=== PATIENT | female | born 1940 | race Caucasian/White ===

== ENCOUNTER 2023-10-03 20:27 | Inpatient (IN) | payer MEDICARE, SELFPAY ==
--- NOTE | ~2023-10-03 | CT_ITS ---
EXAMINATION: CT HEAD WITHOUT CONTRAST CLINICAL INFORMATION: Cognitive decline COMPARISON: None available. TECHNIQUE: Contiguous axial imaging was performed from the skull base to vertex without intravenous administration of contrast. This CT examination was performed using dose optimization techniques as appropriate, variously including the following: *Automated exposure control *Adjustment of mA and/or kV according to patient size (this includes techniques or standardized protocols for targeted exams where dose is matched to indication/reason for exam; i.e. extremities or head) *Use of iterative reconstruction technique DLP: 679 mGy-cm FINDINGS: Ventricles, sulci and cisterns are dilated. Bilateral frontal periventricular white matters show decrease in attenuation. There is no midline shift, no abnormal intra- or extra- axial fluid accumulation. Arnett and white matter differentiation is normal. Bone window images show no evidence of skull fracture. CT/CT head/brain wo IV con IMPRESSION: 1. 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 2. No intracranial hemorrhage or skull fracture is seen. 3. No evidence of space occupying lesion could be found. 4. The current plain CT scan of the brain shows no diagnostic evidence of acute cerebral infarction.
[2023-10-03 20:35] VITALS: BP 145/37; BP 190/90; PULSE 56; PULSE 70; RESP 18; TEMP 36.4; O2SAT 100; O2SAT 99; BMI 15.3
[2023-10-03 21:09] LABS: MANUAL DIFF FLAG NO
[2023-10-03 21:11] LABS: Basophils Percent Auto 0.4 % (0-2); Eosinophils Absolute Auto 0.1 X10*3/uL (0.0-0.4); Eosinophils Percent Auto 1.2 % (0-4); Hematocrit 37.5 % (37.0-47.0); Hemoglobin 13.2 g/dl (12.0-16.0); Imm Gran Abs Auto 0.02 X10*3/uL (0.00-0.03); Imm Gran Pct Auto 0.2 % (0.0-0.4); Lymphocytes Absolute Auto 1.5 X10*3/uL (1.2-4.9); Lymphocytes Percent Auto 16.3 % (20-40); Mean Corpuscular HGB Conc 35.2 g/dl (31.0-35.0); Mean Corpuscular Hemoglobin 30.3 pg (27.0-33.0); Mean Platelet Volume 9.5 fL (9.4-12.3); Monocytes Absolute Auto 0.4 X10*3/uL (0.1-1.2); Monocytes Percent Auto 3.8 % (2-11); Neutrophils Absolute Auto 7.2 x10*3/uL (2.0-8.3); Neutrophils Percent Auto 78.1 % (45-73); Platelet Count 166 X10*3/uL (160-400); Red Blood Count 4.36 X10*6/uL (4.20-5.50); Red Cell Distribution Width 14.7 % (11.0-16.0); White Blood Count 9.2 X10*3/uL (4.8-10.8)
--- NOTE | 2023-10-03 21:28 | ED_ITS ---
HPI - Psych General Chief Complaint: Psychiatric Symptoms Stated Complaint: section 12 from [facility], delusional, hallucinations Time Seen by Provider: 10/03/23 20:34 Source: patient and EMS Mode of arrival: EMS Limitations: altered mental status History of Present Illness ED Provider: paul SPENCE Narrative: Patient's history of dementia and depression Section 12 in the field by and 4 hallucination and delusions verbally aggressive and paranoid with agitation thinking her who is 82 years old having affair with her visiting nurse patient denies any complaints at this time still feels that her having affair with the visiting nurse Related Data Allergies Allergy/AdvReac Type Severity Reaction Status Date / Time codeine Allergy Unknown Verified 10/03/23 20:40 Review of Systems 2 Review of Systems: Yes all other systems are reviewed and are negative [facility] Social History Social History Smoked in Last 30 Days: No Advance Directives: No Advance Directives Information Provided: No Do you have a plan to hurt others: No Plan Physical Exam 2 Vital Signs: Vital Signs: Last Vital Signs Temp 97.5 F 10/04/23 02:00 Pulse 54 10/04/23 02:00 Resp 16 10/04/23 02:00 BP 137/48 L 10/04/23 02:00 Pulse Ox 98 10/04/23 02:00 O2 Del Method Room Air 10/04/23 02:00 BMI result Body Mass Index 15.3 Appearance: Alert. Oriented X2-3. No acute distress. Eyes: PERRLA, No Nystagmus ENT: Pharynx normal. Oral Mucosa moist Neck: Normal inspection. Neck supple. CVS: Normal heart rate and rhythm. Pulses normal. Respiratory: No respiratory distress. Equal air entry bilateral, no wheezing/rales/rhonchi Abdomen: Soft and nontender. Bowel sounds are present, no mass palpable, no CVA tenderness Skin: Skin warm and dry. Normal skin color. Normal skin turgor. Extremities: No lower extremity edema. No calf tenderness Neuro: Oriented X 2-3. No motor deficit. No sensory deficit.No cerebellar signs , cranial nerves II-XII intact Medical Decision Making Lab Data 10/03/23 21:03 10/03/23 21:03 Labs: Lab Results 10/03/23 10/03/23 Range/Units 21:03 22:23 WBC 9.2 (4.8-10.8) X10*3/uL RBC 4.36 (4.20-5.50) X10*6/uL Hgb 13.2 (12.0-16.0) g/dl Hct 37.5 (37.0-47.0) % MCV 86.0 (80.0-98.0) fL MCH 30.3 (27.0-33.0) pg MCHC 35.2 H (31.0-35.0) g/dl RDW 14.7 (11.0-16.0) % Plt Count 166 (160-400) X10*3/uL MPV 9.5 (9.4-12.3) fL Immature Gran % (Auto) 0.2 (0.0-0.4) % Neut % (Auto) 78.1 H (45-73) % Lymph % (Auto) 16.3 L (20-40) % [place] % (Auto) 3.8 (2-11) % Eos % (Auto) 1.2 (0-4) % Baso % (Auto) 0.4 (0-2) % Lymph # (Auto) 1.5 (1.2-4.9) X10*3/uL [place] # (Auto) 0.4 (0.1-1.2) X10*3/uL Eos # (Auto) 0.1 (0.0-0.4) X10*3/uL Baso # (Auto) 0.0 (0.0-0.2) X10*3/uL Abs Immat Gran (auto) 0.02 (0.00-0.03) X10*3/uL Absolute Neuts (auto) 7.2 (2.0-8.3) x10*3/uL Absolute Nucleated RBC 0.000 (0.0-0.012) X10*3/uL Nucleated RBC % (auto) 0.0 (0.0-0.2) /100WBC Sodium 143 (135-145) mmol/L Potassium 4.3 (3.3-5.1) mmol/L Chloride 112 H (96-108) mmol/L Carbon Dioxide 19 L (22-29) mmol/L Anion Gap 16 (12-20) BUN 18 H (9-16) mg/dL Creatinine 1.20 (0.5-1.4) mg/dL Estim Creat Clear Calc 50.2 Estimated GFR 43 Random Glucose 122 H (60-115) mg/dL Calcium 10.2 (8.4-10.2) mg/dL Total Bilirubin 0.5 (0.0-1.0) mg/dL AST 12 (5-31) U/L ALT 8 (0-31) U/L Alkaline Phosphatase 67 (39-117) U/L Total Protein 6.3 L (6.5-8.0) g/dL Albumin 3.7 (3.5-5.0) g/dL Urine Color Yellow Urine Appearance Clear Urine pH 5.5 (5.0-9.0) Ur Specific [place] 1.025 (1.005-1.025) Urine Protein Negative (Neg-Trace) mg/dL Urine Glucose (UA) Negative (Negative) mg/dL Urine Ketones Trace (Negative) mg/dL Urine Blood Negative (Negative) Urine Nitrite Negative (Negative) Ur Leukocyte Esterase Negative (Negative) Urine Opiates Screen Not Detected (Not Detect) Ur Buprenorphine Scrn Not Detected (Not Detect) ng/mL Ur Oxycodone Screen Not Detected (Not Detect) ng/mL Urine Methadone Screen Not Detected (Not Detect) ng/mL Urine Fentanyl Screen Not Detected (Not Detect) Ur Barbiturates Screen Not Detected (Not Detect) Ur Phencyclidine Scrn Not Detected (Not Detect) Ur Amphetamines Screen Not Detected (Not Detect) U Benzodiazepines Scrn Not Detected (Not Detect) Urine Cocaine Screen Not Detected (Not Detect) U Marijuana (THC) Screen Not Detected (Not Detect) Ethyl Alcohol < 10 mg/dL Discharge Plan Discharge Clinical Impression: Dementia with psychotic disturbance Patient Disposition: Still a Patient Interventions: Marty-Suicide Risk Severity Scale Last Done: 10/03/23 20:41 Print Language: German
[2023-10-03 21:43] LABS: Alanine Aminotransferase 8 U/L (0-31); Albumin Level 3.7 g/dL (3.5-5.0); Alkaline Phosphatase 67 U/L (39-117); Anion Gap 16 (12-20); Aspartate Amino Transferase 12 U/L (5-31); Bilirubin Total 0.5 mg/dL (0.0-1.0); Blood Urea Nitrogen 18 mg/dL (9-16); Calcium 10.2 mg/dL (8.4-10.2); Carbon Dioxide 19 mmol/L (22-29); Chloride 112 mmol/L (96-108); Creatinine Clr Calc Pharmacy 50.2; Estimated Glomerular Filt Rate 43; Ethanol < 10 mg/dL; Glucose Random 122 mg/dL (60-115); Potassium 4.3 mmol/L (3.3-5.1); Sodium 143 mmol/L (135-145); Total Protein 6.3 g/dL (6.5-8.0)
--- OUTSIDE RECORDS SUMMARY | 2023-10-03 21:55 | XMS_ITS | Continuity of Care Document ---
Author Organization [facility] Address [address] [place] [id number]- Care Team Providers Care Filter Helper Name Role Phone Sathish QUINTANILLA, Rossana Brandt Primary Care Physician [phone] Encounter [facility] Date(s): 08/07/19 - 09/11/[address] [address]- [facility] Attending Physician: Kerri Lopez MD Admitting Physician: Kerri Lopez MD Referring Physician: Kerri Lopez MD Allergies, Adverse Reactions, Alerts Substance Reaction Severity Status codeine Active colchicine polyp diarhhea nausea Active traMADol Visual hallucinations Active hydroCHLOROthiazide Active Immunizations Given and Recorded Vaccine Date Status Refusal Reason influenza virus vaccine, inactivated 1 02/07/19 Gi agustin pneumococcal 13-valent vaccine 09/23/14 Recorded Influenza Virus Vaccine (oldterm) 12/25/13 Recorde d zoster vaccine, inactivated 12/22/11 Recorded pneumococcal 23-valent vaccine 12/14/11 Recorded diphtheria/tetanus/pertussis, acel(DTaP) 09/05/11 Recorded tetanus-diphtheria toxoids (Td) 04/24/99 Recorded 1Result Comment: [facility]#[id number] Medications allopurinol 100 mg oral tablet 1, tablet, By Mouth, Daily, # 90 tablet, Refills 1, Tot. Refills 0, Maintenance, 08/05/19 8:24:00 EDT, Route to Pharmacy Electronically, [facility], 167, cm, 07/02/19 8:54:00 EDT, Height, 91, kg, 07/02/19 8:54:00 EDT, Dry Weight Start Date: 08/05/19 Status: Ordered glimepiride 2 mg oral tablet 1 tablet, By Mouth, 2 times a day, # 180 tablet, 1 Refills, Maintenance, 09/03/19 11:30:00 EDT, [facility], 167, cm, 07/02/19 8:54:00 EDT, Height, 91, kg, 07/02/19 8:54:00 EDT, Dry Weight Start Date: 09/03/19 Status: Ordered Januvia 100 mg oral tablet 1 tablet = 100 mg, By Mouth, Daily, # 90 tablet, 1 Refills, Maintenance, 08/22/19 10:46:00 EDT, Tablet, [facility]/pharmacy #0838, 167, cm, 07/02/19 8:54:00 EDT, Height, 91, kg, 07/02/19 8:54:00 EDT, Dry Weight Start Date: 08/22/19 Status: Ordered levothyroxine 0.1 mg oral tablet 1 tablet, By Mouth, Daily, # 90 tablet, 1 Refills, Maintenance, 08/29/19 16:39:00 EDT, [facility], 167, cm, 07/02/19 8:54:00 EDT, Height, 91, kg, 07/02/19 8:54:00 EDT, Dry Weight Start Date: 08/29/19 Status: Ordered Lexapro 20 mg oral tablet 1 tablet = 20 mg, By Mouth, Daily, # 30 tablet, 0 Refills, Maintenance, Tablet Start Date: 12/30/11 Status: Ordered LORazepam 0.5 mg oral tablet 1 tablet = 0.5 mg, By Mouth, 3 times a day, 0 Refills, Maintenance, 10/21/16 15:13:32 Start Date: 10/21/16 Status: Ordered metFORMIN 500 mg oral tablet, extended release 1.5 tablet = 750 mg, By Mouth, 2 times a day, # 270 tablet, 0 Refills, Maintenance, 08/02/19 9:34:00 EDT, [facility]/pharmacy #0838, 167, cm, 07/02/19 8:54:00 EDT, Height, 91, kg, 07/02/19 8:54:00 EDT, Dry Weight Start Date: 08/02/19 Status: Ordered Metoprolol Succinate ER 25 mg oral tablet, extended release 1 tablet = 25 mg, By Mouth, Daily, # 90 tablet, 1 Refills, Soft Stop, 02/20/19 16:11:26 EDT Start Date: 02/20/19 Status: Ordered One Touch Verio Test Strips One Touch Verio Test Strips, See Instructions, # 90 each, Refills 3, Tot. Refills 3, Maintenance, To Measure Blood sugar qd E11.9, 08/22/19 13:10:00 EDT, Supply, 167, cm, 07/02/19 8:54:00 EDT, Height, 91, kg, 07/02/19 8:54:00 EDT, Dry Weight Start Date: 08/22/19 Status: Ordered Questran 4 gm/9 gm oral powder for reconstitution 1 pack/packet, By Mouth, 3 times a day, # 90 each, 6 Refills, Maintenance, 03/31/19 14:47:41 EST, REC Powder, 162.5, cm, 02/07/19 15:55:47 EDT, Height Start Date: 03/31/19 Status: Ordered Restasis MultiDose 0.05% ophthalmic emulsion 1 drops, Eyes, Both, Every 12 hours, 0 Refills, Maintenance, 07/31/18 15:04:58 EDT Start Date: 07/31/18 Status: Ordered simvastatin 10 mg oral tablet See Instructions, TAKE 1 TABLET BY MOUTH EVERYDAY AT BEDTIME, # 90 tablet, Refills 1, Maintenance, Instructions Replace Required Details, Route to Pharmacy Electronically, [facility], 167, cm, 07/02/19 8:54:00 EDT, Height, 91, kg, 07/02/19 8:54:0... Start Date: 09/03/19 Status: Ordered spironolactone 25 mg oral tablet 0.5, tablet, By Mouth, Daily, # 45 tablet, Refills 1, Tot. Refills 0, Maintenance, 05/10/19 13:03:00 EST, Route to Pharmacy Electronically, [facility], 162.5, cm, 02/07/19 15:55:00 EDT, Height Start Date: 05/10/19 Status: Ordered Vitamin D3 1000 intl units oral capsule 1 capsule = 1,000 International_Units, By Mouth, Daily, # 100 capsule, 0 Refills, Maintenance, Capsule Start Date: 12/30/11 Status: Ordered zolpidem 10 mg oral tablet 1 tablet = 10 mg, By Mouth, Daily at bedtime, PRN as needed for insomnia, 0 Refills, Maintenance, 07/31/18 15:02:53 EDT, Tablet Start Date: 07/31/18 Status: Ordered Problem List Condition Effective Dates Status Health Status Inform ant Adjustment disorder NOS(Confirmed) Active Basal cell carcinoma of face(Confirmed) Active 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 Other: smoked 4-5 cigarettes per day for 4 years. quit age 71. Sex
--- OUTSIDE RECORDS SUMMARY | 2023-10-03 21:55 | XMS_ITS | Continuity of Care Document ---
Author Organization [facility] Address [address] [place] [address] [address], [address] [place] [address]- Care Team Providers Care Dispatch Manager Name Role Phone Sathish QUINTANILLA, Rossana Brandt Primary Care Physician [phone] Encounter [facility] Date(s): 09/02/19 - 09/09/19 [facility] [address] [place] [address], [address] [place] [address]- [facility] Attending Physician: Kerri Lopez MD Referring Physician: Arnoldo Wray MD Allergies, Adverse Reactions, Alerts Substance Reaction [...] tetanus-diphtheria toxoids (Td) 04/24/99 Recorded 1Result Comment: [facility]#[id number] Medications allopurinol 100 mg oral tablet 1, tablet, By Mouth, Daily, # 90 tablet, Refills 1, Tot. Refills 0, Maintenance, 08/05/19 8:24:00 EDT, Route to Pharmacy Electronically, [facility] 49[facility], 167, cm, 07/02/19 8:54:00 EDT, Height, 91, kg, 07/02/19 8:54:00 EDT, Dry Weight Start Date: 08/05/19 Status: Ordered glimepiride 2 mg oral tablet 1 tablet, By Mouth, 2 times a day, # 180 tablet, 1 Refills, Maintenance, 09/03/19 11:30:00 EDT, [facility], 167, cm, 07/02/19 8:54:00 EDT, Height, 91, kg, 07/02/19 8:54:00 EDT, Dry Weight Start Date: 09/03/19 Status: Ordered Januvia 100 mg oral tablet 1 tablet = 100 mg, By Mouth, Daily, # 90 tablet, 1 Refills, Maintenance, 08/22/19 10:46:00 EDT, Tablet, [facility]/pharmacy #0838, 167, cm, 07/02/19 8:54:00 EDT, Height, 91, kg, 07/02/19 8:54:00 EDT, Dry Weight Start Date: 08/22/19 Status: Ordered levothyroxine 0.1 mg oral tablet 1 tablet, By Mouth, Daily, # 90 tablet, 1 Refills, Maintenance, 08/29/19 16:39:00 EDT, [facility], 167, cm, 07/02/19 8:54:00 EDT, Height, 91, [...] 0 Refills, Maintenance, 08/02/19 9:34:00 EDT, [facility]/pharmacy #0838, 167, cm, 07/02/19 8:54:00 EDT, Height, [...] Replace Required Details, Route to Pharmacy Electronically, [facility] 166[facility], 167, cm, 07/02/19 8:54:00 EDT, Height, 91, kg, 07/02/19 8:54:0... Start Date: 09/03/19 Status: Ordered spironolactone 25 mg oral tablet 0.5, tablet, By Mouth, Daily, # 45 tablet, Refills 1, Tot. Refills 0, Maintenance, 05/10/19 13:03:00 EST, Route to Pharmacy Electronically, [facility] 88633, 162.5, cm, 02/07/19 15:55:00 EDT, Height Start [...] cell cancer(Confirmed) 08/02/19 Active Sjogren's disease(Confirmed) Active Procedures Procedure Date Related Diagnosis Body Site Status Right nephrectomy 08/02/19 Complet ed Social History Social History Type Response Tobacco Use: 4 or less cigar ettes(less than 1/4 pack)/day in last 30 days. Other: smoked 4-5 cigarettes per day for 4 years. quit age 71. Sex
--- OUTSIDE RECORDS SUMMARY | 2023-10-03 21:55 | XMS_ITS | Continuity of Care Document ---
Author Organization [facility] Address [address] [place] [address] [address], [address] [place] [address]- Care Team Providers Care Registration Rep Name Role Phone Sathish QUINTANILLA, Rossana Brandt Primary Care Physician Encounter [facility] Date(s): 01/13/20 - 02/12/20 [facility] [address] [place] [address] Drive, [address] [place] [address]- [facility] Attending Physician: Janet Vivar Admitting Physician: Janet Vivar Referring Physician: AdmtrJanet Allergies, Adverse Reactions, Alerts Substance Reaction Severity [...] tetanus-diphtheria toxoids (Td) 04/24/99 Recorded 1Result Comment: [facility]#[id number] Medications allopurinol 100 mg oral tablet 1, tablet, By Mouth, Daily, # 90 tablet, Refills 1, Tot. Refills 0, Maintenance, 08/05/19 8:24:00 EDT, Route to Pharmacy Electronically, [facility] 239[facility], 167, cm, 07/02/19 8:54:00 EDT, Height, 91, kg, 07/02/19 8:54:00 EDT, Dry Weight Start Date: 08/05/19 Status: Ordered glimepiride 2 mg oral tablet 1 tablet, By Mouth, 2 times a day, # 180 tablet, 1 Refills, Maintenance, 09/03/19 11:30:00 EDT, [facility], [facility], cm, 07/02/19 8:54:00 EDT, Height, 91, kg, 07/02/19 8:54:00 EDT, Dry Weight Start Date: 09/03/19 Status: Ordered Januvia 100 mg oral tablet 1 tablet = 100 mg, By Mouth, Daily, # 60 tablet, 0 Refills, Maintenance, 01/14/20 16:58:00 EDT, Tablet, [facility], Pt needs appt for further refills, 165, cm, 11/20/19 10:33:00 EDT, Height, 84, kg, 11/20/19 10:33:00 EDT, Dry Weight Start Date: 01/14/20 Status: Ordered levothyroxine 0.1 mg oral tablet 1 tablet, By Mouth, Daily, # 90 tablet, 1 Refills, Maintenance, 08/29/19 16:39:00 EDT, [facility], 167, cm, 07/02/19 8:54:00 EDT, Height, 91, kg, 07/02/19 8:54:00 EDT, Dry Weight Start Date: 08/29/19 Status: Ordered Lexapro 20 mg oral tablet 1 tablet = 20 mg, By Mouth, Daily, # 30 tablet, 0 Refills, Maintenance, Tablet Start Date: 12/30/11 Status: Ordered LORazepam 0.5 mg oral tablet 1 tablet = 0.5 mg, By Mouth, 3 times a day, PRN as needed for anxiety, 0 Refills, Maintenance, 10/21/16 15:13:32 EDT Start Date: 10/21/16 Status: Ordered MetFORMIN (Eqv-Glucophage XR) 500 mg oral tablet, extended release 1.5 tablet, By Mouth, 2 times a day, # 270 tablet, 0 Refills, Maintenance, 10/29/19 12:12:00 EDT, [facility], 167, cm, 07/02/19 8:54:00 EDT, Height, 91, kg, 07/02/19 8:54:00 EDT, Dry Weight Start Date: 10/29/19 Status: Ordered Metoprolol Succinate ER 25 mg oral tablet, extended release 1 tablet, By Mouth, Daily, # 90 tablet, 1 Refills, Maintenance, 11/07/19 12:38:00 EDT, [facility], 167, cm, 07/02/19 8:54:00 EDT, Height, 91, kg, 07/02/19 8:54:00 EDT, Dry Weight Start Date: 11/07/19 Status: Ordered One Touch Verio Test Strips [...] Replace Required Details, Route to Pharmacy Electronically, [facility] 105[facility], 167, cm, 07/02/19 8:54:00 EDT, Height, 91, kg, 07/02/19 8:54:0... Start Date: 09/03/19 Status: Ordered spironolactone 25 mg oral tablet 0.5, tablet, By Mouth, Daily, # 45 tablet, Refills 1, Tot. Refills 0, Maintenance, 11/01/19 17:51:00 EDT, Route to Pharmacy Electronically, [facility] 000[facility], 167, cm, 07/02/19 8:54:00 EDT, Height, 91,kg, 07/02/19 8:54:00 EDT, Dry Weight Start Date: 11/01/19 Status: Ordered Vitamin D3 1000 intl units [...]
--- OUTSIDE RECORDS SUMMARY | 2023-10-03 21:55 | XMS_ITS | Continuity of Care Document ---
Author Organization [facility] Address [address] [place] [address] [address], [address] [place] [address]- Care Team Providers Care Product Management Manager Name Role Phone Sathish QUINTANILLA, Rossana Brandt Primary Care Physician [phone] Encounter [facility] Date(s): 10/15/19 - 02/12/20 [facility] [address] [place] [address], [address] [place] [address]- [facility] Attending Physician: Kerri Lopez MD Allergies, Adverse Reactions, [...] tetanus-diphtheria toxoids (Td) 04/24/99 Recorded 1Result Comment: [facility]#[id number] Medications allopurinol 100 mg oral tablet 1, tablet, By Mouth, Daily, # 90 tablet, Refills 1, Tot. Refills 0, Maintenance, 08/05/19 8:24:00 EDT, Route to Pharmacy Electronically, [facility] 544[facility], 167, cm, 07/02/19 8:54:00 EDT, Height, 91, kg, 07/02/19 8:54:00 EDT, Dry Weight Start Date: 08/05/19 Status: Ordered glimepiride 2 mg oral tablet 1 tablet, By Mouth, 2 times a day, # 180 tablet, 1 Refills, Maintenance, 09/03/19 11:30:00 EDT, [facility], 167, cm, 07/02/19 8:54:00 EDT, Height, 91, [...] Refills, Maintenance, 08/29/19 16:39:00 EDT, [facility], 167, cm, 07/02/19 8:54:00 EDT, Height, 91, [...] Refills, Maintenance, 10/29/19 12:12:00 EDT, [facility], 167, cm, 07/02/19 8:54:00 EDT, Height, 91, kg, 07/02/19 8:54:00 EDT, Dry Weight Start Date: 10/29/19 Status: Ordered Metoprolol Succinate ER 25 mg oral tablet, extended release 1 tablet, By Mouth, Daily, # 90 tablet, 1 Refills, Maintenance, 11/07/19 12:38:00 EDT, [facility], 167, cm, 07/02/19 8:54:00 EDT, Height, 91, [...] Replace Required Details, Route to Pharmacy Electronically, [facility], 167, cm, 07/02/19 8:54:00 EDT, Height, 91, kg, 07/02/19 8:54:0... Start Date: 09/03/19 Status: Ordered spironolactone 25 mg oral tablet 0.5, tablet, By Mouth, Daily, # 45 tablet, Refills 1, Tot. Refills 0, Maintenance, 11/01/19 17:51:00 EDT, Route to Pharmacy Electronically, [facility], 167, cm, 07/02/19 8:54:00 EDT, Height, 91,kg, [...]
--- OUTSIDE RECORDS SUMMARY | 2023-10-03 21:55 | XMS_ITS | Continuity of Care Document ---
Author Organization [facility] Address [address] [place] [address] [address], [address] [place] [address]- Care Team Providers Care Geoint Analyst Name Role Phone Sathish QUINTANILLA, Rossana Brandt Primary Care Physician [facility]counter [facility] Date(s): 10/11/19 - 10/18/19 [facility] [address] [place] [address], [address] [place] [address]- [facility] Attending Physician: Kerri Lopez MD Allergies, Adverse [...] tetanus-diphtheria toxoids (Td) 04/24/99 Recorded 1Result Comment: [facility]#[id number] Medications allopurinol 100 mg oral tablet 1, tablet, By Mouth, Daily, # 90 tablet, Refills 1, Tot. Refills 0, Maintenance, 08/05/19 8:24:00 EDT, Route to Pharmacy Electronically, [facility] 6[facility], 167, cm, 07/02/19 8:54:00 EDT, Height, 91, kg, 07/02/19 8:54:00 EDT, Dry Weight Start Date: 08/05/19 Status: Ordered glimepiride 2 mg oral tablet 1 tablet, By Mouth, 2 times a day, # 180 tablet, 1 Refills, Maintenance, 09/03/19 11:30:00 EDT, [facility], 167, cm, 07/02/19 8:54:00 EDT, Height, 91, kg, 07/02/19 8:54:00 EDT, Dry Weight Start Date: 09/03/19 Status: Ordered Januvia 100 mg oral tablet 1 tablet = 100 mg, By Mouth, Daily, # 90 tablet, 1 Refills, Maintenance, 08/22/19 10:46:00 EDT, Tablet, [facility]/pharmacy #0838, 167, cm, 07/02/19 8:54:00 EDT, Height, 91, kg, 07/02/19 8:54:00 EDT, Dry Weight Start Date: 08/22/19 Status: Ordered levothyroxine 0.1 mg oral tablet 1 tablet, By Mouth, Daily, # 90 tablet, 1 Refills, Maintenance, 08/29/19 16:39:00 EDT, [facility], 167, cm, 07/02/19 8:54:00 EDT, Height, 91, [...] tablet, 0 Refills, Maintenance, 08/02/19 9:34:00 EDT, [facility], 167, cm, 07/02/19 8:54:00 EDT, Height, [...] Replace Required Details, Route to Pharmacy Electronically, [facility] 30856, 167, cm, 07/02/19 8:54:00 EDT, Height, 91, kg, 07/02/19 8:54:0... Start Date: 09/03/19 Status: Ordered spironolactone 25 mg oral tablet 0.5, tablet, By Mouth, Daily, # 45 tablet, Refills 1, Tot. Refills 0, Maintenance, 05/10/19 13:03:00 EST, Route to Pharmacy Electronically, [facility] 69084, 162.5, cm, 02/07/19 15:55:00 EDT, Height Start [...]
[2023-10-03 22:17] VITALS: BP 114/30; PULSE 50; O2SAT 99
[2023-10-03 22:39] LABS: Appearance Urine Clear; Color Urine Yellow; Glucose Urine UA Negative (Negative); Leukocyte Esterase Urine Negative (Negative); Nitrite Urine Negative (Negative); PH 5.5 (5.0-9.0); Specific Gravity - Urine 1.025 (1.005-1.025); Urine Blood Negative (Negative); Urine Ketones Trace mg/dL (Negative); Urine Protein Negative (Neg-Trace)
[2023-10-03 22:41] LABS: Amphetamine Screen Urine Not Detected (Not Detect); Barbiturates, Urine Not Detected (Not Detect); Benzodiazepines Screen Urine Not Detected (Not Detect); Buprenorphine Scr Not Detected (Not Detect); Cannabinoid Screen Urine Not Detected (Not Detect); Cocaine Screen Urine Not Detected (Not Detect); Fentanyl, urine Not Detected (Not Detect); Methadone Screen, Urine Not Detected (Not Detect); Opiate Screen Urine Not Detected (Not Detect); Oxycodone Screen Urine Not Detected (Not Detect); Phencyclidine Screen Urine Not Detected (Not Detect)
[2023-10-04] VITALS: BP 156/56; PULSE 50; RESP 16; TEMP 36.4; O2SAT 100
[2023-10-04 02:00] VITALS: BP 137/48; PULSE 54; RESP 16; TEMP 36.4; O2SAT 98
--- NOTE | 2023-10-04 07:44 | ECG_ITS ---
Test Reason : clearance Blood Pressure : / mmHG Vent. Rate : 058 BPM Atrial Rate : 000 BPM P-R Int : 000 ms QRS Dur : 080 ms QT Int : 434 ms P-R-T Axes : 000 -24 044 degrees QTc Int : 426 ms Baseline artifact Likely Sinus bradycardia Inferior infarct , age undetermined Cannot rule out Anterior infarct , age undetermined Abnormal ECG No previous ECGs available Referred By: Jorge Lora Electronically Signed By:SHIV DEWITT
--- NOTE | 2023-10-04 08:59 | PC.NURSE ---
pt alert, oriented. changed to hospital clothes by previous shift. Denies SI/HI. no ccomplaints
--- NOTE | 2023-10-04 10:14 | MHC.CARE ---
Left messages with both patient's , Rogelio, and also Dr Haley, requesting a call back for further info on hx / medical/ and baseline.
[2023-10-04 12:32] LABS: Folate 3.3 ng/mL (> or = 4.0); Vitamin B12 225 pg/mL (200-900)
[2023-10-04 14:49] VITALS: BP 151/55; PULSE 61; RESP 16; O2SAT 96
--- NOTE | 2023-10-04 19:27 | PC.NURSE ---
spoke with Chasity in pharmacy- will send staff to do med rec for pt
--- NOTE | 2023-10-04 19:56 | MHC.CARE ---
RAD Team conducted a state wide bed search for this pt. Referral was sent ot [place]. No other beds available at this time.
--- NOTE | 2023-10-04 20:57 | PHA.MEDREC ---
Pharmacy Consult ? Medication Reconciliation Pharmacy has completed the medication reconciliation. Spoke with patients Jag over the phone to confirm med list. He states patient is no longer on Zolpidem 5 mg at bedtime, Levothyroxine 100mcg daily was changed to Levothyroxine 88 mcg daily. He says patient only uses Restasis in both eyes daily because she refuses the second dose. He also states she is on Januvia 100 mg daily, Lomotil 2.5 mg daily as needed , and cholestramine 1 packet in 4 oz of liquid daily , but no claim for them.
--- NOTE | 2023-10-04 21:34 | PC.NURSE ---
pt moved over to hospital bed for comfort as pt has been made a bed search. pt was cleaned and repositioned, purewick in place no complaints offered at this time
[2023-10-04 23:26] VITALS: BP 154/55; PULSE 61; RESP 16; TEMP 36.4; O2SAT 100
--- NOTE | 2023-10-05 02:16 | MHC.EDTECH ---
pt was incontinent of bowel movement, this pct gave the pt care at the time. pt is in bed resting.
--- NOTE | 2023-10-05 10:57 | P.CNPS_ITS ---
History of Present Illness Chief Complaint: section 12 from [facility], delusional, hallucinations Diagnostics Vital Signs (24Hr): Vital Signs - 24 hr 10/04/23 14:49 10/04/23 23:26 Temperature 97.6 F Pulse Rate 61 61 Respiratory Rate 16 16 Blood Pressure 151/55 H 154/55 H Pulse Oximetry 96 100 Oxygen Delivery Method Room Air Room Air BMI result Body Mass Index 15.3 Labs 10/03/23 21:03 10/03/23 21:03 Labs: Laboratory Results - last 48 hr 10/03/23 10/03/23 10/04/23 21:03 22:23 11:36 WBC 9.2 RBC 4.36 Hgb 13.2 Hct 37.5 MCV 86.0 MCH 30.3 MCHC 35.2 H RDW 14.7 Plt Count 166 MPV 9.5 Immature Gran % (Auto) 0.2 Neut % (Auto) 78.1 H Lymph % (Auto) 16.3 L [place] % (Auto) 3.8 Eos % (Auto) 1.2 Baso % (Auto) 0.4 Lymph # (Auto) 1.5 [place] # (Auto) 0.4 Eos # (Auto) 0.1 Baso # (Auto) 0.0 Abs Immat Gran (auto) 0.02 Absolute Neuts (auto) 7.2 Absolute Nucleated RBC 0.000 Nucleated RBC % (auto) 0.0 Sodium 143 Potassium 4.3 Chloride 112 H Carbon Dioxide 19 L Anion Gap 16 BUN 18 H Creatinine 1.20 Estim Creat Clear Calc 50.2 Estimated GFR 43 Random Glucose 122 H Calcium 10.2 Total Bilirubin 0.5 AST 12 ALT 8 Alkaline Phosphatase 67 Total Protein 6.3 L Albumin 3.7 Vitamin B12 225 Folate 3.3 L TSH 0.40 Urine Color Yellow Urine Appearance Clear Urine pH 5.5 Ur Specific [place] 1.025 Urine Protein Negative Urine Glucose (UA) Negative Urine Ketones Trace Urine Blood Negative Urine Nitrite Negative Ur Leukocyte Esterase Negative Urine Opiates Screen Not Detected Ur Buprenorphine Scrn Not Detected Ur Oxycodone Screen Not Detected Urine Methadone Screen Not Detected Urine Fentanyl Screen Not Detected Ur Barbiturates Screen Not Detected Ur Phencyclidine Scrn Not Detected Ur Amphetamines Screen Not Detected U Benzodiazepines Scrn Not Detected Urine Cocaine Screen Not Detected U Marijuana (THC) Screen Not Detected Ethyl Alcohol < 10 Imaging Radiology Impressions: ITS Impressions Head CT 10/04/23 11:08 IMPRESSION: 1. 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 2. No intracranial hemorrhage or skull fracture is seen. 3. No evidence of space occupying lesion could be found. 4. The current plain CT scan of the brain shows no diagnostic evidence of acute cerebral infarction. Medications Medications Current Medications Acetaminophen (Acetaminophen 325 Mg Tablet) 650 mg PO DAILY PRN PRN Reason: Pain, Mild (Pain Scale 1-3) Allopurinol (Allopurinol 100 Mg Tablet) 100 mg PO DAILY MILAGROS Atorvastatin Calcium (Atorvastatin Calcium 10 Mg Tablet) 10 mg PO DAILY MILAGROS Cholestyramine Resin (Cholestyramine (With Sugar) 4 Gm Powd.Pack) 4 gm PO DAILY MILAGROS Diphenoxylate HCl/Atropine (Diphenoxylate/Atrop 2.5/0.025 Tablet) 1 tab PO DAILY PRN PRN Reason: Diarrhea Escitalopram Oxalate (Escitalopram Oxalate 10 Mg Tablet) 10 mg PO DAILY MILAGROS Levothyroxine Sodium (Levothyroxine Sodium 88 Mcg Tablet) 88 mcg PO DAILY MILAGROS Lorazepam (Lorazepam 0.5 Mg Tablet) 0.5 mg PO DAILY MILAGROS Metformin HCl (Metformin Hcl Er 750 Mg Tab.Er.24h) 750 mg PO BID MILAGROS Metoprolol Succinate (Metoprolol Succinate Er 25 Mg Tab.Er.24h) 25 mg PO DAILY MILAGROS; Protocol Non-Formulary Medication (Cyclosporine [Restasis]) 1 drop EYE-BOTH DAILY MILAGROS Sitagliptin Phosphate (Sitagliptin Phosphate 100 Mg Tablet) 100 mg PO DAILY MILAGROS Spironolactone (Spironolactone 25 Mg Tablet) 12.5 mg PO DAILY MILAGROS; Protocol Allergies Allergies Allergy/AdvReac Type Severity Reaction Status Date / Time codeine Allergy Unknown Verified 10/03/23 20:40 Assessment & Plan Total time managing care of this patient today ____ minutes.
[2023-10-05] MEDS: Cholestyramine (With Sugar) 4 GM POWD.PACK PO (11:17)
[2023-10-05] MEDS: metFORMIN HCl ER 750 MG TAB.ER.24H PO ×2 (11:18→20:55)
[2023-10-05] MEDS: SITagliptin Phosphate 100 MG TABLET PO (11:19)
[2023-10-05] MEDS: Levothyroxine Sodium 88 MCG TABLET PO (11:19)
[2023-10-05 11:20] VITALS: BP 147/85; PULSE 66
[2023-10-05] MEDS: allopurinoL 100 MG TABLET PO (11:20)
[2023-10-05] MEDS: Escitalopram Oxalate 10 MG TABLET PO (11:20)
[2023-10-05] MEDS: Metoprolol Succinate ER 25 MG TAB.ER.24H PO (11:20)
[2023-10-05 11:24] VITALS: BP 147/85
[2023-10-05] MEDS: Spironolactone 25 MG TABLET 12.5 MG PO (11:24)
[2023-10-05] MEDS: LORazepam 0.5 MG TABLET PO (11:26)
[2023-10-05 12:01] VITALS: BP 151/65; PULSE 58; RESP 16; TEMP 36.7; O2SAT 100
--- NOTE | 2023-10-05 12:02 | HO.PSYADMNOT ---
HPI Date of Service: 10/05/23 Chief Complaint: SI Sources of Information: patient interviewed, chart reviewed and crisis/core team assessment reviewed HPI Subjective Notes: Guerra Warning and Conditional Voluntary Narrative: Mrs. Jin is a 83 year-old woman who was brought by to [facility] ED due to 2-3 month history of delusions related to thinking that is having an affair with [facility]. She does not have previous psychiatric history nor established diagnosis of dementia. In the ED, utox is negative. UA did not show s/s of UTI. CBC without leukocytosis. Head CT shows atrophy and periventricular bilateral frontal microangiopathy. Pt seen in her room. She is pleasant and cooperative. She reports that in the past 3 months after she return home from prolonged admission in short term rehab, she noticed that visiting nurse who was caring for her, was spending time with her . She reports they talked and laughed. She reported that she noticed that it was more than just friendly talk and asked her to fire the nurse. It has been now about 2 months since nurse if not officially hired to care for her and come to the house, but pt reports she suspects this woman has moved into their house and she can hear her specially at night. She reports hearing sounds of high heals at night. She also reports hearing mumbles which she suspects is her talking or whispering. She reports she has not seen her. She reports she has called the police in the middle of the night and they have checked the house and there is no trace of this woman. Pt reports she probably leaves the house every morning at around 3 am. She reports she has confronted her who pt reports has denied having an affair. She does not believe him. She states his face expression seems to be guilty. She reports in revenge she turns on the radio really loud at night and complaints that he can't sleep. She reports she does not want her in the house anymore and has asked him to leave the house. She reports their adult children are concern and also tell her that her is not having an affair. She denies SI/HI. She reports she has been brought by family to [facility] at suggestion of her psychiatrist, Dr. Haley. She reports they told me I may have a uti but I don't, I am not crazy! Past Psychiatric History: INpt: none prior OP: sees Dr. Anjel Haley for depression, no prior hx of delusions or psychosis. 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 She has two adult children. Substance History: none Trauma History: not disclosed Diagnostics Vital Signs (24Hr): Vital Signs - 24 hr 10/04/23 14:49 10/04/23 23:26 10/05/23 11:20 Temperature 97.6 F Pulse Rate 61 61 66 Respiratory Rate 16 16 Blood Pressure 151/55 H 154/55 H 147/85 H Pulse Oximetry 96 100 Oxygen Delivery Method Room Air Room Air 10/05/23 11:24 Temperature Pulse Rate Respiratory Rate Blood Pressure 147/85 H Pulse Oximetry Oxygen Delivery Method BMI result Body Mass Index 15.3 Labs 10/03/23 21:03 10/03/23 21:03 Labs: Laboratory Results - last 48 hr 10/03/23 10/03/23 10/04/23 21:03 22:23 11:36 WBC 9.2 RBC 4.36 Hgb 13.2 Hct 37.5 MCV 86.0 MCH 30.3 MCHC 35.2 H RDW 14.7 Plt Count 166 MPV 9.5 Immature Gran % (Auto) 0.2 Neut % (Auto) 78.1 H Lymph % (Auto) 16.3 L [place] % (Auto) 3.8 Eos % (Auto) 1.2 Baso % (Auto) 0.4 Lymph # (Auto) 1.5 [place] # (Auto) 0.4 Eos # (Auto) 0.1 Baso # (Auto) 0.0 Abs Immat Gran (auto) 0.02 Absolute Neuts (auto) 7.2 Absolute Nucleated RBC 0.000 Nucleated RBC % (auto) 0.0 Sodium 143 Potassium 4.3 Chloride 112 H Carbon Dioxide 19 L Anion Gap 16 BUN 18 H Creatinine 1.20 Estim Creat Clear Calc 50.2 Estimated GFR 43 Random Glucose 122 H Calcium 10.2 Total Bilirubin 0.5 AST 12 ALT 8 Alkaline Phosphatase 67 Total Protein 6.3 L Albumin 3.7 Vitamin B12 225 Folate 3.3 L TSH 0.40 Urine Color Yellow Urine Appearance Clear Urine pH 5.5 Ur Specific [place] [facility] 1.025 Urine Protein Negative Urine Glucose (UA) Negative Urine Ketones Trace Urine Blood Negative Urine Nitrite Negative Ur Leukocyte Esterase Negative Urine Opiates Screen Not Detected Ur Buprenorphine Scrn Not Detected Ur Oxycodone Screen Not Detected Urine Methadone Screen Not Detected Urine Fentanyl Screen Not Detected Ur Barbiturates Screen Not Detected Ur Phencyclidine Scrn Not Detected Ur Amphetamines Screen Not Detected U Benzodiazepines Scrn Not Detected Urine Cocaine Screen Not Detected U Marijuana (THC) Screen Not Detected Ethyl Alcohol < 10 Imaging Radiology Impressions: ITS Impressions Head CT 10/04/23 11:08 IMPRESSION: 1. 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 2. No intracranial hemorrhage or skull fracture is seen. 3. No evidence of space occupying lesion could be found. 4. The current plain CT scan of the brain shows no diagnostic evidence of acute cerebral infarction. Meds/Allergies Meds Home Medications ?Medication ?Instructions ?Recorded ?Confirmed ?Type acetaminophen 500 mg tablet 500 mg PO DAILY PRN Pain 10/04/23 10/04/23 History allopurinol 100 mg tablet 100 mg PO DAILY 10/04/23 10/04/23 History cholestyramine (with sugar) 4 gram 4 g PO DAILY 10/04/23 10/04/23 History powder for susp in a packet cyclosporine 0.05 % eye drops in a 1 drp ophthalmic (eye) DAILY 10/04/23 10/04/23 History dropperette (Restasis) diphenoxylate-atropine 2.5 1 tab PO DAILY PRN Diarrhea 10/04/23 10/04/23 History mg-0.025 mg tablet (Lomotil) escitalopram oxalate 10 mg tablet 10 mg PO DAILY 10/04/23 10/04/23 History levothyroxine 88 mcg tablet 88 mcg PO DAILY 10/04/23 10/04/23 History lorazepam 0.5 mg tablet 0.5 mg PO DAILY anxiety 10/04/23 10/04/23 History metformin 500 mg tablet,extended 750 mg PO BID 10/04/23 10/04/23 History release 24 hr metoprolol succinate 25 mg 25 mg PO DAILY 10/04/23 10/04/23 History tablet,extended release 24 hr simvastatin 10 mg tablet 10 mg PO BEDTIME 10/04/23 10/04/23 History sitagliptin phosphate 100 mg 100 mg PO DAILY 10/04/23 10/04/23 History tablet (Januvia) spironolactone 25 mg tablet 12.5 mg PO DAILY 10/04/23 10/04/23 History Allergies Allergies Allergy/AdvReac Type Severity Reaction Status Date / Time codeine Allergy Unknown Verified 10/03/23 20:40 Mental Status Exam Mental Status Exam Narrative: Appearance: wearing hospital gown, fair hygiene, in NAD Behavior: cooperative, friendly Psychomotor: no agitation or retardation noted Speech: clear, normal rate/rhythm/volume, spontaneous TP: linear TC: upset with about affair and with adult children for not believing her Mood: good, calm Affect: congruent, more upset affect when discussing affair, despite her saying she is okay about it SI: denies HI: denies VH/AH: not at the moment Delusions: seems delusions related to having an affair Insight/judgment: fair x 2. Memory/cog: alert, oriented x 3. pending MOCA/ACL Assessment & Plan Assessment & Plan (1) MCI (mild cognitive impairment): Status: Acute Code(s): G31.84 - Mild cognitive impairment of uncertain or unknown etiology Plan Mrs. Jin is a 83 year-old woman who has been presenting with delusions of having an affair with former visiting nurse who was coming to their house. Pt reports hearing people walking, mumbles. She has not seen this woman but is sure that she has moved in to their house and leaves every day at around 3am. She has called the police, which has not found anyone other than her and her at night. However, this has not been reassuring but instead pt insists this woman is fast and clever. No prior history of psychosis or delusions. Pt does NOT present as delirious either. 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 I discuss with patient work up for dementia and other cognitive impairments. She seems to show some degree of understanding and agreement to complete testing and is in agreement with admission. Her orientation is fairly intact. Her language seems to be preserved. Further testing will help elucidate if any other cognitive areas with impairment. B12 is low- may consider cyanocobalamine 1000mcg IM q weekly for 4 weeks, then oral. PLAN 1. Admit to S1, CV, 15 minutes checks 2. continue current medications. 3. obtain collateral information 4. aftercare planning. Patient educated on: diagnosis and medication risk/benefits Reason for continued inpatient stay Substantial Risk for: inability to function Statement Statement: I have reviewed the history and physical and performed a pertinent examination on my patient. No changes have occurred unless specified. If the History and Physical was not performed prior to admission, the Hospitalist's service will be consulted for completing the admission physical. Time Spent With Patient Time: Total time managing care of this patient today ____ minutes.
[2023-10-05 12:08] VITALS: BMI 33.4
[2023-10-05 16:06] VITALS: BP 110/59; PULSE 60; RESP 16; TEMP 36.3; O2SAT 100
[2023-10-05 16:07] VITALS: BMI 25.6
--- NOTE | 2023-10-05 17:22 | PC.ADMIT ---
Kylie arrived to the unit at 1400, met with Olivia [employer] signed conditional voluntary. Sharp check done by typewriter ribbon winder and female RN, skin intact. Kylie is bed bound, reports she fell seven months ago and has not been able to walk stated I think I have muscle atrophy by now. She reports thinking about walking Or when I'm being moved around, causes her anxiety as she is Scared to fall. When asked what brought her in she reports her daughter called her an ambulance, She thinks I'm seeing things. She reports that her has been Sneaking, around with her nurse, stated I can hear her come in, they also turned the lights off, she reports that she kicked him out states This is really happening. She reports her night medications were changed and she saw black spiders on her floor stated I know they're not really there. She appears to be having visual hallucinations as she was sitting with typewriter ribbon winder in room and stated They're is a head with worms and a hat spinning at the wedge of the door, she asked typewriter ribbon winder What can be causing me to have this? Per assessment she was brought in to [facility] via ambulance after been seen by N at her home, the mobile crisis assessment was requested by her psychiatrist Dr. Haley who informed [facility] that patient was Floridly psychotic. Kylie has a history of hypertension, hyperlipidemia, diabetes, Sjogrens (autoimmune disease), IBS, arthritis, gout, and sleep apnea, she also reports she had her gallbladder and one kidney removed. 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
[2023-10-05 20:27] VITALS: BP 134/65; PULSE 65; RESP 18; TEMP 35.3; O2SAT 100
[2023-10-05 20:58] LABS: Glucose, Whole Blood 108 mg/dL (60-115)
[2023-10-06 07:55] LABS: Glucose, Whole Blood 96 mg/dL (60-115)
[2023-10-06 08:00] VITALS: BP 165/70; PULSE 67; RESP 18; TEMP 36.9; O2SAT 99
[2023-10-06 08:40] VITALS: BP 165/70; PULSE 67
[2023-10-06] MEDS: Escitalopram Oxalate 10 MG TABLET PO (08:40)
[2023-10-06] MEDS: allopurinoL 100 MG TABLET PO (08:40)
[2023-10-06] MEDS: LORazepam 0.5 MG TABLET PO (08:40)
[2023-10-06] MEDS: Metoprolol Succinate ER 25 MG TAB.ER.24H PO (08:40)
[2023-10-06 08:41] VITALS: BP 165/70
[2023-10-06] MEDS: Spironolactone 25 MG TABLET 12.5 MG PO (08:41)
[2023-10-06] MEDS: metFORMIN HCl ER 750 MG TAB.ER.24H PO ×2 (08:41→20:16)
[2023-10-06] MEDS: Atorvastatin Calcium 10 MG TABLET PO (08:41)
[2023-10-06] MEDS: Levothyroxine Sodium 88 MCG TABLET PO (08:41)
[2023-10-06] MEDS: SITagliptin Phosphate 100 MG TABLET PO (08:41)
[2023-10-06 08:42] LABS: Alanine Aminotransferase 7 U/L (0-31); Albumin Level 3.8 g/dL (3.5-5.0); Alkaline Phosphatase 65 U/L (39-117); Anion Gap 13 (12-20); Aspartate Amino Transferase 8 U/L (5-31); Bilirubin Total 0.5 mg/dL (0.0-1.0); Blood Urea Nitrogen 18 mg/dL (9-16); Calcium 10.5 mg/dL (8.4-10.2); Carbon Dioxide 23 mmol/L (22-29); Chloride 109 mmol/L (96-108); Cholesterol 143 mg/dL (<200); Creatinine Clr Calc Pharmacy 41.9; Estimated Glomerular Filt Rate 54; Glucose Fasting 103 mg/dL (60-99); HDL Cholesterol 49 mg/dL (>40); LDL Cholesterol Calculated 64 mg/dL (<100); Potassium 4.2 mmol/L (3.3-5.1); Sodium 141 mmol/L (135-145); Total Protein 6.5 g/dL (6.5-8.0); Triglycerides 151 mg/dL (<150)
[2023-10-06] MEDS: Acetaminophen 325 MG TABLET 650 MG PO (08:49)
--- NOTE | 2023-10-06 08:56 | HO.PSYADMNOT ---
HPI Date of Service: 10/06/23 Chief Complaint: SI Sources of Information: patient interviewed, chart reviewed and crisis/core team assessment reviewed HPI Subjective Notes: Guerra Warning and Conditional Voluntary Past Psychiatric History: INpt: none prior OP: sees Dr. Anjel Haley for depression, no prior hx of delusions or psychosis. 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 Trauma History: not disclosed Diagnostics Vital Signs (24Hr): Vital Signs - 24 hr 10/05/23 11:20 10/05/23 11:24 10/05/23 12:01 Temperature 98.1 F Pulse Rate 66 58 Respiratory Rate 16 Blood Pressure 147/85 H 147/85 H 151/65 H Pulse Oximetry 100 Oxygen Delivery Method Room Air 10/05/23 16:06 10/05/23 20:27 10/06/23 08:40 Temperature 97.3 F 95.6 F L Pulse Rate 60 65 67 Respiratory Rate 16 18 Blood Pressure 110/59 L 134/65 165/70 H Pulse Oximetry 100 100 Oxygen Delivery Method Room Air Room Air 10/06/23 08:41 Temperature Pulse Rate Respiratory Rate Blood Pressure 165/70 H Pulse Oximetry Oxygen Delivery Method BMI result Body Mass Index 25.6 Labs 10/03/23 21:03 10/06/23 08:10 Labs: Laboratory Results - last 48 hr 10/04/23 10/05/23 10/06/23 11:36 20:54 07:49 Sodium Potassium Chloride Carbon Dioxide Anion Gap BUN Creatinine Estim Creat Clear Calc Estimated GFR POC Glucose 108 96 Fasting Glucose Calcium Total Bilirubin AST ALT Alkaline Phosphatase Total Protein Albumin Triglycerides Cholesterol LDL Cholesterol, Calc HDL Cholesterol Vitamin B12 225 Folate 3.3 L TSH 0.40 10/06/23 08:10 Sodium 141 Potassium 4.2 Chloride 109 H Carbon Dioxide 23 Anion Gap 13 BUN 18 H Creatinine 0.98 Estim Creat Clear Calc 41.9 Estimated GFR 54 POC Glucose Fasting Glucose 103 H Calcium 10.5 H Total Bilirubin 0.5 AST 8 ALT 7 Alkaline Phosphatase 65 Total Protein 6.5 Albumin 3.8 Triglycerides 151 H Cholesterol 143 LDL Cholesterol, Calc 64 HDL Cholesterol 49 Vitamin B12 Folate TSH Imaging Radiology Impressions: ITS Impressions Head CT 10/04/23 11:08 IMPRESSION: 1. 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 2. No intracranial hemorrhage or skull fracture is seen. 3. No evidence of space occupying lesion could be found. 4. The current plain CT scan of the brain shows no diagnostic evidence of acute cerebral infarction. Meds/Allergies Meds Home Medications ?Medication ?Instructions ?Recorded ?Confirmed ?Type acetaminophen 500 mg tablet 500 mg PO DAILY PRN Pain 10/04/23 10/04/23 History allopurinol 100 mg tablet 100 mg PO DAILY 10/04/23 10/04/23 History cholestyramine (with sugar) 4 gram 4 g PO DAILY 10/04/23 10/04/23 History powder for susp in a packet cyclosporine 0.05 % eye drops in a 1 drp ophthalmic (eye) DAILY 10/04/23 10/04/23 History dropperette (Restasis) diphenoxylate-atropine 2.5 1 tab PO DAILY PRN Diarrhea 10/04/23 10/04/23 History mg-0.025 mg tablet (Lomotil) escitalopram oxalate 10 mg tablet 10 mg PO DAILY 10/04/23 10/04/23 History levothyroxine 88 mcg tablet 88 mcg PO DAILY 10/04/23 10/04/23 History lorazepam 0.5 mg tablet 0.5 mg PO DAILY anxiety 10/04/23 10/04/23 History metformin 500 mg tablet,extended 750 mg PO BID 10/04/23 10/04/23 History release 24 hr metoprolol succinate 25 mg 25 mg PO DAILY 10/04/23 10/04/23 History tablet,extended release 24 hr simvastatin 10 mg tablet 10 mg PO BEDTIME 10/04/23 10/04/23 History sitagliptin phosphate 100 mg 100 mg PO DAILY 10/04/23 10/04/23 History tablet (Januvia) spironolactone 25 mg tablet 12.5 mg PO DAILY 10/04/23 10/04/23 History Allergies Allergies Allergy/AdvReac Type Severity Reaction Status Date / Time codeine Allergy Unknown Verified 10/03/23 20:40 Assessment & Plan Statement Statement: I have reviewed the history and physical and performed a pertinent examination on my patient. No changes have occurred unless specified. If the History and Physical was not performed prior to admission, the Hospitalist's service will be consulted for completing the admission physical. Time Spent With Patient Time: Total time managing care of this patient today ____ minutes.
[2023-10-06] MEDS: Cholestyramine (With Sugar) 4 GM POWD.PACK PO (10:11)
--- NOTE | 2023-10-06 15:44 | P.PNPSI_ITS ---
Subjective Subjective Date of Service: 10/06/23 Reason For Visit: SI Subjective Notes: Conditional Voluntary Interim History: The nursing staff reported the patient had been pleasant cooperative, reports some auditory hallucinations and visual hallucinations such as a bad but she is very well aware that they are not real. On interview the patient does not feel disturbed by the visual hallucinations and she is concerned about her medications causing the the symptoms. We discussed options and she agreed to add Haldol as a p.r.n.. Mental Status Exam Mental Status Exam Patient Appearance: Appropriate (On hospital gowns) Patient Orientation: Person and Situation Level of Consciousness: Awake and Appropriate Patient Behavior: Cooperative and Passive Mood Description: Withdrawn Affect Description: Calm Patient Cognition Impaired: Yes Ability to Follow Directions: Good Speech Pattern: Clear Hallucinations: None Delusions: Paranoid Ideation and Ideas of Reference Perceptual Disturbances: Hallucinations Thought Process: Distracted Thought Content: positive for Circumstantial Judgement: Fair Diagnostics Vital Signs (24Hr): Vital Signs - 24 hr 10/05/23 16:06 10/05/23 20:27 10/06/23 08:00 Temperature 97.3 F 95.6 F L 98.4 F Pulse Rate 60 65 67 Respiratory Rate 16 18 18 Blood Pressure 110/59 L 134/65 165/70 H Pulse Oximetry 100 100 99 Oxygen Delivery Method Room Air Room Air Room Air 10/06/23 08:40 10/06/23 08:41 Temperature Pulse Rate 67 Respiratory Rate Blood Pressure 165/70 H 165/70 H Pulse Oximetry Oxygen Delivery Method BMI result Body Mass Index 25.6 Labs 10/03/23 21:03 10/06/23 08:10 Labs: Laboratory Results - last 48 hr 10/05/23 10/06/23 10/06/23 20:54 07:49 08:10 Sodium 141 Potassium 4.2 Chloride 109 H Carbon Dioxide 23 Anion Gap 13 BUN 18 H Creatinine 0.98 Estim Creat Clear Calc 41.9 Estimated GFR 54 POC Glucose 108 96 Fasting Glucose 103 H Calcium 10.5 H Total Bilirubin 0.5 AST 8 ALT 7 Alkaline Phosphatase 65 Total Protein 6.5 Albumin 3.8 Triglycerides 151 H Cholesterol 143 LDL Cholesterol, Calc 64 HDL Cholesterol 49 Imaging Radiology Impressions: ITS Impressions Head CT 10/04/23 11:08 IMPRESSION: 1. 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 2. No intracranial hemorrhage or skull fracture is seen. 3. No evidence of space occupying lesion could be found. 4. The current plain CT scan of the brain shows no diagnostic evidence of acute cerebral infarction. Medications Medications Current Medications Acetaminophen (Acetaminophen 325 Mg Tablet) 650 mg PO Q6H PRN PRN Reason: Headache/Pain Mild Scale (1-3) Last Admin: 10/06/23 08:49 Dose: 650 mg Al Hydroxide/Mg Hydroxide (Magnesium Hydrox/Alum Hydrox 30 Ml Oral.Susp) 30 ml PO Q6H PRN PRN Reason: Heartburn/Nausea Allopurinol (Allopurinol 100 Mg Tablet) 100 mg PO DAILY [facility] Last Admin: 10/06/23 08:40 Dose: 100 mg Atorvastatin Calcium (Atorvastatin Calcium 10 Mg Tablet) 10 mg PO DAILY [facility] Last Admin: 10/06/23 08:41 Dose: 10 mg Cholestyramine Resin (Cholestyramine (With Sugar) 4 Gm Powd.Pack) 4 gm PO DAILY [facility] Last Admin: 10/06/23 10:11 Dose: 4 gm Diphenoxylate HCl/Atropine (Diphenoxylate/Atrop 2.5/0.025 Tablet) 1 tab PO DAILY PRN PRN Reason: Diarrhea Escitalopram Oxalate (Escitalopram Oxalate 10 Mg Tablet) 10 mg PO DAILY [facility] Last Admin: 10/06/23 08:40 Dose: 10 mg Hydroxyzine HCl (Hydroxyzine Hcl 25 Mg Tablet) 25 mg PO Q6H PRN PRN Reason: Anxiety Levothyroxine Sodium (Levothyroxine Sodium 88 Mcg Tablet) 88 mcg PO DAILY [facility] Last Admin: 10/06/23 08:41 Dose: 88 mcg Lorazepam (Lorazepam 0.5 Mg Tablet) 0.5 mg PO DAILY [facility] Last Admin: 10/06/23 08:40 Dose: 0.5 mg Magnesium Hydroxide (Milk Of Magnesia 30 Ml Oral.Susp) 30 ml PO DAILY PRN PRN Reason: Constipation Metformin HCl (Metformin Hcl Er 750 Mg Tab.Er.24h) 750 mg PO BID [facility] Last Admin: 10/06/23 08:41 Dose: 750 mg Metoprolol Succinate (Metoprolol Succinate Er 25 Mg Tab.Er.24h) 25 mg PO DAILY [facility]; Protocol Last Admin: 10/06/23 08:40 Dose: 25 mg Non-Formulary Medication (Cyclosporine [Restasis]) 1 drop EYE-BOTH DAILY [facility] Sitagliptin Phosphate (Sitagliptin Phosphate 100 Mg Tablet) 100 mg PO DAILY [facility] Last Admin: 10/06/23 08:41 Dose: 100 mg Spironolactone (Spironolactone 25 Mg Tablet) 12.5 mg PO DAILY [facility]; Protocol Last Admin: 10/06/23 08:41 Dose: 12.5 mg Trazodone HCl (Trazodone Hcl 50 Mg Tablet) 50 mg PO BEDTIME MRX1 PRN PRN Reason: Insomnia Allergies Allergies Allergy/AdvReac Type Severity Reaction Status Date / Time codeine Allergy Unknown Verified 10/03/23 20:40 Assessment & Plan Assessment & Plan (1) MCI (mild cognitive impairment): Status: Acute Code(s): G31.84 - Mild cognitive impairment of uncertain or unknown etiology Plan Mrs. Jin is a 83 year-old woman who has been presenting with delusions of having an affair with former visiting nurse who was coming to their house. Pt reports hearing people walking, mumbles. She has not seen this woman but is sure that she has moved in to their house and leaves every day at around 3am. She has called the police, which has not found anyone other than her and her at night. However, this has not been reassuring but instead pt insists this woman is fast and clever. No prior history of psychosis or delusions. Pt does NOT present as delirious either. 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 I discuss with patient work up for dementia and other cognitive impairments. She seems to show some degree of understanding and agreement to complete testing and is in agreement with admission. Her orientation is fairly intact. Her language seems to be preserved. Further testing will help elucidate if any other cognitive areas with impairment. B12 is low- may consider cyanocobalamine 1000mcg IM q weekly for 4 weeks, then oral. PLAN 1. Admit to S1, CV, 15 minutes checks 2. continue current medications. 3. obtain collateral information 4. aftercare planning. 5. Add Haldol 2 mg p.o. q.6 hours p.r.n. visual hallucinations. Reason for continued inpatient stay Substantial Risk for: inability to function, rapid decompensation and med/psych decompensation Time Spent With Patient Time: Total time managing care of this patient today __20__ minutes.
[2023-10-06 19:24] VITALS: BP 136/60; PULSE 75; RESP 18; TEMP 36.6; O2SAT 96
[2023-10-06 19:47] LABS: Glucose, Whole Blood 91 mg/dL (60-115)
[2023-10-07 07:08] LABS: Glucose, Whole Blood 96 mg/dL (60-115)
[2023-10-07 08:00] VITALS: BP 126/58; PULSE 61; RESP 18; TEMP 36.7; O2SAT 98
[2023-10-07] MEDS: metFORMIN HCl ER 750 MG TAB.ER.24H PO ×2 (09:26→20:23)
[2023-10-07] MEDS: Atorvastatin Calcium 10 MG TABLET PO (09:26)
[2023-10-07] MEDS: Escitalopram Oxalate 10 MG TABLET PO (09:26)
[2023-10-07] MEDS: allopurinoL 100 MG TABLET PO (09:26)
[2023-10-07] MEDS: Levothyroxine Sodium 88 MCG TABLET PO (09:26)
[2023-10-07] MEDS: SITagliptin Phosphate 100 MG TABLET PO (09:26)
[2023-10-07 09:42] VITALS: BP 126/58
[2023-10-07] MEDS: Spironolactone 25 MG TABLET 12.5 MG PO (09:42)
[2023-10-07 09:43] VITALS: BP 126/58; PULSE 61
[2023-10-07] MEDS: Metoprolol Succinate ER 25 MG TAB.ER.24H PO (09:43)
[2023-10-07] MEDS: Cholestyramine (With Sugar) 4 GM POWD.PACK PO (09:55)
--- NOTE | 2023-10-07 11:52 | P.PNPSI_ITS ---
Subjective Subjective Date of Service: 10/07/23 Reason For Visit: SI Subjective Notes: Conditional Voluntary Interim History: Patient was seen and discussed in rounds today. Records and plans were reviewed. She has been pleasant, cheerful and cooperative. No complaints reports of pain. Some anxiety present. Some auditory hallucinations reported but she is not bothered by them. Eating and sleeping well. No changes were made today Review of Systems Review of Systems Yes all other systems are reviewed and are negative Mental Status Exam Mental Status Exam Patient Appearance: Appropriate (On hospital gowns) Patient Orientation: Person and Situation Level of Consciousness: Awake and Appropriate Patient Behavior: Cooperative and Passive Mood Description: Withdrawn Affect Description: Calm Patient Cognition Impaired: Yes Ability to Follow Directions: Good Speech Pattern: Clear Hallucinations: None Delusions: Paranoid Ideation and Ideas of Reference Perceptual Disturbances: Hallucinations Thought Process: Distracted Thought Content: positive for Circumstantial Judgement: Fair Diagnostics Vital Signs (24Hr): Vital Signs - 24 hr 10/06/23 19:24 10/07/23 08:00 10/07/23 09:42 Temperature 97.8 F 98.0 F Pulse Rate 75 61 Respiratory Rate 18 18 Blood Pressure 136/60 126/58 L 126/58 L Pulse Oximetry 96 98 Oxygen Delivery Method Room Air Room Air 10/07/23 09:43 Temperature Pulse Rate 61 Respiratory Rate Blood Pressure 126/58 L Pulse Oximetry Oxygen Delivery Method BMI result Body Mass Index 25.6 Labs 10/03/23 21:03 10/06/23 08:10 Labs: Laboratory Results - last 48 hr 10/05/23 10/06/23 10/06/23 20:54 07:49 08:10 Sodium 141 Potassium 4.2 Chloride 109 H Carbon Dioxide 23 Anion Gap 13 BUN 18 H Creatinine 0.98 Estim Creat Clear Calc 41.9 Estimated GFR 54 POC Glucose 108 96 Fasting Glucose 103 H Calcium 10.5 H Total Bilirubin 0.5 AST 8 ALT 7 Alkaline Phosphatase 65 Total Protein 6.5 Albumin 3.8 Triglycerides 151 H Cholesterol 143 LDL Cholesterol, Calc 64 HDL Cholesterol 49 10/06/23 10/07/23 19:38 07:01 Sodium Potassium Chloride Carbon Dioxide Anion Gap BUN Creatinine Estim Creat Clear Calc Estimated GFR POC Glucose 91 96 Fasting Glucose Calcium Total Bilirubin AST ALT Alkaline Phosphatase Total Protein Albumin Triglycerides Cholesterol LDL Cholesterol, Calc HDL Cholesterol Imaging Radiology Impressions: ITS Impressions Head CT 10/04/23 11:08 IMPRESSION: 1. 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 2. No intracranial hemorrhage or skull fracture is seen. 3. No evidence of space occupying lesion could be found. 4. The current plain CT scan of the brain shows no diagnostic evidence of acute cerebral infarction. Medications Medications Current Medications Acetaminophen (Acetaminophen 325 Mg Tablet) 650 mg PO Q6H PRN PRN Reason: Headache/Pain Mild Scale (1-3) Last Admin: 10/06/23 08:49 Dose: 650 mg Al Hydroxide/Mg Hydroxide (Magnesium Hydrox/Alum Hydrox 30 Ml Oral.Susp) 30 ml PO Q6H PRN PRN Reason: Heartburn/Nausea Allopurinol (Allopurinol 100 Mg Tablet) 100 mg PO DAILY [facility] Last Admin: 10/07/23 09:26 Dose: 100 mg Atorvastatin Calcium (Atorvastatin Calcium 10 Mg Tablet) 10 mg PO DAILY [facility] Last Admin: 10/07/23 09:26 Dose: 10 mg Cholestyramine Resin (Cholestyramine (With Sugar) 4 Gm Powd.Pack) 4 gm PO DAILY [facility] Last Admin: 10/07/23 09:55 Dose: 4 gm Diphenoxylate HCl/Atropine (Diphenoxylate/Atrop 2.5/0.025 Tablet) 1 tab PO DAILY PRN PRN Reason: Diarrhea Escitalopram Oxalate (Escitalopram Oxalate 10 Mg Tablet) 10 mg PO DAILY [facility] Last Admin: 10/07/23 09:26 Dose: 10 mg Haloperidol (Haloperidol 1 Mg Tablet) 2 mg PO Q6H PRN PRN Reason: Psychosis Hydroxyzine HCl (Hydroxyzine Hcl 25 Mg Tablet) 25 mg PO Q6H PRN PRN Reason: Anxiety Levothyroxine Sodium (Levothyroxine Sodium 88 Mcg Tablet) 88 mcg PO DAILY [facility] Last Admin: 10/07/23 09:26 Dose: 88 mcg Lorazepam (Lorazepam 0.5 Mg Tablet) 0.5 mg PO DAILY [facility] Last Admin: 10/07/23 09:32 Dose: Not Given Magnesium Hydroxide (Milk Of Magnesia 30 Ml Oral.Susp) 30 ml PO DAILY PRN PRN Reason: Constipation Metformin HCl (Metformin Hcl Er 750 Mg Tab.Er.24h) 750 mg PO BID [facility] Last Admin: 10/07/23 09:26 Dose: 750 mg Metoprolol Succinate (Metoprolol Succinate Er 25 Mg Tab.Er.24h) 25 mg PO DAILY [facility]; Protocol Last Admin: 10/07/23 09:43 Dose: 25 mg Non-Formulary Medication (Cyclosporine [Restasis]) 1 drop EYE-BOTH DAILY [facility] Sitagliptin Phosphate (Sitagliptin Phosphate 100 Mg Tablet) 100 mg PO DAILY [facility] Last Admin: 10/07/23 09:26 Dose: 100 mg Spironolactone (Spironolactone 25 Mg Tablet) 12.5 mg PO DAILY [facility]; Protocol Last Admin: 10/07/23 09:42 Dose: 12.5 mg Trazodone HCl (Trazodone Hcl 50 Mg Tablet) 50 mg PO BEDTIME MRX1 PRN PRN Reason: Insomnia Allergies Allergies Allergy/AdvReac Type Severity Reaction Status Date / Time codeine Allergy Unknown Verified 10/03/23 20:40 Assessment & Plan Assessment & Plan (1) MCI (mild cognitive impairment): Status: Acute Code(s): G31.84 - Mild cognitive impairment of uncertain or unknown etiology Plan Mrs. Jin is a 83 year-old woman who has been presenting with delusions of having an affair with former visiting nurse who was coming to their house. Pt reports hearing people walking, mumbles. She has not seen this woman but is sure that she has moved in to their house and leaves every day at around 3am. She has called the police, which has not found anyone other than her and her at night. However, this has not been reassuring but instead pt insists this woman is fast and clever. No prior history of psychosis or delusions. Pt does NOT present as delirious either. 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 I discuss with patient work up for dementia and other cognitive impairments. She seems to show some degree of understanding and agreement to complete testing and is in agreement with admission. Her orientation is fairly intact. Her language seems to be preserved. Further testing will help elucidate if any other cognitive areas with impairment. B12 is low- may consider cyanocobalamine 1000mcg IM q weekly for 4 weeks, then oral. PLAN 1. Admit to S1, CV, 15 minutes checks 2. continue current medications. 3. obtain collateral information 4. aftercare planning. 5. Add Haldol 2 mg p.o. q.6 hours p.r.n. visual hallucinations. 10/06: Continue current regimen and plans Reason for continued inpatient stay Substantial Risk for: inability to function Time Spent With Patient Time: Total time managing care of this patient today ____ minutes.
[2023-10-07 20:00] VITALS: BP 91/68; PULSE 62; TEMP 36.7; O2SAT 100
[2023-10-07 20:13] LABS: Glucose, Whole Blood 95 mg/dL (60-115)
[2023-10-07] MEDS: traZODone HCL 50 MG TABLET PO (20:30)
[2023-10-08 06:44] LABS: Glucose, Whole Blood 93 mg/dL (60-115)
[2023-10-08 08:00] VITALS: BP 115/65; PULSE 61; RESP 18; TEMP 36; O2SAT 98
--- NOTE | 2023-10-08 08:44 | HO.PSYCHPN ---
Subjective Subjective Date of Service: 10/08/23 Reason For Visit: SI Subjective Notes: Conditional Voluntary Interim History: Patient was seen and discussed in rounds today. Records and plans were reviewed. She talked about the Ativan which is ordered for morning and she states that she refused it yesterday and does not want to take it every day. At home she takes it later but she has been sleeping with the trazodone. I will change that to a p.r.n. order daily. She states that she was asked to come out of her room and sit in a chair but 4 hours was a little too long for her. She is going to modify that today. Sleeping adequately. Denies any depression or anxiety. She is medication compliant Review of Systems Review of Systems Some back pain from the sitting Yes all other systems are reviewed and are negative Mental Status Exam Mental Status Exam Patient Appearance: Appropriate (On hospital gowns) Patient Orientation: Person and Situation Level of Consciousness: Awake and Appropriate Patient Behavior: Cooperative and Passive Mood Description: Withdrawn Affect Description: Calm Patient Cognition Impaired: Yes Ability to Follow Directions: Good Speech Pattern: Clear Hallucinations: None Delusions: Paranoid Ideation and Ideas of Reference Perceptual Disturbances: Hallucinations Thought Process: Distracted Thought Content: positive for Circumstantial Judgement: Fair Diagnostics Vital Signs (24Hr): Vital Signs - 24 hr 10/07/23 09:42 10/07/23 09:43 10/07/23 20:00 Temperature 98.1 F Pulse Rate 61 62 Blood Pressure 126/58 L 126/58 L 91/68 Pulse Oximetry 100 Oxygen Delivery Method Room Air BMI result Body Mass Index 25.6 Labs 10/03/23 21:03 10/06/23 08:10 Labs: Laboratory Results - last 48 hr 10/06/23 10/07/23 10/07/23 19:38 07:01 20:03 POC Glucose 91 96 95 10/08/23 06:27 POC Glucose 93 Imaging Radiology Impressions: ITS Impressions Head CT 10/04/23 11:08 IMPRESSION: 1. 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 2. No intracranial hemorrhage or skull fracture is seen. 3. No evidence of space occupying lesion could be found. 4. The current plain CT scan of the brain shows no diagnostic evidence of acute cerebral infarction. Medications Medications Current Medications Acetaminophen (Acetaminophen 325 Mg Tablet) 650 mg PO Q6H PRN PRN Reason: Headache/Pain Mild Scale (1-3) Last Admin: 10/06/23 08:49 Dose: 650 mg Al Hydroxide/Mg Hydroxide (Magnesium Hydrox/Alum Hydrox 30 Ml Oral.Susp) 30 ml PO Q6H PRN PRN Reason: Heartburn/Nausea Allopurinol (Allopurinol 100 Mg Tablet) 100 mg PO DAILY [facility] Last Admin: 10/07/23 09:26 Dose: 100 mg Atorvastatin Calcium (Atorvastatin Calcium 10 Mg Tablet) 10 mg PO DAILY [facility] Last Admin: 10/07/23 09:26 Dose: 10 mg Cholestyramine Resin (Cholestyramine (With Sugar) 4 Gm Powd.Pack) 4 gm PO DAILY [facility] Last Admin: 10/07/23 09:55 Dose: 4 gm Diphenoxylate HCl/Atropine (Diphenoxylate/Atrop 2.5/0.025 Tablet) 1 tab PO DAILY PRN PRN Reason: Diarrhea Escitalopram Oxalate (Escitalopram Oxalate 10 Mg Tablet) 10 mg PO DAILY [facility] Last Admin: 10/07/23 09:26 Dose: 10 mg Haloperidol (Haloperidol 1 Mg Tablet) 2 mg PO Q6H PRN PRN Reason: Psychosis Hydroxyzine HCl (Hydroxyzine Hcl 25 Mg Tablet) 25 mg PO Q6H PRN PRN Reason: Anxiety Levothyroxine Sodium (Levothyroxine Sodium 88 Mcg Tablet) 88 mcg PO DAILY [facility] Last Admin: 10/07/23 09:26 Dose: 88 mcg Lorazepam (Lorazepam 0.5 Mg Tablet) 0.5 mg PO DAILY PRN PRN Reason: anxiety Magnesium Hydroxide (Milk Of Magnesia 30 Ml Oral.Susp) 30 ml PO DAILY PRN PRN Reason: Constipation Metformin HCl (Metformin Hcl Er 750 Mg Tab.Er.24h) 750 mg PO BID [facility] Last Admin: 10/07/23 20:23 Dose: 750 mg Metoprolol Succinate (Metoprolol Succinate Er 25 Mg Tab.Er.24h) 25 mg PO DAILY [facility]; Protocol Last Admin: 10/07/23 09:43 Dose: 25 mg Non-Formulary Medication (Cyclosporine [Restasis]) 1 drop EYE-BOTH DAILY [facility] Sitagliptin Phosphate (Sitagliptin Phosphate 100 Mg Tablet) 100 mg PO DAILY [facility] Last Admin: 10/07/23 09:26 Dose: 100 mg Spironolactone (Spironolactone 25 Mg Tablet) 12.5 mg PO DAILY [facility]; Protocol Last Admin: 10/07/23 09:42 Dose: 12.5 mg Trazodone HCl (Trazodone Hcl 50 Mg Tablet) 50 mg PO BEDTIME MRX1 PRN PRN Reason: Insomnia Last Admin: 10/07/23 20:30 Dose: 50 mg Allergies Allergies Allergy/AdvReac Type Severity Reaction Status Date / Time codeine Allergy Unknown Verified 10/03/23 20:40 Assessment & Plan Assessment & Plan (1) MCI (mild cognitive impairment): Status: Acute Code(s): G31.84 - Mild cognitive impairment of uncertain or unknown etiology Plan Mrs. Jin is a 83 year-old woman who has been presenting with delusions of having an affair with former visiting nurse who was coming to their house. Pt reports hearing people walking, mumbles. She has not seen this woman but is sure that she has moved in to their house and leaves every day at around 3am. She has called the police, which has not found anyone other than her and her at night. However, this has not been reassuring but instead pt insists this woman is fast and clever. No prior history of psychosis or delusions. Pt does NOT present as delirious either. 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 I discuss with patient work up for dementia and other cognitive impairments. She seems to show some degree of understanding and agreement to complete testing and is in agreement with admission. Her orientation is fairly intact. Her language seems to be preserved. Further testing will help elucidate if any other cognitive areas with impairment. B12 is low- may consider cyanocobalamine 1000mcg IM q weekly for 4 weeks, then oral. PLAN 1. Admit to S1, CV, 15 minutes checks 2. continue current medications. 3. obtain collateral information 4. aftercare planning. 5. Add Haldol 2 mg p.o. q.6 hours p.r.n. visual hallucinations. 10/06: Continue current regimen and plans 10/07: Continue current plans and regimen. Change the Ativan to p.r.n. use Patient educated on: medication risk/benefits Reason for continued inpatient stay Substantial Risk for: rapid decompensation Time Spent With Patient Time: Total time managing care of this patient today ____ minutes.
[2023-10-08] MEDS: Acetaminophen 325 MG TABLET 650 MG PO (08:58)
[2023-10-08] MEDS: metFORMIN HCl ER 750 MG TAB.ER.24H PO ×2 (08:58→20:24)
[2023-10-08] MEDS: SITagliptin Phosphate 100 MG TABLET PO (08:58)
[2023-10-08 08:59] VITALS: BP 115/65; PULSE 61
[2023-10-08] MEDS: Metoprolol Succinate ER 25 MG TAB.ER.24H PO (08:59)
[2023-10-08] MEDS: Atorvastatin Calcium 10 MG TABLET PO (08:59)
[2023-10-08] MEDS: allopurinoL 100 MG TABLET PO (08:59)
[2023-10-08 09:01] VITALS: BP 115/65
[2023-10-08] MEDS: Escitalopram Oxalate 10 MG TABLET PO (09:01)
[2023-10-08] MEDS: Spironolactone 25 MG TABLET 12.5 MG PO (09:01)
[2023-10-08] MEDS: Levothyroxine Sodium 88 MCG TABLET PO (09:03)
[2023-10-08] MEDS: Cholestyramine (With Sugar) 4 GM POWD.PACK PO (11:12)
[2023-10-08 20:00] VITALS: BP 122/57; PULSE 98; RESP 16; TEMP 36.2; O2SAT 100
[2023-10-08] MEDS: traZODone HCL 50 MG TABLET PO (20:24)
[2023-10-08 20:33] LABS: Glucose, Whole Blood 97 mg/dL (60-115)
[2023-10-09] MEDS: Levothyroxine Sodium 88 MCG TABLET PO (06:30)
[2023-10-09 06:42] LABS: Glucose, Whole Blood 94 mg/dL (60-115)
[2023-10-09 08:00] VITALS: BP 111/55; PULSE 62; RESP 18; TEMP 36.8; O2SAT 96
[2023-10-09 08:47] VITALS: BP 111/55
[2023-10-09] MEDS: allopurinoL 100 MG TABLET PO (08:47)
[2023-10-09] MEDS: SITagliptin Phosphate 100 MG TABLET PO (08:47)
[2023-10-09] MEDS: Spironolactone 25 MG TABLET 12.5 MG PO (08:47)
[2023-10-09] MEDS: Atorvastatin Calcium 10 MG TABLET PO (08:47)
[2023-10-09] MEDS: Escitalopram Oxalate 10 MG TABLET PO (08:47)
[2023-10-09] MEDS: metFORMIN HCl ER 750 MG TAB.ER.24H PO ×2 (08:47→20:46)
[2023-10-09 08:48] VITALS: BP 111/55
[2023-10-09] MEDS: Metoprolol Succinate ER 25 MG TAB.ER.24H PO (08:48)
[2023-10-09 08:52] VITALS: BP 111/55; PULSE 65; RESP 18; TEMP 36.7; O2SAT 98
--- NOTE | 2023-10-09 12:16 | P.PNPSI_ITS ---
Subjective Subjective Date of Service: 10/09/23 Reason For Visit: SI Subjective Notes: Conditional Voluntary Interim History: The nursing staff reported the patient presented with flat affect out in the milieu. She needed p.r.n. trazodone and she slept 8 hours. The occupational therapist will do cognitive assessment today Baldwin an Pete test. On interview the patient denies visual hallucinations, when asked about the delusion that her is cheating on her she is sure about that. Mental Status Exam Mental Status Exam Patient Appearance: Appropriate Patient Orientation: Person and Situation Level of Consciousness: Awake and Appropriate Patient Behavior: Guarded and Passive Mood Description: Calm Affect Description: Constricted Patient Cognition Impaired: Yes Ability to Follow Directions: Good Speech Pattern: Clear Hallucinations: None Delusions: Ideas of Reference Thought Process: Distracted and Slowed Thinking Thought Content: positive for [place] and positive for Poverty of Content Judgement: Fair Diagnostics Vital Signs (24Hr): Vital Signs - 24 hr 10/08/23 20:00 10/09/23 08:00 10/09/23 08:47 Temperature 97.1 F 98.2 F Pulse Rate 98 62 Respiratory Rate 16 18 Blood Pressure 122/57 L 111/55 L 111/55 L Pulse Oximetry 100 96 Oxygen Delivery Method Room Air Room Air 10/09/23 08:48 10/09/23 08:52 Temperature 98.1 F Pulse Rate 65 Respiratory Rate 18 Blood Pressure 111/55 L 111/55 L Pulse Oximetry 98 Oxygen Delivery Method Room Air BMI result Body Mass Index 25.6 Labs 10/03/23 21:03 10/06/23 08:10 Labs: Laboratory Results - last 48 hr 10/07/23 10/08/23 10/08/23 20:03 06:27 20:22 POC Glucose 95 93 97 10/09/23 06:26 POC Glucose 94 Imaging Radiology Impressions: ITS Impressions Head CT 10/04/23 11:08 IMPRESSION: 1. 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 2. No intracranial hemorrhage or skull fracture is seen. 3. No evidence of space occupying lesion could be found. 4. The current plain CT scan of the brain shows no diagnostic evidence of acute cerebral infarction. Medications Medications Current Medications Acetaminophen (Acetaminophen 325 Mg Tablet) 650 mg PO Q6H PRN PRN Reason: Headache/Pain Mild Scale (1-3) Last Admin: 10/08/23 08:58 Dose: 650 mg Al Hydroxide/Mg Hydroxide (Magnesium Hydrox/Alum Hydrox 30 Ml Oral.Susp) 30 ml PO Q6H PRN PRN Reason: Heartburn/Nausea Allopurinol (Allopurinol 100 Mg Tablet) 100 mg PO DAILY [facility] Last Admin: 10/09/23 08:47 Dose: 100 mg Atorvastatin Calcium (Atorvastatin Calcium 10 Mg Tablet) 10 mg PO DAILY [facility] Last Admin: 10/09/23 08:47 Dose: 10 mg Cholestyramine Resin (Cholestyramine (With Sugar) 4 Gm Powd.Pack) 4 gm PO DAILY [facility] Last Admin: 10/09/23 08:50 Dose: Not Given Diphenoxylate HCl/Atropine (Diphenoxylate/Atrop 2.5/0.025 Tablet) 1 tab PO DAILY PRN PRN Reason: Diarrhea Escitalopram Oxalate (Escitalopram Oxalate 10 Mg Tablet) 10 mg PO DAILY [facility] Last Admin: 10/09/23 08:47 Dose: 10 mg Haloperidol (Haloperidol 1 Mg Tablet) 2 mg PO Q6H PRN PRN Reason: Psychosis Hydroxyzine HCl (Hydroxyzine Hcl 25 Mg Tablet) 25 mg PO Q6H PRN PRN Reason: Anxiety Levothyroxine Sodium (Levothyroxine Sodium 88 Mcg Tablet) 88 mcg PO DAILY@0630 [facility] Last Admin: 10/09/23 06:30 Dose: 88 mcg Lorazepam (Lorazepam 0.5 Mg Tablet) 0.5 mg PO DAILY PRN PRN Reason: anxiety Magnesium Hydroxide (Milk Of Magnesia 30 Ml Oral.Susp) 30 ml PO DAILY PRN PRN Reason: Constipation Metformin HCl (Metformin Hcl Er 750 Mg Tab.Er.24h) 750 mg PO BID [facility] Last Admin: 10/09/23 08:47 Dose: 750 mg Metoprolol Succinate (Metoprolol Succinate Er 25 Mg Tab.Er.24h) 25 mg PO DAILY [facility]; Protocol Last Admin: 10/09/23 08:48 Dose: 25 mg Non-Formulary Medication (Cyclosporine [Restasis]) 1 drop EYE-BOTH DAILY [facility] Sitagliptin Phosphate (Sitagliptin Phosphate 100 Mg Tablet) 100 mg PO DAILY [facility] Last Admin: 10/09/23 08:47 Dose: 100 mg Spironolactone (Spironolactone 25 Mg Tablet) 12.5 mg PO DAILY [facility]; Protocol Last Admin: 10/09/23 08:47 Dose: 12.5 mg Trazodone HCl (Trazodone Hcl 50 Mg Tablet) 50 mg PO BEDTIME MRX1 PRN PRN Reason: Insomnia Last Admin: 10/08/23 20:24 Dose: 50 mg Allergies Allergies Allergy/AdvReac Type Severity Reaction Status Date / Time codeine Allergy Unknown Verified 10/03/23 20:40 Assessment & Plan Assessment & Plan (1) MCI (mild cognitive impairment): Status: Acute Code(s): G31.84 - Mild cognitive impairment of uncertain or unknown etiology Plan Mrs. Jin is a 83 year-old woman who has been presenting with delusions of having an affair with former visiting nurse who was coming to their house. Pt reports hearing people walking, mumbles. She has not seen this woman but is sure that she has moved in to their house and leaves every day at around 3am. She has called the police, which has not found anyone other than her and her at night. However, this has not been reassuring but instead pt insists this woman is fast and clever. No prior history of psychosis or delusions. Pt does NOT present as delirious either. 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 I discuss with patient work up for dementia and other cognitive impairments. She seems to show some degree of understanding and agreement to complete testing and is in agreement with admission. Her orientation is fairly intact. Her language seems to be preserved. Further testing will help elucidate if any other cognitive areas with impairment. B12 is low- may consider cyanocobalamine 1000mcg IM q weekly for 4 weeks, then oral. PLAN 1. Admit to S1, CV, 15 minutes checks 2. continue current medications. 3. obtain collateral information 4. aftercare planning. 5. Add Haldol 2 mg p.o. q.6 hours p.r.n. visual hallucinations. 6. Ativan was changed to p.r.n. over the weekend. Reason for continued inpatient stay Substantial Risk for: inability to function, rapid decompensation and med/psych decompensation Time Spent With Patient Time: Total time managing care of this patient today __20__ minutes.
[2023-10-09 20:00] VITALS: BP 114/54; PULSE 79; RESP 16; TEMP 36.3; O2SAT 97
[2023-10-09] MEDS: traZODone HCL 50 MG TABLET PO (20:46)
[2023-10-09 21:04] LABS: Glucose, Whole Blood 93 mg/dL (60-115)
[2023-10-10] MEDS: Levothyroxine Sodium 88 MCG TABLET PO (06:49)
[2023-10-10 06:58] LABS: Glucose, Whole Blood 78 mg/dL (60-115)
[2023-10-10 09:00] VITALS: BP 132/60; PULSE 70; RESP 16; TEMP 36.1; O2SAT 98
[2023-10-10] MEDS: allopurinoL 100 MG TABLET PO (09:13)
[2023-10-10] MEDS: SITagliptin Phosphate 100 MG TABLET PO (09:13)
[2023-10-10] MEDS: metFORMIN HCl ER 750 MG TAB.ER.24H PO ×2 (09:14→20:56)
[2023-10-10] MEDS: Escitalopram Oxalate 10 MG TABLET PO (09:15)
[2023-10-10] MEDS: Atorvastatin Calcium 10 MG TABLET PO (09:15)
[2023-10-10] MEDS: Metoprolol Succinate ER 25 MG TAB.ER.24H PO (09:15)
[2023-10-10] MEDS: Spironolactone 25 MG TABLET 12.5 MG PO (09:16)
[2023-10-10] MEDS: Acetaminophen 325 MG TABLET 650 MG PO (09:34)
--- NOTE | 2023-10-10 12:26 | P.PNPSI_ITS ---
Subjective Subjective Date of Service: 10/10/23 Reason For Visit: SI Subjective Notes: Conditional Voluntary Interim History: The nursing staff reported the patient denies auditory hallucination, she was seen in the milieu socializing pleasant cooperative she slept 8 hours. The 7th grade social studies teacher reported that she met with her who reports sporadic hallucinations. The occupational therapist is going to start cognitive assessment today. We will consider the use of Rexulti for agitation in dementia but 1st we need a clear measurement of her scores on the [place] and the Pete test. On interview the patient denies new symptoms she is pleasantly cooperative but confused at times Mental Status Exam Mental Status Exam Patient Appearance: Appropriate Patient Orientation: Person and Situation Level of Consciousness: Awake and Appropriate Patient Behavior: Guarded and Passive Mood Description: Withdrawn Affect Description: Constricted Patient Cognition Impaired: Yes Ability to Follow Directions: Good Speech Pattern: Clear Hallucinations: None Delusions: Not Present Thought Process: Distracted and Slowed Thinking Thought Content: positive for [place] and positive for Poverty of Content Judgement: Fair Diagnostics Vital Signs (24Hr): Vital Signs - 24 hr 10/09/23 20:00 10/10/23 09:00 Temperature 97.3 F 97 F Pulse Rate 79 70 Respiratory Rate 16 16 Blood Pressure 114/54 L 132/60 Pulse Oximetry 97 98 Oxygen Delivery Method Room Air Room Air BMI result Body Mass Index 25.6 Labs 10/03/23 21:03 10/06/23 08:10 Labs: Laboratory Results - last 48 hr 10/08/23 10/09/23 10/09/23 20:22 06:26 20:49 POC Glucose 97 94 93 10/10/23 06:46 POC Glucose 78 Imaging Radiology Impressions: ITS Impressions Head CT 10/04/23 11:08 IMPRESSION: 1. 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 2. No intracranial hemorrhage or skull fracture is seen. 3. No evidence of space occupying lesion could be found. 4. The current plain CT scan of the brain shows no diagnostic evidence of acute cerebral infarction. Medications Medications Current Medications Acetaminophen (Acetaminophen 325 Mg Tablet) 650 mg PO Q6H PRN PRN Reason: Headache/Pain Mild Scale (1-3) Last Admin: 10/10/23 09:34 Dose: 650 mg Al Hydroxide/Mg Hydroxide (Magnesium Hydrox/Alum Hydrox 30 Ml Oral.Susp) 30 ml PO Q6H PRN PRN Reason: Heartburn/Nausea Allopurinol (Allopurinol 100 Mg Tablet) 100 mg PO DAILY [facility] Last Admin: 10/10/23 09:13 Dose: 100 mg Atorvastatin Calcium (Atorvastatin Calcium 10 Mg Tablet) 10 mg PO DAILY [facility] Last Admin: 10/10/23 09:15 Dose: 10 mg Cholestyramine Resin (Cholestyramine (With Sugar) 4 Gm Powd.Pack) 4 gm PO DAILY [facility] Last Admin: 10/10/23 09:18 Dose: Not Given Diphenoxylate HCl/Atropine (Diphenoxylate/Atrop 2.5/0.025 Tablet) 1 tab PO DAILY PRN PRN Reason: Diarrhea Escitalopram Oxalate (Escitalopram Oxalate 10 Mg Tablet) 10 mg PO DAILY [facility] Last Admin: 10/10/23 09:15 Dose: 10 mg Haloperidol (Haloperidol 1 Mg Tablet) 2 mg PO Q6H PRN PRN Reason: Psychosis Hydroxyzine HCl (Hydroxyzine Hcl 25 Mg Tablet) 25 mg PO Q6H PRN PRN Reason: Anxiety Levothyroxine Sodium (Levothyroxine Sodium 88 Mcg Tablet) 88 mcg PO DAILY@0630 [facility] Last Admin: 10/10/23 06:49 Dose: 88 mcg Lorazepam (Lorazepam 0.5 Mg Tablet) 0.5 mg PO DAILY PRN PRN Reason: anxiety Magnesium Hydroxide (Milk Of Magnesia 30 Ml Oral.Susp) 30 ml PO DAILY PRN PRN Reason: Constipation Metformin HCl (Metformin Hcl Er 750 Mg Tab.Er.24h) 750 mg PO BID [facility] Last Admin: 10/10/23 09:14 Dose: 750 mg Metoprolol Succinate (Metoprolol Succinate Er 25 Mg Tab.Er.24h) 25 mg PO DAILY [facility]; Protocol Last Admin: 10/10/23 09:15 Dose: 25 mg Non-Formulary Medication (Cyclosporine [Restasis]) 1 drop EYE-BOTH DAILY [facility] Sitagliptin Phosphate (Sitagliptin Phosphate 100 Mg Tablet) 100 mg PO DAILY [facility] Last Admin: 10/10/23 09:13 Dose: 100 mg Spironolactone (Spironolactone 25 Mg Tablet) 12.5 mg PO DAILY [facility]; Protocol Last Admin: 10/10/23 09:16 Dose: 12.5 mg Trazodone HCl (Trazodone Hcl 50 Mg Tablet) 50 mg PO BEDTIME MRX1 PRN PRN Reason: Insomnia Last Admin: 10/09/23 20:46 Dose: 50 mg Allergies Allergies Allergy/AdvReac Type Severity Reaction Status Date / Time codeine Allergy Unknown Verified 10/03/23 20:40 Assessment & Plan Assessment & Plan (1) MCI (mild cognitive impairment): Status: Acute Code(s): G31.84 - Mild cognitive impairment of uncertain or unknown etiology Plan Mrs. Jin is a 83 year-old woman who has been presenting with delusions of having an affair with former visiting nurse who was coming to their house. Pt reports hearing people walking, mumbles. She has not seen this woman but is sure that she has moved in to their house and leaves every day at around 3am. She has called the police, which has not found anyone other than her and her at night. However, this has not been reassuring but instead pt insists this woman is fast and clever. No prior history of psychosis or delusions. Pt does NOT present as delirious either. 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 I discuss with patient work up for dementia and other cognitive impairments. She seems to show some degree of understanding and agreement to complete testing and is in agreement with admission. Her orientation is fairly intact. Her language seems to be preserved. Further testing will help elucidate if any other cognitive areas with impairment. B12 is low- may consider cyanocobalamine 1000mcg IM q weekly for 4 weeks, then oral. PLAN 1. Admit to S1, CV, 15 minutes checks 2. continue current medications. 3. obtain collateral information 4. aftercare planning. 5. Add Haldol 2 mg p.o. q.6 hours p.r.n. visual hallucinations. 6. Ativan was changed to p.r.n. over the weekend. 7. Occupational therapist will do as cognitive assessment and we will start treatment accordingly. Reason for continued inpatient stay Substantial Risk for: inability to function, rapid decompensation and med/psych decompensation Time Spent With Patient Time: Total time managing care of this patient today __20__ minutes.
[2023-10-10 20:00] VITALS: BP 119/58; PULSE 62; RESP 18; TEMP 36.1; O2SAT 100
[2023-10-10 20:49] LABS: Glucose, Whole Blood 92 mg/dL (60-115)
[2023-10-10] MEDS: Milk of Magnesia 30 ML ORAL.SUSP PO (20:56)
[2023-10-10] MEDS: traZODone HCL 50 MG TABLET PO (20:56)
[2023-10-11] MEDS: Levothyroxine Sodium 88 MCG TABLET PO (06:10)
[2023-10-11 06:53] LABS: Glucose, Whole Blood 86 mg/dL (60-115)
[2023-10-11 08:00] VITALS: BP 152/86; PULSE 61; RESP 18; TEMP 36.3; O2SAT 99
[2023-10-11 08:43] VITALS: BP 152/86
[2023-10-11] MEDS: Spironolactone 25 MG TABLET 12.5 MG PO (08:43)
[2023-10-11] MEDS: Atorvastatin Calcium 10 MG TABLET PO (08:43)
[2023-10-11] MEDS: allopurinoL 100 MG TABLET PO (08:43)
[2023-10-11] MEDS: SITagliptin Phosphate 100 MG TABLET PO (08:43)
[2023-10-11 08:44] VITALS: BP 152/86; PULSE 61
[2023-10-11] MEDS: Metoprolol Succinate ER 25 MG TAB.ER.24H PO (08:44)
[2023-10-11] MEDS: Escitalopram Oxalate 10 MG TABLET PO (08:44)
[2023-10-11] MEDS: metFORMIN HCl ER 750 MG TAB.ER.24H PO ×2 (08:45→21:37)
--- NOTE | 2023-10-11 13:08 | HO.PSYCHPN ---
Subjective Subjective Date of Service: 10/11/23 Reason For Visit: SI Subjective Notes: Conditional Voluntary Interim History: The nursing staff reported the patient is alert oriented to self only, she had been flat but cooperative, confused at times. She slept 6 hours. The social science teacher will arrange a family meeting soon. The occupational therapist did cognitive assessment and she scored 17/30 on the [place] and 3.4 on the Pete test. The patient reported that she feels fine she looks confused at times. She agreed to start Aricept 5 mg p.o. q.h.s. to target cognitive impairment Mental Status Exam Mental Status Exam Patient Appearance: Appropriate Patient Orientation: Person and Situation Level of Consciousness: Awake and Appropriate Patient Behavior: Guarded and Passive Mood Description: Withdrawn Affect Description: Constricted Patient Cognition Impaired: Yes Ability to Follow Directions: Good Speech Pattern: Clear Hallucinations: None Delusions: Ideas of Reference Thought Process: Distracted Thought Content: positive for [place] and positive for Poverty of Content Judgement: Fair Diagnostics Vital Signs (24Hr): Vital Signs - 24 hr 10/10/23 20:00 10/11/23 08:00 10/11/23 08:43 Temperature 97 F 97.4 F Pulse Rate 62 61 Respiratory Rate 18 18 Blood Pressure 119/58 L 152/86 H 152/86 H Pulse Oximetry 100 99 Oxygen Delivery Method Room Air Room Air 10/11/23 08:44 Temperature Pulse Rate 61 Respiratory Rate Blood Pressure 152/86 H Pulse Oximetry Oxygen Delivery Method BMI result Body Mass Index 25.6 Labs 10/03/23 21:03 10/06/23 08:10 Labs: Laboratory Results - last 48 hr 10/09/23 10/10/23 10/10/23 20:49 06:46 20:31 POC Glucose 93 78 92 10/11/23 06:38 POC Glucose 86 Imaging Radiology Impressions: ITS Impressions Head CT 10/04/23 11:08 IMPRESSION: 1. 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 2. No intracranial hemorrhage or skull fracture is seen. 3. No evidence of space occupying lesion could be found. 4. The current plain CT scan of the brain shows no diagnostic evidence of acute cerebral infarction. Medications Medications Current Medications Acetaminophen (Acetaminophen 325 Mg Tablet) 650 mg PO Q6H PRN PRN Reason: Headache/Pain Mild Scale (1-3) Last Admin: 10/10/23 09:34 Dose: 650 mg Al Hydroxide/Mg Hydroxide (Magnesium Hydrox/Alum Hydrox 30 Ml Oral.Susp) 30 ml PO Q6H PRN PRN Reason: Heartburn/Nausea Allopurinol (Allopurinol 100 Mg Tablet) 100 mg PO DAILY [facility] BEDS AT [facility] Last Admin: 10/11/23 08:43 Dose: 100 mg Atorvastatin Calcium (Atorvastatin Calcium 10 Mg Tablet) 10 mg PO DAILY [facility] 234 BEDS AT [facility] Last Admin: 10/11/23 08:43 Dose: 10 mg Cholestyramine Resin (Cholestyramine (With Sugar) 4 Gm Powd.Pack) 4 gm PO DAILY [facility] 234 BEDS AT [facility] Last Admin: 10/11/23 11:47 Dose: Not Given Diphenoxylate HCl/Atropine (Diphenoxylate/Atrop 2.5/0.025 Tablet) 1 tab PO DAILY PRN PRN Reason: Diarrhea Donepezil HCl (Donepezil Hcl 5 Mg Tablet) 5 mg PO BEDTIME COUNTS INCLUDE 234 BEDS AT THE [facility] Escitalopram Oxalate (Escitalopram Oxalate 10 Mg Tablet) 10 mg PO DAILY [facility] 234 BEDS AT [facility] Last Admin: 10/11/23 08:44 Dose: 10 mg Haloperidol (Haloperidol 1 Mg Tablet) 2 mg PO Q6H PRN PRN Reason: Psychosis Hydroxyzine HCl (Hydroxyzine Hcl 25 Mg Tablet) 25 mg PO Q6H PRN PRN Reason: Anxiety Levothyroxine Sodium (Levothyroxine Sodium 88 Mcg Tablet) 88 mcg PO DAILY@0630 [facility] 234 BEDS AT [facility] Last Admin: 10/11/23 06:10 Dose: 88 mcg Lorazepam (Lorazepam 0.5 Mg Tablet) 0.5 mg PO DAILY PRN PRN Reason: anxiety Magnesium Hydroxide (Milk Of Magnesia 30 Ml Oral.Susp) 30 ml PO DAILY PRN PRN Reason: Constipation Last Admin: 10/10/23 20:56 Dose: 30 ml Metformin HCl (Metformin Hcl Er 750 Mg Tab.Er.24h) 750 mg PO BID [facility] 234 BEDS AT [facility] Last Admin: 10/11/23 08:45 Dose: 750 mg Metoprolol Succinate (Metoprolol Succinate Er 25 Mg Tab.Er.24h) 25 mg PO DAILY [facility] 234 BEDS AT [facility]; Protocol Last Admin: 10/11/23 08:44 Dose: 25 mg Non-Formulary Medication (Cyclosporine [Restasis]) 1 drop EYE-BOTH DAILY [facility] 234 BEDS AT [facility] Sitagliptin Phosphate (Sitagliptin Phosphate 100 Mg Tablet) 100 mg PO DAILY [facility] 234 BEDS AT [facility] Last Admin: 10/11/23 08:43 Dose: 100 mg Spironolactone (Spironolactone 25 Mg Tablet) 12.5 mg PO DAILY [facility]; Protocol Last Admin: 10/11/23 08:43 Dose: 12.5 mg Trazodone HCl (Trazodone Hcl 50 Mg Tablet) 50 mg PO BEDTIME MRX1 PRN PRN Reason: Insomnia Last Admin: 10/10/23 20:56 Dose: 50 mg Allergies Allergies Allergy/AdvReac Type Severity Reaction Status Date / Time codeine Allergy Unknown Verified 10/03/23 20:40 Assessment & Plan Assessment & Plan (1) MCI (mild cognitive impairment): Status: Acute Code(s): G31.84 - Mild cognitive impairment of uncertain or unknown etiology Plan Mrs. Jin is a 83 year-old woman who has been presenting with delusions of having an affair with former visiting nurse who was coming to their house. Pt reports hearing people walking, mumbles. She has not seen this woman but is sure that she has moved in to their house and leaves every day at around 3am. She has called the police, which has not found anyone other than her and her at night. However, this has not been reassuring but instead pt insists this woman is fast and clever. No prior history of psychosis or delusions. Pt does NOT present as delirious either. 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 I discuss with patient work up for dementia and other cognitive impairments. She seems to show some degree of understanding and agreement to complete testing and is in agreement with admission. Her orientation is fairly intact. Her language seems to be preserved. Further testing will help elucidate if any other cognitive areas with impairment. B12 is low- may consider cyanocobalamine 1000mcg IM q weekly for 4 weeks, then oral. PLAN 1. Admit to S1, CV, 15 minutes checks 2. continue current medications. 3. obtain collateral information 4. aftercare planning. 5. Add Haldol 2 mg p.o. q.6 hours p.r.n. visual hallucinations. 6. Ativan was changed to p.r.n. over the weekend. 7. Occupational therapist did cognitive assessmen, she scored 70/30 on the [place] and 3.4 on the Pete test. 8. Start Aricept 5 mg p.o. q.h.s. on October 10. Family meeting pretty soon. Reason for continued inpatient stay Substantial Risk for: inability to function, rapid decompensation and med/psych decompensation Time Spent With Patient Time: Total time managing care of this patient today __20__ minutes.
[2023-10-11 20:00] VITALS: BP 104/52; PULSE 68; RESP 18; TEMP 36.1; O2SAT 98
[2023-10-11 21:15] LABS: Glucose, Whole Blood 118 mg/dL (60-115)
[2023-10-11] MEDS: traZODone HCL 50 MG TABLET PO (21:37)
[2023-10-11] MEDS: Donepezil HCl 5 MG TABLET PO (21:38)
[2023-10-11] MEDS: polyethylene glycoL 3350 17 GM POWD.PACK PO (21:40)
[2023-10-12] MEDS: Levothyroxine Sodium 88 MCG TABLET PO (06:47)
[2023-10-12 06:49] LABS: Glucose, Whole Blood 92 mg/dL (60-115)
[2023-10-12 07:00] VITALS: BMI 27.9
[2023-10-12 08:00] VITALS: BP 124/60; PULSE 62; RESP 18; TEMP 36.4; O2SAT 95
[2023-10-12 09:59] VITALS: BP 124/60; PULSE 62
[2023-10-12] MEDS: SITagliptin Phosphate 100 MG TABLET PO (09:59)
[2023-10-12] MEDS: Atorvastatin Calcium 10 MG TABLET PO (09:59)
[2023-10-12] MEDS: metFORMIN HCl ER 750 MG TAB.ER.24H PO ×2 (09:59→21:05)
[2023-10-12] MEDS: Escitalopram Oxalate 10 MG TABLET PO (09:59)
[2023-10-12] MEDS: Metoprolol Succinate ER 25 MG TAB.ER.24H PO (09:59)
[2023-10-12] MEDS: allopurinoL 100 MG TABLET PO (09:59)
[2023-10-12 10:00] VITALS: BP 124/60
[2023-10-12] MEDS: Spironolactone 25 MG TABLET 12.5 MG PO (10:00)
[2023-10-12] MEDS: Acetaminophen 325 MG TABLET 650 MG PO (11:56)
--- NOTE | 2023-10-12 12:33 | HO.PSYCHPN ---
Subjective Subjective Date of Service: 10/12/23 Reason For Visit: SI Subjective Notes: Conditional Voluntary Interim History: The nursing staff reported that the patient has been pleasant, cooperative and compliant with treatment. She slept 8 hours. On interview, she reported that she is doing fine, we will have a family meeting to discuss diagnosis and treatment. She complained of slight over-sedation with Aricept 5. Mental Status Exam Mental Status Exam Patient Appearance: Appropriate Patient Orientation: Person and Situation Level of Consciousness: Awake and Appropriate Patient Behavior: Guarded and Passive Mood Description: Withdrawn Affect Description: Calm and Constricted Patient Cognition Impaired: Yes Ability to Follow Directions: Good Speech Pattern: Clear Hallucinations: None Delusions: Ideas of Reference Thought Process: Distracted and Slowed Thinking Thought Content: positive for [place] and positive for Poverty of Content Judgement: Poor Diagnostics Vital Signs (24Hr): Vital Signs - 24 hr 10/11/23 20:00 10/12/23 08:00 10/12/23 09:59 Temperature 97 F 97.6 F Pulse Rate 68 62 62 Respiratory Rate 18 18 Blood Pressure 104/52 L 124/60 124/60 Pulse Oximetry 98 95 Oxygen Delivery Method Room Air Room Air 10/12/23 10:00 Temperature Pulse Rate Respiratory Rate Blood Pressure 124/60 Pulse Oximetry Oxygen Delivery Method BMI result Body Mass Index 25.6 Labs 10/03/23 21:03 10/06/23 08:10 Labs: Laboratory Results - last 48 hr 10/10/23 10/11/23 10/11/23 20:31 06:38 21:08 POC Glucose 92 86 118 H 10/12/23 06:46 POC Glucose 92 Imaging Radiology Impressions: ITS Impressions Head CT 10/04/23 11:08 IMPRESSION: 1. 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 2. No intracranial hemorrhage or skull fracture is seen. 3. No evidence of space occupying lesion could be found. 4. The current plain CT scan of the brain shows no diagnostic evidence of acute cerebral infarction. Medications Medications Current Medications Acetaminophen (Acetaminophen 325 Mg Tablet) 650 mg PO Q6H PRN PRN Reason: Headache/Pain Mild Scale (1-3) Last Admin: 10/12/23 11:56 Dose: 650 mg Al Hydroxide/Mg Hydroxide (Magnesium Hydrox/Alum Hydrox 30 Ml Oral.Susp) 30 ml PO Q6H PRN PRN Reason: Heartburn/Nausea Allopurinol (Allopurinol 100 Mg Tablet) 100 mg PO DAILY [facility] Last Admin: 10/12/23 09:59 Dose: 100 mg Atorvastatin Calcium (Atorvastatin Calcium 10 Mg Tablet) 10 mg PO DAILY [facility] Last Admin: 10/12/23 09:59 Dose: 10 mg Cholestyramine Resin (Cholestyramine (With Sugar) 4 Gm Powd.Pack) 4 gm PO DAILY [facility] Last Admin: 10/12/23 10:06 Dose: Not Given Diphenoxylate HCl/Atropine (Diphenoxylate/Atrop 2.5/0.025 Tablet) 1 tab PO DAILY PRN PRN Reason: Diarrhea Donepezil HCl (Donepezil Hcl 5 Mg Tablet) 5 mg PO BEDTIME [facility] Last Admin: 10/11/23 21:38 Dose: 5 mg Escitalopram Oxalate (Escitalopram Oxalate 10 Mg Tablet) 10 mg PO DAILY [facility] Last Admin: 10/12/23 09:59 Dose: 10 mg Haloperidol (Haloperidol 1 Mg Tablet) 2 mg PO Q6H PRN PRN Reason: Psychosis Hydroxyzine HCl (Hydroxyzine Hcl 25 Mg Tablet) 25 mg PO Q6H PRN PRN Reason: Anxiety Levothyroxine Sodium (Levothyroxine Sodium 88 Mcg Tablet) 88 mcg PO DAILY@0630 [facility] Last Admin: 10/12/23 06:47 Dose: 88 mcg Lorazepam (Lorazepam 0.5 Mg Tablet) 0.5 mg PO DAILY PRN PRN Reason: anxiety Magnesium Hydroxide (Milk Of Magnesia 30 Ml Oral.Susp) 30 ml PO DAILY PRN PRN Reason: Constipation Last Admin: 10/10/23 20:56 Dose: 30 ml Metformin HCl (Metformin Hcl Er 750 Mg Tab.Er.24h) 750 mg PO BID [facility] Last Admin: 10/12/23 09:59 Dose: 750 mg Metoprolol Succinate (Metoprolol Succinate Er 25 Mg Tab.Er.24h) 25 mg PO DAILY [facility]; Protocol Last Admin: 10/12/23 09:59 Dose: 25 mg Pt Own (Cyclosporine [Restasis] 0.05 % Dropperette) 1 drop EYE-BOTH DAILY [facility] Polyethylene Glycol (Polyethylene Glycol 3350 17 Gm Powd.Pack) 17 gm PO DAILY PRN PRN Reason: Constipation Last Admin: 10/11/23 21:40 Dose: 17 gm Sitagliptin Phosphate (Sitagliptin Phosphate 100 Mg Tablet) 100 mg PO DAILY [facility] Last Admin: 10/12/23 09:59 Dose: 100 mg Spironolactone (Spironolactone 25 Mg Tablet) 12.5 mg PO DAILY [facility]; Protocol Last Admin: 10/12/23 10:00 Dose: 12.5 mg Trazodone HCl (Trazodone Hcl 50 Mg Tablet) 50 mg PO BEDTIME [facility] PRN PRN Reason: Insomnia Last Admin: 10/11/23 21:37 Dose: 50 mg Allergies Allergies Allergy/AdvReac Type Severity Reaction Status Date / Time codeine Allergy Unknown Verified 10/03/23 20:40 Assessment & Plan Assessment & Plan (1) MCI (mild cognitive impairment): Status: Acute Code(s): G31.84 - Mild cognitive impairment of uncertain or unknown etiology Plan Mrs. Jin is a 83 year-old woman who has been presenting with delusions of having an affair with former visiting nurse who was coming to their house. Pt reports hearing people walking, mumbles. She has not seen this woman but is sure that she has moved in to their house and leaves every day at around 3am. She has called the police, which has not found anyone other than her and her at night. However, this has not been reassuring but instead pt insists this woman is fast and clever. No prior history of psychosis or delusions. Pt does NOT present as delirious either. 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 I discuss with patient work up for dementia and other cognitive impairments. She seems to show some degree of understanding and agreement to complete testing and is in agreement with admission. Her orientation is fairly intact. Her language seems to be preserved. Further testing will help elucidate if any other cognitive areas with impairment. B12 is low- may consider cyanocobalamine 1000mcg IM q weekly for 4 weeks, then oral. PLAN 1. Admit to S1, CV, 15 minutes checks 2. continue current medications. 3. obtain collateral information 4. aftercare planning. 5. Add Haldol 2 mg p.o. q.6 hours p.r.n. visual hallucinations. 6. Ativan was changed to p.r.n. over the weekend. 7. Occupational therapist did cognitive assessmen, she scored 70/30 on the [place] and 3.4 on the [place] test. 8. Start Aricept 5 mg p.o. q.h.s. on October 10. 9. Family meeting on October 11. Reason for continued inpatient stay Substantial Risk for: inability to function, rapid decompensation and med/psych decompensation Time Spent With Patient Time: Total time managing care of this patient today __20__ minutes.
[2023-10-12] MEDS: PT OWN (Cyclosporine [Restasis] 0.05 % Dropperette) 1 EACH EYE-BOTH ×3 (12:59→13:12)
[2023-10-12] MEDS: polyethylene glycoL 3350 17 GM POWD.PACK PO (13:48)
[2023-10-12 20:00] VITALS: BP 135/63; PULSE 61; RESP 16; TEMP 36.6; O2SAT 97
[2023-10-12 20:12] LABS: Glucose, Whole Blood 124 mg/dL (60-115)
[2023-10-12] MEDS: traZODone HCL 50 MG TABLET PO (21:05)
[2023-10-12] MEDS: Donepezil HCl 5 MG TABLET PO (21:05)
[2023-10-13] MEDS: Levothyroxine Sodium 88 MCG TABLET PO (06:29)
[2023-10-13 06:37] LABS: Glucose, Whole Blood 89 mg/dL (60-115)
[2023-10-13 08:00] VITALS: BP 147/60; PULSE 62; RESP 16; TEMP 36.2; O2SAT 96
[2023-10-13] MEDS: Metoprolol Succinate ER 25 MG TAB.ER.24H PO (08:04)
[2023-10-13] MEDS: Spironolactone 25 MG TABLET 12.5 MG PO (08:04)
[2023-10-13] MEDS: allopurinoL 100 MG TABLET PO (08:04)
[2023-10-13] MEDS: metFORMIN HCl ER 750 MG TAB.ER.24H PO ×2 (08:04→20:09)
[2023-10-13] MEDS: Escitalopram Oxalate 10 MG TABLET PO (08:04)
[2023-10-13] MEDS: SITagliptin Phosphate 100 MG TABLET PO (08:04)
[2023-10-13] MEDS: Atorvastatin Calcium 10 MG TABLET PO (08:05)
[2023-10-13] MEDS: PT OWN (Cyclosporine [Restasis] 0.05 % Dropperette) 1 EACH EYE-BOTH (08:09)
[2023-10-13 08:22] LABS: Creatinine Clr Calc Pharmacy 40.6; Estimated Glomerular Filt Rate 50
--- NOTE | 2023-10-13 13:29 | P.PNPSI_ITS ---
Subjective Subjective Date of Service: 10/13/23 Reason For Visit: SI Subjective Notes: Conditional Voluntary Interim History: The nursing staff reported the patient had been socializing with peers visible in the unit. No acute changes on her mental status. On interview, she reported mild sedation after receiving Aricept in the evening. We will keep on the same dose over the weekend. We will have a family meeting next Monday with her daughter who is asking for more details about the diagnosis of dementia. Mental Status Exam Mental Status Exam Patient Appearance: Appropriate Patient Orientation: Person and Situation Level of Consciousness: Awake and Appropriate Patient Behavior: Guarded and Passive Mood Description: Withdrawn Affect Description: Constricted Patient Cognition Impaired: Yes Ability to Follow Directions: Good Speech Pattern: Clear Hallucinations: None Delusions: Not Present Thought Process: Distracted and Slowed Thinking Thought Content: positive for [place] and positive for Poverty of Content Judgement: Fair Diagnostics Vital Signs (24Hr): Vital Signs - 24 hr 10/12/23 20:00 10/13/23 08:00 Temperature 98 F 97.2 F Pulse Rate 61 62 Respiratory Rate 16 16 Blood Pressure 135/63 147/60 H Pulse Oximetry 97 96 Oxygen Delivery Method Room Air Room Air BMI result Body Mass Index 27.9 Labs 10/03/23 21:03 10/13/23 07:59 Labs: Laboratory Results - last 48 hr 10/11/23 10/12/23 10/12/23 21:08 06:46 20:08 Creatinine Estim Creat Clear Calc Estimated GFR POC Glucose 118 H 92 124 H 10/13/23 10/13/23 06:28 07:59 Creatinine 1.05 Estim Creat Clear Calc 40.6 Estimated GFR 50 POC Glucose 89 Imaging Radiology Impressions: ITS Impressions Head CT 10/04/23 11:08 IMPRESSION: 1. 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 2. No intracranial hemorrhage or skull fracture is seen. 3. No evidence of space occupying lesion could be found. 4. The current plain CT scan of the brain shows no diagnostic evidence of acute cerebral infarction. Medications Medications Current Medications Acetaminophen (Acetaminophen 325 Mg Tablet) 650 mg PO Q6H PRN PRN Reason: Headache/Pain Mild Scale (1-3) Last Admin: 10/12/23 11:56 Dose: 650 mg Al Hydroxide/Mg Hydroxide (Magnesium Hydrox/Alum Hydrox 30 Ml Oral.Susp) 30 ml PO Q6H PRN PRN Reason: Heartburn/Nausea Allopurinol (Allopurinol 100 Mg Tablet) 100 mg PO DAILY [facility] Last Admin: 10/13/23 08:04 Dose: 100 mg Atorvastatin Calcium (Atorvastatin Calcium 10 Mg Tablet) 10 mg PO DAILY [facility] Last Admin: 10/13/23 08:05 Dose: 10 mg Cholestyramine Resin (Cholestyramine (With Sugar) 4 Gm Powd.Pack) 4 gm PO DAILY [facility] Last Admin: 10/13/23 08:15 Dose: Not Given Diphenoxylate HCl/Atropine (Diphenoxylate/Atrop 2.5/0.025 Tablet) 1 tab PO DAILY PRN PRN Reason: Diarrhea Donepezil HCl (Donepezil Hcl 5 Mg Tablet) 5 mg PO BEDTIME [facility] Last Admin: 10/12/23 21:05 Dose: 5 mg Escitalopram Oxalate (Escitalopram Oxalate 10 Mg Tablet) 10 mg PO DAILY [facility] Last Admin: 10/13/23 08:04 Dose: 10 mg Haloperidol (Haloperidol 1 Mg Tablet) 2 mg PO Q6H PRN PRN Reason: Psychosis Hydroxyzine HCl (Hydroxyzine Hcl 25 Mg Tablet) 25 mg PO Q6H PRN PRN Reason: Anxiety Levothyroxine Sodium (Levothyroxine Sodium 88 Mcg Tablet) 88 mcg PO DAILY@0630 [facility] Last Admin: 10/13/23 06:29 Dose: 88 mcg Lorazepam (Lorazepam 0.5 Mg Tablet) 0.5 mg PO DAILY PRN PRN Reason: anxiety Magnesium Hydroxide (Milk Of Magnesia 30 Ml Oral.Susp) 30 ml PO DAILY PRN PRN Reason: Constipation Last Admin: 10/10/23 20:56 Dose: 30 ml Metformin HCl (Metformin Hcl Er 750 Mg Tab.Er.24h) 750 mg PO BID [facility] Last Admin: 10/13/23 08:04 Dose: 750 mg Metoprolol Succinate (Metoprolol Succinate Er 25 Mg Tab.Er.24h) 25 mg PO DAILY [facility]; Protocol Last Admin: 10/13/23 08:04 Dose: 25 mg Pt Own (Cyclosporine [Restasis] 0.05 % Dropperette) 1 drop EYE-BOTH DAILY [facility] Last Admin: 10/13/23 08:19 Dose: Not Given Polyethylene Glycol (Polyethylene Glycol 3350 17 Gm Powd.Pack) 17 gm PO DAILY PRN PRN Reason: Constipation Last Admin: 10/12/23 13:48 Dose: 17 gm Sitagliptin Phosphate (Sitagliptin Phosphate 100 Mg Tablet) 100 mg PO DAILY [facility] Last Admin: 10/13/23 08:04 Dose: 100 mg Spironolactone (Spironolactone 25 Mg Tablet) 12.5 mg PO DAILY [facility]; Protocol Last Admin: 10/13/23 08:04 Dose: 12.5 mg Trazodone HCl (Trazodone Hcl 50 Mg Tablet) 50 mg PO BEDTIME MRX1 PRN PRN Reason: Insomnia Last Admin: 10/12/23 21:05 Dose: 50 mg Allergies Allergies Allergy/AdvReac Type Severity Reaction Status Date / Time codeine Allergy Unknown Verified 10/03/23 20:40 Assessment & Plan Assessment & Plan (1) MCI (mild cognitive impairment): Status: Acute Code(s): G31.84 - Mild cognitive impairment of uncertain or unknown etiology Plan Mrs. Jin is a 83 year-old woman who has been presenting with delusions of having an affair with former visiting nurse who was coming to their house. Pt reports hearing people walking, mumbles. She has not seen this woman but is sure that she has moved in to their house and leaves every day at around 3am. She has called the police, which has not found anyone other than her and her at night. However, this has not been reassuring but instead pt insists this woman is fast and clever. No prior history of psychosis or delusions. Pt does NOT present as delirious either. 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 I discuss with patient work up for dementia and other cognitive impairments. She seems to show some degree of understanding and agreement to complete testing and is in agreement with admission. Her orientation is fairly intact. Her language seems to be preserved. Further testing will help elucidate if any other cognitive areas with impairment. B12 is low- may consider cyanocobalamine 1000mcg IM q weekly for 4 weeks, then oral. PLAN 1. Admit to S1, CV, 15 minutes checks 2. continue current medications. 3. obtain collateral information 4. aftercare planning. 5. Add Haldol 2 mg p.o. q.6 hours p.r.n. visual hallucinations. 6. Ativan was changed to p.r.n. over the weekend. 7. Occupational therapist did cognitive assessmen, she scored 70/30 on the [place] and 3.4 on the [place] test. 8. Start Aricept 5 mg p.o. q.h.s. on October 10. 9. Family meeting on October 11. Reason for continued inpatient stay Substantial Risk for: inability to function, rapid decompensation and med/psych decompensation Time Spent With Patient Time: Total time managing care of this patient today ___20_ minutes.
[2023-10-13 19:23] VITALS: BP 128/53; PULSE 56; TEMP 36.9; O2SAT 98
[2023-10-13] MEDS: traZODone HCL 50 MG TABLET PO (20:09)
[2023-10-13] MEDS: Donepezil HCl 5 MG TABLET PO (20:09)
[2023-10-13] MEDS: polyethylene glycoL 3350 17 GM POWD.PACK PO (20:10)
[2023-10-13 20:16] LABS: Glucose, Whole Blood 113 mg/dL (60-115)
[2023-10-13] MEDS: Hydrocortisone 2.5 % Rectal Cr 30 GM TUBE 1 APPL PR (21:37)
[2023-10-14] MEDS: Levothyroxine Sodium 88 MCG TABLET PO (06:10)
[2023-10-14 06:47] LABS: Glucose, Whole Blood 93 mg/dL (60-115)
[2023-10-14 09:13] VITALS: BP 120/55; PULSE 62; RESP 18; TEMP 36.1; O2SAT 99
[2023-10-14 09:18] VITALS: BP 120/55
[2023-10-14] MEDS: Spironolactone 25 MG TABLET 12.5 MG PO (09:18)
[2023-10-14] MEDS: Escitalopram Oxalate 10 MG TABLET PO (09:19)
[2023-10-14] MEDS: metFORMIN HCl ER 750 MG TAB.ER.24H PO ×2 (09:19→20:48)
[2023-10-14] MEDS: SITagliptin Phosphate 100 MG TABLET PO (09:19)
[2023-10-14 09:20] VITALS: BP 120/55; PULSE 62
[2023-10-14] MEDS: Atorvastatin Calcium 10 MG TABLET PO (09:20)
[2023-10-14] MEDS: allopurinoL 100 MG TABLET PO (09:20)
[2023-10-14] MEDS: Metoprolol Succinate ER 25 MG TAB.ER.24H PO (09:20)
[2023-10-14] MEDS: PT OWN (Cyclosporine [Restasis] 0.05 % Dropperette) 1 EACH EYE-BOTH (09:22)
--- NOTE | 2023-10-14 14:29 | HO.PSYCHPN ---
Subjective Subjective Date of Service: 10/14/23 Reason For Visit: SI Subjective Notes: Conditional Voluntary Healthcare Proxy: Yes Medical Problems Affecting Mental Status: Yes Interim History: 83 yo with hx shogren's and depression, maybe having some cognitive decline- reports depression around shogren's dx saw dr fitzgerald outpatient and now feels better with psych medication- co constipation- Daughter wondering about dementia Medication Compliance: Yes Side effects from medications: No Attending Groups: Intermittent Review of Systems Acute medical concerns: Yes shogren's ?progressing memory impairment Medical Review of Systems: unchanged Mental Status Exam Mental Status Exam Patient Appearance: Appropriate Patient Orientation: Person, Place and Situation Level of Consciousness: Awake and Appropriate Patient Behavior: Dependent and Good Eye Contact Mood Description: Calm and Happy (has just spent 1 hr with daugther) Affect Description: Calm Patient Cognition Impaired: Yes Ability to Follow Directions: Fair Speech Pattern: Clear Hallucinations: None Delusions: Paranoid Ideation (possible having affair with electrical and radio mock up mechanic reportedly) Thought Process: Intact Thought Content: positive for [place] Oriented Judgement: Fair Diagnostics Vital Signs (24Hr): Vital Signs - 24 hr 10/13/23 19:23 10/14/23 09:13 10/14/23 09:18 Temperature 98.4 F 96.9 F Pulse Rate 56 62 Respiratory Rate 18 Blood Pressure 128/53 L 120/55 L 120/55 L Pulse Oximetry 98 99 Oxygen Delivery Method Room Air Room Air 10/14/23 09:20 Temperature Pulse Rate 62 Respiratory Rate Blood Pressure 120/55 L Pulse Oximetry Oxygen Delivery Method BMI result Body Mass Index 27.9 Labs 10/03/23 21:03 10/13/23 07:59 Labs: Laboratory Results - last 48 hr 10/12/23 10/13/23 10/13/23 20:08 06:28 07:59 Creatinine 1.05 Estim Creat Clear Calc 40.6 Estimated GFR 50 POC Glucose 124 H 89 10/13/23 10/14/23 20:08 06:31 Creatinine Estim Creat Clear Calc Estimated GFR POC Glucose 113 93 Imaging Radiology Impressions: ITS Impressions Head CT 10/04/23 11:08 IMPRESSION: 1. 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 2. No intracranial hemorrhage or skull fracture is seen. 3. No evidence of space occupying lesion could be found. 4. The current plain CT scan of the brain shows no diagnostic evidence of acute cerebral infarction. Medications Medications Current Medications Acetaminophen (Acetaminophen 325 Mg Tablet) 650 mg PO Q6H PRN PRN Reason: Headache/Pain Mild Scale (1-3) Last Admin: 10/12/23 11:56 Dose: 650 mg Al Hydroxide/Mg Hydroxide (Magnesium Hydrox/Alum Hydrox 30 Ml Oral.Susp) 30 ml PO Q6H PRN PRN Reason: Heartburn/Nausea Allopurinol (Allopurinol 100 Mg Tablet) 100 mg PO DAILY [facility] Last Admin: 10/14/23 09:20 Dose: 100 mg Atorvastatin Calcium (Atorvastatin Calcium 10 Mg Tablet) 10 mg PO DAILY [facility] Last Admin: 10/14/23 09:20 Dose: 10 mg Cholestyramine Resin (Cholestyramine (With Sugar) 4 Gm Powd.Pack) 4 gm PO DAILY [facility] Last Admin: 10/14/23 14:23 Dose: Not Given Diphenoxylate HCl/Atropine (Diphenoxylate/Atrop 2.5/0.025 Tablet) 1 tab PO DAILY PRN PRN Reason: Diarrhea Donepezil HCl (Donepezil Hcl 5 Mg Tablet) 5 mg PO BEDTIME [facility] Last Admin: 10/13/23 20:09 Dose: 5 mg Escitalopram Oxalate (Escitalopram Oxalate 10 Mg Tablet) 10 mg PO DAILY [facility] Last Admin: 10/14/23 09:19 Dose: 10 mg Haloperidol (Haloperidol 1 Mg Tablet) 2 mg PO Q6H PRN PRN Reason: Psychosis Hydrocortisone (Hydrocortisone 2.5 % Rectal Cr 30 Gm Tube) 1 appl [place] DAILY PRN PRN Reason: Hemorrhoids Last Admin: 10/13/23 21:37 Dose: 1 appl Hydroxyzine HCl (Hydroxyzine Hcl 25 Mg Tablet) 25 mg PO Q6H PRN PRN Reason: Anxiety Levothyroxine Sodium (Levothyroxine Sodium 88 Mcg Tablet) 88 mcg PO DAILY@0630 [facility] Last Admin: 10/14/23 06:10 Dose: 88 mcg Lorazepam (Lorazepam 0.5 Mg Tablet) 0.5 mg PO DAILY PRN PRN Reason: anxiety Magnesium Hydroxide (Milk Of Magnesia 30 Ml Oral.Susp) 30 ml PO DAILY PRN PRN Reason: Constipation Last Admin: 10/10/23 20:56 Dose: 30 ml Metformin HCl (Metformin Hcl Er 750 Mg Tab.Er.24h) 750 mg PO BID [facility] Last Admin: 10/14/23 09:19 Dose: 750 mg Metoprolol Succinate (Metoprolol Succinate Er 25 Mg Tab.Er.24h) 25 mg PO DAILY [facility]; Protocol Last Admin: 10/14/23 09:20 Dose: 25 mg Pt Own (Cyclosporine [Restasis] 0.05 % Dropperette) 1 drop EYE-BOTH DAILY [facility] Last Admin: 10/14/23 09:22 Dose: 1 drop Polyethylene Glycol (Polyethylene Glycol 3350 17 Gm Powd.Pack) 17 gm PO DAILY PRN PRN Reason: Constipation Last Admin: 10/13/23 20:10 Dose: 17 gm Sitagliptin Phosphate (Sitagliptin Phosphate 50 Mg Tablet) 50 mg PO DAILY [facility] Spironolactone (Spironolactone 25 Mg Tablet) 12.5 mg PO DAILY [facility]; Protocol Last Admin: 10/14/23 09:18 Dose: 12.5 mg Trazodone HCl (Trazodone Hcl 50 Mg Tablet) 50 mg PO BEDTIME MRX1 PRN PRN Reason: Insomnia Last Admin: 10/13/23 20:09 Dose: 50 mg Allergies Allergies Allergy/AdvReac Type Severity Reaction Status Date / Time codeine Allergy Unknown Verified 10/03/23 20:40 Assessment & Plan Assessment & Plan (1) MCI (mild cognitive impairment): Status: Acute Code(s): G31.84 - Mild cognitive impairment of uncertain or unknown etiology Plan Mrs. Jin is a 83 year-old woman who has been presenting with delusions of having an affair with former visiting nurse who was coming to their house. Pt reports hearing people walking, mumbles. She has not seen this woman but is sure that she has moved in to their house and leaves every day at around 3am. She has called the police, which has not found anyone other than her and her at night. However, this has not been reassuring but instead pt insists this woman is fast and clever. No prior history of psychosis or delusions. Pt does NOT present as delirious either. 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 I discuss with patient work up for dementia and other cognitive impairments. She seems to show some degree of understanding and agreement to complete testing and is in agreement with admission. Her orientation is fairly intact. Her language seems to be preserved. Further testing will help elucidate if any other cognitive areas with impairment. B12 is low- may consider cyanocobalamine 1000mcg IM q weekly for 4 weeks, then oral. PLAN 1. Admit to S1, CV, 15 minutes checks 2. continue current medications. 3. obtain collateral information 4. aftercare planning. 5. Add Haldol 2 mg p.o. q.6 hours p.r.n. visual hallucinations. 6. Ativan was changed to p.r.n. over the weekend. 7. Occupational therapist did cognitive assessmen, she scored 70/30 on the [place] and 3.4 on the [place] test. 8. Start Aricept 5 mg p.o. q.h.s. on October 10. 9. Family meeting on October 11. 10/14/23 I believe daughter is planning on coming in 10/15 for meeting- [facility] Patient educated on: therapeutic strategies Informed Consent: further education needed Reason for continued inpatient stay Substantial Risk for: rapid decompensation and med/psych decompensation Time Spent With Patient Time: Total time managing care of this patient today ____ minutes.
[2023-10-14 20:00] VITALS: BP 124/60; PULSE 72; RESP 16; TEMP 36.1; O2SAT 96
[2023-10-14] MEDS: traZODone HCL 50 MG TABLET PO (20:47)
[2023-10-14] MEDS: Acetaminophen 325 MG TABLET 650 MG PO (20:48)
[2023-10-14] MEDS: Donepezil HCl 5 MG TABLET PO (20:48)
[2023-10-14 21:04] LABS: Glucose, Whole Blood 129 mg/dL (60-115)
[2023-10-15] MEDS: Levothyroxine Sodium 88 MCG TABLET PO (05:50)
[2023-10-15 06:17] LABS: Glucose, Whole Blood 103 mg/dL (60-115)
[2023-10-15 09:00] VITALS: BP 107/51; PULSE 56; RESP 16; TEMP 36.1; O2SAT 95
[2023-10-15 09:09] VITALS: BP 107/51
[2023-10-15] MEDS: Spironolactone 25 MG TABLET 12.5 MG PO (09:09)
[2023-10-15] MEDS: metFORMIN HCl ER 750 MG TAB.ER.24H PO ×2 (09:10→20:30)
[2023-10-15] MEDS: SITagliptin Phosphate 50 MG TABLET PO (09:10)
[2023-10-15 09:11] VITALS: BP 107/51; PULSE 56
[2023-10-15] MEDS: Atorvastatin Calcium 10 MG TABLET PO (09:11)
[2023-10-15] MEDS: allopurinoL 100 MG TABLET PO (09:11)
[2023-10-15] MEDS: Cholecalciferol (Vitamin D3) 25 MCG TABLET PO (09:11)
[2023-10-15] MEDS: Metoprolol Succinate ER 25 MG TAB.ER.24H PO (09:11)
[2023-10-15] MEDS: Escitalopram Oxalate 10 MG TABLET PO (09:11)
[2023-10-15] MEDS: PT OWN (Cyclosporine [Restasis] 0.05 % Dropperette) 1 EACH EYE-BOTH (09:21)
--- NOTE | 2023-10-15 13:57 | P.PNPSI_ITS ---
Subjective Subjective Date of Service: 10/15/23 Reason For Visit: SI Subjective Notes: Conditional Voluntary Interim History: 83 yo with cog decline and hx dep/anxiety - doing ok today- asked for lasix for leg edema but reminded pt might make her more dry re shogrens- She denies si/hi/. Sleep ok apt ok - Family meeting with dr and pt's children tomorrow- Likely to discuss placement issues and cog decline, though I doubt pt aware. Medication Compliance: Yes Side effects from medications: Yes (?worsening dryness) Attending Groups: Intermittent Review of Systems Acute medical concerns: No Medical Review of Systems: changed Review of Systems: co diarrhea today- but was co constipation yesterday and got stool softner/? mom yesterday - Mental Status Exam Mental Status Exam Narrative: sitting up in bed eating lunch- says it is not what she ordered but is enjoying it - Patient Appearance: Well Grooomed and Appropriate Patient Orientation: Person, Place, Time and Situation Level of Consciousness: Awake Patient Behavior: Appropriate, Cooperative and Good Eye Contact Mood Description: Calm Affect Description: Appropriate Patient Cognition Impaired: Yes Ability to Follow Directions: Good Speech Pattern: Clear Hallucinations: None Delusions: Paranoid Ideation (?reported on admission that she thinks having affair with retail loan originator) Thought Process: Intact Thought Content: positive for [place] Oriented Judgement: Fair Diagnostics Vital Signs (24Hr): Vital Signs - 24 hr 10/14/23 20:00 10/15/23 09:00 10/15/23 09:09 Temperature 97 F 96.9 F Pulse Rate 72 56 Respiratory Rate 16 16 Blood Pressure 124/60 107/51 L 107/51 L Pulse Oximetry 96 95 Oxygen Delivery Method Room Air Room Air 10/15/23 09:11 Temperature Pulse Rate 56 Respiratory Rate Blood Pressure 107/51 L Pulse Oximetry Oxygen Delivery Method BMI result Body Mass Index 27.9 Labs 10/03/23 21:03 10/13/23 07:59 Labs: Laboratory Results - last 48 hr 10/13/23 10/14/23 10/14/23 20:08 06:31 20:46 POC Glucose 113 93 129 H 10/15/23 06:05 POC Glucose 103 Imaging Radiology Impressions: ITS Impressions Head CT 10/04/23 11:08 IMPRESSION: 1. 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 2. No intracranial hemorrhage or skull fracture is seen. 3. No evidence of space occupying lesion could be found. 4. The current plain CT scan of the brain shows no diagnostic evidence of acute cerebral infarction. Medications Medications Current Medications Acetaminophen (Acetaminophen 325 Mg Tablet) 650 mg PO Q6H PRN PRN Reason: Headache/Pain Mild Scale (1-3) Last Admin: 10/14/23 20:48 Dose: 650 mg Al Hydroxide/Mg Hydroxide (Magnesium Hydrox/Alum Hydrox 30 Ml Oral.Susp) 30 ml PO Q6H PRN PRN Reason: Heartburn/Nausea Allopurinol (Allopurinol 100 Mg Tablet) 100 mg PO DAILY COUNT INCLUDES [facility] Last Admin: 10/15/23 09:11 Dose: 100 mg Atorvastatin Calcium (Atorvastatin Calcium 10 Mg Tablet) 10 mg PO DAILY COUNT INCLUDES [facility] Last Admin: 10/15/23 09:11 Dose: 10 mg Benzocaine (Throat Lozenge, Medicated Lozenge) 1 lozenge MUCOUS MEM Q2H PRN PRN Reason: Sore Throat Cholestyramine Resin (Cholestyramine (With Sugar) 4 Gm Powd.Pack) 4 gm PO DAILY COUNT [facility]CLUDES [facility] Last Admin: 10/15/23 09:20 Dose: Not Given Diphenoxylate HCl/Atropine (Diphenoxylate/Atrop 2.5/0.025 Tablet) 1 tab PO DAILY PRN PRN Reason: Diarrhea Docusate Sodium (Docusate Sodium 100 Mg Capsule) 100 mg PO BID PRN PRN Reason: Constipation Donepezil HCl (Donepezil Hcl 5 Mg Tablet) 5 mg PO BEDTIME COUNT [facility]CLUDES [facility] Last Admin: 10/14/23 20:48 Dose: 5 mg Escitalopram Oxalate (Escitalopram Oxalate 10 Mg Tablet) 10 mg PO DAILY COUNT [facility]CLUDES [facility] Last Admin: 10/15/23 09:11 Dose: 10 mg Guaifenesin (Guaifenesin 100 Mg/5 Ml Liquid) 5 ml PO Q4H PRN PRN Reason: Cough Haloperidol (Haloperidol 1 Mg Tablet) 2 mg PO Q6H PRN PRN Reason: Psychosis Hydrocortisone (Hydrocortisone 2.5 % Rectal Cr 30 Gm Tube) 1 appl [place] DAILY PRN PRN Reason: Hemorrhoids Last Admin: 10/13/23 21:37 Dose: 1 appl Hydroxyzine HCl (Hydroxyzine Hcl 25 Mg Tablet) 25 mg PO Q6H PRN PRN Reason: Anxiety Levothyroxine Sodium (Levothyroxine Sodium 88 Mcg Tablet) 88 mcg PO DAILY@0600 COUNT INCLUDES [facility] Lorazepam (Lorazepam 0.5 Mg Tablet) 0.5 mg PO DAILY PRN PRN Reason: anxiety Magnesium Hydroxide (Milk Of Magnesia 30 Ml Oral.Susp) 30 ml PO DAILY PRN PRN Reason: Constipation Last Admin: 10/10/23 20:56 Dose: 30 ml Metformin HCl (Metformin Hcl Er 750 Mg Tab.Er.24h) 750 mg PO BID COUNT [facility]CLUDES [facility] Last Admin: 10/15/23 09:10 Dose: 750 mg Metoprolol Succinate (Metoprolol Succinate Er 25 Mg Tab.Er.24h) 25 mg PO DAILY [facility]CLUDES [facility]; Protocol Last Admin: 10/15/23 09:11 Dose: 25 mg Pt Own (Cyclosporine [Restasis] 0.05 % Dropperette) 1 drop EYE-BOTH DAILY COUNT INCLUDES THE [facility] Last Admin: 10/15/23 09:21 Dose: 1 drop Polyethylene Glycol (Polyethylene Glycol 3350 17 Gm Powd.Pack) 17 gm PO DAILY PRN PRN Reason: Constipation Last Admin: 10/13/23 20:10 Dose: 17 gm Sitagliptin Phosphate (Sitagliptin Phosphate 50 Mg Tablet) 50 mg PO DAILY COUNT [facility]CLUDES [facility] Last Admin: 10/15/23 09:10 Dose: 50 mg Spironolactone (Spironolactone 25 Mg Tablet) 12.5 mg PO DAILY COUNT [facility]CLUDES [facility]; Protocol Last Admin: 10/15/23 09:09 Dose: 12.5 mg Trazodone HCl (Trazodone Hcl 50 Mg Tablet) 50 mg PO BEDTIME MRX1 PRN PRN Reason: Insomnia Last Admin: 10/14/23 20:47 Dose: 50 mg Vitamin D (Cholecalciferol (Vitamin D3) 25 Mcg Tablet) 25 mcg PO DAILY COUNT [facility]CLUDES [facility] Last Admin: 10/15/23 09:11 Dose: 25 mcg Allergies Allergies Allergy/AdvReac Type Severity Reaction Status Date / Time codeine Allergy Unknown Verified 10/03/23 20:40 Assessment & Plan Assessment & Plan (1) MCI (mild cognitive impairment): Status: Acute Code(s): G31.84 - Mild cognitive impairment of uncertain or unknown etiology Plan Mrs. Jin is a 83 year-old woman who has been presenting with delusions of having an affair with former visiting nurse who was coming to their house. Pt reports hearing people walking, mumbles. She has not seen this woman but is sure that she has moved in to their house and leaves every day at around 3am. She has called the police, which has not found anyone other than her and her at night. However, this has not been reassuring but instead pt insists this woman is fast and clever. No prior history of psychosis or delusions. Pt does NOT present as delirious either. 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 I discuss with patient work up for dementia and other cognitive impairments. She seems to show some degree of understanding and agreement to complete testing and is in agreement with admission. Her orientation is fairly intact. Her language seems to be preserved. Further testing will help elucidate if any other cognitive areas with impairment. B12 is low- may consider cyanocobalamine 1000mcg IM q weekly for 4 weeks, then oral. PLAN 1. Admit to S1, CV, 15 minutes checks 2. continue current medications. 3. obtain collateral information 4. aftercare planning. 5. Add Haldol 2 mg p.o. q.6 hours p.r.n. visual hallucinations. 6. Ativan was changed to p.r.n. over the weekend. 7. Occupational therapist did cognitive assessmen, she scored 70/30 on the [place] and 3.4 on the [place] test. 8. Start Aricept 5 mg p.o. q.h.s. on October 10. 9. Family meeting on October 11. 10/14/23 I believe daughter is planning on coming in 10/15 for meeting- [facility] Patient educated on: other Informed Consent: understands Reason for continued inpatient stay Substantial Risk for: rapid decompensation and med/psych decompensation Time Spent With Patient Time: Total time managing care of this patient today ____ minutes.
[2023-10-15] MEDS: Acetaminophen 325 MG TABLET 650 MG PO (16:35)
[2023-10-15] MEDS: guaiFENesin 100 MG/5 ML LIQUID PO (16:36)
[2023-10-15] MEDS: Throat Lozenge, Medicated LOZENGE 1 LOZENGE MUCOUS MEM (16:36)
[2023-10-15 20:00] VITALS: BP 129/62; PULSE 62; RESP 20; TEMP 36.6; O2SAT 98
[2023-10-15 20:19] LABS: Glucose, Whole Blood 152 mg/dL (60-115)
[2023-10-15] MEDS: Donepezil HCl 5 MG TABLET PO (20:30)
[2023-10-15] MEDS: traZODone HCL 50 MG TABLET PO (20:30)
[2023-10-16] MEDS: Levothyroxine Sodium 88 MCG TABLET PO (06:19)
[2023-10-16 06:39] LABS: Glucose, Whole Blood 91 mg/dL (60-115)
[2023-10-16 07:56] VITALS: BP 128/60; PULSE 54; RESP 17; TEMP 36.1; O2SAT 99
[2023-10-16] MEDS: allopurinoL 100 MG TABLET PO (07:59)
[2023-10-16] MEDS: Spironolactone 25 MG TABLET 12.5 MG PO (07:59)
[2023-10-16] MEDS: Atorvastatin Calcium 10 MG TABLET PO (07:59)
[2023-10-16] MEDS: Escitalopram Oxalate 10 MG TABLET PO (07:59)
[2023-10-16] MEDS: Cholecalciferol (Vitamin D3) 25 MCG TABLET PO (07:59)
[2023-10-16] MEDS: SITagliptin Phosphate 50 MG TABLET PO (07:59)
[2023-10-16] MEDS: PT OWN (Cyclosporine [Restasis] 0.05 % Dropperette) 1 EACH EYE-BOTH (07:59)
[2023-10-16] MEDS: Metoprolol Succinate ER 25 MG TAB.ER.24H PO (07:59)
[2023-10-16] MEDS: metFORMIN HCl ER 750 MG TAB.ER.24H PO ×2 (08:00→20:34)
[2023-10-16] MEDS: Acetaminophen 325 MG TABLET 650 MG PO (08:30)
--- NOTE | 2023-10-16 14:34 | P.PNPSI_ITS ---
Subjective Subjective Date of Service: 10/16/23 Reason For Visit: SI Subjective Notes: Conditional Voluntary Interim History: The nursing staff reported that she had been coughing and she had received Robitussin with for improvement. She had diarrhea yesterday but slept well. Today she reported that she was over-sedated with Aricept so we are going to keep it on 5 mg and we are going to start Namenda. We had a meeting with her daughter and explained the diagnosis and the methodology that we did to get into this diagnosis. Apparently she had been having chronic cognitive impairment for several years. Mental Status Exam Mental Status Exam Patient Appearance: Well Grooomed and Appropriate Patient Orientation: Person and Situation Level of Consciousness: Awake Patient Behavior: Guarded and Passive Mood Description: Withdrawn Affect Description: Constricted Patient Cognition Impaired: Yes Ability to Follow Directions: Good Speech Pattern: Clear Hallucinations: None Delusions: Not Present Thought Process: Distracted and Slowed Thinking Thought Content: positive for [place] and positive for Poverty of Content Judgement: Fair Diagnostics Vital Signs (24Hr): Vital Signs - 24 hr 10/15/23 20:00 10/16/23 07:56 Temperature 97.9 F 97.0 F Pulse Rate 62 54 Respiratory Rate 20 17 Blood Pressure 129/62 128/60 Pulse Oximetry 98 99 Oxygen Delivery Method Room Air Room Air BMI result Body Mass Index 27.9 Labs 10/03/23 21:03 10/13/23 07:59 Labs: Laboratory Results - last 48 hr 10/14/23 10/15/23 10/15/23 20:46 06:05 20:02 POC Glucose 129 H 103 152 H 10/16/23 06:30 POC Glucose 91 Imaging Radiology Impressions: ITS Impressions Head CT 10/04/23 11:08 IMPRESSION: 1. 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 2. No intracranial hemorrhage or skull fracture is seen. 3. No evidence of space occupying lesion could be found. 4. The current plain CT scan of the brain shows no diagnostic evidence of acute cerebral infarction. Medications Medications Current Medications Acetaminophen (Acetaminophen 325 Mg Tablet) 650 mg PO Q6H PRN PRN Reason: Headache/Pain Mild Scale (1-3) Last Admin: 10/16/23 08:30 Dose: 650 mg Al Hydroxide/Mg Hydroxide (Magnesium Hydrox/Alum Hydrox 30 Ml Oral.Susp) 30 ml PO Q6H PRN PRN Reason: Heartburn/Nausea Allopurinol (Allopurinol 100 Mg Tablet) 100 mg PO DAILY [facility] Last Admin: 10/16/23 07:59 Dose: 100 mg Atorvastatin Calcium (Atorvastatin Calcium 10 Mg Tablet) 10 mg PO DAILY [facility] Last Admin: 10/16/23 07:59 Dose: 10 mg Benzocaine (Throat Lozenge, Medicated Lozenge) 1 lozenge MUCOUS MEM Q2H PRN PRN Reason: Sore Throat Last Admin: 10/15/23 16:36 Dose: 1 lozenge Cholestyramine Resin (Cholestyramine (With Sugar) 4 Gm Powd.Pack) 4 gm PO DAILY [facility] Last Admin: 10/16/23 08:02 Dose: Not Given Diphenoxylate HCl/Atropine (Diphenoxylate/Atrop 2.5/0.025 Tablet) 1 tab PO DAILY PRN PRN Reason: Diarrhea Docusate Sodium (Docusate Sodium 100 Mg Capsule) 100 mg PO BID PRN PRN Reason: Constipation Donepezil HCl (Donepezil Hcl 5 Mg Tablet) 5 mg PO BEDTIME [facility] Escitalopram Oxalate (Escitalopram Oxalate 10 Mg Tablet) 10 mg PO DAILY [facility] Last Admin: 10/16/23 07:59 Dose: 10 mg Guaifenesin (Guaifenesin 100 Mg/5 Ml Liquid) 5 ml PO Q4H PRN PRN Reason: Cough Last Admin: 10/15/23 16:36 Dose: 5 ml Haloperidol (Haloperidol 1 Mg Tablet) 2 mg PO Q6H PRN PRN Reason: Psychosis Hydrocortisone (Hydrocortisone 2.5 % Rectal Cr 30 Gm Tube) 1 appl [place] DAILY PRN PRN Reason: Hemorrhoids Last Admin: 10/13/23 21:37 Dose: 1 appl Hydroxyzine HCl (Hydroxyzine Hcl 25 Mg Tablet) 25 mg PO Q6H PRN PRN Reason: Anxiety Levothyroxine Sodium (Levothyroxine Sodium 88 Mcg Tablet) 88 mcg PO DAILY@0600 [facility] Last Admin: 10/16/23 06:19 Dose: 88 mcg Lorazepam (Lorazepam 0.5 Mg Tablet) 0.5 mg PO DAILY PRN PRN Reason: anxiety Magnesium Hydroxide (Milk Of Magnesia 30 Ml Oral.Susp) 30 ml PO DAILY PRN PRN Reason: Constipation Last Admin: 10/10/23 20:56 Dose: 30 ml Memantine (Memantine Hcl 5 Mg Tablet) 5 mg PO DAILY [facility] Metformin HCl (Metformin Hcl Er 750 Mg Tab.Er.24h) 750 mg PO BID [facility] Last Admin: 10/16/23 08:00 Dose: 750 mg Metoprolol Succinate (Metoprolol Succinate Er 25 Mg Tab.Er.24h) 25 mg PO DAILY [facility]; Protocol Last Admin: 10/16/23 07:59 Dose: 25 mg Pt Own (Cyclosporine [Restasis] 0.05 % Dropperette) 1 drop EYE-BOTH DAILY [facility] Last Admin: 10/16/23 07:59 Dose: 1 drop Polyethylene Glycol (Polyethylene Glycol 3350 17 Gm Powd.Pack) 17 gm PO DAILY PRN PRN Reason: Constipation Last Admin: 10/13/23 20:10 Dose: 17 gm Sitagliptin Phosphate (Sitagliptin Phosphate 50 Mg Tablet) 50 mg PO DAILY [facility] Last Admin: 10/16/23 07:59 Dose: 50 mg Spironolactone (Spironolactone 25 Mg Tablet) 12.5 mg PO DAILY [facility]; Protocol Last Admin: 10/16/23 07:59 Dose: 12.5 mg Trazodone HCl (Trazodone Hcl 50 Mg Tablet) 50 mg PO BEDTIME MRX1 PRN PRN Reason: Insomnia Last Admin: 10/15/23 20:30 Dose: 50 mg Vitamin D (Cholecalciferol (Vitamin D3) 25 Mcg Tablet) 25 mcg PO DAILY [facility] Last Admin: 10/16/23 07:59 Dose: 25 mcg Allergies Allergies Allergy/AdvReac Type Severity Reaction Status Date / Time codeine Allergy Unknown Verified 10/03/23 20:40 Assessment & Plan Assessment & Plan (1) MCI (mild cognitive impairment): Status: Acute Code(s): G31.84 - Mild cognitive impairment of uncertain or unknown etiology Plan Mrs. Jni is a 83 year-old woman who has been presenting with delusions of having an affair with former visiting nurse who was coming to their house. Pt reports hearing people walking, mumbles. She has not seen this woman but is sure that she has moved in to their house and leaves every day at around 3am. She has called the police, which has not found anyone other than her and her at night. However, this has not been reassuring but instead pt insists this woman is fast and clever. No prior history of psychosis or delusions. Pt does NOT present as delirious either. 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 I discuss with patient work up for dementia and other cognitive impairments. She seems to show some degree of understanding and agreement to complete testing and is in agreement with admission. Her orientation is fairly intact. Her language seems to be preserved. Further testing will help elucidate if any other cognitive areas with impairment. B12 is low- may consider cyanocobalamine 1000mcg IM q weekly for 4 weeks, then oral. PLAN 1. Admit to S1, CV, 15 minutes checks 2. continue current medications. 3. obtain collateral information 4. aftercare planning. 5. Add Haldol 2 mg p.o. q.6 hours p.r.n. visual hallucinations. 6. Ativan was changed to p.r.n. over the weekend. 7. Occupational therapist did cognitive assessmen, she scored 70/30 on the [place] and 3.4 on the [place] test. 8. Start Aricept 5 mg p.o. q.h.s. on October 10. 9. Family meeting on October 11. 10. Start Namenda 5 mg p.o. b.i.d. on October 15 Reason for continued inpatient stay Substantial Risk for: inability to function, rapid decompensation and med/psych decompensation Time Spent With Patient Time: Total time managing care of this patient today __20__ minutes.
[2023-10-16 20:00] VITALS: BP 132/58; PULSE 63; RESP 18; TEMP 36.6; O2SAT 99
[2023-10-16] MEDS: traZODone HCL 50 MG TABLET PO (20:34)
[2023-10-16] MEDS: Donepezil HCl 5 MG TABLET PO (20:34)
[2023-10-16 21:04] LABS: Glucose, Whole Blood 130 mg/dL (60-115)
[2023-10-17] MEDS: guaiFENesin 100 MG/5 ML LIQUID PO (02:47)
[2023-10-17] MEDS: hydrOXYzine HCL 25 MG TABLET PO (02:47)
[2023-10-17] MEDS: traZODone HCL 50 MG TABLET PO (02:48)
[2023-10-17] MEDS: Hydrocortisone 2.5 % Rectal Cr 30 GM TUBE 1 APPL PR (02:48)
[2023-10-17] MEDS: Levothyroxine Sodium 88 MCG TABLET PO (06:28)
[2023-10-17 06:45] LABS: Glucose, Whole Blood 88 mg/dL (60-115)
[2023-10-17 08:00] VITALS: BP 117/66; PULSE 56; RESP 18; TEMP 36.4; O2SAT 97
[2023-10-17 10:05] VITALS: BP 117/66; PULSE 56
[2023-10-17] MEDS: metFORMIN HCl ER 750 MG TAB.ER.24H PO ×2 (10:05→20:38)
[2023-10-17] MEDS: Metoprolol Succinate ER 25 MG TAB.ER.24H PO (10:05)
[2023-10-17 10:06] VITALS: BP 117/66
[2023-10-17] MEDS: Spironolactone 25 MG TABLET 12.5 MG PO (10:06)
[2023-10-17] MEDS: Escitalopram Oxalate 10 MG TABLET PO (10:07)
[2023-10-17] MEDS: SITagliptin Phosphate 50 MG TABLET PO (10:07)
[2023-10-17] MEDS: Cholecalciferol (Vitamin D3) 25 MCG TABLET PO (10:07)
[2023-10-17] MEDS: Atorvastatin Calcium 10 MG TABLET PO (10:07)
[2023-10-17] MEDS: PT OWN (Cyclosporine [Restasis] 0.05 % Dropperette) 1 EACH EYE-BOTH (10:11)
[2023-10-17] MEDS: allopurinoL 100 MG TABLET PO (10:14)
[2023-10-17] MEDS: Memantine HCl 5 MG TABLET PO (10:16)
--- NOTE | 2023-10-17 15:29 | P.PNPSI_ITS ---
Subjective Subjective Date of Service: 10/17/23 Reason For Visit: SI Subjective Notes: Conditional Voluntary Interim History: The nursing staff reported the patient slept 8 hours and she received cough syrup no changes in her mental status. On interview the patient reported that trazodone over-sedated her last night we are going to lower the p.r.n. to 25 p.o. q.h.s. p.r.n. insomnia. Mental Status Exam Mental Status Exam Patient Appearance: Appropriate Patient Orientation: Person and Situation Level of Consciousness: Awake and Appropriate Patient Behavior: Guarded and Passive Mood Description: Withdrawn Affect Description: Constricted Patient Cognition Impaired: Yes Ability to Follow Directions: Good Speech Pattern: Clear Hallucinations: None Delusions: Not Present Thought Process: Distracted and Slowed Thinking Thought Content: positive for [place] and positive for Poverty of Content Judgement: Poor Diagnostics Vital Signs (24Hr): Vital Signs - 24 hr 10/16/23 20:00 10/17/23 08:00 10/17/23 10:05 Temperature 97.8 F 97.6 F Pulse Rate 63 56 56 Respiratory Rate 18 18 Blood Pressure 132/58 L 117/66 117/66 Pulse Oximetry 99 97 Oxygen Delivery Method Room Air Room Air 10/17/23 10:06 Temperature Pulse Rate Respiratory Rate Blood Pressure 117/66 Pulse Oximetry Oxygen Delivery Method BMI result Body Mass Index 27.9 Labs 10/03/23 21:03 10/13/23 07:59 Labs: Laboratory Results - last 48 hr 10/15/23 10/16/23 10/16/23 20:02 06:30 19:51 POC Glucose 152 H 91 130 H 10/17/23 06:30 POC Glucose 88 Imaging Radiology Impressions: ITS Impressions Head CT 10/04/23 11:08 IMPRESSION: 1. 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 2. No intracranial hemorrhage or skull fracture is seen. 3. No evidence of space occupying lesion could be found. 4. The current plain CT scan of the brain shows no diagnostic evidence of acute cerebral infarction. Medications Medications Current Medications Acetaminophen (Acetaminophen 325 Mg Tablet) 650 mg PO Q6H PRN PRN Reason: Headache/Pain Mild Scale (1-3) Last Admin: 10/16/23 08:30 Dose: 650 mg Al Hydroxide/Mg Hydroxide (Magnesium Hydrox/Alum Hydrox 30 Ml Oral.Susp) 30 ml PO Q6H PRN PRN Reason: Heartburn/Nausea Allopurinol (Allopurinol 100 Mg Tablet) 100 mg PO DAILY [facility] Last Admin: 10/17/23 10:14 Dose: 100 mg Atorvastatin Calcium (Atorvastatin Calcium 10 Mg Tablet) 10 mg PO DAILY [facility] Last Admin: 10/17/23 10:07 Dose: 10 mg Benzocaine (Throat Lozenge, Medicated Lozenge) 1 lozenge MUCOUS MEM Q2H PRN PRN Reason: Sore Throat Last Admin: 10/15/23 16:36 Dose: 1 lozenge Cholestyramine Resin (Cholestyramine (With Sugar) 4 Gm Powd.Pack) 4 gm PO DAILY [facility] Last Admin: 10/17/23 10:08 Dose: Not Given Diphenoxylate HCl/Atropine (Diphenoxylate/Atrop 2.5/0.025 Tablet) 1 tab PO DAILY PRN PRN Reason: Diarrhea Docusate Sodium (Docusate Sodium 100 Mg Capsule) 100 mg PO BID PRN PRN Reason: Constipation Donepezil HCl (Donepezil Hcl 5 Mg Tablet) 5 mg PO BEDTIME [facility] Last Admin: 10/16/23 20:34 Dose: 5 mg Escitalopram Oxalate (Escitalopram Oxalate 10 Mg Tablet) 10 mg PO DAILY [facility] Last Admin: 10/17/23 10:07 Dose: 10 mg Guaifenesin (Guaifenesin 100 Mg/5 Ml Liquid) 5 ml PO Q4H PRN PRN Reason: Cough Last Admin: 10/17/23 02:47 Dose: 5 ml Haloperidol (Haloperidol 1 Mg Tablet) 2 mg PO Q6H PRN PRN Reason: Psychosis Hydrocortisone (Hydrocortisone 2.5 % Rectal Cr 30 Gm Tube) 1 appl [place] DAILY PRN PRN Reason: Hemorrhoids Last Admin: 10/17/23 02:48 Dose: 1 appl Hydroxyzine HCl (Hydroxyzine Hcl 25 Mg Tablet) 25 mg PO Q6H PRN PRN Reason: Anxiety Last Admin: 10/17/23 02:47 Dose: 25 mg Levothyroxine Sodium (Levothyroxine Sodium 88 Mcg Tablet) 88 mcg PO DAILY@0600 [facility] Last Admin: 10/17/23 06:28 Dose: 88 mcg Lorazepam (Lorazepam 0.5 Mg Tablet) 0.5 mg PO DAILY PRN PRN Reason: anxiety Magnesium Hydroxide (Milk Of Magnesia 30 Ml Oral.Susp) 30 ml PO DAILY PRN PRN Reason: Constipation Last Admin: 10/10/23 20:56 Dose: 30 ml Memantine (Memantine Hcl 5 Mg Tablet) 5 mg PO DAILY [facility] Last Admin: 10/17/23 10:16 Dose: 5 mg Metformin HCl (Metformin Hcl Er 750 Mg Tab.Er.24h) 750 mg PO BID [facility] Last Admin: 10/17/23 10:05 Dose: 750 mg Metoprolol Succinate (Metoprolol Succinate Er 25 Mg Tab.Er.24h) 25 mg PO DAILY [facility]; Protocol Last Admin: 10/17/23 10:05 Dose: 25 mg Pt Own (Cyclosporine [Restasis] 0.05 % Dropperette) 1 drop EYE-BOTH DAILY [facility] Last Admin: 10/17/23 10:11 Dose: 1 drop Polyethylene Glycol (Polyethylene Glycol 3350 17 Gm Powd.Pack) 17 gm PO DAILY PRN PRN Reason: Constipation Last Admin: 10/13/23 20:10 Dose: 17 gm Sitagliptin Phosphate (Sitagliptin Phosphate 50 Mg Tablet) 50 mg PO DAILY [facility] Last Admin: 10/17/23 10:07 Dose: 50 mg Spironolactone (Spironolactone 25 Mg Tablet) 12.5 mg PO DAILY [facility]; Protocol Last Admin: 10/17/23 10:06 Dose: 12.5 mg Trazodone HCl (Trazodone Hcl 50 Mg Tablet) 50 mg PO BEDTIME MRX1 PRN PRN Reason: Insomnia Last Admin: 10/17/23 02:48 Dose: 50 mg Vitamin D (Cholecalciferol (Vitamin D3) 25 Mcg Tablet) 25 mcg PO DAILY [facility] Last Admin: 10/17/23 10:07 Dose: 25 mcg Allergies Allergies Allergy/AdvReac Type Severity Reaction Status Date / Time codeine Allergy Unknown Verified 10/03/23 20:40 Assessment & Plan Assessment & Plan (1) MCI (mild cognitive impairment): Status: Acute Code(s): G31.84 - Mild cognitive impairment of uncertain or unknown etiology Plan Mrs. Jin is a 83 year-old woman who has been presenting with delusions of having an affair with former visiting nurse who was coming to their house. Pt reports hearing people walking, mumbles. She has not seen this woman but is sure that she has moved in to their house and leaves every day at around 3am. She has called the police, which has not found anyone other than her and her at night. However, this has not been reassuring but instead pt insists this woman is fast and clever. No prior history of psychosis or delusions. Pt does NOT present as delirious either. 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 I discuss with patient work up for dementia and other cognitive impairments. She seems to show some degree of understanding and agreement to complete testing and is in agreement with admission. Her orientation is fairly intact. Her language seems to be preserved. Further testing will help elucidate if any other cognitive areas with impairment. B12 is low- may consider cyanocobalamine 1000mcg IM q weekly for 4 weeks, then oral. PLAN 1. Admit to S1, CV, 15 minutes checks 2. continue current medications. 3. obtain collateral information 4. aftercare planning. 5. Add Haldol 2 mg p.o. q.6 hours p.r.n. visual hallucinations. 6. Ativan was changed to p.r.n. over the weekend. 7. Occupational therapist did cognitive assessmen, she scored 70/30 on the [place] and 3.4 on the [place] test. 8. Start Aricept 5 mg p.o. q.h.s. on October 10. 9. Family meeting on October 11. 10. Start Namenda 5 mg p.o. b.i.d. on October 15 Reason for continued inpatient stay Substantial Risk for: inability to function, rapid decompensation and med/psych decompensation Time Spent With Patient Time: Total time managing care of this patient today __20__ minutes.
[2023-10-17] MEDS: Acetaminophen 325 MG TABLET 650 MG PO (17:30)
[2023-10-17 20:00] VITALS: BP 114/52; PULSE 96; TEMP 36.7; O2SAT 97
[2023-10-17 20:01] LABS: Glucose, Whole Blood 97 mg/dL (60-115)
[2023-10-17] MEDS: Donepezil HCl 5 MG TABLET PO (20:38)
[2023-10-17] MEDS: traZODone HCL 25 MG HALFTAB PO (20:39)
[2023-10-18] MEDS: Levothyroxine Sodium 88 MCG TABLET PO (06:31)
[2023-10-18 06:45] LABS: Glucose, Whole Blood 101 mg/dL (60-115)
[2023-10-18 08:00] VITALS: BP 134/61; PULSE 57; RESP 17; TEMP 36; O2SAT 98
[2023-10-18] MEDS: metFORMIN HCl ER 750 MG TAB.ER.24H PO ×2 (08:21→20:22)
[2023-10-18] MEDS: Memantine HCl 5 MG TABLET PO (08:21)
[2023-10-18 08:22] VITALS: BP 134/61
[2023-10-18] MEDS: Cholecalciferol (Vitamin D3) 25 MCG TABLET PO (08:22)
[2023-10-18] MEDS: allopurinoL 100 MG TABLET PO (08:22)
[2023-10-18] MEDS: Atorvastatin Calcium 10 MG TABLET PO (08:22)
[2023-10-18] MEDS: SITagliptin Phosphate 50 MG TABLET PO (08:22)
[2023-10-18] MEDS: Spironolactone 25 MG TABLET 12.5 MG PO (08:22)
[2023-10-18] MEDS: Escitalopram Oxalate 10 MG TABLET PO (08:24)
[2023-10-18] MEDS: PT OWN (Cyclosporine [Restasis] 0.05 % Dropperette) 1 EACH EYE-BOTH (08:27)
[2023-10-18] MEDS: Acetaminophen 325 MG TABLET 650 MG PO (11:33)
--- NOTE | 2023-10-18 12:05 | P.PNPSI_ITS ---
Subjective Subjective Date of Service: 10/18/23 Reason For Visit: SI Subjective Notes: Conditional Voluntary Interim History: The nursing staff reported that the patient had been flat denies auditory hallucinations he complained of back pain and she slept 8 hours. On interview the patient adamantly denies auditory hallucinations most likely she will be discharged next Monday. Mental Status Exam Mental Status Exam Patient Appearance: Appropriate Patient Orientation: Person and Situation Level of Consciousness: Awake Patient Behavior: Guarded and Passive Mood Description: Withdrawn Affect Description: Constricted Patient Cognition Impaired: Yes Ability to Follow Directions: Good Speech Pattern: Clear Hallucinations: None Delusions: Not Present Thought Process: Distracted and Slowed Thinking Thought Content: positive for [place] and positive for Poverty of Content Judgement: Fair Diagnostics Vital Signs (24Hr): Vital Signs - 24 hr 10/17/23 20:00 10/18/23 08:00 10/18/23 08:22 Temperature 98.1 F 96.8 F Pulse Rate 96 57 Respiratory Rate 17 Blood Pressure 114/52 L 134/61 134/61 Pulse Oximetry 97 98 Oxygen Delivery Method Room Air Room Air BMI result Body Mass Index 27.9 Labs 10/03/23 21:03 10/13/23 07:59 Labs: Laboratory Results - last 48 hr 10/16/23 10/17/23 10/17/23 19:51 06:30 19:45 POC Glucose 130 H 88 97 10/18/23 06:36 POC Glucose 101 Imaging Radiology Impressions: ITS Impressions Head CT 10/04/23 11:08 IMPRESSION: 1. 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 2. No intracranial hemorrhage or skull fracture is seen. 3. No evidence of space occupying lesion could be found. 4. The current plain CT scan of the brain shows no diagnostic evidence of acute cerebral infarction. Medications Medications Current Medications Acetaminophen (Acetaminophen 325 Mg Tablet) 650 mg PO Q6H PRN PRN Reason: Headache/Pain Mild Scale (1-3) Last Admin: 10/18/23 11:33 Dose: 650 mg Al Hydroxide/Mg Hydroxide (Magnesium Hydrox/Alum Hydrox 30 Ml Oral.Susp) 30 ml PO Q6H PRN PRN Reason: Heartburn/Nausea Allopurinol (Allopurinol 100 Mg Tablet) 100 mg PO DAILY [facility] Last Admin: 10/18/23 08:22 Dose: 100 mg Atorvastatin Calcium (Atorvastatin Calcium 10 Mg Tablet) 10 mg PO DAILY [facility] Last Admin: 10/18/23 08:22 Dose: 10 mg Benzocaine (Throat Lozenge, Medicated Lozenge) 1 lozenge MUCOUS MEM Q2H PRN PRN Reason: Sore Throat Last Admin: 10/15/23 16:36 Dose: 1 lozenge Cholestyramine Resin (Cholestyramine (With Sugar) 4 Gm Powd.Pack) 4 gm PO DAILY [facility] Last Admin: 10/18/23 08:26 Dose: Not Given Diphenoxylate HCl/Atropine (Diphenoxylate/Atrop 2.5/0.025 Tablet) 1 tab PO DAILY PRN PRN Reason: Diarrhea Docusate Sodium (Docusate Sodium 100 Mg Capsule) 100 mg PO BID PRN PRN Reason: Constipation Donepezil HCl (Donepezil Hcl 5 Mg Tablet) 5 mg PO BEDTIME [facility] Last Admin: 10/17/23 20:38 Dose: 5 mg Escitalopram Oxalate (Escitalopram Oxalate 10 Mg Tablet) 10 mg PO DAILY [facility] Last Admin: 10/18/23 08:24 Dose: 10 mg Guaifenesin (Guaifenesin 100 Mg/5 Ml Liquid) 5 ml PO Q4H PRN PRN Reason: Cough Last Admin: 10/17/23 02:47 Dose: 5 ml Haloperidol (Haloperidol 1 Mg Tablet) 2 mg PO Q6H PRN PRN Reason: Psychosis Hydrocortisone (Hydrocortisone 2.5 % Rectal Cr 30 Gm Tube) 1 appl [place] DAILY PRN PRN Reason: Hemorrhoids Last Admin: 10/17/23 02:48 Dose: 1 appl Hydroxyzine HCl (Hydroxyzine Hcl 25 Mg Tablet) 25 mg PO Q6H PRN PRN Reason: Anxiety Last Admin: 10/17/23 02:47 Dose: 25 mg Levothyroxine Sodium (Levothyroxine Sodium 88 Mcg Tablet) 88 mcg PO DAILY@0600 [facility] Last Admin: 10/18/23 06:31 Dose: 88 mcg Lorazepam (Lorazepam 0.5 Mg Tablet) 0.5 mg PO DAILY PRN PRN Reason: anxiety Magnesium Hydroxide (Milk Of Magnesia 30 Ml Oral.Susp) 30 ml PO DAILY PRN PRN Reason: Constipation Last Admin: 10/10/23 20:56 Dose: 30 ml Memantine (Memantine Hcl 5 Mg Tablet) 5 mg PO DAILY [facility] Last Admin: 10/18/23 08:21 Dose: 5 mg Metformin HCl (Metformin Hcl Er 750 Mg Tab.Er.24h) 750 mg PO BID [facility] Last Admin: 10/18/23 08:21 Dose: 750 mg Metoprolol Succinate (Metoprolol Succinate Er 25 Mg Tab.Er.24h) 25 mg PO DAILY [facility]; Protocol Last Admin: 10/18/23 08:25 Dose: Not Given Pt Own (Cyclosporine [Restasis] 0.05 % Dropperette) 1 drop EYE-BOTH DAILY [facility] Last Admin: 10/18/23 08:27 Dose: 1 drop Polyethylene Glycol (Polyethylene Glycol 3350 17 Gm Powd.Pack) 17 gm PO DAILY PRN PRN Reason: Constipation Last Admin: 10/13/23 20:10 Dose: 17 gm Sitagliptin Phosphate (Sitagliptin Phosphate 50 Mg Tablet) 50 mg PO DAILY [facility] Last Admin: 10/18/23 08:22 Dose: 50 mg Spironolactone (Spironolactone 25 Mg Tablet) 12.5 mg PO DAILY [facility]; Protocol Last Admin: 10/18/23 08:22 Dose: 12.5 mg Trazodone HCl (Trazodone Hcl 25 Mg Halftab) 25 mg PO BEDTIME PRN PRN Reason: Insomnia Last Admin: 10/17/23 20:39 Dose: 25 mg Vitamin D (Cholecalciferol (Vitamin D3) 25 Mcg Tablet) 25 mcg PO DAILY [facility] Last Admin: 10/18/23 08:22 Dose: 25 mcg Allergies Allergies Allergy/AdvReac Type Severity Reaction Status Date / Time codeine Allergy Unknown Verified 10/03/23 20:40 Assessment & Plan Assessment & Plan (1) MCI (mild cognitive impairment): Status: Acute Code(s): G31.84 - Mild cognitive impairment of uncertain or unknown etiology Plan Mrs. Jin is a 83 year-old woman who has been presenting with delusions of having an affair with former visiting nurse who was coming to their house. Pt reports hearing people walking, mumbles. She has not seen this woman but is sure that she has moved in to their house and leaves every day at around 3am. She has called the police, which has not found anyone other than her and her at night. However, this has not been reassuring but instead pt insists this woman is fast and clever. No prior history of psychosis or delusions. Pt does NOT present as delirious either. 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 I discuss with patient work up for dementia and other cognitive impairments. She seems to show some degree of understanding and agreement to complete testing and is in agreement with admission. Her orientation is fairly intact. Her language seems to be preserved. Further testing will help elucidate if any other cognitive areas with impairment. B12 is low- may consider cyanocobalamine 1000mcg IM q weekly for 4 weeks, then oral. PLAN 1. Admit to S1, CV, 15 minutes checks 2. continue current medications. 3. obtain collateral information 4. aftercare planning. 5. Add Haldol 2 mg p.o. q.6 hours p.r.n. visual hallucinations. 6. Ativan was changed to p.r.n. over the weekend. 7. Occupational therapist did cognitive assessmen, she scored 70/30 on the Protivin and 3.4 on the Pete test. 8. Start Aricept 5 mg p.o. q.h.s. on October 10. 9. Family meeting on October 11. 10. Start Namenda 5 mg p.o. b.i.d. on October 15 11. Atypical antipsychotics will not started yet since there is the resolution of psychotic symptoms most likely due to UTI ready resolved Reason for continued inpatient stay Substantial Risk for: inability to function, rapid decompensation and med/psych decompensation Time Spent With Patient Time: Total time managing care of this patient today __20__ minutes.
[2023-10-18 20:00] VITALS: BP 126/51; PULSE 79; RESP 18; TEMP 36.2; O2SAT 95
[2023-10-18] MEDS: Donepezil HCl 5 MG TABLET PO (20:21)
[2023-10-18 20:36] LABS: Glucose, Whole Blood 141 mg/dL (60-115)
[2023-10-18] MEDS: traZODone HCL 25 MG HALFTAB PO (21:37)
[2023-10-19] MEDS: Levothyroxine Sodium 88 MCG TABLET PO (06:31)
[2023-10-19 07:00] VITALS: BMI 28.0
[2023-10-19 08:00] VITALS: BP 115/57; PULSE 69; RESP 18; TEMP 36.1; O2SAT 97
[2023-10-19 08:56] LABS: Glucose, Whole Blood 100 mg/dL (60-115)
[2023-10-19 09:03] VITALS: BP 115/57
[2023-10-19] MEDS: Spironolactone 25 MG TABLET 12.5 MG PO (09:03)
[2023-10-19] MEDS: metFORMIN HCl ER 750 MG TAB.ER.24H PO ×2 (09:04→20:24)
[2023-10-19] MEDS: Cholecalciferol (Vitamin D3) 25 MCG TABLET PO (09:04)
[2023-10-19] MEDS: Escitalopram Oxalate 10 MG TABLET PO (09:04)
[2023-10-19] MEDS: SITagliptin Phosphate 50 MG TABLET PO (09:04)
[2023-10-19] MEDS: allopurinoL 100 MG TABLET PO (09:04)
[2023-10-19 09:05] VITALS: BP 115/57; PULSE 69
[2023-10-19] MEDS: Atorvastatin Calcium 10 MG TABLET PO (09:05)
[2023-10-19] MEDS: Metoprolol Succinate ER 25 MG TAB.ER.24H PO (09:05)
[2023-10-19] MEDS: Memantine HCl 5 MG TABLET PO (09:05)
[2023-10-19] MEDS: PT OWN (Cyclosporine [Restasis] 0.05 % Dropperette) 1 EACH EYE-BOTH (09:16)
--- NOTE | 2023-10-19 12:54 | HO.PSYCHPN ---
Subjective Subjective Date of Service: 10/19/23 Reason For Visit: SI Subjective Notes: Conditional Voluntary Interim History: The nursing staff reported the patient is doing well she denies hallucinations or illusions she remains most of the time isolative but easily redirectable. Today her outpatient psychiatrist contact me and I explained the goals of treatment so far we are keeping her only on medications for dementia no antipsychotics yet. We are scheduling discharge for tomorrow. Mental Status Exam Mental Status Exam Patient Appearance: Appropriate Patient Orientation: Person and Situation Level of Consciousness: Awake and Appropriate Patient Behavior: Guarded and Passive Mood Description: Withdrawn Affect Description: Constricted Patient Cognition Impaired: Yes Ability to Follow Directions: Good Speech Pattern: Clear Hallucinations: None Delusions: Not Present Thought Process: Distracted and Slowed Thinking Thought Content: positive for [place] and positive for Poverty of Content Judgement: Fair Diagnostics Vital Signs (24Hr): Vital Signs - 24 hr 10/18/23 20:00 10/19/23 08:00 10/19/23 09:03 Temperature 97.1 F 97.0 F Pulse Rate 79 69 Respiratory Rate 18 18 Blood Pressure 126/51 L 115/57 L 115/57 L Pulse Oximetry 95 97 Oxygen Delivery Method Room Air Room Air 10/19/23 09:05 Temperature Pulse Rate 69 Respiratory Rate Blood Pressure 115/57 L Pulse Oximetry Oxygen Delivery Method BMI result Body Mass Index 28.0 Labs 10/03/23 21:03 10/13/23 07:59 Labs: Laboratory Results - last 48 hr 10/17/23 10/18/23 10/18/23 19:45 06:36 19:45 POC Glucose 97 101 141 H 10/19/23 06:47 POC Glucose 100 Imaging Radiology Impressions: ITS Impressions Head CT 10/04/23 11:08 IMPRESSION: 1. 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 2. No intracranial hemorrhage or skull fracture is seen. 3. No evidence of space occupying lesion could be found. 4. The current plain CT scan of the brain shows no diagnostic evidence of acute cerebral infarction. Medications Medications Current Medications Acetaminophen (Acetaminophen 325 Mg Tablet) 650 mg PO Q6H PRN PRN Reason: Headache/Pain Mild Scale (1-3) Last Admin: 10/18/23 11:33 Dose: 650 mg Al Hydroxide/Mg Hydroxide (Magnesium Hydrox/Alum Hydrox 30 Ml Oral.Susp) 30 ml PO Q6H PRN PRN Reason: Heartburn/Nausea Allopurinol (Allopurinol 100 Mg Tablet) 100 mg PO DAILY [facility] Last Admin: 10/19/23 09:04 Dose: 100 mg Atorvastatin Calcium (Atorvastatin Calcium 10 Mg Tablet) 10 mg PO DAILY [facility] Last Admin: 10/19/23 09:05 Dose: 10 mg Benzocaine (Throat Lozenge, Medicated Lozenge) 1 lozenge MUCOUS MEM Q2H PRN PRN Reason: Sore Throat Last Admin: 10/15/23 16:36 Dose: 1 lozenge Cholestyramine Resin (Cholestyramine (With Sugar) 4 Gm Powd.Pack) 4 gm PO DAILY [facility] Last Admin: 10/19/23 11:28 Dose: Not Given Diphenoxylate HCl/Atropine (Diphenoxylate/Atrop 2.5/0.025 Tablet) 1 tab PO DAILY PRN PRN Reason: Diarrhea Docusate Sodium (Docusate Sodium 100 Mg Capsule) 100 mg PO BID PRN PRN Reason: Constipation Donepezil HCl (Donepezil Hcl 5 Mg Tablet) 5 mg PO BEDTIME [facility] Last Admin: 10/18/23 20:21 Dose: 5 mg Escitalopram Oxalate (Escitalopram Oxalate 10 Mg Tablet) 10 mg PO DAILY [facility] Last Admin: 10/19/23 09:04 Dose: 10 mg Guaifenesin (Guaifenesin 100 Mg/5 Ml Liquid) 5 ml PO Q4H PRN PRN Reason: Cough Last Admin: 10/17/23 02:47 Dose: 5 ml Haloperidol (Haloperidol 1 Mg Tablet) 2 mg PO Q6H PRN PRN Reason: Psychosis Hydrocortisone (Hydrocortisone 2.5 % Rectal Cr 30 Gm Tube) 1 appl [place] DAILY PRN PRN Reason: Hemorrhoids Last Admin: 10/17/23 02:48 Dose: 1 appl Hydroxyzine HCl (Hydroxyzine Hcl 25 Mg Tablet) 25 mg PO Q6H PRN PRN Reason: Anxiety Last Admin: 10/17/23 02:47 Dose: 25 mg Levothyroxine Sodium (Levothyroxine Sodium 88 Mcg Tablet) 88 mcg PO DAILY@0600 [facility] Last Admin: 10/19/23 06:31 Dose: 88 mcg Lorazepam (Lorazepam 0.5 Mg Tablet) 0.5 mg PO DAILY PRN PRN Reason: anxiety Magnesium Hydroxide (Milk Of Magnesia 30 Ml Oral.Susp) 30 ml PO DAILY PRN PRN Reason: Constipation Last Admin: 10/10/23 20:56 Dose: 30 ml Memantine (Memantine Hcl 5 Mg Tablet) 5 mg PO DAILY [facility] Last Admin: 10/19/23 09:05 Dose: 5 mg Metformin HCl (Metformin Hcl Er 750 Mg Tab.Er.24h) 750 mg PO BID [facility] Last Admin: 10/19/23 09:04 Dose: 750 mg Metoprolol Succinate (Metoprolol Succinate Er 25 Mg Tab.Er.24h) 25 mg PO DAILY [facility]; Protocol Last Admin: 10/19/23 09:05 Dose: 25 mg Pt Own (Cyclosporine [Restasis] 0.05 % Dropperette) 1 drop EYE-BOTH DAILY [facility] Last Admin: 10/19/23 09:16 Dose: 1 drop Polyethylene Glycol (Polyethylene Glycol 3350 17 Gm Powd.Pack) 17 gm PO DAILY PRN PRN Reason: Constipation Last Admin: 10/13/23 20:10 Dose: 17 gm Sitagliptin Phosphate (Sitagliptin Phosphate 50 Mg Tablet) 50 mg PO DAILY [facility] Last Admin: 10/19/23 09:04 Dose: 50 mg Spironolactone (Spironolactone 25 Mg Tablet) 12.5 mg PO DAILY [facility]; Protocol Last Admin: 10/19/23 09:03 Dose: 12.5 mg Trazodone HCl (Trazodone Hcl 25 Mg Halftab) 25 mg PO BEDTIME PRN PRN Reason: Insomnia Last Admin: 10/18/23 21:37 Dose: 25 mg Vitamin D (Cholecalciferol (Vitamin D3) 25 Mcg Tablet) 25 mcg PO DAILY [facility] Last Admin: 10/19/23 09:04 Dose: 25 mcg Allergies Allergies Allergy/AdvReac Type Severity Reaction Status Date / Time codeine Allergy Unknown Verified 10/03/23 20:40 Assessment & Plan Assessment & Plan (1) MCI (mild cognitive impairment): Status: Acute Code(s): G31.84 - Mild cognitive impairment of uncertain or unknown etiology Plan Mrs. Jin is a 83 year-old woman who has been presenting with delusions of having an affair with former visiting nurse who was coming to their house. Pt reports hearing people walking, mumbles. She has not seen this woman but is sure that she has moved in to their house and leaves every day at around 3am. She has called the police, which has not found anyone other than her and her at night. However, this has not been reassuring but instead pt insists this woman is fast and clever. No prior history of psychosis or delusions. Pt does NOT present as delirious either. 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 I discuss with patient work up for dementia and other cognitive impairments. She seems to show some degree of understanding and agreement to complete testing and is in agreement with admission. Her orientation is fairly intact. Her language seems to be preserved. Further testing will help elucidate if any other cognitive areas with impairment. B12 is low- may consider cyanocobalamine 1000mcg IM q weekly for 4 weeks, then oral. PLAN 1. Admit to S1, CV, 15 minutes checks 2. continue current medications. 3. obtain collateral information 4. aftercare planning. 5. Add Haldol 2 mg p.o. q.6 hours p.r.n. visual hallucinations. 6. Ativan was changed to p.r.n. over the weekend. 7. Occupational therapist did cognitive assessmen, she scored 70/30 on the [place] and 3.4 on the Pete test. 8. Start Aricept 5 mg p.o. q.h.s. on October 10. 9. Family meeting on October 11. 10. Start Namenda 5 mg p.o. b.i.d. on October 15 11. Atypical antipsychotics will not started yet since there is the resolution of psychotic symptoms most likely due to UTI ready resolved Reason for continued inpatient stay Substantial Risk for: inability to function, rapid decompensation and med/psych decompensation Time Spent With Patient Time: Total time managing care of this patient today __20__ minutes.
[2023-10-19 20:00] VITALS: BP 124/70; PULSE 68; RESP 16; TEMP 36.1; O2SAT 97
[2023-10-19] MEDS: Donepezil HCl 5 MG TABLET PO (20:23)
[2023-10-19] MEDS: traZODone HCL 25 MG HALFTAB PO (20:24)
[2023-10-19] MEDS: polyethylene glycoL 3350 17 GM POWD.PACK PO (20:24)
[2023-10-19 20:43] LABS: Glucose, Whole Blood 136 mg/dL (60-115)
[2023-10-20] MEDS: Levothyroxine Sodium 88 MCG TABLET PO (05:55)
[2023-10-20 06:43] LABS: Glucose, Whole Blood 86 mg/dL (60-115)
--- NOTE | 2023-10-20 08:12 | PM.PSYDC ---
DS: Providers Provider Date of Service: 10/20/23 Date of admission: 10/05/23 12:02 Date of discharge: 10/20/23 Primary care physician: Unknown Physician DS: Diagnosis Discharge Diagnosis (1) MCI (mild cognitive impairment): Status: Acute DS: Medications Discharge Medications Home Medications: Home Medications ?Medication ?Instructions ?Recorded ?Confirmed acetaminophen 500 mg tablet 500 mg PO DAILY PRN Pain 10/04/23 10/04/23 allopurinol 100 mg tablet 100 mg PO DAILY 10/04/23 10/04/23 cholestyramine (with sugar) 4 gram 4 g PO DAILY 10/04/23 10/04/23 powder for susp in a packet cyclosporine 0.05 % eye drops in a 1 drp ophthalmic (eye) DAILY 10/04/23 10/04/23 dropperette (Restasis) diphenoxylate-atropine 2.5 1 tab PO DAILY PRN Diarrhea 10/04/23 10/04/23 mg-0.025 mg tablet (Lomotil) escitalopram oxalate 10 mg tablet 10 mg PO DAILY 10/04/23 10/04/23 levothyroxine 88 mcg tablet 88 mcg PO DAILY 10/04/23 10/04/23 lorazepam 0.5 mg tablet 0.5 mg PO DAILY anxiety 10/04/23 10/04/23 metformin 500 mg tablet,extended 750 mg PO BID 10/04/23 10/04/23 release 24 hr metoprolol succinate 25 mg 25 mg PO DAILY 10/04/23 10/04/23 tablet,extended release 24 hr simvastatin 10 mg tablet 10 mg PO BEDTIME 10/04/23 10/04/23 sitagliptin phosphate 100 mg 100 mg PO DAILY 10/04/23 10/04/23 tablet (Januvia) spironolactone 25 mg tablet 12.5 mg PO DAILY 10/04/23 10/04/23 Mental Status Exam Mental Status Exam Patient Appearance: Well Grooomed and Appropriate Patient Orientation: Person and Situation Level of Consciousness: Awake and Appropriate Patient Behavior: Guarded and Passive Mood Description: Withdrawn Affect Description: Constricted Patient Cognition Impaired: Yes Ability to Follow Directions: Good Speech Pattern: Clear Hallucinations: None Delusions: Not Present Thought Process: Distracted and Slowed Thinking Thought Content: positive for [place] and positive for Poverty of Content Judgement: Fair Data Data Completed and Pending Completed studies during hospitalization [Text1]: 10/13/23 10/13/23 10/14/23 07:59 20:08 06:31 Creatinine 1.05 Estim Creat Clear Calc 40.6 Estimated GFR 50 POC Glucose 113 93 10/14/23 10/15/23 10/15/23 20:46 06:05 20:02 Creatinine Estim Creat Clear Calc Estimated GFR POC Glucose 129 H 103 152 H 10/16/23 10/16/23 10/17/23 06:30 19:51 06:30 Creatinine Estim Creat Clear Calc Estimated GFR POC Glucose 91 130 H 88 10/17/23 10/18/23 10/18/23 19:45 06:36 19:45 Creatinine Estim Creat Clear Calc Estimated GFR POC Glucose 97 101 141 H 10/19/23 10/19/23 10/20/23 06:47 20:22 06:28 Creatinine Estim Creat Clear Calc Estimated GFR POC Glucose 100 136 H 86 Imaging Diagnostic Imaging Impressions Head CT 10/04/23 11:08 IMPRESSION: 1. 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 2. No intracranial hemorrhage or skull fracture is seen. 3. No evidence of space occupying lesion could be found. 4. The current plain CT scan of the brain shows no diagnostic evidence of acute cerebral infarction. DS: Summary Hospital Course Hospital Course: The patient is an 83 year old female with a past history of depressive disorder treated as an outpatient by Dr. Haley.? She was brought to the emergency room since she was complaining of delusions stating that her has been cheating with her with the [facility].? She was medically cleared, assessed by crisis and transferring to this facility for psychiatric stabilization.? Please see the HPI of the admission note for further details.? On intake, the patient reported that she was feeling fine but she was sure that her was cheating on her.? She looks confused but very pleasant and cooperative.? With the medical workout and we could not find a UTI or any other infectious diseases that could exacerbate her disorganized behavior.? The occupational therapist did a Frio test and she scored very low with an Pete test of 3.4.? We discussed risks, benefits, side-effects and alternatives and she agreed to start Aricept.? 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 Aricept 5 mg were fairly tolerated with initial over-sedation and we tried to go up to 10 mg but she could not tolerated.? We also added Namenda due to the advanced dementia.? The titration was done to 5 mg p.o. b.i.d..? Her symptoms improved even though that she had a chronic cognitive impairment.? We had several family meetings and we explained the diagnosis.? We decided not to start antipsychotics since the patient was able to recognize the paranoid delusion.? We provide psychoeducation to the family and explained that eventually she could end up with antipsychotics if her symptoms persist.? We contacted her outpatient provider and gave him more information.? Since there were no safety concerns discharge planning was discussed. Time spent discussing smoking cessation with patient: 3 to 10 minutes Status at Discharge Cognitive/behavioral status at discharge: Impaired at baseline. Functional status at discharge: wheelchair bound Overall status at discharge: patient is back to baseline Time Spent with Patient Time attestation: Total time managing care of this patient today _30___ minutes. Time spent: Less than 30 minutes Discharge Plan Discharge Anticipated Discharge Date/Time: 10/20/23 10:00 Patient Disposition: Home, Self-Care Discharge Diagnosis: Dementia Referrals: [facility] [Other] - 10/23/23 (Services will start on Mon. 10/22 8 AM to 4 PM and continue at those hours Mon-Mon) [facility] [Other] - 10/20/23 (Services will continue 10/19 at 4pm) Dr. Haley (Psychiatrist) [Other] - 10/25/23 (Telehealth appointment set for October 24 at 10:20 AM) Rossana Bower PHYSICIAN NON INVASIVE CARDIOLOGIST [Nurse Practitioner] - 1 Week (Your follow up appointment has been schedule for 11/02/23 at 3pm ) Discharge Medications: New donepezil 5 mg Tablet 5 mg PO BEDTIME 30 Days Qty: 30 0RF acetaminophen 325 mg Tablet 650 mg PO Q6H PRN (Reason: Headache/Pain Mild Scale (1-3)) 30 Days Qty: 60 0RF memantine 5 mg Tablet 5 mg PO DAILY 30 Days Qty: 30 0RF cholecalciferol (vitamin D3) 25 mcg (1,000 unit) Tablet 25 mcg PO DAILY 30 Days Qty: 30 0RF Continued simvastatin 10 mg tablet 10 mg PO BEDTIME 30 Days Qty: 30 0RF diphenoxylate-atropine [Lomotil] 2.5-0.025 mg Tablet 1 tab PO DAILY PRN (Reason: Diarrhea) 30 Days Qty: 30 0RF allopurinol 100 mg tablet 100 mg PO DAILY 30 Days Qty: 30 0RF spironolactone 25 mg tablet 12.5 mg PO DAILY 30 Days Qty: 15 0RF levothyroxine 88 mcg tablet 88 mcg PO DAILY 30 Days Qty: 30 0RF lorazepam 0.5 mg tablet 0.5 mg PO DAILY 30 Days Qty: 30 0RF metoprolol succinate 25 mg tablet extended release 24 hr 25 mg PO DAILY 30 Days Qty: 30 0RF metformin 500 mg tablet extended release 24 hr 750 mg PO BID 30 Days Qty: 90 0RF cyclosporine [Restasis] 0.05 % Dropperette 1 drp OPHTHALMIC (EYE) DAILY Qty: 30 0RF cholestyramine (with sugar) 4 gram Powder In Packet 4 g PO DAILY Qty: 60 0RF Rx Instructions: mix in 4oz of liq administer w/meal; avoid other meds within 1hr before or 4-6hr after dose Januvia 100 mg Tablet 100 mg PO DAILY Qty: 30 0RF escitalopram oxalate 10 mg tablet 10 mg PO DAILY 30 Days Qty: 30 0RF Discontinued acetaminophen [Tylenol Ex Str Rapid Release] 500 mg Tablet 500 mg PO DAILY PRN (Reason: Pain) Discharge Orders: Discharge Order (Routine); Ordered 10/20/23 Ordered By: Shakeel Cornell Diet: Advance to usual diet Activity on Discharge: As tolerated Stand Alone Forms: Patient Portal Discharge page Print Language: Kinyarwanda Care Plan Goals: Care plan goals achieved in this admission. Health Concerns: Continue treatment with primary care physician and other outpatient providers. Plan of Treatment: Continue treatment with Her regular psychiatrist. Assessment: The patient is an elderly female with a past history of mild cognitive impairment who was brought to the facility for paranoid delusions.? It was clear that the patient has dementia mixed type Alzheimer's and vascular evident on the CT scan.? The patient was started on Aricept and Namenda with for tolerability.? At this moment the patient is ready to go back to the community with aftercare.
[2023-10-20 08:39] LABS: Creatinine Clr Calc Pharmacy 38.5; Estimated Glomerular Filt Rate 47
[2023-10-20 09:26] VITALS: BP 118/58; PULSE 57; RESP 16; TEMP 36.7; O2SAT 97
[2023-10-20] MEDS: Cholestyramine (With Sugar) 4 GM POWD.PACK PO (09:26)
[2023-10-20] MEDS: allopurinoL 100 MG TABLET PO (09:27)
[2023-10-20] MEDS: Cholecalciferol (Vitamin D3) 25 MCG TABLET PO (09:29)
[2023-10-20] MEDS: Memantine HCl 5 MG TABLET PO (09:29)
[2023-10-20] MEDS: metFORMIN HCl ER 750 MG TAB.ER.24H PO (09:29)
[2023-10-20] MEDS: SITagliptin Phosphate 50 MG TABLET PO (09:29)
[2023-10-20] MEDS: Escitalopram Oxalate 10 MG TABLET PO (09:29)
[2023-10-20] MEDS: Atorvastatin Calcium 10 MG TABLET PO (09:29)
[2023-10-20] MEDS: PT OWN (Cyclosporine [Restasis] 0.05 % Dropperette) 1 EACH EYE-BOTH (09:38)
[2023-10-20] MEDS: Spironolactone 25 MG TABLET 12.5 MG PO (09:39)
== END 2023-10-20 16:42 | disposition home or self-care (01) | DRG 57 ==
LOC: HO.ED 10-05 11:06 → HO.PGERI 10-05 12:03
PROVIDERS: Physician Assistant; Admitting Provider Social Worker; Emergency Provider Internal Medicine; Visit Provider Social Worker
DX: G30.9 Alzheimer's disease, unspecified (principal); F02.82 Dementia in other diseases classified elsewhere, unspecified severity, with psychotic disturbance; F01.52 Vascular dementia, unspecified severity, with psychotic disturbance; Z79.899 Other long term (current) drug therapy
CPT/HCPCS: 36415; 70450; 80053; 80061; 80307; 81003; 82565; 82607; 82746; 82947; 84443; 85025; 93005; 99285; S9485

== ENCOUNTER → 2023-10-04 07:44 | Outpatient (BNV) | payer MEDICARE, SELFPAY | PROVIDERS: Emergency Provider Internal Medicine; Visit Provider Internal Medicine | DX: R94.31 Abnormal electrocardiogram [ECG] [EKG] (principal) | CPT/HCPCS: 93010 ==

== ENCOUNTER → 2023-10-05 12:02 | Outpatient (BNV) | payer MEDICARE, SELFPAY | PROVIDERS: Admitting Provider Social Worker; Emergency Provider Internal Medicine; Visit Provider Psychiatry & Neurology Psychiatry | DX: F22 Delusional disorders (principal); G31.84 Mild cognitive impairment of uncertain or unknown etiology | CPT/HCPCS: 90792; 99231; 99232; 99238 ==

== ENCOUNTER 2023-12-07 20:06 | Inpatient (IN) | payer MEDICARE, SELFPAY ==
[2023-12-07 20:26] VITALS: BP 152/48; BP 164/105; PULSE 77; PULSE 92; RESP 17; TEMP 36.4; O2SAT 100; BMI 28.0
[2023-12-07 20:28] VITALS: BP 152/48; PULSE 77; RESP 17; TEMP 36.4
--- NOTE | 2023-12-07 20:42 | MHC.CARE ---
Pt evaluated by N in the community and will fax evaluation to CARE Team when completed. Disposition is for inpatient level of care at this time.
--- NOTE | 2023-12-07 21:54 | ED_ITS ---
HPI - General Adult General Chief complaint: Behavioral Concerns Stated complaint: sect 12. brief psychotic disorder Time Seen by Provider: 12/07/23 20:57 Source: patient and EMS Mode of arrival: EMS Limitations: no limitations History of Present Illness ED Provider: Dr. Eileen Barreto HPI narrative: Patient comes to the emergency room via ambulance from home. Patient states that she was at home taking a nap and the next thing that she knows, [facility] was in her house with an ambulance pulling her out of her house. Patient states that she recognizes that she has been having trouble with her , patient asked the patient to leave yesterday the house. Patient's went to their daughter's house. Patient states that somebody falsely accused her of being suicidal. Patient states that she believes this has something to do with her leaving the house, going to talk to their daughter, the daughter becoming upset, and them calling the primary care physician telling them that the patient is making suicidal statements. Patient states that the argument with her was about letting 1 of their home aides go. Patient states that they paid is 830 hours/hour, works from 08:00 to 16:00 in the house. The aid sits in their house in the couch use waiting to change the patient's diaper. Patient states that her fpc found is running out of money quickly due to the high cost of home aides. Patient told her that she does not need to have an aide in her house so many hours doing nothing other than waiting around to change diapers. Overall, patient states that she has never in her life made any suicidal or homicidal statements. Patient states that she is concerned that her daughter's behavior has changed significantly towards her after a power of attorney general was signed and the patient's house was placed under her daughter's name. Patient adamant that she is not SI or HI Related Data Home Medications ?Medication ?Instructions ?Recorded ?Confirmed metformin 500 mg tablet,extended 750 mg PO BEDTIME 12/07/23 12/07/23 release 24 hr zolpidem 5 mg tablet 5 mg PO BEDTIME 12/07/23 12/07/23 Previous Rx's ?Medication ?Instructions ?Recorded acetaminophen 325 mg tablet 650 mg (2 x 325 mg) PO Q6H PRN 10/20/23 Headache/Pain Mild Scale (1-3) 30 days #60 tabs allopurinol 100 mg tablet 100 mg PO DAILY 30 days #30 tabs 10/20/23 cholecalciferol (vitamin D3) 25 25 mcg PO DAILY 30 days #30 tabs 10/20/23 mcg (1,000 unit) tablet cholestyramine (with sugar) 4 gram 4 g PO DAILY #60 ea 10/20/23 powder for susp in a packet cyclosporine 0.05 % eye drops in a 1 drp ophthalmic (eye) DAILY #30 ea 10/20/23 dropperette (Restasis) diphenoxylate-atropine 2.5 1 tab PO DAILY PRN Diarrhea 30 10/20/23 mg-0.025 mg tablet (Lomotil) days #30 tabs donepezil 5 mg tablet 5 mg PO BEDTIME 30 days #30 tabs 10/20/23 escitalopram oxalate 10 mg tablet 10 mg PO DAILY 30 days #30 tabs 10/20/23 levothyroxine 88 mcg tablet 88 mcg PO DAILY 30 days #30 tabs 10/20/23 lorazepam 0.5 mg tablet 0.5 mg PO DAILY anxiety 30 days 10/20/23 #30 tabs memantine 5 mg tablet 5 mg PO DAILY 30 days #30 tabs 10/20/23 metoprolol succinate 25 mg 25 mg PO DAILY 30 days #30 tabs 10/20/23 tablet,extended release 24 hr simvastatin 10 mg tablet 10 mg PO BEDTIME 30 days #30 tabs 10/20/23 sitagliptin phosphate 100 mg 100 mg PO DAILY #30 tabs 10/20/23 tablet (Januvia) spironolactone 25 mg tablet 12.5 mg (1/2 x 25 mg) PO DAILY 30 10/20/23 days #15 tabs Allergies Allergy/AdvReac Type Severity Reaction Status Date / Time codeine Allergy Unknown Verified 12/07/23 20:27 Review of Systems 2 Review of Systems: Constitutional : No Weight loss, No Fever, No Chills, No Night Sweats, No Fatigue, No Malaise ENT/Mouth : No Hearing loss, No Ear Pain, No Nasal Congestion, No Sinus Pain, No Hoarseness, No sore throat, No Rhinorrhea, No Swallowing Difficulty Eyes: No Eye Pain, No Swelling, No Redness, No Foreign Body, No Discharge, No Vision Changes Cardiovascular : No Chest Pain, No SOB, No Dyspnea on Exertion, No Orthopnea, No Edema, No Palpitations Respiratory : No Cough, No Sputum, No Wheezing, No Smoke Exposure, No Dyspnea Gastrointestinal : No Nausea, No Vomiting, No Diarrhea, No Constipation, No abdominal Pain, No Hematochezia, No Melena Genitourinary : no irregular bleeding, No Dysuria, No Urinary Frequency, No Hematuria, No Urinary Incontinence, No Urgency, No Flank Pain, No Urinary Flow Changes, No Hesitancy Musculoskeletal : No joint pain, No Myalgias, No Joint Swelling Skin : No Skin Lesions, No rash Neuro : No Weakness, No Numbness, No Paresthesias, No Loss of Consciousness, No Dizziness, No Headache Psych : No Anxiety/Panic, No Depression, No SI/HI/AH/VH, No Social Issues, Heme/Lymph: No Bruising, No Bleeding,No Lymphadenopathy Endocrine : No Polyuria, No Polydipsia, No Temperature Intolerance [facility] Past Medical History Medical History (Updated 12/07/23 @ 22:11 by Eileen Barreto MD) Dementia with psychotic disturbance Social History Social History Household Members: Spouse Housing: House Do you presently have visiting nurse or other home services: Yes Patient Tobacco Use Status: Never used Tobacco Smoked in Last 30 Days: No Use of substances other than those prescribed or required for medical reasons: No Advance Directives: No Advance Directives Information Provided: No Do you have a plan to hurt others: No Plan service: No Sexual orientation: Straight/Heterosexual Physical Exam ED Vital Signs: Vital Signs - 24 hr 12/07/23 20:26 12/07/23 20:28 12/08/23 01:56 Temperature 97.6 F 97.6 F 98.5 F Pulse Rate 77 77 89 Respiratory Rate 17 17 17 Blood Pressure 152/48 H 152/48 H 128/50 L Pulse Oximetry 100 98 Oxygen Delivery Method Room Air Room Air BMI result Body Mass Index 28.0 Const Other: Appearance: Alert. Oriented X3. No acute distress. Eyes: Pupils equal, round and reactive to light. ENT: Pharynx normal. Neck: Normal inspection. Neck supple. No lymph nodes noted. No crepitus CVS: Normal heart rate and rhythm. Pulses normal. Normal S1 and S2 Respiratory: No respiratory distress. Breath sounds normal. No Wheezing. No rales Abdomen: Soft and nontender. No rigidity. No distention. Skin: Skin warm and dry. Normal skin color. Normal skin turgor. Extremities: No lower extremity edema. No Lacerations. No Rash Neuro: Oriented X 3. No motor deficit. No sensory deficit. Moving all extremities. No slurred speech. CN 2 through 12 grossly intact Psych: calm, cooperative, normal affect Course Course Course Narrative: -patient is awake, alert and oriented x3. -all of patient's labs pending -care team consult pending Medical Decision Making Medical Decision Making [facility] Narrative: -I reviewed patient's discharge summary from 10/12/2027, patient treated for paranoid delusions, mild cognitive impairment -my interpretation of labs: Patient's white blood cell count 11.7, chronic, hematology at baseline. No significant abnormality and chemistry, normal sodium, normal LFTs. Patient has trace leukocyte esterase with no UTI symptoms. ETOH and U tox negative -care team consult pending Differential Diagnosis Differential Diagnoses: The differential diagnosis associated with the presentation includes (Paranoid delusions, family problems) Admission/Observation Consideration of admission/observation: Escalation of care including admission/observation considered (Care team consult pending) Lab Data 12/07/23 22:16 12/07/23 22:16 Labs: Lab Results 12/07/23 12/07/23 12/07/23 Range/Units 22:16 22:34 23:50 WBC 11.7 H (4.8-10.8) X10*3/uL RBC 4.53 (4.20-5.50) X10*6/uL Hgb 14.2 (12.0-16.0) g/dl Hct 40.9 (37.0-47.0) % MCV 90.3 (80.0-98.0) fL MCH 31.3 (27.0-33.0) pg MCHC 34.7 (31.0-35.0) g/dl RDW 14.9 (11.0-16.0) % Plt Count 176 (160-400) X10*3/uL MPV 9.1 L (9.4-12.3) fL Immature Gran % (Auto) 0.3 (0.0-0.4) % Neut % (Auto) 75.6 H (45-73) % Lymph % (Auto) 16.4 L (20-40) % [place] % (Auto) 5.0 (2-11) % Eos % (Auto) 1.9 (0-4) % Baso % (Auto) 0.8 (0-2) % Lymph # (Auto) 1.9 (1.2-4.9) X10*3/uL [place] # (Auto) 0.6 (0.1-1.2) X10*3/uL Eos # (Auto) 0.2 (0.0-0.4) X10*3/uL Baso # (Auto) 0.1 (0.0-0.2) X10*3/uL Abs Immat Gran (auto) 0.03 (0.00-0.03) X10*3/uL Absolute Neuts (auto) 8.9 H (2.0-8.3) x10*3/uL Absolute Nucleated RBC 0.000 (0.0-0.012) X10*3/uL Nucleated RBC % (auto) 0.0 (0.0-0.2) /100WBC Sodium 140 (135-145) mmol/L Potassium 4.5 (3.3-5.1) mmol/L Chloride 108 (96-108) mmol/L Carbon Dioxide 21 L (22-29) mmol/L Anion Gap 16 (12-20) BUN 26 H (9-16) mg/dL Creatinine 1.09 (0.5-1.4) mg/dL Estim Creat Clear Calc 39.2 Estimated GFR 48 POC Glucose 94 (60-115) mg/dL Random Glucose 116 H (60-115) mg/dL Calcium 10.5 H (8.4-10.2) mg/dL Total Bilirubin 0.4 (0.0-1.0) mg/dL Direct Bilirubin 0.2 (0.0-0.5) mg/dL AST 12 (5-31) U/L ALT 13 (0-31) U/L Alkaline Phosphatase 91 (39-117) U/L Total Protein 6.8 (6.5-8.0) g/dL Albumin 4.0 (3.5-5.0) g/dL Urine Color Yellow Urine Appearance Clear Urine pH 6.0 (5.0-9.0) Ur Specific [place] 1.015 (1.005-1.025) Urine Protein Negative (Neg-Trace) mg/dL Urine Glucose (UA) Negative (Negative) mg/dL Urine Ketones Negative (Negative) mg/dL Urine Blood Negative (Negative) Urine Nitrite Negative (Negative) Ur Leukocyte Esterase Trace H (Negative) Urine RBC 0-2 (0-2) /HPF Urine WBC 0-5 (0-5) /HPF Ur Squamous Epith Cells 0-2 (0-2) /HPF Urine Bacteria Trace (None Seen) Hyaline Casts 0-2 (0-2) /LPF Urine Opiates Screen Not Detected (Not Detect) Ur Buprenorphine Scrn Not Detected (Not Detect) ng/mL Ur Oxycodone Screen Not Detected (Not Detect) ng/mL Urine Methadone Screen Not Detected (Not Detect) ng/mL Urine Fentanyl Screen Not Detected (Not Detect) Ur Barbiturates Screen Not Detected (Not Detect) Ur Phencyclidine Scrn Not Detected (Not Detect) Ur Amphetamines Screen Not Detected (Not Detect) U Benzodiazepines Scrn Not Detected (Not Detect) Urine Cocaine Screen Not Detected (Not Detect) U Marijuana (THC) Screen Not Detected (Not Detect) Ethyl Alcohol < 10 mg/dL Critical Care Time Critical Care Time Critical Care Time: Yes Total Critical Care Time: 30 Attestation: I have personally provided critical care time. Time includes review of lab data, radiology results, discussion with consultants, and monitoring for potential decompensation. Intervention performed as documented. Discharge Plan Discharge Clinical Impression: Paranoid delusion Patient Disposition: Still a Patient Prescriptions: No Action metformin 500 mg tablet extended release 24 hr 750 mg PO BEDTIME zolpidem 5 mg Tablet 5 mg PO BEDTIME donepezil 5 mg Tablet 5 mg PO BEDTIME 30 Days Qty: 30 0RF acetaminophen 325 mg Tablet 650 mg PO Q6H PRN (Reason: Headache/Pain Mild Scale (1-3)) 30 Days Qty: 60 0RF memantine 5 mg Tablet 5 mg PO DAILY 30 Days Qty: 30 0RF cholecalciferol (vitamin D3) 25 mcg (1,000 unit) Tablet 25 mcg PO DAILY 30 Days Qty: 30 0RF simvastatin 10 mg tablet 10 mg PO BEDTIME 30 Days Qty: 30 0RF diphenoxylate-atropine [Lomotil] 2.5-0.025 mg Tablet 1 tab PO DAILY PRN (Reason: Diarrhea) 30 Days Qty: 30 0RF allopurinol 100 mg tablet 100 mg PO DAILY 30 Days Qty: 30 0RF spironolactone 25 mg tablet 12.5 mg PO DAILY 30 Days Qty: 15 0RF levothyroxine 88 mcg tablet 88 mcg PO DAILY 30 Days Qty: 30 0RF lorazepam 0.5 mg tablet 0.5 mg PO DAILY 30 Days Qty: 30 0RF metoprolol succinate 25 mg tablet extended release 24 hr 25 mg PO DAILY 30 Days Qty: 30 0RF escitalopram oxalate 10 mg tablet 10 mg PO DAILY 30 Days Qty: 30 0RF cyclosporine [Restasis] 0.05 % Dropperette 1 drp OPHTHALMIC (EYE) DAILY Qty: 30 0RF cholestyramine (with sugar) 4 gram Powder In Packet 4 g PO DAILY Qty: 60 0RF Rx Instructions: mix in 4oz of liq administer w/meal; avoid other meds within 1hr before or 4- 6hr after dose Januvia 100 mg Tablet 100 mg PO DAILY Qty: 30 0RF Print Language: Malay
[2023-12-07 22:19] LABS: MANUAL DIFF FLAG NO
[2023-12-07 22:20] LABS: Basophils Absolute Auto 0.1 X10*3/uL (0.0-0.2); Basophils Percent Auto 0.8 % (0-2); Eosinophils Absolute Auto 0.2 X10*3/uL (0.0-0.4); Eosinophils Percent Auto 1.9 % (0-4); Hematocrit 40.9 % (37.0-47.0); Hemoglobin 14.2 g/dl (12.0-16.0); Imm Gran Abs Auto 0.03 X10*3/uL (0.00-0.03); Imm Gran Pct Auto 0.3 % (0.0-0.4); Lymphocytes Absolute Auto 1.9 X10*3/uL (1.2-4.9); Lymphocytes Percent Auto 16.4 % (20-40); Mean Corpuscular HGB Conc 34.7 g/dl (31.0-35.0); Mean Corpuscular Hemoglobin 31.3 pg (27.0-33.0); Mean Corpuscular Volume 90.3 fL (80.0-98.0); Mean Platelet Volume 9.1 fL (9.4-12.3); Monocytes Absolute Auto 0.6 X10*3/uL (0.1-1.2); Neutrophils Absolute Auto 8.9 x10*3/uL (2.0-8.3); Neutrophils Percent Auto 75.6 % (45-73); Platelet Count 176 X10*3/uL (160-400); Red Blood Count 4.53 X10*6/uL (4.20-5.50); Red Cell Distribution Width 14.9 % (11.0-16.0); White Blood Count 11.7 X10*3/uL (4.8-10.8)
[2023-12-07 22:43] LABS: Appearance Urine Clear; Color Urine Yellow; Glucose Urine UA Negative (Negative); Leukocyte Esterase Urine Trace (Negative); Nitrite Urine Negative (Negative); Specific Gravity - Urine 1.015 (1.005-1.025); UMIC TRIGGER UACC YES; Urine Blood Negative (Negative); Urine Ketones Negative (Negative); Urine Protein Negative (Neg-Trace)
[2023-12-07 22:43] LABS: Alanine Aminotransferase 13 U/L (0-31); Alkaline Phosphatase 91 U/L (39-117); Anion Gap 16 (12-20); Aspartate Amino Transferase 12 U/L (5-31); Bilirubin Direct 0.2 mg/dL (0.0-0.5); Bilirubin Total 0.4 mg/dL (0.0-1.0); Blood Urea Nitrogen 26 mg/dL (9-16); Calcium 10.5 mg/dL (8.4-10.2); Carbon Dioxide 21 mmol/L (22-29); Chloride 108 mmol/L (96-108); Creatinine Clr Calc Pharmacy 39.2; Estimated Glomerular Filt Rate 48; Ethanol < 10 mg/dL; Glucose Random 116 mg/dL (60-115); Potassium 4.5 mmol/L (3.3-5.1); Sodium 140 mmol/L (135-145); Total Protein 6.8 g/dL (6.5-8.0)
[2023-12-07 22:51] LABS: Amphetamine Screen Urine Not Detected (Not Detect); Barbiturates, Urine Not Detected (Not Detect); Benzodiazepines Screen Urine Not Detected (Not Detect); Buprenorphine Scr Not Detected (Not Detect); Cannabinoid Screen Urine Not Detected (Not Detect); Cocaine Screen Urine Not Detected (Not Detect); Fentanyl, urine Not Detected (Not Detect); Methadone Screen, Urine Not Detected (Not Detect); Opiate Screen Urine Not Detected (Not Detect); Oxycodone Screen Urine Not Detected (Not Detect); Phencyclidine Screen Urine Not Detected (Not Detect)
[2023-12-07 23:02] LABS: Bacteria Urine Trace (None Seen); Hyaline Casts Urine 0-2 /LPF (0-2); RBC Urine 0-2 /HPF (0-2); Squamous Epithelial Cell Urine 0-2 /HPF (0-2); WBC Urine 0-5 /HPF (0-5)
--- NOTE | 2023-12-07 23:48 | PC.NURSE ---
patient given sandwich and water per her request.
[2023-12-07 23:53] LABS: Glucose, Whole Blood 94 mg/dL (60-115)
[2023-12-08] VITALS (7 sets, daily range): BP systolic 115–154; BP diastolic 46–71; PULSE 61–89; RESP 14–18; TEMP 36.1–36.9; O2SAT 94–99
--- NOTE | 2023-12-08 | ECG_ITS ---
Test Reason : admission Blood Pressure : / mmHG Vent. Rate : 063 BPM Atrial Rate : 063 BPM P-R Int : 208 ms QRS Dur : 082 ms QT Int : 412 ms P-R-T Axes : 037 -28 072 degrees QTc Int : 421 ms Normal sinus rhythm Nonspecific T wave abnormality Inferior infarct (cited on or before 04-OCT-2023) Possible Anterior infarct (cited on or before 04-OCT-2023) Abnormal ECG When compared with ECG of 04-OCT-2023 10:05, Nonspecific T wave abnormality no longer evident in Anterior leads Nonspecific T wave abnormality now evident in Lateral leads Referred By: Eileen Barreto Electronically Signed By:DELMER OGLESBY
[2023-12-08 09:57] LABS: Glucose, Whole Blood 100 mg/dL (60-115)
--- NOTE | 2023-12-08 10:15 | PC.NURSE ---
BS 100, eating breakfast at this time, denies SI/H, 1:1 at bedside
--- NOTE | 2023-12-08 14:48 | PC.NURSE ---
Patient to be admitted to S1
--- NOTE | 2023-12-08 15:58 | PHA.MEDREC ---
Addendum entered by Kerry Hernandez RPh 12/08/23 16:41: reviewed by [facility]. Original Note: Pharmacy Consult ? Medication Reconciliation Pharmacy has completed the medication reconciliation.spoke to patient to confirm med list, however patient was a poor historian she didn't know what she takes. patient sated to call her or her daughter. Called left voicemail 01-08-24@ 3:20pm. Spoke with daughter over the phone. Daughter states she sent a list with patient. Informed daughter that some of the medications on the list don't match up to claims. when asked for her to clarify the medication she said I'm not sure of the dosing because I wrote the list quick. Go by what claims states,Also she was just [place] [facility] and there are no changes in meds since. So, Utilized claims to confirm med list.
--- NOTE | 2023-12-08 18:00 | HO.PSYADMNOT ---
HPI Date of Service: 12/08/23 Chief Complaint: psychosis Sources of Information: patient interviewed, chart reviewed and crisis/core team assessment reviewed HPI Subjective Notes: Guerra Warning (shows understanding) and Conditional Voluntary Narrative: Mrs. Jin is a 83 year-old woman who was brought via EMS after [facility] conducted assessment due to patient expressing suicidal ideation. It is unclear when did this statement took place as in the ED, pt adamantly denies any suicidal or homicidal ideation. She also adds that she is Mu-Ism and this would be against her spiritual believes. Pt is known to through one prior admission when pt presented with months long hx of delusions related to thinking that was having an affair with [facility], also at that time pt suspected that nurse had moved into her house and was hiding in the attic and she could hear her mostly at night. At that time, pt was diagnosed with vascular dementia and common delusion of spouse having an affair even without evidence of it is common in this type of dementia. Labs include CBC with slightly elevated WBC 11. afebrile, no signs of active infection. CMP with elevated BUN 28, but baseline creatinine, most likely related to dehydration. UA with trace of leukocytes but no other indication of UTI. Pt seen on the unit. She presents as calm and cooperative. She reports she suspect it was [facility]NA (new one, not the one she suspects has affair with ) must have called [facility] as she did not report suicidal ideation. She requested prn ativan and suspects his night time nurse thinks this may be indication of suicidality. She does continue to believe that is having an affair, even though at times she does say that she has no evidence of it. She does report she asked her to leave the house and now is willing to take him back because he proposed to have a polygraph test to proof to her that he is not having an affair. She also suspects her daughter is treating her differently, in part because she does not side with her in her accusation of her having an affair and because she suspects her behavior changed after she appointed her as her power of assistant attorney general. She denies SI/HI. Past Psychiatric History: INpt: S1 2023 for same presentation. OP: sees Dr. Anjel Haley for depression, no prior hx of delusions or psychosis. 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 She has two adult children. Substance History: none Trauma History: not disclosed Diagnostics Vital Signs (24Hr): Vital Signs - 24 hr 12/07/23 20:26 12/07/23 20:28 12/08/23 01:56 Temperature 97.6 F 97.6 F 98.5 F Pulse Rate 77 77 89 Respiratory Rate 17 17 17 Blood Pressure 152/48 H 152/48 H 128/50 L Pulse Oximetry 100 98 Oxygen Delivery Method Room Air Room Air 12/08/23 06:29 12/08/23 08:16 12/08/23 12:59 Temperature 98.3 F 98 F Pulse Rate 74 72 77 Respiratory Rate 17 16 16 Blood Pressure 128/57 L 128/71 154/65 H Pulse Oximetry 98 98 95 Oxygen Delivery Method Room Air Room Air Room Air 12/08/23 14:14 Temperature 98.5 F Pulse Rate 69 Respiratory Rate 14 Blood Pressure 115/46 L Pulse Oximetry 94 Oxygen Delivery Method Room Air BMI result Body Mass Index 28.0 Labs 12/07/23 22:16 12/09/23 06:32 Labs: Laboratory Results - last 48 hr 12/07/23 12/07/23 12/07/23 22:16 22:34 23:50 WBC 11.7 H RBC 4.53 Hgb 14.2 Hct 40.9 MCV 90.3 MCH 31.3 MCHC 34.7 RDW 14.9 Plt Count 176 MPV 9.1 L Immature Gran % (Auto) 0.3 Neut % (Auto) 75.6 H Lymph % (Auto) 16.4 L [place] % (Auto) 5.0 Eos % (Auto) 1.9 Baso % (Auto) 0.8 Lymph # (Auto) 1.9 [place] # (Auto) 0.6 Eos # (Auto) 0.2 Baso # (Auto) 0.1 Abs Immat Gran (auto) 0.03 Absolute Neuts (auto) 8.9 H Absolute Nucleated RBC 0.000 Nucleated RBC % (auto) 0.0 Sodium 140 Potassium 4.5 Chloride 108 Carbon Dioxide 21 L Anion Gap 16 BUN 26 H Creatinine 1.09 Estim Creat Clear Calc 39.2 Estimated GFR 48 POC Glucose 94 Random Glucose 116 H Calcium 10.5 H Total Bilirubin 0.4 Direct Bilirubin 0.2 AST 12 ALT 13 Alkaline Phosphatase 91 Total Protein 6.8 Albumin 4.0 Urine Color Yellow Urine Appearance Clear Urine pH 6.0 Ur Specific [place] 1.015 Urine Protein Negative Urine Glucose (UA) Negative Urine Ketones Negative Urine Blood Negative Urine Nitrite Negative Ur Leukocyte Esterase Trace H Urine RBC 0-2 Urine WBC 0-5 Ur Squamous Epith Cells 0-2 Urine Bacteria Trace Hyaline Casts 0-2 Urine Opiates Screen Not Detected Ur Buprenorphine Scrn Not Detected Ur Oxycodone Screen Not Detected Urine Methadone Screen Not Detected Urine Fentanyl Screen Not Detected Ur Barbiturates Screen Not Detected Ur Phencyclidine Scrn Not Detected Ur Amphetamines Screen Not Detected U Benzodiazepines Scrn Not Detected Urine Cocaine Screen Not Detected U Marijuana (THC) Screen Not Detected Ethyl Alcohol < 10 12/08/23 09:53 WBC RBC Hgb Hct MCV MCH MCHC RDW Plt Count MPV Immature Gran % (Auto) Neut % (Auto) Lymph % (Auto) [place] % (Auto) Eos % (Auto) Baso % (Auto) Lymph # (Auto) [place] # (Auto) Eos # (Auto) Baso # (Auto) Abs Immat Gran (auto) Absolute Neuts (auto) Absolute Nucleated RBC Nucleated RBC % (auto) Sodium Potassium Chloride Carbon Dioxide Anion Gap BUN Creatinine Estim Creat Clear Calc Estimated GFR POC Glucose 100 Random Glucose Calcium Total Bilirubin Direct Bilirubin AST ALT Alkaline Phosphatase Total Protein Albumin Urine Color Urine Appearance Urine pH Ur Specific [place] Urine Protein Urine Glucose (UA) Urine Ketones Urine Blood Urine Nitrite Ur Leukocyte Esterase Urine RBC Urine WBC Ur Squamous Epith Cells Urine Bacteria Hyaline Casts Urine Opiates Screen Ur Buprenorphine Scrn Ur Oxycodone Screen Urine Methadone Screen Urine Fentanyl Screen Ur Barbiturates Screen Ur Phencyclidine Scrn Ur Amphetamines Screen U Benzodiazepines Scrn Urine Cocaine Screen U Marijuana (THC) Screen Ethyl Alcohol Meds/Allergies Meds Home Medications ?Medication ?Instructions ?Recorded ?Confirmed ?Type metformin 500 mg tablet,extended 750 mg PO BEDTIME 12/07/23 12/07/23 History release 24 hr zolpidem 5 mg tablet 5 mg PO BEDTIME 12/07/23 12/08/23 History amlodipine 5 mg tablet 2.5 mg PO DAILY 12/08/23 12/08/23 History levothyroxine 88 mcg tablet 88 mcg PO DAILY@0600 12/08/23 12/08/23 History lorazepam 0.5 mg tablet 0.5 mg PO DAILY PRN anxiety 12/08/23 12/08/23 History Allergies Allergies Allergy/AdvReac Type Severity Reaction Status Date / Time codeine Allergy Unknown Verified 12/07/23 20:27 Assessment & Plan Assessment & Plan (1) Dementia with psychotic disturbance: Status: Acute Code(s): F03.92 - Unspecified dementia, unspecified severity, with psychotic disturbance Plan Mrs. Jin is a 83 year-old woman with hx of vascular dementia with delusions of having an affair and some paranoid delusions. Some insight that this may not be the case but pt very much believes and takes action based on delusion despite here reporting that it may not be happening. It is unclear report from [facility] as to suicidal ideation. no indication of imminent harm to self or others, but collateral information is pending from family. May consider antipsychotic. PLAN 1. admit to S1, CV, 5 mins checks 2. prn olanzapine, but consider scheduling risperidone 3. obtain collateral information 4. aftercare planning. Patient educated on: diagnosis and medication risk/benefits Reason for continued inpatient stay Substantial Risk for: inability to function Statement Statement: I have reviewed the history and physical and performed a pertinent examination on my patient. No changes have occurred unless specified. If the History and Physical was not performed prior to admission, the Hospitalist's service will be consulted for completing the admission physical. Time Spent With Patient Time: Total time managing care of this patient today ____ minutes.
--- NOTE | 2023-12-08 18:40 | PC.NURSE ---
Kylie was admitted from the POD on a CV at 1730. Affect and mood pleasant and engaged. Denies SI/HI/AVH. Reports this is a misunderstanding after she asked for a lorazepam and her visiting nurse called to report her as suicidal. Family and crisis reports state she fired all of her care workers and kicked her out after believing he was having an affair with one of her workers. Kylie is fully dependant on care as she is bedbound. Skin assessment revealed blanchable redness to bilateral heels. bruising to bilateral arms. No open areas. Keith from ED removed when she arrived on the unit and brief applied. Kylie was agreeable to the admission process and states she is happy to be here as everyone is so nice . She is asking to talk to a doctor so she can 'explain the reasoning behind her admission and be discharged home as her told her on the phone he will take a polygraph.
[2023-12-08] MEDS: Atorvastatin Calcium 10 MG TABLET PO (20:11)
[2023-12-08] MEDS: Donepezil HCl 5 MG TABLET PO (20:11)
[2023-12-08] MEDS: Zolpidem Tartrate 5 MG TABLET PO (20:11)
[2023-12-08] MEDS: metFORMIN HCl ER 750 MG TAB.ER.24H PO (21:11)
[2023-12-08 21:17] LABS: Glucose, Whole Blood 198 mg/dL (60-115)
[2023-12-09] MEDS: Levothyroxine Sodium 88 MCG TABLET PO (06:34)
[2023-12-09 07:06] LABS: Estimated Average Glucose 105 mg/dL; Hemoglobin A1C 117.2582 umol/L; Hemoglobin A1c % 5.3 % (<6.0); Total Hemoglobin (HGBA1C) 3406.4055 umol/L
[2023-12-09 07:06] LABS: Glucose, Whole Blood 111 mg/dL (60-115)
[2023-12-09 07:12] LABS: Alanine Aminotransferase 11 U/L (0-31); Albumin Level 3.8 g/dL (3.5-5.0); Alkaline Phosphatase 81 U/L (39-117); Anion Gap 14 (12-20); Aspartate Amino Transferase 13 U/L (5-31); Bilirubin Total 0.5 mg/dL (0.0-1.0); Blood Urea Nitrogen 28 mg/dL (9-16); Calcium 10.2 mg/dL (8.4-10.2); Carbon Dioxide 21 mmol/L (22-29); Chloride 110 mmol/L (96-108); Cholesterol 153 mg/dL (<200); Creatinine Clr Calc Pharmacy 36.8; Estimated Glomerular Filt Rate 45; Glucose Fasting 116 mg/dL (60-99); HDL Cholesterol 62 mg/dL (>40); LDL Cholesterol Calculated 74 mg/dL (<100); Potassium 4.5 mmol/L (3.3-5.1); Sodium 140 mmol/L (135-145); Total Protein 6.3 g/dL (6.5-8.0); Triglycerides 87 mg/dL (<150)
[2023-12-09 07:40] LABS: Folate 4.4 ng/mL (> or = 4.0); Vitamin B12 307 pg/mL (200-900)
[2023-12-09 08:17] VITALS: BP 158/94; PULSE 81; RESP 17; TEMP 36.3; O2SAT 98
[2023-12-09] MEDS: Memantine HCl 5 MG TABLET PO (08:35)
[2023-12-09] MEDS: Spironolactone 25 MG TABLET 12.5 MG PO (08:35)
[2023-12-09] MEDS: SITagliptin Phosphate 100 MG TABLET PO (08:35)
[2023-12-09] MEDS: Metoprolol Succinate ER 25 MG TAB.ER.24H PO (08:35)
[2023-12-09] MEDS: allopurinoL 100 MG TABLET PO (08:35)
[2023-12-09] MEDS: Escitalopram Oxalate 10 MG TABLET PO (08:35)
[2023-12-09] MEDS: Cholecalciferol (Vitamin D3) 25 MCG TABLET PO (08:36)
[2023-12-09] MEDS: amLODIPine Besylate 5 MG TABLET 2.5 MG PO (08:36)
--- NOTE | 2023-12-09 13:52 | PC.NURSE ---
This afternoon around 11:00 this nurse and another staff member went in to the patient's room to assist her up in the wheelchair for lunch. She stated Oh no, lunch doesn't start until 11:45 and I'm not getting up until later, after that. I'll let you guys know when I'm ready to get up . Patient was informed that lunch actually arrives at 11:30 and that due to staff being out in the milieu assisting everyone during lunch time, it may not be possible to get her up when 'she feels like it' . Patient stated Fine, then I'm not going to eat lunch . This nurse re-approached at 11:25 and asked her again if she wanted to get up for lunch, as it would be arriving in 5 minutes, but Kylie continued to refuse. Patient later in the afternoon reported to the provider that she usually get's up at lunch time to have a BM and that never happened . When asked by this nurse if she needed assistance to use the bathroom she declined and stated I don't have to go to the bathroom? That's not what I said! The communication in this place is terrible! . Patient was also offered to have her hair washed by this nurse, to which she refused, but reported feeling upset that she's going out into the milieu and her hair hasn't been washed . At this time, pt is being approach only when two staff are present due to inconsistencies.
--- NOTE | 2023-12-09 15:22 | HO.PSYCHPN ---
Subjective Subjective Date of Service: 12/09/23 Reason For Visit: psychosis Interim History: hyperverbal, critical, sarcastic, bargaining, denying need to be in hospital. c/o staff not tending to her schedule for making BMs, asking for 3-day notice. denies SI/SIBI/HI. denies being paranoid about yet describes him as recently having been having an affair with one of the home health aides. per staff, SI at home. paranoid re having an affair. taking meds, slept last NOC. Mental Status Exam Mental Status Exam Patient Appearance: Well Grooomed and Appropriate Patient Orientation: Person and Situation Level of Consciousness: Awake and Appropriate Patient Behavior: Talkative and Suspicious Mood Description: Hostile (irritable) Affect Description: Constricted Patient Cognition Impaired: Yes Ability to Follow Directions: Good Speech Pattern: Clear Hallucinations: None Delusions: Not Present Thought Process: Racing Thought Content: positive for Preoccupation Judgement: Fair Diagnostics Vital Signs (24Hr): Vital Signs - 24 hr 12/08/23 18:49 12/08/23 20:00 12/09/23 08:17 Temperature 97.9 F 97 F 97.3 F Pulse Rate 61 87 81 Respiratory Rate 18 16 17 Blood Pressure 138/64 131/63 158/94 H Pulse Oximetry 99 97 98 Oxygen Delivery Method Room Air Room Air Room Air BMI result Body Mass Index 28.0 Labs 12/07/23 22:16 12/09/23 06:32 Labs: Laboratory Results - last 48 hr 12/07/23 12/07/23 12/07/23 22:16 22:34 23:50 WBC 11.7 H RBC 4.53 Hgb 14.2 Hct 40.9 MCV 90.3 MCH 31.3 MCHC 34.7 RDW 14.9 Plt Count 176 MPV 9.1 L Immature Gran % (Auto) 0.3 Neut % (Auto) 75.6 H Lymph % (Auto) 16.4 L [place] % (Auto) 5.0 Eos % (Auto) 1.9 Baso % (Auto) 0.8 Lymph # (Auto) 1.9 [place] # (Auto) 0.6 Eos # (Auto) 0.2 Baso # (Auto) 0.1 Abs Immat Gran (auto) 0.03 Absolute Neuts (auto) 8.9 H Absolute Nucleated RBC 0.000 Nucleated RBC % (auto) 0.0 Sodium 140 Potassium 4.5 Chloride 108 Carbon Dioxide 21 L Anion Gap 16 BUN 26 H Creatinine 1.09 Estim Creat Clear Calc 39.2 Estimated GFR 48 POC Glucose 94 Random Glucose 116 H Fasting Glucose Estimat Average Glucose Hemoglobin A1c % Calcium 10.5 H Total Bilirubin 0.4 Direct Bilirubin 0.2 AST 12 ALT 13 Alkaline Phosphatase 91 Total Protein 6.8 Albumin 4.0 Triglycerides Cholesterol LDL Cholesterol, Calc HDL Cholesterol Vitamin B12 Folate TSH Urine Color Yellow Urine Appearance Clear Urine pH 6.0 Ur Specific [place] 1.015 Urine Protein Negative Urine Glucose (UA) Negative Urine Ketones Negative Urine Blood Negative Urine Nitrite Negative Ur Leukocyte Esterase Trace H Urine RBC 0-2 Urine WBC 0-5 Ur Squamous Epith Cells 0-2 Urine Bacteria Trace Hyaline Casts 0-2 Urine Opiates Screen Not Detected Ur Buprenorphine Scrn Not Detected Ur Oxycodone Screen Not Detected Urine Methadone Screen Not Detected Urine Fentanyl Screen Not Detected Ur Barbiturates Screen Not Detected Ur Phencyclidine Scrn Not Detected Ur Amphetamines Screen Not Detected U Benzodiazepines Scrn Not Detected Urine Cocaine Screen Not Detected U Marijuana (THC) Screen Not Detected Ethyl Alcohol < 10 12/08/23 12/08/23 12/09/23 09:53 21:11 06:32 WBC RBC Hgb Hct MCV MCH MCHC RDW Plt Count MPV Immature Gran % (Auto) Neut % (Auto) Lymph % (Auto) [place] % (Auto) Eos % (Auto) Baso % (Auto) Lymph # (Auto) [place] # (Auto) Eos # (Auto) Baso # (Auto) Abs Immat Gran (auto) Absolute Neuts (auto) Absolute Nucleated RBC Nucleated RBC % (auto) Sodium 140 Potassium 4.5 Chloride 110 H Carbon Dioxide 21 L Anion Gap 14 BUN 28 H Creatinine 1.16 Estim Creat Clear Calc 36.8 Estimated GFR 45 POC Glucose 100 198 H Random Glucose Fasting Glucose 116 H Estimat Average Glucose 105 Hemoglobin A1c % 5.3 Calcium 10.2 Total Bilirubin 0.5 Direct Bilirubin AST 13 ALT 11 Alkaline Phosphatase 81 Total Protein 6.3 L Albumin 3.8 Triglycerides 87 Cholesterol 153 LDL Cholesterol, Calc 74 HDL Cholesterol 62 Vitamin B12 307 Folate 4.4 TSH 2.70 Urine Color Urine Appearance Urine pH Ur Specific [place] Urine Protein Urine Glucose (UA) Urine Ketones Urine Blood Urine Nitrite Ur Leukocyte Esterase Urine RBC Urine WBC Ur Squamous Epith Cells Urine Bacteria Hyaline Casts Urine Opiates Screen Ur Buprenorphine Scrn Ur Oxycodone Screen Urine Methadone Screen Urine Fentanyl Screen Ur Barbiturates Screen Ur Phencyclidine Scrn Ur Amphetamines Screen U Benzodiazepines Scrn Urine Cocaine Screen U Marijuana (THC) Screen Ethyl Alcohol 12/09/23 06:52 WBC RBC Hgb Hct MCV MCH MCHC RDW Plt Count MPV Immature Gran % (Auto) Neut % (Auto) Lymph % (Auto) [place] % (Auto) Eos % (Auto) Baso % (Auto) Lymph # (Auto) [place] # (Auto) Eos # (Auto) Baso # (Auto) Abs Immat Gran (auto) Absolute Neuts (auto) Absolute Nucleated RBC Nucleated RBC % (auto) Sodium Potassium Chloride Carbon Dioxide Anion Gap BUN Creatinine Estim Creat Clear Calc Estimated GFR POC Glucose 111 Random Glucose Fasting Glucose Estimat Average Glucose Hemoglobin A1c % Calcium Total Bilirubin Direct Bilirubin AST ALT Alkaline Phosphatase Total Protein Albumin Triglycerides Cholesterol LDL Cholesterol, Calc HDL Cholesterol Vitamin B12 Folate TSH Urine Color Urine Appearance Urine pH Ur Specific [place] Urine Protein Urine Glucose (UA) Urine Ketones Urine Blood Urine Nitrite Ur Leukocyte Esterase Urine RBC Urine WBC Ur Squamous Epith Cells Urine Bacteria Hyaline Casts Urine Opiates Screen Ur Buprenorphine Scrn Ur Oxycodone Screen Urine Methadone Screen Urine Fentanyl Screen Ur Barbiturates Screen Ur Phencyclidine Scrn Ur Amphetamines Screen U Benzodiazepines Scrn Urine Cocaine Screen U Marijuana (THC) Screen Ethyl Alcohol Medications Medications Current Medications Acetaminophen (Acetaminophen 325 Mg Tablet) 650 mg PO Q6H PRN PRN Reason: Headache/Pain Mild Scale (1-3) Al Hydroxide/Mg Hydroxide (Magnesium Hydrox/Alum Hydrox 30 Ml Oral.Susp) 30 ml PO Q6H PRN PRN Reason: Heartburn/Nausea Allopurinol (Allopurinol 100 Mg Tablet) 100 mg PO DAILY [facility] Last Admin: 12/09/23 08:35 Dose: 100 mg Amlodipine Besylate (Amlodipine Besylate 5 Mg Tablet) 2.5 mg PO DAILY [facility]; Protocol Last Admin: 12/09/23 08:36 Dose: 2.5 mg Atorvastatin Calcium (Atorvastatin Calcium 10 Mg Tablet) 10 mg PO BEDTIME [facility] Last Admin: 12/08/23 20:11 Dose: 10 mg Cholestyramine Resin (Cholestyramine (With Sugar) 4 Gm Powd.Pack) 4 gm PO DAILY [facility] Last Admin: 12/09/23 08:38 Dose: Not Given Diphenoxylate HCl/Atropine (Diphenoxylate/Atrop 2.5/0.025 Tablet) 1 tab PO DAILY PRN PRN Reason: Diarrhea Donepezil HCl (Donepezil Hcl 5 Mg Tablet) 5 mg PO BEDTIME [facility] Last Admin: 12/08/23 20:11 Dose: 5 mg Escitalopram Oxalate (Escitalopram Oxalate 10 Mg Tablet) 10 mg PO DAILY [facility] Last Admin: 12/09/23 08:35 Dose: 10 mg Levothyroxine Sodium (Levothyroxine Sodium 88 Mcg Tablet) 88 mcg PO DAILY@0600 [facility] Last Admin: 12/09/23 06:34 Dose: 88 mcg Lorazepam (Lorazepam 0.5 Mg Tablet) 0.5 mg PO DAILY PRN PRN Reason: anxiety Magnesium Hydroxide (Milk Of Magnesia 30 Ml Oral.Susp) 30 ml PO DAILY PRN PRN Reason: Constipation Memantine (Memantine Hcl 5 Mg Tablet) 5 mg PO DAILY [facility] Last Admin: 12/09/23 08:35 Dose: 5 mg Metformin HCl (Metformin Hcl Er 750 Mg Tab.Er.24h) 750 mg PO BEDTIME [facility] Last Admin: 12/08/23 21:11 Dose: 750 mg Metoprolol Succinate (Metoprolol Succinate Er 25 Mg Tab.Er.24h) 25 mg PO DAILY [facility]; Protocol Last Admin: 12/09/23 08:35 Dose: 25 mg Non-Formulary Medication (Cyclosporine [Restasis]) 1 drop EYE-BOTH DAILY [facility] Olanzapine (Olanzapine 2.5 Mg Tablet) 2.5 mg PO Q4H PRN PRN Reason: agitation/acute psychosis Sitagliptin Phosphate (Sitagliptin Phosphate 100 Mg Tablet) 100 mg PO DAILY [facility] Last Admin: 12/09/23 08:35 Dose: 100 mg Spironolactone (Spironolactone 25 Mg Tablet) 12.5 mg PO DAILY [facility]; Protocol Last Admin: 12/09/23 08:35 Dose: 12.5 mg Trazodone HCl (Trazodone Hcl 50 Mg Tablet) 50 mg PO BEDTIME [facility] PRN PRN Reason: Insomnia Vitamin D (Cholecalciferol (Vitamin D3) 25 Mcg Tablet) 25 mcg PO DAILY [facility] Last Admin: 12/09/23 08:36 Dose: 25 mcg Zolpidem Tartrate (Zolpidem Tartrate 5 Mg Tablet) 5 mg PO BEDTIME [facility] Last Admin: 12/08/23 20:11 Dose: 5 mg Allergies Allergies Allergy/AdvReac Type Severity Reaction Status Date / Time codeine Allergy Unknown Verified 12/07/23 20:27 Assessment & Plan Assessment & Plan (1) Dementia with psychotic disturbance: Status: Acute Code(s): F03.92 - Unspecified dementia, unspecified severity, with psychotic disturbance Plan Mrs. Jin is a 83 year-old woman with hx of vascular dementia with delusions of having an affair and some paranoid delusions. very much believes and takes action based on delusion. It is unclear report from [facility] as to suicidal ideation. no indication of imminent harm to self or others, but collateral information is pending from family. May consider antipsychotic. PLAN 1. admit to S1, CV, 5 mins checks 2. prn olanzapine, but consider scheduling risperidone 3. obtain collateral information 4. aftercare planning. Reason for continued inpatient stay Substantial Risk for: inability to function Time Spent With Patient Time: Total time managing care of this patient today _25___ minutes.
[2023-12-09] MEDS: Atorvastatin Calcium 10 MG TABLET PO (19:52)
[2023-12-09] MEDS: Zolpidem Tartrate 5 MG TABLET PO (19:53)
[2023-12-09] MEDS: metFORMIN HCl ER 750 MG TAB.ER.24H PO (19:53)
[2023-12-09] MEDS: Donepezil HCl 5 MG TABLET PO (19:53)
[2023-12-09 20:00] VITALS: BP 161/79; PULSE 72; RESP 16; TEMP 36.4; O2SAT 96
[2023-12-09 20:45] LABS: Glucose, Whole Blood 166 mg/dL (60-115)
[2023-12-10] MEDS: Levothyroxine Sodium 88 MCG TABLET PO (06:01)
[2023-12-10 06:46] LABS: Glucose, Whole Blood 111 mg/dL (60-115)
[2023-12-10 09:30] VITALS: BP 126/68; PULSE 68; RESP 18; TEMP 36.8; O2SAT 97
[2023-12-10] MEDS: allopurinoL 100 MG TABLET PO (09:58)
[2023-12-10] MEDS: Metoprolol Succinate ER 25 MG TAB.ER.24H PO (09:58)
[2023-12-10] MEDS: Spironolactone 25 MG TABLET 12.5 MG PO (09:59)
[2023-12-10] MEDS: Cholecalciferol (Vitamin D3) 25 MCG TABLET PO (10:00)
[2023-12-10] MEDS: SITagliptin Phosphate 100 MG TABLET PO (10:00)
[2023-12-10] MEDS: Escitalopram Oxalate 10 MG TABLET PO (10:00)
[2023-12-10] MEDS: Cholestyramine (With Sugar) 4 GM POWD.PACK PO (10:00)
[2023-12-10] MEDS: Memantine HCl 5 MG TABLET PO (10:00)
[2023-12-10] MEDS: amLODIPine Besylate 5 MG TABLET 2.5 MG PO (10:03)
[2023-12-10] MEDS: amLODIPine Besylate 2.5 MG TABLET PO (10:14)
--- NOTE | 2023-12-10 15:14 | P.PNPSI_ITS ---
Subjective Subjective Date of Service: 12/10/23 Reason For Visit: psychosis Interim History: bright, cheery, seated at table in the milieu. states something worked for her overnight because she is feeling much better! MD congratulates her on her improvement. per staff, staff splitting last NOC. BPs high. Mental Status Exam Mental Status Exam Patient Appearance: Well Grooomed and Appropriate Patient Orientation: Person and Situation Level of Consciousness: Awake and Appropriate Patient Behavior: Talkative and Cooperative Mood Description: Euphoric Affect Description: Happy Patient Cognition Impaired: Yes Ability to Follow Directions: Good Speech Pattern: Clear Hallucinations: None Delusions: Not Present Thought Process: Racing Thought Content: positive for Preoccupation Judgement: Fair Diagnostics Vital Signs (24Hr): Vital Signs - 24 hr 12/09/23 20:00 12/10/23 09:30 Temperature 97.5 F 98.2 F Pulse Rate 72 68 Respiratory Rate 16 18 Blood Pressure 161/79 H 126/68 Pulse Oximetry 96 97 Oxygen Delivery Method Room Air Room Air BMI result Body Mass Index 28.0 Labs 12/07/23 22:16 12/09/23 06:32 Labs: Laboratory Results - last 48 hr 12/08/23 12/09/23 12/09/23 21:11 06:32 06:52 Sodium 140 Potassium 4.5 Chloride 110 H Carbon Dioxide 21 L Anion Gap 14 BUN 28 H Creatinine 1.16 Estim Creat Clear Calc 36.8 Estimated GFR 45 POC Glucose 198 H 111 Fasting Glucose 116 H Estimat Average Glucose 105 Hemoglobin A1c % 5.3 Calcium 10.2 Total Bilirubin 0.5 AST 13 ALT 11 Alkaline Phosphatase 81 Total Protein 6.3 L Albumin 3.8 Triglycerides 87 Cholesterol 153 LDL Cholesterol, Calc 74 HDL Cholesterol 62 Vitamin B12 307 Folate 4.4 TSH 2.70 12/09/23 12/10/23 19:51 06:39 Sodium Potassium Chloride Carbon Dioxide Anion Gap BUN Creatinine Estim Creat Clear Calc Estimated GFR POC Glucose 166 H 111 Fasting Glucose Estimat Average Glucose Hemoglobin A1c % Calcium Total Bilirubin AST ALT Alkaline Phosphatase Total Protein Albumin Triglycerides Cholesterol LDL Cholesterol, Calc HDL Cholesterol Vitamin B12 Folate TSH Medications Medications Current Medications Acetaminophen (Acetaminophen 325 Mg Tablet) 650 mg PO Q6H PRN PRN Reason: Headache/Pain Mild Scale (1-3) Al Hydroxide/Mg Hydroxide (Magnesium Hydrox/Alum Hydrox 30 Ml Oral.Susp) 30 ml PO Q6H PRN PRN Reason: Heartburn/Nausea Allopurinol (Allopurinol 100 Mg Tablet) 100 mg PO DAILY [facility] Last Admin: 12/10/23 09:58 Dose: 100 mg Amlodipine Besylate (Amlodipine Besylate 5 Mg Tablet) 5 mg PO DAILY [facility]; Protocol Atorvastatin Calcium (Atorvastatin Calcium 10 Mg Tablet) 10 mg PO BEDTIME [facility] Last Admin: 12/09/23 19:52 Dose: 10 mg Cholestyramine Resin (Cholestyramine (With Sugar) 4 Gm Powd.Pack) 4 gm PO DAILY [facility] Last Admin: 12/10/23 10:00 Dose: 4 gm Diphenoxylate HCl/Atropine (Diphenoxylate/Atrop 2.5/0.025 Tablet) 1 tab PO DAILY PRN PRN Reason: Diarrhea Donepezil HCl (Donepezil Hcl 5 Mg Tablet) 5 mg PO BEDTIME [facility] Last Admin: 12/09/23 19:53 Dose: 5 mg Escitalopram Oxalate (Escitalopram Oxalate 10 Mg Tablet) 10 mg PO DAILY [facility] Last Admin: 12/10/23 10:00 Dose: 10 mg Levothyroxine Sodium (Levothyroxine Sodium 88 Mcg Tablet) 88 mcg PO DAILY@0600 [facility] Last Admin: 12/10/23 06:01 Dose: 88 mcg Lorazepam (Lorazepam 0.5 Mg Tablet) 0.5 mg PO DAILY PRN PRN Reason: anxiety Magnesium Hydroxide (Milk Of Magnesia 30 Ml Oral.Susp) 30 ml PO DAILY PRN PRN Reason: Constipation Memantine (Memantine Hcl 5 Mg Tablet) 5 mg PO DAILY [facility] Last Admin: 12/10/23 10:00 Dose: 5 mg Metformin HCl (Metformin Hcl Er 750 Mg Tab.Er.24h) 750 mg PO BEDTIME [facility] Last Admin: 12/09/23 19:53 Dose: 750 mg Metoprolol Succinate (Metoprolol Succinate Er 25 Mg Tab.Er.24h) 25 mg PO DAILY [facility]; Protocol Last Admin: 12/10/23 09:58 Dose: 25 mg Non-Formulary Medication (Cyclosporine [Restasis]) 1 drop EYE-BOTH DAILY [facility] Olanzapine (Olanzapine 2.5 Mg Tablet) 2.5 mg PO Q4H PRN PRN Reason: agitation/acute psychosis Sitagliptin Phosphate (Sitagliptin Phosphate 100 Mg Tablet) 100 mg PO DAILY [facility] Last Admin: 12/10/23 10:00 Dose: 100 mg Spironolactone (Spironolactone 25 Mg Tablet) 12.5 mg PO DAILY [facility]; Protocol Last Admin: 12/10/23 09:59 Dose: 12.5 mg Trazodone HCl (Trazodone Hcl 50 Mg Tablet) 50 mg PO BEDTIME MRX1 PRN PRN Reason: Insomnia Vitamin D (Cholecalciferol (Vitamin D3) 25 Mcg Tablet) 25 mcg PO DAILY [facility] Last Admin: 12/10/23 10:00 Dose: 25 mcg Zolpidem Tartrate (Zolpidem Tartrate 5 Mg Tablet) 5 mg PO BEDTIME [facility] Last Admin: 12/09/23 19:53 Dose: 5 mg Allergies Allergies Allergy/AdvReac Type Severity Reaction Status Date / Time codeine Allergy Unknown Verified 12/07/23 20:27 Assessment & Plan Assessment & Plan (1) Dementia with psychotic disturbance: Status: Acute Code(s): F03.92 - Unspecified dementia, unspecified severity, with psychotic disturbance Plan Mrs. Jin is a 83 year-old woman with hx of vascular dementia with delusions of having an affair and some paranoid delusions. Some insight that this may not be the case but pt very much believes and takes action based on delusion despite here reporting that it may not be happening. It is unclear report from [facility] as to suicidal ideation. no indication of imminent harm to self or others, but collateral information is pending from family. May consider antipsychotic. PLAN 1. admit to S1, CV, 5 mins checks 2. prn olanzapine, but consider scheduling risperidone 3. obtain collateral information 4. aftercare planning. 12/09: norvasc increased from 2.5 mg daily to 5 mg daily as of today due to HTN. POCs DCed as not necessary. Reason for continued inpatient stay Substantial Risk for: inability to function Time Spent With Patient Time: Total time managing care of this patient today __25__ minutes.
[2023-12-10] MEDS: Acetaminophen 325 MG TABLET 650 MG PO (16:42)
--- NOTE | 2023-12-10 17:57 | PC.NURSE ---
Pt up in [facility] for lunch insisting on going back to her room after she finished her meal. Pt stated I have things to take care of she reported she had to go to the bathroom, Podiatry Professor offered patient to use the toilet or bedpan she declined. 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 Pt stayed in her room, declined to come out to community area for dinner. Pt reported sharp back pain and requested Tylenol when development writer asked what level pain she was in she stated You tell me . Pt stated you don't know how to take care of patients.
[2023-12-10 20:00] VITALS: BP 132/60; PULSE 66; RESP 16; TEMP 36.2; O2SAT 97
[2023-12-10] MEDS: Zolpidem Tartrate 5 MG TABLET PO (21:03)
[2023-12-10] MEDS: Atorvastatin Calcium 10 MG TABLET PO (21:03)
[2023-12-10] MEDS: Donepezil HCl 5 MG TABLET PO (21:03)
[2023-12-10 21:14] LABS: Glucose, Whole Blood 111 mg/dL (60-115)
[2023-12-11] MEDS: Levothyroxine Sodium 88 MCG TABLET PO (06:48)
[2023-12-11 07:06] LABS: Glucose, Whole Blood 98 mg/dL (60-115)
[2023-12-11 08:19] VITALS: BP 112/54; PULSE 71; RESP 16; TEMP 36.9; O2SAT 97
[2023-12-11] MEDS: amLODIPine Besylate 5 MG TABLET PO (08:21)
[2023-12-11] MEDS: allopurinoL 100 MG TABLET PO (08:21)
[2023-12-11] MEDS: Spironolactone 25 MG TABLET 12.5 MG PO (08:22)
[2023-12-11] MEDS: SITagliptin Phosphate 100 MG TABLET PO (08:22)
[2023-12-11] MEDS: Metoprolol Succinate ER 25 MG TAB.ER.24H PO (08:22)
[2023-12-11] MEDS: Memantine HCl 5 MG TABLET PO (08:23)
[2023-12-11] MEDS: Cholecalciferol (Vitamin D3) 25 MCG TABLET PO (08:23)
[2023-12-11] MEDS: Escitalopram Oxalate 10 MG TABLET PO (08:23)
[2023-12-11] MEDS: Acetaminophen 325 MG TABLET 650 MG PO (09:10)
--- NOTE | 2023-12-11 13:26 | HO.PSYCHPN ---
Subjective Subjective Date of Service: 12/11/23 Reason For Visit: psychosis Subjective Notes: Conditional Voluntary and 3 Day Interim History: The nursing staff reported the patient signed a 3 day notice, overnight she refused her medications. She slept 8 hours. The occupational therapist reported that her last admission a few weeks ago she scored 3.4 on the [place] test and 17/30 on her [place]. On interview the patient reported that she was doing fine. Limited insight into her condition. Unable to recall how whe ended in the hospitalk, confused Mental Status Exam Mental Status Exam Patient Appearance: Appropriate Patient Orientation: Person and Situation Level of Consciousness: Awake and Appropriate Patient Behavior: Guarded and Passive Mood Description: Withdrawn Affect Description: Constricted Patient Cognition Impaired: Yes Ability to Follow Directions: Good Speech Pattern: Clear Hallucinations: None Delusions: Ideas of Reference Thought Process: Distracted and Slowed Thinking Thought Content: positive for [place] and positive for Circumstantial Judgement: Fair Diagnostics Vital Signs (24Hr): Vital Signs - 24 hr 12/10/23 20:00 12/11/23 08:19 Temperature 97.1 F 98.4 F Pulse Rate 66 71 Respiratory Rate 16 16 Blood Pressure 132/60 112/54 L Pulse Oximetry 97 97 Oxygen Delivery Method Room Air Room Air BMI result Body Mass Index 28.0 Labs 12/07/23 22:16 12/09/23 06:32 Labs: Laboratory Results - last 48 hr 12/09/23 12/10/23 12/10/23 19:51 06:39 21:01 POC Glucose 166 H 111 111 12/11/23 06:50 POC Glucose 98 Medications Medications Current Medications Acetaminophen (Acetaminophen 325 Mg Tablet) 650 mg PO Q6H PRN PRN Reason: Headache/Pain Mild Scale (1-3) Last Admin: 12/11/23 09:10 Dose: 650 mg Al Hydroxide/Mg Hydroxide (Magnesium Hydrox/Alum Hydrox 30 Ml Oral.Susp) 30 ml PO Q6H PRN PRN Reason: Heartburn/Nausea Allopurinol (Allopurinol 100 Mg Tablet) 100 mg PO DAILY [facility] Last Admin: 12/11/23 08:21 Dose: 100 mg Amlodipine Besylate (Amlodipine Besylate 5 Mg Tablet) 5 mg PO DAILY [facility]; Protocol Last Admin: 12/11/23 08:21 Dose: 5 mg Atorvastatin Calcium (Atorvastatin Calcium 10 Mg Tablet) 10 mg PO BEDTIME [facility] Last Admin: 12/10/23 21:03 Dose: 10 mg Cholestyramine Resin (Cholestyramine (With Sugar) 4 Gm Powd.Pack) 4 gm PO DAILY [facility] Last Admin: 12/11/23 08:23 Dose: Not Given Diphenoxylate HCl/Atropine (Diphenoxylate/Atrop 2.5/0.025 Tablet) 1 tab PO DAILY PRN PRN Reason: Diarrhea Donepezil HCl (Donepezil Hcl 5 Mg Tablet) 5 mg PO BEDTIME [facility] Last Admin: 12/10/23 21:03 Dose: 5 mg Escitalopram Oxalate (Escitalopram Oxalate 10 Mg Tablet) 10 mg PO DAILY [facility] Last Admin: 12/11/23 08:23 Dose: 10 mg Levothyroxine Sodium (Levothyroxine Sodium 88 Mcg Tablet) 88 mcg PO DAILY@0600 [facility] Last Admin: 12/11/23 06:48 Dose: 88 mcg Lorazepam (Lorazepam 0.5 Mg Tablet) 0.5 mg PO DAILY PRN PRN Reason: anxiety Magnesium Hydroxide (Milk Of Magnesia 30 Ml Oral.Susp) 30 ml PO DAILY PRN PRN Reason: Constipation Memantine (Memantine Hcl 5 Mg Tablet) 5 mg PO DAILY [facility] Last Admin: 12/11/23 08:23 Dose: 5 mg Metformin HCl (Metformin Hcl Er 750 Mg Tab.Er.24h) 750 mg PO BEDTIME [facility] Last Admin: 12/10/23 21:02 Dose: Not Given Metoprolol Succinate (Metoprolol Succinate Er 25 Mg Tab.Er.24h) 25 mg PO DAILY [facility]; Protocol Last Admin: 12/11/23 08:22 Dose: 25 mg Non-Formulary Medication (Cyclosporine [Restasis]) 1 drop EYE-BOTH DAILY [facility] Olanzapine (Olanzapine 2.5 Mg Tablet) 2.5 mg PO Q4H PRN PRN Reason: agitation/acute psychosis Sitagliptin Phosphate (Sitagliptin Phosphate 100 Mg Tablet) 100 mg PO DAILY [facility] Last Admin: 12/11/23 08:22 Dose: 100 mg Spironolactone (Spironolactone 25 Mg Tablet) 12.5 mg PO DAILY [facility]; Protocol Last Admin: 12/11/23 08:22 Dose: 12.5 mg Trazodone HCl (Trazodone Hcl 50 Mg Tablet) 50 mg PO BEDTIME MRX1 PRN PRN Reason: Insomnia Vitamin D (Cholecalciferol (Vitamin D3) 25 Mcg Tablet) 25 mcg PO DAILY [facility] Last Admin: 12/11/23 08:23 Dose: 25 mcg Zolpidem Tartrate (Zolpidem Tartrate 5 Mg Tablet) 5 mg PO BEDTIME [facility] Last Admin: 12/10/23 21:03 Dose: 5 mg Allergies Allergies Allergy/AdvReac Type Severity Reaction Status Date / Time codeine Allergy Unknown Verified 12/07/23 20:27 Assessment & Plan Assessment & Plan (1) Dementia with psychotic disturbance: Status: Acute Code(s): F03.92 - Unspecified dementia, unspecified severity, with psychotic disturbance Plan Mrs. Jin is a 83 year-old woman with hx of vascular dementia with delusions of having an affair and some paranoid delusions. Some insight that this may not be the case but pt very much believes and takes action based on delusion despite here reporting that it may not be happening. It is unclear report from [facility] as to suicidal ideation. no indication of imminent harm to self or others, but collateral information is pending from family. May consider antipsychotic. PLAN 1. admit to S1, CV, 5 mins checks 2. prn olanzapine, but consider scheduling risperidone 3. obtain collateral information 4. aftercare planning. 5. norvasc increased from 2.5 mg daily to 5 mg daily as of today due to HTN. POCs DCed as not necessary. Reason for continued inpatient stay Substantial Risk for: inability to function, rapid decompensation and med/psych decompensation Time Spent With Patient Time: Total time managing care of this patient today __20__ minutes.
[2023-12-11 20:00] VITALS: BP 131/62; PULSE 62; RESP 16; TEMP 36.2; O2SAT 97
[2023-12-11] MEDS: Zolpidem Tartrate 5 MG TABLET PO (21:08)
[2023-12-11] MEDS: Atorvastatin Calcium 10 MG TABLET PO (21:08)
[2023-12-11] MEDS: metFORMIN HCl ER 750 MG TAB.ER.24H PO (21:08)
[2023-12-11] MEDS: Donepezil HCl 5 MG TABLET PO (21:08)
[2023-12-11 21:22] LABS: Glucose, Whole Blood 130 mg/dL (60-115)
[2023-12-12] MEDS: Levothyroxine Sodium 88 MCG TABLET PO (06:30)
[2023-12-12 06:49] LABS: Glucose, Whole Blood 96 mg/dL (60-115)
[2023-12-12 08:00] VITALS: BP 138/62; PULSE 60; RESP 18; TEMP 36.9; O2SAT 97
[2023-12-12] MEDS: SITagliptin Phosphate 100 MG TABLET PO (08:17)
[2023-12-12] MEDS: Escitalopram Oxalate 10 MG TABLET PO (08:17)
[2023-12-12] MEDS: amLODIPine Besylate 5 MG TABLET PO (08:17)
[2023-12-12] MEDS: allopurinoL 100 MG TABLET PO (08:17)
[2023-12-12] MEDS: Cholecalciferol (Vitamin D3) 25 MCG TABLET PO (08:17)
[2023-12-12] MEDS: Spironolactone 25 MG TABLET 12.5 MG PO (08:17)
[2023-12-12] MEDS: Memantine HCl 5 MG TABLET PO (08:17)
[2023-12-12] MEDS: Metoprolol Succinate ER 25 MG TAB.ER.24H PO (08:24)
--- NOTE | 2023-12-12 12:58 | P.PNPSI_ITS ---
Subjective Subjective Date of Service: 12/12/23 Reason For Visit: psychosis Subjective Notes: Conditional Voluntary Interim History: The nursing staff reported that she retracted her 3 day letter, she was cooperative and confused, she didn't remember how she ended in the hospital. On interview she complained of dysuria, we are ordering a new U/A today. We will try to gather collateral information. Mental Status Exam Mental Status Exam Patient Appearance: Appropriate Patient Orientation: Person and Situation Level of Consciousness: Awake and Appropriate Patient Behavior: Guarded and Passive Mood Description: Calm Affect Description: Constricted Patient Cognition Impaired: Yes Ability to Follow Directions: Good Speech Pattern: Clear Hallucinations: None Delusions: Ideas of Reference Thought Process: Distracted and Slowed Thinking Thought Content: positive for [place] and positive for Poverty of Content Judgement: Fair Diagnostics Vital Signs (24Hr): Vital Signs - 24 hr 12/11/23 20:00 12/12/23 08:00 Temperature 97.1 F 98.4 F Pulse Rate 62 60 Respiratory Rate 16 18 Blood Pressure 131/62 138/62 Pulse Oximetry 97 97 Oxygen Delivery Method Room Air Room Air BMI result Body Mass Index 28.0 Labs 12/07/23 22:16 12/09/23 06:32 Labs: Laboratory Results - last 48 hr 12/10/23 12/11/23 12/11/23 21:01 06:50 21:07 POC Glucose 111 98 130 H 12/12/23 06:31 POC Glucose 96 Medications Medications Current Medications Acetaminophen (Acetaminophen 325 Mg Tablet) 650 mg PO Q6H PRN PRN Reason: Headache/Pain Mild Scale (1-3) Last Admin: 12/11/23 09:10 Dose: 650 mg Al Hydroxide/Mg Hydroxide (Magnesium Hydrox/Alum Hydrox 30 Ml Oral.Susp) 30 ml PO Q6H PRN PRN Reason: Heartburn/Nausea Allopurinol (Allopurinol 100 Mg Tablet) 100 mg PO DAILY [facility] Last Admin: 12/12/23 08:17 Dose: 100 mg Amlodipine Besylate (Amlodipine Besylate 5 Mg Tablet) 5 mg PO DAILY [facility]; Protocol Last Admin: 12/12/23 08:17 Dose: 5 mg Atorvastatin Calcium (Atorvastatin Calcium 10 Mg Tablet) 10 mg PO BEDTIME [facility] Last Admin: 12/11/23 21:08 Dose: 10 mg Cholestyramine Resin (Cholestyramine (With Sugar) 4 Gm Powd.Pack) 4 gm PO DAILY [facility] Last Admin: 12/12/23 08:24 Dose: Not Given Diphenoxylate HCl/Atropine (Diphenoxylate/Atrop 2.5/0.025 Tablet) 1 tab PO DAILY PRN PRN Reason: Diarrhea Donepezil HCl (Donepezil Hcl 5 Mg Tablet) 5 mg PO BEDTIME [facility] Last Admin: 12/11/23 21:08 Dose: 5 mg Escitalopram Oxalate (Escitalopram Oxalate 10 Mg Tablet) 10 mg PO DAILY [facility] Last Admin: 12/12/23 08:17 Dose: 10 mg Levothyroxine Sodium (Levothyroxine Sodium 88 Mcg Tablet) 88 mcg PO DAILY@0600 [facility] Last Admin: 12/12/23 06:30 Dose: 88 mcg Lorazepam (Lorazepam 0.5 Mg Tablet) 0.5 mg PO DAILY PRN PRN Reason: anxiety Magnesium Hydroxide (Milk Of Magnesia 30 Ml Oral.Susp) 30 ml PO DAILY PRN PRN Reason: Constipation Memantine (Memantine Hcl 5 Mg Tablet) 5 mg PO DAILY [facility] Last Admin: 12/12/23 08:17 Dose: 5 mg Metformin HCl (Metformin Hcl Er 750 Mg Tab.Er.24h) 750 mg PO BEDTIME [facility] Last Admin: 12/11/23 21:08 Dose: 750 mg Metoprolol Succinate (Metoprolol Succinate Er 25 Mg Tab.Er.24h) 25 mg PO DAILY [facility]; Protocol Last Admin: 12/12/23 08:24 Dose: 25 mg Olanzapine (Olanzapine 2.5 Mg Tablet) 2.5 mg PO Q4H PRN PRN Reason: agitation/acute psychosis Sitagliptin Phosphate (Sitagliptin Phosphate 100 Mg Tablet) 100 mg PO DAILY [facility] Last Admin: 12/12/23 08:17 Dose: 100 mg Spironolactone (Spironolactone 25 Mg Tablet) 12.5 mg PO DAILY [facility]; Protocol Last Admin: 12/12/23 08:17 Dose: 12.5 mg Trazodone HCl (Trazodone Hcl 50 Mg Tablet) 50 mg PO BEDTIME MRX1 PRN PRN Reason: Insomnia Vitamin D (Cholecalciferol (Vitamin D3) 25 Mcg Tablet) 25 mcg PO DAILY [facility] Last Admin: 12/12/23 08:17 Dose: 25 mcg Zolpidem Tartrate (Zolpidem Tartrate 5 Mg Tablet) 5 mg PO BEDTIME [facility] Last Admin: 12/11/23 21:08 Dose: 5 mg Allergies Allergies Allergy/AdvReac Type Severity Reaction Status Date / Time codeine Allergy Unknown Verified 12/07/23 20:27 Assessment & Plan Assessment & Plan (1) Dementia with psychotic disturbance: Status: Acute Code(s): F03.92 - Unspecified dementia, unspecified severity, with psychotic disturbance Plan Mrs. Jin is a 83 year-old woman with hx of vascular dementia with delusions of having an affair and some paranoid delusions. Some insight that this may not be the case but pt very much believes and takes action based on delusion despite here reporting that it may not be happening. It is unclear report from [facility] as to suicidal ideation. no indication of imminent harm to self or others, but collateral information is pending from family. May consider antipsychotic. PLAN 1. admit to S1, CV, 5 mins checks 2. prn olanzapine, but consider scheduling risperidone 3. obtain collateral information 4. aftercare planning. 5. norvasc increased from 2.5 mg daily to 5 mg daily as of today due to HTN. POCs DCed as not necessary. Reason for continued inpatient stay Substantial Risk for: inability to function, rapid decompensation and med/psych decompensation Time Spent With Patient Time: Total time managing care of this patient today __20__ minutes.
[2023-12-12] MEDS: Acetaminophen 325 MG TABLET 650 MG PO (16:57)
[2023-12-12 20:00] VITALS: BP 144/60; PULSE 66; RESP 16; TEMP 35.6; O2SAT 99
[2023-12-12] MEDS: metFORMIN HCl ER 750 MG TAB.ER.24H PO (21:11)
[2023-12-12] MEDS: Zolpidem Tartrate 5 MG TABLET PO (21:12)
[2023-12-12] MEDS: Atorvastatin Calcium 10 MG TABLET PO (21:12)
[2023-12-12] MEDS: Donepezil HCl 5 MG TABLET PO (21:13)
[2023-12-12 21:46] LABS: Glucose, Whole Blood 131 mg/dL (60-115)
[2023-12-13 05:52] LABS: Appearance Urine Turbid; Color Urine Yellow; Glucose Urine UA Negative (Negative); Leukocyte Esterase Urine Negative (Negative); Nitrite Urine Negative (Negative); PH 5.5 (5.0-9.0); Urine Blood Negative (Negative); Urine Ketones Negative (Negative); Urine Protein Negative (Neg-Trace)
[2023-12-13 06:05] LABS: Bacteria Urine 1+ (None Seen); Hyaline Casts Urine 0-2 /LPF (0-2); RBC Urine 0-2 /HPF (0-2); Squamous Epithelial Cell Urine >20 /HPF (0-2); WBC Urine 0-5 /HPF (0-5)
[2023-12-13] MEDS: Levothyroxine Sodium 88 MCG TABLET PO (06:09)
[2023-12-13] MEDS: LORazepam 0.5 MG TABLET PO (06:17)
[2023-12-13 06:35] LABS: Glucose, Whole Blood 104 mg/dL (60-115)
[2023-12-13 11:19] VITALS: BP 118/57; PULSE 60; RESP 15; TEMP 36.6; O2SAT 97
[2023-12-13] MEDS: Spironolactone 25 MG TABLET 12.5 MG PO (11:21)
[2023-12-13] MEDS: Memantine HCl 5 MG TABLET PO (11:22)
[2023-12-13] MEDS: SITagliptin Phosphate 100 MG TABLET PO (11:22)
[2023-12-13] MEDS: Metoprolol Succinate ER 25 MG TAB.ER.24H PO (11:22)
[2023-12-13] MEDS: Cholecalciferol (Vitamin D3) 25 MCG TABLET PO (11:22)
[2023-12-13] MEDS: allopurinoL 100 MG TABLET PO (11:22)
[2023-12-13] MEDS: Escitalopram Oxalate 10 MG TABLET PO (11:22)
[2023-12-13] MEDS: amLODIPine Besylate 5 MG TABLET PO (11:23)
--- NOTE | 2023-12-13 14:56 | P.PNPSI_ITS ---
Subjective Subjective Date of Service: 12/13/23 Reason For Visit: psychosis Subjective Notes: Conditional Voluntary and 3 Day Interim History: The nursing staff reported the patient had been sarcastic she has called her daughter and she was quite upset after the phone call. The social welfare clerk reported that her daughter wants placement for her, she had been accusatory and paranoid against her , apparently the had been living with children for the last month. On interview, she wanted to be discharged tomorrow, she does not want to recanted her 3 day notice and she is fully aware that we are going to filed for Section 7 and 8. She has poor insight into her condition and her medical limitations. Mental Status Exam Mental Status Exam Patient Appearance: Appropriate Patient Orientation: Person and Situation Level of Consciousness: Awake and Appropriate Patient Behavior: Guarded and Passive Mood Description: Withdrawn Affect Description: Constricted Patient Cognition Impaired: Yes Ability to Follow Directions: Good Speech Pattern: Clear Hallucinations: None Delusions: Paranoid Ideation Thought Process: Distracted and Slowed Thinking Thought Content: positive for [place] and positive for Poverty of Content Judgement: Poor Diagnostics Vital Signs (24Hr): Vital Signs - 24 hr 12/12/23 20:00 12/13/23 11:19 Temperature 96.1 F L 97.8 F Pulse Rate 66 60 Respiratory Rate 16 15 Blood Pressure 144/60 H 118/57 L Pulse Oximetry 99 97 Oxygen Delivery Method Room Air Room Air BMI result Body Mass Index 28.0 Labs 12/07/23 22:16 12/09/23 06:32 Labs: Laboratory Results - last 48 hr 12/11/23 12/12/23 12/12/23 21:07 06:31 21:31 POC Glucose 130 H 96 131 H Urine Color Urine Appearance Urine pH Ur Specific [place] Urine Protein Urine Glucose (UA) Urine Ketones Urine Blood Urine Nitrite Ur Leukocyte Esterase Urine RBC Urine WBC Ur Squamous Epith Cells Urine Bacteria Hyaline Casts 12/13/23 12/13/23 05:15 06:24 POC Glucose 104 Urine Color Yellow Urine Appearance Turbid Urine pH 5.5 Ur Specific [place] 1.020 Urine Protein Negative Urine Glucose (UA) Negative Urine Ketones Negative Urine Blood Negative Urine Nitrite Negative Ur Leukocyte Esterase Negative Urine RBC 0-2 Urine WBC 0-5 Ur Squamous Epith Cells >20 Urine Bacteria 1+ Hyaline Casts 0-2 Medications Medications Current Medications Acetaminophen (Acetaminophen 325 Mg Tablet) 650 mg PO Q6H PRN PRN Reason: Headache/Pain Mild Scale (1-3) Last Admin: 12/12/23 16:57 Dose: 650 mg Al Hydroxide/Mg Hydroxide (Magnesium Hydrox/Alum Hydrox 30 Ml Oral.Susp) 30 ml PO Q6H PRN PRN Reason: Heartburn/Nausea Allopurinol (Allopurinol 100 Mg Tablet) 100 mg PO DAILY [facility] Last Admin: 12/13/23 11:22 Dose: 100 mg Amlodipine Besylate (Amlodipine Besylate 5 Mg Tablet) 5 mg PO DAILY [facility]; Protocol Last Admin: 12/13/23 11:23 Dose: 5 mg Atorvastatin Calcium (Atorvastatin Calcium 10 Mg Tablet) 10 mg PO BEDTIME [facility] Last Admin: 12/12/23 21:12 Dose: 10 mg Cholestyramine Resin (Cholestyramine (With Sugar) 4 Gm Powd.Pack) 4 gm PO DAILY [facility] Last Admin: 12/13/23 11:21 Dose: Not Given Diphenoxylate HCl/Atropine (Diphenoxylate/Atrop 2.5/0.025 Tablet) 1 tab PO DAILY PRN PRN Reason: Diarrhea Donepezil HCl (Donepezil Hcl 5 Mg Tablet) 5 mg PO BEDTIME [facility] Last Admin: 12/12/23 21:13 Dose: 5 mg Escitalopram Oxalate (Escitalopram Oxalate 10 Mg Tablet) 10 mg PO DAILY [facility] Last Admin: 12/13/23 11:22 Dose: 10 mg Levothyroxine Sodium (Levothyroxine Sodium 88 Mcg Tablet) 88 mcg PO DAILY@0600 [facility] Last Admin: 12/13/23 06:09 Dose: 88 mcg Lorazepam (Lorazepam 0.5 Mg Tablet) 0.5 mg PO DAILY PRN PRN Reason: anxiety Last Admin: 12/13/23 06:17 Dose: 0.5 mg Magnesium Hydroxide (Milk Of Magnesia 30 Ml Oral.Susp) 30 ml PO DAILY PRN PRN Reason: Constipation Memantine (Memantine Hcl 5 Mg Tablet) 5 mg PO DAILY [facility] Last Admin: 12/13/23 11:22 Dose: 5 mg Metformin HCl (Metformin Hcl Er 750 Mg Tab.Er.24h) 750 mg PO BEDTIME [facility] Last Admin: 12/12/23 21:11 Dose: 750 mg Metoprolol Succinate (Metoprolol Succinate Er 25 Mg Tab.Er.24h) 25 mg PO DAILY [facility]; Protocol Last Admin: 12/13/23 11:22 Dose: 25 mg Olanzapine (Olanzapine 2.5 Mg Tablet) 2.5 mg PO Q4H PRN PRN Reason: agitation/acute psychosis Sitagliptin Phosphate (Sitagliptin Phosphate 100 Mg Tablet) 100 mg PO DAILY [facility] Last Admin: 12/13/23 11:22 Dose: 100 mg Spironolactone (Spironolactone 25 Mg Tablet) 12.5 mg PO DAILY [facility]; Protocol Last Admin: 12/13/23 11:21 Dose: 12.5 mg Trazodone HCl (Trazodone Hcl 50 Mg Tablet) 50 mg PO BEDTIME MRX1 PRN PRN Reason: Insomnia Vitamin D (Cholecalciferol (Vitamin D3) 25 Mcg Tablet) 25 mcg PO DAILY [facility] Last Admin: 12/13/23 11:22 Dose: 25 mcg Zolpidem Tartrate (Zolpidem Tartrate 5 Mg Tablet) 5 mg PO BEDTIME [facility] Last Admin: 12/12/23 21:12 Dose: 5 mg Allergies Allergies Allergy/AdvReac Type Severity Reaction Status Date / Time codeine Allergy Unknown Verified 12/07/23 20:27 Assessment & Plan Assessment & Plan (1) Dementia with psychotic disturbance: Status: Acute Code(s): F03.92 - Unspecified dementia, unspecified severity, with psychotic disturbance Plan Mrs. Jin is a 83 year-old woman with hx of vascular dementia with delusions of having an affair and some paranoid delusions. Some insight that this may not be the case but pt very much believes and takes action based on delusion despite here reporting that it may not be happening. It is unclear report from [facility] as to suicidal ideation. no indication of imminent harm to self or others, but collateral information is pending from family. May consider antipsychotic. PLAN 1. admit to S1, CV, 5 mins checks 2. prn olanzapine, but consider scheduling risperidone 3. obtain collateral information 4. aftercare planning. 5. norvasc increased from 2.5 mg daily to 5 mg daily as of today due to HTN. POCs DCed as not necessary. 6. Filed for Section 7 and 8 since the patient wants to live in the hospital and she is not ready for discharge yet. 7. Start Rexulti 0.5 p.o. daily for psychosis Reason for continued inpatient stay Substantial Risk for: inability to function, rapid decompensation and med/psych decompensation Time Spent With Patient Time: Total time managing care of this patient today _20___ minutes.
[2023-12-13 20:00] VITALS: BP 139/60; PULSE 68; RESP 16; TEMP 35.6; O2SAT 95
[2023-12-13] MEDS: Atorvastatin Calcium 10 MG TABLET PO (20:40)
[2023-12-13] MEDS: Donepezil HCl 5 MG TABLET PO (20:41)
[2023-12-13] MEDS: Zolpidem Tartrate 5 MG TABLET PO (20:41)
[2023-12-13] MEDS: metFORMIN HCl ER 750 MG TAB.ER.24H PO (20:41)
[2023-12-13 20:59] LABS: Glucose, Whole Blood 173 mg/dL (60-115)
[2023-12-14] MEDS: Levothyroxine Sodium 88 MCG TABLET PO (06:28)
[2023-12-14 06:34] LABS: Glucose, Whole Blood 109 mg/dL (60-115)
[2023-12-14 07:00] VITALS: BMI 28.9
[2023-12-14 08:00] VITALS: BP 127/64; PULSE 52; RESP 16; TEMP 36.2; O2SAT 98
[2023-12-14] MEDS: Memantine HCl 5 MG TABLET PO (08:57)
[2023-12-14] MEDS: amLODIPine Besylate 5 MG TABLET PO (08:57)
[2023-12-14] MEDS: Escitalopram Oxalate 10 MG TABLET PO (08:58)
[2023-12-14] MEDS: Cholecalciferol (Vitamin D3) 25 MCG TABLET PO (08:58)
[2023-12-14] MEDS: Spironolactone 25 MG TABLET 12.5 MG PO (08:58)
[2023-12-14] MEDS: allopurinoL 100 MG TABLET PO (08:58)
[2023-12-14] MEDS: SITagliptin Phosphate 100 MG TABLET PO (08:58)
--- NOTE | 2023-12-14 09:09 | P.PNPSI_ITS ---
Subjective Subjective Date of Service: 12/14/23 Reason For Visit: psychosis Subjective Notes: 3 Day Interim History: Pt slept through the night. She reports she dos not think she needs to be her. But also states, I'm not going to fight that. She does report that she is in agreement to go to LTC facility as she states she knows she need this level of care, but also states it can't be the place I went before, there was a raven there. She reported some bloating- given simethicone with good effect. VS stable. Review of Systems Review of Systems Constitutional : No Weight loss, No Fever, No Chills, No Night Sweats, No Fatigue, No Malaise ENT/Mouth : No Hearing loss, No Ear Pain, No Nasal Congestion, No Sinus Pain, No Hoarseness, No sore throat, No Rhinorrhea, No Swallowing Difficulty Eyes: No Eye Pain, No Swelling, No Redness, No Foreign Body, No Discharge, No Vision Changes Cardiovascular : No Chest Pain, No SOB, No Dyspnea on Exertion, No Orthopnea, No Edema, No Palpitations Respiratory : No Cough, No Sputum, No Wheezing, No Smoke Exposure, No Dyspnea Gastrointestinal : No Nausea, No Vomiting, No Diarrhea, No Constipation, No abdominal Pain, No Hematochezia, No Melena Genitourinary : no irregular bleeding, No Dysuria, No Urinary Frequency, No Hematuria, No Urinary Incontinence, No Urgency, No Flank Pain, No Urinary Flow Changes, No Hesitancy Musculoskeletal : No joint pain, No Myalgias, No Joint Swelling Skin : No Skin Lesions, No rash Neuro : No Weakness, No Numbness, No Paresthesias, No Loss of Consciousness, No Dizziness, No Headache Psych : No Anxiety/Panic, No Depression, No SI/HI/AH/VH, No Social Issues, Heme/Lymph: No Bruising, No Bleeding,No Lymphadenopathy Endocrine : No Polyuria, No Polydipsia, No Temperature Intolerance Mental Status Exam Mental Status Exam Patient Appearance: Appropriate Patient Orientation: Person and Situation Level of Consciousness: Awake and Appropriate Patient Behavior: Guarded and Passive Mood Description: Withdrawn Affect Description: Constricted Patient Cognition Impaired: Yes Ability to Follow Directions: Good Speech Pattern: Clear Diagnostics Vital Signs (24Hr): Vital Signs - 24 hr 12/13/23 11:19 12/13/23 20:00 12/14/23 08:00 Temperature 97.8 F 96.1 F L 97.1 F Pulse Rate 60 68 52 Respiratory Rate 15 16 16 Blood Pressure 118/57 L 139/60 127/64 Pulse Oximetry 97 95 98 Oxygen Delivery Method Room Air Room Air Room Air BMI result Body Mass Index 28.0 Labs 12/07/23 22:16 12/09/23 06:32 Labs: Laboratory Results - last 48 hr 12/12/23 12/13/23 12/13/23 21:31 05:15 06:24 POC Glucose 131 H 104 Urine Color Yellow Urine Appearance Turbid Urine pH 5.5 Ur Specific [place] 1.020 Urine Protein Negative Urine Glucose (UA) Negative Urine Ketones Negative Urine Blood Negative Urine Nitrite Negative Ur Leukocyte Esterase Negative Urine RBC 0-2 Urine WBC 0-5 Ur Squamous Epith Cells >20 Urine Bacteria 1+ Hyaline Casts 0-2 12/13/23 12/14/23 20:40 06:26 POC Glucose 173 H 109 Urine Color Urine Appearance Urine pH Ur Specific [place] Urine Protein Urine Glucose (UA) Urine Ketones Urine Blood Urine Nitrite Ur Leukocyte Esterase Urine RBC Urine WBC Ur Squamous Epith Cells Urine Bacteria Hyaline Casts Medications Medications Current Medications Acetaminophen (Acetaminophen 325 Mg Tablet) 650 mg PO Q6H PRN PRN Reason: Headache/Pain Mild Scale (1-3) Last Admin: 12/12/23 16:57 Dose: 650 mg Al Hydroxide/Mg Hydroxide (Magnesium Hydrox/Alum Hydrox 30 Ml Oral.Susp) 30 ml PO Q6H PRN PRN Reason: Heartburn/Nausea Allopurinol (Allopurinol 100 Mg Tablet) 100 mg PO DAILY [facility] Last Admin: 12/14/23 08:58 Dose: 100 mg Amlodipine Besylate (Amlodipine Besylate 5 Mg Tablet) 5 mg PO DAILY [facility]; Protocol Last Admin: 12/14/23 08:57 Dose: 5 mg Atorvastatin Calcium (Atorvastatin Calcium 10 Mg Tablet) 10 mg PO BEDTIME [facility] Last Admin: 12/13/23 20:40 Dose: 10 mg Brexpiprazole (Brexpiprazole 1 Mg Tablet) 0.5 mg PO DAILY [facility] Last Admin: 12/14/23 08:58 Dose: Not Given Cholestyramine Resin (Cholestyramine (With Sugar) 4 Gm Powd.Pack) 4 gm PO DAILY [facility] Last Admin: 12/14/23 09:00 Dose: Not Given Diphenoxylate HCl/Atropine (Diphenoxylate/Atrop 2.5/0.025 Tablet) 1 tab PO DAILY PRN PRN Reason: Diarrhea Donepezil HCl (Donepezil Hcl 5 Mg Tablet) 5 mg PO BEDTIME [facility] Last Admin: 12/13/23 20:41 Dose: 5 mg Escitalopram Oxalate (Escitalopram Oxalate 10 Mg Tablet) 10 mg PO DAILY [facility] Last Admin: 12/14/23 08:58 Dose: 10 mg Levothyroxine Sodium (Levothyroxine Sodium 88 Mcg Tablet) 88 mcg PO DAILY@0600 [facility] Last Admin: 12/14/23 06:28 Dose: 88 mcg Lorazepam (Lorazepam 0.5 Mg Tablet) 0.5 mg PO DAILY PRN PRN Reason: anxiety Last Admin: 12/13/23 06:17 Dose: 0.5 mg Magnesium Hydroxide (Milk Of Magnesia 30 Ml Oral.Susp) 30 ml PO DAILY PRN PRN Reason: Constipation Memantine (Memantine Hcl 5 Mg Tablet) 5 mg PO DAILY [facility] Last Admin: 12/14/23 08:57 Dose: 5 mg Metformin HCl (Metformin Hcl Er 750 Mg Tab.Er.24h) 750 mg PO BEDTIME [facility] Last Admin: 12/13/23 20:41 Dose: 750 mg Metoprolol Succinate (Metoprolol Succinate Er 25 Mg Tab.Er.24h) 25 mg PO DAILY [facility]; Protocol Last Admin: 12/14/23 09:00 Dose: Not Given Olanzapine (Olanzapine 2.5 Mg Tablet) 2.5 mg PO Q4H PRN PRN Reason: agitation/acute psychosis Sitagliptin Phosphate (Sitagliptin Phosphate 100 Mg Tablet) 100 mg PO DAILY [facility] Last Admin: 12/14/23 08:58 Dose: 100 mg Spironolactone (Spironolactone 25 Mg Tablet) 12.5 mg PO DAILY [facility]; Protocol Last Admin: 12/14/23 08:58 Dose: 12.5 mg Trazodone HCl (Trazodone Hcl 50 Mg Tablet) 50 mg PO BEDTIME MRX1 PRN PRN Reason: Insomnia Vitamin D (Cholecalciferol (Vitamin D3) 25 Mcg Tablet) 25 mcg PO DAILY [facility] Last Admin: 12/14/23 08:58 Dose: 25 mcg Zolpidem Tartrate (Zolpidem Tartrate 5 Mg Tablet) 5 mg PO BEDTIME [facility] Last Admin: 12/13/23 20:41 Dose: 5 mg Allergies Allergies Allergy/AdvReac Type Severity Reaction Status Date / Time codeine Allergy Unknown Verified 12/07/23 20:27 Assessment & Plan Assessment & Plan (1) Dementia with psychotic disturbance: Status: Acute Code(s): F03.92 - Unspecified dementia, unspecified severity, with psychotic disturbance Plan Mrs. Jin is a 83 year-old woman with hx of vascular dementia with delusions of having an affair and some paranoid delusions. Some insight that this may not be the case but pt very much believes and takes action based on delusion despite here reporting that it may not be happening. It is unclear report from [facility] as to suicidal ideation. no indication of imminent harm to self or others, but collateral information is pending from family. May consider antipsychotic. PLAN 1. admit to S1, CV, 5 mins checks 2. prn olanzapine, but consider scheduling risperidone 3. obtain collateral information 4. aftercare planning. 5. norvasc increased from 2.5 mg daily to 5 mg daily as of today due to HTN. POCs DCed as not necessary. 6. Filed for Section 7 and 8 since the patient wants to live in the hospital and she is not ready for discharge yet. 7. Start Rexulti 0.5 p.o. daily for psychosis Reason for continued inpatient stay Substantial Risk for: inability to function Time Spent With Patient Time: Total time managing care of this patient today ____ minutes.
[2023-12-14] MEDS: Simethicone 80 MG TAB.CHEW PO (15:20)
[2023-12-14] MEDS: Acetaminophen 325 MG TABLET 650 MG PO (16:02)
[2023-12-14 20:00] VITALS: BP 136/63; PULSE 68; RESP 16; TEMP 36.4; O2SAT 99
[2023-12-14] MEDS: Donepezil HCl 5 MG TABLET PO (20:49)
[2023-12-14] MEDS: Zolpidem Tartrate 5 MG TABLET PO (20:49)
[2023-12-14] MEDS: Atorvastatin Calcium 10 MG TABLET PO (20:49)
[2023-12-14] MEDS: metFORMIN HCl ER 750 MG TAB.ER.24H PO (20:49)
[2023-12-14 20:58] LABS: Glucose, Whole Blood 166 mg/dL (60-115)
[2023-12-15] MEDS: Levothyroxine Sodium 88 MCG TABLET PO (06:20)
[2023-12-15 06:47] LABS: Glucose, Whole Blood 101 mg/dL (60-115)
--- NOTE | 2023-12-15 08:27 | HO.PSYCHPN ---
Subjective Subjective Date of Service: 12/15/23 Reason For Visit: psychosis Subjective Notes: Section 7 Interim History: Pt slept through the night. She reports she dos not think she needs to be her but accepting of situation. She does agree with going to a facility. She reports her roommate snores and does not let her state. She reported some bloating- given simethicone with good effect. VS stable. Review of Systems Review of Systems Constitutional : No Weight loss, No Fever, No Chills, No Night Sweats, No Fatigue, No Malaise ENT/Mouth : No Hearing loss, No Ear Pain, No Nasal Congestion, No Sinus Pain, No Hoarseness, No sore throat, No Rhinorrhea, No Swallowing Difficulty Eyes: No Eye Pain, No Swelling, No Redness, No Foreign Body, No Discharge, No Vision Changes Cardiovascular : No Chest Pain, No SOB, No Dyspnea on Exertion, No Orthopnea, No Edema, No Palpitations Respiratory : No Cough, No Sputum, No Wheezing, No Smoke Exposure, No Dyspnea Gastrointestinal : No Nausea, No Vomiting, No Diarrhea, No Constipation, No abdominal Pain, No Hematochezia, No Melena Genitourinary : no irregular bleeding, No Dysuria, No Urinary Frequency, No Hematuria, No Urinary Incontinence, No Urgency, No Flank Pain, No Urinary Flow Changes, No Hesitancy Musculoskeletal : No joint pain, No Myalgias, No Joint Swelling Skin : No Skin Lesions, No rash Neuro : No Weakness, No Numbness, No Paresthesias, No Loss of Consciousness, No Dizziness, No Headache Psych : No Anxiety/Panic, No Depression, No SI/HI/AH/VH, No Social Issues, Heme/Lymph: No Bruising, No Bleeding,No Lymphadenopathy Endocrine : No Polyuria, No Polydipsia, No Temperature Intolerance Mental Status Exam Mental Status Exam Patient Appearance: Appropriate Patient Orientation: Person and Situation Level of Consciousness: Awake and Appropriate Patient Behavior: Guarded and Passive Mood Description: Withdrawn Affect Description: Constricted Patient Cognition Impaired: Yes Ability to Follow Directions: Good Speech Pattern: Clear Diagnostics Vital Signs (24Hr): Vital Signs - 24 hr 12/14/23 20:00 Temperature 97.5 F Pulse Rate 68 Respiratory Rate 16 Blood Pressure 136/63 Pulse Oximetry 99 Oxygen Delivery Method Room Air BMI result Body Mass Index 28.9 Labs 12/07/23 22:16 12/16/23 07:07 Labs: Laboratory Results - last 48 hr 12/13/23 12/14/23 12/14/23 20:40 06:26 20:47 POC Glucose 173 H 109 166 H 12/15/23 06:41 POC Glucose 101 Medications Medications Current Medications Acetaminophen (Acetaminophen 325 Mg Tablet) 650 mg PO Q6H PRN PRN Reason: Headache/Pain Mild Scale (1-3) Last Admin: 12/14/23 16:02 Dose: 650 mg Al Hydroxide/Mg Hydroxide (Magnesium Hydrox/Alum Hydrox 30 Ml Oral.Susp) 30 ml PO Q6H PRN PRN Reason: Heartburn/Nausea Allopurinol (Allopurinol 100 Mg Tablet) 100 mg PO DAILY [facility] Last Admin: 12/14/23 08:58 Dose: 100 mg Amlodipine Besylate (Amlodipine Besylate 5 Mg Tablet) 5 mg PO DAILY [facility]; Protocol Last Admin: 12/14/23 08:57 Dose: 5 mg Atorvastatin Calcium (Atorvastatin Calcium 10 Mg Tablet) 10 mg PO BEDTIME [facility] Last Admin: 12/14/23 20:49 Dose: 10 mg Brexpiprazole (Brexpiprazole 1 Mg Tablet) 0.5 mg PO DAILY [facility] Last Admin: 12/14/23 08:58 Dose: Not Given Cholestyramine Resin (Cholestyramine (With Sugar) 4 Gm Powd.Pack) 4 gm PO DAILY [facility] Last Admin: 12/14/23 09:00 Dose: Not Given Diphenoxylate HCl/Atropine (Diphenoxylate/Atrop 2.5/0.025 Tablet) 1 tab PO DAILY PRN PRN Reason: Diarrhea Donepezil HCl (Donepezil Hcl 5 Mg Tablet) 5 mg PO BEDTIME [facility] Last Admin: 12/14/23 20:49 Dose: 5 mg Escitalopram Oxalate (Escitalopram Oxalate 10 Mg Tablet) 10 mg PO DAILY [facility] Last Admin: 12/14/23 08:58 Dose: 10 mg Levothyroxine Sodium (Levothyroxine Sodium 88 Mcg Tablet) 88 mcg PO DAILY@0600 [facility] Last Admin: 12/15/23 06:20 Dose: 88 mcg Loperamide HCl (Loperamide Hcl 2 Mg Capsule) 2 mg PO Q4H PRN PRN Reason: Loose Stool Lorazepam (Lorazepam 0.5 Mg Tablet) 0.5 mg PO DAILY PRN PRN Reason: anxiety Last Admin: 12/13/23 06:17 Dose: 0.5 mg Magnesium Hydroxide (Milk Of Magnesia 30 Ml Oral.Susp) 30 ml PO DAILY PRN PRN Reason: Constipation Memantine (Memantine Hcl 5 Mg Tablet) 5 mg PO DAILY [facility] Last Admin: 12/14/23 08:57 Dose: 5 mg Metformin HCl (Metformin Hcl Er 750 Mg Tab.Er.24h) 750 mg PO BEDTIME [facility] Last Admin: 12/14/23 20:49 Dose: 750 mg Metoprolol Succinate (Metoprolol Succinate Er 25 Mg Tab.Er.24h) 25 mg PO DAILY [facility]; Protocol Last Admin: 12/14/23 09:00 Dose: Not Given Olanzapine (Olanzapine 2.5 Mg Tablet) 2.5 mg PO Q4H PRN PRN Reason: agitation/acute psychosis Simethicone (Simethicone 80 Mg Tab.Chew) 80 mg PO QIDWMHS PRN PRN Reason: bloating Last Admin: 12/14/23 15:20 Dose: 80 mg Sitagliptin Phosphate (Sitagliptin Phosphate 100 Mg Tablet) 100 mg PO DAILY [facility] Last Admin: 12/14/23 08:58 Dose: 100 mg Spironolactone (Spironolactone 25 Mg Tablet) 12.5 mg PO DAILY [facility]; Protocol Last Admin: 12/14/23 08:58 Dose: 12.5 mg Trazodone HCl (Trazodone Hcl 50 Mg Tablet) 50 mg PO BEDTIME MRX1 PRN PRN Reason: Insomnia Vitamin D (Cholecalciferol (Vitamin D3) 25 Mcg Tablet) 25 mcg PO DAILY [facility] Last Admin: 12/14/23 08:58 Dose: 25 mcg Zolpidem Tartrate (Zolpidem Tartrate 5 Mg Tablet) 5 mg PO BEDTIME [facility] Last Admin: 12/14/23 20:49 Dose: 5 mg Allergies Allergies Allergy/AdvReac Type Severity Reaction Status Date / Time codeine Allergy Unknown Verified 12/07/23 20:27 Assessment & Plan Assessment & Plan (1) Dementia with psychotic disturbance: Status: Acute Code(s): F03.92 - Unspecified dementia, unspecified severity, with psychotic disturbance Plan Mrs. Jin is a 83 year-old woman with hx of vascular dementia with delusions of having an affair and some paranoid delusions. Some insight that this may not be the case but pt very much believes and takes action based on delusion despite here reporting that it may not be happening. It is unclear report from N as to suicidal ideation. no indication of imminent harm to self or others, but collateral information is pending from family. May consider antipsychotic. PLAN 12/14 continue tx. Reason for continued inpatient stay Substantial Risk for: inability to function Time Spent With Patient Time: Total time managing care of this patient today ____ minutes.
[2023-12-15 08:43] VITALS: BP 135/87; PULSE 71; RESP 15; TEMP 36.6; O2SAT 99
[2023-12-15] MEDS: Escitalopram Oxalate 10 MG TABLET PO (08:44)
[2023-12-15] MEDS: allopurinoL 100 MG TABLET PO (08:44)
[2023-12-15] MEDS: Brexpiprazole 1 MG TABLET 0.5 MG PO (08:44)
[2023-12-15] MEDS: Spironolactone 25 MG TABLET 12.5 MG PO (08:45)
[2023-12-15] MEDS: Cholecalciferol (Vitamin D3) 25 MCG TABLET PO (08:45)
[2023-12-15] MEDS: amLODIPine Besylate 5 MG TABLET PO (08:45)
[2023-12-15] MEDS: Memantine HCl 5 MG TABLET PO (08:45)
[2023-12-15] MEDS: Metoprolol Succinate ER 25 MG TAB.ER.24H PO (08:45)
[2023-12-15] MEDS: SITagliptin Phosphate 100 MG TABLET PO (08:46)
[2023-12-15] MEDS: Acetaminophen 325 MG TABLET 650 MG PO (09:33)
[2023-12-15 19:57] LABS: Glucose, Whole Blood 139 mg/dL (60-115)
[2023-12-15 20:00] VITALS: BP 121/60; PULSE 69; RESP 16; TEMP 36.3; O2SAT 97
[2023-12-15] MEDS: Zolpidem Tartrate 5 MG TABLET PO (20:59)
[2023-12-15] MEDS: Atorvastatin Calcium 10 MG TABLET PO (20:59)
[2023-12-15] MEDS: metFORMIN HCl ER 750 MG TAB.ER.24H PO (20:59)
[2023-12-15] MEDS: Donepezil HCl 5 MG TABLET PO (20:59)
[2023-12-16] MEDS: Levothyroxine Sodium 88 MCG TABLET PO (06:51)
[2023-12-16 07:04] LABS: Glucose, Whole Blood 104 mg/dL (60-115)
[2023-12-16 07:48] LABS: Creatinine Clr Calc Pharmacy 38.4; Estimated Glomerular Filt Rate 46
[2023-12-16 08:00] VITALS: BP 117/60; PULSE 58; RESP 16; TEMP 36.1; O2SAT 98
[2023-12-16 09:07] VITALS: BP 117/60
[2023-12-16] MEDS: allopurinoL 100 MG TABLET PO (09:07)
[2023-12-16] MEDS: Cholecalciferol (Vitamin D3) 25 MCG TABLET PO (09:07)
[2023-12-16] MEDS: Spironolactone 25 MG TABLET 12.5 MG PO (09:07)
[2023-12-16] MEDS: Memantine HCl 5 MG TABLET PO (09:09)
[2023-12-16] MEDS: SITagliptin Phosphate 100 MG TABLET PO (09:09)
[2023-12-16] MEDS: Brexpiprazole 1 MG TABLET 0.5 MG PO (09:09)
[2023-12-16 09:11] VITALS: BP 117/60
[2023-12-16] MEDS: amLODIPine Besylate 5 MG TABLET PO (09:11)
[2023-12-16] MEDS: Escitalopram Oxalate 10 MG TABLET PO (09:11)
[2023-12-16 09:16] VITALS: BP 117/60; PULSE 58
[2023-12-16 19:48] LABS: Glucose, Whole Blood 193 mg/dL (60-115)
[2023-12-16 20:00] VITALS: BP 142/65; PULSE 71; RESP 16; TEMP 36; O2SAT 100
[2023-12-16] MEDS: Acetaminophen 325 MG TABLET 650 MG PO (20:44)
[2023-12-16] MEDS: Donepezil HCl 5 MG TABLET PO (20:45)
[2023-12-16] MEDS: Atorvastatin Calcium 10 MG TABLET PO (20:45)
[2023-12-16] MEDS: metFORMIN HCl ER 750 MG TAB.ER.24H PO (20:45)
[2023-12-16] MEDS: Zolpidem Tartrate 5 MG TABLET PO (20:45)
--- NOTE | 2023-12-16 21:05 | P.PNPSI_ITS ---
Subjective Subjective Date of Service: 12/16/23 Reason For Visit: psychosis Subjective Notes: Section 7 Healthcare Proxy: No (likely has daugther willing whom she used to live near) Medical Problems Affecting Mental Status: Yes (dementia) Interim History: 83 yo WWF very pleasant with this provider- knew patient from last visit when I saw her on medical floor - dx dementia with psychosis- Frequently accusing nursing of something- this pm - reported injury with Hoya lift in and back to bed- however nursing saw patient moving with out pain soon after- will follow Medication Compliance: Yes Side effects from medications: No Attending Groups: Intermittent Review of Systems Acute medical concerns: No Medical Review of Systems: unchanged Mental Status Exam Mental Status Exam Patient Appearance: Unkempt (but then after nursing helped with adls wnl) Patient Orientation: Person, Place and Situation Level of Consciousness: Awake Patient Behavior: Appropriate (with this provider, ), Suspicious (accusatory with staff- though she is total care- and they clearly take good care of her) and Resistive to Care Mood Description: Calm Affect Description: Suspicious (at times, otherwise superficially appropriate) Patient Cognition Impaired: Yes Ability to Follow Directions: Fair Speech Pattern: Clear Hallucinations: None Delusions: Present Thought Process: Intact and Goal Oriented Thought Content: positive for Goal Oriented Judgement: Fair Diagnostics Vital Signs (24Hr): Vital Signs - 24 hr 12/16/23 08:00 12/16/23 09:07 12/16/23 09:11 Temperature 97.0 F Pulse Rate 58 Respiratory Rate 16 Blood Pressure 117/60 117/60 117/60 Pulse Oximetry 98 Oxygen Delivery Method Room Air 12/16/23 09:16 12/16/23 20:00 Temperature 96.8 F Pulse Rate 58 71 Respiratory Rate 16 Blood Pressure 117/60 142/65 H Pulse Oximetry 100 Oxygen Delivery Method Room Air BMI result Body Mass Index 28.9 Labs 12/07/23 22:16 12/16/23 07:07 Labs: Laboratory Results - last 48 hr 12/15/23 12/15/23 12/16/23 06:41 19:47 06:50 Creatinine Estim Creat Clear Calc Estimated GFR POC Glucose 101 139 H 104 12/16/23 12/16/23 07:07 19:37 Creatinine 1.13 Estim Creat Clear Calc 38.4 Estimated GFR 46 POC Glucose 193 H Medications Medications Current Medications Acetaminophen (Acetaminophen 325 Mg Tablet) 650 mg PO Q6H PRN PRN Reason: Headache/Pain Mild Scale (1-3) Last Admin: 12/16/23 20:44 Dose: 650 mg Al Hydroxide/Mg Hydroxide (Magnesium Hydrox/Alum Hydrox 30 Ml Oral.Susp) 30 ml PO Q6H PRN PRN Reason: Heartburn/Nausea Allopurinol (Allopurinol 100 Mg Tablet) 100 mg PO DAILY [facility] Last Admin: 12/16/23 09:07 Dose: 100 mg Amlodipine Besylate (Amlodipine Besylate 5 Mg Tablet) 5 mg PO DAILY [facility]; Protocol Last Admin: 12/16/23 09:11 Dose: 5 mg Atorvastatin Calcium (Atorvastatin Calcium 10 Mg Tablet) 10 mg PO BEDTIME [facility] Last Admin: 12/16/23 20:45 Dose: 10 mg Cholestyramine Resin (Cholestyramine (With Sugar) 4 Gm Powd.Pack) 4 gm PO DAILY [facility] Last Admin: 12/16/23 09:16 Dose: Not Given Diphenoxylate HCl/Atropine (Diphenoxylate/Atrop 2.5/0.025 Tablet) 1 tab PO DAILY PRN PRN Reason: Diarrhea Donepezil HCl (Donepezil Hcl 5 Mg Tablet) 5 mg PO BEDTIME [facility] Last Admin: 12/16/23 20:45 Dose: 5 mg Escitalopram Oxalate (Escitalopram Oxalate 10 Mg Tablet) 10 mg PO DAILY [facility] Last Admin: 12/16/23 09:11 Dose: 10 mg Levothyroxine Sodium (Levothyroxine Sodium 88 Mcg Tablet) 88 mcg PO DAILY@0600 [facility] Last Admin: 12/16/23 06:51 Dose: 88 mcg Loperamide HCl (Loperamide Hcl 2 Mg Capsule) 2 mg PO Q4H PRN PRN Reason: Loose Stool Lorazepam (Lorazepam 0.5 Mg Tablet) 0.5 mg PO DAILY PRN PRN Reason: anxiety Last Admin: 12/13/23 06:17 Dose: 0.5 mg Magnesium Hydroxide (Milk Of Magnesia 30 Ml Oral.Susp) 30 ml PO DAILY PRN PRN Reason: Constipation Memantine (Memantine Hcl 5 Mg Tablet) 5 mg PO DAILY [facility] Last Admin: 12/16/23 09:09 Dose: 5 mg Metformin HCl (Metformin Hcl Er 750 Mg Tab.Er.24h) 750 mg PO BEDTIME [facility] Last Admin: 12/16/23 20:45 Dose: 750 mg Metoprolol Succinate (Metoprolol Succinate Er 25 Mg Tab.Er.24h) 25 mg PO DAILY [facility]; Protocol Last Admin: 12/16/23 09:16 Dose: Not Given Olanzapine (Olanzapine 2.5 Mg Tablet) 2.5 mg PO Q4H PRN PRN Reason: agitation/acute psychosis Simethicone (Simethicone 80 Mg Tab.Chew) 80 mg PO QIDWMHS PRN PRN Reason: bloating Last Admin: 12/14/23 15:20 Dose: 80 mg Sitagliptin Phosphate (Sitagliptin Phosphate 100 Mg Tablet) 100 mg PO DAILY [facility] Last Admin: 12/16/23 09:09 Dose: 100 mg Spironolactone (Spironolactone 25 Mg Tablet) 12.5 mg PO DAILY [facility]; Protocol Last Admin: 12/16/23 09:07 Dose: 12.5 mg Trazodone HCl (Trazodone Hcl 50 Mg Tablet) 50 mg PO BEDTIME MRX1 PRN PRN Reason: Insomnia Vitamin D (Cholecalciferol (Vitamin D3) 25 Mcg Tablet) 25 mcg PO DAILY [facility] Last Admin: 12/16/23 09:07 Dose: 25 mcg Zolpidem Tartrate (Zolpidem Tartrate 5 Mg Tablet) 5 mg PO BEDTIME [facility] Last Admin: 12/16/23 20:45 Dose: 5 mg Allergies Allergies Allergy/AdvReac Type Severity Reaction Status Date / Time codeine Allergy Unknown Verified 12/07/23 20:27 Assessment & Plan Assessment & Plan (1) Dementia with psychotic disturbance: Status: Acute Code(s): F03.92 - Unspecified dementia, unspecified severity, with psychotic disturbance Plan Mrs. Jin is a 83 year-old woman with hx of vascular dementia with delusions of having an affair and some paranoid delusions. Some insight that this may not be the case but pt very much believes and takes action based on delusion despite here reporting that it may not be happening. It is unclear report from [facility] as to suicidal ideation. no indication of imminent harm to self or others, but collateral information is pending from family. May consider antipsychotic. PLAN 12/14 continue tx. 12/15- increased rexulti form 0.5mg to 1mg daily Patient educated on: medication risk/benefits Informed Consent: further education needed Reason for continued inpatient stay Substantial Risk for: inability to function and rapid decompensation Time Spent With Patient Time: Total time managing care of this patient today ____ minutes.
--- NOTE | 2023-12-16 22:27 | PC.NURSE ---
Kylie said she was injured while on a tobias during transfer to bed. Said, she wants x-ray of her right knee and her back. Under assessment, Kylie was moving her legs and changed her position in bed without any complaints or moaning. Talked to the CNAs. They said nothing happened during transfer to bed. Provider Nu Mora notified by tiger text; answered, she will reassess tomorrow. Will continue to monitor.
[2023-12-17] MEDS: Levothyroxine Sodium 88 MCG TABLET PO (06:25)
[2023-12-17 06:53] LABS: Glucose, Whole Blood 157 mg/dL (60-115)
[2023-12-17 08:05] VITALS: BP 149/67; PULSE 64; RESP 18; TEMP 36.1; O2SAT 100
[2023-12-17] MEDS: Escitalopram Oxalate 10 MG TABLET PO (08:32)
[2023-12-17] MEDS: Cholecalciferol (Vitamin D3) 25 MCG TABLET PO (08:32)
[2023-12-17] MEDS: SITagliptin Phosphate 100 MG TABLET PO (08:32)
[2023-12-17] MEDS: Memantine HCl 5 MG TABLET PO (08:32)
[2023-12-17] MEDS: allopurinoL 100 MG TABLET PO (08:32)
[2023-12-17 08:33] VITALS: BP 149/67; PULSE 64
[2023-12-17] MEDS: Metoprolol Succinate ER 25 MG TAB.ER.24H PO (08:33)
[2023-12-17] MEDS: Spironolactone 25 MG TABLET 12.5 MG PO (08:33)
[2023-12-17 08:34] VITALS: BP 149/67
[2023-12-17] MEDS: Acetaminophen 325 MG TABLET 650 MG PO (08:34)
[2023-12-17] MEDS: amLODIPine Besylate 5 MG TABLET PO (08:34)
--- NOTE | 2023-12-17 14:42 | P.PNPSI_ITS ---
Subjective Subjective Date of Service: 12/17/23 Reason For Visit: psychosis Subjective Notes: Section 7 Medical Problems Affecting Mental Status: Yes (dementia) Interim History: 83 yo MWF always pleasant with this provider- long stories explaining away sys=- saying everyone else has it mixed up then goes into her explanation- no insight into her sys at all - except to say she has long hx of anxiety so she feels she does understand- Accusing staff of hoya lift incident- long explanation of this co back and knee pain- from it and was moving without discernable pain in bed- I examined knee no redness or swelling at all - normal movement. Pt refused rexulti ( I increased dose from-.5 to 1mg) saying to nurse she doesn't need it. Ongoing paranoia/accusations/delusions likely based on dementia- Reports not having been able to get up and out of bed independently in last 9 months- doesn't know why. Medication Compliance: Intermittent Side effects from medications: No Attending Groups: No Review of Systems Acute medical concerns: No Medical Review of Systems: unchanged Mental Status Exam Mental Status Exam Patient Appearance: Well Grooomed (nurses do adls for her - full care) Patient Orientation: Person, Place and Situation Level of Consciousness: Awake Patient Behavior: Talkative, Cooperative and Resistive to Care Mood Description: Calm and Apprehensive Affect Description: Cheerful Patient Cognition Impaired: Yes Ability to Follow Directions: Fair Speech Pattern: Clear Hallucinations: None Delusions: Paranoid Ideation Thought Process: Intact and Goal Oriented Thought Content: positive for Perseveration Depressive Symptoms: Back Pain (co but in bed all time or 2 x day up with hoya lift, doesn't need lunch) Judgement: Poor Judgement and Insight: no understand of why she is here or why she can't go home- though also tells nursing if she goes to NH will refused Hoya lift due to risks .. Diagnostics Vital Signs (24Hr): Vital Signs - 24 hr 12/16/23 20:00 12/17/23 08:05 12/17/23 08:33 Temperature 96.8 F 97.0 F Pulse Rate 71 64 Respiratory Rate 16 18 Blood Pressure 142/65 H 149/67 H 149/67 H Pulse Oximetry 100 100 Oxygen Delivery Method Room Air Room Air 12/17/23 08:33 08/25/24 08:34 Temperature Pulse Rate 64 Respiratory Rate Blood Pressure 149/67 H 149/67 H Pulse Oximetry Oxygen Delivery Method BMI result Body Mass Index 28.9 Labs 12/07/23 22:16 12/16/23 07:07 Labs: Laboratory Results - last 48 hr 12/15/23 12/16/23 12/16/23 19:47 06:50 07:07 Creatinine 1.13 Estim Creat Clear Calc 38.4 Estimated GFR 46 POC Glucose 139 H 104 12/16/23 12/17/23 19:37 06:28 Creatinine Estim Creat Clear Calc Estimated GFR POC Glucose 193 H 157 H Medications Medications Current Medications Acetaminophen (Acetaminophen 325 Mg Tablet) 650 mg PO Q6H PRN PRN Reason: Headache/Pain Mild Scale (1-3) Last Admin: 12/17/23 08:34 Dose: 650 mg Al Hydroxide/Mg Hydroxide (Magnesium Hydrox/Alum Hydrox 30 Ml Oral.Susp) 30 ml PO Q6H PRN PRN Reason: Heartburn/Nausea Allopurinol (Allopurinol 100 Mg Tablet) 100 mg PO DAILY [facility] Last Admin: 12/17/23 08:32 Dose: 100 mg Amlodipine Besylate (Amlodipine Besylate 5 Mg Tablet) 5 mg PO DAILY [facility]; Protocol Last Admin: 12/17/23 08:34 Dose: 5 mg Atorvastatin Calcium (Atorvastatin Calcium 10 Mg Tablet) 10 mg PO BEDTIME [facility] Last Admin: 12/16/23 20:45 Dose: 10 mg Brexpiprazole (Brexpiprazole 1 Mg Tablet) 0.5 mg PO BID [facility] Cholestyramine Resin (Cholestyramine (With Sugar) 4 Gm Powd.Pack) 4 gm PO DAILY [facility] Last Admin: 12/17/23 08:34 Dose: Not Given Diphenoxylate HCl/Atropine (Diphenoxylate/Atrop 2.5/0.025 Tablet) 1 tab PO DAILY PRN PRN Reason: Diarrhea Donepezil HCl (Donepezil Hcl 5 Mg Tablet) 5 mg PO BEDTIME [facility] Last Admin: 12/16/23 20:45 Dose: 5 mg Escitalopram Oxalate (Escitalopram Oxalate 10 Mg Tablet) 10 mg PO DAILY [facility] Last Admin: 12/17/23 08:32 Dose: 10 mg Levothyroxine Sodium (Levothyroxine Sodium 88 Mcg Tablet) 88 mcg PO DAILY@0600 [facility] Last Admin: 12/17/23 06:25 Dose: 88 mcg Loperamide HCl (Loperamide Hcl 2 Mg Capsule) 2 mg PO Q4H PRN PRN Reason: Loose Stool Lorazepam (Lorazepam 0.5 Mg Tablet) 0.5 mg PO DAILY PRN PRN Reason: anxiety Last Admin: 12/13/23 06:17 Dose: 0.5 mg Magnesium Hydroxide (Milk Of Magnesia 30 Ml Oral.Susp) 30 ml PO DAILY PRN PRN Reason: Constipation Memantine (Memantine Hcl 5 Mg Tablet) 5 mg PO DAILY [facility] Last Admin: 12/17/23 08:32 Dose: 5 mg Metformin HCl (Metformin Hcl Er 750 Mg Tab.Er.24h) 750 mg PO BEDTIME [facility] Last Admin: 12/16/23 20:45 Dose: 750 mg Metoprolol Succinate (Metoprolol Succinate Er 25 Mg Tab.Er.24h) 25 mg PO DAILY [facility]; Protocol Last Admin: 12/17/23 08:33 Dose: 25 mg Olanzapine (Olanzapine 2.5 Mg Tablet) 2.5 mg PO Q4H PRN PRN Reason: agitation/acute psychosis Simethicone (Simethicone 80 Mg Tab.Chew) 80 mg PO QIDWMHS PRN PRN Reason: bloating Last Admin: 12/14/23 15:20 Dose: 80 mg Sitagliptin Phosphate (Sitagliptin Phosphate 100 Mg Tablet) 100 mg PO DAILY [facility] Last Admin: 12/17/23 08:32 Dose: 100 mg Spironolactone (Spironolactone 25 Mg Tablet) 12.5 mg PO DAILY [facility]; Protocol Last Admin: 12/17/23 08:33 Dose: 12.5 mg Trazodone HCl (Trazodone Hcl 50 Mg Tablet) 50 mg PO BEDTIME MRX1 PRN PRN Reason: Insomnia Vitamin D (Cholecalciferol (Vitamin D3) 25 Mcg Tablet) 25 mcg PO DAILY [facility] Last Admin: 12/17/23 08:32 Dose: 25 mcg Zolpidem Tartrate (Zolpidem Tartrate 5 Mg Tablet) 5 mg PO BEDTIME [facility] Last Admin: 12/16/23 20:45 Dose: 5 mg Allergies Allergies Allergy/AdvReac Type Severity Reaction Status Date / Time codeine Allergy Unknown Verified 12/07/23 20:27 Assessment & Plan Assessment & Plan (1) Dementia with psychotic disturbance: Status: Acute Code(s): F03.92 - Unspecified dementia, unspecified severity, with psychotic disturbance Plan Mrs. Jin is a 83 year-old woman with hx of vascular dementia with delusions of having an affair and some paranoid delusions. Some insight that this may not be the case but pt very much believes and takes action based on delusion despite here reporting that it may not be happening. It is unclear report from [facility] as to suicidal ideation. no indication of imminent harm to self or others, but collateral information is pending from family. May consider antipsychotic. PLAN 12/14 continue tx. 12/15- increased rexulti form 0.5mg to 1mg daily 12/16- refused rexulti- today - ongoing baseline delusions shift from time to time but continue- no insight/understanding from patient Patient educated on: diagnosis and medication risk/benefits Informed Consent: further education needed Reason for continued inpatient stay Substantial Risk for: inability to function, rapid decompensation and med/psych decompensation Time Spent With Patient Time: Total time managing care of this patient today ____ minutes.
--- NOTE | 2023-12-17 17:07 | PC.NURSE ---
Kylie declined to take Rexulti and Questran despite education. Dr. Renee notified.
[2023-12-17 19:57] LABS: Glucose, Whole Blood 241 mg/dL (60-115)
[2023-12-17 20:00] VITALS: BP 150/64; PULSE 68; RESP 18; TEMP 36.1; O2SAT 96
[2023-12-17] MEDS: Atorvastatin Calcium 10 MG TABLET PO (20:10)
[2023-12-17] MEDS: Donepezil HCl 5 MG TABLET PO (20:10)
[2023-12-17] MEDS: metFORMIN HCl ER 750 MG TAB.ER.24H PO (20:10)
[2023-12-17] MEDS: Zolpidem Tartrate 5 MG TABLET PO (20:10)
[2023-12-18] MEDS: Levothyroxine Sodium 88 MCG TABLET PO (06:00)
[2023-12-18 06:40] LABS: Glucose, Whole Blood 113 mg/dL (60-115)
[2023-12-18 08:00] VITALS: BP 120/59; PULSE 60; RESP 18; TEMP 36.2; O2SAT 97
[2023-12-18 08:56] VITALS: BP 120/59
[2023-12-18] MEDS: Memantine HCl 5 MG TABLET PO (08:56)
[2023-12-18] MEDS: Cholecalciferol (Vitamin D3) 25 MCG TABLET PO (08:56)
[2023-12-18] MEDS: amLODIPine Besylate 5 MG TABLET PO (08:56)
[2023-12-18] MEDS: allopurinoL 100 MG TABLET PO (08:56)
[2023-12-18] MEDS: SITagliptin Phosphate 100 MG TABLET PO (08:56)
[2023-12-18] MEDS: Escitalopram Oxalate 10 MG TABLET PO (08:56)
[2023-12-18 08:57] VITALS: BP 120/59; PULSE 62
[2023-12-18] MEDS: Metoprolol Succinate ER 25 MG TAB.ER.24H PO (08:57)
[2023-12-18] MEDS: Spironolactone 25 MG TABLET 12.5 MG PO (08:57)
--- NOTE | 2023-12-18 12:50 | PC.NURSE ---
Patient refused to take Rexulti and Questran, education provided. Provider Aisha notified by tiger text.
--- NOTE | 2023-12-18 14:40 | P.PNPSI_ITS ---
Subjective Subjective Date of Service: 12/18/23 Reason For Visit: psychosis Subjective Notes: Section 7, Section 8 and Conditional Voluntary Interim History: The nursing staff reported the patient had been cooperative slept 6 hours but she has refused her Rexulti b.i.d.. Today we had a family meeting with her daughter, son and that we explained that her condition had deteriorated very fast since the last admission. Even though that she is verbally very well functionally she slow. We are going to start doing information of healthcare proxy. On interview I explained of her diagnosis and she requested to be discharged. We have already filed for Section 7 and 8. Mental Status Exam Mental Status Exam Patient Appearance: Well Grooomed Patient Orientation: Person and Situation Level of Consciousness: Awake and Appropriate Patient Behavior: Guarded and Passive Mood Description: Withdrawn Affect Description: Constricted Patient Cognition Impaired: Yes Ability to Follow Directions: Good Speech Pattern: Clear Hallucinations: None Delusions: Not Present Thought Process: Distracted and Slowed Thinking Thought Content: positive for [place] and positive for Poverty of Content Judgement: Poor Diagnostics Vital Signs (24Hr): Vital Signs - 24 hr 12/17/23 20:00 12/18/23 08:00 12/18/23 08:56 Temperature 96.9 F 97.2 F Pulse Rate 68 60 Respiratory Rate 18 18 Blood Pressure 150/64 H 120/59 L 120/59 L Pulse Oximetry 96 97 Oxygen Delivery Method Room Air Room Air 12/18/23 08:57 12/18/23 08:57 Temperature Pulse Rate 62 Respiratory Rate Blood Pressure 120/59 L 120/59 L Pulse Oximetry Oxygen Delivery Method BMI result Body Mass Index 28.9 Labs 12/07/23 22:16 12/16/23 07:07 Labs: Laboratory Results - last 48 hr 12/16/23 12/17/23 12/17/23 19:37 06:28 19:53 POC Glucose 193 H 157 H 241 H 12/18/23 06:29 POC Glucose 113 Medications Medications Current Medications Acetaminophen (Acetaminophen 325 Mg Tablet) 650 mg PO Q6H PRN PRN Reason: Headache/Pain Mild Scale (1-3) Last Admin: 12/17/23 08:34 Dose: 650 mg Al Hydroxide/Mg Hydroxide (Magnesium Hydrox/Alum Hydrox 30 Ml Oral.Susp) 30 ml PO Q6H PRN PRN Reason: Heartburn/Nausea Allopurinol (Allopurinol 100 Mg Tablet) 100 mg PO DAILY [facility] Last Admin: 12/18/23 08:56 Dose: 100 mg Amlodipine Besylate (Amlodipine Besylate 5 Mg Tablet) 5 mg PO DAILY [facility]; Protocol Last Admin: 12/18/23 08:56 Dose: 5 mg Atorvastatin Calcium (Atorvastatin Calcium 10 Mg Tablet) 10 mg PO BEDTIME [facility] Last Admin: 12/17/23 20:10 Dose: 10 mg Brexpiprazole (Brexpiprazole 1 Mg Tablet) 0.5 mg PO BID [facility] Last Admin: 12/18/23 09:09 Dose: Not Given Cholestyramine Resin (Cholestyramine (With Sugar) 4 Gm Powd.Pack) 4 gm PO DAILY [facility] Last Admin: 12/18/23 09:10 Dose: Not Given Diphenoxylate HCl/Atropine (Diphenoxylate/Atrop 2.5/0.025 Tablet) 1 tab PO DAILY PRN PRN Reason: Diarrhea Donepezil HCl (Donepezil Hcl 5 Mg Tablet) 5 mg PO BEDTIME [facility] Last Admin: 12/17/23 20:10 Dose: 5 mg Escitalopram Oxalate (Escitalopram Oxalate 10 Mg Tablet) 10 mg PO DAILY [facility] Last Admin: 12/18/23 08:56 Dose: 10 mg Levothyroxine Sodium (Levothyroxine Sodium 88 Mcg Tablet) 88 mcg PO DAILY@0600 [facility] Last Admin: 12/18/23 06:00 Dose: 88 mcg Loperamide HCl (Loperamide Hcl 2 Mg Capsule) 2 mg PO Q4H PRN PRN Reason: Loose Stool Lorazepam (Lorazepam 0.5 Mg Tablet) 0.5 mg PO DAILY PRN PRN Reason: anxiety Last Admin: 12/13/23 06:17 Dose: 0.5 mg Magnesium Hydroxide (Milk Of Magnesia 30 Ml Oral.Susp) 30 ml PO DAILY PRN PRN Reason: Constipation Memantine (Memantine Hcl 5 Mg Tablet) 5 mg PO DAILY [facility] Last Admin: 12/18/23 08:56 Dose: 5 mg Metformin HCl (Metformin Hcl Er 750 Mg Tab.Er.24h) 750 mg PO BEDTIME [facility] Last Admin: 12/17/23 20:10 Dose: 750 mg Metoprolol Succinate (Metoprolol Succinate Er 25 Mg Tab.Er.24h) 25 mg PO DAILY [facility]; Protocol Last Admin: 12/18/23 08:57 Dose: 25 mg Olanzapine (Olanzapine 2.5 Mg Tablet) 2.5 mg PO Q4H PRN PRN Reason: agitation/acute psychosis Simethicone (Simethicone 80 Mg Tab.Chew) 80 mg PO QIDWMHS PRN PRN Reason: bloating Last Admin: 12/14/23 15:20 Dose: 80 mg Sitagliptin Phosphate (Sitagliptin Phosphate 100 Mg Tablet) 100 mg PO DAILY [facility] Last Admin: 12/18/23 08:56 Dose: 100 mg Spironolactone (Spironolactone 25 Mg Tablet) 12.5 mg PO DAILY [facility]; Protocol Last Admin: 12/18/23 08:57 Dose: 12.5 mg Trazodone HCl (Trazodone Hcl 50 Mg Tablet) 50 mg PO BEDTIME MRX1 PRN PRN Reason: Insomnia Vitamin D (Cholecalciferol (Vitamin D3) 25 Mcg Tablet) 25 mcg PO DAILY [facility] Last Admin: 12/18/23 08:56 Dose: 25 mcg Zolpidem Tartrate (Zolpidem Tartrate 5 Mg Tablet) 5 mg PO BEDTIME [facility] Last Admin: 12/17/23 20:10 Dose: 5 mg Allergies Allergies Allergy/AdvReac Type Severity Reaction Status Date / Time codeine Allergy Unknown Verified 12/07/23 20:27 Assessment & Plan Assessment & Plan (1) Dementia with psychotic disturbance: Status: Acute Code(s): F03.92 - Unspecified dementia, unspecified severity, with psychotic disturbance Plan Mrs. Jin is a 83 year-old woman with hx of vascular dementia with delusions of having an affair and some paranoid delusions. Some insight that this may not be the case but pt very much believes and takes action based on delusion despite here reporting that it may not be happening. It is unclear report from [facility] as to suicidal ideation. no indication of imminent harm to self or others, but collateral information is pending from family. May consider antipsychotic. PLAN 1. Restart Namenda. 2. Rexulti was started and increase it to 0.5 p.o. b.i.d. at this point. 3. Information of healthcare proxy. 4. Reassessment with results. Reason for continued inpatient stay Substantial Risk for: inability to function, rapid decompensation and med/psych decompensation Time Spent With Patient Time: Total time managing care of this patient today __20__ minutes.
[2023-12-18] MEDS: Acetaminophen 325 MG TABLET 650 MG PO (15:27)
[2023-12-18 20:00] VITALS: BP 134/61; PULSE 67; RESP 18; TEMP 36.6; O2SAT 98
[2023-12-18 20:04] LABS: Glucose, Whole Blood 161 mg/dL (60-115)
[2023-12-18] MEDS: Zolpidem Tartrate 5 MG TABLET PO (20:26)
[2023-12-18] MEDS: metFORMIN HCl ER 750 MG TAB.ER.24H PO (20:26)
[2023-12-18] MEDS: Donepezil HCl 5 MG TABLET PO (20:27)
[2023-12-18] MEDS: Atorvastatin Calcium 10 MG TABLET PO (20:27)
[2023-12-19] MEDS: Levothyroxine Sodium 88 MCG TABLET PO (06:13)
[2023-12-19 06:30] LABS: Glucose, Whole Blood 90 mg/dL (60-115)
[2023-12-19 08:00] VITALS: BP 122/64; PULSE 64; RESP 18; TEMP 36.8; O2SAT 98
[2023-12-19] MEDS: Cholecalciferol (Vitamin D3) 25 MCG TABLET PO (08:50)
[2023-12-19] MEDS: allopurinoL 100 MG TABLET PO (08:50)
[2023-12-19] MEDS: SITagliptin Phosphate 100 MG TABLET PO (08:51)
[2023-12-19] MEDS: Memantine HCl 5 MG TABLET PO (08:51)
[2023-12-19] MEDS: Spironolactone 25 MG TABLET 12.5 MG PO (08:51)
[2023-12-19] MEDS: amLODIPine Besylate 5 MG TABLET PO (08:52)
[2023-12-19] MEDS: Metoprolol Succinate ER 25 MG TAB.ER.24H PO (08:53)
[2023-12-19] MEDS: Escitalopram Oxalate 10 MG TABLET PO (08:53)
[2023-12-19] MEDS: Brexpiprazole 1 MG TABLET 0.5 MG PO (08:54)
--- NOTE | 2023-12-19 12:28 | P.PNPSI_ITS ---
Subjective Subjective Date of Service: 12/19/23 Reason For Visit: psychosis Subjective Notes: Conditional Voluntary Interim History: The nursing staff reported the patient has refused Rexulti she does not have any insight into her condition. She slept 8 hours. Yesterday after the family meeting the patient agreed to go to [facility] facility. We decided to discontinue Rexulti since the patient has never been assaultive even though that she had being paranoid and psychotic but no behavioral disturbances. On interview the patient denies new symptoms, she is willing to go to [facility] facility. Mental Status Exam Mental Status Exam Patient Appearance: Appropriate Patient Orientation: Person and Situation Level of Consciousness: Awake and Appropriate Patient Behavior: Guarded and Passive Mood Description: Withdrawn Affect Description: Constricted Patient Cognition Impaired: Yes Ability to Follow Directions: Good Speech Pattern: Clear Memory Description: Intact Hallucinations: None Delusions: Ideas of Reference Thought Process: Distracted and Slowed Thinking Thought Content: positive for [place] and positive for Poverty of Content Judgement: Poor Diagnostics Vital Signs (24Hr): Vital Signs - 24 hr 12/18/23 20:00 12/19/23 08:00 Temperature 97.8 F 98.2 F Pulse Rate 67 64 Respiratory Rate 18 18 Blood Pressure 134/61 122/64 Pulse Oximetry 98 98 Oxygen Delivery Method Room Air Room Air BMI result Body Mass Index 28.9 Labs 12/07/23 22:16 12/16/23 07:07 Labs: Laboratory Results - last 48 hr 12/17/23 12/18/23 12/18/23 19:53 06:29 20:00 POC Glucose 241 H 113 161 H 12/19/23 06:25 POC Glucose 90 Medications Medications Current Medications Acetaminophen (Acetaminophen 325 Mg Tablet) 650 mg PO Q6H PRN PRN Reason: Headache/Pain Mild Scale (1-3) Last Admin: 12/18/23 15:27 Dose: 650 mg Al Hydroxide/Mg Hydroxide (Magnesium Hydrox/Alum Hydrox 30 Ml Oral.Susp) 30 ml PO Q6H PRN PRN Reason: Heartburn/Nausea Allopurinol (Allopurinol 100 Mg Tablet) 100 mg PO DAILY [facility] Last Admin: 12/19/23 08:50 Dose: 100 mg Amlodipine Besylate (Amlodipine Besylate 5 Mg Tablet) 5 mg PO DAILY [facility]; Protocol Last Admin: 12/19/23 08:52 Dose: 5 mg Artificial Tears (Artificial Tears 15 Ml Drops) 2 drop EYE-BOTH Q4H PRN PRN Reason: Dry Eyes Atorvastatin Calcium (Atorvastatin Calcium 10 Mg Tablet) 10 mg PO BEDTIME [facility] Last Admin: 12/18/23 20:27 Dose: 10 mg Diphenoxylate HCl/Atropine (Diphenoxylate/Atrop 2.5/0.025 Tablet) 1 tab PO DAILY PRN PRN Reason: Diarrhea Donepezil HCl (Donepezil Hcl 5 Mg Tablet) 5 mg PO BEDTIME [facility] Last Admin: 12/18/23 20:27 Dose: 5 mg Escitalopram Oxalate (Escitalopram Oxalate 10 Mg Tablet) 10 mg PO DAILY [facility] Last Admin: 12/19/23 08:53 Dose: 10 mg Levothyroxine Sodium (Levothyroxine Sodium 88 Mcg Tablet) 88 mcg PO DAILY@0600 [facility] Last Admin: 12/19/23 06:13 Dose: 88 mcg Loperamide HCl (Loperamide Hcl 2 Mg Capsule) 2 mg PO Q4H PRN PRN Reason: Loose Stool Lorazepam (Lorazepam 0.5 Mg Tablet) 0.5 mg PO DAILY PRN PRN Reason: anxiety Last Admin: 12/13/23 06:17 Dose: 0.5 mg Magnesium Hydroxide (Milk Of Magnesia 30 Ml Oral.Susp) 30 ml PO DAILY PRN PRN Reason: Constipation Memantine (Memantine Hcl 5 Mg Tablet) 5 mg PO DAILY [facility] Last Admin: 12/19/23 08:51 Dose: 5 mg Metformin HCl (Metformin Hcl Er 750 Mg Tab.Er.24h) 750 mg PO BEDTIME [facility] Last Admin: 12/18/23 20:26 Dose: 750 mg Metoprolol Succinate (Metoprolol Succinate Er 25 Mg Tab.Er.24h) 25 mg PO DAILY [facility]; Protocol Last Admin: 12/19/23 08:53 Dose: 25 mg Olanzapine (Olanzapine 2.5 Mg Tablet) 2.5 mg PO Q4H PRN PRN Reason: agitation/acute psychosis Simethicone (Simethicone 80 Mg Tab.Chew) 80 mg PO QIDWMHS PRN PRN Reason: bloating Last Admin: 12/14/23 15:20 Dose: 80 mg Sitagliptin Phosphate (Sitagliptin Phosphate 100 Mg Tablet) 100 mg PO DAILY [facility] Last Admin: 12/19/23 08:51 Dose: 100 mg Spironolactone (Spironolactone 25 Mg Tablet) 12.5 mg PO DAILY [facility]; Protocol Last Admin: 12/19/23 08:51 Dose: 12.5 mg Trazodone HCl (Trazodone Hcl 50 Mg Tablet) 50 mg PO BEDTIME MRX1 PRN PRN Reason: Insomnia Vitamin D (Cholecalciferol (Vitamin D3) 25 Mcg Tablet) 25 mcg PO DAILY [facility] Last Admin: 12/19/23 08:50 Dose: 25 mcg Zolpidem Tartrate (Zolpidem Tartrate 5 Mg Tablet) 5 mg PO BEDTIME [facility] Last Admin: 12/18/23 20:26 Dose: 5 mg Allergies Allergies Allergy/AdvReac Type Severity Reaction Status Date / Time codeine Allergy Unknown Verified 12/07/23 20:27 Assessment & Plan Assessment & Plan (1) Dementia with psychotic disturbance: Status: Acute Code(s): F03.92 - Unspecified dementia, unspecified severity, with psychotic disturbance Plan Mrs. Jin is a 83 year-old woman with hx of vascular dementia with delusions of having an affair and some paranoid delusions. Some insight that this may not be the case but pt very much believes and takes action based on delusion despite here reporting that it may not be happening. It is unclear report from [facility] as to suicidal ideation. no indication of imminent harm to self or others, but collateral information is pending from family. May consider antipsychotic. PLAN 1. Restart Namenda. 2. Rexulti was started and increase it to 0.5 p.o. b.i.d. at this point. We are discontinued it on December 18 since the patient has refused to take it and there is no evidence of assaultive behavior. 3. Information of healthcare proxy. 4. Reassessment with results. Reason for continued inpatient stay Substantial Risk for: inability to function, rapid decompensation and med/psych decompensation Time Spent With Patient Time: Total time managing care of this patient today _20___ minutes.
[2023-12-19] MEDS: Acetaminophen 325 MG TABLET 650 MG PO (17:28)
[2023-12-19 20:00] VITALS: BP 113/54; PULSE 69; RESP 16; TEMP 36.1; O2SAT 96
[2023-12-19 20:25] LABS: Glucose, Whole Blood 201 mg/dL (60-115)
[2023-12-19] MEDS: metFORMIN HCl ER 750 MG TAB.ER.24H PO (21:01)
[2023-12-19] MEDS: Donepezil HCl 5 MG TABLET PO (21:01)
[2023-12-19] MEDS: Zolpidem Tartrate 5 MG TABLET PO (21:01)
[2023-12-19] MEDS: Atorvastatin Calcium 10 MG TABLET PO (21:01)
[2023-12-19] MEDS: LORazepam 0.5 MG TABLET PO (21:01)
[2023-12-20] MEDS: Levothyroxine Sodium 88 MCG TABLET PO (05:38)
[2023-12-20 06:47] LABS: Glucose, Whole Blood 100 mg/dL (60-115)
[2023-12-20 07:55] VITALS: BP 146/60; PULSE 62; RESP 18; TEMP 36.6; O2SAT 98
[2023-12-20] MEDS: SITagliptin Phosphate 100 MG TABLET PO (08:12)
[2023-12-20] MEDS: allopurinoL 100 MG TABLET PO (08:12)
[2023-12-20] MEDS: Spironolactone 25 MG TABLET 12.5 MG PO (08:12)
[2023-12-20] MEDS: Escitalopram Oxalate 10 MG TABLET PO (08:13)
[2023-12-20] MEDS: Metoprolol Succinate ER 25 MG TAB.ER.24H PO (08:13)
[2023-12-20] MEDS: Cholecalciferol (Vitamin D3) 25 MCG TABLET PO (08:13)
[2023-12-20] MEDS: amLODIPine Besylate 5 MG TABLET PO (08:13)
[2023-12-20] MEDS: Memantine HCl 5 MG TABLET PO (08:13)
[2023-12-20] MEDS: Artificial Tears 15 ML DROPS 2 DROP EYE-BOTH (09:17)
--- NOTE | 2023-12-20 12:54 | HO.PSYCHPN ---
Subjective Subjective Date of Service: 12/20/23 Reason For Visit: psychosis Subjective Notes: Conditional Voluntary Interim History: The nursing staff reported the patient had been visible in the unit, she had good appetite and slept 8 hours. The social work nurse had been starting to do the referrals for long-term placement. On interview the patient denies new symptoms cognitively impaired but no evidence of psychotic symptoms or agitated behavior. Mental Status Exam Mental Status Exam Patient Appearance: Appropriate Patient Orientation: Person and Situation Level of Consciousness: Awake and Appropriate Patient Behavior: Guarded and Passive Mood Description: Withdrawn Affect Description: Constricted Patient Cognition Impaired: Yes Ability to Follow Directions: Good Speech Pattern: Clear Hallucinations: None Delusions: Ideas of Reference Thought Process: Distracted and Slowed Thinking Thought Content: positive for [place] and positive for Circumstantial Judgement: Fair Diagnostics Vital Signs (24Hr): Vital Signs - 24 hr 12/19/23 20:00 12/20/23 07:55 Temperature 96.9 F 97.9 F Pulse Rate 69 62 Respiratory Rate 16 18 Blood Pressure 113/54 L 146/60 H Pulse Oximetry 96 98 Oxygen Delivery Method Room Air Room Air BMI result Body Mass Index 28.9 Labs 12/07/23 22:16 12/16/23 07:07 Labs: Laboratory Results - last 48 hr 12/18/23 12/19/23 12/19/23 20:00 06:25 20:06 POC Glucose 161 H 90 201 H 12/20/23 06:25 POC Glucose 100 Medications Medications Current Medications Acetaminophen (Acetaminophen 325 Mg Tablet) 650 mg PO Q6H PRN PRN Reason: Headache/Pain Mild Scale (1-3) Last Admin: 12/19/23 17:28 Dose: 650 mg Al Hydroxide/Mg Hydroxide (Magnesium Hydrox/Alum Hydrox 30 Ml Oral.Susp) 30 ml PO Q6H PRN PRN Reason: Heartburn/Nausea Allopurinol (Allopurinol 100 Mg Tablet) 100 mg PO DAILY [facility] Last Admin: 12/20/23 08:12 Dose: 100 mg Amlodipine Besylate (Amlodipine Besylate 5 Mg Tablet) 5 mg PO DAILY [facility]; Protocol Last Admin: 12/20/23 08:13 Dose: 5 mg Artificial Tears (Artificial Tears 15 Ml Drops) 2 drop EYE-BOTH Q4H PRN PRN Reason: Dry Eyes Last Admin: 12/20/23 09:17 Dose: 2 drop Atorvastatin Calcium (Atorvastatin Calcium 10 Mg Tablet) 10 mg PO BEDTIME [facility] Last Admin: 12/19/23 21:01 Dose: 10 mg Diphenoxylate HCl/Atropine (Diphenoxylate/Atrop 2.5/0.025 Tablet) 1 tab PO DAILY PRN PRN Reason: Diarrhea Donepezil HCl (Donepezil Hcl 5 Mg Tablet) 5 mg PO BEDTIME [facility] Last Admin: 12/19/23 21:01 Dose: 5 mg Escitalopram Oxalate (Escitalopram Oxalate 10 Mg Tablet) 10 mg PO DAILY [facility] Last Admin: 12/20/23 08:13 Dose: 10 mg Levothyroxine Sodium (Levothyroxine Sodium 88 Mcg Tablet) 88 mcg PO DAILY@0600 [facility] Last Admin: 12/20/23 05:38 Dose: 88 mcg Loperamide HCl (Loperamide Hcl 2 Mg Capsule) 2 mg PO Q4H PRN PRN Reason: Loose Stool Lorazepam (Lorazepam 0.5 Mg Tablet) 0.5 mg PO DAILY PRN PRN Reason: anxiety Last Admin: 12/19/23 21:01 Dose: 0.5 mg Magnesium Hydroxide (Milk Of Magnesia 30 Ml Oral.Susp) 30 ml PO DAILY PRN PRN Reason: Constipation Memantine (Memantine Hcl 5 Mg Tablet) 5 mg PO DAILY [facility] Last Admin: 12/20/23 08:13 Dose: 5 mg Metformin HCl (Metformin Hcl Er 750 Mg Tab.Er.24h) 750 mg PO BEDTIME [facility] Last Admin: 12/19/23 21:01 Dose: 750 mg Metoprolol Succinate (Metoprolol Succinate Er 25 Mg Tab.Er.24h) 25 mg PO DAILY [facility]; Protocol Last Admin: 12/20/23 08:13 Dose: 25 mg Olanzapine (Olanzapine 2.5 Mg Tablet) 2.5 mg PO Q4H PRN PRN Reason: agitation/acute psychosis Simethicone (Simethicone 80 Mg Tab.Chew) 80 mg PO QIDWMHS PRN PRN Reason: bloating Last Admin: 12/14/23 15:20 Dose: 80 mg Sitagliptin Phosphate (Sitagliptin Phosphate 100 Mg Tablet) 100 mg PO DAILY [facility] Last Admin: 12/20/23 08:12 Dose: 100 mg Spironolactone (Spironolactone 25 Mg Tablet) 12.5 mg PO DAILY [facility]; Protocol Last Admin: 12/20/23 08:12 Dose: 12.5 mg Trazodone HCl (Trazodone Hcl 50 Mg Tablet) 50 mg PO BEDTIME MRX1 PRN PRN Reason: Insomnia Vitamin D (Cholecalciferol (Vitamin D3) 25 Mcg Tablet) 25 mcg PO DAILY [facility] Last Admin: 12/20/23 08:13 Dose: 25 mcg Zolpidem Tartrate (Zolpidem Tartrate 5 Mg Tablet) 5 mg PO BEDTIME [facility] Last Admin: 12/19/23 21:01 Dose: 5 mg Allergies Allergies Allergy/AdvReac Type Severity Reaction Status Date / Time codeine Allergy Unknown Verified 12/07/23 20:27 Assessment & Plan Assessment & Plan (1) Dementia with psychotic disturbance: Status: Acute Code(s): F03.92 - Unspecified dementia, unspecified severity, with psychotic disturbance Plan Mrs. Jin is a 83 year-old woman with hx of vascular dementia with delusions of having an affair and some paranoid delusions. Some insight that this may not be the case but pt very much believes and takes action based on delusion despite here reporting that it may not be happening. It is unclear report from [facility] as to suicidal ideation. no indication of imminent harm to self or others, but collateral information is pending from family. May consider antipsychotic. PLAN 1. Restart Namenda. 2. Rexulti was started and increase it to 0.5 p.o. b.i.d. at this point. We are discontinued it on December 18 since the patient has refused to take it and there is no evidence of assaultive behavior. 3. Information of healthcare proxy. 4. Reassessment with results. Reason for continued inpatient stay Substantial Risk for: inability to function, rapid decompensation and med/psych decompensation Time Spent With Patient Time: Total time managing care of this patient today ___20_ minutes.
[2023-12-20] MEDS: Acetaminophen 325 MG TABLET 650 MG PO (14:31)
[2023-12-20 20:00] VITALS: BP 120/56; PULSE 68; RESP 18; TEMP 36.4; O2SAT 96
[2023-12-20] MEDS: Atorvastatin Calcium 10 MG TABLET PO (20:31)
[2023-12-20] MEDS: metFORMIN HCl ER 750 MG TAB.ER.24H PO (20:31)
[2023-12-20] MEDS: Donepezil HCl 5 MG TABLET PO (20:31)
[2023-12-20] MEDS: Zolpidem Tartrate 5 MG TABLET PO (20:32)
[2023-12-20 20:33] LABS: Glucose, Whole Blood 194 mg/dL (60-115)
[2023-12-21] MEDS: Levothyroxine Sodium 88 MCG TABLET PO (05:55)
[2023-12-21 06:51] LABS: Glucose, Whole Blood 103 mg/dL (60-115)
[2023-12-21 08:00] VITALS: BP 136/63; PULSE 58; RESP 16; TEMP 36; O2SAT 99
[2023-12-21] MEDS: Escitalopram Oxalate 10 MG TABLET PO (08:27)
[2023-12-21] MEDS: Spironolactone 25 MG TABLET 12.5 MG PO (08:27)
[2023-12-21] MEDS: Memantine HCl 5 MG TABLET PO (08:28)
[2023-12-21] MEDS: SITagliptin Phosphate 100 MG TABLET PO (08:28)
[2023-12-21] MEDS: allopurinoL 100 MG TABLET PO (08:28)
[2023-12-21] MEDS: Cholecalciferol (Vitamin D3) 25 MCG TABLET PO (08:28)
[2023-12-21] MEDS: amLODIPine Besylate 5 MG TABLET PO (08:28)
[2023-12-21] MEDS: Acetaminophen 325 MG TABLET 650 MG PO (08:28)
[2023-12-21] MEDS: Simethicone 80 MG TAB.CHEW PO (08:35)
--- NOTE | 2023-12-21 10:53 | P.PNPSI_ITS ---
Subjective Subjective Date of Service: 12/21/23 Reason For Visit: psychosis Interim History: c/o staff not being careful enough using tobias. wondering about when she will discharge, hoping to go home with VNA services already in place. no other complaints or requests. per staff, osychosis. pleasant. eating. slept 8 hours. taking meds. Mental Status Exam Mental Status Exam Patient Appearance: Appropriate Patient Orientation: Person and Situation Level of Consciousness: Awake and Appropriate Patient Behavior: Guarded and Passive Mood Description: Withdrawn Affect Description: Constricted Patient Cognition Impaired: Yes Ability to Follow Directions: Good Speech Pattern: Clear Hallucinations: None Delusions: Ideas of Reference Thought Process: Distracted Thought Content: positive for [place] and positive for Circumstantial Judgement: Fair Diagnostics Vital Signs (24Hr): Vital Signs - 24 hr 12/20/23 20:00 12/21/23 08:00 Temperature 97.6 F 96.8 F Pulse Rate 68 58 Respiratory Rate 18 16 Blood Pressure 120/56 L 136/63 Pulse Oximetry 96 99 Oxygen Delivery Method Room Air Room Air BMI result Body Mass Index 28.9 Labs 12/07/23 22:16 12/16/23 07:07 Labs: Laboratory Results - last 48 hr 12/19/23 12/20/23 12/20/23 20:06 06:25 20:08 POC Glucose 201 H 100 194 H 12/21/23 06:46 POC Glucose 103 Medications Medications Current Medications Acetaminophen (Acetaminophen 325 Mg Tablet) 650 mg PO Q6H PRN PRN Reason: Headache/Pain Mild Scale (1-3) Last Admin: 12/21/23 08:28 Dose: 650 mg Al Hydroxide/Mg Hydroxide (Magnesium Hydrox/Alum Hydrox 30 Ml Oral.Susp) 30 ml PO Q6H PRN PRN Reason: Heartburn/Nausea Allopurinol (Allopurinol 100 Mg Tablet) 100 mg PO DAILY [facility] Last Admin: 12/21/23 08:28 Dose: 100 mg Amlodipine Besylate (Amlodipine Besylate 5 Mg Tablet) 5 mg PO DAILY [facility]; Protocol Last Admin: 12/21/23 08:28 Dose: 5 mg Artificial Tears (Artificial Tears 15 Ml Drops) 2 drop EYE-BOTH Q4H PRN PRN Reason: Dry Eyes Last Admin: 12/20/23 09:17 Dose: 2 drop Atorvastatin Calcium (Atorvastatin Calcium 10 Mg Tablet) 10 mg PO BEDTIME [facility] Last Admin: 12/20/23 20:31 Dose: 10 mg Diphenoxylate HCl/Atropine (Diphenoxylate/Atrop 2.5/0.025 Tablet) 1 tab PO DAILY PRN PRN Reason: Diarrhea Donepezil HCl (Donepezil Hcl 5 Mg Tablet) 5 mg PO BEDTIME [facility] Last Admin: 12/20/23 20:31 Dose: 5 mg Escitalopram Oxalate (Escitalopram Oxalate 10 Mg Tablet) 10 mg PO DAILY [facility] Last Admin: 12/21/23 08:27 Dose: 10 mg Levothyroxine Sodium (Levothyroxine Sodium 88 Mcg Tablet) 88 mcg PO DAILY@0600 [facility] Last Admin: 12/21/23 05:55 Dose: 88 mcg Loperamide HCl (Loperamide Hcl 2 Mg Capsule) 2 mg PO Q4H PRN PRN Reason: Loose Stool Lorazepam (Lorazepam 0.5 Mg Tablet) 0.5 mg PO DAILY PRN PRN Reason: anxiety Last Admin: 12/19/23 21:01 Dose: 0.5 mg Magnesium Hydroxide (Milk Of Magnesia 30 Ml Oral.Susp) 30 ml PO DAILY PRN PRN Reason: Constipation Memantine (Memantine Hcl 5 Mg Tablet) 5 mg PO DAILY [facility] Last Admin: 12/21/23 08:28 Dose: 5 mg Metformin HCl (Metformin Hcl Er 750 Mg Tab.Er.24h) 750 mg PO BEDTIME [facility] Last Admin: 12/20/23 20:31 Dose: 750 mg Metoprolol Succinate (Metoprolol Succinate Er 25 Mg Tab.Er.24h) 25 mg PO DAILY [facility]; Protocol Last Admin: 12/21/23 08:31 Dose: Not Given Olanzapine (Olanzapine 2.5 Mg Tablet) 2.5 mg PO Q4H PRN PRN Reason: agitation/acute psychosis Simethicone (Simethicone 80 Mg Tab.Chew) 80 mg PO QIDWMHS PRN PRN Reason: bloating Last Admin: 12/21/23 08:35 Dose: 80 mg Sitagliptin Phosphate (Sitagliptin Phosphate 100 Mg Tablet) 100 mg PO DAILY [facility] Last Admin: 12/21/23 08:28 Dose: 100 mg Spironolactone (Spironolactone 25 Mg Tablet) 12.5 mg PO DAILY [facility]; Protocol Last Admin: 12/21/23 08:27 Dose: 12.5 mg Trazodone HCl (Trazodone Hcl 50 Mg Tablet) 50 mg PO BEDTIME MRX1 PRN PRN Reason: Insomnia Vitamin D (Cholecalciferol (Vitamin D3) 25 Mcg Tablet) 25 mcg PO DAILY [facility] Last Admin: 12/21/23 08:28 Dose: 25 mcg Zolpidem Tartrate (Zolpidem Tartrate 5 Mg Tablet) 5 mg PO BEDTIME [facility] Last Admin: 12/20/23 20:32 Dose: 5 mg Allergies Allergies Allergy/AdvReac Type Severity Reaction Status Date / Time codeine Allergy Unknown Verified 12/07/23 20:27 Assessment & Plan Assessment & Plan (1) Dementia with psychotic disturbance: Status: Acute Code(s): F03.92 - Unspecified dementia, unspecified severity, with psychotic disturbance Plan Mrs. Jin is a 83 year-old woman with hx of vascular dementia with delusions of having an affair and some paranoid delusions. Some insight that this may not be the case but pt very much believes and takes action based on delusion despite here reporting that it may not be happening. It is unclear report from [facility] as to suicidal ideation. no indication of imminent harm to self or others, but collateral information is pending from family. May consider antipsychotic. PLAN 1. Restart Namenda. 2. Rexulti was started and increase it to 0.5 p.o. b.i.d. at this point. We are discontinued it on December 18 since the patient has refused to take it and there is no evidence of assaultive behavior. 3. Information of healthcare proxy. 4. Reassessment with results. Reason for continued inpatient stay Substantial Risk for: harm to others and inability to function Time Spent With Patient Time: Total time managing care of this patient today __25__ minutes.
[2023-12-21 20:00] VITALS: BP 146/63; PULSE 74; RESP 18; TEMP 36; O2SAT 98
[2023-12-21 20:08] LABS: Glucose, Whole Blood 156 mg/dL (60-115)
[2023-12-21] MEDS: metFORMIN HCl ER 750 MG TAB.ER.24H PO (20:20)
[2023-12-21] MEDS: Zolpidem Tartrate 5 MG TABLET PO (20:20)
[2023-12-21] MEDS: Donepezil HCl 5 MG TABLET PO (20:20)
[2023-12-21] MEDS: Atorvastatin Calcium 10 MG TABLET PO (20:20)
[2023-12-22] MEDS: Levothyroxine Sodium 88 MCG TABLET PO (05:49)
[2023-12-22 06:26] LABS: Glucose, Whole Blood 114 mg/dL (60-115)
--- NOTE | 2023-12-22 07:51 | P.PNPSI_ITS ---
Subjective Subjective Date of Service: 12/22/23 Reason For Visit: psychosis Subjective Notes: Section 7 Interim History: Pt slept through the night. She reports doing well. Except for reporting vaginal itchiness- ordered dose of diflucan po for yeast infection. Pt denies SI/HI. pending placement. no behavioral concerns. Medication Compliance: Yes Side effects from medications: No Review of Systems Review of Systems Constitutional : No Weight loss, No Fever, No Chills, No Night Sweats, No Fatigue, No Malaise ENT/Mouth : No Hearing loss, No Ear Pain, No Nasal Congestion, No Sinus Pain, No Hoarseness, No sore throat, No Rhinorrhea, No Swallowing Difficulty Eyes: No Eye Pain, No Swelling, No Redness, No Foreign Body, No Discharge, No Vision Changes Cardiovascular : No Chest Pain, No SOB, No Dyspnea on Exertion, No Orthopnea, No Edema, No Palpitations Respiratory : No Cough, No Sputum, No Wheezing, No Smoke Exposure, No Dyspnea Gastrointestinal : No Nausea, No Vomiting, No Diarrhea, No Constipation, No abdominal Pain, No Hematochezia, No Melena Genitourinary : no irregular bleeding, No Dysuria, No Urinary Frequency, No Hematuria, No Urinary Incontinence, No Urgency, No Flank Pain, No Urinary Flow Changes, No Hesitancy Musculoskeletal : No joint pain, No Myalgias, No Joint Swelling Skin : No Skin Lesions, No rash Neuro : No Weakness, No Numbness, No Paresthesias, No Loss of Consciousness, No Dizziness, No Headache Psych : No Anxiety/Panic, No Depression, No SI/HI/AH/VH, No Social Issues, Heme/Lymph: No Bruising, No Bleeding,No Lymphadenopathy Endocrine : No Polyuria, No Polydipsia, No Temperature Intolerance Mental Status Exam Mental Status Exam Patient Appearance: Appropriate Patient Orientation: Person and Situation Level of Consciousness: Awake and Appropriate Patient Behavior: Guarded and Passive Mood Description: Withdrawn Affect Description: Constricted Patient Cognition Impaired: Yes Ability to Follow Directions: Good Speech Pattern: Clear Memory Description: Intact Diagnostics Vital Signs (24Hr): Vital Signs - 24 hr 12/21/23 08:00 12/21/23 20:00 Temperature 96.8 F 96.8 F Pulse Rate 58 74 Respiratory Rate 16 18 Blood Pressure 136/63 146/63 H Pulse Oximetry 99 98 Oxygen Delivery Method Room Air Room Air BMI result Body Mass Index 28.9 Labs 12/07/23 22:16 12/23/23 07:35 Labs: Laboratory Results - last 48 hr 12/20/23 12/21/23 12/21/23 20:08 06:46 19:58 POC Glucose 194 H 103 156 H 12/22/23 06:03 POC Glucose 114 Medications Medications Current Medications Acetaminophen (Acetaminophen 325 Mg Tablet) 650 mg PO Q6H PRN PRN Reason: Headache/Pain Mild Scale (1-3) Last Admin: 12/21/23 08:28 Dose: 650 mg Al Hydroxide/Mg Hydroxide (Magnesium Hydrox/Alum Hydrox 30 Ml Oral.Susp) 30 ml PO Q6H PRN PRN Reason: Heartburn/Nausea Allopurinol (Allopurinol 100 Mg Tablet) 100 mg PO DAILY [facility] Last Admin: 12/21/23 08:28 Dose: 100 mg Amlodipine Besylate (Amlodipine Besylate 5 Mg Tablet) 5 mg PO DAILY [facility]; Protocol Last Admin: 12/21/23 08:28 Dose: 5 mg Artificial Tears (Artificial Tears 15 Ml Drops) 2 drop EYE-BOTH Q4H PRN PRN Reason: Dry Eyes Last Admin: 12/20/23 09:17 Dose: 2 drop Atorvastatin Calcium (Atorvastatin Calcium 10 Mg Tablet) 10 mg PO BEDTIME [facility] Last Admin: 12/21/23 20:20 Dose: 10 mg Diphenoxylate HCl/Atropine (Diphenoxylate/Atrop 2.5/0.025 Tablet) 1 tab PO DAILY PRN PRN Reason: Diarrhea Donepezil HCl (Donepezil Hcl 5 Mg Tablet) 5 mg PO BEDTIME [facility] Last Admin: 12/21/23 20:20 Dose: 5 mg Escitalopram Oxalate (Escitalopram Oxalate 10 Mg Tablet) 10 mg PO DAILY [facility] Last Admin: 12/21/23 08:27 Dose: 10 mg Levothyroxine Sodium (Levothyroxine Sodium 88 Mcg Tablet) 88 mcg PO DAILY@0600 [facility] Last Admin: 12/22/23 05:49 Dose: 88 mcg Loperamide HCl (Loperamide Hcl 2 Mg Capsule) 2 mg PO Q4H PRN PRN Reason: Loose Stool Lorazepam (Lorazepam 0.5 Mg Tablet) 0.5 mg PO DAILY PRN PRN Reason: anxiety Last Admin: 12/19/23 21:01 Dose: 0.5 mg Magnesium Hydroxide (Milk Of Magnesia 30 Ml Oral.Susp) 30 ml PO DAILY PRN PRN Reason: Constipation Memantine (Memantine Hcl 5 Mg Tablet) 5 mg PO DAILY [facility] Last Admin: 12/21/23 08:28 Dose: 5 mg Metformin HCl (Metformin Hcl Er 750 Mg Tab.Er.24h) 750 mg PO BEDTIME [facility] Last Admin: 12/21/23 20:20 Dose: 750 mg Metoprolol Succinate (Metoprolol Succinate Er 25 Mg Tab.Er.24h) 25 mg PO DAILY [facility]; Protocol Last Admin: 12/21/23 08:31 Dose: Not Given Olanzapine (Olanzapine 2.5 Mg Tablet) 2.5 mg PO Q4H PRN PRN Reason: agitation/acute psychosis Simethicone (Simethicone 80 Mg Tab.Chew) 80 mg PO QIDWMHS PRN PRN Reason: bloating Last Admin: 12/21/23 08:35 Dose: 80 mg Sitagliptin Phosphate (Sitagliptin Phosphate 100 Mg Tablet) 100 mg PO DAILY [facility] Last Admin: 12/21/23 08:28 Dose: 100 mg Spironolactone (Spironolactone 25 Mg Tablet) 12.5 mg PO DAILY [facility]; Protocol Last Admin: 12/21/23 08:27 Dose: 12.5 mg Trazodone HCl (Trazodone Hcl 50 Mg Tablet) 50 mg PO BEDTIME [facility] PRN PRN Reason: Insomnia Vitamin D (Cholecalciferol (Vitamin D3) 25 Mcg Tablet) 25 mcg PO DAILY [facility] Last Admin: 12/21/23 08:28 Dose: 25 mcg Zolpidem Tartrate (Zolpidem Tartrate 5 Mg Tablet) 5 mg PO BEDTIME [facility] Last Admin: 12/21/23 20:20 Dose: 5 mg Allergies Allergies Allergy/AdvReac Type Severity Reaction Status Date / Time codeine Allergy Unknown Verified 12/07/23 20:27 Assessment & Plan Assessment & Plan (1) Dementia with psychotic disturbance: Status: Acute Code(s): F03.92 - Unspecified dementia, unspecified severity, with psychotic disturbance Plan Mrs. Jin is a 83 year-old woman with hx of vascular dementia with delusions of having an affair and some paranoid delusions. Some insight that this may not be the case but pt very much believes and takes action based on delusion despite here reporting that it may not be happening. It is unclear report from [facility] as to suicidal ideation. no indication of imminent harm to self or others, but collateral information is pending from family. May consider antipsychotic. PLAN 1. Restart Namenda. 2. Rexulti was started and increase it to 0.5 p.o. b.i.d. at this point. We are discontinued it on December 18 since the patient has refused to take it and there is no evidence of assaultive behavior. 3. Information of healthcare proxy. 4. Reassessment with results. Reason for continued inpatient stay Substantial Risk for: inability to function Time Spent With Patient Time: Total time managing care of this patient today ____ minutes.
[2023-12-22 08:00] VITALS: BP 136/65; PULSE 67; RESP 18; TEMP 36.2; O2SAT 99
[2023-12-22 08:27] VITALS: BP 136/65
[2023-12-22] MEDS: Cholecalciferol (Vitamin D3) 25 MCG TABLET PO (08:27)
[2023-12-22] MEDS: Memantine HCl 5 MG TABLET PO (08:27)
[2023-12-22] MEDS: Escitalopram Oxalate 10 MG TABLET PO (08:27)
[2023-12-22] MEDS: Spironolactone 25 MG TABLET 12.5 MG PO (08:27)
[2023-12-22 08:28] VITALS: BP 136/65
[2023-12-22] MEDS: amLODIPine Besylate 5 MG TABLET PO (08:28)
[2023-12-22] MEDS: allopurinoL 100 MG TABLET PO (08:28)
[2023-12-22] MEDS: SITagliptin Phosphate 100 MG TABLET PO (08:28)
[2023-12-22 08:29] VITALS: BP 136/65; PULSE 67
[2023-12-22] MEDS: Metoprolol Succinate ER 25 MG TAB.ER.24H PO (08:29)
[2023-12-22] MEDS: Hydrocortisone 1 % Cream 28.35 GM TUBE 1 APPL TOPICAL (10:23)
[2023-12-22] MEDS: Fluconazole 150 MG TABLET PO (13:58)
[2023-12-22] MEDS: Simethicone 80 MG TAB.CHEW PO (15:24)
[2023-12-22 20:00] VITALS: BP 133/62; PULSE 60; RESP 18; TEMP 36.7; O2SAT 97
[2023-12-22] MEDS: Donepezil HCl 5 MG TABLET PO (20:12)
[2023-12-22] MEDS: Atorvastatin Calcium 10 MG TABLET PO (20:12)
[2023-12-22] MEDS: metFORMIN HCl ER 750 MG TAB.ER.24H PO (20:13)
[2023-12-22] MEDS: Zolpidem Tartrate 5 MG TABLET PO (20:13)
[2023-12-22] MEDS: LORazepam 0.5 MG TABLET PO (20:13)
[2023-12-22 20:20] LABS: Glucose, Whole Blood 158 mg/dL (60-115)
[2023-12-23] MEDS: Levothyroxine Sodium 88 MCG TABLET PO (05:48)
[2023-12-23 06:41] LABS: Glucose, Whole Blood 98 mg/dL (60-115)
[2023-12-23 08:07] LABS: Creatinine Clr Calc Pharmacy 38.8; Estimated Glomerular Filt Rate 46
--- NOTE | 2023-12-23 09:09 | HO.PSYCHPN ---
Subjective Subjective Date of Service: 12/23/23 Reason For Visit: psychosis Interim History: Patient reports feeling well. Concerned about her Sjogren eye drops. Her was supposed to bring them in but didn't. Asked her to mention it to him next time she calls. Visible in the milieu and brightens when interacting with others. Wears dark glasses. Hoping to go home with VNA services already in place. no other complaints or requests. pleasant. eating. slept 8 hours. taking meds. Review of Systems Review of Systems Constitutional : No Weight loss, No Fever, No Chills, No Night Sweats, No Fatigue, No Malaise ENT/Mouth : No Hearing loss, No Ear Pain, No Nasal Congestion, No Sinus Pain, No Hoarseness, No sore throat, No Rhinorrhea, No Swallowing Difficulty Eyes: No Eye Pain, No Swelling, No Redness, No Foreign Body, No Discharge, No Vision Changes Cardiovascular : No Chest Pain, No SOB, No Dyspnea on Exertion, No Orthopnea, No Edema, No Palpitations Respiratory : No Cough, No Sputum, No Wheezing, No Smoke Exposure, No Dyspnea Gastrointestinal : No Nausea, No Vomiting, No Diarrhea, No Constipation, No abdominal Pain, No Hematochezia, No Melena Genitourinary : no irregular bleeding, No Dysuria, No Urinary Frequency, No Hematuria, No Urinary Incontinence, No Urgency, No Flank Pain, No Urinary Flow Changes, No Hesitancy Musculoskeletal : No joint pain, No Myalgias, No Joint Swelling Skin : No Skin Lesions, No rash Neuro : No Weakness, No Numbness, No Paresthesias, No Loss of Consciousness, No Dizziness, No Headache Psych : No Anxiety/Panic, No Depression, No SI/HI/AH/VH, No Social Issues, Heme/Lymph: No Bruising, No Bleeding,No Lymphadenopathy Endocrine : No Polyuria, No Polydipsia, No Temperature Intolerance Mental Status Exam Mental Status Exam Patient Appearance: Appropriate Patient Orientation: Person and Situation Level of Consciousness: Awake and Appropriate Patient Behavior: Guarded and Passive Mood Description: Withdrawn Affect Description: Constricted Patient Cognition Impaired: Yes Ability to Follow Directions: Good Speech Pattern: Clear Memory Description: Intact Diagnostics Vital Signs (24Hr): Vital Signs - 24 hr 12/22/23 20:00 Temperature 98.1 F Pulse Rate 60 Respiratory Rate 18 Blood Pressure 133/62 Pulse Oximetry 97 Oxygen Delivery Method Room Air BMI result Body Mass Index 28.9 Labs 12/07/23 22:16 12/23/23 07:35 Labs: Laboratory Results - last 48 hr 12/21/23 12/22/23 12/22/23 19:58 06:03 20:10 Creatinine Estim Creat Clear Calc Estimated GFR POC Glucose 156 H 114 158 H 12/23/23 12/23/23 06:14 07:35 Creatinine 1.12 Estim Creat Clear Calc 38.8 Estimated GFR 46 POC Glucose 98 Medications Medications Current Medications Acetaminophen (Acetaminophen 325 Mg Tablet) 650 mg PO Q6H PRN PRN Reason: Headache/Pain Mild Scale (1-3) Last Admin: 12/21/23 08:28 Dose: 650 mg Al Hydroxide/Mg Hydroxide (Magnesium Hydrox/Alum Hydrox 30 Ml Oral.Susp) 30 ml PO Q6H PRN PRN Reason: Heartburn/Nausea Allopurinol (Allopurinol 100 Mg Tablet) 100 mg PO DAILY [facility] Last Admin: 12/22/23 08:28 Dose: 100 mg Amlodipine Besylate (Amlodipine Besylate 5 Mg Tablet) 5 mg PO DAILY [facility]; Protocol Last Admin: 12/22/23 08:28 Dose: 5 mg Artificial Tears (Artificial Tears 15 Ml Drops) 2 drop EYE-BOTH Q4H PRN PRN Reason: Dry Eyes Last Admin: 12/20/23 09:17 Dose: 2 drop Atorvastatin Calcium (Atorvastatin Calcium 10 Mg Tablet) 10 mg PO BEDTIME [facility] Last Admin: 12/22/23 20:12 Dose: 10 mg Diphenoxylate HCl/Atropine (Diphenoxylate/Atrop 2.5/0.025 Tablet) 1 tab PO DAILY PRN PRN Reason: Diarrhea Donepezil HCl (Donepezil Hcl 5 Mg Tablet) 5 mg PO BEDTIME [facility] Last Admin: 12/22/23 20:12 Dose: 5 mg Escitalopram Oxalate (Escitalopram Oxalate 10 Mg Tablet) 10 mg PO DAILY [facility] Last Admin: 12/22/23 08:27 Dose: 10 mg Levothyroxine Sodium (Levothyroxine Sodium 88 Mcg Tablet) 88 mcg PO DAILY@0600 [facility] Last Admin: 12/23/23 05:48 Dose: 88 mcg Loperamide HCl (Loperamide Hcl 2 Mg Capsule) 2 mg PO Q4H PRN PRN Reason: Loose Stool Lorazepam (Lorazepam 0.5 Mg Tablet) 0.5 mg PO DAILY PRN PRN Reason: anxiety Last Admin: 12/22/23 20:13 Dose: 0.5 mg Magnesium Hydroxide (Milk Of Magnesia 30 Ml Oral.Susp) 30 ml PO DAILY PRN PRN Reason: Constipation Memantine (Memantine Hcl 5 Mg Tablet) 5 mg PO DAILY [facility] Last Admin: 12/22/23 08:27 Dose: 5 mg Metformin HCl (Metformin Hcl Er 750 Mg Tab.Er.24h) 750 mg PO BEDTIME [facility] Last Admin: 12/22/23 20:13 Dose: 750 mg Metoprolol Succinate (Metoprolol Succinate Er 25 Mg Tab.Er.24h) 25 mg PO DAILY [facility]; Protocol Last Admin: 12/22/23 08:29 Dose: 25 mg Non-Formulary Medication (Patient Own Medication) 1 each PO DAILY [facility] Olanzapine (Olanzapine 2.5 Mg Tablet) 2.5 mg PO Q4H PRN PRN Reason: agitation/acute psychosis Simethicone (Simethicone 80 Mg Tab.Chew) 80 mg PO QIDWMHS PRN PRN Reason: bloating Last Admin: 12/22/23 15:24 Dose: 80 mg Sitagliptin Phosphate (Sitagliptin Phosphate 100 Mg Tablet) 100 mg PO DAILY [facility] Last Admin: 12/22/23 08:28 Dose: 100 mg Spironolactone (Spironolactone 25 Mg Tablet) 12.5 mg PO DAILY [facility]; Protocol Last Admin: 12/22/23 08:27 Dose: 12.5 mg Trazodone HCl (Trazodone Hcl 50 Mg Tablet) 50 mg PO BEDTIME [facility] PRN PRN Reason: Insomnia Vitamin D (Cholecalciferol (Vitamin D3) 25 Mcg Tablet) 25 mcg PO DAILY [facility] Last Admin: 12/22/23 08:27 Dose: 25 mcg Zolpidem Tartrate (Zolpidem Tartrate 5 Mg Tablet) 5 mg PO BEDTIME [facility] Last Admin: 12/22/23 20:13 Dose: 5 mg Allergies Allergies Allergy/AdvReac Type Severity Reaction Status Date / Time codeine Allergy Unknown Verified 12/07/23 20:27 Assessment & Plan Assessment & Plan (1) Dementia with psychotic disturbance: Status: Acute Code(s): F03.92 - Unspecified dementia, unspecified severity, with psychotic disturbance Plan Mrs. Jin is a 83 year-old woman with hx of vascular dementia with delusions of having an affair and some paranoid delusions. Some insight that this may not be the case but pt very much believes and takes action based on delusion despite here reporting that it may not be happening. It is unclear report from [facility] as to suicidal ideation. no indication of imminent harm to self or others, but collateral information is pending from family. May consider antipsychotic. PLAN 1. Restart Namenda. 2. Rexulti was started and increase it to 0.5 p.o. b.i.d. at this point. We are discontinued it on December 18 since the patient has refused to take it and there is no evidence of assaultive behavior. 3. Information of healthcare proxy. 4. Reassessment with results. 12/22: continue current management and treatment plan. Reason for continued inpatient stay Substantial Risk for: inability to function, rapid decompensation and med/psych decompensation Time Spent With Patient Time: Total time managing care of this patient today ____ minutes.
[2023-12-23 10:08] VITALS: BP 134/76; PULSE 61; RESP 17; TEMP 36; O2SAT 98
[2023-12-23] MEDS: Escitalopram Oxalate 10 MG TABLET PO (10:10)
[2023-12-23] MEDS: Memantine HCl 5 MG TABLET PO (10:10)
[2023-12-23] MEDS: SITagliptin Phosphate 100 MG TABLET PO (10:10)
[2023-12-23] MEDS: Metoprolol Succinate ER 25 MG TAB.ER.24H PO (10:11)
[2023-12-23] MEDS: allopurinoL 100 MG TABLET PO (10:11)
[2023-12-23] MEDS: Spironolactone 25 MG TABLET 12.5 MG PO (10:11)
[2023-12-23] MEDS: Cholecalciferol (Vitamin D3) 25 MCG TABLET PO (10:11)
[2023-12-23] MEDS: amLODIPine Besylate 5 MG TABLET PO (10:11)
[2023-12-23] MEDS: Acetaminophen 325 MG TABLET 650 MG PO (16:58)
[2023-12-23 20:00] VITALS: BP 147/65; PULSE 60; RESP 18; TEMP 36.4; O2SAT 98
[2023-12-23 20:01] LABS: Glucose, Whole Blood 162 mg/dL (60-115)
[2023-12-23] MEDS: Zolpidem Tartrate 5 MG TABLET PO (20:23)
[2023-12-23] MEDS: Donepezil HCl 5 MG TABLET PO (20:23)
[2023-12-23] MEDS: Atorvastatin Calcium 10 MG TABLET PO (20:23)
[2023-12-23] MEDS: metFORMIN HCl ER 750 MG TAB.ER.24H PO (20:23)
[2023-12-24] MEDS: Levothyroxine Sodium 88 MCG TABLET PO (05:59)
[2023-12-24 06:42] LABS: Glucose, Whole Blood 97 mg/dL (60-115)
[2023-12-24 08:00] VITALS: BP 132/60; PULSE 51; RESP 16; TEMP 36.1; O2SAT 97
[2023-12-24] MEDS: amLODIPine Besylate 5 MG TABLET PO (08:54)
[2023-12-24] MEDS: SITagliptin Phosphate 100 MG TABLET PO (08:54)
[2023-12-24] MEDS: Spironolactone 25 MG TABLET 12.5 MG PO (08:55)
[2023-12-24] MEDS: Memantine HCl 5 MG TABLET PO (08:55)
[2023-12-24] MEDS: allopurinoL 100 MG TABLET PO (08:55)
[2023-12-24] MEDS: Cholecalciferol (Vitamin D3) 25 MCG TABLET PO (08:55)
[2023-12-24] MEDS: Escitalopram Oxalate 10 MG TABLET PO (08:55)
[2023-12-24] MEDS: Acetaminophen 325 MG TABLET 650 MG PO (11:32)
--- NOTE | 2023-12-24 11:41 | P.PNPSI_ITS ---
Subjective Subjective Date of Service: 12/24/23 Reason For Visit: psychosis Interim History: Patient reports feeling well. She is complaining about not been able to take a shower because of needing a tobias lift. Visible in the milieu and brightens when interacting with others. Wears dark glasses. Hoping to go home with VNA services already in place. no other complaints or requests. pleasant. eating. slept 8 hours. taking meds. Review of Systems Review of Systems Constitutional : No Weight loss, No Fever, No Chills, No Night Sweats, No Fatigue, No Malaise ENT/Mouth : No Hearing loss, No Ear Pain, No Nasal Congestion, No Sinus Pain, No Hoarseness, No sore throat, No Rhinorrhea, No Swallowing Difficulty Eyes: No Eye Pain, No Swelling, No Redness, No Foreign Body, No Discharge, No Vision Changes Cardiovascular : No Chest Pain, No SOB, No Dyspnea on Exertion, No Orthopnea, No Edema, No Palpitations Respiratory : No Cough, No Sputum, No Wheezing, No Smoke Exposure, No Dyspnea Gastrointestinal : No Nausea, No Vomiting, No Diarrhea, No Constipation, No abdominal Pain, No Hematochezia, No Melena Genitourinary : no irregular bleeding, No Dysuria, No Urinary Frequency, No Hematuria, No Urinary Incontinence, No Urgency, No Flank Pain, No Urinary Flow Changes, No Hesitancy Musculoskeletal : No joint pain, No Myalgias, No Joint Swelling Skin : No Skin Lesions, No rash Neuro : No Weakness, No Numbness, No Paresthesias, No Loss of Consciousness, No Dizziness, No Headache Psych : No Anxiety/Panic, No Depression, No SI/HI/AH/VH, No Social Issues, Heme/Lymph: No Bruising, No Bleeding,No Lymphadenopathy Endocrine : No Polyuria, No Polydipsia, No Temperature Intolerance Mental Status Exam Mental Status Exam Patient Appearance: Appropriate Patient Orientation: Person and Situation Level of Consciousness: Awake and Appropriate Patient Behavior: Guarded and Passive Mood Description: Withdrawn Affect Description: Constricted Patient Cognition Impaired: Yes Ability to Follow Directions: Good Speech Pattern: Clear Memory Description: Intact Diagnostics Vital Signs (24Hr): Vital Signs - 24 hr 12/23/23 20:00 12/24/23 08:00 Temperature 97.6 F 96.9 F Pulse Rate 60 51 Respiratory Rate 18 16 Blood Pressure 147/65 H 132/60 Pulse Oximetry 98 97 Oxygen Delivery Method Room Air Room Air BMI result Body Mass Index 28.9 Labs 12/07/23 22:16 12/23/23 07:35 Labs: Laboratory Results - last 48 hr 12/22/23 12/23/23 12/23/23 20:10 06:14 07:35 Creatinine 1.12 Estim Creat Clear Calc 38.8 Estimated GFR 46 POC Glucose 158 H 98 12/23/23 12/24/23 19:52 06:16 Creatinine Estim Creat Clear Calc Estimated GFR POC Glucose 162 H 97 Medications Medications Current Medications Acetaminophen (Acetaminophen 325 Mg Tablet) 650 mg PO Q6H PRN PRN Reason: Headache/Pain Mild Scale (1-3) Last Admin: 12/24/23 11:32 Dose: 650 mg Al Hydroxide/Mg Hydroxide (Magnesium Hydrox/Alum Hydrox 30 Ml Oral.Susp) 30 ml PO Q6H PRN PRN Reason: Heartburn/Nausea Allopurinol (Allopurinol 100 Mg Tablet) 100 mg PO DAILY [facility] Last Admin: 12/24/23 08:55 Dose: 100 mg Amlodipine Besylate (Amlodipine Besylate 5 Mg Tablet) 5 mg PO DAILY [facility]; Protocol Last Admin: 12/24/23 08:54 Dose: 5 mg Artificial Tears (Artificial Tears 15 Ml Drops) 2 drop EYE-BOTH Q4H PRN PRN Reason: Dry Eyes Last Admin: 12/20/23 09:17 Dose: 2 drop Atorvastatin Calcium (Atorvastatin Calcium 10 Mg Tablet) 10 mg PO BEDTIME [facility] Last Admin: 12/23/23 20:23 Dose: 10 mg Diphenoxylate HCl/Atropine (Diphenoxylate/Atrop 2.5/0.025 Tablet) 1 tab PO DAILY PRN PRN Reason: Diarrhea Donepezil HCl (Donepezil Hcl 5 Mg Tablet) 5 mg PO BEDTIME [facility] Last Admin: 12/23/23 20:23 Dose: 5 mg Escitalopram Oxalate (Escitalopram Oxalate 10 Mg Tablet) 10 mg PO DAILY [facility] Last Admin: 12/24/23 08:55 Dose: 10 mg Levothyroxine Sodium (Levothyroxine Sodium 88 Mcg Tablet) 88 mcg PO DAILY@0600 [facility] Last Admin: 12/24/23 05:59 Dose: 88 mcg Loperamide HCl (Loperamide Hcl 2 Mg Capsule) 2 mg PO Q4H PRN PRN Reason: Loose Stool Lorazepam (Lorazepam 0.5 Mg Tablet) 0.5 mg PO DAILY PRN PRN Reason: anxiety Last Admin: 12/22/23 20:13 Dose: 0.5 mg Magnesium Hydroxide (Milk Of Magnesia 30 Ml Oral.Susp) 30 ml PO DAILY PRN PRN Reason: Constipation Memantine (Memantine Hcl 5 Mg Tablet) 5 mg PO DAILY [facility] Last Admin: 12/24/23 08:55 Dose: 5 mg Metformin HCl (Metformin Hcl Er 750 Mg Tab.Er.24h) 750 mg PO BEDTIME [facility] Last Admin: 12/23/23 20:23 Dose: 750 mg Metoprolol Succinate (Metoprolol Succinate Er 25 Mg Tab.Er.24h) 25 mg PO DAILY [facility]; Protocol Last Admin: 12/24/23 08:57 Dose: Not Given Non-Formulary Medication (Patient Own Medication) 1 each PO DAILY [facility] Olanzapine (Olanzapine 2.5 Mg Tablet) 2.5 mg PO Q4H PRN PRN Reason: agitation/acute psychosis Simethicone (Simethicone 80 Mg Tab.Chew) 80 mg PO QIDWMHS PRN PRN Reason: bloating Last Admin: 12/22/23 15:24 Dose: 80 mg Sitagliptin Phosphate (Sitagliptin Phosphate 100 Mg Tablet) 100 mg PO DAILY [facility] Last Admin: 12/24/23 08:54 Dose: 100 mg Spironolactone (Spironolactone 25 Mg Tablet) 12.5 mg PO DAILY [facility]; Protocol Last Admin: 12/24/23 08:55 Dose: 12.5 mg Trazodone HCl (Trazodone Hcl 50 Mg Tablet) 50 mg PO BEDTIME [facility] PRN PRN Reason: Insomnia Vitamin D (Cholecalciferol (Vitamin D3) 25 Mcg Tablet) 25 mcg PO DAILY [facility] Last Admin: 12/24/23 08:55 Dose: 25 mcg Zolpidem Tartrate (Zolpidem Tartrate 5 Mg Tablet) 5 mg PO BEDTIME [facility] Last Admin: 12/23/23 20:23 Dose: 5 mg Allergies Allergies Allergy/AdvReac Type Severity Reaction Status Date / Time codeine Allergy Unknown Verified 12/07/23 20:27 Assessment & Plan Assessment & Plan (1) Dementia with psychotic disturbance: Status: Acute Code(s): F03.92 - Unspecified dementia, unspecified severity, with psychotic disturbance Plan Mrs. Jin is a 83 year-old woman with hx of vascular dementia with delusions of having an affair and some paranoid delusions. Some insight that this may not be the case but pt very much believes and takes action based on delusion despite here reporting that it may not be happening. It is unclear report from [facility] as to suicidal ideation. no indication of imminent harm to self or others, but collateral information is pending from family. May consider antipsychotic. PLAN 1. Restart Namenda. 2. Rexulti was started and increase it to 0.5 p.o. b.i.d. at this point. We are discontinued it on December 18 since the patient has refused to take it and there is no evidence of assaultive behavior. 3. Information of healthcare proxy. 4. Reassessment with results. 12/22: continue current management and treatment plan. 12/23: Continue current management and treatment plan. Reason for continued inpatient stay Substantial Risk for: inability to function, rapid decompensation and med/psych decompensation Time Spent With Patient Time: Total time managing care of this patient today ____ minutes.
[2023-12-24 20:00] VITALS: BP 117/57; PULSE 71; RESP 16; TEMP 36.3; O2SAT 100
[2023-12-24] MEDS: Simethicone 80 MG TAB.CHEW PO (20:29)
[2023-12-24] MEDS: metFORMIN HCl ER 750 MG TAB.ER.24H PO (20:29)
[2023-12-24] MEDS: Cyclobenzaprine HCl 5 MG TABLET PO (20:29)
[2023-12-24] MEDS: Zolpidem Tartrate 5 MG TABLET PO (20:29)
[2023-12-24] MEDS: Donepezil HCl 5 MG TABLET PO (20:29)
[2023-12-24] MEDS: Atorvastatin Calcium 10 MG TABLET PO (20:29)
[2023-12-24 21:02] LABS: Glucose, Whole Blood 157 mg/dL (60-115)
[2023-12-25] MEDS: Levothyroxine Sodium 88 MCG TABLET PO (06:29)
[2023-12-25 06:48] LABS: Glucose, Whole Blood 103 mg/dL (60-115)
[2023-12-25 08:25] VITALS: BP 122/90; PULSE 63; RESP 18; TEMP 36.1; O2SAT 99
[2023-12-25] MEDS: Spironolactone 25 MG TABLET 12.5 MG PO (08:37)
[2023-12-25] MEDS: Memantine HCl 5 MG TABLET PO (08:38)
[2023-12-25] MEDS: Cholecalciferol (Vitamin D3) 25 MCG TABLET PO (08:38)
[2023-12-25] MEDS: Escitalopram Oxalate 10 MG TABLET PO (08:38)
[2023-12-25] MEDS: Metoprolol Succinate ER 25 MG TAB.ER.24H PO (08:38)
[2023-12-25] MEDS: allopurinoL 100 MG TABLET PO (08:39)
[2023-12-25] MEDS: SITagliptin Phosphate 100 MG TABLET PO (08:39)
[2023-12-25] MEDS: amLODIPine Besylate 5 MG TABLET PO (08:39)
[2023-12-25] MEDS: Simethicone 80 MG TAB.CHEW PO ×2 (09:27→20:03)
[2023-12-25] MEDS: Acetaminophen 325 MG TABLET 650 MG PO (10:47)
--- NOTE | 2023-12-25 16:26 | P.PNPSI_ITS ---
Subjective Subjective Date of Service: 12/25/23 Reason For Visit: psychosis Interim History: Patient reports feeling so so because she is yet to get full shower or wash her hair. Able to reason and understand/accept limitations of staff time. Visible in the milieu and brightens when interacting with others. Hoping to go home with VNA services already in place. no other complaints or requests. pleasant. eating. slept 8 hours. taking meds. Review of Systems Review of Systems Constitutional : No Weight loss, No Fever, No Chills, No Night Sweats, No Fatigue, No Malaise ENT/Mouth : No Hearing loss, No Ear Pain, No Nasal Congestion, No Sinus Pain, No Hoarseness, No sore throat, No Rhinorrhea, No Swallowing Difficulty Eyes: No Eye Pain, No Swelling, No Redness, No Foreign Body, No Discharge, No Vision Changes Cardiovascular : No Chest Pain, No SOB, No Dyspnea on Exertion, No Orthopnea, No Edema, No Palpitations Respiratory : No Cough, No Sputum, No Wheezing, No Smoke Exposure, No Dyspnea Gastrointestinal : No Nausea, No Vomiting, No Diarrhea, No Constipation, No abdominal Pain, No Hematochezia, No Melena Genitourinary : no irregular bleeding, No Dysuria, No Urinary Frequency, No Hematuria, No Urinary Incontinence, No Urgency, No Flank Pain, No Urinary Flow Changes, No Hesitancy Musculoskeletal : No joint pain, No Myalgias, No Joint Swelling Skin : No Skin Lesions, No rash Neuro : No Weakness, No Numbness, No Paresthesias, No Loss of Consciousness, No Dizziness, No Headache Psych : No Anxiety/Panic, No Depression, No SI/HI/AH/VH, No Social Issues, Heme/Lymph: No Bruising, No Bleeding,No Lymphadenopathy Endocrine : No Polyuria, No Polydipsia, No Temperature Intolerance Mental Status Exam Mental Status Exam Patient Appearance: Appropriate Patient Orientation: Person and Situation Level of Consciousness: Awake and Appropriate Patient Behavior: Guarded and Passive Mood Description: Withdrawn Affect Description: Constricted Patient Cognition Impaired: Yes Ability to Follow Directions: Good Speech Pattern: Clear Memory Description: Intact Diagnostics Vital Signs (24Hr): Vital Signs - 24 hr 12/24/23 20:00 12/25/23 08:25 Temperature 97.4 F 96.9 F Pulse Rate 71 63 Respiratory Rate 16 18 Blood Pressure 117/57 L 122/90 H Pulse Oximetry 100 99 Oxygen Delivery Method Room Air Room Air BMI result Body Mass Index 28.9 Labs 12/07/23 22:16 12/23/23 07:35 Labs: Laboratory Results - last 48 hr 12/23/23 12/24/23 12/24/23 19:52 06:16 20:27 POC Glucose 162 H 97 157 H 12/25/23 06:32 POC Glucose 103 Medications Medications Current Medications Acetaminophen (Acetaminophen 325 Mg Tablet) 650 mg PO Q6H PRN PRN Reason: Headache/Pain Mild Scale (1-3) Last Admin: 12/25/23 10:47 Dose: 650 mg Al Hydroxide/Mg Hydroxide (Magnesium Hydrox/Alum Hydrox 30 Ml Oral.Susp) 30 ml PO Q6H PRN PRN Reason: Heartburn/Nausea Allopurinol (Allopurinol 100 Mg Tablet) 100 mg PO DAILY [facility] Last Admin: 12/25/23 08:39 Dose: 100 mg Amlodipine Besylate (Amlodipine Besylate 5 Mg Tablet) 5 mg PO DAILY [facility]; Protocol Last Admin: 12/25/23 08:39 Dose: 5 mg Artificial Tears (Artificial Tears 15 Ml Drops) 2 drop EYE-BOTH Q4H PRN PRN Reason: Dry Eyes Last Admin: 12/20/23 09:17 Dose: 2 drop Atorvastatin Calcium (Atorvastatin Calcium 10 Mg Tablet) 10 mg PO BEDTIME [facility] Last Admin: 12/24/23 20:29 Dose: 10 mg Cyclobenzaprine HCl (Cyclobenzaprine Hcl 5 Mg Tablet) 5 mg PO TID PRN PRN Reason: back spasm Last Admin: 12/24/23 20:29 Dose: 5 mg Diphenoxylate HCl/Atropine (Diphenoxylate/Atrop 2.5/0.025 Tablet) 1 tab PO DAILY PRN PRN Reason: Diarrhea Donepezil HCl (Donepezil Hcl 5 Mg Tablet) 5 mg PO BEDTIME [facility] Last Admin: 12/24/23 20:29 Dose: 5 mg Escitalopram Oxalate (Escitalopram Oxalate 10 Mg Tablet) 10 mg PO DAILY [facility] Last Admin: 12/25/23 08:38 Dose: 10 mg Levothyroxine Sodium (Levothyroxine Sodium 88 Mcg Tablet) 88 mcg PO DAILY@0600 [facility] Last Admin: 12/25/23 06:29 Dose: 88 mcg Loperamide HCl (Loperamide Hcl 2 Mg Capsule) 2 mg PO Q4H PRN PRN Reason: Loose Stool Lorazepam (Lorazepam 0.5 Mg Tablet) 0.5 mg PO DAILY PRN PRN Reason: anxiety Last Admin: 12/22/23 20:13 Dose: 0.5 mg Magnesium Hydroxide (Milk Of Magnesia 30 Ml Oral.Susp) 30 ml PO DAILY PRN PRN Reason: Constipation Memantine (Memantine Hcl 5 Mg Tablet) 5 mg PO DAILY [facility] Last Admin: 12/25/23 08:38 Dose: 5 mg Metformin HCl (Metformin Hcl Er 750 Mg Tab.Er.24h) 750 mg PO BEDTIME [facility] Last Admin: 12/24/23 20:29 Dose: 750 mg Metoprolol Succinate (Metoprolol Succinate Er 25 Mg Tab.Er.24h) 25 mg PO DAILY [facility]; Protocol Last Admin: 12/25/23 08:38 Dose: 25 mg Non-Formulary Medication (Patient Own Medication) 1 each PO DAILY [facility] Olanzapine (Olanzapine 2.5 Mg Tablet) 2.5 mg PO Q4H PRN PRN Reason: agitation/acute psychosis Simethicone (Simethicone 80 Mg Tab.Chew) 80 mg PO QIDWMHS PRN PRN Reason: bloating Last Admin: 12/25/23 09:27 Dose: 80 mg Sitagliptin Phosphate (Sitagliptin Phosphate 100 Mg Tablet) 100 mg PO DAILY [facility] Last Admin: 12/25/23 08:39 Dose: 100 mg Spironolactone (Spironolactone 25 Mg Tablet) 12.5 mg PO DAILY [facility]; Protocol Last Admin: 12/25/23 08:37 Dose: 12.5 mg Trazodone HCl (Trazodone Hcl 50 Mg Tablet) 50 mg PO BEDTIME [facility] PRN PRN Reason: Insomnia Vitamin D (Cholecalciferol (Vitamin D3) 25 Mcg Tablet) 25 mcg PO DAILY [facility] Last Admin: 12/25/23 08:38 Dose: 25 mcg Zolpidem Tartrate (Zolpidem Tartrate 5 Mg Tablet) 5 mg PO BEDTIME [facility] Last Admin: 12/24/23 20:29 Dose: 5 mg Allergies Allergies Allergy/AdvReac Type Severity Reaction Status Date / Time codeine Allergy Unknown Verified 12/07/23 20:27 Assessment & Plan Assessment & Plan (1) Dementia with psychotic disturbance: Status: Acute Code(s): F03.92 - Unspecified dementia, unspecified severity, with psychotic disturbance Plan Mrs. Jin is a 83 year-old woman with hx of vascular dementia with delusions of having an affair and some paranoid delusions. Some insight that this may not be the case but pt very much believes and takes action based on delusion despite here reporting that it may not be happening. It is unclear report from [facility] as to suicidal ideation. no indication of imminent harm to self or others, but collateral information is pending from family. May consider antipsychotic. PLAN 1. Restart Namenda. 2. Rexulti was started and increase it to 0.5 p.o. b.i.d. at this point. We are discontinued it on December 18 since the patient has refused to take it and there is no evidence of assaultive behavior. 3. Information of healthcare proxy. 4. Reassessment with results. 12/22: continue current management and treatment plan. 12/23: Continue current management and treatment plan. 12/24: Continue current management and treatment plan. Reason for continued inpatient stay Substantial Risk for: inability to function and rapid decompensation Time Spent With Patient Time: Total time managing care of this patient today ____ minutes.
[2023-12-25 20:00] VITALS: BP 119/55; PULSE 69; RESP 16; TEMP 36.3; O2SAT 96
[2023-12-25] MEDS: Zolpidem Tartrate 5 MG TABLET PO (20:03)
[2023-12-25] MEDS: Donepezil HCl 5 MG TABLET PO (20:03)
[2023-12-25] MEDS: Atorvastatin Calcium 10 MG TABLET PO (20:03)
[2023-12-25] MEDS: metFORMIN HCl ER 750 MG TAB.ER.24H PO (20:03)
[2023-12-25 20:28] LABS: Glucose, Whole Blood 200 mg/dL (60-115)
[2023-12-26] MEDS: Levothyroxine Sodium 88 MCG TABLET PO (06:33)
[2023-12-26 06:46] LABS: Glucose, Whole Blood 93 mg/dL (60-115)
[2023-12-26 08:00] VITALS: BP 143/64; PULSE 62; RESP 18; TEMP 36.4; O2SAT 97
[2023-12-26] MEDS: allopurinoL 100 MG TABLET PO (08:49)
[2023-12-26] MEDS: Escitalopram Oxalate 10 MG TABLET PO (08:49)
[2023-12-26] MEDS: Cholecalciferol (Vitamin D3) 25 MCG TABLET PO (08:49)
[2023-12-26] MEDS: SITagliptin Phosphate 100 MG TABLET PO (08:49)
[2023-12-26] MEDS: Memantine HCl 5 MG TABLET PO (08:49)
[2023-12-26 09:21] VITALS: BP 143/64; PULSE 62
[2023-12-26] MEDS: Metoprolol Succinate ER 25 MG TAB.ER.24H PO (09:21)
[2023-12-26 09:22] VITALS: BP 143/64
[2023-12-26] MEDS: Spironolactone 25 MG TABLET 12.5 MG PO (09:22)
[2023-12-26] MEDS: amLODIPine Besylate 5 MG TABLET PO (09:22)
[2023-12-26] MEDS: Simethicone 80 MG TAB.CHEW PO ×2 (10:37→17:28)
[2023-12-26] MEDS: Artificial Tears 15 ML DROPS 2 DROP EYE-BOTH (10:48)
--- NOTE | 2023-12-26 12:28 | P.PNPSI_ITS ---
Subjective Subjective Date of Service: 12/26/23 Reason For Visit: psychosis Subjective Notes: Section 7 and Section 8 Interim History: The nursing staff reported the patient has shown brighter affect, she slept 6 hours. The social media intern reported that she started to refer her to several facilities. On interview the patient denies new symptoms, waiting for placement. Mental Status Exam Mental Status Exam Patient Appearance: Appropriate Patient Orientation: Person and Situation Level of Consciousness: Awake and Appropriate Patient Behavior: Guarded and Passive Mood Description: Constricted Affect Description: Calm Patient Cognition Impaired: Yes Ability to Follow Directions: Good Speech Pattern: Clear Hallucinations: None Delusions: Ideas of Reference Thought Process: Distracted and Slowed Thinking Thought Content: positive for [place] and positive for Poverty of Content Judgement: Poor Diagnostics Vital Signs (24Hr): Vital Signs - 24 hr 12/25/23 20:00 12/26/23 08:00 12/26/23 09:21 Temperature 97.4 F 97.5 F Pulse Rate 69 62 62 Respiratory Rate 16 18 Blood Pressure 119/55 L 143/64 H 143/64 H Pulse Oximetry 96 97 Oxygen Delivery Method Room Air Room Air 12/26/23 09:22 12/26/23 09:22 Temperature Pulse Rate Respiratory Rate Blood Pressure 143/64 H 143/64 H Pulse Oximetry Oxygen Delivery Method BMI result Body Mass Index 28.9 Labs 12/07/23 22:16 12/23/23 07:35 Labs: Laboratory Results - last 48 hr 12/24/23 12/25/23 12/25/23 20:27 06:32 20:02 POC Glucose 157 H 103 200 H 12/26/23 06:37 POC Glucose 93 Medications Medications Current Medications Acetaminophen (Acetaminophen 325 Mg Tablet) 650 mg PO Q6H PRN PRN Reason: Headache/Pain Mild Scale (1-3) Last Admin: 12/25/23 10:47 Dose: 650 mg Al Hydroxide/Mg Hydroxide (Magnesium Hydrox/Alum Hydrox 30 Ml Oral.Susp) 30 ml PO Q6H PRN PRN Reason: Heartburn/Nausea Allopurinol (Allopurinol 100 Mg Tablet) 100 mg PO DAILY [facility] Last Admin: 12/26/23 08:49 Dose: 100 mg Amlodipine Besylate (Amlodipine Besylate 5 Mg Tablet) 5 mg PO DAILY [facility]; Protocol Last Admin: 12/26/23 09:22 Dose: 5 mg Artificial Tears (Artificial Tears 15 Ml Drops) 2 drop EYE-BOTH Q4H PRN PRN Reason: Dry Eyes Last Admin: 12/26/23 10:48 Dose: 2 drop Atorvastatin Calcium (Atorvastatin Calcium 10 Mg Tablet) 10 mg PO BEDTIME [facility] Last Admin: 12/25/23 20:03 Dose: 10 mg Cyclobenzaprine HCl (Cyclobenzaprine Hcl 5 Mg Tablet) 5 mg PO TID PRN PRN Reason: back spasm Last Admin: 12/24/23 20:29 Dose: 5 mg Diphenoxylate HCl/Atropine (Diphenoxylate/Atrop 2.5/0.025 Tablet) 1 tab PO DAILY PRN PRN Reason: Diarrhea Donepezil HCl (Donepezil Hcl 5 Mg Tablet) 5 mg PO BEDTIME [facility] Last Admin: 12/25/23 20:03 Dose: 5 mg Escitalopram Oxalate (Escitalopram Oxalate 10 Mg Tablet) 10 mg PO DAILY [facility] Last Admin: 12/26/23 08:49 Dose: 10 mg Levothyroxine Sodium (Levothyroxine Sodium 88 Mcg Tablet) 88 mcg PO DAILY@0600 [facility] Last Admin: 12/26/23 06:33 Dose: 88 mcg Loperamide HCl (Loperamide Hcl 2 Mg Capsule) 2 mg PO Q4H PRN PRN Reason: Loose Stool Lorazepam (Lorazepam 0.5 Mg Tablet) 0.5 mg PO DAILY PRN PRN Reason: anxiety Last Admin: 12/22/23 20:13 Dose: 0.5 mg Magnesium Hydroxide (Milk Of Magnesia 30 Ml Oral.Susp) 30 ml PO DAILY PRN PRN Reason: Constipation Memantine (Memantine Hcl 5 Mg Tablet) 5 mg PO DAILY [facility] Last Admin: 12/26/23 08:49 Dose: 5 mg Metformin HCl (Metformin Hcl Er 750 Mg Tab.Er.24h) 750 mg PO BEDTIME [facility] Last Admin: 12/25/23 20:03 Dose: 750 mg Metoprolol Succinate (Metoprolol Succinate Er 25 Mg Tab.Er.24h) 25 mg PO DAILY [facility]; Protocol Last Admin: 12/26/23 09:21 Dose: 25 mg Non-Formulary Medication (Patient Own Medication) 1 each PO DAILY [facility] Olanzapine (Olanzapine 2.5 Mg Tablet) 2.5 mg PO Q4H PRN PRN Reason: agitation/acute psychosis Simethicone (Simethicone 80 Mg Tab.Chew) 80 mg PO QIDWMHS PRN PRN Reason: bloating Last Admin: 12/26/23 10:37 Dose: 80 mg Sitagliptin Phosphate (Sitagliptin Phosphate 100 Mg Tablet) 100 mg PO DAILY [facility] Last Admin: 12/26/23 08:49 Dose: 100 mg Spironolactone (Spironolactone 25 Mg Tablet) 12.5 mg PO DAILY [facility]; Protocol Last Admin: 12/26/23 09:22 Dose: 12.5 mg Trazodone HCl (Trazodone Hcl 50 Mg Tablet) 50 mg PO BEDTIME [facility] PRN PRN Reason: Insomnia Vitamin D (Cholecalciferol (Vitamin D3) 25 Mcg Tablet) 25 mcg PO DAILY [facility] Last Admin: 12/26/23 08:49 Dose: 25 mcg Zolpidem Tartrate (Zolpidem Tartrate 5 Mg Tablet) 5 mg PO BEDTIME [facility] Last Admin: 12/25/23 20:03 Dose: 5 mg Allergies Allergies Allergy/AdvReac Type Severity Reaction Status Date / Time codeine Allergy Unknown Verified 12/07/23 20:27 Assessment & Plan Assessment & Plan (1) Dementia with psychotic disturbance: Status: Acute Code(s): F03.92 - Unspecified dementia, unspecified severity, with psychotic disturbance Plan Mrs. Jin is a 83 year-old woman with hx of vascular dementia with delusions of having an affair and some paranoid delusions. Some insight that this may not be the case but pt very much believes and takes action based on delusion despite here reporting that it may not be happening. It is unclear report from [facility] as to suicidal ideation. no indication of imminent harm to self or others, but collateral information is pending from family. May consider antipsychotic. PLAN 1. Restart Namenda. 2. Rexulti was started and increase it to 0.5 p.o. b.i.d. at this point. We are discontinued it on December 18 since the patient has refused to take it and there is no evidence of assaultive behavior. 3. Information of healthcare proxy. 4. Reassessment with results. Reason for continued inpatient stay Substantial Risk for: inability to function, rapid decompensation and med/psych decompensation Time Spent With Patient Time: Total time managing care of this patient today __20__ minutes.
[2023-12-26] MEDS: Acetaminophen 325 MG TABLET 650 MG PO ×2 (12:55→20:30)
[2023-12-26 20:00] VITALS: BP 130/61; PULSE 61; RESP 18; TEMP 36.4; O2SAT 97
[2023-12-26] MEDS: Donepezil HCl 5 MG TABLET PO (20:30)
[2023-12-26] MEDS: Zolpidem Tartrate 5 MG TABLET PO (20:30)
[2023-12-26] MEDS: metFORMIN HCl ER 750 MG TAB.ER.24H PO (20:30)
[2023-12-26] MEDS: Atorvastatin Calcium 10 MG TABLET PO (20:30)
[2023-12-26 21:10] LABS: Glucose, Whole Blood 216 mg/dL (60-115)
[2023-12-27] MEDS: Levothyroxine Sodium 88 MCG TABLET PO (06:36)
[2023-12-27 06:53] LABS: Glucose, Whole Blood 110 mg/dL (60-115)
[2023-12-27 08:22] VITALS: BP 124/66; PULSE 65; RESP 18; TEMP 36.4; O2SAT 98
[2023-12-27] MEDS: Memantine HCl 5 MG TABLET PO (08:34)
[2023-12-27] MEDS: Spironolactone 25 MG TABLET 12.5 MG PO (08:34)
[2023-12-27] MEDS: SITagliptin Phosphate 100 MG TABLET PO (08:34)
[2023-12-27] MEDS: Escitalopram Oxalate 10 MG TABLET PO (08:34)
[2023-12-27] MEDS: Cholecalciferol (Vitamin D3) 25 MCG TABLET PO (08:34)
[2023-12-27] MEDS: Metoprolol Succinate ER 25 MG TAB.ER.24H PO (08:34)
[2023-12-27] MEDS: allopurinoL 100 MG TABLET PO (08:34)
[2023-12-27] MEDS: Acetaminophen 325 MG TABLET 650 MG PO ×2 (08:35→21:15)
[2023-12-27] MEDS: amLODIPine Besylate 5 MG TABLET PO (08:37)
[2023-12-27] MEDS: Simethicone 80 MG TAB.CHEW PO (08:37)
[2023-12-27] MEDS: PT OWN (Cyclosporine [Restasis] 0.05 % Dropperette) 1 EACH EYE-BOTH (08:38)
--- NOTE | 2023-12-27 13:59 | P.PNPSI_ITS ---
Subjective Subjective Date of Service: 12/27/23 Reason For Visit: psychosis Subjective Notes: Conditional Voluntary Interim History: The nursing staff reported the patient had been compliant with medications she stated that she wants to go to retirement facility. She has been pleasant and cooperative. The medical social worker reported that they have referred to 66 retirement facilities, waiting for response. On interview the patient denies new symptoms, waiting for placement. Mental Status Exam Mental Status Exam Patient Appearance: Appropriate Patient Orientation: Person and Situation Level of Consciousness: Awake Patient Behavior: Guarded and Passive Mood Description: Constricted Affect Description: Calm Patient Cognition Impaired: Yes Ability to Follow Directions: Good Speech Pattern: Clear Hallucinations: None Delusions: Not Present Thought Process: Distracted and Slowed Thinking Thought Content: positive for [place] and positive for Circumstantial Judgement: Fair Diagnostics Vital Signs (24Hr): Vital Signs - 24 hr 12/26/23 20:00 12/27/23 08:22 Temperature 97.6 F 97.6 F Pulse Rate 61 65 Respiratory Rate 18 18 Blood Pressure 130/61 124/66 Pulse Oximetry 97 98 Oxygen Delivery Method Room Air Room Air BMI result Body Mass Index 28.9 Labs 12/07/23 22:16 12/23/23 07:35 Labs: Laboratory Results - last 48 hr 12/25/23 12/26/23 12/26/23 20:02 06:37 20:29 POC Glucose 200 H 93 216 H 12/27/23 06:36 POC Glucose 110 Medications Medications Current Medications Acetaminophen (Acetaminophen 325 Mg Tablet) 650 mg PO Q6H PRN PRN Reason: Headache/Pain Mild Scale (1-3) Last Admin: 12/27/23 08:35 Dose: 650 mg Al Hydroxide/Mg Hydroxide (Magnesium Hydrox/Alum Hydrox 30 Ml Oral.Susp) 30 ml PO Q6H PRN PRN Reason: Heartburn/Nausea Allopurinol (Allopurinol 100 Mg Tablet) 100 mg PO DAILY [facility] Last Admin: 12/27/23 08:34 Dose: 100 mg Amlodipine Besylate (Amlodipine Besylate 5 Mg Tablet) 5 mg PO DAILY [facility]; Protocol Last Admin: 12/27/23 08:37 Dose: 5 mg Artificial Tears (Artificial Tears 15 Ml Drops) 2 drop EYE-BOTH Q4H PRN PRN Reason: Dry Eyes Last Admin: 12/26/23 10:48 Dose: 2 drop Atorvastatin Calcium (Atorvastatin Calcium 10 Mg Tablet) 10 mg PO BEDTIME [facility] Last Admin: 12/26/23 20:30 Dose: 10 mg Cyclobenzaprine HCl (Cyclobenzaprine Hcl 5 Mg Tablet) 5 mg PO TID PRN PRN Reason: back spasm Last Admin: 12/24/23 20:29 Dose: 5 mg Diphenoxylate HCl/Atropine (Diphenoxylate/Atrop 2.5/0.025 Tablet) 1 tab PO DAILY PRN PRN Reason: Diarrhea Donepezil HCl (Donepezil Hcl 5 Mg Tablet) 5 mg PO BEDTIME [facility] Last Admin: 12/26/23 20:30 Dose: 5 mg Escitalopram Oxalate (Escitalopram Oxalate 10 Mg Tablet) 10 mg PO DAILY [facility] Last Admin: 12/27/23 08:34 Dose: 10 mg Levothyroxine Sodium (Levothyroxine Sodium 88 Mcg Tablet) 88 mcg PO DAILY@0600 [facility] Last Admin: 12/27/23 06:36 Dose: 88 mcg Loperamide HCl (Loperamide Hcl 2 Mg Capsule) 2 mg PO Q4H PRN PRN Reason: Loose Stool Lorazepam (Lorazepam 0.5 Mg Tablet) 0.5 mg PO DAILY PRN PRN Reason: anxiety Last Admin: 12/22/23 20:13 Dose: 0.5 mg Magnesium Hydroxide (Milk Of Magnesia 30 Ml Oral.Susp) 30 ml PO DAILY PRN PRN Reason: Constipation Memantine (Memantine Hcl 5 Mg Tablet) 5 mg PO DAILY [facility] Last Admin: 12/27/23 08:34 Dose: 5 mg Metformin HCl (Metformin Hcl Er 750 Mg Tab.Er.24h) 750 mg PO BEDTIME [facility] Last Admin: 12/26/23 20:30 Dose: 750 mg Metoprolol Succinate (Metoprolol Succinate Er 25 Mg Tab.Er.24h) 25 mg PO DAILY [facility]; Protocol Last Admin: 12/27/23 08:34 Dose: 25 mg Pt Own (Cyclosporine [Restasis] 0.05 % Dropperette) 1 drop EYE-BOTH DAILY [facility] Last Admin: 12/27/23 08:38 Dose: 1 drop Olanzapine (Olanzapine 2.5 Mg Tablet) 2.5 mg PO Q4H PRN PRN Reason: agitation/acute psychosis Simethicone (Simethicone 80 Mg Tab.Chew) 80 mg PO QIDWMHS PRN PRN Reason: bloating Last Admin: 12/27/23 08:37 Dose: 80 mg Sitagliptin Phosphate (Sitagliptin Phosphate 100 Mg Tablet) 100 mg PO DAILY [facility] Last Admin: 12/27/23 08:34 Dose: 100 mg Spironolactone (Spironolactone 25 Mg Tablet) 12.5 mg PO DAILY [facility]; Protocol Last Admin: 12/27/23 08:34 Dose: 12.5 mg Trazodone HCl (Trazodone Hcl 50 Mg Tablet) 50 mg PO BEDTIME [facility] PRN PRN Reason: Insomnia Vitamin D (Cholecalciferol (Vitamin D3) 25 Mcg Tablet) 25 mcg PO DAILY [facility] Last Admin: 12/27/23 08:34 Dose: 25 mcg Zolpidem Tartrate (Zolpidem Tartrate 5 Mg Tablet) 5 mg PO BEDTIME [facility] Last Admin: 12/26/23 20:30 Dose: 5 mg Allergies Allergies Allergy/AdvReac Type Severity Reaction Status Date / Time codeine Allergy Unknown Verified 12/07/23 20:27 Assessment & Plan Assessment & Plan (1) Dementia with psychotic disturbance: Status: Acute Code(s): F03.92 - Unspecified dementia, unspecified severity, with psychotic disturbance Plan Mrs. Jin is a 83 year-old woman with hx of vascular dementia with delusions of having an affair and some paranoid delusions. Some insight that this may not be the case but pt very much believes and takes action based on delusion despite here reporting that it may not be happening. It is unclear report from [facility] as to suicidal ideation. no indication of imminent harm to self or others, but collateral information is pending from family. May consider antipsychotic. PLAN 1. Restart Namenda. 2. Rexulti was started and increase it to 0.5 p.o. b.i.d. at this point. We are discontinued it on December 18 since the patient has refused to take it and there is no evidence of assaultive behavior. 3. Information of healthcare proxy. 4. Reassessment with results. Reason for continued inpatient stay Substantial Risk for: inability to function, rapid decompensation and med/psych decompensation Time Spent With Patient Time: Total time managing care of this patient today _20___ minutes.
[2023-12-27 20:00] VITALS: BP 134/60; PULSE 58; RESP 16; TEMP 36; O2SAT 98
[2023-12-27 20:06] LABS: Glucose, Whole Blood 182 mg/dL (60-115)
[2023-12-27] MEDS: Atorvastatin Calcium 10 MG TABLET PO (21:07)
[2023-12-27] MEDS: metFORMIN HCl ER 750 MG TAB.ER.24H PO (21:08)
[2023-12-27] MEDS: Donepezil HCl 5 MG TABLET PO (21:08)
[2023-12-27] MEDS: Zolpidem Tartrate 5 MG TABLET PO (21:08)
[2023-12-28] MEDS: Levothyroxine Sodium 88 MCG TABLET PO (05:31)
[2023-12-28 06:17] LABS: Glucose, Whole Blood 101 mg/dL (60-115)
[2023-12-28 08:00] VITALS: BP 138/63; PULSE 68; RESP 16; O2SAT 97
[2023-12-28] MEDS: Memantine HCl 5 MG TABLET PO (09:55)
[2023-12-28] MEDS: allopurinoL 100 MG TABLET PO (09:55)
[2023-12-28] MEDS: Metoprolol Succinate ER 25 MG TAB.ER.24H PO (09:56)
[2023-12-28] MEDS: amLODIPine Besylate 5 MG TABLET PO (09:57)
[2023-12-28] MEDS: Escitalopram Oxalate 10 MG TABLET PO (09:57)
[2023-12-28] MEDS: SITagliptin Phosphate 100 MG TABLET PO (09:57)
[2023-12-28] MEDS: Spironolactone 25 MG TABLET 12.5 MG PO (09:57)
[2023-12-28] MEDS: Cholecalciferol (Vitamin D3) 25 MCG TABLET PO (09:57)
[2023-12-28] MEDS: PT OWN (Cyclosporine [Restasis] 0.05 % Dropperette) 1 EACH EYE-BOTH (10:04)
[2023-12-28 10:40] VITALS: BMI 29.1
[2023-12-28] MEDS: Simethicone 80 MG TAB.CHEW PO ×2 (11:10→20:10)
--- NOTE | 2023-12-28 13:02 | P.PNPSI_ITS ---
Subjective Subjective Date of Service: 12/28/23 Reason For Visit: psychosis Subjective Notes: Conditional Voluntary Interim History: The nursing staff reported the patient had been pleasant, cooperative no evidence of delusions. She slept 6 hours. The medical social worker reported that she had been accepted in 3 places and we are waiting for financial clearance. On interview the patient denies new symptoms, waiting for placement. Mental Status Exam Mental Status Exam Patient Appearance: Well Grooomed and Appropriate Patient Orientation: Person and Situation Level of Consciousness: Awake and Appropriate Patient Behavior: Guarded and Passive Mood Description: Withdrawn Affect Description: Constricted Patient Cognition Impaired: Yes Ability to Follow Directions: Good Speech Pattern: Clear Hallucinations: None Delusions: Ideas of Reference Thought Process: Distracted and Slowed Thinking Thought Content: positive for [place] and positive for Poverty of Content Judgement: Fair Diagnostics Vital Signs (24Hr): Vital Signs - 24 hr 12/27/23 20:00 12/28/23 08:00 Temperature 96.8 F Pulse Rate 58 68 Respiratory Rate 16 16 Blood Pressure 134/60 138/63 Pulse Oximetry 98 97 Oxygen Delivery Method Room Air Room Air BMI result Body Mass Index 29.1 Labs 12/07/23 22:16 12/23/23 07:35 Labs: Laboratory Results - last 48 hr 12/26/23 12/27/23 12/27/23 20:29 06:36 20:01 POC Glucose 216 H 110 182 H 12/28/23 06:06 POC Glucose 101 Medications Medications Current Medications Acetaminophen (Acetaminophen 325 Mg Tablet) 650 mg PO Q6H PRN PRN Reason: Headache/Pain Mild Scale (1-3) Last Admin: 12/27/23 21:15 Dose: 650 mg Al Hydroxide/Mg Hydroxide (Magnesium Hydrox/Alum Hydrox 30 Ml Oral.Susp) 30 ml PO Q6H PRN PRN Reason: Heartburn/Nausea Allopurinol (Allopurinol 100 Mg Tablet) 100 mg PO DAILY [facility] Last Admin: 12/28/23 09:55 Dose: 100 mg Amlodipine Besylate (Amlodipine Besylate 5 Mg Tablet) 5 mg PO DAILY [facility]; Protocol Last Admin: 12/28/23 09:57 Dose: 5 mg Artificial Tears (Artificial Tears 15 Ml Drops) 2 drop EYE-BOTH Q4H PRN PRN Reason: Dry Eyes Last Admin: 12/26/23 10:48 Dose: 2 drop Atorvastatin Calcium (Atorvastatin Calcium 10 Mg Tablet) 10 mg PO BEDTIME [facility] Last Admin: 12/27/23 21:07 Dose: 10 mg Cyclobenzaprine HCl (Cyclobenzaprine Hcl 5 Mg Tablet) 5 mg PO TID PRN PRN Reason: back spasm Last Admin: 12/24/23 20:29 Dose: 5 mg Diphenoxylate HCl/Atropine (Diphenoxylate/Atrop 2.5/0.025 Tablet) 1 tab PO DAILY PRN PRN Reason: Diarrhea Donepezil HCl (Donepezil Hcl 5 Mg Tablet) 5 mg PO BEDTIME [facility] Last Admin: 12/27/23 21:08 Dose: 5 mg Escitalopram Oxalate (Escitalopram Oxalate 10 Mg Tablet) 10 mg PO DAILY [facility] Last Admin: 12/28/23 09:57 Dose: 10 mg Levothyroxine Sodium (Levothyroxine Sodium 88 Mcg Tablet) 88 mcg PO DAILY@0600 [facility] Last Admin: 12/28/23 05:31 Dose: 88 mcg Loperamide HCl (Loperamide Hcl 2 Mg Capsule) 2 mg PO Q4H PRN PRN Reason: Loose Stool Lorazepam (Lorazepam 0.5 Mg Tablet) 0.5 mg PO DAILY PRN PRN Reason: anxiety Last Admin: 12/22/23 20:13 Dose: 0.5 mg Magnesium Hydroxide (Milk Of Magnesia 30 Ml Oral.Susp) 30 ml PO DAILY PRN PRN Reason: Constipation Memantine (Memantine Hcl 5 Mg Tablet) 5 mg PO DAILY [facility] Last Admin: 12/28/23 09:55 Dose: 5 mg Metformin HCl (Metformin Hcl Er 750 Mg Tab.Er.24h) 750 mg PO BEDTIME [facility] Last Admin: 12/27/23 21:08 Dose: 750 mg Metoprolol Succinate (Metoprolol Succinate Er 25 Mg Tab.Er.24h) 25 mg PO DAILY [facility]; Protocol Last Admin: 12/28/23 09:56 Dose: 25 mg Pt Own (Cyclosporine [Restasis] 0.05 % Dropperette) 1 drop EYE-BOTH DAILY [facility] Last Admin: 12/28/23 10:04 Dose: 1 drop Olanzapine (Olanzapine 2.5 Mg Tablet) 2.5 mg PO Q4H PRN PRN Reason: agitation/acute psychosis Simethicone (Simethicone 80 Mg Tab.Chew) 80 mg PO QIDWMHS PRN PRN Reason: bloating Last Admin: 12/28/23 11:10 Dose: 80 mg Sitagliptin Phosphate (Sitagliptin Phosphate 100 Mg Tablet) 100 mg PO DAILY [facility] Last Admin: 12/28/23 09:57 Dose: 100 mg Spironolactone (Spironolactone 25 Mg Tablet) 12.5 mg PO DAILY [facility]; Protocol Last Admin: 12/28/23 09:57 Dose: 12.5 mg Trazodone HCl (Trazodone Hcl 50 Mg Tablet) 50 mg PO BEDTIME MRX1 PRN PRN Reason: Insomnia Vitamin D (Cholecalciferol (Vitamin D3) 25 Mcg Tablet) 25 mcg PO DAILY [facility] Last Admin: 12/28/23 09:57 Dose: 25 mcg Zolpidem Tartrate (Zolpidem Tartrate 5 Mg Tablet) 5 mg PO BEDTIME [facility] Last Admin: 12/27/23 21:08 Dose: 5 mg Allergies Allergies Allergy/AdvReac Type Severity Reaction Status Date / Time codeine Allergy Unknown Verified 12/07/23 20:27 Assessment & Plan Assessment & Plan (1) Dementia with psychotic disturbance: Status: Acute Code(s): F03.92 - Unspecified dementia, unspecified severity, with psychotic disturbance Plan Mrs. Jin is a 83 year-old woman with hx of vascular dementia with delusions of having an affair and some paranoid delusions. Some insight that this may not be the case but pt very much believes and takes action based on delusion despite here reporting that it may not be happening. It is unclear report from [facility] as to suicidal ideation. no indication of imminent harm to self or others, but collateral information is pending from family. May consider antipsychotic. PLAN 1. Restart Namenda. 2. Rexulti was started and increase it to 0.5 p.o. b.i.d. at this point. We are discontinued it on December 18 since the patient has refused to take it and there is no evidence of assaultive behavior. 3. Information of healthcare proxy. 4. Reassessment with results. Reason for continued inpatient stay Substantial Risk for: inability to function, rapid decompensation and med/psych decompensation Time Spent With Patient Time: Total time managing care of this patient today __20__ minutes.
[2023-12-28] MEDS: Acetaminophen 325 MG TABLET 650 MG PO (13:38)
[2023-12-28 17:59] VITALS: TEMP 36.7
[2023-12-28 20:00] VITALS: BP 109/52; PULSE 66; RESP 16; TEMP 36.1; O2SAT 97
[2023-12-28] MEDS: Donepezil HCl 5 MG TABLET PO (20:11)
[2023-12-28] MEDS: Atorvastatin Calcium 10 MG TABLET PO (20:11)
[2023-12-28] MEDS: Zolpidem Tartrate 5 MG TABLET PO (20:11)
[2023-12-28] MEDS: metFORMIN HCl ER 750 MG TAB.ER.24H PO (20:11)
[2023-12-28 20:27] LABS: Glucose, Whole Blood 211 mg/dL (60-115)
[2023-12-29 06:03] LABS: Glucose, Whole Blood 97 mg/dL (60-115)
[2023-12-29] MEDS: Levothyroxine Sodium 88 MCG TABLET PO (06:20)
[2023-12-29 08:28] VITALS: BP 118/58; PULSE 53; RESP 17; TEMP 36.2; O2SAT 97
[2023-12-29] MEDS: Cholecalciferol (Vitamin D3) 25 MCG TABLET PO (08:31)
[2023-12-29] MEDS: allopurinoL 100 MG TABLET PO (08:31)
[2023-12-29] MEDS: Memantine HCl 5 MG TABLET PO (08:31)
[2023-12-29] MEDS: SITagliptin Phosphate 100 MG TABLET PO (08:31)
[2023-12-29] MEDS: Spironolactone 25 MG TABLET 12.5 MG PO (08:31)
[2023-12-29] MEDS: amLODIPine Besylate 5 MG TABLET PO (08:31)
[2023-12-29] MEDS: Escitalopram Oxalate 10 MG TABLET PO (08:31)
[2023-12-29] MEDS: PT OWN (Cyclosporine [Restasis] 0.05 % Dropperette) 1 EACH EYE-BOTH (08:33)
[2023-12-29] MEDS: Simethicone 80 MG TAB.CHEW PO ×2 (08:56→18:28)
[2023-12-29] MEDS: Acetaminophen 325 MG TABLET 650 MG PO (08:56)
--- NOTE | 2023-12-29 14:02 | HO.PSYCHPN ---
Subjective Subjective Date of Service: 12/29/23 Reason For Visit: psychosis Subjective Notes: Conditional Voluntary Interim History: The nursing staff reported the patient had been compliant with treatment, pleasant, confused at times but easily redirectable. She is future oriented and she is waiting for transfer. She slept 8 hours. On interview the patient denies new symptoms willing to go to a detention facility. Mental Status Exam Mental Status Exam Patient Appearance: Appropriate Patient Orientation: Person and Situation Level of Consciousness: Awake Patient Behavior: Appropriate Mood Description: Calm Affect Description: Constricted Patient Cognition Impaired: Yes Ability to Follow Directions: Good Speech Pattern: Clear Hallucinations: None Delusions: Not Present Thought Process: Distracted and Slowed Thinking Thought Content: positive for [place] and positive for Poverty of Content Judgement: Fair Diagnostics Vital Signs (24Hr): Vital Signs - 24 hr 12/28/23 17:59 12/28/23 20:00 12/29/23 08:28 Temperature 98.0 F 97 F 97.2 F Pulse Rate 66 53 Respiratory Rate 16 17 Blood Pressure 109/52 L 118/58 L Pulse Oximetry 97 97 Oxygen Delivery Method Room Air Room Air BMI result Body Mass Index 29.1 Labs 12/07/23 22:16 12/23/23 07:35 Labs: Laboratory Results - last 48 hr 12/27/23 12/28/23 12/28/23 20:01 06:06 20:09 POC Glucose 182 H 101 211 H 12/29/23 05:55 POC Glucose 97 Medications Medications Current Medications Acetaminophen (Acetaminophen 325 Mg Tablet) 650 mg PO Q6H PRN PRN Reason: Headache/Pain Mild Scale (1-3) Last Admin: 12/29/23 08:56 Dose: 650 mg Al Hydroxide/Mg Hydroxide (Magnesium Hydrox/Alum Hydrox 30 Ml Oral.Susp) 30 ml PO Q6H PRN PRN Reason: Heartburn/Nausea Allopurinol (Allopurinol 100 Mg Tablet) 100 mg PO DAILY [facility] Last Admin: 12/29/23 08:31 Dose: 100 mg Amlodipine Besylate (Amlodipine Besylate 5 Mg Tablet) 5 mg PO DAILY [facility]; Protocol Last Admin: 12/29/23 08:31 Dose: 5 mg Artificial Tears (Artificial Tears 15 Ml Drops) 2 drop EYE-BOTH Q4H PRN PRN Reason: Dry Eyes Last Admin: 12/26/23 10:48 Dose: 2 drop Atorvastatin Calcium (Atorvastatin Calcium 10 Mg Tablet) 10 mg PO BEDTIME [facility] Last Admin: 12/28/23 20:11 Dose: 10 mg Cyclobenzaprine HCl (Cyclobenzaprine Hcl 5 Mg Tablet) 5 mg PO TID PRN PRN Reason: back spasm Last Admin: 12/24/23 20:29 Dose: 5 mg Diphenoxylate HCl/Atropine (Diphenoxylate/Atrop 2.5/0.025 Tablet) 1 tab PO DAILY PRN PRN Reason: Diarrhea Donepezil HCl (Donepezil Hcl 5 Mg Tablet) 5 mg PO BEDTIME [facility] Last Admin: 12/28/23 20:11 Dose: 5 mg Escitalopram Oxalate (Escitalopram Oxalate 10 Mg Tablet) 10 mg PO DAILY [facility] Last Admin: 12/29/23 08:31 Dose: 10 mg Levothyroxine Sodium (Levothyroxine Sodium 88 Mcg Tablet) 88 mcg PO DAILY@0600 [facility] Last Admin: 12/29/23 06:20 Dose: 88 mcg Loperamide HCl (Loperamide Hcl 2 Mg Capsule) 2 mg PO Q4H PRN PRN Reason: Loose Stool Lorazepam (Lorazepam 0.5 Mg Tablet) 0.5 mg PO DAILY PRN PRN Reason: anxiety Last Admin: 12/22/23 20:13 Dose: 0.5 mg Magnesium Hydroxide (Milk Of Magnesia 30 Ml Oral.Susp) 30 ml PO DAILY PRN PRN Reason: Constipation Memantine (Memantine Hcl 5 Mg Tablet) 5 mg PO DAILY [facility] Last Admin: 12/29/23 08:31 Dose: 5 mg Metformin HCl (Metformin Hcl Er 750 Mg Tab.Er.24h) 750 mg PO BEDTIME [facility] Last Admin: 12/28/23 20:11 Dose: 750 mg Metoprolol Succinate (Metoprolol Succinate Er 25 Mg Tab.Er.24h) 25 mg PO DAILY [facility]; Protocol Last Admin: 12/29/23 08:51 Dose: Not Given Pt Own (Cyclosporine [Restasis] 0.05 % Dropperette) 1 drop EYE-BOTH DAILY [facility] Last Admin: 12/29/23 08:33 Dose: 1 drop Olanzapine (Olanzapine 2.5 Mg Tablet) 2.5 mg PO Q4H PRN PRN Reason: agitation/acute psychosis Simethicone (Simethicone 80 Mg Tab.Chew) 80 mg PO QIDWMHS PRN PRN Reason: bloating Last Admin: 12/29/23 08:56 Dose: 80 mg Sitagliptin Phosphate (Sitagliptin Phosphate 100 Mg Tablet) 100 mg PO DAILY [facility] Last Admin: 12/29/23 08:31 Dose: 100 mg Spironolactone (Spironolactone 25 Mg Tablet) 12.5 mg PO DAILY [facility]; Protocol Last Admin: 12/29/23 08:31 Dose: 12.5 mg Trazodone HCl (Trazodone Hcl 50 Mg Tablet) 50 mg PO BEDTIME MRX1 PRN PRN Reason: Insomnia Vitamin D (Cholecalciferol (Vitamin D3) 25 Mcg Tablet) 25 mcg PO DAILY [facility] Last Admin: 12/29/23 08:31 Dose: 25 mcg Zolpidem Tartrate (Zolpidem Tartrate 5 Mg Tablet) 5 mg PO BEDTIME [facility] Last Admin: 12/28/23 20:11 Dose: 5 mg Allergies Allergies Allergy/AdvReac Type Severity Reaction Status Date / Time codeine Allergy Unknown Verified 12/07/23 20:27 Assessment & Plan Assessment & Plan (1) Dementia with psychotic disturbance: Status: Acute Code(s): F03.92 - Unspecified dementia, unspecified severity, with psychotic disturbance Plan Mrs. Jin is a 83 year-old woman with hx of vascular dementia with delusions of having an affair and some paranoid delusions. Some insight that this may not be the case but pt very much believes and takes action based on delusion despite here reporting that it may not be happening. It is unclear report from [facility] as to suicidal ideation. no indication of imminent harm to self or others, but collateral information is pending from family. May consider antipsychotic. PLAN 1. Restart Namenda. 2. Rexulti was started and increase it to 0.5 p.o. b.i.d. at this point. We are discontinued it on December 18 since the patient has refused to take it and there is no evidence of assaultive behavior. 3. Information of healthcare proxy. 4. Reassessment with results. Reason for continued inpatient stay Substantial Risk for: inability to function, rapid decompensation and med/psych decompensation Time Spent With Patient Time: Total time managing care of this patient today __20__ minutes.
[2023-12-29 20:00] VITALS: BP 99/53; PULSE 65; RESP 16; TEMP 36.2; O2SAT 100
[2023-12-29] MEDS: Atorvastatin Calcium 10 MG TABLET PO (20:16)
[2023-12-29] MEDS: metFORMIN HCl ER 750 MG TAB.ER.24H PO (20:16)
[2023-12-29] MEDS: Zolpidem Tartrate 5 MG TABLET PO (20:16)
[2023-12-29] MEDS: Donepezil HCl 5 MG TABLET PO (20:16)
[2023-12-29 20:35] LABS: Glucose, Whole Blood 215 mg/dL (60-115)
[2023-12-30] MEDS: Levothyroxine Sodium 88 MCG TABLET PO (05:47)
[2023-12-30 06:41] LABS: Glucose, Whole Blood 94 mg/dL (60-115)
[2023-12-30 08:03] LABS: Creatinine Clr Calc Pharmacy 41.1; Estimated Glomerular Filt Rate 49
[2023-12-30 08:10] VITALS: BP 118/64; PULSE 67; RESP 18; TEMP 36.3; O2SAT 100
[2023-12-30] MEDS: Escitalopram Oxalate 10 MG TABLET PO (08:36)
[2023-12-30] MEDS: allopurinoL 100 MG TABLET PO (08:36)
[2023-12-30] MEDS: SITagliptin Phosphate 100 MG TABLET PO (08:36)
[2023-12-30] MEDS: Memantine HCl 5 MG TABLET PO (08:36)
[2023-12-30] MEDS: Cholecalciferol (Vitamin D3) 25 MCG TABLET PO (08:36)
[2023-12-30] MEDS: Metoprolol Succinate ER 25 MG TAB.ER.24H PO (08:36)
[2023-12-30] MEDS: Acetaminophen 325 MG TABLET 650 MG PO (08:36)
[2023-12-30] MEDS: amLODIPine Besylate 5 MG TABLET PO (08:36)
[2023-12-30] MEDS: Spironolactone 25 MG TABLET 12.5 MG PO (08:36)
[2023-12-30] MEDS: Simethicone 80 MG TAB.CHEW PO (08:41)
[2023-12-30] MEDS: PT OWN (Cyclosporine [Restasis] 0.05 % Dropperette) 1 EACH EYE-BOTH (08:42)
--- NOTE | 2023-12-30 09:31 | P.PNPSI_ITS ---
Subjective Subjective Date of Service: 12/30/23 Reason For Visit: psychosis Subjective Notes: Conditional Voluntary Interim History: The nursing staff reported the patient has been pleasant cooperative, fully compliant with treatment. She is now on a lidocaine patch for her back pain. She slept well. On interview the patient denies new symptoms, waiting for placement. Mental Status Exam Mental Status Exam Patient Appearance: Appropriate Patient Orientation: Person and Situation Level of Consciousness: Awake and Appropriate Patient Behavior: Appropriate and Passive Mood Description: Withdrawn Affect Description: Constricted Patient Cognition Impaired: Yes Ability to Follow Directions: Good Speech Pattern: Clear Hallucinations: None Delusions: Ideas of Reference Thought Process: Distracted and Slowed Thinking Thought Content: positive for [place] and positive for Poverty of Content Judgement: Fair Diagnostics Vital Signs (24Hr): Vital Signs - 24 hr 12/29/23 20:00 12/30/23 08:10 Temperature 97.2 F 97.3 F Pulse Rate 65 67 Respiratory Rate 16 18 Blood Pressure 99/53 L 118/64 Pulse Oximetry 100 100 Oxygen Delivery Method Room Air Room Air BMI result Body Mass Index 29.1 Labs 12/07/23 22:16 12/30/23 07:40 Labs: Laboratory Results - last 48 hr 12/28/23 12/29/23 12/29/23 20:09 05:55 20:27 Hold Purple Top Creatinine Estim Creat Clear Calc Estimated GFR POC Glucose 211 H 97 215 H 12/30/23 12/30/23 06:31 07:40 Hold Purple Top SEE NOTE Creatinine 1.06 Estim Creat Clear Calc 41.1 Estimated GFR 49 POC Glucose 94 Medications Medications Current Medications Acetaminophen (Acetaminophen 325 Mg Tablet) 650 mg PO Q6H PRN PRN Reason: Headache/Pain Mild Scale (1-3) Last Admin: 12/30/23 08:36 Dose: 650 mg Al Hydroxide/Mg Hydroxide (Magnesium Hydrox/Alum Hydrox 30 Ml Oral.Susp) 30 ml PO Q6H PRN PRN Reason: Heartburn/Nausea Allopurinol (Allopurinol 100 Mg Tablet) 100 mg PO DAILY [facility] Last Admin: 12/30/23 08:36 Dose: 100 mg Amlodipine Besylate (Amlodipine Besylate 5 Mg Tablet) 5 mg PO DAILY [facility]; Protocol Last Admin: 12/30/23 08:36 Dose: 5 mg Artificial Tears (Artificial Tears 15 Ml Drops) 2 drop EYE-BOTH Q4H PRN PRN Reason: Dry Eyes Last Admin: 12/26/23 10:48 Dose: 2 drop Atorvastatin Calcium (Atorvastatin Calcium 10 Mg Tablet) 10 mg PO BEDTIME [facility] Last Admin: 12/29/23 20:16 Dose: 10 mg Cyclobenzaprine HCl (Cyclobenzaprine Hcl 5 Mg Tablet) 5 mg PO TID PRN PRN Reason: back spasm Last Admin: 12/24/23 20:29 Dose: 5 mg Diphenoxylate HCl/Atropine (Diphenoxylate/Atrop 2.5/0.025 Tablet) 1 tab PO DAILY PRN PRN Reason: Diarrhea Donepezil HCl (Donepezil Hcl 5 Mg Tablet) 5 mg PO BEDTIME [facility] Last Admin: 12/29/23 20:16 Dose: 5 mg Escitalopram Oxalate (Escitalopram Oxalate 10 Mg Tablet) 10 mg PO DAILY [facility] Last Admin: 12/30/23 08:36 Dose: 10 mg Levothyroxine Sodium (Levothyroxine Sodium 88 Mcg Tablet) 88 mcg PO DAILY@0600 [facility] Last Admin: 12/30/23 05:47 Dose: 88 mcg Lidocaine (Lidocaine 4 % Patch Adh..Patch) 2 patch TRANSDERMA DAILY [facility]; Protocol Last Admin: 12/30/23 08:42 Dose: Not Given Loperamide HCl (Loperamide Hcl 2 Mg Capsule) 2 mg PO Q4H PRN PRN Reason: Loose Stool Lorazepam (Lorazepam 0.5 Mg Tablet) 0.5 mg PO DAILY PRN PRN Reason: anxiety Last Admin: 12/22/23 20:13 Dose: 0.5 mg Magnesium Hydroxide (Milk Of Magnesia 30 Ml Oral.Susp) 30 ml PO DAILY PRN PRN Reason: Constipation Memantine (Memantine Hcl 5 Mg Tablet) 5 mg PO DAILY [facility] Last Admin: 12/30/23 08:36 Dose: 5 mg Metformin HCl (Metformin Hcl Er 750 Mg Tab.Er.24h) 750 mg PO BEDTIME [facility] Last Admin: 12/29/23 20:16 Dose: 750 mg Metoprolol Succinate (Metoprolol Succinate Er 25 Mg Tab.Er.24h) 25 mg PO DAILY [facility]; Protocol Last Admin: 12/30/23 08:36 Dose: 25 mg Pt Own (Cyclosporine [Restasis] 0.05 % Dropperette) 1 drop EYE-BOTH DAILY [facility] Last Admin: 09/07/24 08:42 Dose: 1 drop Olanzapine (Olanzapine 2.5 Mg Tablet) 2.5 mg PO Q4H PRN PRN Reason: agitation/acute psychosis Simethicone (Simethicone 80 Mg Tab.Chew) 80 mg PO QIDWMHS PRN PRN Reason: bloating Last Admin: 12/30/23 08:41 Dose: 80 mg Sitagliptin Phosphate (Sitagliptin Phosphate 100 Mg Tablet) 100 mg PO DAILY [facility] Last Admin: 12/30/23 08:36 Dose: 100 mg Spironolactone (Spironolactone 25 Mg Tablet) 12.5 mg PO DAILY [facility]; Protocol Last Admin: 12/30/23 08:36 Dose: 12.5 mg Trazodone HCl (Trazodone Hcl 50 Mg Tablet) 50 mg PO BEDTIME MRX1 PRN PRN Reason: Insomnia Vitamin D (Cholecalciferol (Vitamin D3) 25 Mcg Tablet) 25 mcg PO DAILY [facility] Last Admin: 12/30/23 08:36 Dose: 25 mcg Zolpidem Tartrate (Zolpidem Tartrate 5 Mg Tablet) 5 mg PO BEDTIME [facility] Last Admin: 12/29/23 20:16 Dose: 5 mg Allergies Allergies Allergy/AdvReac Type Severity Reaction Status Date / Time codeine Allergy Unknown Verified 12/07/23 20:27 Assessment & Plan Assessment & Plan (1) Dementia with psychotic disturbance: Status: Acute Code(s): F03.92 - Unspecified dementia, unspecified severity, with psychotic disturbance Plan Mrs. Jin is a 83 year-old woman with hx of vascular dementia with delusions of having an affair and some paranoid delusions. Some insight that this may not be the case but pt very much believes and takes action based on delusion despite here reporting that it may not be happening. It is unclear report from [facility] as to suicidal ideation. no indication of imminent harm to self or others, but collateral information is pending from family. May consider antipsychotic. PLAN 1. Restart Namenda. 2. Rexulti was started and increase it to 0.5 p.o. b.i.d. at this point. We are discontinued it on December 18 since the patient has refused to take it and there is no evidence of assaultive behavior. 3. Information of healthcare proxy. 4. Reassessment with results. Reason for continued inpatient stay Substantial Risk for: inability to function, rapid decompensation and med/psych decompensation Time Spent With Patient Time: Total time managing care of this patient today _20___ minutes.
[2023-12-30] MEDS: Lidocaine 4 % Patch ADH..PATCH 2 PATCH TRANSDERMA (10:38)
[2023-12-30 19:52] VITALS: BP 131/60; PULSE 56; RESP 16; TEMP 36; O2SAT 98
[2023-12-30] MEDS: metFORMIN HCl ER 750 MG TAB.ER.24H PO (20:45)
[2023-12-30] MEDS: Zolpidem Tartrate 5 MG TABLET PO (20:45)
[2023-12-30] MEDS: Donepezil HCl 5 MG TABLET PO (20:45)
[2023-12-30] MEDS: Atorvastatin Calcium 10 MG TABLET PO (20:45)
[2023-12-30 21:01] LABS: Glucose, Whole Blood 149 mg/dL (60-115)
[2023-12-31] MEDS: Levothyroxine Sodium 88 MCG TABLET PO (05:37)
[2023-12-31 06:07] LABS: Glucose, Whole Blood 100 mg/dL (60-115)
[2023-12-31 08:41] VITALS: BP 113/66; PULSE 67; RESP 16; TEMP 36.4; O2SAT 96
[2023-12-31] MEDS: Memantine HCl 5 MG TABLET PO (08:46)
[2023-12-31] MEDS: Cholecalciferol (Vitamin D3) 25 MCG TABLET PO (08:46)
[2023-12-31] MEDS: allopurinoL 100 MG TABLET PO (08:46)
[2023-12-31] MEDS: Escitalopram Oxalate 10 MG TABLET PO (08:47)
[2023-12-31] MEDS: Simethicone 80 MG TAB.CHEW PO (08:47)
[2023-12-31] MEDS: SITagliptin Phosphate 100 MG TABLET PO (08:47)
[2023-12-31] MEDS: Acetaminophen 325 MG TABLET 650 MG PO (08:47)
[2023-12-31 08:48] VITALS: BP 113/66; PULSE 67
[2023-12-31] MEDS: amLODIPine Besylate 5 MG TABLET PO (08:48)
[2023-12-31] MEDS: Metoprolol Succinate ER 25 MG TAB.ER.24H PO (08:48)
[2023-12-31 08:49] VITALS: BP 113/66
[2023-12-31] MEDS: Spironolactone 25 MG TABLET 12.5 MG PO (08:49)
[2023-12-31] MEDS: PT OWN (Cyclosporine [Restasis] 0.05 % Dropperette) 1 EACH EYE-BOTH (08:52)
--- NOTE | 2023-12-31 10:39 | P.PNPSI_ITS ---
Subjective Subjective Date of Service: 12/31/23 Reason For Visit: psychosis Subjective Notes: Conditional Voluntary Interim History: The nursing staff reported no issues pleasant cooperative, he is fasting blood sugar was 49 at night and 100 in the morning slept 8 hours. On interview the patient denies new symptoms, we are arranging placement. Mental Status Exam Mental Status Exam Patient Appearance: Well Grooomed and Appropriate Patient Orientation: Person and Situation Level of Consciousness: Awake and Appropriate Patient Behavior: Guarded and Passive Mood Description: Withdrawn Affect Description: Constricted Patient Cognition Impaired: Yes Ability to Follow Directions: Good Speech Pattern: Clear Hallucinations: None Delusions: Ideas of Reference Thought Process: Distracted and Slowed Thinking Thought Content: positive for [place] and positive for Poverty of Content Judgement: Fair Diagnostics Vital Signs (24Hr): Vital Signs - 24 hr 12/30/23 19:52 12/31/23 08:41 12/31/23 08:48 Temperature 96.8 F 97.5 F Pulse Rate 56 67 67 Respiratory Rate 16 16 Blood Pressure 131/60 113/66 113/66 Pulse Oximetry 98 96 Oxygen Delivery Method Room Air 12/31/23 08:48 12/31/23 08:49 Temperature Pulse Rate Respiratory Rate Blood Pressure 113/66 113/66 Pulse Oximetry Oxygen Delivery Method BMI result Body Mass Index 29.1 Labs 12/07/23 22:16 12/30/23 07:40 Labs: Laboratory Results - last 48 hr 12/29/23 12/30/23 12/30/23 20:27 06:31 07:40 Hold Purple Top SEE NOTE Creatinine 1.06 Estim Creat Clear Calc 41.1 Estimated GFR 49 POC Glucose 215 H 94 12/30/23 12/31/23 20:49 06:02 Hold Purple Top Creatinine Estim Creat Clear Calc Estimated GFR POC Glucose 149 H 100 Medications Medications Current Medications Acetaminophen (Acetaminophen 325 Mg Tablet) 650 mg PO Q6H PRN PRN Reason: Headache/Pain Mild Scale (1-3) Last Admin: 12/31/23 08:47 Dose: 650 mg Al Hydroxide/Mg Hydroxide (Magnesium Hydrox/Alum Hydrox 30 Ml Oral.Susp) 30 ml PO Q6H PRN PRN Reason: Heartburn/Nausea Allopurinol (Allopurinol 100 Mg Tablet) 100 mg PO DAILY [facility] Last Admin: 12/31/23 08:46 Dose: 100 mg Amlodipine Besylate (Amlodipine Besylate 5 Mg Tablet) 5 mg PO DAILY [facility]; Protocol Last Admin: 12/31/23 08:48 Dose: 5 mg Artificial Tears (Artificial Tears 15 Ml Drops) 2 drop EYE-BOTH Q4H PRN PRN Reason: Dry Eyes Last Admin: 12/26/23 10:48 Dose: 2 drop Atorvastatin Calcium (Atorvastatin Calcium 10 Mg Tablet) 10 mg PO BEDTIME [facility] Last Admin: 12/30/23 20:45 Dose: 10 mg Cyclobenzaprine HCl (Cyclobenzaprine Hcl 5 Mg Tablet) 5 mg PO TID PRN PRN Reason: back spasm Last Admin: 12/24/23 20:29 Dose: 5 mg Diphenoxylate HCl/Atropine (Diphenoxylate/Atrop 2.5/0.025 Tablet) 1 tab PO DAILY PRN PRN Reason: Diarrhea Donepezil HCl (Donepezil Hcl 5 Mg Tablet) 5 mg PO BEDTIME [facility] Last Admin: 12/30/23 20:45 Dose: 5 mg Escitalopram Oxalate (Escitalopram Oxalate 10 Mg Tablet) 10 mg PO DAILY [facility] Last Admin: 12/31/23 08:47 Dose: 10 mg Levothyroxine Sodium (Levothyroxine Sodium 88 Mcg Tablet) 88 mcg PO DAILY@0600 [facility] Last Admin: 12/31/23 05:37 Dose: 88 mcg Lidocaine (Lidocaine 4 % Patch Adh..Patch) 2 patch TRANSDERMA DAILY [facility]; Protocol Last Admin: 12/31/23 08:53 Dose: Not Given Loperamide HCl (Loperamide Hcl 2 Mg Capsule) 2 mg PO Q4H PRN PRN Reason: Loose Stool Lorazepam (Lorazepam 0.5 Mg Tablet) 0.5 mg PO DAILY PRN PRN Reason: anxiety Last Admin: 12/22/23 20:13 Dose: 0.5 mg Magnesium Hydroxide (Milk Of Magnesia 30 Ml Oral.Susp) 30 ml PO DAILY PRN PRN Reason: Constipation Memantine (Memantine Hcl 5 Mg Tablet) 5 mg PO DAILY [facility] Last Admin: 12/31/23 08:46 Dose: 5 mg Metformin HCl (Metformin Hcl Er 750 Mg Tab.Er.24h) 750 mg PO BEDTIME [facility] Last Admin: 12/30/23 20:45 Dose: 750 mg Metoprolol Succinate (Metoprolol Succinate Er 25 Mg Tab.Er.24h) 25 mg PO DAILY [facility]; Protocol Last Admin: 12/31/23 08:48 Dose: 25 mg Pt Own (Cyclosporine [Restasis] 0.05 % Dropperette) 1 drop EYE-BOTH DAILY [facility] Last Admin: 12/31/23 08:52 Dose: 1 drop Olanzapine (Olanzapine 2.5 Mg Tablet) 2.5 mg PO Q4H PRN PRN Reason: agitation/acute psychosis Simethicone (Simethicone 80 Mg Tab.Chew) 80 mg PO QIDWMHS PRN PRN Reason: bloating Last Admin: 12/31/23 08:47 Dose: 80 mg Sitagliptin Phosphate (Sitagliptin Phosphate 100 Mg Tablet) 100 mg PO DAILY [facility] Last Admin: 12/31/23 08:47 Dose: 100 mg Spironolactone (Spironolactone 25 Mg Tablet) 12.5 mg PO DAILY [facility]; Protocol Last Admin: 12/31/23 08:49 Dose: 12.5 mg Trazodone HCl (Trazodone Hcl 50 Mg Tablet) 50 mg PO BEDTIME MRX1 PRN PRN Reason: Insomnia Vitamin D (Cholecalciferol (Vitamin D3) 25 Mcg Tablet) 25 mcg PO DAILY [facility] Last Admin: 12/31/23 08:46 Dose: 25 mcg Zolpidem Tartrate (Zolpidem Tartrate 5 Mg Tablet) 5 mg PO BEDTIME [facility] Last Admin: 12/30/23 20:45 Dose: 5 mg Allergies Allergies Allergy/AdvReac Type Severity Reaction Status Date / Time codeine Allergy Unknown Verified 12/07/23 20:27 Assessment & Plan Assessment & Plan (1) Dementia with psychotic disturbance: Status: Acute Code(s): F03.92 - Unspecified dementia, unspecified severity, with psychotic disturbance Plan Mrs. Jin is a 83 year-old woman with hx of vascular dementia with delusions of having an affair and some paranoid delusions. Some insight that this may not be the case but pt very much believes and takes action based on delusion despite here reporting that it may not be happening. It is unclear report from [facility] as to suicidal ideation. no indication of imminent harm to self or others, but collateral information is pending from family. May consider antipsychotic. PLAN 1. Restart Namenda. 2. Rexulti was started and increase it to 0.5 p.o. b.i.d. at this point. We are discontinued it on December 18 since the patient has refused to take it and there is no evidence of assaultive behavior. 3. Information of healthcare proxy. 4. Reassessment with results. Reason for continued inpatient stay Substantial Risk for: inability to function, rapid decompensation and med/psych decompensation Time Spent With Patient Time: Total time managing care of this patient today __20__ minutes.
[2023-12-31] MEDS: Atorvastatin Calcium 10 MG TABLET PO (19:54)
[2023-12-31] MEDS: metFORMIN HCl ER 750 MG TAB.ER.24H PO (19:54)
[2023-12-31] MEDS: Zolpidem Tartrate 5 MG TABLET PO (19:54)
[2023-12-31] MEDS: Donepezil HCl 5 MG TABLET PO (19:55)
[2023-12-31 20:00] VITALS: BP 102/64; PULSE 63; RESP 17; TEMP 36; O2SAT 97
[2023-12-31 20:04] LABS: Glucose, Whole Blood 210 mg/dL (60-115)
[2024-01-01] MEDS: Levothyroxine Sodium 88 MCG TABLET PO (05:17)
[2024-01-01 05:50] LABS: Glucose, Whole Blood 85 mg/dL (60-115)
[2024-01-01 09:13] VITALS: BP 123/60; PULSE 52; RESP 18; TEMP 36; O2SAT 100
[2024-01-01] MEDS: Escitalopram Oxalate 10 MG TABLET PO (09:20)
[2024-01-01] MEDS: Spironolactone 25 MG TABLET 12.5 MG PO (09:21)
[2024-01-01] MEDS: LORazepam 0.5 MG TABLET PO (09:21)
[2024-01-01] MEDS: Cholecalciferol (Vitamin D3) 25 MCG TABLET PO (09:22)
[2024-01-01] MEDS: SITagliptin Phosphate 100 MG TABLET PO (09:22)
[2024-01-01] MEDS: allopurinoL 100 MG TABLET PO (09:22)
[2024-01-01] MEDS: amLODIPine Besylate 5 MG TABLET PO (09:23)
[2024-01-01] MEDS: Memantine HCl 5 MG TABLET PO (09:23)
[2024-01-01] MEDS: PT OWN (Cyclosporine [Restasis] 0.05 % Dropperette) 1 EACH EYE-BOTH (09:27)
--- NOTE | 2024-01-01 13:43 | PC.NURSE ---
Patient complained this morning about being up all night, anxious and exhausted. She requested Ativan. Ativan 0.5 mg given PO [id number] with good effect. Patient stated that her anxiety was decreased and she fell asleep.
--- NOTE | 2024-01-01 13:45 | PC.NURSE ---
Addendum entered by Cindy Neves RN 01/01/24 14:59: Dr Oliver contacted via [employer] text and is aware of the low pulse and Metoprolol being held. Original Note: Metoprolol was held secondary to P/HR of 52 this morning. Will ( Dr. Cornell's student)notified and he was to update him.
--- NOTE | 2024-01-01 14:29 | HO.PSYCHPN ---
Subjective Subjective Date of Service: 01/01/24 Reason For Visit: psychosis Subjective Notes: Conditional Voluntary Interim History: The nursing staff reported the patient slept only 1 hours since her roommate was making too much noise. The executive secretary social welfare still working for placement. On interview the patient denies new symptoms waiting for placement Mental Status Exam Mental Status Exam Patient Appearance: Well Grooomed and Appropriate Patient Orientation: Person and Situation Level of Consciousness: Awake and Appropriate Patient Behavior: Appropriate Mood Description: Withdrawn Affect Description: Constricted Patient Cognition Impaired: Yes Ability to Follow Directions: Good Speech Pattern: Clear Hallucinations: None Delusions: Not Present Thought Process: Distracted Thought Content: positive for [place] and positive for Poverty of Content Judgement: Fair Diagnostics Vital Signs (24Hr): Vital Signs - 24 hr 12/31/23 20:00 01/01/24 09:13 Temperature 96.8 F 96.8 F Pulse Rate 63 52 Respiratory Rate 17 18 Blood Pressure 102/64 123/60 Pulse Oximetry 97 100 Oxygen Delivery Method Room Air Room Air BMI result Body Mass Index 29.1 Labs 12/07/23 22:16 12/30/23 07:40 Labs: Laboratory Results - last 48 hr 12/30/23 12/31/23 12/31/23 20:49 06:02 19:57 POC Glucose 149 H 100 210 H 01/01/24 05:45 POC Glucose 85 Medications Medications Current Medications Acetaminophen (Acetaminophen 325 Mg Tablet) 650 mg PO Q6H PRN PRN Reason: Headache/Pain Mild Scale (1-3) Last Admin: 12/31/23 08:47 Dose: 650 mg Al Hydroxide/Mg Hydroxide (Magnesium Hydrox/Alum Hydrox 30 Ml Oral.Susp) 30 ml PO Q6H PRN PRN Reason: Heartburn/Nausea Allopurinol (Allopurinol 100 Mg Tablet) 100 mg PO DAILY [facility] Last Admin: 01/01/24 09:22 Dose: 100 mg Amlodipine Besylate (Amlodipine Besylate 5 Mg Tablet) 5 mg PO DAILY [facility]; Protocol Last Admin: 01/01/24 09:23 Dose: 5 mg Artificial Tears (Artificial Tears 15 Ml Drops) 2 drop EYE-BOTH Q4H PRN PRN Reason: Dry Eyes Last Admin: 12/26/23 10:48 Dose: 2 drop Atorvastatin Calcium (Atorvastatin Calcium 10 Mg Tablet) 10 mg PO BEDTIME [facility] Last Admin: 12/31/23 19:54 Dose: 10 mg Cyclobenzaprine HCl (Cyclobenzaprine Hcl 5 Mg Tablet) 5 mg PO TID PRN PRN Reason: back spasm Last Admin: 12/24/23 20:29 Dose: 5 mg Diphenoxylate HCl/Atropine (Diphenoxylate/Atrop 2.5/0.025 Tablet) 1 tab PO DAILY PRN PRN Reason: Diarrhea Donepezil HCl (Donepezil Hcl 5 Mg Tablet) 5 mg PO BEDTIME [facility] Last Admin: 12/31/23 19:55 Dose: 5 mg Escitalopram Oxalate (Escitalopram Oxalate 10 Mg Tablet) 10 mg PO DAILY [facility] Last Admin: 01/01/24 09:20 Dose: 10 mg Levothyroxine Sodium (Levothyroxine Sodium 88 Mcg Tablet) 88 mcg PO DAILY@0600 [facility] Last Admin: 01/01/24 05:17 Dose: 88 mcg Lidocaine (Lidocaine 4 % Patch Adh..Patch) 2 patch TRANSDERMA DAILY [facility]; Protocol Last Admin: 01/01/24 09:25 Dose: Not Given Loperamide HCl (Loperamide Hcl 2 Mg Capsule) 2 mg PO Q4H PRN PRN Reason: Loose Stool Lorazepam (Lorazepam 0.5 Mg Tablet) 0.5 mg PO DAILY PRN PRN Reason: anxiety Last Admin: 01/01/24 09:21 Dose: 0.5 mg Magnesium Hydroxide (Milk Of Magnesia 30 Ml Oral.Susp) 30 ml PO DAILY PRN PRN Reason: Constipation Memantine (Memantine Hcl 5 Mg Tablet) 5 mg PO DAILY [facility] Last Admin: 01/01/24 09:23 Dose: 5 mg Metformin HCl (Metformin Hcl Er 750 Mg Tab.Er.24h) 750 mg PO BEDTIME [facility] Last Admin: 12/31/23 19:54 Dose: 750 mg Metoprolol Succinate (Metoprolol Succinate Er 25 Mg Tab.Er.24h) 25 mg PO DAILY [facility]; Protocol Last Admin: 01/01/24 09:20 Dose: Not Given Pt Own (Cyclosporine [Restasis] 0.05 % Dropperette) 1 drop EYE-BOTH DAILY [facility] Last Admin: 01/01/24 09:27 Dose: 1 drop Olanzapine (Olanzapine 2.5 Mg Tablet) 2.5 mg PO Q4H PRN PRN Reason: agitation/acute psychosis Simethicone (Simethicone 80 Mg Tab.Chew) 80 mg PO QIDWMHS PRN PRN Reason: bloating Last Admin: 12/31/23 08:47 Dose: 80 mg Sitagliptin Phosphate (Sitagliptin Phosphate 100 Mg Tablet) 100 mg PO DAILY [facility] Last Admin: 01/01/24 09:22 Dose: 100 mg Spironolactone (Spironolactone 25 Mg Tablet) 12.5 mg PO DAILY [facility]; Protocol Last Admin: 01/01/24 09:21 Dose: 12.5 mg Trazodone HCl (Trazodone Hcl 50 Mg Tablet) 50 mg PO BEDTIME MRX[facility] PRN PRN Reason: Insomnia Vitamin D (Cholecalciferol (Vitamin D3) 25 Mcg Tablet) 25 mcg PO DAILY [facility] Last Admin: 01/01/24 09:22 Dose: 25 mcg Zolpidem Tartrate (Zolpidem Tartrate 5 Mg Tablet) 5 mg PO BEDTIME [facility] Last Admin: 12/31/23 19:54 Dose: 5 mg Allergies Allergies Allergy/AdvReac Type Severity Reaction Status Date / Time codeine Allergy Unknown Verified 12/07/23 20:27 Assessment & Plan Assessment & Plan (1) Dementia with psychotic disturbance: Status: Acute Code(s): F03.92 - Unspecified dementia, unspecified severity, with psychotic disturbance Plan Mrs. Jin is a 83 year-old woman with hx of vascular dementia with delusions of having an affair and some paranoid delusions. Some insight that this may not be the case but pt very much believes and takes action based on delusion despite here reporting that it may not be happening. It is unclear report from [facility] as to suicidal ideation. no indication of imminent harm to self or others, but collateral information is pending from family. May consider antipsychotic. PLAN 1. Restart Namenda. 2. Rexulti was started and increase it to 0.5 p.o. b.i.d. at this point. We are discontinued it on December 18 since the patient has refused to take it and there is no evidence of assaultive behavior. 3. Information of healthcare proxy. 4. Reassessment with results. Reason for continued inpatient stay Substantial Risk for: inability to function, rapid decompensation and med/psych decompensation Time Spent With Patient Time: Total time managing care of this patient today __20__ minutes.
[2024-01-01 20:00] VITALS: BP 113/52; PULSE 64; RESP 16; TEMP 36.2; O2SAT 97
[2024-01-01] MEDS: Donepezil HCl 5 MG TABLET PO (20:15)
[2024-01-01] MEDS: metFORMIN HCl ER 750 MG TAB.ER.24H PO (20:15)
[2024-01-01] MEDS: Atorvastatin Calcium 10 MG TABLET PO (20:15)
[2024-01-01] MEDS: Zolpidem Tartrate 5 MG TABLET PO (20:15)
[2024-01-01] MEDS: Simethicone 80 MG TAB.CHEW PO (20:20)
[2024-01-01] MEDS: Acetaminophen 325 MG TABLET 650 MG PO (20:20)
[2024-01-01 20:28] LABS: Glucose, Whole Blood 157 mg/dL (60-115)
[2024-01-02] MEDS: Levothyroxine Sodium 88 MCG TABLET PO (06:07)
[2024-01-02 07:50] LABS: Glucose, Whole Blood 91 mg/dL (60-115)
[2024-01-02 08:05] VITALS: BP 123/57; PULSE 54; RESP 18; TEMP 36.8; O2SAT 98
[2024-01-02] MEDS: Escitalopram Oxalate 10 MG TABLET PO (08:36)
[2024-01-02] MEDS: amLODIPine Besylate 5 MG TABLET PO (08:36)
[2024-01-02] MEDS: Simethicone 80 MG TAB.CHEW PO (08:36)
[2024-01-02] MEDS: Acetaminophen 325 MG TABLET 650 MG PO (08:36)
[2024-01-02] MEDS: Memantine HCl 5 MG TABLET PO (08:37)
[2024-01-02] MEDS: Spironolactone 25 MG TABLET 12.5 MG PO (08:39)
[2024-01-02] MEDS: SITagliptin Phosphate 100 MG TABLET PO (08:39)
[2024-01-02] MEDS: allopurinoL 100 MG TABLET PO (08:40)
[2024-01-02] MEDS: Cholecalciferol (Vitamin D3) 25 MCG TABLET PO (08:40)
[2024-01-02] MEDS: PT OWN (Cyclosporine [Restasis] 0.05 % Dropperette) 1 EACH EYE-BOTH (08:45)
--- NOTE | 2024-01-02 12:27 | HO.PSYCHPN ---
Subjective Subjective Date of Service: 01/02/24 Reason For Visit: psychosis Interim History: The nursing staff reported that she had been compliant with treatment, she slept poorly since her roomate was up all night, disruptive. On [place], she denied new symptoms. Waiting for placement. Mental Status Exam Mental Status Exam Patient Appearance: Well Grooomed and Appropriate Patient Orientation: Person and Situation Level of Consciousness: Awake and Appropriate Patient Behavior: Guarded and Passive Mood Description: Withdrawn Affect Description: Constricted Patient Cognition Impaired: Yes Ability to Follow Directions: Good Speech Pattern: Clear Hallucinations: None Delusions: Not Present Thought Process: Distracted and Slowed Thinking Thought Content: positive for [place] and positive for Poverty of Content Judgement: Poor Diagnostics Vital Signs (24Hr): Vital Signs - 24 hr 01/01/24 20:00 01/02/24 08:05 Temperature 97.2 F 98.2 F Pulse Rate 64 54 Respiratory Rate 16 18 Blood Pressure 113/52 L 123/57 L Pulse Oximetry 97 98 Oxygen Delivery Method Room Air Room Air BMI result Body Mass Index 29.1 Labs 12/07/23 22:16 12/30/23 07:40 Labs: Laboratory Results - last 48 hr 12/31/23 01/01/24 01/01/24 19:57 05:45 20:13 POC Glucose 210 H 85 157 H 01/02/24 06:10 POC Glucose 91 Medications Medications Current Medications Acetaminophen (Acetaminophen 325 Mg Tablet) 650 mg PO Q6H PRN PRN Reason: Headache/Pain Mild Scale (1-3) Last Admin: 01/02/24 08:36 Dose: 650 mg Al Hydroxide/Mg Hydroxide (Magnesium Hydrox/Alum Hydrox 30 Ml Oral.Susp) 30 ml PO Q6H PRN PRN Reason: Heartburn/Nausea Allopurinol (Allopurinol 100 Mg Tablet) 100 mg PO DAILY [facility] Last Admin: 01/02/24 08:40 Dose: 100 mg Amlodipine Besylate (Amlodipine Besylate 5 Mg Tablet) 5 mg PO DAILY [facility]; Protocol Last Admin: 01/02/24 08:36 Dose: 5 mg Artificial Tears (Artificial Tears 15 Ml Drops) 2 drop EYE-BOTH Q4H PRN PRN Reason: Dry Eyes Last Admin: 12/26/23 10:48 Dose: 2 drop Atorvastatin Calcium (Atorvastatin Calcium 10 Mg Tablet) 10 mg PO BEDTIME [facility] Last Admin: 01/01/24 20:15 Dose: 10 mg Cyclobenzaprine HCl (Cyclobenzaprine Hcl 5 Mg Tablet) 5 mg PO TID PRN PRN Reason: back spasm Last Admin: 12/24/23 20:29 Dose: 5 mg Diphenoxylate HCl/Atropine (Diphenoxylate/Atrop 2.5/0.025 Tablet) 1 tab PO DAILY PRN PRN Reason: Diarrhea Donepezil HCl (Donepezil Hcl 5 Mg Tablet) 5 mg PO BEDTIME [facility] Last Admin: 01/01/24 20:15 Dose: 5 mg Escitalopram Oxalate (Escitalopram Oxalate 10 Mg Tablet) 10 mg PO DAILY [facility] Last Admin: 01/02/24 08:36 Dose: 10 mg Levothyroxine Sodium (Levothyroxine Sodium 88 Mcg Tablet) 88 mcg PO DAILY@0600 [facility] Last Admin: 01/02/24 06:07 Dose: 88 mcg Lidocaine (Lidocaine 4 % Patch Adh..Patch) 2 patch TRANSDERMA DAILY [facility]; Protocol Last Admin: 01/02/24 08:41 Dose: Not Given Loperamide HCl (Loperamide Hcl 2 Mg Capsule) 2 mg PO Q4H PRN PRN Reason: Loose Stool Lorazepam (Lorazepam 0.5 Mg Tablet) 0.5 mg PO DAILY PRN PRN Reason: anxiety Last Admin: 01/01/24 09:21 Dose: 0.5 mg Magnesium Hydroxide (Milk Of Magnesia 30 Ml Oral.Susp) 30 ml PO DAILY PRN PRN Reason: Constipation Memantine (Memantine Hcl 5 Mg Tablet) 5 mg PO DAILY [facility] Last Admin: 01/02/24 08:37 Dose: 5 mg Metformin HCl (Metformin Hcl Er 750 Mg Tab.Er.24h) 750 mg PO BEDTIME [facility] Last Admin: 01/01/24 20:15 Dose: 750 mg Metoprolol Succinate (Metoprolol Succinate Er 25 Mg Tab.Er.24h) 25 mg PO DAILY [facility]; Protocol Last Admin: 01/02/24 08:38 Dose: Not Given Pt Own (Cyclosporine [Restasis] 0.05 % Dropperette) 1 drop EYE-BOTH DAILY [facility] Last Admin: 01/02/24 08:45 Dose: 1 drop Olanzapine (Olanzapine 2.5 Mg Tablet) 2.5 mg PO Q4H PRN PRN Reason: agitation/acute psychosis Simethicone (Simethicone 80 Mg Tab.Chew) 80 mg PO QIDWMHS PRN PRN Reason: bloating Last Admin: 01/02/24 08:36 Dose: 80 mg Sitagliptin Phosphate (Sitagliptin Phosphate 100 Mg Tablet) 100 mg PO DAILY [facility] Last Admin: 01/02/24 08:39 Dose: 100 mg Spironolactone (Spironolactone 25 Mg Tablet) 12.5 mg PO DAILY [facility]; Protocol Last Admin: 01/02/24 08:39 Dose: 12.5 mg Trazodone HCl (Trazodone Hcl 50 Mg Tablet) 50 mg PO BEDTIME MRX1 PRN PRN Reason: Insomnia Vitamin D (Cholecalciferol (Vitamin D3) 25 Mcg Tablet) 25 mcg PO DAILY [facility] Last Admin: 01/02/24 08:40 Dose: 25 mcg Zolpidem Tartrate (Zolpidem Tartrate 5 Mg Tablet) 5 mg PO BEDTIME [facility] Last Admin: 01/01/24 20:15 Dose: 5 mg Allergies Allergies Allergy/AdvReac Type Severity Reaction Status Date / Time codeine Allergy Unknown Verified 12/07/23 20:27 Assessment & Plan Assessment & Plan (1) Dementia with psychotic disturbance: Status: Acute Code(s): F03.92 - Unspecified dementia, unspecified severity, with psychotic disturbance Plan Mrs. Jin is a 83 year-old woman with hx of vascular dementia with delusions of having an affair and some paranoid delusions. Some insight that this may not be the case but pt very much believes and takes action based on delusion despite here reporting that it may not be happening. It is unclear report from [facility] as to suicidal ideation. no indication of imminent harm to self or others, but collateral information is pending from family. May consider antipsychotic. PLAN 1. Restart Namenda. 2. Rexulti was started and increase it to 0.5 p.o. b.i.d. at this point. We are discontinued it on December 18 since the patient has refused to take it and there is no evidence of assaultive behavior. 3. Information of healthcare proxy. 4. Reassessment with results. Reason for continued inpatient stay Substantial Risk for: inability to function, rapid decompensation and med/psych decompensation Time Spent With Patient Time: Total time managing care of this patient today __20__ minutes.
[2024-01-02 20:00] VITALS: BP 137/63; PULSE 82; RESP 18; TEMP 36.7; O2SAT 98
[2024-01-02 20:17] LABS: Glucose, Whole Blood 224 mg/dL (60-115)
[2024-01-02] MEDS: metFORMIN HCl ER 750 MG TAB.ER.24H PO (21:10)
[2024-01-02] MEDS: Atorvastatin Calcium 10 MG TABLET PO (21:10)
[2024-01-02] MEDS: Zolpidem Tartrate 5 MG TABLET PO (21:10)
[2024-01-02] MEDS: Donepezil HCl 5 MG TABLET PO (21:10)
[2024-01-03] MEDS: Levothyroxine Sodium 88 MCG TABLET PO (06:01)
[2024-01-03 06:18] LABS: Glucose, Whole Blood 106 mg/dL (60-115)
[2024-01-03 08:00] VITALS: BP 134/66; PULSE 66; RESP 18; TEMP 36.4; O2SAT 100
[2024-01-03] MEDS: amLODIPine Besylate 5 MG TABLET PO (08:57)
[2024-01-03] MEDS: Spironolactone 25 MG TABLET 12.5 MG PO (08:57)
[2024-01-03] MEDS: Memantine HCl 5 MG TABLET PO (08:58)
[2024-01-03] MEDS: Cholecalciferol (Vitamin D3) 25 MCG TABLET PO (08:58)
[2024-01-03] MEDS: Metoprolol Succinate ER 25 MG TAB.ER.24H PO (08:58)
[2024-01-03] MEDS: Escitalopram Oxalate 10 MG TABLET PO (08:58)
[2024-01-03] MEDS: PT OWN (Cyclosporine [Restasis] 0.05 % Dropperette) 1 EACH EYE-BOTH (08:59)
[2024-01-03] MEDS: allopurinoL 100 MG TABLET PO (08:59)
[2024-01-03] MEDS: SITagliptin Phosphate 100 MG TABLET PO (08:59)
[2024-01-03] MEDS: LORazepam 0.5 MG TABLET PO (09:05)
[2024-01-03] MEDS: Simethicone 80 MG TAB.CHEW PO (10:10)
--- NOTE | 2024-01-03 12:17 | HO.PSYCHPN ---
Subjective Subjective Date of Service: 01/03/24 Reason For Visit: psychosis Subjective Notes: Conditional Voluntary Interim History: The nursing staff reported the patient slept poorly last night, she had been pleasant and cooperative. We change her eyedrops to b.i.d.. On interview the patient denies new symptoms, waiting for placement. Mental Status Exam Mental Status Exam Patient Appearance: Well Grooomed and Appropriate Patient Orientation: Person and Situation Level of Consciousness: Awake and Appropriate Patient Behavior: Guarded and Passive Mood Description: Calm Affect Description: Constricted Patient Cognition Impaired: Yes Ability to Follow Directions: Good Speech Pattern: Clear Hallucinations: None Delusions: Not Present Thought Process: Distracted and Slowed Thinking Thought Content: positive for [place] and positive for Poverty of Content Judgement: Fair Diagnostics Vital Signs (24Hr): Vital Signs - 24 hr 01/02/24 20:00 01/03/24 08:00 Temperature 98.1 F 97.6 F Pulse Rate 82 66 Respiratory Rate 18 18 Blood Pressure 137/63 134/66 Pulse Oximetry 98 100 Oxygen Delivery Method Room Air Room Air BMI result Body Mass Index 29.1 Labs 12/07/23 22:16 12/30/23 07:40 Labs: Laboratory Results - last 48 hr 01/01/24 01/02/24 01/02/24 20:13 06:10 20:08 POC Glucose 157 H 91 224 H 01/03/24 06:04 POC Glucose 106 Medications Medications Current Medications Acetaminophen (Acetaminophen 325 Mg Tablet) 650 mg PO Q6H PRN PRN Reason: Headache/Pain Mild Scale (1-3) Last Admin: 01/02/24 08:36 Dose: 650 mg Al Hydroxide/Mg Hydroxide (Magnesium Hydrox/Alum Hydrox 30 Ml Oral.Susp) 30 ml PO Q6H PRN PRN Reason: Heartburn/Nausea Allopurinol (Allopurinol 100 Mg Tablet) 100 mg PO DAILY [facility] Last Admin: 01/03/24 08:59 Dose: 100 mg Amlodipine Besylate (Amlodipine Besylate 5 Mg Tablet) 5 mg PO DAILY [facility]; Protocol Last Admin: 01/03/24 08:57 Dose: 5 mg Artificial Tears (Artificial Tears 15 Ml Drops) 2 drop EYE-BOTH Q4H PRN PRN Reason: Dry Eyes Last Admin: 12/26/23 10:48 Dose: 2 drop Atorvastatin Calcium (Atorvastatin Calcium 10 Mg Tablet) 10 mg PO BEDTIME [facility] Last Admin: 01/02/24 21:10 Dose: 10 mg Cyclobenzaprine HCl (Cyclobenzaprine Hcl 5 Mg Tablet) 5 mg PO TID PRN PRN Reason: back spasm Last Admin: 12/24/23 20:29 Dose: 5 mg Diphenoxylate HCl/Atropine (Diphenoxylate/Atrop 2.5/0.025 Tablet) 1 tab PO DAILY PRN PRN Reason: Diarrhea Donepezil HCl (Donepezil Hcl 5 Mg Tablet) 5 mg PO BEDTIME [facility] Last Admin: 01/02/24 21:10 Dose: 5 mg Escitalopram Oxalate (Escitalopram Oxalate 10 Mg Tablet) 10 mg PO DAILY [facility] Last Admin: 01/03/24 08:58 Dose: 10 mg Levothyroxine Sodium (Levothyroxine Sodium 88 Mcg Tablet) 88 mcg PO DAILY@0600 [facility] Last Admin: 01/03/24 06:01 Dose: 88 mcg Lidocaine (Lidocaine 4 % Patch Adh..Patch) 2 patch TRANSDERMA DAILY [facility]; Protocol Last Admin: 01/03/24 08:59 Dose: Not Given Loperamide HCl (Loperamide Hcl 2 Mg Capsule) 2 mg PO Q4H PRN PRN Reason: Loose Stool Lorazepam (Lorazepam 0.5 Mg Tablet) 0.5 mg PO DAILY PRN PRN Reason: anxiety Last Admin: 01/03/24 09:05 Dose: 0.5 mg Magnesium Hydroxide (Milk Of Magnesia 30 Ml Oral.Susp) 30 ml PO DAILY PRN PRN Reason: Constipation Memantine (Memantine Hcl 5 Mg Tablet) 5 mg PO DAILY [facility] Last Admin: 01/03/24 08:58 Dose: 5 mg Metformin HCl (Metformin Hcl Er 750 Mg Tab.Er.24h) 750 mg PO BEDTIME [facility] Last Admin: 01/02/24 21:10 Dose: 750 mg Metoprolol Succinate (Metoprolol Succinate Er 25 Mg Tab.Er.24h) 25 mg PO DAILY [facility]; Protocol Last Admin: 01/03/24 08:58 Dose: 25 mg Pt Own (Cyclosporine ([Restasis] 1 Drop)) 1 drop EYE-BOTH BID [facility] Olanzapine (Olanzapine 2.5 Mg Tablet) 2.5 mg PO Q4H PRN PRN Reason: agitation/acute psychosis Simethicone (Simethicone 80 Mg Tab.Chew) 80 mg PO QIDWMHS PRN PRN Reason: bloating Last Admin: 01/03/24 10:10 Dose: 80 mg Sitagliptin Phosphate (Sitagliptin Phosphate 100 Mg Tablet) 100 mg PO DAILY [facility] Last Admin: 01/03/24 08:59 Dose: 100 mg Spironolactone (Spironolactone 25 Mg Tablet) 12.5 mg PO DAILY [facility]; Protocol Last Admin: 01/03/24 08:57 Dose: 12.5 mg Trazodone HCl (Trazodone Hcl 50 Mg Tablet) 50 mg PO BEDTIME [facility] PRN PRN Reason: Insomnia Vitamin D (Cholecalciferol (Vitamin D3) 25 Mcg Tablet) 25 mcg PO DAILY [facility] Last Admin: 01/03/24 08:58 Dose: 25 mcg Zolpidem Tartrate (Zolpidem Tartrate 5 Mg Tablet) 5 mg PO BEDTIME [facility] Last Admin: 01/02/24 21:10 Dose: 5 mg Allergies Allergies Allergy/AdvReac Type Severity Reaction Status Date / Time codeine Allergy Unknown Verified 12/07/23 20:27 Assessment & Plan Assessment & Plan (1) Dementia with psychotic disturbance: Status: Acute Code(s): F03.92 - Unspecified dementia, unspecified severity, with psychotic disturbance Plan Mrs. Jin is a 83 year-old woman with hx of vascular dementia with delusions of having an affair and some paranoid delusions. Some insight that this may not be the case but pt very much believes and takes action based on delusion despite here reporting that it may not be happening. It is unclear report from [facility] as to suicidal ideation. no indication of imminent harm to self or others, but collateral information is pending from family. May consider antipsychotic. PLAN 1. Restart Namenda. 2. Rexulti was started and increase it to 0.5 p.o. b.i.d. at this point. We are discontinued it on December 18 since the patient has refused to take it and there is no evidence of assaultive behavior. 3. Information of healthcare proxy. 4. Reassessment with results. Reason for continued inpatient stay Substantial Risk for: inability to function, rapid decompensation and med/psych decompensation Time Spent With Patient Time: Total time managing care of this patient today __20__ minutes.
[2024-01-03 20:00] VITALS: BP 126/57; PULSE 58; RESP 18; TEMP 36.6; O2SAT 99
[2024-01-03 20:05] LABS: Glucose, Whole Blood 170 mg/dL (60-115)
[2024-01-03] MEDS: Zolpidem Tartrate 5 MG TABLET PO (20:30)
[2024-01-03] MEDS: metFORMIN HCl ER 750 MG TAB.ER.24H PO (20:30)
[2024-01-03] MEDS: Atorvastatin Calcium 10 MG TABLET PO (20:30)
[2024-01-03] MEDS: Donepezil HCl 5 MG TABLET PO (20:30)
[2024-01-03] MEDS: Acetaminophen 325 MG TABLET 650 MG PO (20:30)
[2024-01-04] MEDS: Levothyroxine Sodium 88 MCG TABLET PO (06:30)
[2024-01-04 06:58] LABS: Glucose, Whole Blood 80 mg/dL (60-115)
[2024-01-04 08:00] VITALS: BP 135/62; PULSE 57; RESP 18; TEMP 36.4; O2SAT 97
[2024-01-04 09:06] VITALS: BMI 29.5
[2024-01-04] MEDS: Simethicone 80 MG TAB.CHEW PO (09:09)
[2024-01-04] MEDS: SITagliptin Phosphate 100 MG TABLET PO (09:10)
[2024-01-04] MEDS: amLODIPine Besylate 5 MG TABLET PO (09:10)
[2024-01-04] MEDS: Spironolactone 25 MG TABLET 12.5 MG PO (09:10)
[2024-01-04] MEDS: allopurinoL 100 MG TABLET PO (09:10)
[2024-01-04] MEDS: Acetaminophen 325 MG TABLET 650 MG PO (09:11)
[2024-01-04] MEDS: Escitalopram Oxalate 10 MG TABLET PO (09:12)
[2024-01-04] MEDS: Cholecalciferol (Vitamin D3) 25 MCG TABLET PO (09:12)
[2024-01-04] MEDS: Metoprolol Succinate ER 25 MG TAB.ER.24H PO (09:12)
[2024-01-04] MEDS: Memantine HCl 5 MG TABLET PO (09:12)
--- NOTE | 2024-01-04 10:49 | HO.PSYCHPN ---
Subjective Subjective Date of Service: 01/04/24 Reason For Visit: psychosis Subjective Notes: Conditional Voluntary Interim History: The nursing staff reported no changes in her mental status pleasant cooperative fully compliant with treatment. The social media executive reported that they could not find financial clearance by the family and they are looking for placement. On interview the patient denies new symptoms waiting for placement. Mental Status Exam Mental Status Exam Patient Appearance: Appropriate Patient Orientation: Person and Situation Level of Consciousness: Awake and Appropriate Patient Behavior: Guarded and Passive Mood Description: Withdrawn Affect Description: Constricted Patient Cognition Impaired: Yes Ability to Follow Directions: Good Speech Pattern: Clear Hallucinations: None Delusions: Not Present Thought Process: Distracted and Slowed Thinking Thought Content: positive for [place] and positive for Poverty of Content Judgement: Fair Diagnostics Vital Signs (24Hr): Vital Signs - 24 hr 01/03/24 20:00 Temperature 97.9 F Pulse Rate 58 Respiratory Rate 18 Blood Pressure 126/57 L Pulse Oximetry 99 Oxygen Delivery Method Room Air BMI result Body Mass Index 29.5 Labs 12/07/23 22:16 12/30/23 07:40 Labs: Laboratory Results - last 48 hr 01/02/24 01/03/24 01/03/24 20:08 06:04 20:00 POC Glucose 224 H 106 170 H 01/04/24 06:33 POC Glucose 80 Medications Medications Current Medications Acetaminophen (Acetaminophen 325 Mg Tablet) 650 mg PO Q6H PRN PRN Reason: Headache/Pain Mild Scale (1-3) Last Admin: 01/04/24 09:11 Dose: 650 mg Al Hydroxide/Mg Hydroxide (Magnesium Hydrox/Alum Hydrox 30 Ml Oral.Susp) 30 ml PO Q6H PRN PRN Reason: Heartburn/Nausea Allopurinol (Allopurinol 100 Mg Tablet) 100 mg PO DAILY [facility] Last Admin: 01/04/24 09:10 Dose: 100 mg Amlodipine Besylate (Amlodipine Besylate 5 Mg Tablet) 5 mg PO DAILY [facility]; Protocol Last Admin: 01/04/24 09:10 Dose: 5 mg Artificial Tears (Artificial Tears 15 Ml Drops) 2 drop EYE-BOTH Q4H PRN PRN Reason: Dry Eyes Last Admin: 12/26/23 10:48 Dose: 2 drop Atorvastatin Calcium (Atorvastatin Calcium 10 Mg Tablet) 10 mg PO BEDTIME [facility] Last Admin: 01/03/24 20:30 Dose: 10 mg Cyclobenzaprine HCl (Cyclobenzaprine Hcl 5 Mg Tablet) 5 mg PO TID PRN PRN Reason: back spasm Last Admin: 12/24/23 20:29 Dose: 5 mg Diphenoxylate HCl/Atropine (Diphenoxylate/Atrop 2.5/0.025 Tablet) 1 tab PO DAILY PRN PRN Reason: Diarrhea Donepezil HCl (Donepezil Hcl 5 Mg Tablet) 5 mg PO BEDTIME [facility] Last Admin: 01/03/24 20:30 Dose: 5 mg Escitalopram Oxalate (Escitalopram Oxalate 10 Mg Tablet) 10 mg PO DAILY [facility] Last Admin: 01/04/24 09:12 Dose: 10 mg Levothyroxine Sodium (Levothyroxine Sodium 88 Mcg Tablet) 88 mcg PO DAILY@0600 [facility] Last Admin: 01/04/24 06:30 Dose: 88 mcg Lidocaine (Lidocaine 4 % Patch Adh..Patch) 2 patch TRANSDERMA DAILY [facility]; Protocol Last Admin: 01/04/24 09:13 Dose: Not Given Loperamide HCl (Loperamide Hcl 2 Mg Capsule) 2 mg PO Q4H PRN PRN Reason: Loose Stool Lorazepam (Lorazepam 0.5 Mg Tablet) 0.5 mg PO DAILY PRN PRN Reason: anxiety Last Admin: 01/03/24 09:05 Dose: 0.5 mg Magnesium Hydroxide (Milk Of Magnesia 30 Ml Oral.Susp) 30 ml PO DAILY PRN PRN Reason: Constipation Memantine (Memantine Hcl 5 Mg Tablet) 5 mg PO DAILY [facility] Last Admin: 01/04/24 09:12 Dose: 5 mg Metformin HCl (Metformin Hcl Er 750 Mg Tab.Er.24h) 750 mg PO BEDTIME [facility] Last Admin: 01/03/24 20:30 Dose: 750 mg Metoprolol Succinate (Metoprolol Succinate Er 25 Mg Tab.Er.24h) 25 mg PO DAILY [facility]; Protocol Last Admin: 01/04/24 09:12 Dose: 25 mg Pt Own (Cyclosporine ([Restasis] 1 Drop)) 1 drop EYE-BOTH BID [facility] Olanzapine (Olanzapine 2.5 Mg Tablet) 2.5 mg PO Q4H PRN PRN Reason: agitation/acute psychosis Simethicone (Simethicone 80 Mg Tab.Chew) 80 mg PO QIDWMHS PRN PRN Reason: bloating Last Admin: 09/12/24 09:09 Dose: 80 mg Sitagliptin Phosphate (Sitagliptin Phosphate 100 Mg Tablet) 100 mg PO DAILY [facility] Last Admin: 01/04/24 09:10 Dose: 100 mg Spironolactone (Spironolactone 25 Mg Tablet) 12.5 mg PO DAILY [facility]; Protocol Last Admin: 01/04/24 09:10 Dose: 12.5 mg Trazodone HCl (Trazodone Hcl 50 Mg Tablet) 50 mg PO BEDTIME MRX[facility] PRN PRN Reason: Insomnia Vitamin D (Cholecalciferol (Vitamin D3) 25 Mcg Tablet) 25 mcg PO DAILY [facility] Last Admin: 01/04/24 09:12 Dose: 25 mcg Zolpidem Tartrate (Zolpidem Tartrate 5 Mg Tablet) 5 mg PO BEDTIME [facility] Last Admin: 01/03/24 20:30 Dose: 5 mg Allergies Allergies Allergy/AdvReac Type Severity Reaction Status Date / Time codeine Allergy Unknown Verified 12/07/23 20:27 Assessment & Plan Assessment & Plan (1) Dementia with psychotic disturbance: Status: Acute Code(s): F03.92 - Unspecified dementia, unspecified severity, with psychotic disturbance Plan Mrs. Jin is a 83 year-old woman with hx of vascular dementia with delusions of having an affair and some paranoid delusions. Some insight that this may not be the case but pt very much believes and takes action based on delusion despite here reporting that it may not be happening. It is unclear report from [facility] as to suicidal ideation. no indication of imminent harm to self or others, but collateral information is pending from family. May consider antipsychotic. PLAN 1. Restart Namenda. 2. Rexulti was started and increase it to 0.5 p.o. b.i.d. at this point. We are discontinued it on December 18 since the patient has refused to take it and there is no evidence of assaultive behavior. 3. Information of healthcare proxy. 4. Reassessment with results. Reason for continued inpatient stay Substantial Risk for: inability to function, rapid decompensation and med/psych decompensation Time Spent With Patient Time: Total time managing care of this patient today __20__ minutes.
[2024-01-04 20:00] VITALS: BP 124/60; PULSE 73; RESP 16; TEMP 36.2; O2SAT 98
[2024-01-04] MEDS: metFORMIN HCl ER 750 MG TAB.ER.24H PO (20:52)
[2024-01-04] MEDS: Donepezil HCl 5 MG TABLET PO (20:52)
[2024-01-04] MEDS: Zolpidem Tartrate 5 MG TABLET PO (20:52)
[2024-01-04] MEDS: Atorvastatin Calcium 10 MG TABLET PO (20:52)
[2024-01-04 21:01] LABS: Glucose, Whole Blood 137 mg/dL (60-115)
[2024-01-04] MEDS: CYCLOSPORINE 1 EACH EYE-BOTH (22:14)
[2024-01-05] MEDS: Levothyroxine Sodium 88 MCG TABLET PO (05:56)
[2024-01-05 06:32] LABS: Glucose, Whole Blood 93 mg/dL (60-115)
[2024-01-05 08:11] VITALS: BP 125/54; PULSE 51; RESP 18; TEMP 36.4; O2SAT 99
[2024-01-05] MEDS: Simethicone 80 MG TAB.CHEW PO (08:27)
[2024-01-05] MEDS: Cholecalciferol (Vitamin D3) 25 MCG TABLET PO (08:28)
[2024-01-05] MEDS: Escitalopram Oxalate 10 MG TABLET PO (08:28)
[2024-01-05] MEDS: Acetaminophen 325 MG TABLET 650 MG PO (08:28)
[2024-01-05] MEDS: allopurinoL 100 MG TABLET PO (08:28)
[2024-01-05] MEDS: SITagliptin Phosphate 100 MG TABLET PO (08:28)
[2024-01-05] MEDS: Memantine HCl 5 MG TABLET PO (08:28)
[2024-01-05] MEDS: CYCLOSPORINE 1 EACH EYE-BOTH ×2 (08:29→20:57)
[2024-01-05 09:35] VITALS: BP 103/50; PULSE 55
--- NOTE | 2024-01-05 09:53 | P.PNPSI_ITS ---
Subjective Subjective Date of Service: 01/05/24 Reason For Visit: psychosis Interim History: I am waiting to go to a intermediate. Pt seen in bed, awake, alert, denies SI/HI/AH/VH. No sx of jaja or psychosis. Team reports adequate sleep and intake. Pt reports she prefers to eat breakfast and dinner as there is too little time between breakfast and lunch to get hungry. Team reports pt has told them she has been dizzy. VS 124/54 51 103/50 55 to 133/62 63 around mid day. Reported improvement in dizziness as the day went on. As the day has progressed she tells team she is feeling more lightheaded with fatigue. She tells team her beta paolo was changed a few months ago at [place] and she had felt the same since this changed. Medication Compliance: Yes Side effects from medications: Yes Attending Groups: Intermittent Review of Systems hypotension, lightheadedness, dizziness Medical Review of Systems: changed Review of Systems: as noted above Review of Systems Constitutional: Reports fatigue, Reports malaise and Reports weakness Reports vertigo and Reports dizziness Cardiovascular: Reports lightheadedness Reports vertigo, Reports dizziness and Reports weakness Endocrine: Reports fatigue Mental Status Exam Mental Status Exam Patient Appearance: Appropriate Patient Orientation: Person and Situation Level of Consciousness: Awake and Appropriate Patient Behavior: Guarded and Passive Mood Description: Withdrawn Affect Description: Constricted Patient Cognition Impaired: Yes Ability to Follow Directions: Good Speech Pattern: Clear Hallucinations: None Delusions: Not Present Thought Process: Distracted and Slowed Thinking Thought Content: positive for [place] and positive for Poverty of Content Judgement: Fair Diagnostics Vital Signs (24Hr): Vital Signs - 24 hr 01/04/24 20:00 01/05/24 08:11 01/05/24 09:35 Temperature 97.1 F 97.5 F Pulse Rate 73 51 55 Respiratory Rate 16 18 Blood Pressure 124/60 125/54 L 103/50 L Pulse Oximetry 98 99 Oxygen Delivery Method Room Air Room Air BMI result Body Mass Index 29.5 Labs 12/07/23 22:16 12/30/23 07:40 Labs: Laboratory Results - last 48 hr 01/03/24 01/04/24 01/04/24 20:00 06:33 20:51 POC Glucose 170 H 80 137 H 01/05/24 06:06 POC Glucose 93 Medications Medications Current Medications Acetaminophen (Acetaminophen 325 Mg Tablet) 650 mg PO Q6H PRN PRN Reason: Headache/Pain Mild Scale (1-3) Last Admin: 01/05/24 08:28 Dose: 650 mg Al Hydroxide/Mg Hydroxide (Magnesium Hydrox/Alum Hydrox 30 Ml Oral.Susp) 30 ml PO Q6H PRN PRN Reason: Heartburn/Nausea Allopurinol (Allopurinol 100 Mg Tablet) 100 mg PO DAILY [facility] Last Admin: 01/05/24 08:28 Dose: 100 mg Amlodipine Besylate (Amlodipine Besylate 5 Mg Tablet) 5 mg PO DAILY [facility]; Protocol Last Admin: 01/04/24 09:10 Dose: 5 mg Artificial Tears (Artificial Tears 15 Ml Drops) 2 drop EYE-BOTH Q4H PRN PRN Reason: Dry Eyes Last Admin: 12/26/23 10:48 Dose: 2 drop Atorvastatin Calcium (Atorvastatin Calcium 10 Mg Tablet) 10 mg PO BEDTIME [facility] Last Admin: 01/04/24 20:52 Dose: 10 mg Cyclobenzaprine HCl (Cyclobenzaprine Hcl 5 Mg Tablet) 5 mg PO TID PRN PRN Reason: back spasm Last Admin: 12/24/23 20:29 Dose: 5 mg Diphenoxylate HCl/Atropine (Diphenoxylate/Atrop 2.5/0.025 Tablet) 1 tab PO DAILY PRN PRN Reason: Diarrhea Donepezil HCl (Donepezil Hcl 5 Mg Tablet) 5 mg PO BEDTIME [facility] Last Admin: 01/04/24 20:52 Dose: 5 mg Escitalopram Oxalate (Escitalopram Oxalate 10 Mg Tablet) 10 mg PO DAILY [facility] Last Admin: 01/05/24 08:28 Dose: 10 mg Levothyroxine Sodium (Levothyroxine Sodium 88 Mcg Tablet) 88 mcg PO DAILY@0600 [facility] Last Admin: 01/05/24 05:56 Dose: 88 mcg Lidocaine (Lidocaine 4 % Patch Adh..Patch) 2 patch TRANSDERMA DAILY [facility]; Protocol Last Admin: 01/05/24 08:33 Dose: Not Given Loperamide HCl (Loperamide Hcl 2 Mg Capsule) 2 mg PO Q4H PRN PRN Reason: Loose Stool Lorazepam (Lorazepam 0.5 Mg Tablet) 0.5 mg PO DAILY PRN PRN Reason: anxiety Last Admin: 01/03/24 09:05 Dose: 0.5 mg Magnesium Hydroxide (Milk Of Magnesia 30 Ml Oral.Susp) 30 ml PO DAILY PRN PRN Reason: Constipation Memantine (Memantine Hcl 5 Mg Tablet) 5 mg PO DAILY [facility] Last Admin: 01/05/24 08:28 Dose: 5 mg Metformin HCl (Metformin Hcl Er 750 Mg Tab.Er.24h) 750 mg PO BEDTIME [facility] Last Admin: 01/04/24 20:52 Dose: 750 mg Metoprolol Succinate (Metoprolol Succinate Er 25 Mg Tab.Er.24h) 25 mg PO DAILY [facility]; Protocol Last Admin: 01/04/24 09:12 Dose: 25 mg Pt Own (Cyclosporine ([Restasis] 1 Drop)) 1 drop EYE-BOTH BID [facility] Last Admin: 01/05/24 08:29 Dose: 1 drop Olanzapine (Olanzapine 2.5 Mg Tablet) 2.5 mg PO Q4H PRN PRN Reason: agitation/acute psychosis Simethicone (Simethicone 80 Mg Tab.Chew) 80 mg PO QIDWMHS PRN PRN Reason: bloating Last Admin: 01/05/24 08:27 Dose: 80 mg Sitagliptin Phosphate (Sitagliptin Phosphate 100 Mg Tablet) 100 mg PO DAILY [facility] Last Admin: 01/05/24 08:28 Dose: 100 mg Spironolactone (Spironolactone 25 Mg Tablet) 12.5 mg PO DAILY [facility]; Protocol Last Admin: 01/04/24 09:10 Dose: 12.5 mg Trazodone HCl (Trazodone Hcl 50 Mg Tablet) 50 mg PO BEDTIME MRX1 PRN PRN Reason: Insomnia Vitamin D (Cholecalciferol (Vitamin D3) 25 Mcg Tablet) 25 mcg PO DAILY [facility] Last Admin: 01/05/24 08:28 Dose: 25 mcg Zolpidem Tartrate (Zolpidem Tartrate 5 Mg Tablet) 5 mg PO BEDTIME [facility] Last Admin: 01/04/24 20:52 Dose: 5 mg Allergies Allergies Allergy/AdvReac Type Severity Reaction Status Date / Time codeine Allergy Unknown Verified 12/07/23 20:27 Assessment & Plan Assessment & Plan (1) Dementia with psychotic disturbance: Status: Acute Code(s): F03.92 - Unspecified dementia, unspecified severity, with psychotic disturbance Plan Mrs. Jin is a 83 year-old woman with hx of vascular dementia with delusions of having an affair and some paranoid delusions. Some insight that this may not be the case but pt very much believes and takes action based on delusion despite here reporting that it may not be happening. It is unclear report from [facility] as to suicidal ideation. no indication of imminent harm to self or others, but collateral information is pending from family. May consider antipsychotic. PLAN 1. Restart Namenda. 2. Rexulti was started and increase it to 0.5 p.o. b.i.d. at this point. We are discontinued it on December 18 since the patient has refused to take it and there is no evidence of assaultive behavior. 3. Information of healthcare proxy. 4. Reassessment with results. 01/05/24 1. Hospitalist consult- hypotension, lightheadedness, dizziness 2. CBCD, CMP, TSH, A1c, Lipid Panel, EKG Reason for continued inpatient stay Substantial Risk for: med/psych decompensation Time Spent With Patient Time: Total time managing care of this patient today ____ minutes.
--- NOTE | 2024-01-05 10:58 | PC.NURSE ---
Blood pressure 121/54 and heart rate 51. Kylie report some lightheadedness. Encouraged oral fluids. Held Norvasc, Aldactone, and Toprol. Amaris Baker NP notified. Blood pressure/pulse rechecked and 0935 and 103/50 and heart rate 55; Kylie reported lightheadedness had decreased but not resolved. Amaris Baker NP notified and instructed to hold Norvasc, Aldactone, and Toprol this morning.
[2024-01-05 11:53] VITALS: BP 133/62; PULSE 53
--- NOTE | 2024-01-05 11:53 | PC.NURSE ---
Follow up bp 133/62 and pulse 53. Kylie reported lightheadedness resolved. Kianna Dawn NP notified of readings.
--- NOTE | 2024-01-05 19:12 | P.EN_ITS ---
Event Note Date of Service: 01/05/24 Event Note: Patient is 83-year-old female admitted to [facility] with hospitalist consult for hypotension, dizziness, and bradycardia since earlier today. Patient has been noted to have soft BP as low as 103/50 today. Patient has been complaining of lightheadedness and dizziness especially when sitting in her wheelchair. Patient is unable to stand and ambulate on her own and is wheelchair-bound. Pt has recently been diagnosed with dementia and reliability as a historian is uncertain. Patient states she has been on metoprolol since 1985. Believes [facility] recently attempted to make some adjustments to her medications, but she is uncertain what they were. Patient also does not know why she is on the medication. Patient is also on amlodipine 2.5 mg daily, spironolactone 12.5 mg daily, and metoprolol 25 mg daily. Today patient has been bradycardic in the 50s. Review of vitals shows patient's HR most consistently in the 60s. The plan is to hold patient's amlodipine 2.5 mg, spironolactone 12.5 mg, and decrease metoprolol to 12.5 mg daily. Will monitor HR and BP and adjust accordingly. Time Spent With Patient Time: Total time managing care of this patient today ____ minutes.
[2024-01-05 20:00] VITALS: BP 152/68; PULSE 70; RESP 16; TEMP 36.6; O2SAT 99
[2024-01-05] MEDS: Donepezil HCl 5 MG TABLET PO (20:58)
[2024-01-05] MEDS: Zolpidem Tartrate 5 MG TABLET PO (20:58)
[2024-01-05] MEDS: metFORMIN HCl ER 750 MG TAB.ER.24H PO (20:58)
[2024-01-05] MEDS: Atorvastatin Calcium 10 MG TABLET PO (20:58)
[2024-01-05 21:15] LABS: Glucose, Whole Blood 166 mg/dL (60-115)
[2024-01-06] MEDS: Levothyroxine Sodium 88 MCG TABLET PO (06:31)
[2024-01-06 06:44] LABS: Glucose, Whole Blood 100 mg/dL (60-115)
[2024-01-06 07:45] LABS: MANUAL DIFF FLAG NO
[2024-01-06 07:49] LABS: Basophils Absolute Auto 0.1 X10*3/uL (0.0-0.2); Basophils Percent Auto 0.7 % (0-2); Eosinophils Absolute Auto 0.4 X10*3/uL (0.0-0.4); Eosinophils Percent Auto 4.1 % (0-4); Hematocrit 33.8 % (37.0-47.0); Hemoglobin 11.7 g/dl (12.0-16.0); Imm Gran Abs Auto 0.03 X10*3/uL (0.00-0.03); Imm Gran Pct Auto 0.3 % (0.0-0.4); Lymphocytes Absolute Auto 2.2 X10*3/uL (1.2-4.9); Lymphocytes Percent Auto 23.8 % (20-40); Mean Corpuscular HGB Conc 34.6 g/dl (31.0-35.0); Mean Corpuscular Volume 92.3 fL (80.0-98.0); Mean Platelet Volume 9.3 fL (9.4-12.3); Monocytes Absolute Auto 0.6 X10*3/uL (0.1-1.2); Monocytes Percent Auto 6.1 % (2-11); Neutrophils Absolute Auto 5.9 x10*3/uL (2.0-8.3); Platelet Count 158 X10*3/uL (160-400); Red Blood Count 3.66 X10*6/uL (4.20-5.50); Red Cell Distribution Width 13.9 % (11.0-16.0)
[2024-01-06 08:00] VITALS: BP 118/60; PULSE 52; RESP 18; TEMP 36.8; O2SAT 96
[2024-01-06 08:01] LABS: Creatinine Clr Calc Pharmacy 38.8; Estimated Glomerular Filt Rate 46
[2024-01-06 08:10] LABS: Alanine Aminotransferase 10 U/L (0-31); Albumin Level 3.3 g/dL (3.5-5.0); Alkaline Phosphatase 80 U/L (39-117); Anion Gap 11 (12-20); Aspartate Amino Transferase 12 U/L (5-31); Bilirubin Total 0.3 mg/dL (0.0-1.0); Blood Urea Nitrogen 22 mg/dL (9-16); Calcium 9.3 mg/dL (8.4-10.2); Carbon Dioxide 24 mmol/L (22-29); Chloride 108 mmol/L (96-108); Cholesterol 124 mg/dL (<200); Creatinine Clr Calc Pharmacy 38.1; Estimated Glomerular Filt Rate 45; Glucose Random 105 mg/dL (60-115); HDL Cholesterol 58 mg/dL (>40); LDL Cholesterol Calculated 53 mg/dL (<100); Potassium 4.2 mmol/L (3.3-5.1); Sodium 139 mmol/L (135-145); Total Protein 5.6 g/dL (6.5-8.0); Triglycerides 68 mg/dL (<150)
[2024-01-06 08:19] LABS: Estimated Average Glucose 117 mg/dL; Hemoglobin A1C 115.7381 umol/L; Hemoglobin A1c % 5.7 % (<6.0); Total Hemoglobin (HGBA1C) 2959.3608 umol/L
[2024-01-06] MEDS: Metoprolol Succinate ER 12.5 MG HALFTAB.ER.24H PO (08:22)
[2024-01-06] MEDS: Memantine HCl 5 MG TABLET PO (08:23)
[2024-01-06] MEDS: Escitalopram Oxalate 10 MG TABLET PO (08:23)
[2024-01-06] MEDS: Cholecalciferol (Vitamin D3) 25 MCG TABLET PO (08:23)
[2024-01-06] MEDS: SITagliptin Phosphate 100 MG TABLET PO (08:23)
[2024-01-06 08:26] LABS: Thyroid Stimulating Hormone 0.86 uIU/mL (0.32-4.0)
[2024-01-06] MEDS: Acetaminophen 325 MG TABLET 650 MG PO (08:26)
[2024-01-06] MEDS: Simethicone 80 MG TAB.CHEW PO ×2 (08:27→21:19)
[2024-01-06] MEDS: allopurinoL 100 MG TABLET PO (08:27)
[2024-01-06] MEDS: CYCLOSPORINE 1 EACH EYE-BOTH ×3 (08:27→21:13)
--- NOTE | 2024-01-06 09:27 | P.PNPSI_ITS ---
Subjective Subjective Date of Service: 01/06/24 Reason For Visit: psychosis Subjective Notes: Conditional Voluntary Healthcare Proxy: Yes Interim History: Pt slept through the night. She reports feeling well, tired at times. No SI/HI. No overt psychosis or delusions. She reports eating well. No behavioral concerns. will monitor HR, bradicardia noted. Review of Systems Review of Systems Constitutional : No Weight loss, No Fever, No Chills, No Night Sweats, No Fatigue, No Malaise ENT/Mouth : No Hearing loss, No Ear Pain, No Nasal Congestion, No Sinus Pain, No Hoarseness, No sore throat, No Rhinorrhea, No Swallowing Difficulty Eyes: No Eye Pain, No Swelling, No Redness, No Foreign Body, No Discharge, No Vision Changes Cardiovascular : No Chest Pain, No SOB, No Dyspnea on Exertion, No Orthopnea, No Edema, No Palpitations Respiratory : No Cough, No Sputum, No Wheezing, No Smoke Exposure, No Dyspnea Gastrointestinal : No Nausea, No Vomiting, No Diarrhea, No Constipation, No abdominal Pain, No Hematochezia, No Melena Genitourinary : no irregular bleeding, No Dysuria, No Urinary Frequency, No Hematuria, No Urinary Incontinence, No Urgency, No Flank Pain, No Urinary Flow Changes, No Hesitancy Musculoskeletal : No joint pain, No Myalgias, No Joint Swelling Skin : No Skin Lesions, No rash Neuro : No Weakness, No Numbness, No Paresthesias, No Loss of Consciousness, No Dizziness, No Headache Psych : No Anxiety/Panic, No Depression, No SI/HI/AH/VH, No Social Issues, Heme/Lymph: No Bruising, No Bleeding,No Lymphadenopathy Endocrine : No Polyuria, No Polydipsia, No Temperature Intolerance Constitutional: Reports fatigue, Reports malaise and Reports weakness Reports vertigo and Reports dizziness Cardiovascular: Reports lightheadedness Reports vertigo, Reports dizziness and Reports weakness Endocrine: Reports fatigue Mental Status Exam Mental Status Exam Patient Appearance: Appropriate Patient Orientation: Person and Situation Level of Consciousness: Awake and Appropriate Patient Behavior: Guarded and Passive Mood Description: Withdrawn Affect Description: Constricted Patient Cognition Impaired: Yes Ability to Follow Directions: Good Speech Pattern: Clear Memory Description: Intact Diagnostics Vital Signs (24Hr): Vital Signs - 24 hr 01/05/24 09:35 01/05/24 11:53 01/05/24 20:00 Temperature 97.9 F Pulse Rate 55 53 70 Respiratory Rate 16 Blood Pressure 103/50 L 133/62 152/68 H Pulse Oximetry 99 Oxygen Delivery Method Room Air BMI result Body Mass Index 29.5 Labs 01/06/24 07:28 01/06/24 07:28 Labs: Laboratory Results - last 48 hr 01/04/24 01/05/24 01/05/24 20:51 06:06 20:55 WBC RBC Hgb Hct MCV MCH MCHC RDW Plt Count MPV Immature Gran % (Auto) Neut % (Auto) Lymph % (Auto) [place] % (Auto) Eos % (Auto) Baso % (Auto) Lymph # (Auto) [place] # (Auto) Eos # (Auto) Baso # (Auto) Abs Immat Gran (auto) Absolute Neuts (auto) Absolute Nucleated RBC Nucleated RBC % (auto) Sodium Potassium Chloride Carbon Dioxide Anion Gap BUN Creatinine Estim Creat Clear Calc Estimated GFR POC Glucose 137 H 93 166 H Random Glucose Estimat Average Glucose Hemoglobin A1c % Calcium Total Bilirubin AST ALT Alkaline Phosphatase Total Protein Albumin Triglycerides Cholesterol LDL Cholesterol, Calc HDL Cholesterol TSH 01/06/24 01/06/24 01/06/24 06:30 07:28 07:28 WBC 9.0 RBC 3.66 L Hgb 11.7 L Hct 33.8 L MCV 92.3 MCH 32.0 MCHC 34.6 RDW 13.9 Plt Count 158 L MPV 9.3 L Immature Gran % (Auto) 0.3 Neut % (Auto) 65.0 Lymph % (Auto) 23.8 [place] % (Auto) 6.1 Eos % (Auto) 4.1 H Baso % (Auto) 0.7 Lymph # (Auto) 2.2 [place] # (Auto) 0.6 Eos # (Auto) 0.4 Baso # (Auto) 0.1 Abs Immat Gran (auto) 0.03 Absolute Neuts (auto) 5.9 Absolute Nucleated RBC 0.000 Nucleated RBC % (auto) 0.0 Sodium 139 Potassium 4.2 Chloride 108 Carbon Dioxide 24 Anion Gap 11 L BUN 22 H Creatinine 1.13 1.15 Estim Creat Clear Calc 38.8 Estimated GFR POC Glucose 100 Random Glucose Estimat Average Glucose Hemoglobin A1c % Calcium Total Bilirubin AST ALT Alkaline Phosphatase Total Protein Albumin Triglycerides Cholesterol LDL Cholesterol, Calc HDL Cholesterol TSH 01/06/24 01/06/24 07:28 07:28 WBC RBC Hgb Hct MCV MCH MCHC RDW Plt Count MPV Immature Gran % (Auto) Neut % (Auto) Lymph % (Auto) [place] % (Auto) Eos % (Auto) Baso % (Auto) Lymph # (Auto) [place] # (Auto) Eos # (Auto) Baso # (Auto) Abs Immat Gran (auto) Absolute Neuts (auto) Absolute Nucleated RBC Nucleated RBC % (auto) Sodium Potassium Chloride Carbon Dioxide Anion Gap BUN Creatinine Estim Creat Clear Calc 38.1 Estimated GFR 46 45 POC Glucose Random Glucose 105 Estimat Average Glucose 117 Hemoglobin A1c % 5.7 Calcium 9.3 D Total Bilirubin 0.3 AST 12 ALT 10 Alkaline Phosphatase 80 Total Protein 5.6 L Albumin 3.3 L Triglycerides 68 Cholesterol 124 LDL Cholesterol, Calc 53 HDL Cholesterol 58 TSH 0.86 Medications Medications Current Medications Acetaminophen (Acetaminophen 325 Mg Tablet) 650 mg PO Q6H PRN PRN Reason: Headache/Pain Mild Scale (1-3) Last Admin: 01/06/24 08:26 Dose: 650 mg Al Hydroxide/Mg Hydroxide (Magnesium Hydrox/Alum Hydrox 30 Ml Oral.Susp) 30 ml PO Q6H PRN PRN Reason: Heartburn/Nausea Allopurinol (Allopurinol 100 Mg Tablet) 100 mg PO DAILY [facility] Last Admin: 01/06/24 08:27 Dose: 100 mg Artificial Tears (Artificial Tears 15 Ml Drops) 2 drop EYE-BOTH Q4H PRN PRN Reason: Dry Eyes Last Admin: 12/26/23 10:48 Dose: 2 drop Atorvastatin Calcium (Atorvastatin Calcium 10 Mg Tablet) 10 mg PO BEDTIME [facility] Last Admin: 01/05/24 20:58 Dose: 10 mg Cyclobenzaprine HCl (Cyclobenzaprine Hcl 5 Mg Tablet) 5 mg PO TID PRN PRN Reason: back spasm Last Admin: 12/24/23 20:29 Dose: 5 mg Diphenoxylate HCl/Atropine (Diphenoxylate/Atrop 2.5/0.025 Tablet) 1 tab PO DAILY PRN PRN Reason: Diarrhea Donepezil HCl (Donepezil Hcl 5 Mg Tablet) 5 mg PO BEDTIME [facility] Last Admin: 01/05/24 20:58 Dose: 5 mg Escitalopram Oxalate (Escitalopram Oxalate 10 Mg Tablet) 10 mg PO DAILY [facility] Last Admin: 01/06/24 08:23 Dose: 10 mg Levothyroxine Sodium (Levothyroxine Sodium 88 Mcg Tablet) 88 mcg PO DAILY@0600 [facility] Last Admin: 01/06/24 06:31 Dose: 88 mcg Lidocaine (Lidocaine 4 % Patch Adh..Patch) 2 patch TRANSDERMA DAILY [facility]; Protocol Last Admin: 01/06/24 08:23 Dose: Not Given Loperamide HCl (Loperamide Hcl 2 Mg Capsule) 2 mg PO Q4H PRN PRN Reason: Loose Stool Lorazepam (Lorazepam 0.5 Mg Tablet) 0.5 mg PO DAILY PRN PRN Reason: anxiety Last Admin: 01/03/24 09:05 Dose: 0.5 mg Magnesium Hydroxide (Milk Of Magnesia 30 Ml Oral.Susp) 30 ml PO DAILY PRN PRN Reason: Constipation Memantine (Memantine Hcl 5 Mg Tablet) 5 mg PO DAILY [facility] Last Admin: 01/06/24 08:23 Dose: 5 mg Metformin HCl (Metformin Hcl Er 750 Mg Tab.Er.24h) 750 mg PO BEDTIME [facility] Last Admin: 01/05/24 20:58 Dose: 750 mg Metoprolol Succinate (Metoprolol Succinate Er 12.5 Mg Halftab.Er.24h) 12.5 mg PO DAILY [facility]; Protocol Last Admin: 01/06/24 08:22 Dose: 12.5 mg Pt Own (Cyclosporine ([Restasis] 1 Drop)) 1 drop EYE-BOTH BID [facility] Last Admin: 01/06/24 08:29 Dose: 1 drop Olanzapine (Olanzapine 2.5 Mg Tablet) 2.5 mg PO Q4H PRN PRN Reason: agitation/acute psychosis Simethicone (Simethicone 80 Mg Tab.Chew) 80 mg PO QIDWMHS PRN PRN Reason: bloating Last Admin: 01/06/24 08:27 Dose: 80 mg Sitagliptin Phosphate (Sitagliptin Phosphate 100 Mg Tablet) 100 mg PO DAILY [facility] Last Admin: 01/06/24 08:23 Dose: 100 mg Trazodone HCl (Trazodone Hcl 50 Mg Tablet) 50 mg PO BEDTIME MRX1 PRN PRN Reason: Insomnia Vitamin D (Cholecalciferol (Vitamin D3) 25 Mcg Tablet) 25 mcg PO DAILY [facility] Last Admin: 01/06/24 08:23 Dose: 25 mcg Zolpidem Tartrate (Zolpidem Tartrate 5 Mg Tablet) 5 mg PO BEDTIME [facility] Last Admin: 01/05/24 20:58 Dose: 5 mg Allergies Allergies Allergy/AdvReac Type Severity Reaction Status Date / Time codeine Allergy Unknown Verified 12/07/23 20:27 Assessment & Plan Assessment & Plan (1) Dementia with psychotic disturbance: Status: Acute Code(s): F03.92 - Unspecified dementia, unspecified severity, with psychotic disturbance Plan Mrs. Jin is a 83 year-old woman with hx of vascular dementia with delusions of having an affair and some paranoid delusions. Some insight that this may not be the case but pt very much believes and takes action based on delusion despite here reporting that it may not be happening. It is unclear report from [facility] as to suicidal ideation. no indication of imminent harm to self or others, but collateral information is pending from family. May consider antipsychotic. PLAN 1. Restart Namenda. 2. Rexulti was started and increase it to 0.5 p.o. b.i.d. at this point. We are discontinued it on December 18 since the patient has refused to take it and there is no evidence of assaultive behavior. 3. Information of healthcare proxy. 4. Reassessment with results. 01/05/24 1. Hospitalist consult- hypotension, lightheadedness, dizziness 2. CBCD, CMP, TSH, A1c, Lipid Panel, EKG 01/05 continue tx. Reason for continued inpatient stay Substantial Risk for: inability to function Time Spent With Patient Time: Total time managing care of this patient today ____ minutes.
[2024-01-06 20:00] VITALS: BP 133/60; PULSE 65; RESP 16; TEMP 36.7; O2SAT 96
[2024-01-06] MEDS: metFORMIN HCl ER 750 MG TAB.ER.24H PO (21:12)
[2024-01-06] MEDS: Zolpidem Tartrate 5 MG TABLET PO (21:12)
[2024-01-06] MEDS: Atorvastatin Calcium 10 MG TABLET PO (21:13)
[2024-01-06] MEDS: Donepezil HCl 5 MG TABLET PO (21:13)
[2024-01-06 21:20] LABS: Glucose, Whole Blood 133 mg/dL (60-115)
[2024-01-07] MEDS: Levothyroxine Sodium 88 MCG TABLET PO (06:09)
[2024-01-07 07:24] LABS: Glucose, Whole Blood 132 mg/dL (60-115)
[2024-01-07 08:00] VITALS: BP 145/65; PULSE 66; RESP 18; TEMP 36.6; O2SAT 99
[2024-01-07] MEDS: allopurinoL 100 MG TABLET PO (08:10)
[2024-01-07] MEDS: SITagliptin Phosphate 100 MG TABLET PO (08:11)
[2024-01-07] MEDS: Metoprolol Succinate ER 12.5 MG HALFTAB.ER.24H PO (08:11)
[2024-01-07] MEDS: Escitalopram Oxalate 10 MG TABLET PO (08:12)
[2024-01-07] MEDS: Cholecalciferol (Vitamin D3) 25 MCG TABLET PO (08:12)
[2024-01-07] MEDS: Memantine HCl 5 MG TABLET PO (08:12)
[2024-01-07] MEDS: CYCLOSPORINE 1 EACH EYE-BOTH ×2 (08:12→22:03)
--- NOTE | 2024-01-07 11:19 | HO.PSYCHPN ---
Subjective Subjective Date of Service: 01/07/24 Reason For Visit: psychosis Subjective Notes: Conditional Voluntary Interim History: Pt slept through the night. She reports feeling well, tired at times. No SI/HI. No overt psychosis or delusions. She reports eating well. BP 150's today- will restart amlodipine 2.5mg po daily. dc metoprolol. Review of Systems Review of Systems Constitutional : No Weight loss, No Fever, No Chills, No Night Sweats, No Fatigue, No Malaise ENT/Mouth : No Hearing loss, No Ear Pain, No Nasal Congestion, No Sinus Pain, No Hoarseness, No sore throat, No Rhinorrhea, No Swallowing Difficulty Eyes: No Eye Pain, No Swelling, No Redness, No Foreign Body, No Discharge, No Vision Changes Cardiovascular : No Chest Pain, No SOB, No Dyspnea on Exertion, No Orthopnea, No Edema, No Palpitations Respiratory : No Cough, No Sputum, No Wheezing, No Smoke Exposure, No Dyspnea Gastrointestinal : No Nausea, No Vomiting, No Diarrhea, No Constipation, No abdominal Pain, No Hematochezia, No Melena Genitourinary : no irregular bleeding, No Dysuria, No Urinary Frequency, No Hematuria, No Urinary Incontinence, No Urgency, No Flank Pain, No Urinary Flow Changes, No Hesitancy Musculoskeletal : No joint pain, No Myalgias, No Joint Swelling Skin : No Skin Lesions, No rash Neuro : No Weakness, No Numbness, No Paresthesias, No Loss of Consciousness, No Dizziness, No Headache Psych : No Anxiety/Panic, No Depression, No SI/HI/AH/VH, No Social Issues, Heme/Lymph: No Bruising, No Bleeding,No Lymphadenopathy Endocrine : No Polyuria, No Polydipsia, No Temperature Intolerance Constitutional: Reports fatigue, Reports malaise and Reports weakness Reports vertigo and Reports dizziness Cardiovascular: Reports lightheadedness Reports vertigo, Reports dizziness and Reports weakness Endocrine: Reports fatigue Mental Status Exam Mental Status Exam Patient Appearance: Appropriate Patient Orientation: Person and Situation Level of Consciousness: Awake and Appropriate Patient Behavior: Guarded and Passive Mood Description: Withdrawn Affect Description: Constricted Patient Cognition Impaired: Yes Ability to Follow Directions: Good Speech Pattern: Clear Memory Description: Intact Diagnostics Vital Signs (24Hr): Vital Signs - 24 hr 01/06/24 20:00 01/07/24 08:00 Temperature 98.1 F 97.9 F Pulse Rate 65 66 Respiratory Rate 16 18 Blood Pressure 133/60 145/65 H Pulse Oximetry 96 99 Oxygen Delivery Method Room Air Room Air BMI result Body Mass Index 29.5 Labs 01/06/24 07:28 01/06/24 07:28 Labs: Laboratory Results - last 48 hr 01/05/24 01/06/24 01/06/24 20:55 06:30 07:28 WBC 9.0 RBC 3.66 L Hgb 11.7 L Hct 33.8 L MCV 92.3 MCH 32.0 MCHC 34.6 RDW 13.9 Plt Count 158 L MPV 9.3 L Immature Gran % (Auto) 0.3 Neut % (Auto) 65.0 Lymph % (Auto) 23.8 [place] % (Auto) 6.1 Eos % (Auto) 4.1 H Baso % (Auto) 0.7 Lymph # (Auto) 2.2 [place] # (Auto) 0.6 Eos # (Auto) 0.4 Baso # (Auto) 0.1 Abs Immat Gran (auto) 0.03 Absolute Neuts (auto) 5.9 Absolute Nucleated RBC 0.000 Nucleated RBC % (auto) 0.0 Sodium 139 Potassium 4.2 Chloride 108 Carbon Dioxide 24 Anion Gap 11 L BUN 22 H Creatinine 1.13 Estim Creat Clear Calc Estimated GFR POC Glucose 166 H 100 Random Glucose Estimat Average Glucose Hemoglobin A1c % Calcium Total Bilirubin AST ALT Alkaline Phosphatase Total Protein Albumin Triglycerides Cholesterol LDL Cholesterol, Calc HDL Cholesterol TSH 01/06/24 01/06/24 01/06/24 07:28 07:28 07:28 WBC RBC Hgb Hct MCV MCH MCHC RDW Plt Count MPV Immature Gran % (Auto) Neut % (Auto) Lymph % (Auto) [place] % (Auto) Eos % (Auto) Baso % (Auto) Lymph # (Auto) [place] # (Auto) Eos # (Auto) Baso # (Auto) Abs Immat Gran (auto) Absolute Neuts (auto) Absolute Nucleated RBC Nucleated RBC % (auto) Sodium Potassium Chloride Carbon Dioxide Anion Gap BUN Creatinine 1.15 Estim Creat Clear Calc 38.8 38.1 Estimated GFR 46 45 POC Glucose Random Glucose 105 Estimat Average Glucose 117 Hemoglobin A1c % 5.7 Calcium 9.3 D Total Bilirubin 0.3 AST 12 ALT 10 Alkaline Phosphatase 80 Total Protein 5.6 L Albumin 3.3 L Triglycerides 68 Cholesterol 124 LDL Cholesterol, Calc 53 HDL Cholesterol 58 TSH 0.86 01/06/24 01/07/24 21:11 07:18 WBC RBC Hgb Hct MCV MCH MCHC RDW Plt Count MPV Immature Gran % (Auto) Neut % (Auto) Lymph % (Auto) [place] % (Auto) Eos % (Auto) Baso % (Auto) Lymph # (Auto) [place] # (Auto) Eos # (Auto) Baso # (Auto) Abs Immat Gran (auto) Absolute Neuts (auto) Absolute Nucleated RBC Nucleated RBC % (auto) Sodium Potassium Chloride Carbon Dioxide Anion Gap BUN Creatinine Estim Creat Clear Calc Estimated GFR POC Glucose 133 H 132 H Random Glucose Estimat Average Glucose Hemoglobin A1c % Calcium Total Bilirubin AST ALT Alkaline Phosphatase Total Protein Albumin Triglycerides Cholesterol LDL Cholesterol, Calc HDL Cholesterol TSH Medications Medications Current Medications Acetaminophen (Acetaminophen 325 Mg Tablet) 650 mg PO Q6H PRN PRN Reason: Headache/Pain Mild Scale (1-3) Last Admin: 01/06/24 08:26 Dose: 650 mg Al Hydroxide/Mg Hydroxide (Magnesium Hydrox/Alum Hydrox 30 Ml Oral.Susp) 30 ml PO Q6H PRN PRN Reason: Heartburn/Nausea Allopurinol (Allopurinol 100 Mg Tablet) 100 mg PO DAILY [facility] Last Admin: 01/07/24 08:10 Dose: 100 mg Amlodipine Besylate (Amlodipine Besylate 2.5 Mg Tablet) 2.5 mg PO DAILY [facility]; Protocol Artificial Tears (Artificial Tears 15 Ml Drops) 2 drop EYE-BOTH Q4H PRN PRN Reason: Dry Eyes Last Admin: 12/26/23 10:48 Dose: 2 drop Atorvastatin Calcium (Atorvastatin Calcium 10 Mg Tablet) 10 mg PO BEDTIME [facility] Last Admin: 01/06/24 21:13 Dose: 10 mg Cyclobenzaprine HCl (Cyclobenzaprine Hcl 5 Mg Tablet) 5 mg PO TID PRN PRN Reason: back spasm Last Admin: 12/24/23 20:29 Dose: 5 mg Diphenoxylate HCl/Atropine (Diphenoxylate/Atrop 2.5/0.025 Tablet) 1 tab PO DAILY PRN PRN Reason: Diarrhea Donepezil HCl (Donepezil Hcl 5 Mg Tablet) 5 mg PO BEDTIME [facility] Last Admin: 01/06/24 21:13 Dose: 5 mg Escitalopram Oxalate (Escitalopram Oxalate 10 Mg Tablet) 10 mg PO DAILY [facility] Last Admin: 01/07/24 08:12 Dose: 10 mg Levothyroxine Sodium (Levothyroxine Sodium 88 Mcg Tablet) 88 mcg PO DAILY@0600 [facility] Last Admin: 01/07/24 06:09 Dose: 88 mcg Lidocaine (Lidocaine 4 % Patch Adh..Patch) 2 patch TRANSDERMA DAILY [facility]; Protocol Last Admin: 01/07/24 08:12 Dose: Not Given Loperamide HCl (Loperamide Hcl 2 Mg Capsule) 2 mg PO Q4H PRN PRN Reason: Loose Stool Lorazepam (Lorazepam 0.5 Mg Tablet) 0.5 mg PO DAILY PRN PRN Reason: anxiety Last Admin: 01/03/24 09:05 Dose: 0.5 mg Magnesium Hydroxide (Milk Of Magnesia 30 Ml Oral.Susp) 30 ml PO DAILY PRN PRN Reason: Constipation Memantine (Memantine Hcl 5 Mg Tablet) 5 mg PO DAILY [facility] Last Admin: 01/07/24 08:12 Dose: 5 mg Metformin HCl (Metformin Hcl Er 750 Mg Tab.Er.24h) 750 mg PO BEDTIME [facility] Last Admin: 01/06/24 21:12 Dose: 750 mg Pt Own (Cyclosporine ([Restasis] 1 Drop)) 1 drop EYE-BOTH BID [facility] Last Admin: 01/07/24 08:12 Dose: 1 drop Olanzapine (Olanzapine 2.5 Mg Tablet) 2.5 mg PO Q4H PRN PRN Reason: agitation/acute psychosis Simethicone (Simethicone 80 Mg Tab.Chew) 80 mg PO QIDWMHS PRN PRN Reason: bloating Last Admin: 01/06/24 21:19 Dose: 80 mg Sitagliptin Phosphate (Sitagliptin Phosphate 100 Mg Tablet) 100 mg PO DAILY [facility] Last Admin: 01/07/24 08:11 Dose: 100 mg Trazodone HCl (Trazodone Hcl 50 Mg Tablet) 50 mg PO BEDTIME MRX1 PRN PRN Reason: Insomnia Vitamin D (Cholecalciferol (Vitamin D3) 25 Mcg Tablet) 25 mcg PO DAILY [facility] Last Admin: 01/07/24 08:12 Dose: 25 mcg Zolpidem Tartrate (Zolpidem Tartrate 5 Mg Tablet) 5 mg PO BEDTIME [facility] Last Admin: 01/06/24 21:12 Dose: 5 mg Allergies Allergies Allergy/AdvReac Type Severity Reaction Status Date / Time codeine Allergy Unknown Verified 12/07/23 20:27 Assessment & Plan Assessment & Plan (1) Dementia with psychotic disturbance: Status: Acute Code(s): F03.92 - Unspecified dementia, unspecified severity, with psychotic disturbance Plan Mrs. Jin is a 83 year-old woman with hx of vascular dementia with delusions of having an affair and some paranoid delusions. Some insight that this may not be the case but pt very much believes and takes action based on delusion despite here reporting that it may not be happening. It is unclear report from [facility] as to suicidal ideation. no indication of imminent harm to self or others, but collateral information is pending from family. May consider antipsychotic. PLAN 1. Restart Namenda. 2. Rexulti was started and increase it to 0.5 p.o. b.i.d. at this point. We are discontinued it on December 18 since the patient has refused to take it and there is no evidence of assaultive behavior. 3. Information of healthcare proxy. 4. Reassessment with results. 01/05/24 1. Hospitalist consult- hypotension, lightheadedness, dizziness 2. CBCD, CMP, TSH, A1c, Lipid Panel, EKG 01/05 continue tx. 01/06 d/c metoprolol, amlodipine 2.5mg po daily. Reason for continued inpatient stay Substantial Risk for: inability to function Time Spent With Patient Time: Total time managing care of this patient today ____ minutes.
[2024-01-07 20:00] VITALS: BP 127/61; PULSE 62; RESP 18; TEMP 36.5; O2SAT 97
[2024-01-07 20:14] LABS: Glucose, Whole Blood 193 mg/dL (60-115)
[2024-01-07] MEDS: Simethicone 80 MG TAB.CHEW PO (21:16)
[2024-01-07] MEDS: Acetaminophen 325 MG TABLET 650 MG PO (21:16)
[2024-01-07] MEDS: Atorvastatin Calcium 10 MG TABLET PO (21:16)
[2024-01-07] MEDS: Artificial Tears 15 ML DROPS 2 DROP EYE-BOTH (21:18)
[2024-01-07] MEDS: metFORMIN HCl ER 750 MG TAB.ER.24H PO (21:18)
[2024-01-07] MEDS: Donepezil HCl 5 MG TABLET PO (21:18)
[2024-01-07] MEDS: Zolpidem Tartrate 5 MG TABLET PO (21:18)
[2024-01-08] MEDS: Levothyroxine Sodium 88 MCG TABLET PO (06:32)
[2024-01-08 06:46] LABS: Glucose, Whole Blood 113 mg/dL (60-115)
[2024-01-08 08:00] VITALS: BP 124/68; PULSE 62; RESP 18; TEMP 36.8; O2SAT 98
[2024-01-08] MEDS: Escitalopram Oxalate 10 MG TABLET PO (08:38)
[2024-01-08] MEDS: amLODIPine Besylate 2.5 MG TABLET PO (08:38)
[2024-01-08] MEDS: allopurinoL 100 MG TABLET PO (08:38)
[2024-01-08] MEDS: CYCLOSPORINE 1 EACH EYE-BOTH ×2 (08:39→21:20)
[2024-01-08] MEDS: SITagliptin Phosphate 100 MG TABLET PO (08:39)
[2024-01-08] MEDS: Cholecalciferol (Vitamin D3) 25 MCG TABLET PO (08:39)
[2024-01-08] MEDS: Memantine HCl 5 MG TABLET PO (08:39)
[2024-01-08] MEDS: Acetaminophen 325 MG TABLET 650 MG PO (10:44)
--- NOTE | 2024-01-08 11:50 | P.PNPSI_ITS ---
Subjective Subjective Date of Service: 01/08/24 Reason For Visit: psychosis Subjective Notes: Conditional Voluntary Interim History: The nursing staff reported the patient had been fully compliant with treatment no changes in her mental status. On interview the patient denies new symptoms pleasant cooperative, waiting for placement. Mental Status Exam Mental Status Exam Patient Appearance: Appropriate Patient Orientation: Person and Situation Level of Consciousness: Awake and Appropriate Patient Behavior: Guarded and Passive Mood Description: Withdrawn Affect Description: Constricted Patient Cognition Impaired: Yes Ability to Follow Directions: Good Speech Pattern: Clear Hallucinations: None Delusions: Not Present Thought Process: Distracted and Slowed Thinking Thought Content: positive for [place] and positive for Poverty of Content Judgement: Fair Diagnostics Vital Signs (24Hr): Vital Signs - 24 hr 01/07/24 20:00 01/08/24 08:00 Temperature 97.7 F 98.2 F Pulse Rate 62 62 Respiratory Rate 18 18 Blood Pressure 127/61 124/68 Pulse Oximetry 97 98 Oxygen Delivery Method Room Air Room Air BMI result Body Mass Index 29.5 Labs 01/06/24 07:28 01/06/24 07:28 Labs: Laboratory Results - last 48 hr 01/06/24 01/07/24 01/07/24 21:11 07:18 20:10 POC Glucose 133 H 132 H 193 H 01/08/24 06:35 POC Glucose 113 Medications Medications Current Medications Acetaminophen (Acetaminophen 325 Mg Tablet) 650 mg PO Q6H PRN PRN Reason: Headache/Pain Mild Scale (1-3) Last Admin: 01/08/24 10:44 Dose: 650 mg Al Hydroxide/Mg Hydroxide (Magnesium Hydrox/Alum Hydrox 30 Ml Oral.Susp) 30 ml PO Q6H PRN PRN Reason: Heartburn/Nausea Allopurinol (Allopurinol 100 Mg Tablet) 100 mg PO DAILY [facility] Last Admin: 01/08/24 08:38 Dose: 100 mg Amlodipine Besylate (Amlodipine Besylate 2.5 Mg Tablet) 2.5 mg PO DAILY [facility]; Protocol Last Admin: 01/08/24 08:38 Dose: 2.5 mg Artificial Tears (Artificial Tears 15 Ml Drops) 2 drop EYE-BOTH Q4H PRN PRN Reason: Dry Eyes Last Admin: 01/07/24 21:18 Dose: 2 drop Atorvastatin Calcium (Atorvastatin Calcium 10 Mg Tablet) 10 mg PO BEDTIME [facility] Last Admin: 01/07/24 21:16 Dose: 10 mg Cyclobenzaprine HCl (Cyclobenzaprine Hcl 5 Mg Tablet) 5 mg PO TID PRN PRN Reason: back spasm Last Admin: 12/24/23 20:29 Dose: 5 mg Diphenoxylate HCl/Atropine (Diphenoxylate/Atrop 2.5/0.025 Tablet) 1 tab PO DAILY PRN PRN Reason: Diarrhea Donepezil HCl (Donepezil Hcl 5 Mg Tablet) 5 mg PO BEDTIME [facility] Last Admin: 01/07/24 21:18 Dose: 5 mg Escitalopram Oxalate (Escitalopram Oxalate 10 Mg Tablet) 10 mg PO DAILY [facility] Last Admin: 01/08/24 08:38 Dose: 10 mg Levothyroxine Sodium (Levothyroxine Sodium 88 Mcg Tablet) 88 mcg PO DAILY@0600 [facility] Last Admin: 01/08/24 06:32 Dose: 88 mcg Lidocaine (Lidocaine 4 % Patch Adh..Patch) 2 patch TRANSDERMA DAILY [facility]; Protocol Last Admin: 01/08/24 08:39 Dose: Not Given Loperamide HCl (Loperamide Hcl 2 Mg Capsule) 2 mg PO Q4H PRN PRN Reason: Loose Stool Lorazepam (Lorazepam 0.5 Mg Tablet) 0.5 mg PO DAILY PRN PRN Reason: anxiety Last Admin: 01/03/24 09:05 Dose: 0.5 mg Magnesium Hydroxide (Milk Of Magnesia 30 Ml Oral.Susp) 30 ml PO DAILY PRN PRN Reason: Constipation Memantine (Memantine Hcl 5 Mg Tablet) 5 mg PO DAILY [facility] Last Admin: 01/08/24 08:39 Dose: 5 mg Metformin HCl (Metformin Hcl Er 750 Mg Tab.Er.24h) 750 mg PO BEDTIME [facility] Last Admin: 01/07/24 21:18 Dose: 750 mg Pt Own (Cyclosporine ([Restasis] 1 Drop)) 1 drop EYE-BOTH BID [facility] Last Admin: 01/08/24 08:39 Dose: 1 drop Olanzapine (Olanzapine 2.5 Mg Tablet) 2.5 mg PO Q4H PRN PRN Reason: agitation/acute psychosis Simethicone (Simethicone 80 Mg Tab.Chew) 80 mg PO QIDWMHS PRN PRN Reason: bloating Last Admin: 01/07/24 21:16 Dose: 80 mg Sitagliptin Phosphate (Sitagliptin Phosphate 100 Mg Tablet) 100 mg PO DAILY [facility] Last Admin: 01/08/24 08:39 Dose: 100 mg Trazodone HCl (Trazodone Hcl 50 Mg Tablet) 50 mg PO BEDTIME MRX1 PRN PRN Reason: Insomnia Vitamin D (Cholecalciferol (Vitamin D3) 25 Mcg Tablet) 25 mcg PO DAILY [facility] Last Admin: 01/08/24 08:39 Dose: 25 mcg Zolpidem Tartrate (Zolpidem Tartrate 5 Mg Tablet) 5 mg PO BEDTIME [facility] Last Admin: 01/07/24 21:18 Dose: 5 mg Allergies Allergies Allergy/AdvReac Type Severity Reaction Status Date / Time codeine Allergy Unknown Verified 12/07/23 20:27 Assessment & Plan Assessment & Plan (1) Dementia with psychotic disturbance: Status: Acute Code(s): F03.92 - Unspecified dementia, unspecified severity, with psychotic disturbance Plan Mrs. Jin is a 83 year-old woman with hx of vascular dementia with delusions of having an affair and some paranoid delusions. Some insight that this may not be the case but pt very much believes and takes action based on delusion despite here reporting that it may not be happening. It is unclear report from [facility] as to suicidal ideation. no indication of imminent harm to self or others, but collateral information is pending from family. May consider antipsychotic. PLAN 1. Restart Namenda. 2. Rexulti was started and increase it to 0.5 p.o. b.i.d. at this point. We are discontinued it on December 18 since the patient has refused to take it and there is no evidence of assaultive behavior. 3. Information of healthcare proxy. 4. Reassessment with results. 5. Waiting for placement Reason for continued inpatient stay Substantial Risk for: inability to function, rapid decompensation and med/psych decompensation Time Spent With Patient Time: Total time managing care of this patient today __20__ minutes.
[2024-01-08 19:49] LABS: Glucose, Whole Blood 196 mg/dL (60-115)
[2024-01-08 20:00] VITALS: BP 124/57; PULSE 59; RESP 16; TEMP 36.1; O2SAT 98
[2024-01-08] MEDS: Donepezil HCl 5 MG TABLET PO (21:14)
[2024-01-08] MEDS: Zolpidem Tartrate 5 MG TABLET PO (21:14)
[2024-01-08] MEDS: metFORMIN HCl ER 750 MG TAB.ER.24H PO (21:14)
[2024-01-08] MEDS: Atorvastatin Calcium 10 MG TABLET PO (21:19)
[2024-01-09] MEDS: Levothyroxine Sodium 88 MCG TABLET PO (06:17)
[2024-01-09 06:45] LABS: Glucose, Whole Blood 76 mg/dL (60-115)
[2024-01-09 07:55] VITALS: BP 134/69; PULSE 69; RESP 18; TEMP 36.8; O2SAT 97
[2024-01-09] MEDS: Memantine HCl 5 MG TABLET PO (08:10)
[2024-01-09] MEDS: amLODIPine Besylate 2.5 MG TABLET PO (08:10)
[2024-01-09] MEDS: allopurinoL 100 MG TABLET PO (08:11)
[2024-01-09] MEDS: CYCLOSPORINE 1 EACH EYE-BOTH ×2 (08:11→20:38)
[2024-01-09] MEDS: Escitalopram Oxalate 10 MG TABLET PO (08:11)
[2024-01-09] MEDS: Cholecalciferol (Vitamin D3) 25 MCG TABLET PO (08:11)
[2024-01-09] MEDS: SITagliptin Phosphate 100 MG TABLET PO (08:11)
[2024-01-09] MEDS: Simethicone 80 MG TAB.CHEW PO ×2 (09:45→20:38)
[2024-01-09] MEDS: Acetaminophen 325 MG TABLET 650 MG PO (09:45)
--- NOTE | 2024-01-09 12:22 | P.PNPSI_ITS ---
Subjective Subjective Date of Service: 01/09/24 Reason For Visit: psychosis Subjective Notes: Conditional Voluntary Interim History: The nursing staff reported the patient had been pleasant cheerful she slept 8 hours fully compliant with treatment. The psych social worker still working for placement. On interview the patient denies new symptoms, waiting for proper disposition. Mental Status Exam Mental Status Exam Patient Appearance: Appropriate Patient Orientation: Person and Situation Level of Consciousness: Awake and Appropriate Patient Behavior: Guarded and Passive Mood Description: Withdrawn Affect Description: Constricted Patient Cognition Impaired: Yes Ability to Follow Directions: Good Speech Pattern: Clear Hallucinations: None Delusions: Not Present Thought Process: Distracted and Slowed Thinking Thought Content: positive for [place] and positive for Poverty of Content Judgement: Fair Diagnostics Vital Signs (24Hr): Vital Signs - 24 hr 01/08/24 20:00 01/09/24 07:55 Temperature 97 F 98.2 F Pulse Rate 59 69 Respiratory Rate 16 18 Blood Pressure 124/57 L 134/69 Pulse Oximetry 98 97 Oxygen Delivery Method Room Air Room Air BMI result Body Mass Index 29.5 Labs 01/06/24 07:28 01/06/24 07:28 Labs: Laboratory Results - last 48 hr 01/07/24 01/08/24 01/08/24 20:10 06:35 19:38 POC Glucose 193 H 113 196 H 01/09/24 06:39 POC Glucose 76 Medications Medications Current Medications Acetaminophen (Acetaminophen 325 Mg Tablet) 650 mg PO Q6H PRN PRN Reason: Headache/Pain Mild Scale (1-3) Last Admin: 01/09/24 09:45 Dose: 650 mg Al Hydroxide/Mg Hydroxide (Magnesium Hydrox/Alum Hydrox 30 Ml Oral.Susp) 30 ml PO Q6H PRN PRN Reason: Heartburn/Nausea Allopurinol (Allopurinol 100 Mg Tablet) 100 mg PO DAILY [facility] Last Admin: 01/09/24 08:11 Dose: 100 mg Amlodipine Besylate (Amlodipine Besylate 2.5 Mg Tablet) 2.5 mg PO DAILY [facility]; Protocol Last Admin: 01/09/24 08:10 Dose: 2.5 mg Artificial Tears (Artificial Tears 15 Ml Drops) 2 drop EYE-BOTH Q4H PRN PRN Reason: Dry Eyes Last Admin: 01/07/24 21:18 Dose: 2 drop Atorvastatin Calcium (Atorvastatin Calcium 10 Mg Tablet) 10 mg PO BEDTIME [facility] Last Admin: 01/08/24 21:19 Dose: 10 mg Cyclobenzaprine HCl (Cyclobenzaprine Hcl 5 Mg Tablet) 5 mg PO TID PRN PRN Reason: back spasm Last Admin: 12/24/23 20:29 Dose: 5 mg Diphenoxylate HCl/Atropine (Diphenoxylate/Atrop 2.5/0.025 Tablet) 1 tab PO DAILY PRN PRN Reason: Diarrhea Donepezil HCl (Donepezil Hcl 5 Mg Tablet) 5 mg PO BEDTIME [facility] Last Admin: 01/08/24 21:14 Dose: 5 mg Escitalopram Oxalate (Escitalopram Oxalate 10 Mg Tablet) 10 mg PO DAILY [facility] Last Admin: 01/09/24 08:11 Dose: 10 mg Levothyroxine Sodium (Levothyroxine Sodium 88 Mcg Tablet) 88 mcg PO DAILY@0600 [facility] Last Admin: 01/09/24 06:17 Dose: 88 mcg Lidocaine (Lidocaine 4 % Patch Adh..Patch) 2 patch TRANSDERMA DAILY [facility]; Protocol Last Admin: 01/09/24 08:11 Dose: Not Given Loperamide HCl (Loperamide Hcl 2 Mg Capsule) 2 mg PO Q4H PRN PRN Reason: Loose Stool Lorazepam (Lorazepam 0.5 Mg Tablet) 0.5 mg PO DAILY PRN PRN Reason: anxiety Last Admin: 01/03/24 09:05 Dose: 0.5 mg Magnesium Hydroxide (Milk Of Magnesia 30 Ml Oral.Susp) 30 ml PO DAILY PRN PRN Reason: Constipation Memantine (Memantine Hcl 5 Mg Tablet) 5 mg PO DAILY [facility] Last Admin: 01/09/24 08:10 Dose: 5 mg Metformin HCl (Metformin Hcl Er 750 Mg Tab.Er.24h) 750 mg PO BEDTIME [facility] Last Admin: 01/08/24 21:14 Dose: 750 mg Pt Own (Cyclosporine ([Restasis] 1 Drop)) 1 drop EYE-BOTH BID [facility] Last Admin: 01/09/24 08:11 Dose: 1 drop Olanzapine (Olanzapine 2.5 Mg Tablet) 2.5 mg PO Q4H PRN PRN Reason: agitation/acute psychosis Simethicone (Simethicone 80 Mg Tab.Chew) 80 mg PO QIDWMHS PRN PRN Reason: bloating Last Admin: 01/09/24 09:45 Dose: 80 mg Sitagliptin Phosphate (Sitagliptin Phosphate 100 Mg Tablet) 100 mg PO DAILY [facility] Last Admin: 01/09/24 08:11 Dose: 100 mg Trazodone HCl (Trazodone Hcl 50 Mg Tablet) 50 mg PO BEDTIME MRX1 PRN PRN Reason: Insomnia Vitamin D (Cholecalciferol (Vitamin D3) 25 Mcg Tablet) 25 mcg PO DAILY [facility] Last Admin: 01/09/24 08:11 Dose: 25 mcg Zolpidem Tartrate (Zolpidem Tartrate 5 Mg Tablet) 5 mg PO BEDTIME [facility] Last Admin: 01/08/24 21:14 Dose: 5 mg Allergies Allergies Allergy/AdvReac Type Severity Reaction Status Date / Time codeine Allergy Unknown Verified 12/07/23 20:27 Assessment & Plan Assessment & Plan (1) Dementia with psychotic disturbance: Status: Acute Code(s): F03.92 - Unspecified dementia, unspecified severity, with psychotic disturbance Plan Mrs. Jin is a 83 year-old woman with hx of vascular dementia with delusions of having an affair and some paranoid delusions. Some insight that this may not be the case but pt very much believes and takes action based on delusion despite here reporting that it may not be happening. It is unclear report from [facility] as to suicidal ideation. no indication of imminent harm to self or others, but collateral information is pending from family. May consider antipsychotic. PLAN 1. Restart Namenda. 2. Rexulti was started and increase it to 0.5 p.o. b.i.d. at this point. We are discontinued it on December 18 since the patient has refused to take it and there is no evidence of assaultive behavior. 3. Information of healthcare proxy. 4. Reassessment with results. 5. Waiting for placement Reason for continued inpatient stay Substantial Risk for: inability to function, rapid decompensation and med/psych decompensation Time Spent With Patient Time: Total time managing care of this patient today __20__ minutes.
[2024-01-09 20:00] VITALS: BP 130/58; PULSE 73; RESP 18; TEMP 36.1; O2SAT 96
[2024-01-09] MEDS: metFORMIN HCl ER 750 MG TAB.ER.24H PO (20:26)
[2024-01-09] MEDS: Donepezil HCl 5 MG TABLET PO (20:26)
[2024-01-09] MEDS: Atorvastatin Calcium 10 MG TABLET PO (20:26)
[2024-01-09] MEDS: Zolpidem Tartrate 5 MG TABLET PO (20:26)
[2024-01-09 21:03] LABS: Glucose, Whole Blood 192 mg/dL (60-115)
[2024-01-10] MEDS: Diphenoxylate/Atrop 2.5/0.025 TABLET 1 TAB PO (01:42)
[2024-01-10] MEDS: Levothyroxine Sodium 88 MCG TABLET PO (06:02)
[2024-01-10 06:38] LABS: Glucose, Whole Blood 94 mg/dL (60-115)
[2024-01-10 08:52] VITALS: BP 127/62; PULSE 84; RESP 18; TEMP 36.2; O2SAT 95
[2024-01-10] MEDS: Artificial Tears 15 ML DROPS 2 DROP EYE-BOTH (09:25)
[2024-01-10] MEDS: Cholecalciferol (Vitamin D3) 25 MCG TABLET PO (09:26)
[2024-01-10] MEDS: Simethicone 80 MG TAB.CHEW PO (09:26)
[2024-01-10] MEDS: Acetaminophen 325 MG TABLET 650 MG PO ×2 (09:26→20:35)
[2024-01-10] MEDS: LORazepam 0.5 MG TABLET PO (09:26)
[2024-01-10] MEDS: amLODIPine Besylate 2.5 MG TABLET PO (09:26)
[2024-01-10] MEDS: Memantine HCl 5 MG TABLET PO (09:26)
[2024-01-10] MEDS: Escitalopram Oxalate 10 MG TABLET PO (09:26)
[2024-01-10] MEDS: SITagliptin Phosphate 100 MG TABLET PO (09:26)
[2024-01-10] MEDS: allopurinoL 100 MG TABLET PO (09:26)
[2024-01-10] MEDS: CYCLOSPORINE 1 EACH EYE-BOTH ×2 (09:53→20:34)
--- NOTE | 2024-01-10 16:05 | HO.PSYCHPN ---
Subjective Subjective Date of Service: 01/10/24 Reason For Visit: psychosis Subjective Notes: Conditional Voluntary Interim History: The nursing staff reported the patient had been pleasant cooperative, confused but easily redirectable. On interview the patient denies new symptoms, waiting for placement. Mental Status Exam Mental Status Exam Patient Appearance: Well Grooomed and Appropriate Patient Orientation: Person and Situation Level of Consciousness: Awake and Appropriate Patient Behavior: Guarded and Passive Mood Description: Withdrawn Affect Description: Constricted Patient Cognition Impaired: Yes Ability to Follow Directions: Good Speech Pattern: Clear Hallucinations: None Delusions: Not Present Thought Process: Distracted Thought Content: positive for [place] and positive for Poverty of Content Judgement: Fair Diagnostics Vital Signs (24Hr): Vital Signs - 24 hr 01/09/24 20:00 01/10/24 08:52 Temperature 96.9 F 97.1 F Pulse Rate 73 84 Respiratory Rate 18 18 Blood Pressure 130/58 L 127/62 Pulse Oximetry 96 95 Oxygen Delivery Method Room Air Room Air BMI result Body Mass Index 29.5 Labs 01/06/24 07:28 01/06/24 07:28 Labs: Laboratory Results - last 48 hr 01/08/24 01/09/24 01/09/24 19:38 06:39 20:58 POC Glucose 196 H 76 192 H 01/10/24 06:15 POC Glucose 94 Medications Medications Current Medications Acetaminophen (Acetaminophen 325 Mg Tablet) 650 mg PO Q6H PRN PRN Reason: Headache/Pain Mild Scale (1-3) Last Admin: 01/10/24 09:26 Dose: 650 mg Al Hydroxide/Mg Hydroxide (Magnesium Hydrox/Alum Hydrox 30 Ml Oral.Susp) 30 ml PO Q6H PRN PRN Reason: Heartburn/Nausea Allopurinol (Allopurinol 100 Mg Tablet) 100 mg PO DAILY [facility] Last Admin: 01/10/24 09:26 Dose: 100 mg Amlodipine Besylate (Amlodipine Besylate 2.5 Mg Tablet) 2.5 mg PO DAILY [facility]; Protocol Last Admin: 01/10/24 09:26 Dose: 2.5 mg Artificial Tears (Artificial Tears 15 Ml Drops) 2 drop EYE-BOTH Q4H PRN PRN Reason: Dry Eyes Last Admin: 01/10/24 09:25 Dose: 2 drop Atorvastatin Calcium (Atorvastatin Calcium 10 Mg Tablet) 10 mg PO BEDTIME [facility] Last Admin: 09/17/24 20:26 Dose: 10 mg Cyclobenzaprine HCl (Cyclobenzaprine Hcl 5 Mg Tablet) 5 mg PO TID PRN PRN Reason: back spasm Last Admin: 12/24/23 20:29 Dose: 5 mg Diphenoxylate HCl/Atropine (Diphenoxylate/Atrop 2.5/0.025 Tablet) 1 tab PO DAILY PRN PRN Reason: Diarrhea Last Admin: 01/10/24 01:42 Dose: 1 tab Donepezil HCl (Donepezil Hcl 5 Mg Tablet) 5 mg PO BEDTIME [facility] Last Admin: 01/09/24 20:26 Dose: 5 mg Escitalopram Oxalate (Escitalopram Oxalate 10 Mg Tablet) 10 mg PO DAILY [facility] Last Admin: 01/10/24 09:26 Dose: 10 mg Levothyroxine Sodium (Levothyroxine Sodium 88 Mcg Tablet) 88 mcg PO DAILY@0600 [facility] Last Admin: 01/10/24 06:02 Dose: 88 mcg Lidocaine (Lidocaine 4 % Patch Adh..Patch) 2 patch TRANSDERMA DAILY [facility]; Protocol Last Admin: 01/10/24 10:05 Dose: Not Given Loperamide HCl (Loperamide Hcl 2 Mg Capsule) 2 mg PO Q4H PRN PRN Reason: Loose Stool Lorazepam (Lorazepam 0.5 Mg Tablet) 0.5 mg PO DAILY PRN PRN Reason: anxiety Last Admin: 01/10/24 09:26 Dose: 0.5 mg Magnesium Hydroxide (Milk Of Magnesia 30 Ml Oral.Susp) 30 ml PO DAILY PRN PRN Reason: Constipation Memantine (Memantine Hcl 5 Mg Tablet) 5 mg PO DAILY [facility] Last Admin: 01/10/24 09:26 Dose: 5 mg Metformin HCl (Metformin Hcl Er 750 Mg Tab.Er.24h) 750 mg PO BEDTIME [facility] Last Admin: 01/09/24 20:26 Dose: 750 mg Pt Own (Cyclosporine ([Restasis] 1 Drop)) 1 drop EYE-BOTH BID [facility] Last Admin: 01/10/24 09:53 Dose: 1 drop Olanzapine (Olanzapine 2.5 Mg Tablet) 2.5 mg PO Q4H PRN PRN Reason: agitation/acute psychosis Simethicone (Simethicone 80 Mg Tab.Chew) 80 mg PO QIDWMHS PRN PRN Reason: bloating Last Admin: 01/10/24 09:26 Dose: 80 mg Sitagliptin Phosphate (Sitagliptin Phosphate 100 Mg Tablet) 100 mg PO DAILY [facility] Last Admin: 01/10/24 09:26 Dose: 100 mg Trazodone HCl (Trazodone Hcl 50 Mg Tablet) 50 mg PO BEDTIME MRX1 PRN PRN Reason: Insomnia Vitamin D (Cholecalciferol (Vitamin D3) 25 Mcg Tablet) 25 mcg PO DAILY [facility] Last Admin: 01/10/24 09:26 Dose: 25 mcg Zolpidem Tartrate (Zolpidem Tartrate 5 Mg Tablet) 5 mg PO BEDTIME [facility] Last Admin: 01/09/24 20:26 Dose: 5 mg Allergies Allergies Allergy/AdvReac Type Severity Reaction Status Date / Time codeine Allergy Unknown Verified 12/07/23 20:27 Assessment & Plan Assessment & Plan (1) Dementia with psychotic disturbance: Status: Acute Code(s): F03.92 - Unspecified dementia, unspecified severity, with psychotic disturbance Plan Mrs. Jin is a 83 year-old woman with hx of vascular dementia with delusions of having an affair and some paranoid delusions. Some insight that this may not be the case but pt very much believes and takes action based on delusion despite here reporting that it may not be happening. It is unclear report from [facility] as to suicidal ideation. no indication of imminent harm to self or others, but collateral information is pending from family. May consider antipsychotic. PLAN 1. Restart Namenda. 2. Rexulti was started and increase it to 0.5 p.o. b.i.d. at this point. We are discontinued it on December 18 since the patient has refused to take it and there is no evidence of assaultive behavior. 3. Information of healthcare proxy. 4. Reassessment with results. 5. Waiting for placement Reason for continued inpatient stay Substantial Risk for: inability to function, rapid decompensation and med/psych decompensation Time Spent With Patient Time: Total time managing care of this patient today __20__ minutes.
[2024-01-10 20:00] VITALS: BP 124/56; PULSE 64; RESP 16; TEMP 36.3; O2SAT 99
[2024-01-10 20:09] LABS: Glucose, Whole Blood 159 mg/dL (60-115)
[2024-01-10] MEDS: Atorvastatin Calcium 10 MG TABLET PO (20:35)
[2024-01-10] MEDS: metFORMIN HCl ER 750 MG TAB.ER.24H PO (20:35)
[2024-01-10] MEDS: Donepezil HCl 5 MG TABLET PO (20:35)
[2024-01-10] MEDS: Zolpidem Tartrate 5 MG TABLET PO (20:35)
[2024-01-11] MEDS: Levothyroxine Sodium 88 MCG TABLET PO (06:21)
[2024-01-11 06:42] LABS: Glucose, Whole Blood 100 mg/dL (60-115)
[2024-01-11 08:54] VITALS: BMI 30.5
--- NOTE | 2024-01-11 09:18 | P.PNPSI_ITS ---
Subjective Subjective Date of Service: 01/11/24 Reason For Visit: psychosis Subjective Notes: Conditional Voluntary Interim History: The nursing staff reported the patient had been compliant with treatment, she slept well last night. On interview the patient denies new symptoms waiting for placement. The social secretary reported they are still waiting for placement. Mental Status Exam Mental Status Exam Patient Appearance: Well Grooomed and Appropriate Patient Orientation: Person and Situation Level of Consciousness: Awake and Appropriate Patient Behavior: Guarded and Passive Mood Description: Withdrawn Affect Description: Constricted Patient Cognition Impaired: Yes Ability to Follow Directions: Good Speech Pattern: Clear Hallucinations: None Delusions: Not Present Thought Process: Distracted and Slowed Thinking Thought Content: positive for [place] and positive for Poverty of Content Judgement: Fair Diagnostics Vital Signs (24Hr): Vital Signs - 24 hr 01/10/24 20:00 Temperature 97.4 F Pulse Rate 64 Respiratory Rate 16 Blood Pressure 124/56 L Pulse Oximetry 99 Oxygen Delivery Method Room Air BMI result Body Mass Index 30.5 Labs 01/06/24 07:28 01/06/24 07:28 Labs: Laboratory Results - last 48 hr 01/09/24 01/10/24 01/10/24 20:58 06:15 20:04 POC Glucose 192 H 94 159 H 01/11/24 06:23 POC Glucose 100 Medications Medications Current Medications Acetaminophen (Acetaminophen 325 Mg Tablet) 650 mg PO Q6H PRN PRN Reason: Headache/Pain Mild Scale (1-3) Last Admin: 01/10/24 20:35 Dose: 650 mg Al Hydroxide/Mg Hydroxide (Magnesium Hydrox/Alum Hydrox 30 Ml Oral.Susp) 30 ml PO Q6H PRN PRN Reason: Heartburn/Nausea Allopurinol (Allopurinol 100 Mg Tablet) 100 mg PO DAILY [facility] Last Admin: 01/10/24 09:26 Dose: 100 mg Amlodipine Besylate (Amlodipine Besylate 2.5 Mg Tablet) 2.5 mg PO DAILY [facility]; Protocol Last Admin: 01/10/24 09:26 Dose: 2.5 mg Artificial Tears (Artificial Tears 15 Ml Drops) 2 drop EYE-BOTH Q4H PRN PRN Reason: Dry Eyes Last Admin: 01/10/24 09:25 Dose: 2 drop Atorvastatin Calcium (Atorvastatin Calcium 10 Mg Tablet) 10 mg PO BEDTIME [facility] Last Admin: 01/10/24 20:35 Dose: 10 mg Cyclobenzaprine HCl (Cyclobenzaprine Hcl 5 Mg Tablet) 5 mg PO TID PRN PRN Reason: back spasm Last Admin: 12/24/23 20:29 Dose: 5 mg Diphenoxylate HCl/Atropine (Diphenoxylate/Atrop 2.5/0.025 Tablet) 1 tab PO DAILY PRN PRN Reason: Diarrhea Last Admin: 01/10/24 01:42 Dose: 1 tab Donepezil HCl (Donepezil Hcl 5 Mg Tablet) 5 mg PO BEDTIME [facility] Last Admin: 01/10/24 20:35 Dose: 5 mg Escitalopram Oxalate (Escitalopram Oxalate 10 Mg Tablet) 10 mg PO DAILY [facility] Last Admin: 01/10/24 09:26 Dose: 10 mg Levothyroxine Sodium (Levothyroxine Sodium 88 Mcg Tablet) 88 mcg PO DAILY@0600 [facility] Last Admin: 01/11/24 06:21 Dose: 88 mcg Lidocaine (Lidocaine 4 % Patch Adh..Patch) 2 patch TRANSDERMA DAILY [facility]; Protocol Last Admin: 01/10/24 10:05 Dose: Not Given Loperamide HCl (Loperamide Hcl 2 Mg Capsule) 2 mg PO Q4H PRN PRN Reason: Loose Stool Lorazepam (Lorazepam 0.5 Mg Tablet) 0.5 mg PO DAILY PRN PRN Reason: anxiety Last Admin: 01/10/24 09:26 Dose: 0.5 mg Magnesium Hydroxide (Milk Of Magnesia 30 Ml Oral.Susp) 30 ml PO DAILY PRN PRN Reason: Constipation Memantine (Memantine Hcl 5 Mg Tablet) 5 mg PO DAILY [facility] Last Admin: 01/10/24 09:26 Dose: 5 mg Metformin HCl (Metformin Hcl Er 750 Mg Tab.Er.24h) 750 mg PO BEDTIME [facility] Last Admin: 01/10/24 20:35 Dose: 750 mg Pt Own (Cyclosporine ([Restasis] 1 Drop)) 1 drop EYE-BOTH BID [facility] Last Admin: 01/10/24 20:34 Dose: 1 drop Olanzapine (Olanzapine 2.5 Mg Tablet) 2.5 mg PO Q4H PRN PRN Reason: agitation/acute psychosis Simethicone (Simethicone 80 Mg Tab.Chew) 80 mg PO QIDWMHS PRN PRN Reason: bloating Last Admin: 01/10/24 09:26 Dose: 80 mg Sitagliptin Phosphate (Sitagliptin Phosphate 100 Mg Tablet) 100 mg PO DAILY [facility] Last Admin: 01/10/24 09:26 Dose: 100 mg Trazodone HCl (Trazodone Hcl 50 Mg Tablet) 50 mg PO BEDTIME MRX1 PRN PRN Reason: Insomnia Vitamin D (Cholecalciferol (Vitamin D3) 25 Mcg Tablet) 25 mcg PO DAILY [facility] Last Admin: 01/10/24 09:26 Dose: 25 mcg Zolpidem Tartrate (Zolpidem Tartrate 5 Mg Tablet) 5 mg PO BEDTIME [facility] Last Admin: 01/10/24 20:35 Dose: 5 mg Allergies Allergies Allergy/AdvReac Type Severity Reaction Status Date / Time codeine Allergy Unknown Verified 12/07/23 20:27 Assessment & Plan Assessment & Plan (1) Dementia with psychotic disturbance: Status: Acute Code(s): F03.92 - Unspecified dementia, unspecified severity, with psychotic disturbance Plan Mrs. Jin is a 83 year-old woman with hx of vascular dementia with delusions of having an affair and some paranoid delusions. Some insight that this may not be the case but pt very much believes and takes action based on delusion despite here reporting that it may not be happening. It is unclear report from [facility] as to suicidal ideation. no indication of imminent harm to self or others, but collateral information is pending from family. May consider antipsychotic. PLAN 1. Restart Namenda. 2. Rexulti was started and increase it to 0.5 p.o. b.i.d. at this point. We are discontinued it on December 18 since the patient has refused to take it and there is no evidence of assaultive behavior. 3. Information of healthcare proxy. 4. Reassessment with results. 5. Waiting for placement Reason for continued inpatient stay Substantial Risk for: inability to function, rapid decompensation and med/psych decompensation Time Spent With Patient Time: Total time managing care of this patient today __20__ minutes.
[2024-01-11 09:25] VITALS: BP 143/63; PULSE 74; RESP 16; TEMP 36.6; O2SAT 97
[2024-01-11] MEDS: SITagliptin Phosphate 100 MG TABLET PO (09:25)
[2024-01-11] MEDS: Memantine HCl 5 MG TABLET PO (09:25)
[2024-01-11] MEDS: Escitalopram Oxalate 10 MG TABLET PO (09:25)
[2024-01-11] MEDS: Cholecalciferol (Vitamin D3) 25 MCG TABLET PO (09:25)
[2024-01-11] MEDS: amLODIPine Besylate 2.5 MG TABLET PO (09:25)
[2024-01-11] MEDS: allopurinoL 100 MG TABLET PO (09:25)
[2024-01-11] MEDS: Simethicone 80 MG TAB.CHEW PO (10:15)
[2024-01-11] MEDS: Acetaminophen 325 MG TABLET 650 MG PO (10:15)
[2024-01-11] MEDS: CYCLOSPORINE 1 EACH EYE-BOTH ×2 (10:20→20:42)
[2024-01-11 20:00] VITALS: BP 142/62; PULSE 67; RESP 16; TEMP 36.6; O2SAT 97
[2024-01-11 20:27] LABS: Glucose, Whole Blood 158 mg/dL (60-115)
[2024-01-11] MEDS: metFORMIN HCl ER 750 MG TAB.ER.24H PO (20:42)
[2024-01-11] MEDS: Zolpidem Tartrate 5 MG TABLET PO (20:42)
[2024-01-11] MEDS: Atorvastatin Calcium 10 MG TABLET PO (20:42)
[2024-01-11] MEDS: Donepezil HCl 5 MG TABLET PO (20:42)
[2024-01-12] MEDS: Levothyroxine Sodium 88 MCG TABLET PO (06:41)
[2024-01-12 06:49] LABS: Glucose, Whole Blood 91 mg/dL (60-115)
[2024-01-12 08:53] VITALS: BP 126/58; PULSE 68; RESP 16; TEMP 36.8; O2SAT 99
[2024-01-12] MEDS: amLODIPine Besylate 2.5 MG TABLET PO (08:55)
[2024-01-12] MEDS: Escitalopram Oxalate 10 MG TABLET PO (08:56)
[2024-01-12] MEDS: Memantine HCl 5 MG TABLET PO (08:56)
[2024-01-12] MEDS: Cholecalciferol (Vitamin D3) 25 MCG TABLET PO (08:56)
[2024-01-12] MEDS: CYCLOSPORINE 1 EACH EYE-BOTH ×2 (08:56→20:51)
[2024-01-12] MEDS: SITagliptin Phosphate 100 MG TABLET PO (08:56)
[2024-01-12] MEDS: allopurinoL 100 MG TABLET PO (08:56)
[2024-01-12] MEDS: Acetaminophen 325 MG TABLET 650 MG PO (09:46)
--- NOTE | 2024-01-12 16:00 | P.PNPSI_ITS ---
Subjective Subjective Date of Service: 01/12/24 Reason For Visit: psychosis Subjective Notes: Conditional Voluntary Interim History: The nursing staff reported the patient had been compliant with treatment, slept well. The social service liaison reported that contact the family and working on placement. On interview the patient denies new symptoms. She asked about the hearing that she will have for guardianship. Mental Status Exam Mental Status Exam Patient Appearance: Well Grooomed and Appropriate Patient Orientation: Person and Situation Level of Consciousness: Awake and Appropriate Patient Behavior: Guarded and Passive Mood Description: Withdrawn Affect Description: Constricted Patient Cognition Impaired: Yes Ability to Follow Directions: Good Speech Pattern: Clear Hallucinations: None Delusions: Ideas of Reference Thought Process: Distracted and Slowed Thinking Thought Content: positive for [place] and positive for Poverty of Content Judgement: Poor Diagnostics Vital Signs (24Hr): Vital Signs - 24 hr 01/11/24 20:00 01/12/24 08:53 Temperature 97.8 F 98.3 F Pulse Rate 67 68 Respiratory Rate 16 16 Blood Pressure 142/62 H 126/58 L Pulse Oximetry 97 99 Oxygen Delivery Method Room Air Room Air BMI result Body Mass Index 30.5 Labs 01/06/24 07:28 01/06/24 07:28 Labs: Laboratory Results - last 48 hr 01/10/24 01/11/24 01/11/24 20:04 06:23 20:22 POC Glucose 159 H 100 158 H 01/12/24 06:34 POC Glucose 91 Medications Medications Current Medications Acetaminophen (Acetaminophen 325 Mg Tablet) 650 mg PO Q6H PRN PRN Reason: Headache/Pain Mild Scale (1-3) Last Admin: 01/12/24 09:46 Dose: 650 mg Al Hydroxide/Mg Hydroxide (Magnesium Hydrox/Alum Hydrox 30 Ml Oral.Susp) 30 ml PO Q6H PRN PRN Reason: Heartburn/Nausea Allopurinol (Allopurinol 100 Mg Tablet) 100 mg PO DAILY [facility] Last Admin: 01/12/24 08:56 Dose: 100 mg Amlodipine Besylate (Amlodipine Besylate 2.5 Mg Tablet) 2.5 mg PO DAILY [facility]; Protocol Last Admin: 01/12/24 08:55 Dose: 2.5 mg Artificial Tears (Artificial Tears 15 Ml Drops) 2 drop EYE-BOTH Q4H PRN PRN Reason: Dry Eyes Last Admin: 01/10/24 09:25 Dose: 2 drop Atorvastatin Calcium (Atorvastatin Calcium 10 Mg Tablet) 10 mg PO BEDTIME [facility] Last Admin: 01/11/24 20:42 Dose: 10 mg Cyclobenzaprine HCl (Cyclobenzaprine Hcl 5 Mg Tablet) 5 mg PO TID PRN PRN Reason: back spasm Last Admin: 12/24/23 20:29 Dose: 5 mg Diphenoxylate HCl/Atropine (Diphenoxylate/Atrop 2.5/0.025 Tablet) 1 tab PO DAILY PRN PRN Reason: Diarrhea Last Admin: 01/10/24 01:42 Dose: 1 tab Donepezil HCl (Donepezil Hcl 5 Mg Tablet) 5 mg PO BEDTIME [facility] Last Admin: 01/11/24 20:42 Dose: 5 mg Escitalopram Oxalate (Escitalopram Oxalate 10 Mg Tablet) 10 mg PO DAILY [facility] Last Admin: 01/12/24 08:56 Dose: 10 mg Levothyroxine Sodium (Levothyroxine Sodium 88 Mcg Tablet) 88 mcg PO DAILY@0600 [facility] Last Admin: 01/12/24 06:41 Dose: 88 mcg Lidocaine (Lidocaine 4 % Patch Adh..Patch) 2 patch TRANSDERMA DAILY [facility]; Protocol Last Admin: 01/12/24 08:56 Dose: Not Given Loperamide HCl (Loperamide Hcl 2 Mg Capsule) 2 mg PO Q4H PRN PRN Reason: Loose Stool Lorazepam (Lorazepam 0.5 Mg Tablet) 0.5 mg PO DAILY PRN PRN Reason: anxiety Last Admin: 01/10/24 09:26 Dose: 0.5 mg Magnesium Hydroxide (Milk Of Magnesia 30 Ml Oral.Susp) 30 ml PO DAILY PRN PRN Reason: Constipation Memantine (Memantine Hcl 5 Mg Tablet) 5 mg PO DAILY [facility] Last Admin: 01/12/24 08:56 Dose: 5 mg Metformin HCl (Metformin Hcl Er 750 Mg Tab.Er.24h) 750 mg PO BEDTIME [facility] Last Admin: 01/11/24 20:42 Dose: 750 mg Pt Own (Cyclosporine ([Restasis] 1 Drop)) 1 drop EYE-BOTH BID [facility] Last Admin: 01/12/24 08:56 Dose: 1 drop Olanzapine (Olanzapine 2.5 Mg Tablet) 2.5 mg PO Q4H PRN PRN Reason: agitation/acute psychosis Simethicone (Simethicone 80 Mg Tab.Chew) 80 mg PO QIDWMHS PRN PRN Reason: bloating Last Admin: 01/11/24 10:15 Dose: 80 mg Sitagliptin Phosphate (Sitagliptin Phosphate 100 Mg Tablet) 100 mg PO DAILY [facility] Last Admin: 01/12/24 08:56 Dose: 100 mg Trazodone HCl (Trazodone Hcl 50 Mg Tablet) 50 mg PO BEDTIME MRX1 PRN PRN Reason: Insomnia Vitamin D (Cholecalciferol (Vitamin D3) 25 Mcg Tablet) 25 mcg PO DAILY [facility] Last Admin: 01/12/24 08:56 Dose: 25 mcg Zolpidem Tartrate (Zolpidem Tartrate 5 Mg Tablet) 5 mg PO BEDTIME [facility] Last Admin: 01/11/24 20:42 Dose: 5 mg Allergies Allergies Allergy/AdvReac Type Severity Reaction Status Date / Time codeine Allergy Unknown Verified 12/07/23 20:27 Assessment & Plan Assessment & Plan (1) Dementia with psychotic disturbance: Status: Acute Code(s): F03.92 - Unspecified dementia, unspecified severity, with psychotic disturbance Plan Mrs. Jin is a 83 year-old woman with hx of vascular dementia with delusions of having an affair and some paranoid delusions. Some insight that this may not be the case but pt very much believes and takes action based on delusion despite here reporting that it may not be happening. It is unclear report from [facility] as to suicidal ideation. no indication of imminent harm to self or others, but collateral information is pending from family. May consider antipsychotic. PLAN 1. Restart Namenda. 2. Rexulti was started and increase it to 0.5 p.o. b.i.d. at this point. We are discontinued it on December 18 since the patient has refused to take it and there is no evidence of assaultive behavior. 3. Information of healthcare proxy. 4. Reassessment with results. 5. Waiting for placement Reason for continued inpatient stay Substantial Risk for: inability to function, rapid decompensation and med/psych decompensation Time Spent With Patient Time: Total time managing care of this patient today __20__ minutes.
[2024-01-12 19:58] LABS: Glucose, Whole Blood 193 mg/dL (60-115)
[2024-01-12 20:00] VITALS: BP 132/71; PULSE 78; RESP 18; TEMP 36.5; O2SAT 97
[2024-01-12] MEDS: Zolpidem Tartrate 5 MG TABLET PO (20:47)
[2024-01-12] MEDS: Simethicone 80 MG TAB.CHEW PO (20:48)
[2024-01-12] MEDS: Donepezil HCl 5 MG TABLET PO (20:48)
[2024-01-12] MEDS: metFORMIN HCl ER 750 MG TAB.ER.24H PO (20:48)
[2024-01-12] MEDS: Atorvastatin Calcium 10 MG TABLET PO (20:48)
[2024-01-13] MEDS: Levothyroxine Sodium 88 MCG TABLET PO (06:39)
[2024-01-13 06:58] LABS: Glucose, Whole Blood 128 mg/dL (60-115)
[2024-01-13 07:28] LABS: Creatinine Clr Calc Pharmacy 35.6; Estimated Glomerular Filt Rate 41
[2024-01-13 08:31] VITALS: BP 143/66; PULSE 65; RESP 18; TEMP 36.6; O2SAT 95
[2024-01-13 08:32] VITALS: BP 143/66
[2024-01-13] MEDS: Simethicone 80 MG TAB.CHEW PO ×2 (08:32→21:04)
[2024-01-13] MEDS: amLODIPine Besylate 2.5 MG TABLET PO (08:32)
[2024-01-13] MEDS: SITagliptin Phosphate 100 MG TABLET PO (08:32)
[2024-01-13] MEDS: Cholecalciferol (Vitamin D3) 25 MCG TABLET PO (08:32)
[2024-01-13] MEDS: Escitalopram Oxalate 10 MG TABLET PO (08:32)
[2024-01-13] MEDS: Acetaminophen 325 MG TABLET 650 MG PO (08:32)
[2024-01-13] MEDS: allopurinoL 100 MG TABLET PO (08:32)
[2024-01-13] MEDS: Memantine HCl 5 MG TABLET PO (08:32)
[2024-01-13] MEDS: CYCLOSPORINE 1 EACH EYE-BOTH ×2 (08:34→21:05)
--- NOTE | 2024-01-13 11:25 | P.PNPSI_ITS ---
Subjective Subjective Date of Service: 01/13/24 Reason For Visit: psychosis Subjective Notes: Section 7 and Conditional Voluntary Interim History: Patient was seen and discussed in rounds today. Records and plans were reviewed. She has been cooperative and compliant. Some delusions. Tearful at times. No behavioral problems. Awaiting placement. No changes were made today Review of Systems Review of Systems Yes all other systems are reviewed and are negative Mental Status Exam Mental Status Exam Patient Appearance: Well Grooomed and Appropriate Patient Orientation: Person and Situation Level of Consciousness: Awake and Appropriate Patient Behavior: Guarded and Passive Mood Description: Withdrawn Affect Description: Constricted Patient Cognition Impaired: Yes Ability to Follow Directions: Good Speech Pattern: Clear Hallucinations: None Delusions: Ideas of Reference Thought Process: Distracted and Slowed Thinking Thought Content: positive for [place] and positive for Poverty of Content Judgement: Poor Diagnostics Vital Signs (24Hr): Vital Signs - 24 hr 01/12/24 20:00 01/13/24 08:31 01/13/24 08:32 Temperature 97.7 F 97.8 F Pulse Rate 78 65 Respiratory Rate 18 18 Blood Pressure 132/71 143/66 H 143/66 H Pulse Oximetry 97 95 Oxygen Delivery Method Room Air Room Air BMI result Body Mass Index 30.5 Labs 01/06/24 07:28 01/13/24 07:07 Labs: Laboratory Results - last 48 hr 01/11/24 01/12/24 01/12/24 20:22 06:34 19:49 Creatinine Estim Creat Clear Calc Estimated GFR POC Glucose 158 H 91 193 H 01/13/24 01/13/24 06:38 07:07 Creatinine 1.25 Estim Creat Clear Calc 35.6 Estimated GFR 41 POC Glucose 128 H Medications Medications Current Medications Acetaminophen (Acetaminophen 325 Mg Tablet) 650 mg PO Q6H PRN PRN Reason: Headache/Pain Mild Scale (1-3) Last Admin: 01/13/24 08:32 Dose: 650 mg Al Hydroxide/Mg Hydroxide (Magnesium Hydrox/Alum Hydrox 30 Ml Oral.Susp) 30 ml PO Q6H PRN PRN Reason: Heartburn/Nausea Allopurinol (Allopurinol 100 Mg Tablet) 100 mg PO DAILY [facility] Last Admin: 01/13/24 08:32 Dose: 100 mg Amlodipine Besylate (Amlodipine Besylate 2.5 Mg Tablet) 2.5 mg PO DAILY [facility]; Protocol Last Admin: 01/13/24 08:32 Dose: 2.5 mg Artificial Tears (Artificial Tears 15 Ml Drops) 2 drop EYE-BOTH Q4H PRN PRN Reason: Dry Eyes Last Admin: 01/10/24 09:25 Dose: 2 drop Atorvastatin Calcium (Atorvastatin Calcium 10 Mg Tablet) 10 mg PO BEDTIME [facility] Last Admin: 01/12/24 20:48 Dose: 10 mg Cyclobenzaprine HCl (Cyclobenzaprine Hcl 5 Mg Tablet) 5 mg PO TID PRN PRN Reason: back spasm Last Admin: 12/24/23 20:29 Dose: 5 mg Diphenoxylate HCl/Atropine (Diphenoxylate/Atrop 2.5/0.025 Tablet) 1 tab PO DAILY PRN PRN Reason: Diarrhea Last Admin: 01/10/24 01:42 Dose: 1 tab Donepezil HCl (Donepezil Hcl 5 Mg Tablet) 5 mg PO BEDTIME [facility] Last Admin: 01/12/24 20:48 Dose: 5 mg Escitalopram Oxalate (Escitalopram Oxalate 10 Mg Tablet) 10 mg PO DAILY [facility] Last Admin: 01/13/24 08:32 Dose: 10 mg Levothyroxine Sodium (Levothyroxine Sodium 88 Mcg Tablet) 88 mcg PO DAILY@0600 [facility] Last Admin: 01/13/24 06:39 Dose: 88 mcg Lidocaine (Lidocaine 4 % Patch Adh..Patch) 2 patch TRANSDERMA DAILY [facility]; Protocol Last Admin: 01/13/24 08:35 Dose: Not Given Loperamide HCl (Loperamide Hcl 2 Mg Capsule) 2 mg PO Q4H PRN PRN Reason: Loose Stool Lorazepam (Lorazepam 0.5 Mg Tablet) 0.5 mg PO DAILY PRN PRN Reason: anxiety Last Admin: 01/10/24 09:26 Dose: 0.5 mg Magnesium Hydroxide (Milk Of Magnesia 30 Ml Oral.Susp) 30 ml PO DAILY PRN PRN Reason: Constipation Memantine (Memantine Hcl 5 Mg Tablet) 5 mg PO DAILY [facility] Last Admin: 01/13/24 08:32 Dose: 5 mg Metformin HCl (Metformin Hcl Er 750 Mg Tab.Er.24h) 750 mg PO BEDTIME [facility] Last Admin: 01/12/24 20:48 Dose: 750 mg Pt Own (Cyclosporine ([Restasis] 1 Drop)) 1 drop EYE-BOTH BID [facility] Last Admin: 01/13/24 08:34 Dose: 1 drop Olanzapine (Olanzapine 2.5 Mg Tablet) 2.5 mg PO Q4H PRN PRN Reason: agitation/acute psychosis Simethicone (Simethicone 80 Mg Tab.Chew) 80 mg PO QIDWMHS PRN PRN Reason: bloating Last Admin: 01/13/24 08:32 Dose: 80 mg Sitagliptin Phosphate (Sitagliptin Phosphate 100 Mg Tablet) 100 mg PO DAILY [facility] Last Admin: 01/13/24 08:32 Dose: 100 mg Trazodone HCl (Trazodone Hcl 50 Mg Tablet) 50 mg PO BEDTIME MRX1 PRN PRN Reason: Insomnia Vitamin D (Cholecalciferol (Vitamin D3) 25 Mcg Tablet) 25 mcg PO DAILY [facility] Last Admin: 01/13/24 08:32 Dose: 25 mcg Zolpidem Tartrate (Zolpidem Tartrate 5 Mg Tablet) 5 mg PO BEDTIME [facility] Last Admin: 01/12/24 20:47 Dose: 5 mg Allergies Allergies Allergy/AdvReac Type Severity Reaction Status Date / Time codeine Allergy Unknown Verified 12/07/23 20:27 Assessment & Plan Assessment & Plan (1) Dementia with psychotic disturbance: Status: Acute Code(s): F03.92 - Unspecified dementia, unspecified severity, with psychotic disturbance Plan Mrs. Jin is a 83 year-old woman with hx of vascular dementia with delusions of having an affair and some paranoid delusions. Some insight that this may not be the case but pt very much believes and takes action based on delusion despite here reporting that it may not be happening. It is unclear report from [facility] as to suicidal ideation. no indication of imminent harm to self or others, but collateral information is pending from family. May consider antipsychotic. PLAN 1. Restart Namenda. 2. Rexulti was started and increase it to 0.5 p.o. b.i.d. at this point. We are discontinued it on December 18 since the patient has refused to take it and there is no evidence of assaultive behavior. 3. Information of healthcare proxy. 4. Reassessment with results. 5. Waiting for placement 01/12: Continue current regimen and plans Reason for continued inpatient stay Substantial Risk for: inability to function and med/psych decompensation Time Spent With Patient Time: Total time managing care of this patient today ____ minutes.
[2024-01-13 19:51] LABS: Glucose, Whole Blood 154 mg/dL (60-115)
[2024-01-13 20:00] VITALS: BP 134/62; PULSE 70; RESP 16; TEMP 36.4; O2SAT 97
[2024-01-13] MEDS: metFORMIN HCl ER 750 MG TAB.ER.24H PO (21:04)
[2024-01-13] MEDS: Donepezil HCl 5 MG TABLET PO (21:04)
[2024-01-13] MEDS: Zolpidem Tartrate 5 MG TABLET PO (21:04)
[2024-01-13] MEDS: Atorvastatin Calcium 10 MG TABLET PO (21:04)
[2024-01-14] MEDS: Levothyroxine Sodium 88 MCG TABLET PO (06:36)
[2024-01-14 06:53] LABS: Glucose, Whole Blood 95 mg/dL (60-115)
[2024-01-14 07:51] VITALS: BP 124/62; PULSE 73; RESP 18; TEMP 36; O2SAT 96
[2024-01-14] MEDS: Escitalopram Oxalate 10 MG TABLET PO (08:27)
[2024-01-14] MEDS: amLODIPine Besylate 2.5 MG TABLET PO (08:27)
[2024-01-14] MEDS: Memantine HCl 5 MG TABLET PO (08:27)
[2024-01-14] MEDS: SITagliptin Phosphate 100 MG TABLET PO (08:27)
[2024-01-14] MEDS: Cholecalciferol (Vitamin D3) 25 MCG TABLET PO (08:28)
[2024-01-14] MEDS: Simethicone 80 MG TAB.CHEW PO (08:28)
[2024-01-14] MEDS: allopurinoL 100 MG TABLET PO (08:28)
[2024-01-14] MEDS: Acetaminophen 325 MG TABLET 650 MG PO (08:28)
[2024-01-14] MEDS: CYCLOSPORINE 1 EACH EYE-BOTH ×2 (08:30→20:57)
--- NOTE | 2024-01-14 08:34 | HO.PSYCHPN ---
Subjective Subjective Date of Service: 01/14/24 Reason For Visit: psychosis Subjective Notes: Section 7 and Conditional Voluntary Interim History: Patient was seen and discussed in rounds today. Records and plans were reviewed. She has been stable, is more cheerful and doing better. Eating and sleeping well. Compliant with medications with no complaints or side effects. No changes were made today Review of Systems Review of Systems Yes all other systems are reviewed and are negative Mental Status Exam Mental Status Exam Patient Appearance: Well Grooomed and Appropriate Patient Orientation: Person and Situation Level of Consciousness: Awake and Appropriate Patient Behavior: Guarded and Passive Mood Description: Withdrawn Affect Description: Constricted Patient Cognition Impaired: Yes Ability to Follow Directions: Good Speech Pattern: Clear Hallucinations: None Delusions: Ideas of Reference Thought Process: Distracted and Slowed Thinking Thought Content: positive for [place] and positive for Poverty of Content Judgement: Poor Diagnostics Vital Signs (24Hr): Vital Signs - 24 hr 01/13/24 20:00 01/14/24 07:51 Temperature 97.6 F 96.8 F Pulse Rate 70 73 Respiratory Rate 16 18 Blood Pressure 134/62 124/62 Pulse Oximetry 97 96 Oxygen Delivery Method Room Air Room Air BMI result Body Mass Index 30.5 Labs 01/06/24 07:28 01/13/24 07:07 Labs: Laboratory Results - last 48 hr 01/12/24 01/13/24 01/13/24 19:49 06:38 07:07 Creatinine 1.25 Estim Creat Clear Calc 35.6 Estimated GFR 41 POC Glucose 193 H 128 H 01/13/24 01/14/24 19:41 06:38 Creatinine Estim Creat Clear Calc Estimated GFR POC Glucose 154 H 95 Medications Medications Current Medications Acetaminophen (Acetaminophen 325 Mg Tablet) 650 mg PO Q6H PRN PRN Reason: Headache/Pain Mild Scale (1-3) Last Admin: 01/14/24 08:28 Dose: 650 mg Al Hydroxide/Mg Hydroxide (Magnesium Hydrox/Alum Hydrox 30 Ml Oral.Susp) 30 ml PO Q6H PRN PRN Reason: Heartburn/Nausea Allopurinol (Allopurinol 100 Mg Tablet) 100 mg PO DAILY [facility] Last Admin: 01/14/24 08:28 Dose: 100 mg Amlodipine Besylate (Amlodipine Besylate 2.5 Mg Tablet) 2.5 mg PO DAILY [facility]; Protocol Last Admin: 01/14/24 08:27 Dose: 2.5 mg Artificial Tears (Artificial Tears 15 Ml Drops) 2 drop EYE-BOTH Q4H PRN PRN Reason: Dry Eyes Last Admin: 01/10/24 09:25 Dose: 2 drop Atorvastatin Calcium (Atorvastatin Calcium 10 Mg Tablet) 10 mg PO BEDTIME [facility] Last Admin: 01/13/24 21:04 Dose: 10 mg Cyclobenzaprine HCl (Cyclobenzaprine Hcl 5 Mg Tablet) 5 mg PO TID PRN PRN Reason: back spasm Last Admin: 12/24/23 20:29 Dose: 5 mg Diphenoxylate HCl/Atropine (Diphenoxylate/Atrop 2.5/0.025 Tablet) 1 tab PO DAILY PRN PRN Reason: Diarrhea Last Admin: 01/10/24 01:42 Dose: 1 tab Donepezil HCl (Donepezil Hcl 5 Mg Tablet) 5 mg PO BEDTIME [facility] Last Admin: 01/13/24 21:04 Dose: 5 mg Escitalopram Oxalate (Escitalopram Oxalate 10 Mg Tablet) 10 mg PO DAILY [facility] Last Admin: 01/14/24 08:27 Dose: 10 mg Levothyroxine Sodium (Levothyroxine Sodium 88 Mcg Tablet) 88 mcg PO DAILY@0600 [facility] Last Admin: 01/14/24 06:36 Dose: 88 mcg Lidocaine (Lidocaine 4 % Patch Adh..Patch) 2 patch TRANSDERMA DAILY [facility]; Protocol Last Admin: 01/13/24 08:35 Dose: Not Given Loperamide HCl (Loperamide Hcl 2 Mg Capsule) 2 mg PO Q4H PRN PRN Reason: Loose Stool Lorazepam (Lorazepam 0.5 Mg Tablet) 0.5 mg PO DAILY PRN PRN Reason: anxiety Last Admin: 01/10/24 09:26 Dose: 0.5 mg Magnesium Hydroxide (Milk Of Magnesia 30 Ml Oral.Susp) 30 ml PO DAILY PRN PRN Reason: Constipation Memantine (Memantine Hcl 5 Mg Tablet) 5 mg PO DAILY [facility] Last Admin: 01/14/24 08:27 Dose: 5 mg Metformin HCl (Metformin Hcl Er 750 Mg Tab.Er.24h) 750 mg PO BEDTIME [facility] Last Admin: 01/13/24 21:04 Dose: 750 mg Pt Own (Cyclosporine ([Restasis] 1 Drop)) 1 drop EYE-BOTH BID [facility] Last Admin: 01/14/24 08:30 Dose: 1 drop Olanzapine (Olanzapine 2.5 Mg Tablet) 2.5 mg PO Q4H PRN PRN Reason: agitation/acute psychosis Simethicone (Simethicone 80 Mg Tab.Chew) 80 mg PO QIDWMHS PRN PRN Reason: bloating Last Admin: 01/14/24 08:28 Dose: 80 mg Sitagliptin Phosphate (Sitagliptin Phosphate 100 Mg Tablet) 100 mg PO DAILY [facility] Last Admin: 01/14/24 08:27 Dose: 100 mg Trazodone HCl (Trazodone Hcl 50 Mg Tablet) 50 mg PO BEDTIME MRX1 PRN PRN Reason: Insomnia Vitamin D (Cholecalciferol (Vitamin D3) 25 Mcg Tablet) 25 mcg PO DAILY [facility] Last Admin: 01/14/24 08:28 Dose: 25 mcg Zolpidem Tartrate (Zolpidem Tartrate 5 Mg Tablet) 5 mg PO BEDTIME [facility] Last Admin: 01/13/24 21:04 Dose: 5 mg Allergies Allergies Allergy/AdvReac Type Severity Reaction Status Date / Time codeine Allergy Unknown Verified 12/07/23 20:27 Assessment & Plan Assessment & Plan (1) Dementia with psychotic disturbance: Status: Acute Code(s): F03.92 - Unspecified dementia, unspecified severity, with psychotic disturbance Plan Mrs. Jin is a 83 year-old woman with hx of vascular dementia with delusions of having an affair and some paranoid delusions. Some insight that this may not be the case but pt very much believes and takes action based on delusion despite here reporting that it may not be happening. It is unclear report from [facility] as to suicidal ideation. no indication of imminent harm to self or others, but collateral information is pending from family. May consider antipsychotic. PLAN 1. Restart Namenda. 2. Rexulti was started and increase it to 0.5 p.o. b.i.d. at this point. We are discontinued it on December 18 since the patient has refused to take it and there is no evidence of assaultive behavior. 3. Information of healthcare proxy. 4. Reassessment with results. 5. Waiting for placement 01/12: Continue current regimen and plans 01/13: Continue current regimen and plans Reason for continued inpatient stay Substantial Risk for: inability to function and med/psych decompensation Time Spent With Patient Time: Total time managing care of this patient today ____ minutes.
[2024-01-14 20:00] VITALS: BP 143/65; PULSE 69; RESP 16; TEMP 36.4; O2SAT 98
[2024-01-14] MEDS: metFORMIN HCl ER 750 MG TAB.ER.24H PO (20:10)
[2024-01-14] MEDS: Zolpidem Tartrate 5 MG TABLET PO (20:11)
[2024-01-14] MEDS: Atorvastatin Calcium 10 MG TABLET PO (20:11)
[2024-01-14] MEDS: Donepezil HCl 5 MG TABLET PO (20:11)
[2024-01-14 20:50] LABS: Glucose, Whole Blood 169 mg/dL (60-115)
[2024-01-15] MEDS: Levothyroxine Sodium 88 MCG TABLET PO (05:54)
[2024-01-15 06:04] LABS: Glucose, Whole Blood 97 mg/dL (60-115)
[2024-01-15 08:00] VITALS: BP 144/63; PULSE 64; RESP 18; TEMP 36.8; O2SAT 96
[2024-01-15] MEDS: Acetaminophen 325 MG TABLET 650 MG PO (08:11)
[2024-01-15] MEDS: CYCLOSPORINE 1 EACH EYE-BOTH ×2 (08:11→19:41)
[2024-01-15] MEDS: Cholecalciferol (Vitamin D3) 25 MCG TABLET PO (08:12)
[2024-01-15] MEDS: allopurinoL 100 MG TABLET PO (08:12)
[2024-01-15] MEDS: Escitalopram Oxalate 10 MG TABLET PO (08:12)
[2024-01-15] MEDS: Memantine HCl 5 MG TABLET PO (08:12)
[2024-01-15] MEDS: amLODIPine Besylate 2.5 MG TABLET PO (08:12)
[2024-01-15] MEDS: Simethicone 80 MG TAB.CHEW PO (08:12)
[2024-01-15] MEDS: SITagliptin Phosphate 100 MG TABLET PO (08:13)
--- NOTE | 2024-01-15 14:00 | HO.PSYCHPN ---
Subjective Subjective Date of Service: 01/15/24 Reason For Visit: psychosis Subjective Notes: Conditional Voluntary Interim History: The nursing staff reported the patient had been fully compliant with treatment, she slept 6 hours. The bilingual social worker reported that she has done the application for [facility] waiting. The family was contact last Monday and they were surprised by the expansive cost of having her long-term care. On interview the patient denies new symptoms she spends most of the day in her room. No changes in her mental status. Mental Status Exam Mental Status Exam Patient Appearance: Appropriate Patient Orientation: Person and Situation Level of Consciousness: Awake and Appropriate Patient Behavior: Guarded and Passive Mood Description: Withdrawn Affect Description: Constricted Patient Cognition Impaired: Yes Ability to Follow Directions: Good Speech Pattern: Clear Hallucinations: None Delusions: Not Present Thought Process: Distracted and Slowed Thinking Thought Content: positive for [place] and positive for Poverty of Content Judgement: Fair Diagnostics Vital Signs (24Hr): Vital Signs - 24 hr 01/14/24 20:00 01/15/24 08:00 Temperature 97.5 F 98.2 F Pulse Rate 69 64 Respiratory Rate 16 18 Blood Pressure 143/65 H 144/63 H Pulse Oximetry 98 96 Oxygen Delivery Method Room Air Room Air BMI result Body Mass Index 30.5 Labs 01/06/24 07:28 01/13/24 07:07 Labs: Laboratory Results - last 48 hr 01/13/24 01/14/24 01/14/24 19:41 06:38 20:39 POC Glucose 154 H 95 169 H 01/15/24 05:58 POC Glucose 97 Medications Medications Current Medications Acetaminophen (Acetaminophen 325 Mg Tablet) 650 mg PO Q6H PRN PRN Reason: Headache/Pain Mild Scale (1-3) Last Admin: 01/15/24 08:11 Dose: 650 mg Al Hydroxide/Mg Hydroxide (Magnesium Hydrox/Alum Hydrox 30 Ml Oral.Susp) 30 ml PO Q6H PRN PRN Reason: Heartburn/Nausea Allopurinol (Allopurinol 100 Mg Tablet) 100 mg PO DAILY [facility] Last Admin: 01/15/24 08:12 Dose: 100 mg Amlodipine Besylate (Amlodipine Besylate 2.5 Mg Tablet) 2.5 mg PO DAILY [facility]; Protocol Last Admin: 01/15/24 08:12 Dose: 2.5 mg Artificial Tears (Artificial Tears 15 Ml Drops) 2 drop EYE-BOTH Q4H PRN PRN Reason: Dry Eyes Last Admin: 01/10/24 09:25 Dose: 2 drop Atorvastatin Calcium (Atorvastatin Calcium 10 Mg Tablet) 10 mg PO BEDTIME [facility] Last Admin: 01/14/24 20:11 Dose: 10 mg Cyclobenzaprine HCl (Cyclobenzaprine Hcl 5 Mg Tablet) 5 mg PO TID PRN PRN Reason: back spasm Last Admin: 12/24/23 20:29 Dose: 5 mg Diphenoxylate HCl/Atropine (Diphenoxylate/Atrop 2.5/0.025 Tablet) 1 tab PO DAILY PRN PRN Reason: Diarrhea Last Admin: 01/10/24 01:42 Dose: 1 tab Donepezil HCl (Donepezil Hcl 5 Mg Tablet) 5 mg PO BEDTIME [facility] Last Admin: 01/14/24 20:11 Dose: 5 mg Escitalopram Oxalate (Escitalopram Oxalate 10 Mg Tablet) 10 mg PO DAILY [facility] Last Admin: 01/15/24 08:12 Dose: 10 mg Levothyroxine Sodium (Levothyroxine Sodium 88 Mcg Tablet) 88 mcg PO DAILY@0600 [facility] Last Admin: 01/15/24 05:54 Dose: 88 mcg Lidocaine (Lidocaine 4 % Patch Adh..Patch) 2 patch TRANSDERMA DAILY [facility]; Protocol Last Admin: 01/15/24 08:13 Dose: Not Given Loperamide HCl (Loperamide Hcl 2 Mg Capsule) 2 mg PO Q4H PRN PRN Reason: Loose Stool Lorazepam (Lorazepam 0.5 Mg Tablet) 0.5 mg PO DAILY PRN PRN Reason: anxiety Last Admin: 01/10/24 09:26 Dose: 0.5 mg Magnesium Hydroxide (Milk Of Magnesia 30 Ml Oral.Susp) 30 ml PO DAILY PRN PRN Reason: Constipation Memantine (Memantine Hcl 5 Mg Tablet) 5 mg PO DAILY [facility] Last Admin: 01/15/24 08:12 Dose: 5 mg Metformin HCl (Metformin Hcl Er 750 Mg Tab.Er.24h) 750 mg PO BEDTIME [facility] Last Admin: 01/14/24 20:10 Dose: 750 mg Pt Own (Cyclosporine ([Restasis] 1 Drop)) 1 drop EYE-BOTH BID [facility] Last Admin: 01/15/24 08:11 Dose: 1 drop Olanzapine (Olanzapine 2.5 Mg Tablet) 2.5 mg PO Q4H PRN PRN Reason: agitation/acute psychosis Simethicone (Simethicone 80 Mg Tab.Chew) 80 mg PO QIDWMHS PRN PRN Reason: bloating Last Admin: 01/15/24 08:12 Dose: 80 mg Sitagliptin Phosphate (Sitagliptin Phosphate 100 Mg Tablet) 100 mg PO DAILY [facility] Last Admin: 01/15/24 08:13 Dose: 100 mg Trazodone HCl (Trazodone Hcl 50 Mg Tablet) 50 mg PO BEDTIME [facility] PRN PRN Reason: Insomnia Vitamin D (Cholecalciferol (Vitamin D3) 25 Mcg Tablet) 25 mcg PO DAILY [facility] Last Admin: 01/15/24 08:12 Dose: 25 mcg Zolpidem Tartrate (Zolpidem Tartrate 5 Mg Tablet) 5 mg PO BEDTIME [facility] Last Admin: 01/14/24 20:11 Dose: 5 mg Allergies Allergies Allergy/AdvReac Type Severity Reaction Status Date / Time codeine Allergy Unknown Verified 12/07/23 20:27 Assessment & Plan Assessment & Plan (1) Dementia with psychotic disturbance: Status: Acute Code(s): F03.92 - Unspecified dementia, unspecified severity, with psychotic disturbance Plan Mrs. Jin is a 83 year-old woman with hx of vascular dementia with delusions of having an affair and some paranoid delusions. Some insight that this may not be the case but pt very much believes and takes action based on delusion despite here reporting that it may not be happening. It is unclear report from [facility] as to suicidal ideation. no indication of imminent harm to self or others, but collateral information is pending from family. May consider antipsychotic. PLAN 1. Restart Namenda. 2. Rexulti was started and increase it to 0.5 p.o. b.i.d. at this point. We are discontinued it on December 18 since the patient has refused to take it and there is no evidence of assaultive behavior. 3. Information of healthcare proxy. 4. Reassessment with results. 5. Waiting for placement Reason for continued inpatient stay Substantial Risk for: inability to function, rapid decompensation and med/psych decompensation Time Spent With Patient Time: Total time managing care of this patient today __20__ minutes.
[2024-01-15 19:38] VITALS: BP 148/67; PULSE 78; RESP 16; TEMP 36.1; O2SAT 99
[2024-01-15] MEDS: Atorvastatin Calcium 10 MG TABLET PO (19:41)
[2024-01-15] MEDS: metFORMIN HCl ER 750 MG TAB.ER.24H PO (19:41)
[2024-01-15] MEDS: Donepezil HCl 5 MG TABLET PO (19:41)
[2024-01-15] MEDS: Zolpidem Tartrate 5 MG TABLET PO (19:42)
[2024-01-15 20:36] LABS: Glucose, Whole Blood 199 mg/dL (60-115)
[2024-01-16] MEDS: Levothyroxine Sodium 88 MCG TABLET PO (05:46)
[2024-01-16 06:37] LABS: Glucose, Whole Blood 101 mg/dL (60-115)
[2024-01-16 08:00] VITALS: BP 172/78; PULSE 62; RESP 18; TEMP 36.6; O2SAT 99
[2024-01-16] MEDS: Memantine HCl 5 MG TABLET PO (08:10)
[2024-01-16] MEDS: amLODIPine Besylate 2.5 MG TABLET PO (08:10)
[2024-01-16] MEDS: CYCLOSPORINE 1 EACH EYE-BOTH ×2 (08:10→19:34)
[2024-01-16] MEDS: SITagliptin Phosphate 100 MG TABLET PO (08:10)
[2024-01-16] MEDS: Cholecalciferol (Vitamin D3) 25 MCG TABLET PO (08:10)
[2024-01-16] MEDS: allopurinoL 100 MG TABLET PO (08:10)
[2024-01-16] MEDS: Escitalopram Oxalate 10 MG TABLET PO (08:10)
[2024-01-16] MEDS: Acetaminophen 325 MG TABLET 650 MG PO (08:20)
[2024-01-16] MEDS: Simethicone 80 MG TAB.CHEW PO ×2 (08:21→22:13)
--- NOTE | 2024-01-16 11:58 | P.PNPSI_ITS ---
Subjective Subjective Date of Service: 01/16/24 Reason For Visit: psychosis Subjective Notes: Conditional Voluntary Interim History: The nursing staff reported to have been pleasant, social slept 6 hours. The social service director reported that the [facility] application was started and we are waiting for financial clearance. On interview the patient denies new symptoms, waiting for placement. Mental Status Exam Mental Status Exam Patient Appearance: Appropriate Patient Orientation: Person and Situation Level of Consciousness: Awake and Appropriate Patient Behavior: Appropriate and Cooperative Mood Description: Calm Affect Description: Constricted Patient Cognition Impaired: Yes Ability to Follow Directions: Good Speech Pattern: Clear Hallucinations: None Delusions: Ideas of Reference Thought Process: Distracted and Slowed Thinking Thought Content: positive for [place] Judgement: Fair Diagnostics Vital Signs (24Hr): Vital Signs - 24 hr 01/15/24 19:38 01/16/24 08:00 Temperature 96.9 F 97.9 F Pulse Rate 78 62 Respiratory Rate 16 18 Blood Pressure 148/67 H 172/78 H Pulse Oximetry 99 99 Oxygen Delivery Method Room Air Room Air BMI result Body Mass Index 30.5 Labs 01/06/24 07:28 01/13/24 07:07 Labs: Laboratory Results - last 48 hr 01/14/24 01/15/24 01/15/24 20:39 05:58 20:20 POC Glucose 169 H 97 199 H 01/16/24 06:13 POC Glucose 101 Medications Medications Current Medications Acetaminophen (Acetaminophen 325 Mg Tablet) 650 mg PO Q6H PRN PRN Reason: Headache/Pain Mild Scale (1-3) Last Admin: 01/16/24 08:20 Dose: 650 mg Al Hydroxide/Mg Hydroxide (Magnesium Hydrox/Alum Hydrox 30 Ml Oral.Susp) 30 ml PO Q6H PRN PRN Reason: Heartburn/Nausea Allopurinol (Allopurinol 100 Mg Tablet) 100 mg PO DAILY [facility] Last Admin: 01/16/24 08:10 Dose: 100 mg Amlodipine Besylate (Amlodipine Besylate 2.5 Mg Tablet) 2.5 mg PO DAILY [facility]; Protocol Last Admin: 01/16/24 08:10 Dose: 2.5 mg Artificial Tears (Artificial Tears 15 Ml Drops) 2 drop EYE-BOTH Q4H PRN PRN Reason: Dry Eyes Last Admin: 01/10/24 09:25 Dose: 2 drop Atorvastatin Calcium (Atorvastatin Calcium 10 Mg Tablet) 10 mg PO BEDTIME [facility] Last Admin: 01/15/24 19:41 Dose: 10 mg Cyclobenzaprine HCl (Cyclobenzaprine Hcl 5 Mg Tablet) 5 mg PO TID PRN PRN Reason: back spasm Last Admin: 12/24/23 20:29 Dose: 5 mg Diphenoxylate HCl/Atropine (Diphenoxylate/Atrop 2.5/0.025 Tablet) 1 tab PO DAILY PRN PRN Reason: Diarrhea Last Admin: 01/10/24 01:42 Dose: 1 tab Donepezil HCl (Donepezil Hcl 5 Mg Tablet) 5 mg PO BEDTIME [facility] Last Admin: 01/15/24 19:41 Dose: 5 mg Escitalopram Oxalate (Escitalopram Oxalate 10 Mg Tablet) 10 mg PO DAILY [facility] Last Admin: 01/16/24 08:10 Dose: 10 mg Levothyroxine Sodium (Levothyroxine Sodium 88 Mcg Tablet) 88 mcg PO DAILY@0600 [facility] Last Admin: 01/16/24 05:46 Dose: 88 mcg Lidocaine (Lidocaine 4 % Patch Adh..Patch) 2 patch TRANSDERMA DAILY [facility]; Protocol Last Admin: 01/16/24 08:10 Dose: Not Given Loperamide HCl (Loperamide Hcl 2 Mg Capsule) 2 mg PO Q4H PRN PRN Reason: Loose Stool Lorazepam (Lorazepam 0.5 Mg Tablet) 0.5 mg PO DAILY PRN PRN Reason: anxiety Last Admin: 01/10/24 09:26 Dose: 0.5 mg Magnesium Hydroxide (Milk Of Magnesia 30 Ml Oral.Susp) 30 ml PO DAILY PRN PRN Reason: Constipation Memantine (Memantine Hcl 5 Mg Tablet) 5 mg PO DAILY [facility] Last Admin: 01/16/24 08:10 Dose: 5 mg Metformin HCl (Metformin Hcl Er 750 Mg Tab.Er.24h) 750 mg PO BEDTIME [facility] Last Admin: 01/15/24 19:41 Dose: 750 mg Pt Own (Cyclosporine ([Restasis] 1 Drop)) 1 drop EYE-BOTH BID [facility] Last Admin: 01/16/24 08:10 Dose: 1 drop Olanzapine (Olanzapine 2.5 Mg Tablet) 2.5 mg PO Q4H PRN PRN Reason: agitation/acute psychosis Simethicone (Simethicone 80 Mg Tab.Chew) 80 mg PO QIDWMHS PRN PRN Reason: bloating Last Admin: 01/16/24 08:21 Dose: 80 mg Sitagliptin Phosphate (Sitagliptin Phosphate 100 Mg Tablet) 100 mg PO DAILY [facility] Last Admin: 01/16/24 08:10 Dose: 100 mg Trazodone HCl (Trazodone Hcl 50 Mg Tablet) 50 mg PO BEDTIME [facility]X1 PRN PRN Reason: Insomnia Vitamin D (Cholecalciferol (Vitamin D3) 25 Mcg Tablet) 25 mcg PO DAILY [facility] Last Admin: 01/16/24 08:10 Dose: 25 mcg Zolpidem Tartrate (Zolpidem Tartrate 5 Mg Tablet) 5 mg PO BEDTIME [facility] Last Admin: 01/15/24 19:42 Dose: 5 mg Allergies Allergies Allergy/AdvReac Type Severity Reaction Status Date / Time codeine Allergy Unknown Verified 12/07/23 20:27 Assessment & Plan Assessment & Plan (1) Dementia with psychotic disturbance: Status: Acute Code(s): F03.92 - Unspecified dementia, unspecified severity, with psychotic disturbance Plan Mrs. Jin is a 83 year-old woman with hx of vascular dementia with delusions of having an affair and some paranoid delusions. Some insight that this may not be the case but pt very much believes and takes action based on delusion despite here reporting that it may not be happening. It is unclear report from [facility] as to suicidal ideation. no indication of imminent harm to self or others, but collateral information is pending from family. May consider antipsychotic. PLAN 1. Restart Namenda. 2. Rexulti was started and increase it to 0.5 p.o. b.i.d. at this point. We are discontinued it on December 18 since the patient has refused to take it and there is no evidence of assaultive behavior. 3. Information of healthcare proxy. 4. Reassessment with results. 5. Waiting for placement Reason for continued inpatient stay Substantial Risk for: inability to function, rapid decompensation and med/psych decompensation Time Spent With Patient Time: Total time managing care of this patient today __20__ minutes.
[2024-01-16] MEDS: metFORMIN HCl ER 750 MG TAB.ER.24H PO (19:35)
[2024-01-16] MEDS: Donepezil HCl 5 MG TABLET PO (19:35)
[2024-01-16] MEDS: Atorvastatin Calcium 10 MG TABLET PO (19:35)
[2024-01-16] MEDS: Zolpidem Tartrate 5 MG TABLET PO (19:35)
[2024-01-16 19:57] LABS: Glucose, Whole Blood 172 mg/dL (60-115)
[2024-01-16 20:07] VITALS: BP 193/72; PULSE 67; RESP 18; TEMP 36.9; O2SAT 98
[2024-01-16 22:24] VITALS: BP 124/60; PULSE 62
[2024-01-17] MEDS: Levothyroxine Sodium 88 MCG TABLET PO (05:40)
[2024-01-17 06:40] LABS: Glucose, Whole Blood 102 mg/dL (60-115)
[2024-01-17 08:05] VITALS: BP 122/72; PULSE 70; RESP 18; TEMP 36.8; O2SAT 98
[2024-01-17] MEDS: Cholecalciferol (Vitamin D3) 25 MCG TABLET PO (08:53)
[2024-01-17] MEDS: Acetaminophen 325 MG TABLET 650 MG PO ×2 (08:53→20:04)
[2024-01-17] MEDS: Simethicone 80 MG TAB.CHEW PO ×2 (08:53→20:03)
[2024-01-17] MEDS: amLODIPine Besylate 2.5 MG TABLET PO (08:53)
[2024-01-17] MEDS: Memantine HCl 5 MG TABLET PO (08:53)
[2024-01-17] MEDS: SITagliptin Phosphate 100 MG TABLET PO (08:53)
[2024-01-17] MEDS: Escitalopram Oxalate 10 MG TABLET PO (08:53)
[2024-01-17] MEDS: CYCLOSPORINE 1 EACH EYE-BOTH ×2 (08:54→20:04)
[2024-01-17] MEDS: allopurinoL 100 MG TABLET PO (08:54)
--- NOTE | 2024-01-17 15:55 | P.PNPSI_ITS ---
Subjective Subjective Date of Service: 01/17/24 Reason For Visit: psychosis Subjective Notes: Conditional Voluntary Interim History: The nursing staff reported the patient has been pleasant cooperative compliant with treatment. No changes in her mental status. The vp digital marketing social media and crm reported that her [facility] application still in process. On interview the patient denies new symptoms, waiting for placement. Mental Status Exam Mental Status Exam Patient Appearance: Appropriate Patient Orientation: Person and Situation Level of Consciousness: Awake and Appropriate Patient Behavior: Guarded and Passive Mood Description: Withdrawn Affect Description: Constricted Patient Cognition Impaired: Yes Ability to Follow Directions: Good Speech Pattern: Clear Hallucinations: None Delusions: Not Present Thought Process: Distracted and Slowed Thinking Thought Content: positive for [place] and positive for Poverty of Content Judgement: Fair Diagnostics Vital Signs (24Hr): Vital Signs - 24 hr 01/16/24 20:07 01/16/24 22:24 01/17/24 08:05 Temperature 98.4 F 98.2 F Pulse Rate 67 62 70 Respiratory Rate 18 18 Blood Pressure 193/72 H 124/60 122/72 Pulse Oximetry 98 98 Oxygen Delivery Method Room Air Room Air BMI result Body Mass Index 30.5 Labs 01/06/24 07:28 01/13/24 07:07 Labs: Laboratory Results - last 48 hr 01/15/24 01/16/24 01/16/24 20:20 06:13 19:33 POC Glucose 199 H 101 172 H 01/17/24 06:21 POC Glucose 102 Medications Medications Current Medications Acetaminophen (Acetaminophen 325 Mg Tablet) 650 mg PO Q6H PRN PRN Reason: Headache/Pain Mild Scale (1-3) Last Admin: 01/17/24 08:53 Dose: 650 mg Al Hydroxide/Mg Hydroxide (Magnesium Hydrox/Alum Hydrox 30 Ml Oral.Susp) 30 ml PO Q6H PRN PRN Reason: Heartburn/Nausea Allopurinol (Allopurinol 100 Mg Tablet) 100 mg PO DAILY [facility] Last Admin: 01/17/24 08:54 Dose: 100 mg Amlodipine Besylate (Amlodipine Besylate 2.5 Mg Tablet) 2.5 mg PO DAILY [facility]; Protocol Last Admin: 01/17/24 08:53 Dose: 2.5 mg Artificial Tears (Artificial Tears 15 Ml Drops) 2 drop EYE-BOTH Q4H PRN PRN Reason: Dry Eyes Last Admin: 01/10/24 09:25 Dose: 2 drop Atorvastatin Calcium (Atorvastatin Calcium 10 Mg Tablet) 10 mg PO BEDTIME [facility] Last Admin: 01/16/24 19:35 Dose: 10 mg Cyclobenzaprine HCl (Cyclobenzaprine Hcl 5 Mg Tablet) 5 mg PO TID PRN PRN Reason: back spasm Last Admin: 12/24/23 20:29 Dose: 5 mg Diphenoxylate HCl/Atropine (Diphenoxylate/Atrop 2.5/0.025 Tablet) 1 tab PO DAILY PRN PRN Reason: Diarrhea Last Admin: 01/10/24 01:42 Dose: 1 tab Donepezil HCl (Donepezil Hcl 5 Mg Tablet) 5 mg PO BEDTIME [facility] Last Admin: 01/16/24 19:35 Dose: 5 mg Escitalopram Oxalate (Escitalopram Oxalate 10 Mg Tablet) 10 mg PO DAILY [facility] Last Admin: 01/17/24 08:53 Dose: 10 mg Levothyroxine Sodium (Levothyroxine Sodium 88 Mcg Tablet) 88 mcg PO DAILY@0600 [facility] Last Admin: 01/17/24 05:40 Dose: 88 mcg Lidocaine (Lidocaine 4 % Patch Adh..Patch) 2 patch TRANSDERMA DAILY [facility]; Protocol Last Admin: 01/17/24 08:59 Dose: Not Given Loperamide HCl (Loperamide Hcl 2 Mg Capsule) 2 mg PO Q4H PRN PRN Reason: Loose Stool Lorazepam (Lorazepam 0.5 Mg Tablet) 0.5 mg PO DAILY PRN PRN Reason: anxiety Last Admin: 01/10/24 09:26 Dose: 0.5 mg Magnesium Hydroxide (Milk Of Magnesia 30 Ml Oral.Susp) 30 ml PO DAILY PRN PRN Reason: Constipation Memantine (Memantine Hcl 5 Mg Tablet) 5 mg PO DAILY [facility] Last Admin: 01/17/24 08:53 Dose: 5 mg Metformin HCl (Metformin Hcl Er 750 Mg Tab.Er.24h) 750 mg PO BEDTIME [facility] Last Admin: 01/16/24 19:35 Dose: 750 mg Pt Own (Cyclosporine ([Restasis] 1 Drop)) 1 drop EYE-BOTH BID [facility] Last Admin: 01/17/24 08:54 Dose: 1 drop Olanzapine (Olanzapine 2.5 Mg Tablet) 2.5 mg PO Q4H PRN PRN Reason: agitation/acute psychosis Simethicone (Simethicone 80 Mg Tab.Chew) 80 mg PO QIDWMHS PRN PRN Reason: bloating Last Admin: 01/17/24 08:53 Dose: 80 mg Sitagliptin Phosphate (Sitagliptin Phosphate 100 Mg Tablet) 100 mg PO DAILY [facility] Last Admin: 01/17/24 08:53 Dose: 100 mg Trazodone HCl (Trazodone Hcl 50 Mg Tablet) 50 mg PO BEDTIME MRX1 PRN PRN Reason: Insomnia Vitamin D (Cholecalciferol (Vitamin D3) 25 Mcg Tablet) 25 mcg PO DAILY [facility] Last Admin: 01/17/24 08:53 Dose: 25 mcg Zolpidem Tartrate (Zolpidem Tartrate 5 Mg Tablet) 5 mg PO BEDTIME [facility] Last Admin: 01/16/24 19:35 Dose: 5 mg Allergies Allergies Allergy/AdvReac Type Severity Reaction Status Date / Time codeine Allergy Unknown Verified 12/07/23 20:27 Assessment & Plan Assessment & Plan (1) Dementia with psychotic disturbance: Status: Acute Code(s): F03.92 - Unspecified dementia, unspecified severity, with psychotic disturbance Plan Mrs. Jin is a 83 year-old woman with hx of vascular dementia with delusions of having an affair and some paranoid delusions. Some insight that this may not be the case but pt very much believes and takes action based on delusion despite here reporting that it may not be happening. It is unclear report from [facility] as to suicidal ideation. no indication of imminent harm to self or others, but collateral information is pending from family. May consider antipsychotic. PLAN 1. Restart Namenda. 2. Rexulti was started and increase it to 0.5 p.o. b.i.d. at this point. We are discontinued it on December 18 since the patient has refused to take it and there is no evidence of assaultive behavior. 3. Information of healthcare proxy. 4. Reassessment with results. 5. Waiting for placement Reason for continued inpatient stay Substantial Risk for: inability to function, rapid decompensation and med/psych decompensation Time Spent With Patient Time: Total time managing care of this patient today __20__ minutes.
[2024-01-17 19:44] LABS: Glucose, Whole Blood 181 mg/dL (60-115)
[2024-01-17 20:00] VITALS: BP 144/66; PULSE 78; RESP 18; TEMP 36.4; O2SAT 97
[2024-01-17] MEDS: Atorvastatin Calcium 10 MG TABLET PO (20:03)
[2024-01-17] MEDS: Donepezil HCl 5 MG TABLET PO (20:03)
[2024-01-17] MEDS: metFORMIN HCl ER 750 MG TAB.ER.24H PO (20:03)
[2024-01-17] MEDS: Zolpidem Tartrate 5 MG TABLET PO (20:04)
[2024-01-18] MEDS: Levothyroxine Sodium 88 MCG TABLET PO (06:41)
[2024-01-18 07:02] LABS: Glucose, Whole Blood 110 mg/dL (60-115)
[2024-01-18 08:00] VITALS: BP 146/63; PULSE 60; RESP 18; TEMP 36; O2SAT 100
[2024-01-18] MEDS: amLODIPine Besylate 2.5 MG TABLET PO (09:01)
[2024-01-18] MEDS: allopurinoL 100 MG TABLET PO (09:01)
[2024-01-18] MEDS: SITagliptin Phosphate 100 MG TABLET PO (09:01)
[2024-01-18] MEDS: Cholecalciferol (Vitamin D3) 25 MCG TABLET PO (09:01)
[2024-01-18] MEDS: Memantine HCl 5 MG TABLET PO (09:01)
[2024-01-18] MEDS: Escitalopram Oxalate 10 MG TABLET PO (09:01)
[2024-01-18] MEDS: Acetaminophen 325 MG TABLET 650 MG PO ×2 (10:12→20:51)
[2024-01-18] MEDS: CYCLOSPORINE 1 EACH EYE-BOTH ×2 (10:15→20:40)
[2024-01-18] MEDS: Cyclobenzaprine HCl 5 MG TABLET PO (11:39)
--- NOTE | 2024-01-18 15:00 | P.PNPSI_ITS ---
Subjective Subjective Date of Service: 01/18/24 Reason For Visit: psychosis Subjective Notes: Conditional Voluntary Interim History: The nursing staff reported no changes in her mental status she slept 8 hours. Today on interview the patient was upset that she was not waking up for breakfast and she was too late. Waiting for placement. Mental Status Exam Mental Status Exam Patient Appearance: Well Grooomed and Appropriate Patient Orientation: Person and Situation Level of Consciousness: Awake and Appropriate Patient Behavior: Appropriate and Cooperative Mood Description: Calm Affect Description: Constricted Patient Cognition Impaired: Yes Ability to Follow Directions: Good Speech Pattern: Clear Hallucinations: None Delusions: Not Present Thought Process: Distracted and Slowed Thinking Thought Content: positive for [place] and positive for Poverty of Content Judgement: Fair Diagnostics Vital Signs (24Hr): Vital Signs - 24 hr 01/17/24 20:00 01/18/24 08:00 Temperature 97.5 F 96.8 F Pulse Rate 78 60 Respiratory Rate 18 18 Blood Pressure 144/66 H 146/63 H Pulse Oximetry 97 100 Oxygen Delivery Method Room Air Room Air BMI result Body Mass Index 30.5 Labs 01/06/24 07:28 01/13/24 07:07 Labs: Laboratory Results - last 48 hr 01/16/24 01/17/24 01/17/24 19:33 06:21 19:33 POC Glucose 172 H 102 181 H 01/18/24 06:39 POC Glucose 110 Medications Medications Current Medications Acetaminophen (Acetaminophen 325 Mg Tablet) 650 mg PO Q6H PRN PRN Reason: Headache/Pain Mild Scale (1-3) Last Admin: 01/18/24 10:12 Dose: 650 mg Al Hydroxide/Mg Hydroxide (Magnesium Hydrox/Alum Hydrox 30 Ml Oral.Susp) 30 ml PO Q6H PRN PRN Reason: Heartburn/Nausea Allopurinol (Allopurinol 100 Mg Tablet) 100 mg PO DAILY [facility] Last Admin: 01/18/24 09:01 Dose: 100 mg Amlodipine Besylate (Amlodipine Besylate 2.5 Mg Tablet) 2.5 mg PO DAILY [facility]; Protocol Last Admin: 01/18/24 09:01 Dose: 2.5 mg Artificial Tears (Artificial Tears 15 Ml Drops) 2 drop EYE-BOTH Q4H PRN PRN Reason: Dry Eyes Last Admin: 01/10/24 09:25 Dose: 2 drop Atorvastatin Calcium (Atorvastatin Calcium 10 Mg Tablet) 10 mg PO BEDTIME [facility] Last Admin: 01/17/24 20:03 Dose: 10 mg Cyclobenzaprine HCl (Cyclobenzaprine Hcl 5 Mg Tablet) 5 mg PO TID PRN PRN Reason: back spasm Last Admin: 01/18/24 11:39 Dose: 5 mg Diphenoxylate HCl/Atropine (Diphenoxylate/Atrop 2.5/0.025 Tablet) 1 tab PO DAILY PRN PRN Reason: Diarrhea Last Admin: 01/10/24 01:42 Dose: 1 tab Donepezil HCl (Donepezil Hcl 5 Mg Tablet) 5 mg PO BEDTIME [facility] Last Admin: 01/17/24 20:03 Dose: 5 mg Escitalopram Oxalate (Escitalopram Oxalate 10 Mg Tablet) 10 mg PO DAILY [facility] Last Admin: 01/18/24 09:01 Dose: 10 mg Levothyroxine Sodium (Levothyroxine Sodium 88 Mcg Tablet) 88 mcg PO DAILY@0600 [facility] Last Admin: 01/18/24 06:41 Dose: 88 mcg Lidocaine (Lidocaine 4 % Patch Adh..Patch) 2 patch TRANSDERMA DAILY [facility]; Protocol Last Admin: 01/18/24 09:07 Dose: Not Given Loperamide HCl (Loperamide Hcl 2 Mg Capsule) 2 mg PO Q4H PRN PRN Reason: Loose Stool Lorazepam (Lorazepam 0.5 Mg Tablet) 0.5 mg PO DAILY PRN PRN Reason: anxiety Last Admin: 01/10/24 09:26 Dose: 0.5 mg Magnesium Hydroxide (Milk Of Magnesia 30 Ml Oral.Susp) 30 ml PO DAILY PRN PRN Reason: Constipation Memantine (Memantine Hcl 5 Mg Tablet) 5 mg PO DAILY [facility] Last Admin: 01/18/24 09:01 Dose: 5 mg Metformin HCl (Metformin Hcl Er 750 Mg Tab.Er.24h) 750 mg PO BEDTIME [facility] Last Admin: 01/17/24 20:03 Dose: 750 mg Pt Own (Cyclosporine ([Restasis] 1 Drop)) 1 drop EYE-BOTH BID [facility] Last Admin: 01/18/24 10:15 Dose: 1 drop Olanzapine (Olanzapine 2.5 Mg Tablet) 2.5 mg PO Q4H PRN PRN Reason: agitation/acute psychosis Simethicone (Simethicone 80 Mg Tab.Chew) 80 mg PO QIDWMHS PRN PRN Reason: bloating Last Admin: 01/17/24 20:03 Dose: 80 mg Sitagliptin Phosphate (Sitagliptin Phosphate 100 Mg Tablet) 100 mg PO DAILY [facility] Last Admin: 01/18/24 09:01 Dose: 100 mg Trazodone HCl (Trazodone Hcl 50 Mg Tablet) 50 mg PO BEDTIME MRX1 PRN PRN Reason: Insomnia Vitamin D (Cholecalciferol (Vitamin D3) 25 Mcg Tablet) 25 mcg PO DAILY [facility] Last Admin: 01/18/24 09:01 Dose: 25 mcg Zolpidem Tartrate (Zolpidem Tartrate 5 Mg Tablet) 5 mg PO BEDTIME [facility] Last Admin: 01/17/24 20:04 Dose: 5 mg Allergies Allergies Allergy/AdvReac Type Severity Reaction Status Date / Time codeine Allergy Unknown Verified 12/07/23 20:27 Assessment & Plan Assessment & Plan (1) Dementia with psychotic disturbance: Status: Acute Code(s): F03.92 - Unspecified dementia, unspecified severity, with psychotic disturbance Plan Mrs. Jin is a 83 year-old woman with hx of vascular dementia with delusions of having an affair and some paranoid delusions. Some insight that this may not be the case but pt very much believes and takes action based on delusion despite here reporting that it may not be happening. It is unclear report from [facility] as to suicidal ideation. no indication of imminent harm to self or others, but collateral information is pending from family. May consider antipsychotic. PLAN 1. Restart Namenda. 2. Rexulti was started and increase it to 0.5 p.o. b.i.d. at this point. We are discontinued it on December 18 since the patient has refused to take it and there is no evidence of assaultive behavior. 3. Information of healthcare proxy. 4. Reassessment with results. 5. Waiting for placement Reason for continued inpatient stay Substantial Risk for: inability to function, rapid decompensation and med/psych decompensation Time Spent With Patient Time: Total time managing care of this patient today __20__ minutes.
[2024-01-18 20:00] VITALS: BP 128/60; PULSE 65; RESP 16; TEMP 36.4; O2SAT 100
[2024-01-18] MEDS: Atorvastatin Calcium 10 MG TABLET PO (20:40)
[2024-01-18] MEDS: Zolpidem Tartrate 5 MG TABLET PO (20:40)
[2024-01-18] MEDS: metFORMIN HCl ER 750 MG TAB.ER.24H PO (20:40)
[2024-01-18] MEDS: Donepezil HCl 5 MG TABLET PO (20:40)
[2024-01-18 20:51] LABS: Glucose, Whole Blood 163 mg/dL (60-115)
[2024-01-18] MEDS: Simethicone 80 MG TAB.CHEW PO (20:51)
[2024-01-19] MEDS: Levothyroxine Sodium 88 MCG TABLET PO (06:43)
[2024-01-19 07:00] LABS: Glucose, Whole Blood 84 mg/dL (60-115)
[2024-01-19 08:00] VITALS: BP 131/62; PULSE 62; RESP 18; TEMP 36.5; O2SAT 97
[2024-01-19] MEDS: amLODIPine Besylate 2.5 MG TABLET PO (08:35)
[2024-01-19] MEDS: SITagliptin Phosphate 100 MG TABLET PO (08:35)
[2024-01-19] MEDS: allopurinoL 100 MG TABLET PO (08:35)
[2024-01-19] MEDS: Escitalopram Oxalate 10 MG TABLET PO (08:37)
[2024-01-19] MEDS: Memantine HCl 5 MG TABLET PO (08:37)
[2024-01-19] MEDS: Cholecalciferol (Vitamin D3) 25 MCG TABLET PO (08:37)
[2024-01-19] MEDS: CYCLOSPORINE 1 EACH EYE-BOTH ×2 (08:40→20:17)
[2024-01-19] MEDS: Simethicone 80 MG TAB.CHEW PO (08:44)
[2024-01-19] MEDS: Acetaminophen 325 MG TABLET 650 MG PO ×2 (08:44→20:16)
--- NOTE | 2024-01-19 16:26 | P.PNPSI_ITS ---
Subjective Subjective Date of Service: 01/19/24 Reason For Visit: psychosis Subjective Notes: Conditional Voluntary Interim History: The nursing staff reported no changes in her mental status cooperative pleasant. Fully compliant with treatment she slept 8 hours. On interview the patient denies new symptoms, waiting for placement. The clinical social work aide reported the [facility] application still in process. Mental Status Exam Mental Status Exam Patient Appearance: Appropriate Patient Orientation: Person and Situation Level of Consciousness: Awake and Appropriate Patient Behavior: Guarded and Passive Mood Description: Withdrawn Affect Description: Constricted Patient Cognition Impaired: Yes Ability to Follow Directions: Good Speech Pattern: Clear Hallucinations: None Delusions: Not Present Thought Process: Distracted and Slowed Thinking Thought Content: positive for [place] and positive for Poverty of Content Judgement: Fair Diagnostics Vital Signs (24Hr): Vital Signs - 24 hr 01/18/24 20:00 01/19/24 08:00 Temperature 97.6 F 97.7 F Pulse Rate 65 62 Respiratory Rate 16 18 Blood Pressure 128/60 131/62 Pulse Oximetry 100 97 Oxygen Delivery Method Room Air Room Air BMI result Body Mass Index 30.5 Labs 01/06/24 07:28 01/13/24 07:07 Labs: Laboratory Results - last 48 hr 01/17/24 01/18/24 01/18/24 19:33 06:39 20:38 POC Glucose 181 H 110 163 H 01/19/24 06:40 POC Glucose 84 Medications Medications Current Medications Acetaminophen (Acetaminophen 325 Mg Tablet) 650 mg PO Q6H PRN PRN Reason: Headache/Pain Mild Scale (1-3) Last Admin: 01/19/24 08:44 Dose: 650 mg Al Hydroxide/Mg Hydroxide (Magnesium Hydrox/Alum Hydrox 30 Ml Oral.Susp) 30 ml PO Q6H PRN PRN Reason: Heartburn/Nausea Allopurinol (Allopurinol 100 Mg Tablet) 100 mg PO DAILY [facility] Last Admin: 01/19/24 08:35 Dose: 100 mg Amlodipine Besylate (Amlodipine Besylate 2.5 Mg Tablet) 2.5 mg PO DAILY [facility]; Protocol Last Admin: 01/19/24 08:35 Dose: 2.5 mg Artificial Tears (Artificial Tears 15 Ml Drops) 2 drop EYE-BOTH Q4H PRN PRN Reason: Dry Eyes Last Admin: 01/10/24 09:25 Dose: 2 drop Atorvastatin Calcium (Atorvastatin Calcium 10 Mg Tablet) 10 mg PO BEDTIME [facility] Last Admin: 01/18/24 20:40 Dose: 10 mg Cyclobenzaprine HCl (Cyclobenzaprine Hcl 5 Mg Tablet) 5 mg PO TID PRN PRN Reason: back spasm Last Admin: 01/18/24 11:39 Dose: 5 mg Diphenoxylate HCl/Atropine (Diphenoxylate/Atrop 2.5/0.025 Tablet) 1 tab PO DAILY PRN PRN Reason: Diarrhea Last Admin: 01/10/24 01:42 Dose: 1 tab Donepezil HCl (Donepezil Hcl 5 Mg Tablet) 5 mg PO BEDTIME [facility] Last Admin: 01/18/24 20:40 Dose: 5 mg Escitalopram Oxalate (Escitalopram Oxalate 10 Mg Tablet) 10 mg PO DAILY [facility] Last Admin: 01/19/24 08:37 Dose: 10 mg Levothyroxine Sodium (Levothyroxine Sodium 88 Mcg Tablet) 88 mcg PO DAILY@0600 [facility] Last Admin: 01/19/24 06:43 Dose: 88 mcg Lidocaine (Lidocaine 4 % Patch Adh..Patch) 2 patch TRANSDERMA DAILY [facility]; Protocol Last Admin: 01/19/24 08:50 Dose: Not Given Loperamide HCl (Loperamide Hcl 2 Mg Capsule) 2 mg PO Q4H PRN PRN Reason: Loose Stool Lorazepam (Lorazepam 0.5 Mg Tablet) 0.5 mg PO DAILY PRN PRN Reason: anxiety Last Admin: 01/10/24 09:26 Dose: 0.5 mg Magnesium Hydroxide (Milk Of Magnesia 30 Ml Oral.Susp) 30 ml PO DAILY PRN PRN Reason: Constipation Memantine (Memantine Hcl 5 Mg Tablet) 5 mg PO DAILY [facility] Last Admin: 01/19/24 08:37 Dose: 5 mg Metformin HCl (Metformin Hcl Er 750 Mg Tab.Er.24h) 750 mg PO BEDTIME [facility] Last Admin: 01/18/24 20:40 Dose: 750 mg Pt Own (Cyclosporine ([Restasis] 1 Drop)) 1 drop EYE-BOTH BID [facility] Last Admin: 01/19/24 08:40 Dose: 1 drop Olanzapine (Olanzapine 2.5 Mg Tablet) 2.5 mg PO Q4H PRN PRN Reason: agitation/acute psychosis Simethicone (Simethicone 80 Mg Tab.Chew) 80 mg PO QIDWMHS PRN PRN Reason: bloating Last Admin: 01/19/24 08:44 Dose: 80 mg Sitagliptin Phosphate (Sitagliptin Phosphate 100 Mg Tablet) 100 mg PO DAILY [facility] Last Admin: 01/19/24 08:35 Dose: 100 mg Trazodone HCl (Trazodone Hcl 50 Mg Tablet) 50 mg PO BEDTIME MRX1 PRN PRN Reason: Insomnia Vitamin D (Cholecalciferol (Vitamin D3) 25 Mcg Tablet) 25 mcg PO DAILY [facility] Last Admin: 01/19/24 08:37 Dose: 25 mcg Zolpidem Tartrate (Zolpidem Tartrate 5 Mg Tablet) 5 mg PO BEDTIME [facility] Last Admin: 01/18/24 20:40 Dose: 5 mg Allergies Allergies Allergy/AdvReac Type Severity Reaction Status Date / Time codeine Allergy Unknown Verified 12/07/23 20:27 Assessment & Plan Assessment & Plan (1) Dementia with psychotic disturbance: Status: Acute Code(s): F03.92 - Unspecified dementia, unspecified severity, with psychotic disturbance Plan Mrs. Jin is a 83 year-old woman with hx of vascular dementia with delusions of having an affair and some paranoid delusions. Some insight that this may not be the case but pt very much believes and takes action based on delusion despite here reporting that it may not be happening. It is unclear report from [facility] as to suicidal ideation. no indication of imminent harm to self or others, but collateral information is pending from family. May consider antipsychotic. PLAN 1. Restart Namenda. 2. Rexulti was started and increase it to 0.5 p.o. b.i.d. at this point. We are discontinued it on December 18 since the patient has refused to take it and there is no evidence of assaultive behavior. 3. Information of healthcare proxy. 4. Reassessment with results. 5. Waiting for placement Reason for continued inpatient stay Substantial Risk for: inability to function, rapid decompensation and med/psych decompensation Time Spent With Patient Time: Total time managing care of this patient today __20__ minutes.
[2024-01-19 20:00] VITALS: BP 141/63; PULSE 74; RESP 16; TEMP 36.2; O2SAT 98
[2024-01-19] MEDS: Atorvastatin Calcium 10 MG TABLET PO (20:16)
[2024-01-19] MEDS: Donepezil HCl 5 MG TABLET PO (20:16)
[2024-01-19] MEDS: metFORMIN HCl ER 750 MG TAB.ER.24H PO (20:17)
[2024-01-19] MEDS: Zolpidem Tartrate 5 MG TABLET PO (20:17)
[2024-01-19 20:56] LABS: Glucose, Whole Blood 172 mg/dL (60-115)
[2024-01-20] MEDS: Levothyroxine Sodium 88 MCG TABLET PO (06:22)
[2024-01-20 06:57] LABS: Glucose, Whole Blood 101 mg/dL (60-115)
[2024-01-20 08:00] VITALS: BP 140/62; PULSE 62; RESP 18; TEMP 36.8; O2SAT 99
[2024-01-20] MEDS: amLODIPine Besylate 2.5 MG TABLET PO (08:05)
[2024-01-20] MEDS: Cholecalciferol (Vitamin D3) 25 MCG TABLET PO (08:05)
[2024-01-20] MEDS: SITagliptin Phosphate 100 MG TABLET PO (08:05)
[2024-01-20] MEDS: Escitalopram Oxalate 10 MG TABLET PO (08:05)
[2024-01-20] MEDS: Memantine HCl 5 MG TABLET PO (08:05)
[2024-01-20] MEDS: allopurinoL 100 MG TABLET PO (08:05)
[2024-01-20] MEDS: Acetaminophen 325 MG TABLET 650 MG PO (08:06)
[2024-01-20] MEDS: Simethicone 80 MG TAB.CHEW PO (08:06)
[2024-01-20] MEDS: CYCLOSPORINE 1 EACH EYE-BOTH ×2 (08:10→20:17)
[2024-01-20 08:59] LABS: Creatinine Clr Calc Pharmacy 41.2; Estimated Glomerular Filt Rate 48
--- NOTE | 2024-01-20 11:12 | P.PNPSI_ITS ---
Subjective Subjective Date of Service: 01/20/24 Reason For Visit: psychosis Subjective Notes: Conditional Voluntary Interim History: Patient's case reviewed with Nursing staff chart reviewed patient seen. The nursing staff reported no changes in her mental status cooperative pleasant. Discharge planning in place. Mental Status Exam Mental Status Exam Patient Appearance: Appropriate Patient Orientation: Person and Situation Level of Consciousness: Awake and Appropriate Patient Behavior: Guarded and Passive Mood Description: Withdrawn Affect Description: Calm and Constricted Patient Cognition Impaired: Yes Ability to Follow Directions: Good Speech Pattern: Clear Hallucinations: None Delusions: Not Present Thought Process: Slowed Thinking Thought Content: positive for [place] and positive for Poverty of Content Judgement: Fair Judgement and Insight: Cooperative with care Diagnostics Vital Signs (24Hr): Vital Signs - 24 hr 01/19/24 20:00 01/20/24 08:00 Temperature 97.2 F 98.2 F Pulse Rate 74 62 Respiratory Rate 16 18 Blood Pressure 141/63 H 140/62 H Pulse Oximetry 98 99 Oxygen Delivery Method Room Air Room Air BMI result Body Mass Index 30.5 Labs 01/06/24 07:28 01/20/24 08:35 Labs: Laboratory Results - last 48 hr 01/18/24 01/19/24 01/19/24 20:38 06:40 20:14 Creatinine Estim Creat Clear Calc Estimated GFR POC Glucose 163 H 84 172 H 01/20/24 01/20/24 06:32 08:35 Creatinine 1.08 Estim Creat Clear Calc 41.2 Estimated GFR 48 POC Glucose 101 Medications Medications Current Medications Acetaminophen (Acetaminophen 325 Mg Tablet) 650 mg PO Q6H PRN PRN Reason: Headache/Pain Mild Scale (1-3) Last Admin: 01/20/24 08:06 Dose: 650 mg Al Hydroxide/Mg Hydroxide (Magnesium Hydrox/Alum Hydrox 30 Ml Oral.Susp) 30 ml PO Q6H PRN PRN Reason: Heartburn/Nausea Allopurinol (Allopurinol 100 Mg Tablet) 100 mg PO DAILY [facility] Last Admin: 01/20/24 08:05 Dose: 100 mg Amlodipine Besylate (Amlodipine Besylate 2.5 Mg Tablet) 2.5 mg PO DAILY [facility]; Protocol Last Admin: 01/20/24 08:05 Dose: 2.5 mg Artificial Tears (Artificial Tears 15 Ml Drops) 2 drop EYE-BOTH Q4H PRN PRN Reason: Dry Eyes Last Admin: 01/10/24 09:25 Dose: 2 drop Atorvastatin Calcium (Atorvastatin Calcium 10 Mg Tablet) 10 mg PO BEDTIME [facility] Last Admin: 01/19/24 20:16 Dose: 10 mg Cyclobenzaprine HCl (Cyclobenzaprine Hcl 5 Mg Tablet) 5 mg PO TID PRN PRN Reason: back spasm Last Admin: 01/18/24 11:39 Dose: 5 mg Diphenoxylate HCl/Atropine (Diphenoxylate/Atrop 2.5/0.025 Tablet) 1 tab PO DAILY PRN PRN Reason: Diarrhea Last Admin: 01/10/24 01:42 Dose: 1 tab Donepezil HCl (Donepezil Hcl 5 Mg Tablet) 5 mg PO BEDTIME [facility] Last Admin: 01/19/24 20:16 Dose: 5 mg Escitalopram Oxalate (Escitalopram Oxalate 10 Mg Tablet) 10 mg PO DAILY [facility] Last Admin: 01/20/24 08:05 Dose: 10 mg Levothyroxine Sodium (Levothyroxine Sodium 88 Mcg Tablet) 88 mcg PO DAILY@0600 [facility] Last Admin: 01/20/24 06:22 Dose: 88 mcg Lidocaine (Lidocaine 4 % Patch Adh..Patch) 2 patch TRANSDERMA DAILY [facility]; Protocol Last Admin: 01/20/24 08:06 Dose: Not Given Loperamide HCl (Loperamide Hcl 2 Mg Capsule) 2 mg PO Q4H PRN PRN Reason: Loose Stool Lorazepam (Lorazepam 0.5 Mg Tablet) 0.5 mg PO DAILY PRN PRN Reason: anxiety Last Admin: 01/10/24 09:26 Dose: 0.5 mg Magnesium Hydroxide (Milk Of Magnesia 30 Ml Oral.Susp) 30 ml PO DAILY PRN PRN Reason: Constipation Memantine (Memantine Hcl 5 Mg Tablet) 5 mg PO DAILY [facility] Last Admin: 01/20/24 08:05 Dose: 5 mg Metformin HCl (Metformin Hcl Er 750 Mg Tab.Er.24h) 750 mg PO BEDTIME [facility] Last Admin: 01/19/24 20:17 Dose: 750 mg Pt Own (Cyclosporine ([Restasis] 1 Drop)) 1 drop EYE-BOTH BID [facility] Last Admin: 01/20/24 08:10 Dose: 1 drop Olanzapine (Olanzapine 2.5 Mg Tablet) 2.5 mg PO Q4H PRN PRN Reason: agitation/acute psychosis Simethicone (Simethicone 80 Mg Tab.Chew) 80 mg PO QIDWMHS PRN PRN Reason: bloating Last Admin: 01/20/24 08:06 Dose: 80 mg Sitagliptin Phosphate (Sitagliptin Phosphate 100 Mg Tablet) 100 mg PO DAILY [facility] Last Admin: 01/20/24 08:05 Dose: 100 mg Trazodone HCl (Trazodone Hcl 50 Mg Tablet) 50 mg PO BEDTIME MRX1 PRN PRN Reason: Insomnia Vitamin D (Cholecalciferol (Vitamin D3) 25 Mcg Tablet) 25 mcg PO DAILY [facility] Last Admin: 01/20/24 08:05 Dose: 25 mcg Zolpidem Tartrate (Zolpidem Tartrate 5 Mg Tablet) 5 mg PO BEDTIME [facility] Last Admin: 01/19/24 20:17 Dose: 5 mg Allergies Allergies Allergy/AdvReac Type Severity Reaction Status Date / Time codeine Allergy Unknown Verified 12/07/23 20:27 Assessment & Plan Assessment & Plan (1) Dementia with psychotic disturbance: Status: Acute Code(s): F03.92 - Unspecified dementia, unspecified severity, with psychotic disturbance Plan Mrs. Jin is a 83 year-old woman with hx of vascular dementia with delusions of having an affair and some paranoid delusions. Some insight that this may not be the case but pt very much believes and takes action based on delusion despite here reporting that it may not be happening. It is unclear report from [facility] as to suicidal ideation. no indication of imminent harm to self or others, but collateral information is pending from family. May consider antipsychotic. PLAN 1. Restart Namenda. 2. Rexulti was started and increase it to 0.5 p.o. b.i.d. at this point. We are discontinued it on December 18 since the patient has refused to take it and there is no evidence of assaultive behavior. 3. Information of healthcare proxy. 4. Reassessment with results. 5. Waiting for placement 01/21/2024 Continue S citalopram lorazepam and olanzapine p.r.n. discharge planning Reason for continued inpatient stay Substantial Risk for: inability to function and rapid decompensation Time Spent With Patient Time: Total time managing care of this patient today 16____ minutes.
[2024-01-20 20:00] VITALS: BP 134/63; PULSE 70; RESP 16; TEMP 36.9; O2SAT 99
[2024-01-20] MEDS: Zolpidem Tartrate 5 MG TABLET PO (20:17)
[2024-01-20] MEDS: Donepezil HCl 5 MG TABLET PO (20:17)
[2024-01-20] MEDS: metFORMIN HCl ER 750 MG TAB.ER.24H PO (20:17)
[2024-01-20] MEDS: Atorvastatin Calcium 10 MG TABLET PO (20:17)
[2024-01-20 20:36] LABS: Glucose, Whole Blood 167 mg/dL (60-115)
[2024-01-21] MEDS: Levothyroxine Sodium 88 MCG TABLET PO (06:30)
[2024-01-21 06:57] LABS: Glucose, Whole Blood 129 mg/dL (60-115)
[2024-01-21 08:15] VITALS: BP 153/62; PULSE 70; RESP 18; TEMP 37; O2SAT 94
[2024-01-21] MEDS: Acetaminophen 325 MG TABLET 650 MG PO ×2 (08:52→21:09)
[2024-01-21] MEDS: allopurinoL 100 MG TABLET PO (08:53)
[2024-01-21] MEDS: Escitalopram Oxalate 10 MG TABLET PO (08:53)
[2024-01-21] MEDS: Memantine HCl 5 MG TABLET PO (08:53)
[2024-01-21] MEDS: amLODIPine Besylate 2.5 MG TABLET PO (08:53)
[2024-01-21] MEDS: Cholecalciferol (Vitamin D3) 25 MCG TABLET PO (08:53)
[2024-01-21] MEDS: CYCLOSPORINE 1 EACH EYE-BOTH ×2 (08:53→21:10)
[2024-01-21] MEDS: Simethicone 80 MG TAB.CHEW PO ×2 (08:53→21:08)
[2024-01-21] MEDS: SITagliptin Phosphate 100 MG TABLET PO (08:53)
[2024-01-21 20:00] VITALS: BP 136/60; PULSE 72; RESP 18; TEMP 36.7; O2SAT 96
[2024-01-21 20:05] LABS: Glucose, Whole Blood 188 mg/dL (60-115)
[2024-01-21] MEDS: metFORMIN HCl ER 750 MG TAB.ER.24H PO (21:08)
[2024-01-21] MEDS: Atorvastatin Calcium 10 MG TABLET PO (21:08)
[2024-01-21] MEDS: Donepezil HCl 5 MG TABLET PO (21:09)
[2024-01-21] MEDS: Zolpidem Tartrate 5 MG TABLET PO (21:09)
--- NOTE | 2024-01-21 22:41 | P.PNPSI_ITS ---
Subjective Subjective Date of Service: 01/21/24 Reason For Visit: psychosis Subjective Notes: Conditional Voluntary Interim History: Patient's case reviewed with Nursing staff chart reviewed patient seen. The nursing staff reported no changes in her mental status cooperative pleasant. No change Discharge planning in place. Mental Status Exam Mental Status Exam Patient Appearance: Appropriate Patient Orientation: Person and Situation Level of Consciousness: Awake and Appropriate Patient Behavior: Guarded and Passive Mood Description: Withdrawn Affect Description: Calm and Constricted Patient Cognition Impaired: Yes Ability to Follow Directions: Good Speech Pattern: Clear Hallucinations: None Delusions: Not Present Thought Process: Slowed Thinking Thought Content: positive for [place] and positive for Poverty of Content Judgement: Fair Judgement and Insight: Cooperative with care Diagnostics Vital Signs (24Hr): Vital Signs - 24 hr 01/21/24 08:15 01/21/24 20:00 Temperature 98.6 F 98.1 F Pulse Rate 70 72 Respiratory Rate 18 18 Blood Pressure 153/62 H 136/60 Pulse Oximetry 94 96 Oxygen Delivery Method Room Air Room Air BMI result Body Mass Index 30.5 Labs 01/06/24 07:28 01/20/24 08:35 Labs: Laboratory Results - last 48 hr 01/20/24 01/20/24 01/20/24 06:32 08:35 20:15 Creatinine 1.08 Estim Creat Clear Calc 41.2 Estimated GFR 48 POC Glucose 101 167 H 01/21/24 01/21/24 06:32 19:59 Creatinine Estim Creat Clear Calc Estimated GFR POC Glucose 129 H 188 H Medications Medications Current Medications Acetaminophen (Acetaminophen 325 Mg Tablet) 650 mg PO Q6H PRN PRN Reason: Headache/Pain Mild Scale (1-3) Last Admin: 01/21/24 21:09 Dose: 650 mg Al Hydroxide/Mg Hydroxide (Magnesium Hydrox/Alum Hydrox 30 Ml Oral.Susp) 30 ml PO Q6H PRN PRN Reason: Heartburn/Nausea Allopurinol (Allopurinol 100 Mg Tablet) 100 mg PO DAILY [facility] Last Admin: 01/21/24 08:53 Dose: 100 mg Amlodipine Besylate (Amlodipine Besylate 2.5 Mg Tablet) 2.5 mg PO DAILY [facility]; Protocol Last Admin: 01/21/24 08:53 Dose: 2.5 mg Artificial Tears (Artificial Tears 15 Ml Drops) 2 drop EYE-BOTH Q4H PRN PRN Reason: Dry Eyes Last Admin: 01/10/24 09:25 Dose: 2 drop Atorvastatin Calcium (Atorvastatin Calcium 10 Mg Tablet) 10 mg PO BEDTIME [facility] Last Admin: 01/21/24 21:08 Dose: 10 mg Cyclobenzaprine HCl (Cyclobenzaprine Hcl 5 Mg Tablet) 5 mg PO TID PRN PRN Reason: back spasm Last Admin: 01/18/24 11:39 Dose: 5 mg Diphenoxylate HCl/Atropine (Diphenoxylate/Atrop 2.5/0.025 Tablet) 1 tab PO DAILY PRN PRN Reason: Diarrhea Last Admin: 01/10/24 01:42 Dose: 1 tab Donepezil HCl (Donepezil Hcl 5 Mg Tablet) 5 mg PO BEDTIME [facility] Last Admin: 01/21/24 21:09 Dose: 5 mg Escitalopram Oxalate (Escitalopram Oxalate 10 Mg Tablet) 10 mg PO DAILY [facility] Last Admin: 01/21/24 08:53 Dose: 10 mg Levothyroxine Sodium (Levothyroxine Sodium 88 Mcg Tablet) 88 mcg PO DAILY@0600 [facility] Last Admin: 01/21/24 06:30 Dose: 88 mcg Lidocaine (Lidocaine 4 % Patch Adh..Patch) 2 patch TRANSDERMA DAILY [facility]; Protocol Last Admin: 01/21/24 08:56 Dose: Not Given Loperamide HCl (Loperamide Hcl 2 Mg Capsule) 2 mg PO Q4H PRN PRN Reason: Loose Stool Lorazepam (Lorazepam 0.5 Mg Tablet) 0.5 mg PO DAILY PRN PRN Reason: anxiety Last Admin: 01/10/24 09:26 Dose: 0.5 mg Magnesium Hydroxide (Milk Of Magnesia 30 Ml Oral.Susp) 30 ml PO DAILY PRN PRN Reason: Constipation Memantine (Memantine Hcl 5 Mg Tablet) 5 mg PO DAILY [facility] Last Admin: 01/21/24 08:53 Dose: 5 mg Metformin HCl (Metformin Hcl Er 750 Mg Tab.Er.24h) 750 mg PO BEDTIME [facility] Last Admin: 01/21/24 21:08 Dose: 750 mg Pt Own (Cyclosporine ([Restasis] 1 Drop)) 1 drop EYE-BOTH BID [facility] Last Admin: 01/21/24 21:10 Dose: 1 drop Olanzapine (Olanzapine 2.5 Mg Tablet) 2.5 mg PO Q4H PRN PRN Reason: agitation/acute psychosis Simethicone (Simethicone 80 Mg Tab.Chew) 80 mg PO QIDWMHS PRN PRN Reason: bloating Last Admin: 01/21/24 21:08 Dose: 80 mg Sitagliptin Phosphate (Sitagliptin Phosphate 100 Mg Tablet) 100 mg PO DAILY [facility] Last Admin: 01/21/24 08:53 Dose: 100 mg Trazodone HCl (Trazodone Hcl 50 Mg Tablet) 50 mg PO BEDTIME MRX1 PRN PRN Reason: Insomnia Vitamin D (Cholecalciferol (Vitamin D3) 25 Mcg Tablet) 25 mcg PO DAILY [facility] Last Admin: 01/21/24 08:53 Dose: 25 mcg Zolpidem Tartrate (Zolpidem Tartrate 5 Mg Tablet) 5 mg PO BEDTIME [facility] Last Admin: 01/21/24 21:09 Dose: 5 mg Allergies Allergies Allergy/AdvReac Type Severity Reaction Status Date / Time codeine Allergy Unknown Verified 12/07/23 20:27 Assessment & Plan Assessment & Plan (1) Dementia with psychotic disturbance: Status: Acute Code(s): F03.92 - Unspecified dementia, unspecified severity, with psychotic disturbance Plan Mrs. Jin is a 83 year-old woman with hx of vascular dementia with delusions of having an affair and some paranoid delusions. Some insight that this may not be the case but pt very much believes and takes action based on delusion despite here reporting that it may not be happening. It is unclear report from [facility] as to suicidal ideation. no indication of imminent harm to self or others, but collateral information is pending from family. May consider antipsychotic. PLAN 1. Restart Namenda. 2. Rexulti was started and increase it to 0.5 p.o. b.i.d. at this point. We are discontinued it on December 18 since the patient has refused to take it and there is no evidence of assaultive behavior. 3. Information of healthcare proxy. 4. Reassessment with results. 5. Waiting for placement 01/20/2024 Continue S citalopram lorazepam and olanzapine p.r.n. discharge planning 01/21/2024 Continue plan of care Reason for continued inpatient stay Substantial Risk for: inability to function and rapid decompensation Time Spent With Patient Time: Total time managing care of this patient today ____ minutes.
[2024-01-22] MEDS: Levothyroxine Sodium 88 MCG TABLET PO (06:31)
[2024-01-22 06:56] LABS: Glucose, Whole Blood 142 mg/dL (60-115)
[2024-01-22 08:00] VITALS: BP 147/70; PULSE 65; RESP 18; TEMP 36; O2SAT 97
[2024-01-22 08:34] VITALS: BP 147/70
[2024-01-22] MEDS: Memantine HCl 5 MG TABLET PO (08:34)
[2024-01-22] MEDS: Cholecalciferol (Vitamin D3) 25 MCG TABLET PO (08:34)
[2024-01-22] MEDS: Simethicone 80 MG TAB.CHEW PO ×2 (08:34→20:49)
[2024-01-22] MEDS: amLODIPine Besylate 2.5 MG TABLET PO (08:34)
[2024-01-22] MEDS: SITagliptin Phosphate 100 MG TABLET PO (08:34)
[2024-01-22] MEDS: Escitalopram Oxalate 10 MG TABLET PO (08:34)
[2024-01-22] MEDS: allopurinoL 100 MG TABLET PO (08:34)
[2024-01-22] MEDS: Acetaminophen 325 MG TABLET 650 MG PO ×2 (08:34→20:49)
[2024-01-22] MEDS: CYCLOSPORINE 1 EACH EYE-BOTH ×2 (08:35→20:49)
--- NOTE | 2024-01-22 12:45 | HO.PSYCHPN ---
Subjective Subjective Date of Service: 01/22/24 Reason For Visit: psychosis Subjective Notes: Conditional Voluntary Interim History: The nursing staff reported the patient had been pleasant, cheerful cooperative. The adoption social worker reported that her [facility] application still in process. On interview the patient denies new symptoms, waiting for placement. Mental Status Exam Mental Status Exam Patient Appearance: Appropriate Patient Orientation: Person and Situation Level of Consciousness: Awake and Appropriate Patient Behavior: Guarded and Passive Mood Description: Withdrawn Affect Description: Constricted Patient Cognition Impaired: Yes Ability to Follow Directions: Good Speech Pattern: Clear Hallucinations: None Delusions: Not Present Thought Process: Distracted and Slowed Thinking Thought Content: positive for [place] and positive for Poverty of Content Judgement: Fair Diagnostics Vital Signs (24Hr): Vital Signs - 24 hr 01/21/24 20:00 01/22/24 08:00 01/22/24 08:34 Temperature 98.1 F 96.8 F Pulse Rate 72 65 Respiratory Rate 18 18 Blood Pressure 136/60 147/70 H 147/70 H Pulse Oximetry 96 97 Oxygen Delivery Method Room Air Room Air BMI result Body Mass Index 30.5 Labs 01/06/24 07:28 01/20/24 08:35 Labs: Laboratory Results - last 48 hr 01/20/24 01/21/24 01/21/24 20:15 06:32 19:59 POC Glucose 167 H 129 H 188 H 01/22/24 06:33 POC Glucose 142 H Medications Medications Current Medications Acetaminophen (Acetaminophen 325 Mg Tablet) 650 mg PO Q6H PRN PRN Reason: Headache/Pain Mild Scale (1-3) Last Admin: 01/22/24 08:34 Dose: 650 mg Al Hydroxide/Mg Hydroxide (Magnesium Hydrox/Alum Hydrox 30 Ml Oral.Susp) 30 ml PO Q6H PRN PRN Reason: Heartburn/Nausea Allopurinol (Allopurinol 100 Mg Tablet) 100 mg PO DAILY [facility] Last Admin: 01/22/24 08:34 Dose: 100 mg Amlodipine Besylate (Amlodipine Besylate 2.5 Mg Tablet) 2.5 mg PO DAILY [facility]; Protocol Last Admin: 01/22/24 08:34 Dose: 2.5 mg Artificial Tears (Artificial Tears 15 Ml Drops) 2 drop EYE-BOTH Q4H PRN PRN Reason: Dry Eyes Last Admin: 01/10/24 09:25 Dose: 2 drop Atorvastatin Calcium (Atorvastatin Calcium 10 Mg Tablet) 10 mg PO BEDTIME [facility] Last Admin: 01/21/24 21:08 Dose: 10 mg Cyclobenzaprine HCl (Cyclobenzaprine Hcl 5 Mg Tablet) 5 mg PO TID PRN PRN Reason: back spasm Last Admin: 01/18/24 11:39 Dose: 5 mg Diphenoxylate HCl/Atropine (Diphenoxylate/Atrop 2.5/0.025 Tablet) 1 tab PO DAILY PRN PRN Reason: Diarrhea Last Admin: 01/10/24 01:42 Dose: 1 tab Donepezil HCl (Donepezil Hcl 5 Mg Tablet) 5 mg PO BEDTIME [facility] Last Admin: 01/21/24 21:09 Dose: 5 mg Escitalopram Oxalate (Escitalopram Oxalate 10 Mg Tablet) 10 mg PO DAILY [facility] Last Admin: 01/22/24 08:34 Dose: 10 mg Levothyroxine Sodium (Levothyroxine Sodium 88 Mcg Tablet) 88 mcg PO DAILY@0600 [facility] Last Admin: 01/22/24 06:31 Dose: 88 mcg Lidocaine (Lidocaine 4 % Patch Adh..Patch) 2 patch TRANSDERMA DAILY [facility]; Protocol Last Admin: 01/22/24 08:38 Dose: Not Given Loperamide HCl (Loperamide Hcl 2 Mg Capsule) 2 mg PO Q4H PRN PRN Reason: Loose Stool Lorazepam (Lorazepam 0.5 Mg Tablet) 0.5 mg PO DAILY PRN PRN Reason: anxiety Last Admin: 01/10/24 09:26 Dose: 0.5 mg Magnesium Hydroxide (Milk Of Magnesia 30 Ml Oral.Susp) 30 ml PO DAILY PRN PRN Reason: Constipation Memantine (Memantine Hcl 5 Mg Tablet) 5 mg PO DAILY [facility] Last Admin: 01/22/24 08:34 Dose: 5 mg Metformin HCl (Metformin Hcl Er 750 Mg Tab.Er.24h) 750 mg PO BEDTIME [facility] Last Admin: 01/21/24 21:08 Dose: 750 mg Pt Own (Cyclosporine ([Restasis] 1 Drop)) 1 drop EYE-BOTH BID [facility] Last Admin: 01/22/24 08:35 Dose: 1 drop Olanzapine (Olanzapine 2.5 Mg Tablet) 2.5 mg PO Q4H PRN PRN Reason: agitation/acute psychosis Simethicone (Simethicone 80 Mg Tab.Chew) 80 mg PO QIDWMHS PRN PRN Reason: bloating Last Admin: 01/22/24 08:34 Dose: 80 mg Sitagliptin Phosphate (Sitagliptin Phosphate 100 Mg Tablet) 100 mg PO DAILY [facility] Last Admin: 01/22/24 08:34 Dose: 100 mg Trazodone HCl (Trazodone Hcl 50 Mg Tablet) 50 mg PO BEDTIME MRX1 PRN PRN Reason: Insomnia Vitamin D (Cholecalciferol (Vitamin D3) 25 Mcg Tablet) 25 mcg PO DAILY [facility] Last Admin: 01/22/24 08:34 Dose: 25 mcg Zolpidem Tartrate (Zolpidem Tartrate 5 Mg Tablet) 5 mg PO BEDTIME [facility] Last Admin: 01/21/24 21:09 Dose: 5 mg Allergies Allergies Allergy/AdvReac Type Severity Reaction Status Date / Time codeine Allergy Unknown Verified 12/07/23 20:27 Assessment & Plan Assessment & Plan (1) Dementia with psychotic disturbance: Status: Acute Code(s): F03.92 - Unspecified dementia, unspecified severity, with psychotic disturbance Plan Mrs. Jin is a 83 year-old woman with hx of vascular dementia with delusions of having an affair and some paranoid delusions. Some insight that this may not be the case but pt very much believes and takes action based on delusion despite here reporting that it may not be happening. It is unclear report from [facility] as to suicidal ideation. no indication of imminent harm to self or others, but collateral information is pending from family. May consider antipsychotic. PLAN 1. Restart Namenda. 2. Rexulti was started and increase it to 0.5 p.o. b.i.d. at this point. We are discontinued it on December 18 since the patient has refused to take it and there is no evidence of assaultive behavior. 3. Information of healthcare proxy. 4. Reassessment with results. 5. Waiting for placement 6. Waiting for [facility] application clearance. Reason for continued inpatient stay Substantial Risk for: inability to function, rapid decompensation and med/psych decompensation Time Spent With Patient Time: Total time managing care of this patient today ___20_ minutes.
--- NOTE | 2024-01-22 13:14 | PC.NURSE ---
Kylie c/o vaginal itching. This gag writer observed several sores (approximately 1mm in diameter) to her inner bilateral labia. No discharge present. Texture is smooth appearing and reddened. Dr. Cornell notified.
[2024-01-22 20:00] VITALS: BP 147/65; PULSE 74; RESP 18; TEMP 36.6; O2SAT 97
[2024-01-22 20:06] LABS: Glucose, Whole Blood 202 mg/dL (60-115)
[2024-01-22] MEDS: Atorvastatin Calcium 10 MG TABLET PO (20:49)
[2024-01-22] MEDS: Donepezil HCl 5 MG TABLET PO (20:49)
[2024-01-22] MEDS: Zolpidem Tartrate 5 MG TABLET PO (20:49)
[2024-01-22] MEDS: metFORMIN HCl ER 750 MG TAB.ER.24H PO (20:49)
[2024-01-23] MEDS: Levothyroxine Sodium 88 MCG TABLET PO (06:55)
[2024-01-23 07:10] LABS: Glucose, Whole Blood 102 mg/dL (60-115)
[2024-01-23 08:46] VITALS: BP 137/65; PULSE 69; RESP 16; TEMP 36.8; O2SAT 97
[2024-01-23] MEDS: Cholecalciferol (Vitamin D3) 25 MCG TABLET PO (08:49)
[2024-01-23] MEDS: Memantine HCl 5 MG TABLET PO (08:49)
[2024-01-23] MEDS: SITagliptin Phosphate 100 MG TABLET PO (08:50)
[2024-01-23] MEDS: amLODIPine Besylate 2.5 MG TABLET PO (08:50)
[2024-01-23] MEDS: Escitalopram Oxalate 10 MG TABLET PO (08:50)
[2024-01-23] MEDS: allopurinoL 100 MG TABLET PO (08:50)
[2024-01-23] MEDS: CYCLOSPORINE 1 EACH EYE-BOTH ×2 (08:51→20:05)
--- NOTE | 2024-01-23 16:21 | HO.PSYCHPN ---
Subjective Subjective Date of Service: 01/23/24 Reason For Visit: psychosis Subjective Notes: Conditional Voluntary Interim History: The nursing staff reported no changes in her mental status compliant with treatment. The drug abuse social worker will called her daughter to workout on discharge planning. On interview the patient reported that she was feeling tired no new symptoms waiting for placement Mental Status Exam Mental Status Exam Patient Appearance: Appropriate Patient Orientation: Person and Situation Level of Consciousness: Awake and Appropriate Patient Behavior: Appropriate and Passive Mood Description: Calm Affect Description: Constricted Patient Cognition Impaired: Yes Ability to Follow Directions: Good Speech Pattern: Clear Hallucinations: None Delusions: Not Present Thought Process: Distracted and Slowed Thinking Thought Content: positive for [place] and positive for Poverty of Content Judgement: Fair Diagnostics Vital Signs (24Hr): Vital Signs - 24 hr 01/22/24 20:00 01/23/24 08:46 Temperature 97.8 F 98.2 F Pulse Rate 74 69 Respiratory Rate 18 16 Blood Pressure 147/65 H 137/65 Pulse Oximetry 97 97 Oxygen Delivery Method Room Air Room Air BMI result Body Mass Index 30.5 Labs 01/06/24 07:28 01/20/24 08:35 Labs: Laboratory Results - last 48 hr 01/21/24 01/22/24 01/22/24 19:59 06:33 19:41 POC Glucose 188 H 142 H 202 H 01/23/24 06:56 POC Glucose 102 Medications Medications Current Medications Acetaminophen (Acetaminophen 325 Mg Tablet) 650 mg PO Q6H PRN PRN Reason: Headache/Pain Mild Scale (1-3) Last Admin: 01/22/24 20:49 Dose: 650 mg Al Hydroxide/Mg Hydroxide (Magnesium Hydrox/Alum Hydrox 30 Ml Oral.Susp) 30 ml PO Q6H PRN PRN Reason: Heartburn/Nausea Allopurinol (Allopurinol 100 Mg Tablet) 100 mg PO DAILY [facility] Last Admin: 01/23/24 08:50 Dose: 100 mg Amlodipine Besylate (Amlodipine Besylate 2.5 Mg Tablet) 2.5 mg PO DAILY [facility]; Protocol Last Admin: 01/23/24 08:50 Dose: 2.5 mg Artificial Tears (Artificial Tears 15 Ml Drops) 2 drop EYE-BOTH Q4H PRN PRN Reason: Dry Eyes Last Admin: 01/10/24 09:25 Dose: 2 drop Atorvastatin Calcium (Atorvastatin Calcium 10 Mg Tablet) 10 mg PO BEDTIME [facility] Last Admin: 01/22/24 20:49 Dose: 10 mg Cyclobenzaprine HCl (Cyclobenzaprine Hcl 5 Mg Tablet) 5 mg PO TID PRN PRN Reason: back spasm Last Admin: 01/18/24 11:39 Dose: 5 mg Diphenoxylate HCl/Atropine (Diphenoxylate/Atrop 2.5/0.025 Tablet) 1 tab PO DAILY PRN PRN Reason: Diarrhea Last Admin: 01/10/24 01:42 Dose: 1 tab Donepezil HCl (Donepezil Hcl 5 Mg Tablet) 5 mg PO BEDTIME [facility] Last Admin: 01/22/24 20:49 Dose: 5 mg Escitalopram Oxalate (Escitalopram Oxalate 10 Mg Tablet) 10 mg PO DAILY [facility] Last Admin: 01/23/24 08:50 Dose: 10 mg Levothyroxine Sodium (Levothyroxine Sodium 88 Mcg Tablet) 88 mcg PO DAILY@0600 [facility] Last Admin: 01/23/24 06:55 Dose: 88 mcg Lidocaine (Lidocaine 4 % Patch Adh..Patch) 2 patch TRANSDERMA DAILY [facility]; Protocol Last Admin: 01/23/24 08:51 Dose: Not Given Loperamide HCl (Loperamide Hcl 2 Mg Capsule) 2 mg PO Q4H PRN PRN Reason: Loose Stool Lorazepam (Lorazepam 0.5 Mg Tablet) 0.5 mg PO DAILY PRN PRN Reason: anxiety Last Admin: 01/10/24 09:26 Dose: 0.5 mg Magnesium Hydroxide (Milk Of Magnesia 30 Ml Oral.Susp) 30 ml PO DAILY PRN PRN Reason: Constipation Memantine (Memantine Hcl 5 Mg Tablet) 5 mg PO DAILY [facility] Last Admin: 01/23/24 08:49 Dose: 5 mg Metformin HCl (Metformin Hcl Er 750 Mg Tab.Er.24h) 750 mg PO BEDTIME [facility] Last Admin: 01/22/24 20:49 Dose: 750 mg Pt Own (Cyclosporine ([Restasis] 1 Drop)) 1 drop EYE-BOTH BID [facility] Last Admin: 01/23/24 08:51 Dose: 1 drop Olanzapine (Olanzapine 2.5 Mg Tablet) 2.5 mg PO Q4H PRN PRN Reason: agitation/acute psychosis Simethicone (Simethicone 80 Mg Tab.Chew) 80 mg PO QIDWMHS PRN PRN Reason: bloating Last Admin: 01/22/24 20:49 Dose: 80 mg Sitagliptin Phosphate (Sitagliptin Phosphate 100 Mg Tablet) 100 mg PO DAILY [facility] Last Admin: 01/23/24 08:50 Dose: 100 mg Trazodone HCl (Trazodone Hcl 50 Mg Tablet) 50 mg PO BEDTIME MRX1 PRN PRN Reason: Insomnia Vitamin D (Cholecalciferol (Vitamin D3) 25 Mcg Tablet) 25 mcg PO DAILY [facility] Last Admin: 01/23/24 08:49 Dose: 25 mcg Zolpidem Tartrate (Zolpidem Tartrate 5 Mg Tablet) 5 mg PO BEDTIME [facility] Last Admin: 01/22/24 20:49 Dose: 5 mg Allergies Allergies Allergy/AdvReac Type Severity Reaction Status Date / Time codeine Allergy Unknown Verified 12/07/23 20:27 Assessment & Plan Assessment & Plan (1) Dementia with psychotic disturbance: Status: Acute Code(s): F03.92 - Unspecified dementia, unspecified severity, with psychotic disturbance Plan Mrs. Jin is a 83 year-old woman with hx of vascular dementia with delusions of having an affair and some paranoid delusions. Some insight that this may not be the case but pt very much believes and takes action based on delusion despite here reporting that it may not be happening. It is unclear report from [facility] as to suicidal ideation. no indication of imminent harm to self or others, but collateral information is pending from family. May consider antipsychotic. PLAN 1. Restart Namenda. 2. Rexulti was started and increase it to 0.5 p.o. b.i.d. at this point. We are discontinued it on December 18 since the patient has refused to take it and there is no evidence of assaultive behavior. 3. Information of healthcare proxy. 4. Reassessment with results. 5. Waiting for placement 6. Waiting for [facility] application clearance. Reason for continued inpatient stay Substantial Risk for: inability to function, rapid decompensation and med/psych decompensation Time Spent With Patient Time: Total time managing care of this patient today __20__ minutes.
[2024-01-23 20:04] VITALS: BP 132/65; PULSE 75; RESP 18; TEMP 36.1; O2SAT 99
[2024-01-23] MEDS: Atorvastatin Calcium 10 MG TABLET PO (20:05)
[2024-01-23] MEDS: Zolpidem Tartrate 5 MG TABLET PO (20:05)
[2024-01-23] MEDS: metFORMIN HCl ER 750 MG TAB.ER.24H PO (20:05)
[2024-01-23] MEDS: Donepezil HCl 5 MG TABLET PO (20:05)
[2024-01-23 20:34] LABS: Glucose, Whole Blood 134 mg/dL (60-115)
[2024-01-24] MEDS: Levothyroxine Sodium 88 MCG TABLET PO (05:56)
[2024-01-24] MEDS: Simethicone 80 MG TAB.CHEW PO ×2 (06:01→20:03)
[2024-01-24 06:03] LABS: Glucose, Whole Blood 114 mg/dL (60-115)
[2024-01-24 08:03] VITALS: BP 127/64; PULSE 64; RESP 18; TEMP 36.1; O2SAT 95
[2024-01-24] MEDS: CYCLOSPORINE 1 EACH EYE-BOTH ×2 (08:36→20:00)
[2024-01-24] MEDS: Memantine HCl 5 MG TABLET PO (08:36)
[2024-01-24] MEDS: amLODIPine Besylate 2.5 MG TABLET PO (08:37)
[2024-01-24] MEDS: Escitalopram Oxalate 10 MG TABLET PO (08:37)
[2024-01-24] MEDS: Cholecalciferol (Vitamin D3) 25 MCG TABLET PO (08:37)
[2024-01-24] MEDS: allopurinoL 100 MG TABLET PO (08:37)
[2024-01-24] MEDS: SITagliptin Phosphate 100 MG TABLET PO (08:38)
[2024-01-24] MEDS: Acetaminophen 325 MG TABLET 650 MG PO ×2 (09:05→20:03)
--- NOTE | 2024-01-24 14:55 | HO.PSYCHPN ---
Subjective Subjective Date of Service: 01/24/24 Reason For Visit: psychosis Subjective Notes: Conditional Voluntary Interim History: The nursing staff reported the patient has been compliant with treatment, she slept 8 hours. On interview the patient complained that at night the nurse woke her up and she was not pleased. Waiting for placement. Mental Status Exam Mental Status Exam Patient Appearance: Appropriate Patient Orientation: Person and Situation Level of Consciousness: Awake and Appropriate Patient Behavior: Guarded and Passive Mood Description: Calm Affect Description: Constricted Patient Cognition Impaired: Yes Ability to Follow Directions: Good Speech Pattern: Clear Hallucinations: None Delusions: Not Present Thought Process: Distracted and Slowed Thinking Thought Content: positive for [place] and positive for Poverty of Content Judgement: Fair Diagnostics Vital Signs (24Hr): Vital Signs - 24 hr 01/23/24 20:04 01/24/24 08:03 Temperature 97 F 96.9 F Pulse Rate 75 64 Respiratory Rate 18 18 Blood Pressure 132/65 127/64 Pulse Oximetry 99 95 Oxygen Delivery Method Room Air Room Air BMI result Body Mass Index 30.5 Labs 01/06/24 07:28 01/20/24 08:35 Labs: Laboratory Results - last 48 hr 01/22/24 01/23/24 01/23/24 19:41 06:56 20:28 POC Glucose 202 H 102 134 H 01/24/24 05:59 POC Glucose 114 Medications Medications Current Medications Acetaminophen (Acetaminophen 325 Mg Tablet) 650 mg PO Q6H PRN PRN Reason: Headache/Pain Mild Scale (1-3) Last Admin: 01/24/24 09:05 Dose: 650 mg Al Hydroxide/Mg Hydroxide (Magnesium Hydrox/Alum Hydrox 30 Ml Oral.Susp) 30 ml PO Q6H PRN PRN Reason: Heartburn/Nausea Allopurinol (Allopurinol 100 Mg Tablet) 100 mg PO DAILY [facility] Last Admin: 01/24/24 08:37 Dose: 100 mg Amlodipine Besylate (Amlodipine Besylate 2.5 Mg Tablet) 2.5 mg PO DAILY [facility]; Protocol Last Admin: 01/24/24 08:37 Dose: 2.5 mg Artificial Tears (Artificial Tears 15 Ml Drops) 2 drop EYE-BOTH Q4H PRN PRN Reason: Dry Eyes Last Admin: 01/10/24 09:25 Dose: 2 drop Atorvastatin Calcium (Atorvastatin Calcium 10 Mg Tablet) 10 mg PO BEDTIME [facility] Last Admin: 01/23/24 20:05 Dose: 10 mg Cyclobenzaprine HCl (Cyclobenzaprine Hcl 5 Mg Tablet) 5 mg PO TID PRN PRN Reason: back spasm Last Admin: 01/18/24 11:39 Dose: 5 mg Diphenoxylate HCl/Atropine (Diphenoxylate/Atrop 2.5/0.025 Tablet) 1 tab PO DAILY PRN PRN Reason: Diarrhea Last Admin: 01/10/24 01:42 Dose: 1 tab Donepezil HCl (Donepezil Hcl 5 Mg Tablet) 5 mg PO BEDTIME [facility] Last Admin: 01/23/24 20:05 Dose: 5 mg Escitalopram Oxalate (Escitalopram Oxalate 10 Mg Tablet) 10 mg PO DAILY [facility] Last Admin: 01/24/24 08:37 Dose: 10 mg Levothyroxine Sodium (Levothyroxine Sodium 88 Mcg Tablet) 88 mcg PO DAILY@0600 [facility] Last Admin: 01/24/24 05:56 Dose: 88 mcg Lidocaine (Lidocaine 4 % Patch Adh..Patch) 2 patch TRANSDERMA DAILY [facility]; Protocol Last Admin: 01/24/24 10:08 Dose: Not Given Loperamide HCl (Loperamide Hcl 2 Mg Capsule) 2 mg PO Q4H PRN PRN Reason: Loose Stool Lorazepam (Lorazepam 0.5 Mg Tablet) 0.5 mg PO DAILY PRN PRN Reason: anxiety Last Admin: 01/10/24 09:26 Dose: 0.5 mg Magnesium Hydroxide (Milk Of Magnesia 30 Ml Oral.Susp) 30 ml PO DAILY PRN PRN Reason: Constipation Memantine (Memantine Hcl 5 Mg Tablet) 5 mg PO DAILY [facility] Last Admin: 01/24/24 08:36 Dose: 5 mg Metformin HCl (Metformin Hcl Er 750 Mg Tab.Er.24h) 750 mg PO BEDTIME [facility] Last Admin: 01/23/24 20:05 Dose: 750 mg Pt Own (Cyclosporine ([Restasis] 1 Drop)) 1 drop EYE-BOTH BID [facility] Last Admin: 01/24/24 08:36 Dose: 1 drop Olanzapine (Olanzapine 2.5 Mg Tablet) 2.5 mg PO Q4H PRN PRN Reason: agitation/acute psychosis Simethicone (Simethicone 80 Mg Tab.Chew) 80 mg PO QIDWMHS PRN PRN Reason: bloating Last Admin: 01/24/24 06:01 Dose: 80 mg Sitagliptin Phosphate (Sitagliptin Phosphate 100 Mg Tablet) 100 mg PO DAILY [facility] Last Admin: 01/24/24 08:38 Dose: 100 mg Trazodone HCl (Trazodone Hcl 50 Mg Tablet) 50 mg PO BEDTIME MRX1 PRN PRN Reason: Insomnia Vitamin D (Cholecalciferol (Vitamin D3) 25 Mcg Tablet) 25 mcg PO DAILY [facility] Last Admin: 01/24/24 08:37 Dose: 25 mcg Zolpidem Tartrate (Zolpidem Tartrate 5 Mg Tablet) 5 mg PO BEDTIME [facility] Last Admin: 01/23/24 20:05 Dose: 5 mg Allergies Allergies Allergy/AdvReac Type Severity Reaction Status Date / Time codeine Allergy Unknown Verified 12/07/23 20:27 Assessment & Plan Assessment & Plan (1) Dementia with psychotic disturbance: Status: Acute Code(s): F03.92 - Unspecified dementia, unspecified severity, with psychotic disturbance Plan Mrs. Jin is a 83 year-old woman with hx of vascular dementia with delusions of having an affair and some paranoid delusions. Some insight that this may not be the case but pt very much believes and takes action based on delusion despite here reporting that it may not be happening. It is unclear report from [facility] as to suicidal ideation. no indication of imminent harm to self or others, but collateral information is pending from family. May consider antipsychotic. PLAN 1. Restart Namenda. 2. Rexulti was started and increase it to 0.5 p.o. b.i.d. at this point. We are discontinued it on December 18 since the patient has refused to take it and there is no evidence of assaultive behavior. 3. Information of healthcare proxy. 4. Reassessment with results. 5. Waiting for placement 6. Waiting for [facility] application clearance. Reason for continued inpatient stay Substantial Risk for: inability to function, rapid decompensation and med/psych decompensation Time Spent With Patient Time: Total time managing care of this patient today __20__ minutes.
[2024-01-24 19:48] LABS: Glucose, Whole Blood 199 mg/dL (60-115)
[2024-01-24 19:58] VITALS: BP 157/71; PULSE 81; RESP 16; TEMP 36.6; O2SAT 97
[2024-01-24] MEDS: metFORMIN HCl ER 750 MG TAB.ER.24H PO (19:59)
[2024-01-24] MEDS: Atorvastatin Calcium 10 MG TABLET PO (20:00)
[2024-01-24] MEDS: Zolpidem Tartrate 5 MG TABLET PO (20:00)
[2024-01-24] MEDS: Donepezil HCl 5 MG TABLET PO (20:00)
[2024-01-25] MEDS: Levothyroxine Sodium 88 MCG TABLET PO (05:19)
[2024-01-25 05:29] LABS: Glucose, Whole Blood 87 mg/dL (60-115)
[2024-01-25 08:00] VITALS: BP 164/72; PULSE 65; RESP 17; TEMP 36.1; O2SAT 98
[2024-01-25] MEDS: Memantine HCl 5 MG TABLET PO (08:24)
[2024-01-25] MEDS: SITagliptin Phosphate 100 MG TABLET PO (08:24)
[2024-01-25] MEDS: amLODIPine Besylate 2.5 MG TABLET PO (08:24)
[2024-01-25] MEDS: allopurinoL 100 MG TABLET PO (08:24)
[2024-01-25] MEDS: Escitalopram Oxalate 10 MG TABLET PO (08:24)
[2024-01-25] MEDS: Cholecalciferol (Vitamin D3) 25 MCG TABLET PO (08:24)
[2024-01-25] MEDS: CYCLOSPORINE 1 EACH EYE-BOTH ×2 (08:26→20:57)
[2024-01-25] MEDS: Simethicone 80 MG TAB.CHEW PO ×2 (08:30→21:02)
[2024-01-25] MEDS: Acetaminophen 325 MG TABLET 650 MG PO ×2 (08:30→21:02)
[2024-01-25 10:42] VITALS: BMI 30.6
--- NOTE | 2024-01-25 15:59 | P.PNPSI_ITS ---
Subjective Subjective Date of Service: 01/25/24 Reason For Visit: psychosis Subjective Notes: Conditional Voluntary Interim History: The nursing staff reported no changes in her mental status fully compliant with treatment. On interview the patient denies new symptoms, waiting for placement. Mental Status Exam Mental Status Exam Patient Appearance: Appropriate Patient Orientation: Person and Situation Level of Consciousness: Awake and Appropriate Patient Behavior: Guarded and Passive Mood Description: Withdrawn Affect Description: Constricted Patient Cognition Impaired: Yes Ability to Follow Directions: Good Speech Pattern: Clear Hallucinations: None Delusions: Not Present Thought Process: Distracted and Slowed Thinking Thought Content: positive for [place] and positive for Poverty of Content Judgement: Fair Diagnostics Vital Signs (24Hr): Vital Signs - 24 hr 01/24/24 19:58 01/25/24 08:00 Temperature 97.8 F 96.9 F Pulse Rate 81 65 Respiratory Rate 16 17 Blood Pressure 157/71 H 164/72 H Pulse Oximetry 97 98 Oxygen Delivery Method Room Air Room Air BMI result Body Mass Index 30.6 Labs 01/06/24 07:28 01/20/24 08:35 Labs: Laboratory Results - last 48 hr 01/23/24 01/24/24 01/24/24 20:28 05:59 19:30 POC Glucose 134 H 114 199 H 01/25/24 05:21 POC Glucose 87 Medications Medications Current Medications Acetaminophen (Acetaminophen 325 Mg Tablet) 650 mg PO Q6H PRN PRN Reason: Headache/Pain Mild Scale (1-3) Last Admin: 01/25/24 08:30 Dose: 650 mg Al Hydroxide/Mg Hydroxide (Magnesium Hydrox/Alum Hydrox 30 Ml Oral.Susp) 30 ml PO Q6H PRN PRN Reason: Heartburn/Nausea Allopurinol (Allopurinol 100 Mg Tablet) 100 mg PO DAILY [facility] Last Admin: 01/25/24 08:24 Dose: 100 mg Amlodipine Besylate (Amlodipine Besylate 2.5 Mg Tablet) 2.5 mg PO DAILY [facility]; Protocol Last Admin: 01/25/24 08:24 Dose: 2.5 mg Artificial Tears (Artificial Tears 15 Ml Drops) 2 drop EYE-BOTH Q4H PRN PRN Reason: Dry Eyes Last Admin: 01/10/24 09:25 Dose: 2 drop Atorvastatin Calcium (Atorvastatin Calcium 10 Mg Tablet) 10 mg PO BEDTIME [facility] Last Admin: 01/24/24 20:00 Dose: 10 mg Cyclobenzaprine HCl (Cyclobenzaprine Hcl 5 Mg Tablet) 5 mg PO TID PRN PRN Reason: back spasm Last Admin: 01/18/24 11:39 Dose: 5 mg Diphenoxylate HCl/Atropine (Diphenoxylate/Atrop 2.5/0.025 Tablet) 1 tab PO DAILY PRN PRN Reason: Diarrhea Last Admin: 01/10/24 01:42 Dose: 1 tab Donepezil HCl (Donepezil Hcl 5 Mg Tablet) 5 mg PO BEDTIME [facility] Last Admin: 01/24/24 20:00 Dose: 5 mg Escitalopram Oxalate (Escitalopram Oxalate 10 Mg Tablet) 10 mg PO DAILY [facility] Last Admin: 01/25/24 08:24 Dose: 10 mg Levothyroxine Sodium (Levothyroxine Sodium 88 Mcg Tablet) 88 mcg PO DAILY@0600 [facility] Last Admin: 01/25/24 05:19 Dose: 88 mcg Lidocaine (Lidocaine 4 % Patch Adh..Patch) 2 patch TRANSDERMA DAILY [facility]; Protocol Last Admin: 01/25/24 08:27 Dose: Not Given Loperamide HCl (Loperamide Hcl 2 Mg Capsule) 2 mg PO Q4H PRN PRN Reason: Loose Stool Lorazepam (Lorazepam 0.5 Mg Tablet) 0.5 mg PO DAILY PRN PRN Reason: anxiety Last Admin: 01/10/24 09:26 Dose: 0.5 mg Magnesium Hydroxide (Milk Of Magnesia 30 Ml Oral.Susp) 30 ml PO DAILY PRN PRN Reason: Constipation Memantine (Memantine Hcl 5 Mg Tablet) 5 mg PO DAILY [facility] Last Admin: 01/25/24 08:24 Dose: 5 mg Metformin HCl (Metformin Hcl Er 750 Mg Tab.Er.24h) 750 mg PO BEDTIME [facility] Last Admin: 01/24/24 19:59 Dose: 750 mg Pt Own (Cyclosporine ([Restasis] 1 Drop)) 1 drop EYE-BOTH BID [facility] Last Admin: 01/25/24 08:26 Dose: 1 drop Olanzapine (Olanzapine 2.5 Mg Tablet) 2.5 mg PO Q4H PRN PRN Reason: agitation/acute psychosis Simethicone (Simethicone 80 Mg Tab.Chew) 80 mg PO QIDWMHS PRN PRN Reason: bloating Last Admin: 01/25/24 08:30 Dose: 80 mg Sitagliptin Phosphate (Sitagliptin Phosphate 100 Mg Tablet) 100 mg PO DAILY [facility] Last Admin: 01/25/24 08:24 Dose: 100 mg Trazodone HCl (Trazodone Hcl 50 Mg Tablet) 50 mg PO BEDTIME MRX1 PRN PRN Reason: Insomnia Vitamin D (Cholecalciferol (Vitamin D3) 25 Mcg Tablet) 25 mcg PO DAILY [facility] Last Admin: 01/25/24 08:24 Dose: 25 mcg Zolpidem Tartrate (Zolpidem Tartrate 5 Mg Tablet) 5 mg PO BEDTIME [facility] Last Admin: 01/24/24 20:00 Dose: 5 mg Allergies Allergies Allergy/AdvReac Type Severity Reaction Status Date / Time codeine Allergy Unknown Verified 12/07/23 20:27 Assessment & Plan Assessment & Plan (1) Dementia with psychotic disturbance: Status: Acute Code(s): F03.92 - Unspecified dementia, unspecified severity, with psychotic disturbance Plan Mrs. Jin is a 83 year-old woman with hx of vascular dementia with delusions of having an affair and some paranoid delusions. Some insight that this may not be the case but pt very much believes and takes action based on delusion despite here reporting that it may not be happening. It is unclear report from [facility] as to suicidal ideation. no indication of imminent harm to self or others, but collateral information is pending from family. May consider antipsychotic. PLAN 1. Restart Namenda. 2. Rexulti was started and increase it to 0.5 p.o. b.i.d. at this point. We are discontinued it on December 18 since the patient has refused to take it and there is no evidence of assaultive behavior. 3. Information of healthcare proxy. 4. Reassessment with results. 5. Waiting for placement 6. Waiting for [facility] application clearance. Reason for continued inpatient stay Substantial Risk for: inability to function, rapid decompensation and med/psych decompensation Time Spent With Patient Time: Total time managing care of this patient today __20__ minutes.
[2024-01-25 20:00] VITALS: BP 117/70; PULSE 90; RESP 16; TEMP 36.8; O2SAT 95
[2024-01-25] MEDS: Zolpidem Tartrate 5 MG TABLET PO (20:57)
[2024-01-25] MEDS: Donepezil HCl 5 MG TABLET PO (20:57)
[2024-01-25] MEDS: Atorvastatin Calcium 10 MG TABLET PO (20:57)
[2024-01-25] MEDS: metFORMIN HCl ER 750 MG TAB.ER.24H PO (20:57)
[2024-01-25 21:12] LABS: Glucose, Whole Blood 186 mg/dL (60-115)
[2024-01-26] MEDS: Levothyroxine Sodium 88 MCG TABLET PO (06:24)
[2024-01-26 06:44] LABS: Glucose, Whole Blood 119 mg/dL (60-115)
[2024-01-26 08:00] VITALS: BP 140/59; PULSE 62; RESP 17; TEMP 36; O2SAT 99
[2024-01-26] MEDS: allopurinoL 100 MG TABLET PO (08:17)
[2024-01-26] MEDS: amLODIPine Besylate 2.5 MG TABLET PO (08:17)
[2024-01-26] MEDS: SITagliptin Phosphate 100 MG TABLET PO (08:17)
[2024-01-26] MEDS: Escitalopram Oxalate 10 MG TABLET PO (08:17)
[2024-01-26] MEDS: CYCLOSPORINE 1 EACH EYE-BOTH ×2 (08:17→20:47)
[2024-01-26] MEDS: Memantine HCl 5 MG TABLET PO (08:17)
[2024-01-26] MEDS: Cholecalciferol (Vitamin D3) 25 MCG TABLET PO (08:17)
[2024-01-26] MEDS: Acetaminophen 325 MG TABLET 650 MG PO ×2 (09:19→20:47)
[2024-01-26] MEDS: Simethicone 80 MG TAB.CHEW PO ×2 (09:19→20:47)
--- NOTE | 2024-01-26 15:15 | HO.PSYCHPN ---
Subjective Subjective Date of Service: 01/26/24 Reason For Visit: psychosis Subjective Notes: Conditional Voluntary Interim History: The nursing staff reported the patient had been compliant with treatment, no changes in her mental status she slept 6 hours. The social media sr strategy manager reported that she is waiting for financial clearance for transfer. Her [facility] application has been started. On interview the patient denies new symptoms, waiting for placement. Mental Status Exam Mental Status Exam Patient Appearance: Appropriate Patient Orientation: Person and Situation Level of Consciousness: Awake and Appropriate Patient Behavior: Guarded and Passive Mood Description: Withdrawn Affect Description: Constricted Patient Cognition Impaired: Yes Ability to Follow Directions: Good Speech Pattern: Clear Hallucinations: None Delusions: Not Present Thought Process: Distracted and Slowed Thinking Thought Content: positive for [place] and positive for Poverty of Content Judgement: Fair Diagnostics Vital Signs (24Hr): Vital Signs - 24 hr 01/25/24 20:00 01/26/24 08:00 Temperature 98.2 F 96.8 F Pulse Rate 90 62 Respiratory Rate 16 17 Blood Pressure 117/70 140/59 H Pulse Oximetry 95 99 Oxygen Delivery Method Room Air Room Air BMI result Body Mass Index 30.6 Labs 01/06/24 07:28 01/20/24 08:35 Labs: Laboratory Results - last 48 hr 01/24/24 01/25/24 01/25/24 19:30 05:21 20:55 POC Glucose 199 H 87 186 H 01/26/24 06:29 POC Glucose 119 H Medications Medications Current Medications Acetaminophen (Acetaminophen 325 Mg Tablet) 650 mg PO Q6H PRN PRN Reason: Headache/Pain Mild Scale (1-3) Last Admin: 01/26/24 09:19 Dose: 650 mg Al Hydroxide/Mg Hydroxide (Magnesium Hydrox/Alum Hydrox 30 Ml Oral.Susp) 30 ml PO Q6H PRN PRN Reason: Heartburn/Nausea Allopurinol (Allopurinol 100 Mg Tablet) 100 mg PO DAILY [facility] Last Admin: 01/26/24 08:17 Dose: 100 mg Amlodipine Besylate (Amlodipine Besylate 2.5 Mg Tablet) 2.5 mg PO DAILY [facility]; Protocol Last Admin: 01/26/24 08:17 Dose: 2.5 mg Artificial Tears (Artificial Tears 15 Ml Drops) 2 drop EYE-BOTH Q4H PRN PRN Reason: Dry Eyes Last Admin: 01/10/24 09:25 Dose: 2 drop Atorvastatin Calcium (Atorvastatin Calcium 10 Mg Tablet) 10 mg PO BEDTIME [facility] Last Admin: 01/25/24 20:57 Dose: 10 mg Cyclobenzaprine HCl (Cyclobenzaprine Hcl 5 Mg Tablet) 5 mg PO TID PRN PRN Reason: back spasm Last Admin: 01/18/24 11:39 Dose: 5 mg Diphenoxylate HCl/Atropine (Diphenoxylate/Atrop 2.5/0.025 Tablet) 1 tab PO DAILY PRN PRN Reason: Diarrhea Last Admin: 01/10/24 01:42 Dose: 1 tab Donepezil HCl (Donepezil Hcl 5 Mg Tablet) 5 mg PO BEDTIME [facility] Last Admin: 01/25/24 20:57 Dose: 5 mg Escitalopram Oxalate (Escitalopram Oxalate 10 Mg Tablet) 10 mg PO DAILY [facility] Last Admin: 01/26/24 08:17 Dose: 10 mg Levothyroxine Sodium (Levothyroxine Sodium 88 Mcg Tablet) 88 mcg PO DAILY@0600 [facility] Last Admin: 01/26/24 06:24 Dose: 88 mcg Lidocaine (Lidocaine 4 % Patch Adh..Patch) 2 patch TRANSDERMA DAILY [facility]; Protocol Last Admin: 01/26/24 08:19 Dose: Not Given Loperamide HCl (Loperamide Hcl 2 Mg Capsule) 2 mg PO Q4H PRN PRN Reason: Loose Stool Lorazepam (Lorazepam 0.5 Mg Tablet) 0.5 mg PO DAILY PRN PRN Reason: anxiety Last Admin: 01/10/24 09:26 Dose: 0.5 mg Magnesium Hydroxide (Milk Of Magnesia 30 Ml Oral.Susp) 30 ml PO DAILY PRN PRN Reason: Constipation Memantine (Memantine Hcl 5 Mg Tablet) 5 mg PO DAILY [facility] Last Admin: 01/26/24 08:17 Dose: 5 mg Metformin HCl (Metformin Hcl Er 750 Mg Tab.Er.24h) 750 mg PO BEDTIME [facility] Last Admin: 01/25/24 20:57 Dose: 750 mg Pt Own (Cyclosporine ([Restasis] 1 Drop)) 1 drop EYE-BOTH BID [facility] Last Admin: 01/26/24 08:17 Dose: 1 drop Olanzapine (Olanzapine 2.5 Mg Tablet) 2.5 mg PO Q4H PRN PRN Reason: agitation/acute psychosis Simethicone (Simethicone 80 Mg Tab.Chew) 80 mg PO QIDWMHS PRN PRN Reason: bloating Last Admin: 01/26/24 09:19 Dose: 80 mg Sitagliptin Phosphate (Sitagliptin Phosphate 100 Mg Tablet) 100 mg PO DAILY [facility] Last Admin: 01/26/24 08:17 Dose: 100 mg Trazodone HCl (Trazodone Hcl 50 Mg Tablet) 50 mg PO BEDTIME MRX1 PRN PRN Reason: Insomnia Vitamin D (Cholecalciferol (Vitamin D3) 25 Mcg Tablet) 25 mcg PO DAILY [facility] Last Admin: 01/26/24 08:17 Dose: 25 mcg Zolpidem Tartrate (Zolpidem Tartrate 5 Mg Tablet) 5 mg PO BEDTIME [facility] Last Admin: 01/25/24 20:57 Dose: 5 mg Allergies Allergies Allergy/AdvReac Type Severity Reaction Status Date / Time codeine Allergy Unknown Verified 12/07/23 20:27 Assessment & Plan Assessment & Plan (1) Dementia with psychotic disturbance: Status: Acute Code(s): F03.92 - Unspecified dementia, unspecified severity, with psychotic disturbance Plan Mrs. Jin is a 83 year-old woman with hx of vascular dementia with delusions of having an affair and some paranoid delusions. Some insight that this may not be the case but pt very much believes and takes action based on delusion despite here reporting that it may not be happening. It is unclear report from [facility] as to suicidal ideation. no indication of imminent harm to self or others, but collateral information is pending from family. May consider antipsychotic. PLAN 1. Restart Namenda. 2. Rexulti was started and increase it to 0.5 p.o. b.i.d. at this point. We are discontinued it on December 18 since the patient has refused to take it and there is no evidence of assaultive behavior. 3. Information of healthcare proxy. 4. Reassessment with results. 5. Waiting for placement 6. Waiting for [facility] application clearance. Reason for continued inpatient stay Substantial Risk for: inability to function, rapid decompensation and med/psych decompensation Time Spent With Patient Time: Total time managing care of this patient today __20__ minutes.
[2024-01-26 20:00] VITALS: BP 124/59; PULSE 69; RESP 18; TEMP 36.3; O2SAT 97
[2024-01-26] MEDS: Donepezil HCl 5 MG TABLET PO (20:47)
[2024-01-26] MEDS: Zolpidem Tartrate 5 MG TABLET PO (20:47)
[2024-01-26] MEDS: metFORMIN HCl ER 750 MG TAB.ER.24H PO (20:47)
[2024-01-26] MEDS: Atorvastatin Calcium 10 MG TABLET PO (20:47)
[2024-01-26 21:06] LABS: Glucose, Whole Blood 152 mg/dL (60-115)
[2024-01-27] MEDS: Levothyroxine Sodium 88 MCG TABLET PO (06:14)
[2024-01-27] MEDS: Diphenoxylate/Atrop 2.5/0.025 TABLET 1 TAB PO (06:14)
[2024-01-27 06:50] LABS: Glucose, Whole Blood 110 mg/dL (60-115)
[2024-01-27 08:00] VITALS: BP 179/74; PULSE 62; RESP 18; TEMP 36.9; O2SAT 98
[2024-01-27] MEDS: Memantine HCl 5 MG TABLET PO (08:30)
[2024-01-27] MEDS: amLODIPine Besylate 2.5 MG TABLET PO (08:30)
[2024-01-27] MEDS: Cholecalciferol (Vitamin D3) 25 MCG TABLET PO (08:31)
[2024-01-27] MEDS: allopurinoL 100 MG TABLET PO (08:31)
[2024-01-27] MEDS: SITagliptin Phosphate 100 MG TABLET PO (08:32)
[2024-01-27] MEDS: Escitalopram Oxalate 10 MG TABLET PO (08:32)
[2024-01-27] MEDS: CYCLOSPORINE 1 EACH EYE-BOTH ×2 (08:34→20:08)
[2024-01-27] MEDS: Acetaminophen 325 MG TABLET 650 MG PO ×2 (08:36→20:07)
[2024-01-27] MEDS: LORazepam 0.5 MG TABLET PO (08:40)
[2024-01-27 09:04] LABS: Creatinine Clr Calc Pharmacy 41.3; Estimated Glomerular Filt Rate 48
--- NOTE | 2024-01-27 15:08 | HO.PSYCHPN ---
Subjective Subjective Date of Service: 01/27/24 Reason For Visit: psychosis Interim History: Met with patient; discussed with team Reports that her mood is better however she is struggling with sleep because of her roommate who is manic and talking nonstop. Mental Status Exam Mental Status Exam Patient Appearance: Appropriate Patient Orientation: Person and Situation Level of Consciousness: Awake and Appropriate Patient Behavior: Guarded and Passive Mood Description: Withdrawn Affect Description: Constricted Patient Cognition Impaired: Yes Ability to Follow Directions: Good Speech Pattern: Clear Hallucinations: None Delusions: Not Present Thought Process: Distracted and Slowed Thinking Thought Content: positive for [place] and positive for Poverty of Content Judgement: Fair Diagnostics Vital Signs (24Hr): Vital Signs - 24 hr 01/26/24 20:00 01/27/24 08:00 Temperature 97.3 F 98.4 F Pulse Rate 69 62 Respiratory Rate 18 18 Blood Pressure 124/59 L 179/74 H Pulse Oximetry 97 98 Oxygen Delivery Method Room Air Room Air BMI result Body Mass Index 30.6 Labs 01/06/24 07:28 02/03/24 08:03 Labs: Laboratory Results - last 48 hr 01/25/24 01/26/24 01/26/24 20:55 06:29 21:00 Hold Purple Top Creatinine Estim Creat Clear Calc Estimated GFR POC Glucose 186 H 119 H 152 H 01/27/24 01/27/24 06:40 08:42 Hold Purple Top SEE NOTE Creatinine 1.08 Estim Creat Clear Calc 41.3 Estimated GFR 48 POC Glucose 110 Medications Medications Current Medications Acetaminophen (Acetaminophen 325 Mg Tablet) 650 mg PO Q6H PRN PRN Reason: Headache/Pain Mild Scale (1-3) Last Admin: 01/27/24 08:36 Dose: 650 mg Al Hydroxide/Mg Hydroxide (Magnesium Hydrox/Alum Hydrox 30 Ml Oral.Susp) 30 ml PO Q6H PRN PRN Reason: Heartburn/Nausea Allopurinol (Allopurinol 100 Mg Tablet) 100 mg PO DAILY [facility] Last Admin: 01/27/24 08:31 Dose: 100 mg Amlodipine Besylate (Amlodipine Besylate 2.5 Mg Tablet) 2.5 mg PO DAILY [facility]; Protocol Last Admin: 01/27/24 08:30 Dose: 2.5 mg Artificial Tears (Artificial Tears 15 Ml Drops) 2 drop EYE-BOTH Q4H PRN PRN Reason: Dry Eyes Last Admin: 01/10/24 09:25 Dose: 2 drop Atorvastatin Calcium (Atorvastatin Calcium 10 Mg Tablet) 10 mg PO BEDTIME [facility] Last Admin: 01/26/24 20:47 Dose: 10 mg Cyclobenzaprine HCl (Cyclobenzaprine Hcl 5 Mg Tablet) 5 mg PO TID PRN PRN Reason: back spasm Last Admin: 01/18/24 11:39 Dose: 5 mg Diphenoxylate HCl/Atropine (Diphenoxylate/Atrop 2.5/0.025 Tablet) 1 tab PO DAILY PRN PRN Reason: Diarrhea Last Admin: 01/27/24 06:14 Dose: 1 tab Donepezil HCl (Donepezil Hcl 5 Mg Tablet) 5 mg PO BEDTIME [facility] Last Admin: 01/26/24 20:47 Dose: 5 mg Escitalopram Oxalate (Escitalopram Oxalate 10 Mg Tablet) 10 mg PO DAILY [facility] Last Admin: 01/27/24 08:32 Dose: 10 mg Levothyroxine Sodium (Levothyroxine Sodium 88 Mcg Tablet) 88 mcg PO DAILY@0600 [facility] Last Admin: 01/27/24 06:14 Dose: 88 mcg Lidocaine (Lidocaine 4 % Patch Adh..Patch) 2 patch TRANSDERMA DAILY [facility]; Protocol Last Admin: 01/27/24 08:44 Dose: Not Given Loperamide HCl (Loperamide Hcl 2 Mg Capsule) 2 mg PO Q4H PRN PRN Reason: Loose Stool Lorazepam (Lorazepam 0.5 Mg Tablet) 0.5 mg PO DAILY PRN PRN Reason: anxiety Last Admin: 01/27/24 08:40 Dose: 0.5 mg Magnesium Hydroxide (Milk Of Magnesia 30 Ml Oral.Susp) 30 ml PO DAILY PRN PRN Reason: Constipation Memantine (Memantine Hcl 5 Mg Tablet) 5 mg PO DAILY [facility] Last Admin: 01/27/24 08:30 Dose: 5 mg Metformin HCl (Metformin Hcl Er 750 Mg Tab.Er.24h) 750 mg PO BEDTIME [facility] Last Admin: 01/26/24 20:47 Dose: 750 mg Pt Own (Cyclosporine ([Restasis] 1 Drop)) 1 drop EYE-BOTH BID [facility] Last Admin: 01/27/24 08:34 Dose: 1 drop Olanzapine (Olanzapine 2.5 Mg Tablet) 2.5 mg PO Q4H PRN PRN Reason: agitation/acute psychosis Simethicone (Simethicone 80 Mg Tab.Chew) 80 mg PO QIDWMHS PRN PRN Reason: bloating Last Admin: 01/26/24 20:47 Dose: 80 mg Sitagliptin Phosphate (Sitagliptin Phosphate 100 Mg Tablet) 100 mg PO DAILY [facility] Last Admin: 01/27/24 08:32 Dose: 100 mg Trazodone HCl (Trazodone Hcl 50 Mg Tablet) 50 mg PO BEDTIME MRX1 PRN PRN Reason: Insomnia Vitamin D (Cholecalciferol (Vitamin D3) 25 Mcg Tablet) 25 mcg PO DAILY [facility] Last Admin: 01/27/24 08:31 Dose: 25 mcg Zolpidem Tartrate (Zolpidem Tartrate 5 Mg Tablet) 5 mg PO BEDTIME [facility] Last Admin: 01/26/24 20:47 Dose: 5 mg Allergies Allergies Allergy/AdvReac Type Severity Reaction Status Date / Time codeine Allergy Unknown Verified 12/07/23 20:27 Assessment & Plan Assessment & Plan (1) Dementia with psychotic disturbance: Status: Acute Code(s): F03.92 - Unspecified dementia, unspecified severity, with psychotic disturbance Plan Mrs. Jin is a 83 year-old woman with hx of vascular dementia with delusions of having an affair and some paranoid delusions. Some insight that this may not be the case but pt very much believes and takes action based on delusion despite here reporting that it may not be happening. It is unclear report from [facility] as to suicidal ideation. no indication of imminent harm to self or others, but collateral information is pending from family. May consider antipsychotic. PLAN 1. Restart Namenda. 2. Rexulti was started and increase it to 0.5 p.o. b.i.d. at this point. We are discontinued it on December 18 since the patient has refused to take it and there is no evidence of assaultive behavior. 3. Information of healthcare proxy. 4. Reassessment with results. 5. Waiting for placement 6. Waiting for [facility] application clearance. Patient educated on: diagnosis and therapeutic strategies Informed Consent: understands Reason for continued inpatient stay Substantial Risk for: rapid decompensation and med/psych decompensation Time Spent With Patient Time: Total time managing care of this patient today ____ minutes.
[2024-01-27 20:00] VITALS: BP 123/70; PULSE 94; RESP 18; TEMP 36.2; O2SAT 95
[2024-01-27] MEDS: Zolpidem Tartrate 5 MG TABLET PO (20:07)
[2024-01-27] MEDS: Donepezil HCl 5 MG TABLET PO (20:07)
[2024-01-27] MEDS: metFORMIN HCl ER 750 MG TAB.ER.24H PO (20:07)
[2024-01-27] MEDS: Simethicone 80 MG TAB.CHEW PO (20:07)
[2024-01-27] MEDS: Atorvastatin Calcium 10 MG TABLET PO (20:07)
[2024-01-27 20:19] LABS: Glucose, Whole Blood 189 mg/dL (60-115)
[2024-01-28] MEDS: Levothyroxine Sodium 88 MCG TABLET PO (06:00)
[2024-01-28 06:53] LABS: Glucose, Whole Blood 98 mg/dL (60-115)
[2024-01-28 09:25] VITALS: BP 149/67; PULSE 71; RESP 18; TEMP 36.5; O2SAT 94
[2024-01-28] MEDS: amLODIPine Besylate 2.5 MG TABLET PO (09:32)
[2024-01-28] MEDS: CYCLOSPORINE 1 EACH EYE-BOTH ×2 (09:32→20:15)
[2024-01-28] MEDS: SITagliptin Phosphate 100 MG TABLET PO (09:32)
[2024-01-28] MEDS: Memantine HCl 5 MG TABLET PO (09:32)
[2024-01-28] MEDS: Escitalopram Oxalate 10 MG TABLET PO (09:32)
[2024-01-28] MEDS: Acetaminophen 325 MG TABLET 650 MG PO ×2 (09:32→20:16)
[2024-01-28] MEDS: Cholecalciferol (Vitamin D3) 25 MCG TABLET PO (09:32)
[2024-01-28] MEDS: Simethicone 80 MG TAB.CHEW PO ×2 (09:32→20:16)
[2024-01-28] MEDS: allopurinoL 100 MG TABLET PO (09:40)
--- NOTE | 2024-01-28 16:49 | HO.PSYCHPN ---
Subjective Subjective Date of Service: 01/28/24 Reason For Visit: psychosis Interim History: Met with patient; discussed with team Patient reports remains in good mood and that she actually slept last night since her roommate was less manic and slept as well Mental Status Exam Mental Status Exam Patient Appearance: Appropriate Patient Orientation: Person and Situation Level of Consciousness: Awake and Appropriate Patient Behavior: Guarded and Passive Mood Description: Withdrawn Affect Description: Constricted Patient Cognition Impaired: Yes Ability to Follow Directions: Good Speech Pattern: Clear Hallucinations: None Delusions: Not Present Thought Process: Distracted and Slowed Thinking Thought Content: positive for [place] and positive for Poverty of Content Judgement: Fair Diagnostics Vital Signs (24Hr): Vital Signs - 24 hr 01/27/24 20:00 01/28/24 09:25 Temperature 97.1 F 97.7 F Pulse Rate 94 71 Respiratory Rate 18 18 Blood Pressure 123/70 149/67 H Pulse Oximetry 95 94 Oxygen Delivery Method Room Air Room Air BMI result Body Mass Index 30.6 Labs 01/06/24 07:28 02/03/24 08:03 Labs: Laboratory Results - last 48 hr 01/26/24 01/27/24 01/27/24 21:00 06:40 08:42 Hold Purple Top SEE NOTE Creatinine 1.08 Estim Creat Clear Calc 41.3 Estimated GFR 48 POC Glucose 152 H 110 01/27/24 01/28/24 20:02 06:38 Hold Purple Top Creatinine Estim Creat Clear Calc Estimated GFR POC Glucose 189 H 98 Medications Medications Current Medications Acetaminophen (Acetaminophen 325 Mg Tablet) 650 mg PO Q6H PRN PRN Reason: Headache/Pain Mild Scale (1-3) Last Admin: 01/28/24 09:32 Dose: 650 mg Al Hydroxide/Mg Hydroxide (Magnesium Hydrox/Alum Hydrox 30 Ml Oral.Susp) 30 ml PO Q6H PRN PRN Reason: Heartburn/Nausea Allopurinol (Allopurinol 100 Mg Tablet) 100 mg PO DAILY [facility] Last Admin: 01/28/24 09:40 Dose: 100 mg Amlodipine Besylate (Amlodipine Besylate 2.5 Mg Tablet) 2.5 mg PO DAILY [facility]; Protocol Last Admin: 01/28/24 09:32 Dose: 2.5 mg Artificial Tears (Artificial Tears 15 Ml Drops) 2 drop EYE-BOTH Q4H PRN PRN Reason: Dry Eyes Last Admin: 01/10/24 09:25 Dose: 2 drop Atorvastatin Calcium (Atorvastatin Calcium 10 Mg Tablet) 10 mg PO BEDTIME [facility] Last Admin: 01/27/24 20:07 Dose: 10 mg Cyclobenzaprine HCl (Cyclobenzaprine Hcl 5 Mg Tablet) 5 mg PO TID PRN PRN Reason: back spasm Last Admin: 01/18/24 11:39 Dose: 5 mg Diphenoxylate HCl/Atropine (Diphenoxylate/Atrop 2.5/0.025 Tablet) 1 tab PO DAILY PRN PRN Reason: Diarrhea Last Admin: 01/27/24 06:14 Dose: 1 tab Donepezil HCl (Donepezil Hcl 5 Mg Tablet) 5 mg PO BEDTIME [facility] Last Admin: 01/27/24 20:07 Dose: 5 mg Escitalopram Oxalate (Escitalopram Oxalate 10 Mg Tablet) 10 mg PO DAILY [facility] Last Admin: 01/28/24 09:32 Dose: 10 mg Levothyroxine Sodium (Levothyroxine Sodium 88 Mcg Tablet) 88 mcg PO DAILY@0600 [facility] Last Admin: 01/28/24 06:00 Dose: 88 mcg Lidocaine (Lidocaine 4 % Patch Adh..Patch) 2 patch TRANSDERMA DAILY [facility]; Protocol Last Admin: 01/28/24 09:33 Dose: Not Given Loperamide HCl (Loperamide Hcl 2 Mg Capsule) 2 mg PO Q4H PRN PRN Reason: Loose Stool Lorazepam (Lorazepam 0.5 Mg Tablet) 0.5 mg PO DAILY PRN PRN Reason: anxiety Last Admin: 01/27/24 08:40 Dose: 0.5 mg Magnesium Hydroxide (Milk Of Magnesia 30 Ml Oral.Susp) 30 ml PO DAILY PRN PRN Reason: Constipation Memantine (Memantine Hcl 5 Mg Tablet) 5 mg PO DAILY [facility] Last Admin: 01/28/24 09:32 Dose: 5 mg Metformin HCl (Metformin Hcl Er 750 Mg Tab.Er.24h) 750 mg PO BEDTIME [facility] Last Admin: 01/27/24 20:07 Dose: 750 mg Pt Own (Cyclosporine ([Restasis] 1 Drop)) 1 drop EYE-BOTH BID [facility] Last Admin: 01/28/24 09:32 Dose: 1 drop Olanzapine (Olanzapine 2.5 Mg Tablet) 2.5 mg PO Q4H PRN PRN Reason: agitation/acute psychosis Simethicone (Simethicone 80 Mg Tab.Chew) 80 mg PO QIDWMHS PRN PRN Reason: bloating Last Admin: 01/28/24 09:32 Dose: 80 mg Sitagliptin Phosphate (Sitagliptin Phosphate 100 Mg Tablet) 100 mg PO DAILY [facility] Last Admin: 01/28/24 09:32 Dose: 100 mg Trazodone HCl (Trazodone Hcl 50 Mg Tablet) 50 mg PO BEDTIME MRX1 PRN PRN Reason: Insomnia Vitamin D (Cholecalciferol (Vitamin D3) 25 Mcg Tablet) 25 mcg PO DAILY [facility] Last Admin: 01/28/24 09:32 Dose: 25 mcg Zolpidem Tartrate (Zolpidem Tartrate 5 Mg Tablet) 5 mg PO BEDTIME [facility] Last Admin: 01/27/24 20:07 Dose: 5 mg Allergies Allergies Allergy/AdvReac Type Severity Reaction Status Date / Time codeine Allergy Unknown Verified 12/07/23 20:27 Assessment & Plan Assessment & Plan (1) Dementia with psychotic disturbance: Status: Acute Code(s): F03.92 - Unspecified dementia, unspecified severity, with psychotic disturbance Plan Mrs. Jin is a 83 year-old woman with hx of vascular dementia with delusions of having an affair and some paranoid delusions. Some insight that this may not be the case but pt very much believes and takes action based on delusion despite here reporting that it may not be happening. It is unclear report from [facility] as to suicidal ideation. no indication of imminent harm to self or others, but collateral information is pending from family. May consider antipsychotic. PLAN 1. Restart Namenda. 2. Rexulti was started and increase it to 0.5 p.o. b.i.d. at this point. We are discontinued it on December 18 since the patient has refused to take it and there is no evidence of assaultive behavior. 3. Information of healthcare proxy. 4. Reassessment with results. 5. Waiting for placement 6. Waiting for [facility] application clearance. Patient educated on: diagnosis Informed Consent: understands Reason for continued inpatient stay Substantial Risk for: rapid decompensation Time Spent With Patient Time: Total time managing care of this patient today ____ minutes.
[2024-01-28 19:44] LABS: Glucose, Whole Blood 173 mg/dL (60-115)
[2024-01-28 20:00] VITALS: BP 137/63; PULSE 67; RESP 18; TEMP 36.2; O2SAT 97
[2024-01-28] MEDS: Atorvastatin Calcium 10 MG TABLET PO (20:16)
[2024-01-28] MEDS: metFORMIN HCl ER 750 MG TAB.ER.24H PO (20:16)
[2024-01-28] MEDS: Zolpidem Tartrate 5 MG TABLET PO (20:16)
[2024-01-28] MEDS: Donepezil HCl 5 MG TABLET PO (20:16)
[2024-01-29] MEDS: Levothyroxine Sodium 88 MCG TABLET PO (06:07)
[2024-01-29 07:40] LABS: Glucose, Whole Blood 113 mg/dL (60-115)
[2024-01-29 08:00] VITALS: BP 143/60; PULSE 97; RESP 17; TEMP 36.4; O2SAT 97
[2024-01-29] MEDS: allopurinoL 100 MG TABLET PO (09:08)
[2024-01-29] MEDS: Memantine HCl 5 MG TABLET PO (09:08)
[2024-01-29] MEDS: SITagliptin Phosphate 100 MG TABLET PO (09:08)
[2024-01-29 09:09] VITALS: BP 143/66
[2024-01-29] MEDS: amLODIPine Besylate 2.5 MG TABLET PO (09:09)
[2024-01-29] MEDS: Cholecalciferol (Vitamin D3) 25 MCG TABLET PO (09:09)
[2024-01-29] MEDS: Escitalopram Oxalate 10 MG TABLET PO (09:10)
[2024-01-29] MEDS: Acetaminophen 325 MG TABLET 650 MG PO ×2 (09:24→20:26)
[2024-01-29] MEDS: Simethicone 80 MG TAB.CHEW PO ×2 (09:27→20:26)
[2024-01-29] MEDS: LORazepam 0.5 MG TABLET PO (09:27)
--- NOTE | 2024-01-29 12:06 | P.PNPSI_ITS ---
Subjective Subjective Date of Service: 01/29/24 Reason For Visit: psychosis Subjective Notes: Conditional Voluntary Interim History: The nursing staff reported the patient had been compliant with treatment, no changes in her mental status. She slept poorly since her roommate was slightly no easy. The social media specialist reported that his son will visited [facility] facility. On interview the patient denies new symptoms, waiting for placement. Mental Status Exam Mental Status Exam Patient Appearance: Appropriate Patient Orientation: Person and Situation Level of Consciousness: Awake and Appropriate Patient Behavior: Guarded and Passive Mood Description: Calm Affect Description: Constricted Patient Cognition Impaired: Yes Ability to Follow Directions: Good Speech Pattern: Clear Hallucinations: None Delusions: Not Present Thought Process: Distracted and Slowed Thinking Thought Content: positive for [place] and positive for Poverty of Content Judgement: Fair Diagnostics Vital Signs (24Hr): Vital Signs - 24 hr 01/28/24 20:00 01/29/24 09:09 Temperature 97.1 F Pulse Rate 67 Respiratory Rate 18 Blood Pressure 137/63 143/66 H Pulse Oximetry 97 Oxygen Delivery Method Room Air BMI result Body Mass Index 30.6 Labs 01/06/24 07:28 01/27/24 08:42 Labs: Laboratory Results - last 48 hr 01/27/24 01/28/24 01/28/24 20:02 06:38 19:32 POC Glucose 189 H 98 173 H 01/29/24 06:42 POC Glucose 113 Medications Medications Current Medications Acetaminophen (Acetaminophen 325 Mg Tablet) 650 mg PO Q6H PRN PRN Reason: Headache/Pain Mild Scale (1-3) Last Admin: 01/29/24 09:24 Dose: 650 mg Al Hydroxide/Mg Hydroxide (Magnesium Hydrox/Alum Hydrox 30 Ml Oral.Susp) 30 ml PO Q6H PRN PRN Reason: Heartburn/Nausea Allopurinol (Allopurinol 100 Mg Tablet) 100 mg PO DAILY [facility] Last Admin: 01/29/24 09:08 Dose: 100 mg Amlodipine Besylate (Amlodipine Besylate 2.5 Mg Tablet) 2.5 mg PO DAILY [facility]; Protocol Last Admin: 01/29/24 09:09 Dose: 2.5 mg Artificial Tears (Artificial Tears 15 Ml Drops) 2 drop EYE-BOTH Q4H PRN PRN Reason: Dry Eyes Last Admin: 01/10/24 09:25 Dose: 2 drop Atorvastatin Calcium (Atorvastatin Calcium 10 Mg Tablet) 10 mg PO BEDTIME [facility] Last Admin: 01/28/24 20:16 Dose: 10 mg Cyclobenzaprine HCl (Cyclobenzaprine Hcl 5 Mg Tablet) 5 mg PO TID PRN PRN Reason: back spasm Last Admin: 01/18/24 11:39 Dose: 5 mg Diphenoxylate HCl/Atropine (Diphenoxylate/Atrop 2.5/0.025 Tablet) 1 tab PO DAILY PRN PRN Reason: loose stools Donepezil HCl (Donepezil Hcl 5 Mg Tablet) 5 mg PO BEDTIME [facility] Last Admin: 01/28/24 20:16 Dose: 5 mg Escitalopram Oxalate (Escitalopram Oxalate 10 Mg Tablet) 10 mg PO DAILY [facility] Last Admin: 01/29/24 09:10 Dose: 10 mg Levothyroxine Sodium (Levothyroxine Sodium 88 Mcg Tablet) 88 mcg PO DAILY@0600 [facility] Last Admin: 01/29/24 06:07 Dose: 88 mcg Lidocaine (Lidocaine 4 % Patch Adh..Patch) 2 patch TRANSDERMA DAILY [facility]; Protocol Last Admin: 01/29/24 09:41 Dose: Not Given Loperamide HCl (Loperamide Hcl 2 Mg Capsule) 2 mg PO Q4H PRN PRN Reason: Loose Stool Lorazepam (Lorazepam 0.5 Mg Tablet) 0.5 mg PO DAILY PRN PRN Reason: Anxiety Last Admin: 01/29/24 09:27 Dose: 0.5 mg Magnesium Hydroxide (Milk Of Magnesia 30 Ml Oral.Susp) 30 ml PO DAILY PRN PRN Reason: Constipation Memantine (Memantine Hcl 5 Mg Tablet) 5 mg PO DAILY [facility] Last Admin: 01/29/24 09:08 Dose: 5 mg Metformin HCl (Metformin Hcl Er 750 Mg Tab.Er.24h) 750 mg PO BEDTIME [facility] Last Admin: 01/28/24 20:16 Dose: 750 mg Pt Own (Cyclosporine ([Restasis] 1 Drop)) 1 drop EYE-BOTH BID [facility] Last Admin: 01/29/24 09:42 Dose: Not Given Olanzapine (Olanzapine 2.5 Mg Tablet) 2.5 mg PO Q4H PRN PRN Reason: agitation/acute psychosis Simethicone (Simethicone 80 Mg Tab.Chew) 80 mg PO QIDWMHS PRN PRN Reason: bloating Last Admin: 01/29/24 09:27 Dose: 80 mg Sitagliptin Phosphate (Sitagliptin Phosphate 100 Mg Tablet) 100 mg PO DAILY [facility] Last Admin: 01/29/24 09:08 Dose: 100 mg Trazodone HCl (Trazodone Hcl 50 Mg Tablet) 50 mg PO BEDTIME MRX1 PRN PRN Reason: Insomnia Vitamin D (Cholecalciferol (Vitamin D3) 25 Mcg Tablet) 25 mcg PO DAILY [facility] Last Admin: 01/29/24 09:09 Dose: 25 mcg Zolpidem Tartrate (Zolpidem Tartrate 5 Mg Tablet) 5 mg PO BEDTIME [facility] Allergies Allergies Allergy/AdvReac Type Severity Reaction Status Date / Time codeine Allergy Unknown Verified 12/07/23 20:27 Assessment & Plan Assessment & Plan (1) Dementia with psychotic disturbance: Status: Acute Code(s): F03.92 - Unspecified dementia, unspecified severity, with psychotic disturbance Plan Mrs. Jin is a 83 year-old woman with hx of vascular dementia with delusions of having an affair and some paranoid delusions. Some insight that this may not be the case but pt very much believes and takes action based on delusion despite here reporting that it may not be happening. It is unclear report from [facility] as to suicidal ideation. no indication of imminent harm to self or others, but collateral information is pending from family. May consider antipsychotic. PLAN 1. Restart Namenda. 2. Rexulti was started and increase it to 0.5 p.o. b.i.d. at this point. We are discontinued it on December 18 since the patient has refused to take it and there is no evidence of assaultive behavior. 3. Information of healthcare proxy. 4. Reassessment with results. 5. Waiting for placement 6. Waiting for [facility] application clearance. Reason for continued inpatient stay Substantial Risk for: inability to function, rapid decompensation and med/psych decompensation Time Spent With Patient Time: Total time managing care of this patient today __20__ minutes.
[2024-01-29 20:00] VITALS: BP 142/71; PULSE 78; RESP 17; TEMP 36.8; O2SAT 96
[2024-01-29] MEDS: CYCLOSPORINE 1 EACH EYE-BOTH (20:14)
[2024-01-29] MEDS: metFORMIN HCl ER 750 MG TAB.ER.24H PO (20:14)
[2024-01-29] MEDS: Donepezil HCl 5 MG TABLET PO (20:15)
[2024-01-29] MEDS: Zolpidem Tartrate 5 MG TABLET PO (20:15)
[2024-01-29] MEDS: Atorvastatin Calcium 10 MG TABLET PO (20:15)
[2024-01-29 20:37] LABS: Glucose, Whole Blood 225 mg/dL (60-115)
[2024-01-30] MEDS: Levothyroxine Sodium 88 MCG TABLET PO (05:42)
[2024-01-30 06:33] LABS: Glucose, Whole Blood 89 mg/dL (60-115)
[2024-01-30 08:00] VITALS: BP 159/69; PULSE 62; RESP 18; TEMP 36.4; O2SAT 96
[2024-01-30] MEDS: CYCLOSPORINE 1 EACH EYE-BOTH ×2 (08:57→20:21)
[2024-01-30] MEDS: Memantine HCl 5 MG TABLET PO (08:58)
[2024-01-30] MEDS: SITagliptin Phosphate 100 MG TABLET PO (08:58)
[2024-01-30] MEDS: Cholecalciferol (Vitamin D3) 25 MCG TABLET PO (08:58)
[2024-01-30] MEDS: allopurinoL 100 MG TABLET PO (08:58)
[2024-01-30] MEDS: Escitalopram Oxalate 10 MG TABLET PO (08:58)
[2024-01-30] MEDS: amLODIPine Besylate 2.5 MG TABLET PO (08:58)
[2024-01-30] MEDS: Simethicone 80 MG TAB.CHEW PO ×2 (09:05→20:21)
[2024-01-30] MEDS: Acetaminophen 325 MG TABLET 650 MG PO ×2 (09:05→20:21)
--- NOTE | 2024-01-30 11:00 | HO.PSYCHPN ---
Subjective Subjective Date of Service: 01/30/24 Reason For Visit: psychosis Subjective Notes: Conditional Voluntary Interim History: The nursing staff reported that she had been irritable since her roommate was making noticed a night and she slept only 7 hours. The social science teacher reported that his family visited [facility] [place] waiting for placement. On interview the patient denies new symptoms. Mental Status Exam Mental Status Exam Patient Appearance: Appropriate Patient Orientation: Person and Situation Level of Consciousness: Awake and Appropriate Patient Behavior: Guarded and Passive Mood Description: Withdrawn Affect Description: Constricted Patient Cognition Impaired: Yes Ability to Follow Directions: Good Speech Pattern: Clear Hallucinations: None Delusions: Not Present Thought Process: Distracted and Slowed Thinking Thought Content: positive for [place] and positive for Poverty of Content Judgement: Fair Diagnostics Vital Signs (24Hr): Vital Signs - 24 hr 01/29/24 20:00 01/30/24 08:00 Temperature 98.3 F 97.6 F Pulse Rate 78 62 Respiratory Rate 17 18 Blood Pressure 142/71 H 159/69 H Pulse Oximetry 96 96 Oxygen Delivery Method Room Air Room Air BMI result Body Mass Index 30.6 Labs 01/06/24 07:28 01/27/24 08:42 Labs: Laboratory Results - last 48 hr 01/28/24 01/29/24 01/29/24 19:32 06:42 20:13 POC Glucose 173 H 113 225 H 01/30/24 05:44 POC Glucose 89 Medications Medications Current Medications Acetaminophen (Acetaminophen 325 Mg Tablet) 650 mg PO Q6H PRN PRN Reason: Headache/Pain Mild Scale (1-3) Last Admin: 01/30/24 09:05 Dose: 650 mg Al Hydroxide/Mg Hydroxide (Magnesium Hydrox/Alum Hydrox 30 Ml Oral.Susp) 30 ml PO Q6H PRN PRN Reason: Heartburn/Nausea Allopurinol (Allopurinol 100 Mg Tablet) 100 mg PO DAILY [facility] Last Admin: 01/30/24 08:58 Dose: 100 mg Amlodipine Besylate (Amlodipine Besylate 2.5 Mg Tablet) 2.5 mg PO DAILY [facility]; Protocol Last Admin: 01/30/24 08:58 Dose: 2.5 mg Artificial Tears (Artificial Tears 15 Ml Drops) 2 drop EYE-BOTH Q4H PRN PRN Reason: Dry Eyes Last Admin: 01/10/24 09:25 Dose: 2 drop Atorvastatin Calcium (Atorvastatin Calcium 10 Mg Tablet) 10 mg PO BEDTIME [facility] Last Admin: 01/29/24 20:15 Dose: 10 mg Cyclobenzaprine HCl (Cyclobenzaprine Hcl 5 Mg Tablet) 5 mg PO TID PRN PRN Reason: back spasm Last Admin: 01/18/24 11:39 Dose: 5 mg Diphenoxylate HCl/Atropine (Diphenoxylate/Atrop 2.5/0.025 Tablet) 1 tab PO DAILY PRN PRN Reason: loose stools Donepezil HCl (Donepezil Hcl 5 Mg Tablet) 5 mg PO BEDTIME [facility] Last Admin: 01/29/24 20:15 Dose: 5 mg Escitalopram Oxalate (Escitalopram Oxalate 10 Mg Tablet) 10 mg PO DAILY [facility] Last Admin: 01/30/24 08:58 Dose: 10 mg Levothyroxine Sodium (Levothyroxine Sodium 88 Mcg Tablet) 88 mcg PO DAILY@0600 [facility] Last Admin: 01/30/24 05:42 Dose: 88 mcg Lidocaine (Lidocaine 4 % Patch Adh..Patch) 2 patch TRANSDERMA DAILY [facility]; Protocol Last Admin: 01/30/24 09:09 Dose: Not Given Loperamide HCl (Loperamide Hcl 2 Mg Capsule) 2 mg PO Q4H PRN PRN Reason: Loose Stool Lorazepam (Lorazepam 0.5 Mg Tablet) 0.5 mg PO DAILY PRN PRN Reason: Anxiety Last Admin: 01/29/24 09:27 Dose: 0.5 mg Magnesium Hydroxide (Milk Of Magnesia 30 Ml Oral.Susp) 30 ml PO DAILY PRN PRN Reason: Constipation Memantine (Memantine Hcl 5 Mg Tablet) 5 mg PO DAILY [facility] Last Admin: 01/30/24 08:58 Dose: 5 mg Metformin HCl (Metformin Hcl Er 750 Mg Tab.Er.24h) 750 mg PO BEDTIME [facility] Last Admin: 01/29/24 20:14 Dose: 750 mg Pt Own (Cyclosporine ([Restasis] 1 Drop)) 1 drop EYE-BOTH BID [facility]PL[facility] Last Admin: 01/30/24 08:57 Dose: 1 drop Olanzapine (Olanzapine 2.5 Mg Tablet) 2.5 mg PO Q4H PRN PRN Reason: agitation/acute psychosis Simethicone (Simethicone 80 Mg Tab.Chew) 80 mg PO QIDWMHS PRN PRN Reason: bloating Last Admin: 01/30/24 09:05 Dose: 80 mg Sitagliptin Phosphate (Sitagliptin Phosphate 100 Mg Tablet) 100 mg PO DAILY [facility] Last Admin: 01/30/24 08:58 Dose: 100 mg Trazodone HCl (Trazodone Hcl 50 Mg Tablet) 50 mg PO BEDTIME MRX1 PRN PRN Reason: Insomnia Vitamin D (Cholecalciferol (Vitamin D3) 25 Mcg Tablet) 25 mcg PO DAILY [facility] Last Admin: 01/30/24 08:58 Dose: 25 mcg Zolpidem Tartrate (Zolpidem Tartrate 5 Mg Tablet) 5 mg PO BEDTIME [facility] Last Admin: 01/29/24 20:15 Dose: 5 mg Allergies Allergies Allergy/AdvReac Type Severity Reaction Status Date / Time codeine Allergy Unknown Verified 12/07/23 20:27 Assessment & Plan Assessment & Plan (1) Dementia with psychotic disturbance: Status: Acute Code(s): F03.92 - Unspecified dementia, unspecified severity, with psychotic disturbance Plan Mrs. Jin is a 83 year-old woman with hx of vascular dementia with delusions of having an affair and some paranoid delusions. Some insight that this may not be the case but pt very much believes and takes action based on delusion despite here reporting that it may not be happening. It is unclear report from [facility] as to suicidal ideation. no indication of imminent harm to self or others, but collateral information is pending from family. May consider antipsychotic. PLAN 1. Restart Namenda. 2. Rexulti was started and increase it to 0.5 p.o. b.i.d. at this point. We are discontinued it on December 18 since the patient has refused to take it and there is no evidence of assaultive behavior. 3. Information of healthcare proxy. 4. Reassessment with results. 5. Waiting for placement 6. Waiting for [facility] application clearance. Reason for continued inpatient stay Substantial Risk for: inability to function, rapid decompensation and med/psych decompensation Time Spent With Patient Time: Total time managing care of this patient today __20__ minutes.
[2024-01-30 20:00] VITALS: BP 134/59; PULSE 66; RESP 18; TEMP 36.5; O2SAT 95
[2024-01-30] MEDS: Zolpidem Tartrate 5 MG TABLET PO (20:21)
[2024-01-30] MEDS: Atorvastatin Calcium 10 MG TABLET PO (20:21)
[2024-01-30] MEDS: Donepezil HCl 5 MG TABLET PO (20:21)
[2024-01-30] MEDS: metFORMIN HCl ER 750 MG TAB.ER.24H PO (20:21)
[2024-01-30 20:38] LABS: Glucose, Whole Blood 169 mg/dL (60-115)
[2024-01-31] MEDS: Levothyroxine Sodium 88 MCG TABLET PO (06:42)
[2024-01-31 06:53] LABS: Glucose, Whole Blood 102 mg/dL (60-115)
[2024-01-31 08:00] VITALS: BP 139/62; PULSE 60; RESP 18; TEMP 36.8; O2SAT 97
[2024-01-31] MEDS: CYCLOSPORINE 1 EACH EYE-BOTH ×2 (08:31→20:01)
[2024-01-31] MEDS: Escitalopram Oxalate 10 MG TABLET PO (08:32)
[2024-01-31] MEDS: amLODIPine Besylate 2.5 MG TABLET PO (08:32)
[2024-01-31] MEDS: SITagliptin Phosphate 100 MG TABLET PO (08:32)
[2024-01-31] MEDS: Memantine HCl 5 MG TABLET PO (08:32)
[2024-01-31] MEDS: Acetaminophen 325 MG TABLET 650 MG PO ×2 (08:34→20:01)
[2024-01-31] MEDS: allopurinoL 100 MG TABLET PO (08:36)
[2024-01-31] MEDS: Cholecalciferol (Vitamin D3) 25 MCG TABLET PO (08:36)
--- NOTE | 2024-01-31 14:58 | HO.PSYCHPN ---
Subjective Subjective Date of Service: 01/31/24 Reason For Visit: psychosis Subjective Notes: Conditional Voluntary Interim History: The nursing staff reported no changes in mental status she slept well. The social director reported that the family probably found in [facility] facility. On interview the patient denies new symptoms, waiting for placement. Mental Status Exam Mental Status Exam Patient Appearance: Appropriate Patient Orientation: Person and Situation Level of Consciousness: Awake and Appropriate Patient Behavior: Guarded and Passive Mood Description: Withdrawn Affect Description: Constricted Patient Cognition Impaired: Yes Ability to Follow Directions: Good Speech Pattern: Clear Hallucinations: None Delusions: Not Present Thought Process: Distracted and Slowed Thinking Thought Content: positive for [place] and positive for Poverty of Content Judgement: Fair Diagnostics Vital Signs (24Hr): Vital Signs - 24 hr 01/30/24 20:00 01/31/24 08:00 Temperature 97.7 F 98.2 F Pulse Rate 66 60 Respiratory Rate 18 18 Blood Pressure 134/59 L 139/62 Pulse Oximetry 95 97 Oxygen Delivery Method Room Air Room Air BMI result Body Mass Index 30.6 Labs 01/06/24 07:28 01/27/24 08:42 Labs: Laboratory Results - last 48 hr 01/29/24 01/30/24 01/30/24 20:13 05:44 20:20 POC Glucose 225 H 89 169 H 01/31/24 06:41 POC Glucose 102 Medications Medications Current Medications Acetaminophen (Acetaminophen 325 Mg Tablet) 650 mg PO Q6H PRN PRN Reason: Headache/Pain Mild Scale (1-3) Last Admin: 01/31/24 08:34 Dose: 650 mg Al Hydroxide/Mg Hydroxide (Magnesium Hydrox/Alum Hydrox 30 Ml Oral.Susp) 30 ml PO Q6H PRN PRN Reason: Heartburn/Nausea Allopurinol (Allopurinol 100 Mg Tablet) 100 mg PO DAILY [facility] Last Admin: 01/31/24 08:36 Dose: 100 mg Amlodipine Besylate (Amlodipine Besylate 2.5 Mg Tablet) 2.5 mg PO DAILY [facility]; Protocol Last Admin: 01/31/24 08:32 Dose: 2.5 mg Artificial Tears (Artificial Tears 15 Ml Drops) 2 drop EYE-BOTH Q4H PRN PRN Reason: Dry Eyes Last Admin: 01/10/24 09:25 Dose: 2 drop Atorvastatin Calcium (Atorvastatin Calcium 10 Mg Tablet) 10 mg PO BEDTIME [facility] Last Admin: 01/30/24 20:21 Dose: 10 mg Cyclobenzaprine HCl (Cyclobenzaprine Hcl 5 Mg Tablet) 5 mg PO TID PRN PRN Reason: back spasm Last Admin: 01/18/24 11:39 Dose: 5 mg Diphenoxylate HCl/Atropine (Diphenoxylate/Atrop 2.5/0.025 Tablet) 1 tab PO DAILY PRN PRN Reason: loose stools Donepezil HCl (Donepezil Hcl 5 Mg Tablet) 5 mg PO BEDTIME [facility] Last Admin: 01/30/24 20:21 Dose: 5 mg Escitalopram Oxalate (Escitalopram Oxalate 10 Mg Tablet) 10 mg PO DAILY [facility] Last Admin: 01/31/24 08:32 Dose: 10 mg Levothyroxine Sodium (Levothyroxine Sodium 88 Mcg Tablet) 88 mcg PO DAILY@0600 [facility] Last Admin: 01/31/24 06:42 Dose: 88 mcg Lidocaine (Lidocaine 4 % Patch Adh..Patch) 2 patch TRANSDERMA DAILY [facility]; Protocol Last Admin: 01/31/24 08:40 Dose: Not Given Loperamide HCl (Loperamide Hcl 2 Mg Capsule) 2 mg PO Q4H PRN PRN Reason: Loose Stool Lorazepam (Lorazepam 0.5 Mg Tablet) 0.5 mg PO DAILY PRN PRN Reason: Anxiety Last Admin: 01/29/24 09:27 Dose: 0.5 mg Magnesium Hydroxide (Milk Of Magnesia 30 Ml Oral.Susp) 30 ml PO DAILY PRN PRN Reason: Constipation Memantine (Memantine Hcl 5 Mg Tablet) 5 mg PO DAILY [facility] Last Admin: 01/31/24 08:32 Dose: 5 mg Metformin HCl (Metformin Hcl Er 750 Mg Tab.Er.24h) 750 mg PO BEDTIME [facility] Last Admin: 01/30/24 20:21 Dose: 750 mg Pt Own (Cyclosporine ([Restasis] 1 Drop)) 1 drop EYE-BOTH BID [facility] Last Admin: 01/31/24 08:31 Dose: 1 drop Olanzapine (Olanzapine 2.5 Mg Tablet) 2.5 mg PO Q4H PRN PRN Reason: agitation/acute psychosis Simethicone (Simethicone 80 Mg Tab.Chew) 80 mg PO QIDWMHS PRN PRN Reason: bloating Last Admin: 01/30/24 20:21 Dose: 80 mg Sitagliptin Phosphate (Sitagliptin Phosphate 100 Mg Tablet) 100 mg PO DAILY [facility] Last Admin: 01/31/24 08:32 Dose: 100 mg Trazodone HCl (Trazodone Hcl 50 Mg Tablet) 50 mg PO BEDTIME MRX1 PRN PRN Reason: Insomnia Vitamin D (Cholecalciferol (Vitamin D3) 25 Mcg Tablet) 25 mcg PO DAILY [facility] Last Admin: 01/31/24 08:36 Dose: 25 mcg Zolpidem Tartrate (Zolpidem Tartrate 5 Mg Tablet) 5 mg PO BEDTIME [facility] Last Admin: 01/30/24 20:21 Dose: 5 mg Allergies Allergies Allergy/AdvReac Type Severity Reaction Status Date / Time codeine Allergy Unknown Verified 12/07/23 20:27 Assessment & Plan Assessment & Plan (1) Dementia with psychotic disturbance: Status: Acute Code(s): F03.92 - Unspecified dementia, unspecified severity, with psychotic disturbance Plan Mrs. Jin is a 83 year-old woman with hx of vascular dementia with delusions of having an affair and some paranoid delusions. Some insight that this may not be the case but pt very much believes and takes action based on delusion despite here reporting that it may not be happening. It is unclear report from [facility] as to suicidal ideation. no indication of imminent harm to self or others, but collateral information is pending from family. May consider antipsychotic. PLAN 1. Restart Namenda. 2. Rexulti was started and increase it to 0.5 p.o. b.i.d. at this point. We are discontinued it on December 18 since the patient has refused to take it and there is no evidence of assaultive behavior. 3. Information of healthcare proxy. 4. Reassessment with results. 5. Waiting for placement 6. Waiting for [facility] application clearance. Reason for continued inpatient stay Substantial Risk for: inability to function, rapid decompensation and med/psych decompensation Time Spent With Patient Time: Total time managing care of this patient today ___20_ minutes.
[2024-01-31 19:58] VITALS: BP 140/62; PULSE 67; RESP 16; TEMP 36.5; O2SAT 98
[2024-01-31] MEDS: Atorvastatin Calcium 10 MG TABLET PO (20:00)
[2024-01-31] MEDS: metFORMIN HCl ER 750 MG TAB.ER.24H PO (20:00)
[2024-01-31] MEDS: Zolpidem Tartrate 5 MG TABLET PO (20:01)
[2024-01-31] MEDS: Donepezil HCl 5 MG TABLET PO (20:01)
[2024-01-31] MEDS: Simethicone 80 MG TAB.CHEW PO (20:01)
[2024-01-31 20:36] LABS: Glucose, Whole Blood 187 mg/dL (60-115)
[2024-02-01] MEDS: Levothyroxine Sodium 88 MCG TABLET PO (05:35)
[2024-02-01 05:49] LABS: Glucose, Whole Blood 106 mg/dL (60-115)
[2024-02-01 08:58] VITALS: BP 138/74; PULSE 75; RESP 20; TEMP 35.9; O2SAT 96
[2024-02-01] MEDS: SITagliptin Phosphate 100 MG TABLET PO (09:02)
[2024-02-01] MEDS: Escitalopram Oxalate 10 MG TABLET PO (09:02)
[2024-02-01] MEDS: amLODIPine Besylate 2.5 MG TABLET PO (09:02)
[2024-02-01] MEDS: Memantine HCl 5 MG TABLET PO (09:03)
[2024-02-01] MEDS: Cholecalciferol (Vitamin D3) 25 MCG TABLET PO (09:03)
[2024-02-01] MEDS: allopurinoL 100 MG TABLET PO (09:03)
[2024-02-01] MEDS: Acetaminophen 325 MG TABLET 650 MG PO ×2 (09:08→19:43)
[2024-02-01] MEDS: Simethicone 80 MG TAB.CHEW PO ×2 (09:09→19:42)
[2024-02-01] MEDS: CYCLOSPORINE 1 EACH EYE-BOTH ×2 (09:10→19:41)
--- NOTE | 2024-02-01 12:03 | P.PNPSI_ITS ---
Subjective Subjective Date of Service: 02/01/24 Reason For Visit: psychosis Subjective Notes: Conditional Voluntary Interim History: The nursing staff reported that she is in her mental status compliant with treatment. On interview the patient denies new symptoms, waiting for placement. Mental Status Exam Mental Status Exam Patient Appearance: Well Grooomed and Appropriate Patient Orientation: Person and Situation Level of Consciousness: Awake and Appropriate Patient Behavior: Guarded and Passive Mood Description: Withdrawn Affect Description: Constricted Patient Cognition Impaired: Yes Ability to Follow Directions: Good Speech Pattern: Clear Hallucinations: None Delusions: Not Present Thought Process: Distracted and Slowed Thinking Thought Content: positive for [place] and positive for Poverty of Content Judgement: Fair Diagnostics Vital Signs (24Hr): Vital Signs - 24 hr 01/31/24 19:58 02/01/24 08:58 Temperature 97.7 F 96.7 F L Pulse Rate 67 75 Respiratory Rate 16 20 Blood Pressure 140/62 H 138/74 Pulse Oximetry 98 96 Oxygen Delivery Method Room Air Room Air BMI result Body Mass Index 30.6 Labs 01/06/24 07:28 01/27/24 08:42 Labs: Laboratory Results - last 48 hr 01/30/24 01/31/24 01/31/24 20:20 06:41 20:05 POC Glucose 169 H 102 187 H 02/01/24 05:37 POC Glucose 106 Medications Medications Current Medications Acetaminophen (Acetaminophen 325 Mg Tablet) 650 mg PO Q6H PRN PRN Reason: Headache/Pain Mild Scale (1-3) Last Admin: 02/01/24 09:08 Dose: 650 mg Al Hydroxide/Mg Hydroxide (Magnesium Hydrox/Alum Hydrox 30 Ml Oral.Susp) 30 ml PO Q6H PRN PRN Reason: Heartburn/Nausea Allopurinol (Allopurinol 100 Mg Tablet) 100 mg PO DAILY [facility] Last Admin: 02/01/24 09:03 Dose: 100 mg Amlodipine Besylate (Amlodipine Besylate 2.5 Mg Tablet) 2.5 mg PO DAILY [facility]; Protocol Last Admin: 02/01/24 09:02 Dose: 2.5 mg Artificial Tears (Artificial Tears 15 Ml Drops) 2 drop EYE-BOTH Q4H PRN PRN Reason: Dry Eyes Last Admin: 01/10/24 09:25 Dose: 2 drop Atorvastatin Calcium (Atorvastatin Calcium 10 Mg Tablet) 10 mg PO BEDTIME [facility] Last Admin: 01/31/24 20:00 Dose: 10 mg Cyclobenzaprine HCl (Cyclobenzaprine Hcl 5 Mg Tablet) 5 mg PO TID PRN PRN Reason: back spasm Last Admin: 01/18/24 11:39 Dose: 5 mg Diphenoxylate HCl/Atropine (Diphenoxylate/Atrop 2.5/0.025 Tablet) 1 tab PO DAILY PRN PRN Reason: loose stools Donepezil HCl (Donepezil Hcl 5 Mg Tablet) 5 mg PO BEDTIME [facility] Last Admin: 01/31/24 20:01 Dose: 5 mg Escitalopram Oxalate (Escitalopram Oxalate 10 Mg Tablet) 10 mg PO DAILY [facility] Last Admin: 02/01/24 09:02 Dose: 10 mg Levothyroxine Sodium (Levothyroxine Sodium 88 Mcg Tablet) 88 mcg PO DAILY@0600 [facility] Last Admin: 02/01/24 05:35 Dose: 88 mcg Lidocaine (Lidocaine 4 % Patch Adh..Patch) 2 patch TRANSDERMA DAILY [facility]; Protocol Last Admin: 02/01/24 09:04 Dose: Not Given Loperamide HCl (Loperamide Hcl 2 Mg Capsule) 2 mg PO Q4H PRN PRN Reason: Loose Stool Lorazepam (Lorazepam 0.5 Mg Tablet) 0.5 mg PO DAILY PRN PRN Reason: Anxiety Last Admin: 01/29/24 09:27 Dose: 0.5 mg Magnesium Hydroxide (Milk Of Magnesia 30 Ml Oral.Susp) 30 ml PO DAILY PRN PRN Reason: Constipation Memantine (Memantine Hcl 5 Mg Tablet) 5 mg PO DAILY [facility] Last Admin: 02/01/24 09:03 Dose: 5 mg Metformin HCl (Metformin Hcl Er 750 Mg Tab.Er.24h) 750 mg PO BEDTIME [facility] Last Admin: 01/31/24 20:00 Dose: 750 mg Pt Own (Cyclosporine ([Restasis] 1 Drop)) 1 drop EYE-BOTH BID [facility] Last Admin: 02/01/24 09:10 Dose: 1 drop Olanzapine (Olanzapine 2.5 Mg Tablet) 2.5 mg PO Q4H PRN PRN Reason: agitation/acute psychosis Simethicone (Simethicone 80 Mg Tab.Chew) 80 mg PO QIDWMHS PRN PRN Reason: bloating Last Admin: 02/01/24 09:09 Dose: 80 mg Sitagliptin Phosphate (Sitagliptin Phosphate 100 Mg Tablet) 100 mg PO DAILY [facility] Last Admin: 02/01/24 09:02 Dose: 100 mg Trazodone HCl (Trazodone Hcl 50 Mg Tablet) 50 mg PO BEDTIME MRX1 PRN PRN Reason: Insomnia Vitamin D (Cholecalciferol (Vitamin D3) 25 Mcg Tablet) 25 mcg PO DAILY [facility] Last Admin: 02/01/24 09:03 Dose: 25 mcg Zolpidem Tartrate (Zolpidem Tartrate 5 Mg Tablet) 5 mg PO BEDTIME [facility] Last Admin: 01/31/24 20:01 Dose: 5 mg Allergies Allergies Allergy/AdvReac Type Severity Reaction Status Date / Time codeine Allergy Unknown Verified 12/07/23 20:27 Assessment & Plan Assessment & Plan (1) Dementia with psychotic disturbance: Status: Acute Code(s): F03.92 - Unspecified dementia, unspecified severity, with psychotic disturbance Plan Mrs. Jin is a 83 year-old woman with hx of vascular dementia with delusions of having an affair and some paranoid delusions. Some insight that this may not be the case but pt very much believes and takes action based on delusion despite here reporting that it may not be happening. It is unclear report from [facility] as to suicidal ideation. no indication of imminent harm to self or others, but collateral information is pending from family. May consider antipsychotic. PLAN 1. Restart Namenda. 2. Rexulti was started and increase it to 0.5 p.o. b.i.d. at this point. We are discontinued it on December 18 since the patient has refused to take it and there is no evidence of assaultive behavior. 3. Information of healthcare proxy. 4. Reassessment with results. 5. Waiting for placement 6. Waiting for [facility] application clearance. Reason for continued inpatient stay Substantial Risk for: inability to function, rapid decompensation and med/psych decompensation Time Spent With Patient Time: Total time managing care of this patient today __20__ minutes.
[2024-02-01] MEDS: metFORMIN HCl ER 750 MG TAB.ER.24H PO (19:42)
[2024-02-01] MEDS: Donepezil HCl 5 MG TABLET PO (19:42)
[2024-02-01] MEDS: Atorvastatin Calcium 10 MG TABLET PO (19:42)
[2024-02-01] MEDS: Zolpidem Tartrate 5 MG TABLET PO (19:43)
[2024-02-01 20:00] VITALS: BP 142/63; PULSE 75; RESP 15; TEMP 36.6; O2SAT 96
[2024-02-01 20:05] LABS: Glucose, Whole Blood 182 mg/dL (60-115)
[2024-02-02] MEDS: Levothyroxine Sodium 88 MCG TABLET PO (05:10)
[2024-02-02 05:20] LABS: Glucose, Whole Blood 103 mg/dL (60-115)
[2024-02-02 08:48] VITALS: BP 145/67; PULSE 68; RESP 16; TEMP 36.5; O2SAT 95
[2024-02-02] MEDS: SITagliptin Phosphate 100 MG TABLET PO (08:49)
[2024-02-02] MEDS: CYCLOSPORINE 1 EACH EYE-BOTH ×2 (08:49→21:01)
[2024-02-02] MEDS: Cholecalciferol (Vitamin D3) 25 MCG TABLET PO (08:49)
[2024-02-02] MEDS: allopurinoL 100 MG TABLET PO (08:49)
[2024-02-02] MEDS: amLODIPine Besylate 2.5 MG TABLET PO (08:49)
[2024-02-02] MEDS: Escitalopram Oxalate 10 MG TABLET PO (08:50)
[2024-02-02] MEDS: Memantine HCl 5 MG TABLET PO (08:50)
[2024-02-02] MEDS: Acetaminophen 325 MG TABLET 650 MG PO ×2 (09:04→21:00)
--- NOTE | 2024-02-02 12:47 | P.PNPSI_ITS ---
Subjective Subjective Date of Service: 02/02/24 Reason For Visit: psychosis Subjective Notes: Conditional Voluntary Interim History: The nursing staff reported no changes in her mental status fully compliant with treatment. On interview the patient denies new symptoms, waiting for placement. Mental Status Exam Mental Status Exam Patient Appearance: Well Grooomed and Appropriate Patient Orientation: Person and Situation Level of Consciousness: Awake and Appropriate Patient Behavior: Guarded and Passive Mood Description: Withdrawn Affect Description: Constricted Patient Cognition Impaired: Yes Ability to Follow Directions: Good Speech Pattern: Clear Hallucinations: None Delusions: Not Present Thought Process: Distracted Thought Content: positive for [place] and positive for Poverty of Content Judgement: Fair Diagnostics Vital Signs (24Hr): Vital Signs - 24 hr 02/01/24 20:00 02/02/24 08:48 Temperature 97.8 F 97.7 F Pulse Rate 75 68 Respiratory Rate 15 16 Blood Pressure 142/63 H 145/67 H Pulse Oximetry 96 95 Oxygen Delivery Method Room Air Room Air BMI result Body Mass Index 30.0 Labs 01/06/24 07:28 01/27/24 08:42 Labs: Laboratory Results - last 48 hr 01/31/24 02/01/24 02/01/24 20:05 05:37 19:47 POC Glucose 187 H 106 182 H 02/02/24 05:13 POC Glucose 103 Medications Medications Current Medications Acetaminophen (Acetaminophen 325 Mg Tablet) 650 mg PO Q6H PRN PRN Reason: Headache/Pain Mild Scale (1-3) Last Admin: 02/02/24 09:04 Dose: 650 mg Al Hydroxide/Mg Hydroxide (Magnesium Hydrox/Alum Hydrox 30 Ml Oral.Susp) 30 ml PO Q6H PRN PRN Reason: Heartburn/Nausea Allopurinol (Allopurinol 100 Mg Tablet) 100 mg PO DAILY [facility] Last Admin: 02/02/24 08:49 Dose: 100 mg Amlodipine Besylate (Amlodipine Besylate 2.5 Mg Tablet) 2.5 mg PO DAILY [facility]; Protocol Last Admin: 02/02/24 08:49 Dose: 2.5 mg Artificial Tears (Artificial Tears 15 Ml Drops) 2 drop EYE-BOTH Q4H PRN PRN Reason: Dry Eyes Last Admin: 01/10/24 09:25 Dose: 2 drop Atorvastatin Calcium (Atorvastatin Calcium 10 Mg Tablet) 10 mg PO BEDTIME [facility] Last Admin: 02/01/24 19:42 Dose: 10 mg Cyclobenzaprine HCl (Cyclobenzaprine Hcl 5 Mg Tablet) 5 mg PO TID PRN PRN Reason: back spasm Last Admin: 01/18/24 11:39 Dose: 5 mg Diphenoxylate HCl/Atropine (Diphenoxylate/Atrop 2.5/0.025 Tablet) 1 tab PO DAILY PRN PRN Reason: loose stools Donepezil HCl (Donepezil Hcl 5 Mg Tablet) 5 mg PO BEDTIME [facility] Last Admin: 02/01/24 19:42 Dose: 5 mg Escitalopram Oxalate (Escitalopram Oxalate 10 Mg Tablet) 10 mg PO DAILY [facility] Last Admin: 02/02/24 08:50 Dose: 10 mg Levothyroxine Sodium (Levothyroxine Sodium 88 Mcg Tablet) 88 mcg PO DAILY@0600 [facility] Last Admin: 02/02/24 05:10 Dose: 88 mcg Loperamide HCl (Loperamide Hcl 2 Mg Capsule) 2 mg PO Q4H PRN PRN Reason: Loose Stool Lorazepam (Lorazepam 0.5 Mg Tablet) 0.5 mg PO DAILY PRN PRN Reason: Anxiety Last Admin: 01/29/24 09:27 Dose: 0.5 mg Magnesium Hydroxide (Milk Of Magnesia 30 Ml Oral.Susp) 30 ml PO DAILY PRN PRN Reason: Constipation Memantine (Memantine Hcl 5 Mg Tablet) 5 mg PO DAILY [facility] Last Admin: 02/02/24 08:50 Dose: 5 mg Metformin HCl (Metformin Hcl Er 750 Mg Tab.Er.24h) 750 mg PO BEDTIME [facility] Last Admin: 02/01/24 19:42 Dose: 750 mg Pt Own (Cyclosporine ([Restasis] 1 Drop)) 1 drop EYE-BOTH BID [facility] Last Admin: 02/02/24 08:49 Dose: 1 drop Olanzapine (Olanzapine 2.5 Mg Tablet) 2.5 mg PO Q4H PRN PRN Reason: agitation/acute psychosis Simethicone (Simethicone 80 Mg Tab.Chew) 80 mg PO QIDWMHS PRN PRN Reason: bloating Last Admin: 02/01/24 19:42 Dose: 80 mg Sitagliptin Phosphate (Sitagliptin Phosphate 100 Mg Tablet) 100 mg PO DAILY [facility] Last Admin: 02/02/24 08:49 Dose: 100 mg Trazodone HCl (Trazodone Hcl 50 Mg Tablet) 50 mg PO BEDTIME MRX1 PRN PRN Reason: Insomnia Vitamin D (Cholecalciferol (Vitamin D3) 25 Mcg Tablet) 25 mcg PO DAILY [facility] Last Admin: 02/02/24 08:49 Dose: 25 mcg Zolpidem Tartrate (Zolpidem Tartrate 5 Mg Tablet) 5 mg PO BEDTIME [facility] Last Admin: 02/01/24 19:43 Dose: 5 mg Allergies Allergies Allergy/AdvReac Type Severity Reaction Status Date / Time codeine Allergy Unknown Verified 12/07/23 20:27 Assessment & Plan Assessment & Plan (1) Dementia with psychotic disturbance: Status: Acute Code(s): F03.92 - Unspecified dementia, unspecified severity, with psychotic disturbance Plan Mrs. Jin is a 83 year-old woman with hx of vascular dementia with delusions of having an affair and some paranoid delusions. Some insight that this may not be the case but pt very much believes and takes action based on delusion despite here reporting that it may not be happening. It is unclear report from [facility] as to suicidal ideation. no indication of imminent harm to self or others, but collateral information is pending from family. May consider antipsychotic. PLAN 1. Restart Namenda. 2. Rexulti was started and increase it to 0.5 p.o. b.i.d. at this point. We are discontinued it on December 18 since the patient has refused to take it and there is no evidence of assaultive behavior. 3. Information of healthcare proxy. 4. Reassessment with results. 5. Waiting for placement 6. Waiting for [facility] application clearance. Reason for continued inpatient stay Substantial Risk for: inability to function, rapid decompensation and med/psych decompensation Time Spent With Patient Time: Total time managing care of this patient today __20__ minutes.
[2024-02-02 20:00] VITALS: BP 146/66; PULSE 71; RESP 16; TEMP 36.2; O2SAT 100
[2024-02-02 20:38] LABS: Glucose, Whole Blood 158 mg/dL (60-115)
[2024-02-02] MEDS: Simethicone 80 MG TAB.CHEW PO (21:00)
[2024-02-02] MEDS: metFORMIN HCl ER 750 MG TAB.ER.24H PO (21:01)
[2024-02-02] MEDS: Atorvastatin Calcium 10 MG TABLET PO (21:01)
[2024-02-02] MEDS: Zolpidem Tartrate 5 MG TABLET PO (21:01)
[2024-02-02] MEDS: Donepezil HCl 5 MG TABLET PO (21:01)
[2024-02-03] MEDS: Levothyroxine Sodium 88 MCG TABLET PO (06:49)
[2024-02-03 07:01] LABS: Glucose, Whole Blood 98 mg/dL (60-115)
[2024-02-03 08:30] LABS: Creatinine Clr Calc Pharmacy 42.5; Estimated Glomerular Filt Rate 50
[2024-02-03 09:15] VITALS: BP 151/67; PULSE 74; RESP 20; TEMP 36.2; O2SAT 97
[2024-02-03] MEDS: Memantine HCl 5 MG TABLET PO (09:18)
[2024-02-03] MEDS: Cholecalciferol (Vitamin D3) 25 MCG TABLET PO (09:18)
[2024-02-03] MEDS: amLODIPine Besylate 2.5 MG TABLET PO (09:18)
[2024-02-03] MEDS: SITagliptin Phosphate 100 MG TABLET PO (09:18)
[2024-02-03] MEDS: Simethicone 80 MG TAB.CHEW PO ×2 (09:18→20:07)
[2024-02-03] MEDS: Acetaminophen 325 MG TABLET 650 MG PO ×2 (09:19→20:06)
[2024-02-03] MEDS: allopurinoL 100 MG TABLET PO (09:19)
[2024-02-03] MEDS: Escitalopram Oxalate 10 MG TABLET PO (09:19)
[2024-02-03] MEDS: CYCLOSPORINE 1 EACH EYE-BOTH ×2 (09:21→20:05)
[2024-02-03 20:00] VITALS: BP 125/58; PULSE 68; RESP 19; TEMP 36.3; O2SAT 97
[2024-02-03] MEDS: metFORMIN HCl ER 750 MG TAB.ER.24H PO (20:07)
[2024-02-03] MEDS: Zolpidem Tartrate 5 MG TABLET PO (20:07)
[2024-02-03] MEDS: Atorvastatin Calcium 10 MG TABLET PO (20:07)
[2024-02-03] MEDS: Donepezil HCl 5 MG TABLET PO (20:07)
[2024-02-03 20:38] LABS: Glucose, Whole Blood 142 mg/dL (60-115)
--- NOTE | 2024-02-03 21:10 | P.PNPSI_ITS ---
Subjective Subjective Date of Service: 02/03/24 Reason For Visit: psychosis Interim History: no issues, requests, or concerns. per staff, OK. waiting for placement. Mental Status Exam Mental Status Exam Patient Appearance: Well Grooomed and Appropriate Patient Orientation: Person and Situation Level of Consciousness: Awake and Appropriate Patient Behavior: Guarded and Passive Mood Description: Withdrawn Affect Description: Constricted Patient Cognition Impaired: Yes Ability to Follow Directions: Good Speech Pattern: Clear Hallucinations: None Delusions: Not Present Thought Process: Distracted Thought Content: positive for [place] and positive for Poverty of Content Judgement: Fair Diagnostics Vital Signs (24Hr): Vital Signs - 24 hr 02/03/24 09:15 Temperature 97.1 F Pulse Rate 74 Respiratory Rate 20 Blood Pressure 151/67 H Pulse Oximetry 97 Oxygen Delivery Method Room Air BMI result Body Mass Index 30.0 Labs 01/06/24 07:28 02/03/24 08:03 Labs: Laboratory Results - last 48 hr 02/02/24 02/02/24 02/03/24 05:13 20:08 06:45 Creatinine Estim Creat Clear Calc Estimated GFR POC Glucose 103 158 H 98 02/03/24 02/03/24 08:03 20:05 Creatinine 1.04 Estim Creat Clear Calc 42.5 Estimated GFR 50 POC Glucose 142 H Medications Medications Current Medications Acetaminophen (Acetaminophen 325 Mg Tablet) 650 mg PO Q6H PRN PRN Reason: Headache/Pain Mild Scale (1-3) Last Admin: 02/03/24 20:06 Dose: 650 mg Al Hydroxide/Mg Hydroxide (Magnesium Hydrox/Alum Hydrox 30 Ml Oral.Susp) 30 ml PO Q6H PRN PRN Reason: Heartburn/Nausea Allopurinol (Allopurinol 100 Mg Tablet) 100 mg PO DAILY [facility] Last Admin: 02/03/24 09:19 Dose: 100 mg Amlodipine Besylate (Amlodipine Besylate 2.5 Mg Tablet) 2.5 mg PO DAILY [facility]; Protocol Last Admin: 02/03/24 09:18 Dose: 2.5 mg Artificial Tears (Artificial Tears 15 Ml Drops) 2 drop EYE-BOTH Q4H PRN PRN Reason: Dry Eyes Last Admin: 01/10/24 09:25 Dose: 2 drop Atorvastatin Calcium (Atorvastatin Calcium 10 Mg Tablet) 10 mg PO BEDTIME [facility] Last Admin: 02/03/24 20:07 Dose: 10 mg Cyclobenzaprine HCl (Cyclobenzaprine Hcl 5 Mg Tablet) 5 mg PO TID PRN PRN Reason: back spasm Last Admin: 01/18/24 11:39 Dose: 5 mg Diphenoxylate HCl/Atropine (Diphenoxylate/Atrop 2.5/0.025 Tablet) 1 tab PO DAILY PRN PRN Reason: loose stools Donepezil HCl (Donepezil Hcl 5 Mg Tablet) 5 mg PO BEDTIME [facility] Last Admin: 02/03/24 20:07 Dose: 5 mg Escitalopram Oxalate (Escitalopram Oxalate 10 Mg Tablet) 10 mg PO DAILY [facility] Last Admin: 02/03/24 09:19 Dose: 10 mg Levothyroxine Sodium (Levothyroxine Sodium 88 Mcg Tablet) 88 mcg PO DAILY@0600 [facility] Last Admin: 02/03/24 06:49 Dose: 88 mcg Loperamide HCl (Loperamide Hcl 2 Mg Capsule) 2 mg PO Q4H PRN PRN Reason: Loose Stool Lorazepam (Lorazepam 0.5 Mg Tablet) 0.5 mg PO DAILY PRN PRN Reason: Anxiety Last Admin: 01/29/24 09:27 Dose: 0.5 mg Magnesium Hydroxide (Milk Of Magnesia 30 Ml Oral.Susp) 30 ml PO DAILY PRN PRN Reason: Constipation Memantine (Memantine Hcl 5 Mg Tablet) 5 mg PO DAILY [facility] Last Admin: 02/03/24 09:18 Dose: 5 mg Metformin HCl (Metformin Hcl Er 750 Mg Tab.Er.24h) 750 mg PO BEDTIME [facility] Last Admin: 02/03/24 20:07 Dose: 750 mg Pt Own (Cyclosporine ([Restasis] 1 Drop)) 1 drop EYE-BOTH BID [facility] Last Admin: 02/03/24 20:05 Dose: 1 drop Olanzapine (Olanzapine 2.5 Mg Tablet) 2.5 mg PO Q4H PRN PRN Reason: agitation/acute psychosis Simethicone (Simethicone 80 Mg Tab.Chew) 80 mg PO QIDWMHS PRN PRN Reason: bloating Last Admin: 02/03/24 20:07 Dose: 80 mg Sitagliptin Phosphate (Sitagliptin Phosphate 100 Mg Tablet) 100 mg PO DAILY [facility] Last Admin: 02/03/24 09:18 Dose: 100 mg Trazodone HCl (Trazodone Hcl 50 Mg Tablet) 50 mg PO BEDTIME MRX1 PRN PRN Reason: Insomnia Vitamin D (Cholecalciferol (Vitamin D3) 25 Mcg Tablet) 25 mcg PO DAILY [facility] Last Admin: 02/03/24 09:18 Dose: 25 mcg Zolpidem Tartrate (Zolpidem Tartrate 5 Mg Tablet) 5 mg PO BEDTIME [facility] Last Admin: 02/03/24 20:07 Dose: 5 mg Allergies Allergies Allergy/AdvReac Type Severity Reaction Status Date / Time codeine Allergy Unknown Verified 12/07/23 20:27 Assessment & Plan Assessment & Plan (1) Dementia with psychotic disturbance: Status: Acute Code(s): F03.92 - Unspecified dementia, unspecified severity, with psychotic disturbance Plan Mrs. Jin is a 83 year-old woman with hx of vascular dementia with delusions of having an affair and some paranoid delusions. Some insight that this may not be the case but pt very much believes and takes action based on delusion despite here reporting that it may not be happening. It is unclear report from [facility] as to suicidal ideation. no indication of imminent harm to self or others, but collateral information is pending from family. May consider antipsychotic. PLAN 1. Restart Namenda. 2. Rexulti was started and increase it to 0.5 p.o. b.i.d. at this point. We are discontinued it on December 18 since the patient has refused to take it and there is no evidence of assaultive behavior. 3. Information of healthcare proxy. 4. Reassessment with results. 5. Waiting for placement 6. Waiting for [facility] application clearance. Reason for continued inpatient stay Substantial Risk for: inability to function and rapid decompensation Time Spent With Patient Time: Total time managing care of this patient today ____ minutes.
[2024-02-04] MEDS: Levothyroxine Sodium 88 MCG TABLET PO (06:39)
[2024-02-04 06:56] LABS: Glucose, Whole Blood 102 mg/dL (60-115)
[2024-02-04 08:10] VITALS: BP 126/62; PULSE 70; RESP 18; TEMP 36.6; O2SAT 96
[2024-02-04] MEDS: Memantine HCl 5 MG TABLET PO (08:57)
[2024-02-04] MEDS: Simethicone 80 MG TAB.CHEW PO (08:57)
[2024-02-04] MEDS: SITagliptin Phosphate 100 MG TABLET PO (08:57)
[2024-02-04] MEDS: Escitalopram Oxalate 10 MG TABLET PO (08:57)
[2024-02-04] MEDS: Cholecalciferol (Vitamin D3) 25 MCG TABLET PO (08:57)
[2024-02-04] MEDS: Acetaminophen 325 MG TABLET 650 MG PO (08:57)
[2024-02-04] MEDS: allopurinoL 100 MG TABLET PO (08:57)
[2024-02-04] MEDS: CYCLOSPORINE 1 EACH EYE-BOTH ×2 (08:58→20:47)
[2024-02-04] MEDS: amLODIPine Besylate 2.5 MG TABLET PO (08:58)
--- NOTE | 2024-02-04 15:35 | HO.PSYCHPN ---
Subjective Subjective Date of Service: 02/04/24 Reason For Visit: psychosis Interim History: cheerful, pleasant. no questions or complaints. per staff, refusing to walk, using only wheelchair, intentionally defecates and urinates in her pants. otherwise no behavioral concerns. Mental Status Exam Mental Status Exam Patient Appearance: Well Grooomed and Appropriate Patient Orientation: Person and Situation Level of Consciousness: Awake and Appropriate Patient Behavior: Guarded and Passive Mood Description: Withdrawn Affect Description: Happy Patient Cognition Impaired: Yes Ability to Follow Directions: Good Speech Pattern: Clear Hallucinations: None Delusions: Not Present Thought Process: Distracted Thought Content: positive for [place] and positive for Poverty of Content Judgement: Fair Diagnostics Vital Signs (24Hr): Vital Signs - 24 hr 02/03/24 20:00 02/04/24 08:10 Temperature 97.3 F 97.9 F Pulse Rate 68 70 Respiratory Rate 19 18 Blood Pressure 125/58 L 126/62 Pulse Oximetry 97 96 Oxygen Delivery Method Room Air Room Air BMI result Body Mass Index 30.0 Labs 01/06/24 07:28 02/03/24 08:03 Labs: Laboratory Results - last 48 hr 02/02/24 02/03/24 02/03/24 20:08 06:45 08:03 Creatinine 1.04 Estim Creat Clear Calc 42.5 Estimated GFR 50 POC Glucose 158 H 98 02/03/24 02/04/24 20:05 06:43 Creatinine Estim Creat Clear Calc Estimated GFR POC Glucose 142 H 102 Medications Medications Current Medications Acetaminophen (Acetaminophen 325 Mg Tablet) 650 mg PO Q6H PRN PRN Reason: Headache/Pain Mild Scale (1-3) Last Admin: 02/04/24 08:57 Dose: 650 mg Al Hydroxide/Mg Hydroxide (Magnesium Hydrox/Alum Hydrox 30 Ml Oral.Susp) 30 ml PO Q6H PRN PRN Reason: Heartburn/Nausea Allopurinol (Allopurinol 100 Mg Tablet) 100 mg PO DAILY [facility] Last Admin: 02/04/24 08:57 Dose: 100 mg Amlodipine Besylate (Amlodipine Besylate 2.5 Mg Tablet) 2.5 mg PO DAILY [facility]; Protocol Last Admin: 02/04/24 08:58 Dose: 2.5 mg Artificial Tears (Artificial Tears 15 Ml Drops) 2 drop EYE-BOTH Q4H PRN PRN Reason: Dry Eyes Last Admin: 01/10/24 09:25 Dose: 2 drop Atorvastatin Calcium (Atorvastatin Calcium 10 Mg Tablet) 10 mg PO BEDTIME [facility] Last Admin: 02/03/24 20:07 Dose: 10 mg Cyclobenzaprine HCl (Cyclobenzaprine Hcl 5 Mg Tablet) 5 mg PO TID PRN PRN Reason: back spasm Last Admin: 01/18/24 11:39 Dose: 5 mg Diphenoxylate HCl/Atropine (Diphenoxylate/Atrop 2.5/0.025 Tablet) 1 tab PO DAILY PRN PRN Reason: loose stools Donepezil HCl (Donepezil Hcl 5 Mg Tablet) 5 mg PO BEDTIME [facility] Last Admin: 02/03/24 20:07 Dose: 5 mg Escitalopram Oxalate (Escitalopram Oxalate 10 Mg Tablet) 10 mg PO DAILY [facility] Last Admin: 02/04/24 08:57 Dose: 10 mg Levothyroxine Sodium (Levothyroxine Sodium 88 Mcg Tablet) 88 mcg PO DAILY@0600 [facility] Last Admin: 02/04/24 06:39 Dose: 88 mcg Loperamide HCl (Loperamide Hcl 2 Mg Capsule) 2 mg PO Q4H PRN PRN Reason: Loose Stool Lorazepam (Lorazepam 0.5 Mg Tablet) 0.5 mg PO DAILY PRN PRN Reason: Anxiety Last Admin: 01/29/24 09:27 Dose: 0.5 mg Magnesium Hydroxide (Milk Of Magnesia 30 Ml Oral.Susp) 30 ml PO DAILY PRN PRN Reason: Constipation Memantine (Memantine Hcl 5 Mg Tablet) 5 mg PO DAILY [facility] Last Admin: 02/04/24 08:57 Dose: 5 mg Metformin HCl (Metformin Hcl Er 750 Mg Tab.Er.24h) 750 mg PO BEDTIME [facility] Last Admin: 02/03/24 20:07 Dose: 750 mg Pt Own (Cyclosporine ([Restasis] 1 Drop)) 1 drop EYE-BOTH BID [facility] Last Admin: 02/04/24 08:58 Dose: 1 drop Olanzapine (Olanzapine 2.5 Mg Tablet) 2.5 mg PO Q4H PRN PRN Reason: agitation/acute psychosis Simethicone (Simethicone 80 Mg Tab.Chew) 80 mg PO QIDWMHS PRN PRN Reason: bloating Last Admin: 02/04/24 08:57 Dose: 80 mg Sitagliptin Phosphate (Sitagliptin Phosphate 100 Mg Tablet) 100 mg PO DAILY [facility] Last Admin: 02/04/24 08:57 Dose: 100 mg Trazodone HCl (Trazodone Hcl 50 Mg Tablet) 50 mg PO BEDTIME MRX1 PRN PRN Reason: Insomnia Vitamin D (Cholecalciferol (Vitamin D3) 25 Mcg Tablet) 25 mcg PO DAILY [facility] Last Admin: 02/04/24 08:57 Dose: 25 mcg Zolpidem Tartrate (Zolpidem Tartrate 5 Mg Tablet) 5 mg PO BEDTIME [facility] Last Admin: 02/03/24 20:07 Dose: 5 mg Allergies Allergies Allergy/AdvReac Type Severity Reaction Status Date / Time codeine Allergy Unknown Verified 12/07/23 20:27 Assessment & Plan Assessment & Plan (1) Dementia with psychotic disturbance: Status: Acute Code(s): F03.92 - Unspecified dementia, unspecified severity, with psychotic disturbance Plan Mrs. Jin is a 83 year-old woman with hx of vascular dementia with delusions of having an affair and some paranoid delusions. Some insight that this may not be the case but pt very much believes and takes action based on delusion despite here reporting that it may not be happening. It is unclear report from [facility] as to suicidal ideation. no indication of imminent harm to self or others, but collateral information is pending from family. May consider antipsychotic. PLAN 1. Restart Namenda. 2. Rexulti was started and increase it to 0.5 p.o. b.i.d. at this point. We are discontinued it on December 18 since the patient has refused to take it and there is no evidence of assaultive behavior. 3. Information of healthcare proxy. 4. Reassessment with results. 5. Waiting for placement 6. Waiting for [facility] application clearance. Reason for continued inpatient stay Substantial Risk for: inability to function and rapid decompensation Time Spent With Patient Time: Total time managing care of this patient today ____ minutes.
[2024-02-04 19:54] LABS: Glucose, Whole Blood 171 mg/dL (60-115)
[2024-02-04 20:00] VITALS: BP 121/57; PULSE 70; RESP 16; TEMP 36.6; O2SAT 95
[2024-02-04] MEDS: Donepezil HCl 5 MG TABLET PO (20:47)
[2024-02-04] MEDS: Atorvastatin Calcium 10 MG TABLET PO (20:47)
[2024-02-04] MEDS: Zolpidem Tartrate 5 MG TABLET PO (20:47)
[2024-02-04] MEDS: metFORMIN HCl ER 750 MG TAB.ER.24H PO (20:47)
[2024-02-05] MEDS: Levothyroxine Sodium 88 MCG TABLET PO (06:38)
[2024-02-05 06:49] LABS: Glucose, Whole Blood 114 mg/dL (60-115)
[2024-02-05 08:00] VITALS: BP 137/59; PULSE 67; RESP 17; TEMP 36.6; O2SAT 98
[2024-02-05] MEDS: SITagliptin Phosphate 100 MG TABLET PO (08:04)
[2024-02-05] MEDS: Escitalopram Oxalate 10 MG TABLET PO (08:04)
[2024-02-05] MEDS: allopurinoL 100 MG TABLET PO (08:04)
[2024-02-05] MEDS: Memantine HCl 5 MG TABLET PO (08:04)
[2024-02-05] MEDS: amLODIPine Besylate 2.5 MG TABLET PO (08:04)
[2024-02-05] MEDS: Cholecalciferol (Vitamin D3) 25 MCG TABLET PO (08:04)
[2024-02-05] MEDS: CYCLOSPORINE 1 EACH EYE-BOTH ×2 (08:06→21:08)
[2024-02-05] MEDS: Simethicone 80 MG TAB.CHEW PO (08:51)
[2024-02-05] MEDS: Acetaminophen 325 MG TABLET 650 MG PO (08:51)
--- NOTE | 2024-02-05 17:09 | P.PNPSI_ITS ---
Subjective Subjective Date of Service: 02/05/24 Reason For Visit: psychosis Interim History: calm, pleasant, cooperative. per staff, no notable events or behaviors. Mental Status Exam Mental Status Exam Patient Appearance: Well Grooomed and Appropriate Patient Orientation: Person and Situation Level of Consciousness: Awake and Appropriate Patient Behavior: Guarded and Passive Mood Description: Withdrawn Affect Description: Happy Patient Cognition Impaired: Yes Ability to Follow Directions: Good Speech Pattern: Clear Hallucinations: None Delusions: Not Present Thought Process: Distracted Thought Content: positive for [place] and positive for Poverty of Content Judgement: Fair Diagnostics Vital Signs (24Hr): Vital Signs - 24 hr 02/04/24 20:00 02/05/24 08:00 Temperature 97.9 F 97.8 F Pulse Rate 70 67 Respiratory Rate 16 17 Blood Pressure 121/57 L 137/59 L Pulse Oximetry 95 98 Oxygen Delivery Method Room Air Room Air BMI result Body Mass Index 30.0 Labs 01/06/24 07:28 02/03/24 08:03 Labs: Laboratory Results - last 48 hr 02/03/24 02/04/24 02/04/24 20:05 06:43 19:43 POC Glucose 142 H 102 171 H 02/05/24 06:38 POC Glucose 114 Medications Medications Current Medications Acetaminophen (Acetaminophen 325 Mg Tablet) 650 mg PO Q6H PRN PRN Reason: Headache/Pain Mild Scale (1-3) Last Admin: 02/05/24 08:51 Dose: 650 mg Al Hydroxide/Mg Hydroxide (Magnesium Hydrox/Alum Hydrox 30 Ml Oral.Susp) 30 ml PO Q6H PRN PRN Reason: Heartburn/Nausea Allopurinol (Allopurinol 100 Mg Tablet) 100 mg PO DAILY [facility] Last Admin: 02/05/24 08:04 Dose: 100 mg Amlodipine Besylate (Amlodipine Besylate 2.5 Mg Tablet) 2.5 mg PO DAILY [facility]; Protocol Last Admin: 02/05/24 08:04 Dose: 2.5 mg Artificial Tears (Artificial Tears 15 Ml Drops) 2 drop EYE-BOTH Q4H PRN PRN Reason: Dry Eyes Last Admin: 01/10/24 09:25 Dose: 2 drop Atorvastatin Calcium (Atorvastatin Calcium 10 Mg Tablet) 10 mg PO BEDTIME [facility] Last Admin: 02/04/24 20:47 Dose: 10 mg Cyclobenzaprine HCl (Cyclobenzaprine Hcl 5 Mg Tablet) 5 mg PO TID PRN PRN Reason: back spasm Last Admin: 01/18/24 11:39 Dose: 5 mg Diphenoxylate HCl/Atropine (Diphenoxylate/Atrop 2.5/0.025 Tablet) 1 tab PO DAILY PRN PRN Reason: loose stools Donepezil HCl (Donepezil Hcl 5 Mg Tablet) 5 mg PO BEDTIME [facility] Last Admin: 02/04/24 20:47 Dose: 5 mg Escitalopram Oxalate (Escitalopram Oxalate 10 Mg Tablet) 10 mg PO DAILY [facility] Last Admin: 02/05/24 08:04 Dose: 10 mg Levothyroxine Sodium (Levothyroxine Sodium 88 Mcg Tablet) 88 mcg PO DAILY@0600 [facility] Last Admin: 02/05/24 06:38 Dose: 88 mcg Loperamide HCl (Loperamide Hcl 2 Mg Capsule) 2 mg PO Q4H PRN PRN Reason: Loose Stool Lorazepam (Lorazepam 0.5 Mg Tablet) 0.5 mg PO DAILY PRN PRN Reason: Anxiety Last Admin: 01/29/24 09:27 Dose: 0.5 mg Magnesium Hydroxide (Milk Of Magnesia 30 Ml Oral.Susp) 30 ml PO DAILY PRN PRN Reason: Constipation Memantine (Memantine Hcl 5 Mg Tablet) 5 mg PO DAILY [facility] Last Admin: 02/05/24 08:04 Dose: 5 mg Metformin HCl (Metformin Hcl Er 750 Mg Tab.Er.24h) 750 mg PO BEDTIME [facility] Last Admin: 02/04/24 20:47 Dose: 750 mg Pt Own (Cyclosporine ([Restasis] 1 Drop)) 1 drop EYE-BOTH BID [facility] Last Admin: 02/05/24 08:06 Dose: 1 drop Olanzapine (Olanzapine 2.5 Mg Tablet) 2.5 mg PO Q4H PRN PRN Reason: agitation/acute psychosis Simethicone (Simethicone 80 Mg Tab.Chew) 80 mg PO QIDWMHS PRN PRN Reason: bloating Last Admin: 02/05/24 08:51 Dose: 80 mg Sitagliptin Phosphate (Sitagliptin Phosphate 100 Mg Tablet) 100 mg PO DAILY [facility] Last Admin: 02/05/24 08:04 Dose: 100 mg Trazodone HCl (Trazodone Hcl 50 Mg Tablet) 50 mg PO BEDTIME MRX1 PRN PRN Reason: Insomnia Vitamin D (Cholecalciferol (Vitamin D3) 25 Mcg Tablet) 25 mcg PO DAILY [facility] Last Admin: 02/05/24 08:04 Dose: 25 mcg Zolpidem Tartrate (Zolpidem Tartrate 5 Mg Tablet) 5 mg PO BEDTIME [facility] Last Admin: 02/04/24 20:47 Dose: 5 mg Allergies Allergies Allergy/AdvReac Type Severity Reaction Status Date / Time codeine Allergy Unknown Verified 12/07/23 20:27 Assessment & Plan Assessment & Plan (1) Dementia with psychotic disturbance: Status: Acute Code(s): F03.92 - Unspecified dementia, unspecified severity, with psychotic disturbance Plan Mrs. Jin is a 83 year-old woman with hx of vascular dementia with delusions of having an affair and some paranoid delusions. Some insight that this may not be the case but pt very much believes and takes action based on delusion despite here reporting that it may not be happening. It is unclear report from [facility] as to suicidal ideation. no indication of imminent harm to self or others, but collateral information is pending from family. May consider antipsychotic. PLAN 1. Restart Namenda. 2. Rexulti was started and increase it to 0.5 p.o. b.i.d. at this point. We are discontinued it on December 18 since the patient has refused to take it and there is no evidence of assaultive behavior. 3. Information of healthcare proxy. 4. Reassessment with results. 5. Waiting for placement 6. Waiting for [facility] application clearance. Reason for continued inpatient stay Substantial Risk for: inability to function Time Spent With Patient Time: Total time managing care of this patient today ____ minutes.
[2024-02-05 20:00] VITALS: BP 136/60; PULSE 78; RESP 18; TEMP 36.6; O2SAT 97
[2024-02-05 20:27] LABS: Glucose, Whole Blood 165 mg/dL (60-115)
[2024-02-05] MEDS: traZODone HCL 50 MG TABLET PO (21:08)
[2024-02-05] MEDS: Zolpidem Tartrate 5 MG TABLET PO (21:09)
[2024-02-05] MEDS: Atorvastatin Calcium 10 MG TABLET PO (21:09)
[2024-02-05] MEDS: Donepezil HCl 5 MG TABLET PO (21:09)
[2024-02-05] MEDS: metFORMIN HCl ER 750 MG TAB.ER.24H PO (21:09)
[2024-02-06] MEDS: Levothyroxine Sodium 88 MCG TABLET PO (06:45)
[2024-02-06 06:57] LABS: Glucose, Whole Blood 131 mg/dL (60-115)
[2024-02-06 08:00] VITALS: BP 143/76; PULSE 80; RESP 18; TEMP 36.3; O2SAT 97
[2024-02-06 09:06] VITALS: BP 143/76
[2024-02-06] MEDS: amLODIPine Besylate 2.5 MG TABLET PO (09:06)
[2024-02-06] MEDS: Cholecalciferol (Vitamin D3) 25 MCG TABLET PO (09:07)
[2024-02-06] MEDS: allopurinoL 100 MG TABLET PO (09:07)
[2024-02-06] MEDS: Escitalopram Oxalate 10 MG TABLET PO (09:07)
[2024-02-06] MEDS: SITagliptin Phosphate 100 MG TABLET PO (09:07)
[2024-02-06] MEDS: CYCLOSPORINE 1 EACH EYE-BOTH ×2 (09:07→21:02)
[2024-02-06] MEDS: Memantine HCl 5 MG TABLET PO (09:07)
[2024-02-06] MEDS: Acetaminophen 325 MG TABLET 650 MG PO ×2 (09:18→20:58)
[2024-02-06] MEDS: Simethicone 80 MG TAB.CHEW PO ×2 (09:18→20:59)
--- NOTE | 2024-02-06 12:28 | HO.PSYCHPN ---
Subjective Subjective Date of Service: 02/06/24 Reason For Visit: psychosis Subjective Notes: Conditional Voluntary Interim History: The nursing staff reported the patient complained of back pain. His affect remains stable flat. She slept well last night. The social services has done several referrals to long-term care applications. On interview the patient denies new symptoms, waiting for placement. Mental Status Exam Mental Status Exam Patient Appearance: Well Grooomed and Appropriate Patient Orientation: Person and Situation Level of Consciousness: Awake and Appropriate Patient Behavior: Guarded and Passive Mood Description: Withdrawn Affect Description: Constricted Patient Cognition Impaired: Yes Ability to Follow Directions: Good Speech Pattern: Clear Hallucinations: None Delusions: Not Present Thought Process: Distracted and Slowed Thinking Thought Content: positive for [place] and positive for Poverty of Content Judgement: Fair Diagnostics Vital Signs (24Hr): Vital Signs - 24 hr 02/05/24 20:00 02/06/24 08:00 02/06/24 09:06 Temperature 97.8 F 97.4 F Pulse Rate 78 80 Respiratory Rate 18 18 Blood Pressure 136/60 143/76 H 143/76 H Pulse Oximetry 97 97 Oxygen Delivery Method Room Air Room Air BMI result Body Mass Index 30.0 Labs 01/06/24 07:28 02/03/24 08:03 Labs: Laboratory Results - last 48 hr 02/04/24 02/05/24 02/05/24 19:43 06:38 20:00 POC Glucose 171 H 114 165 H 02/06/24 06:41 POC Glucose 131 H Medications Medications Current Medications Acetaminophen (Acetaminophen 325 Mg Tablet) 650 mg PO Q6H PRN PRN Reason: Headache/Pain Mild Scale (1-3) Last Admin: 02/06/24 09:18 Dose: 650 mg Al Hydroxide/Mg Hydroxide (Magnesium Hydrox/Alum Hydrox 30 Ml Oral.Susp) 30 ml PO Q6H PRN PRN Reason: Heartburn/Nausea Allopurinol (Allopurinol 100 Mg Tablet) 100 mg PO DAILY [facility] Last Admin: 02/06/24 09:07 Dose: 100 mg Amlodipine Besylate (Amlodipine Besylate 2.5 Mg Tablet) 2.5 mg PO DAILY [facility]; Protocol Last Admin: 02/06/24 09:06 Dose: 2.5 mg Artificial Tears (Artificial Tears 15 Ml Drops) 2 drop EYE-BOTH Q4H PRN PRN Reason: Dry Eyes Last Admin: 01/10/24 09:25 Dose: 2 drop Atorvastatin Calcium (Atorvastatin Calcium 10 Mg Tablet) 10 mg PO BEDTIME [facility] Last Admin: 02/05/24 21:09 Dose: 10 mg Cyclobenzaprine HCl (Cyclobenzaprine Hcl 5 Mg Tablet) 5 mg PO TID PRN PRN Reason: back spasm Last Admin: 01/18/24 11:39 Dose: 5 mg Diphenoxylate HCl/Atropine (Diphenoxylate/Atrop 2.5/0.025 Tablet) 1 tab PO DAILY PRN PRN Reason: loose stools Donepezil HCl (Donepezil Hcl 5 Mg Tablet) 5 mg PO BEDTIME [facility] Last Admin: 02/05/24 21:09 Dose: 5 mg Escitalopram Oxalate (Escitalopram Oxalate 10 Mg Tablet) 10 mg PO DAILY [facility] Last Admin: 02/06/24 09:07 Dose: 10 mg Levothyroxine Sodium (Levothyroxine Sodium 88 Mcg Tablet) 88 mcg PO DAILY@0600 [facility] Last Admin: 02/06/24 06:45 Dose: 88 mcg Loperamide HCl (Loperamide Hcl 2 Mg Capsule) 2 mg PO Q4H PRN PRN Reason: Loose Stool Lorazepam (Lorazepam 0.5 Mg Tablet) 0.5 mg PO DAILY PRN PRN Reason: Anxiety Last Admin: 01/29/24 09:27 Dose: 0.5 mg Magnesium Hydroxide (Milk Of Magnesia 30 Ml Oral.Susp) 30 ml PO DAILY PRN PRN Reason: Constipation Memantine (Memantine Hcl 5 Mg Tablet) 5 mg PO DAILY [facility] Last Admin: 02/06/24 09:07 Dose: 5 mg Metformin HCl (Metformin Hcl Er 750 Mg Tab.Er.24h) 750 mg PO BEDTIME [facility] Last Admin: 02/05/24 21:09 Dose: 750 mg Pt Own (Cyclosporine ([Restasis] 1 Drop)) 1 drop EYE-BOTH BID [facility] Last Admin: 02/06/24 09:07 Dose: 1 drop Olanzapine (Olanzapine 2.5 Mg Tablet) 2.5 mg PO Q4H PRN PRN Reason: agitation/acute psychosis Simethicone (Simethicone 80 Mg Tab.Chew) 80 mg PO QIDWMHS PRN PRN Reason: bloating Last Admin: 02/06/24 09:18 Dose: 80 mg Sitagliptin Phosphate (Sitagliptin Phosphate 100 Mg Tablet) 100 mg PO DAILY [facility] Last Admin: 02/06/24 09:07 Dose: 100 mg Trazodone HCl (Trazodone Hcl 50 Mg Tablet) 50 mg PO BEDTIME [facility] PRN PRN Reason: Insomnia Last Admin: 02/05/24 21:08 Dose: 50 mg Vitamin D (Cholecalciferol (Vitamin D3) 25 Mcg Tablet) 25 mcg PO DAILY [facility] Last Admin: 02/06/24 09:07 Dose: 25 mcg Zolpidem Tartrate (Zolpidem Tartrate 5 Mg Tablet) 5 mg PO BEDTIME [facility] Last Admin: 02/05/24 21:09 Dose: 5 mg Allergies Allergies Allergy/AdvReac Type Severity Reaction Status Date / Time codeine Allergy Unknown Verified 12/07/23 20:27 Assessment & Plan Assessment & Plan (1) Dementia with psychotic disturbance: Status: Acute Code(s): F03.92 - Unspecified dementia, unspecified severity, with psychotic disturbance Plan Mrs. Jin is a 83 year-old woman with hx of vascular dementia with delusions of having an affair and some paranoid delusions. Some insight that this may not be the case but pt very much believes and takes action based on delusion despite here reporting that it may not be happening. It is unclear report from [facility] as to suicidal ideation. no indication of imminent harm to self or others, but collateral information is pending from family. May consider antipsychotic. PLAN 1. Restart Namenda. 2. Rexulti was started and increase it to 0.5 p.o. b.i.d. at this point. We are discontinued it on December 18 since the patient has refused to take it and there is no evidence of assaultive behavior. 3. Information of healthcare proxy. 4. Reassessment with results. 5. Waiting for placement 6. Waiting for [facility] application clearance. Reason for continued inpatient stay Substantial Risk for: inability to function, rapid decompensation and med/psych decompensation Time Spent With Patient Time: Total time managing care of this patient today __20__ minutes.
[2024-02-06 20:00] VITALS: BP 140/58; PULSE 87; RESP 16; TEMP 36.3; O2SAT 95
[2024-02-06 20:38] LABS: Glucose, Whole Blood 130 mg/dL (60-115)
[2024-02-06] MEDS: Cyclobenzaprine HCl 5 MG TABLET PO (20:58)
[2024-02-06] MEDS: metFORMIN HCl ER 750 MG TAB.ER.24H PO (20:58)
[2024-02-06] MEDS: Atorvastatin Calcium 10 MG TABLET PO (20:58)
[2024-02-06] MEDS: Zolpidem Tartrate 5 MG TABLET PO (20:59)
[2024-02-06] MEDS: Donepezil HCl 5 MG TABLET PO (20:59)
[2024-02-07] MEDS: Levothyroxine Sodium 88 MCG TABLET PO (05:54)
[2024-02-07 06:50] LABS: Glucose, Whole Blood 109 mg/dL (60-115)
[2024-02-07 08:05] VITALS: BP 117/68; PULSE 67; RESP 18; TEMP 36.6; O2SAT 97
[2024-02-07] MEDS: Acetaminophen 325 MG TABLET 650 MG PO ×2 (08:48→21:08)
[2024-02-07] MEDS: Escitalopram Oxalate 10 MG TABLET PO (08:49)
[2024-02-07] MEDS: CYCLOSPORINE 1 EACH EYE-BOTH ×2 (08:49→21:06)
[2024-02-07] MEDS: Simethicone 80 MG TAB.CHEW PO ×2 (08:49→21:08)
[2024-02-07] MEDS: Memantine HCl 5 MG TABLET PO (08:49)
[2024-02-07] MEDS: Cholecalciferol (Vitamin D3) 25 MCG TABLET PO (08:49)
[2024-02-07] MEDS: allopurinoL 100 MG TABLET PO (08:49)
[2024-02-07] MEDS: SITagliptin Phosphate 100 MG TABLET PO (08:49)
[2024-02-07] MEDS: amLODIPine Besylate 2.5 MG TABLET PO (08:49)
--- NOTE | 2024-02-07 15:18 | P.PNPSI_ITS ---
Subjective Subjective Date of Service: 02/07/24 Reason For Visit: psychosis Subjective Notes: Conditional Voluntary Interim History: The nursing staff reported no changes in her mental status compliant with treatment. On interview the patient denies new symptoms. Waiting for placement Mental Status Exam Mental Status Exam Patient Appearance: Appropriate Patient Orientation: Person and Situation Level of Consciousness: Awake and Appropriate Patient Behavior: Guarded and Passive Mood Description: Withdrawn Affect Description: Constricted Patient Cognition Impaired: Yes Ability to Follow Directions: Good Speech Pattern: Clear Hallucinations: None Delusions: Not Present Thought Process: Distracted and Slowed Thinking Thought Content: positive for [place] and positive for Poverty of Content Judgement: Fair Diagnostics Vital Signs (24Hr): Vital Signs - 24 hr 02/06/24 20:00 02/07/24 08:05 Temperature 97.4 F 97.9 F Pulse Rate 87 67 Respiratory Rate 16 18 Blood Pressure 140/58 H 117/68 Pulse Oximetry 95 97 Oxygen Delivery Method Room Air Room Air BMI result Body Mass Index 30.0 Labs 01/06/24 07:28 02/03/24 08:03 Labs: Laboratory Results - last 48 hr 02/05/24 02/06/24 02/06/24 20:00 06:41 20:20 POC Glucose 165 H 131 H 130 H 02/07/24 06:33 POC Glucose 109 Medications Medications Current Medications Acetaminophen (Acetaminophen 325 Mg Tablet) 650 mg PO Q6H PRN PRN Reason: Headache/Pain Mild Scale (1-3) Last Admin: 02/07/24 08:48 Dose: 650 mg Al Hydroxide/Mg Hydroxide (Magnesium Hydrox/Alum Hydrox 30 Ml Oral.Susp) 30 ml PO Q6H PRN PRN Reason: Heartburn/Nausea Allopurinol (Allopurinol 100 Mg Tablet) 100 mg PO DAILY [facility] Last Admin: 02/07/24 08:49 Dose: 100 mg Amlodipine Besylate (Amlodipine Besylate 2.5 Mg Tablet) 2.5 mg PO DAILY [facility]; Protocol Last Admin: 02/07/24 08:49 Dose: 2.5 mg Artificial Tears (Artificial Tears 15 Ml Drops) 2 drop EYE-BOTH Q4H PRN PRN Reason: Dry Eyes Last Admin: 01/10/24 09:25 Dose: 2 drop Atorvastatin Calcium (Atorvastatin Calcium 10 Mg Tablet) 10 mg PO BEDTIME [facility] Last Admin: 02/06/24 20:58 Dose: 10 mg Cyclobenzaprine HCl (Cyclobenzaprine Hcl 5 Mg Tablet) 5 mg PO TID PRN PRN Reason: back spasm Last Admin: 02/06/24 20:58 Dose: 5 mg Diphenoxylate HCl/Atropine (Diphenoxylate/Atrop 2.5/0.025 Tablet) 1 tab PO DAILY PRN PRN Reason: loose stools Donepezil HCl (Donepezil Hcl 5 Mg Tablet) 5 mg PO BEDTIME [facility] Last Admin: 02/06/24 20:59 Dose: 5 mg Escitalopram Oxalate (Escitalopram Oxalate 10 Mg Tablet) 10 mg PO DAILY [facility] Last Admin: 02/07/24 08:49 Dose: 10 mg Levothyroxine Sodium (Levothyroxine Sodium 88 Mcg Tablet) 88 mcg PO DAILY@0600 [facility] Last Admin: 02/07/24 05:54 Dose: 88 mcg Loperamide HCl (Loperamide Hcl 2 Mg Capsule) 2 mg PO Q4H PRN PRN Reason: Loose Stool Lorazepam (Lorazepam 0.5 Mg Tablet) 0.5 mg PO DAILY PRN PRN Reason: Anxiety Last Admin: 01/29/24 09:27 Dose: 0.5 mg Magnesium Hydroxide (Milk Of Magnesia 30 Ml Oral.Susp) 30 ml PO DAILY PRN PRN Reason: Constipation Memantine (Memantine Hcl 5 Mg Tablet) 5 mg PO DAILY [facility] Last Admin: 02/07/24 08:49 Dose: 5 mg Metformin HCl (Metformin Hcl Er 750 Mg Tab.Er.24h) 750 mg PO BEDTIME [facility] Last Admin: 02/06/24 20:58 Dose: 750 mg Pt Own (Cyclosporine ([Restasis] 1 Drop)) 1 drop EYE-BOTH BID [facility] Last Admin: 02/07/24 08:49 Dose: 1 drop Olanzapine (Olanzapine 2.5 Mg Tablet) 2.5 mg PO Q4H PRN PRN Reason: agitation/acute psychosis Simethicone (Simethicone 80 Mg Tab.Chew) 80 mg PO QIDWMHS PRN PRN Reason: bloating Last Admin: 02/07/24 08:49 Dose: 80 mg Sitagliptin Phosphate (Sitagliptin Phosphate 100 Mg Tablet) 100 mg PO DAILY [facility] Last Admin: 02/07/24 08:49 Dose: 100 mg Trazodone HCl (Trazodone Hcl 50 Mg Tablet) 50 mg PO BEDTIME [facility] PRN PRN Reason: Insomnia Last Admin: 02/05/24 21:08 Dose: 50 mg Vitamin D (Cholecalciferol (Vitamin D3) 25 Mcg Tablet) 25 mcg PO DAILY [facility] Last Admin: 02/07/24 08:49 Dose: 25 mcg Zolpidem Tartrate (Zolpidem Tartrate 5 Mg Tablet) 5 mg PO BEDTIME [facility] Last Admin: 02/06/24 20:59 Dose: 5 mg Allergies Allergies Allergy/AdvReac Type Severity Reaction Status Date / Time codeine Allergy Unknown Verified 12/07/23 20:27 Assessment & Plan Assessment & Plan (1) Dementia with psychotic disturbance: Status: Acute Code(s): F03.92 - Unspecified dementia, unspecified severity, with psychotic disturbance Plan Mrs. Jin is a 83 year-old woman with hx of vascular dementia with delusions of having an affair and some paranoid delusions. Some insight that this may not be the case but pt very much believes and takes action based on delusion despite here reporting that it may not be happening. It is unclear report from [facility] as to suicidal ideation. no indication of imminent harm to self or others, but collateral information is pending from family. May consider antipsychotic. PLAN 1. Restart Namenda. 2. Rexulti was started and increase it to 0.5 p.o. b.i.d. at this point. We are discontinued it on December 18 since the patient has refused to take it and there is no evidence of assaultive behavior. 3. Information of healthcare proxy. 4. Reassessment with results. 5. Waiting for placement 6. Waiting for [facility] application clearance. Reason for continued inpatient stay Substantial Risk for: inability to function, rapid decompensation and med/psych decompensation Time Spent With Patient Time: Total time managing care of this patient today __20__ minutes.
[2024-02-07 20:00] VITALS: BP 134/60; PULSE 67; RESP 16; TEMP 36.1; O2SAT 97
[2024-02-07] MEDS: Donepezil HCl 5 MG TABLET PO (21:07)
[2024-02-07] MEDS: metFORMIN HCl ER 750 MG TAB.ER.24H PO (21:07)
[2024-02-07] MEDS: Atorvastatin Calcium 10 MG TABLET PO (21:08)
[2024-02-07] MEDS: Zolpidem Tartrate 5 MG TABLET PO (21:08)
[2024-02-07 21:36] LABS: Glucose, Whole Blood 139 mg/dL (60-115)
[2024-02-08] MEDS: Levothyroxine Sodium 88 MCG TABLET PO (06:06)
[2024-02-08 06:45] LABS: Glucose, Whole Blood 100 mg/dL (60-115)
[2024-02-08 08:00] VITALS: BP 122/74; PULSE 86; RESP 14; TEMP 36; O2SAT 98
[2024-02-08] MEDS: Memantine HCl 5 MG TABLET PO (09:16)
[2024-02-08] MEDS: allopurinoL 100 MG TABLET PO (09:16)
[2024-02-08] MEDS: Cholecalciferol (Vitamin D3) 25 MCG TABLET PO (09:16)
[2024-02-08] MEDS: SITagliptin Phosphate 100 MG TABLET PO (09:17)
[2024-02-08] MEDS: amLODIPine Besylate 2.5 MG TABLET PO (09:17)
[2024-02-08] MEDS: Escitalopram Oxalate 10 MG TABLET PO (09:18)
[2024-02-08] MEDS: CYCLOSPORINE 1 EACH EYE-BOTH ×2 (09:19→20:16)
[2024-02-08] MEDS: Simethicone 80 MG TAB.CHEW PO ×2 (09:32→20:16)
[2024-02-08] MEDS: Acetaminophen 325 MG TABLET 650 MG PO ×2 (09:32→20:15)
--- NOTE | 2024-02-08 16:02 | P.PNPSI_ITS ---
Subjective Subjective Date of Service: 02/08/24 Reason For Visit: psychosis Subjective Notes: Conditional Voluntary Interim History: The nursing staff reported no changes in her mental status, waiting for placement. She slept well last night. On interview the patient denies new symptoms, waiting for placement Mental Status Exam Mental Status Exam Patient Appearance: Appropriate Patient Orientation: Person and Situation Level of Consciousness: Awake and Appropriate Patient Behavior: Guarded and Passive Mood Description: Withdrawn Affect Description: Constricted Patient Cognition Impaired: Yes Ability to Follow Directions: Good Speech Pattern: Clear Hallucinations: None Delusions: Not Present Thought Process: Distracted and Slowed Thinking Thought Content: positive for [place] and positive for Poverty of Content Judgement: Fair Diagnostics Vital Signs (24Hr): Vital Signs - 24 hr 02/07/24 20:00 02/08/24 08:00 Temperature 97 F 96.8 F Pulse Rate 67 86 Respiratory Rate 16 14 Blood Pressure 134/60 122/74 Pulse Oximetry 97 98 Oxygen Delivery Method Room Air Room Air BMI result Body Mass Index 30.0 Labs 01/06/24 07:28 02/03/24 08:03 Labs: Laboratory Results - last 48 hr 02/06/24 02/07/24 02/07/24 20:20 06:33 21:10 POC Glucose 130 H 109 139 H 02/08/24 06:40 POC Glucose 100 Medications Medications Current Medications Acetaminophen (Acetaminophen 325 Mg Tablet) 650 mg PO Q6H PRN PRN Reason: Headache/Pain Mild Scale (1-3) Last Admin: 02/08/24 09:32 Dose: 650 mg Al Hydroxide/Mg Hydroxide (Magnesium Hydrox/Alum Hydrox 30 Ml Oral.Susp) 30 ml PO Q6H PRN PRN Reason: Heartburn/Nausea Allopurinol (Allopurinol 100 Mg Tablet) 100 mg PO DAILY [facility] Last Admin: 02/08/24 09:16 Dose: 100 mg Amlodipine Besylate (Amlodipine Besylate 2.5 Mg Tablet) 2.5 mg PO DAILY [facility]; Protocol Last Admin: 02/08/24 09:17 Dose: 2.5 mg Artificial Tears (Artificial Tears 15 Ml Drops) 2 drop EYE-BOTH Q4H PRN PRN Reason: Dry Eyes Last Admin: 01/10/24 09:25 Dose: 2 drop Atorvastatin Calcium (Atorvastatin Calcium 10 Mg Tablet) 10 mg PO BEDTIME [facility] Last Admin: 02/07/24 21:08 Dose: 10 mg Cyclobenzaprine HCl (Cyclobenzaprine Hcl 5 Mg Tablet) 5 mg PO TID PRN PRN Reason: back spasm Last Admin: 02/06/24 20:58 Dose: 5 mg Diphenoxylate HCl/Atropine (Diphenoxylate/Atrop 2.5/0.025 Tablet) 1 tab PO DAILY PRN PRN Reason: loose stools Donepezil HCl (Donepezil Hcl 5 Mg Tablet) 5 mg PO BEDTIME [facility] Last Admin: 02/07/24 21:07 Dose: 5 mg Escitalopram Oxalate (Escitalopram Oxalate 10 Mg Tablet) 10 mg PO DAILY [facility] Last Admin: 02/08/24 09:18 Dose: 10 mg Levothyroxine Sodium (Levothyroxine Sodium 88 Mcg Tablet) 88 mcg PO DAILY@0600 [facility] Last Admin: 02/08/24 06:06 Dose: 88 mcg Loperamide HCl (Loperamide Hcl 2 Mg Capsule) 2 mg PO Q4H PRN PRN Reason: Loose Stool Lorazepam (Lorazepam 0.5 Mg Tablet) 0.5 mg PO DAILY PRN PRN Reason: Anxiety Last Admin: 01/29/24 09:27 Dose: 0.5 mg Magnesium Hydroxide (Milk Of Magnesia 30 Ml Oral.Susp) 30 ml PO DAILY PRN PRN Reason: Constipation Memantine (Memantine Hcl 5 Mg Tablet) 5 mg PO DAILY [facility] Last Admin: 02/08/24 09:16 Dose: 5 mg Metformin HCl (Metformin Hcl Er 750 Mg Tab.Er.24h) 750 mg PO BEDTIME [facility] Last Admin: 02/07/24 21:07 Dose: 750 mg Pt Own (Cyclosporine ([Restasis] 1 Drop)) 1 drop EYE-BOTH BID [facility] Last Admin: 02/08/24 09:19 Dose: 1 drop Olanzapine (Olanzapine 2.5 Mg Tablet) 2.5 mg PO Q4H PRN PRN Reason: agitation/acute psychosis Simethicone (Simethicone 80 Mg Tab.Chew) 80 mg PO QIDWMHS PRN PRN Reason: bloating Last Admin: 02/08/24 09:32 Dose: 80 mg Sitagliptin Phosphate (Sitagliptin Phosphate 100 Mg Tablet) 100 mg PO DAILY [facility] Last Admin: 02/08/24 09:17 Dose: 100 mg Trazodone HCl (Trazodone Hcl 50 Mg Tablet) 50 mg PO BEDTIME MRX1 PRN PRN Reason: Insomnia Last Admin: 02/05/24 21:08 Dose: 50 mg Vitamin D (Cholecalciferol (Vitamin D3) 25 Mcg Tablet) 25 mcg PO DAILY [facility] Last Admin: 02/08/24 09:16 Dose: 25 mcg Zolpidem Tartrate (Zolpidem Tartrate 5 Mg Tablet) 5 mg PO BEDTIME [facility] Last Admin: 02/07/24 21:08 Dose: 5 mg Allergies Allergies Allergy/AdvReac Type Severity Reaction Status Date / Time codeine Allergy Unknown Verified 12/07/23 20:27 Assessment & Plan Assessment & Plan (1) Dementia with psychotic disturbance: Status: Acute Code(s): F03.92 - Unspecified dementia, unspecified severity, with psychotic disturbance Plan Mrs. Jin is a 83 year-old woman with hx of vascular dementia with delusions of having an affair and some paranoid delusions. Some insight that this may not be the case but pt very much believes and takes action based on delusion despite here reporting that it may not be happening. It is unclear report from [facility] as to suicidal ideation. no indication of imminent harm to self or others, but collateral information is pending from family. May consider antipsychotic. PLAN 1. Restart Namenda. 2. Rexulti was started and increase it to 0.5 p.o. b.i.d. at this point. We are discontinued it on December 18 since the patient has refused to take it and there is no evidence of assaultive behavior. 3. Information of healthcare proxy. 4. Reassessment with results. 5. Waiting for placement 6. Waiting for [facility] application clearance. Reason for continued inpatient stay Substantial Risk for: inability to function, rapid decompensation and med/psych decompensation Time Spent With Patient Time: Total time managing care of this patient today __20__ minutes.
[2024-02-08 20:00] VITALS: BP 126/57; PULSE 72; RESP 16; TEMP 36.5; O2SAT 96
[2024-02-08 20:14] LABS: Glucose, Whole Blood 181 mg/dL (60-115)
[2024-02-08] MEDS: Donepezil HCl 5 MG TABLET PO (20:15)
[2024-02-08] MEDS: Atorvastatin Calcium 10 MG TABLET PO (20:15)
[2024-02-08] MEDS: metFORMIN HCl ER 750 MG TAB.ER.24H PO (20:15)
[2024-02-08] MEDS: Zolpidem Tartrate 5 MG TABLET PO (20:15)
[2024-02-09] MEDS: Levothyroxine Sodium 88 MCG TABLET PO (06:40)
[2024-02-09 06:57] LABS: Glucose, Whole Blood 114 mg/dL (60-115)
[2024-02-09 08:00] VITALS: BP 152/68; PULSE 69; RESP 17; TEMP 36.4; O2SAT 98
[2024-02-09] MEDS: allopurinoL 100 MG TABLET PO (08:24)
[2024-02-09] MEDS: amLODIPine Besylate 2.5 MG TABLET PO (08:24)
[2024-02-09] MEDS: Acetaminophen 325 MG TABLET 650 MG PO ×2 (08:24→20:10)
[2024-02-09] MEDS: Memantine HCl 5 MG TABLET PO (08:24)
[2024-02-09] MEDS: Escitalopram Oxalate 10 MG TABLET PO (08:24)
[2024-02-09] MEDS: SITagliptin Phosphate 100 MG TABLET PO (08:24)
[2024-02-09] MEDS: Cholecalciferol (Vitamin D3) 25 MCG TABLET PO (08:24)
[2024-02-09] MEDS: Simethicone 80 MG TAB.CHEW PO ×2 (08:24→20:11)
[2024-02-09] MEDS: CYCLOSPORINE 1 EACH EYE-BOTH ×2 (08:26→20:10)
[2024-02-09] MEDS: Diphenoxylate/Atrop 2.5/0.025 TABLET 1 TAB PO (10:32)
--- NOTE | 2024-02-09 14:01 | HO.PSYCHPN ---
Subjective Subjective Date of Service: 02/09/24 Reason For Visit: psychosis Subjective Notes: Conditional Voluntary Interim History: The nursing staff reported no changes in her mental status. Today she had several episodes of diarrhea. We have called infectious control since we suspect of an outbreak of norovirus. Currently the patient has stable vital signs. On interview the patient denies new symptoms, waiting for placement. Mental Status Exam Mental Status Exam Patient Appearance: Well Grooomed and Appropriate Patient Orientation: Person and Situation Level of Consciousness: Awake and Appropriate Patient Behavior: Guarded and Passive Mood Description: Withdrawn Affect Description: Constricted Patient Cognition Impaired: Yes Ability to Follow Directions: Good Speech Pattern: Clear Hallucinations: None Delusions: Not Present Thought Process: Distracted Thought Content: positive for [place] and positive for Poverty of Content Judgement: Fair Diagnostics Vital Signs (24Hr): Vital Signs - 24 hr 02/08/24 20:00 02/09/24 08:00 Temperature 97.7 F 97.5 F Pulse Rate 72 69 Respiratory Rate 16 17 Blood Pressure 126/57 L 152/68 H Pulse Oximetry 96 98 Oxygen Delivery Method Room Air Room Air BMI result Body Mass Index 30.0 Labs 01/06/24 07:28 02/03/24 08:03 Labs: Laboratory Results - last 48 hr 02/07/24 02/08/24 02/08/24 21:10 06:40 20:06 POC Glucose 139 H 100 181 H 02/09/24 06:40 POC Glucose 114 Medications Medications Current Medications Acetaminophen (Acetaminophen 325 Mg Tablet) 650 mg PO Q6H PRN PRN Reason: Headache/Pain Mild Scale (1-3) Last Admin: 02/09/24 08:24 Dose: 650 mg Al Hydroxide/Mg Hydroxide (Magnesium Hydrox/Alum Hydrox 30 Ml Oral.Susp) 30 ml PO Q6H PRN PRN Reason: Heartburn/Nausea Allopurinol (Allopurinol 100 Mg Tablet) 100 mg PO DAILY [facility] Last Admin: 02/09/24 08:24 Dose: 100 mg Amlodipine Besylate (Amlodipine Besylate 2.5 Mg Tablet) 2.5 mg PO DAILY [facility]; Protocol Last Admin: 02/09/24 08:24 Dose: 2.5 mg Artificial Tears (Artificial Tears 15 Ml Drops) 2 drop EYE-BOTH Q4H PRN PRN Reason: Dry Eyes Last Admin: 01/10/24 09:25 Dose: 2 drop Atorvastatin Calcium (Atorvastatin Calcium 10 Mg Tablet) 10 mg PO BEDTIME [facility] Last Admin: 02/08/24 20:15 Dose: 10 mg Cyclobenzaprine HCl (Cyclobenzaprine Hcl 5 Mg Tablet) 5 mg PO TID PRN PRN Reason: back spasm Last Admin: 02/06/24 20:58 Dose: 5 mg Diphenoxylate HCl/Atropine (Diphenoxylate/Atrop 2.5/0.025 Tablet) 1 tab PO DAILY PRN PRN Reason: loose stools Last Admin: 02/09/24 10:32 Dose: 1 tab Donepezil HCl (Donepezil Hcl 5 Mg Tablet) 5 mg PO BEDTIME [facility] Last Admin: 02/08/24 20:15 Dose: 5 mg Escitalopram Oxalate (Escitalopram Oxalate 10 Mg Tablet) 10 mg PO DAILY [facility] Last Admin: 02/09/24 08:24 Dose: 10 mg Levothyroxine Sodium (Levothyroxine Sodium 88 Mcg Tablet) 88 mcg PO DAILY@0600 [facility] Last Admin: 02/09/24 06:40 Dose: 88 mcg Loperamide HCl (Loperamide Hcl 2 Mg Capsule) 2 mg PO Q4H PRN PRN Reason: Loose Stool Lorazepam (Lorazepam 0.5 Mg Tablet) 0.5 mg PO DAILY PRN PRN Reason: Anxiety Last Admin: 01/29/24 09:27 Dose: 0.5 mg Magnesium Hydroxide (Milk Of Magnesia 30 Ml Oral.Susp) 30 ml PO DAILY PRN PRN Reason: Constipation Memantine (Memantine Hcl 5 Mg Tablet) 5 mg PO DAILY [facility] Last Admin: 02/09/24 08:24 Dose: 5 mg Metformin HCl (Metformin Hcl Er 750 Mg Tab.Er.24h) 750 mg PO BEDTIME [facility] Last Admin: 02/08/24 20:15 Dose: 750 mg Pt Own (Cyclosporine ([Restasis] 1 Drop)) 1 drop EYE-BOTH BID [facility] Last Admin: 02/09/24 08:26 Dose: 1 drop Olanzapine (Olanzapine 2.5 Mg Tablet) 2.5 mg PO Q4H PRN PRN Reason: agitation/acute psychosis Simethicone (Simethicone 80 Mg Tab.Chew) 80 mg PO QIDWMHS PRN PRN Reason: bloating Last Admin: 02/09/24 08:24 Dose: 80 mg Sitagliptin Phosphate (Sitagliptin Phosphate 100 Mg Tablet) 100 mg PO DAILY [facility] Last Admin: 02/09/24 08:24 Dose: 100 mg Trazodone HCl (Trazodone Hcl 50 Mg Tablet) 50 mg PO BEDTIME MRX1 PRN PRN Reason: Insomnia Last Admin: 02/05/24 21:08 Dose: 50 mg Vitamin D (Cholecalciferol (Vitamin D3) 25 Mcg Tablet) 25 mcg PO DAILY [facility] Last Admin: 02/09/24 08:24 Dose: 25 mcg Zolpidem Tartrate (Zolpidem Tartrate 5 Mg Tablet) 5 mg PO BEDTIME [facility] Last Admin: 02/08/24 20:15 Dose: 5 mg Allergies Allergies Allergy/AdvReac Type Severity Reaction Status Date / Time codeine Allergy Unknown Verified 12/07/23 20:27 Assessment & Plan Assessment & Plan (1) Dementia with psychotic disturbance: Status: Acute Code(s): F03.92 - Unspecified dementia, unspecified severity, with psychotic disturbance Plan Mrs. Jin is a 83 year-old woman with hx of vascular dementia with delusions of having an affair and some paranoid delusions. Some insight that this may not be the case but pt very much believes and takes action based on delusion despite here reporting that it may not be happening. It is unclear report from [facility] as to suicidal ideation. no indication of imminent harm to self or others, but collateral information is pending from family. May consider antipsychotic. PLAN 1. Restart Namenda. 2. Rexulti was started and increase it to 0.5 p.o. b.i.d. at this point. We are discontinued it on December 18 since the patient has refused to take it and there is no evidence of assaultive behavior. 3. Information of healthcare proxy. 4. Reassessment with results. 5. Waiting for placement 6. Waiting for [facility] application clearance. Reason for continued inpatient stay Substantial Risk for: inability to function, rapid decompensation and med/psych decompensation Time Spent With Patient Time: Total time managing care of this patient today __20__ minutes.
[2024-02-09 19:49] LABS: Glucose, Whole Blood 176 mg/dL (60-115)
[2024-02-09 20:00] VITALS: BP 114/56; PULSE 72; RESP 18; TEMP 35.6; O2SAT 96
[2024-02-09] MEDS: Zolpidem Tartrate 5 MG TABLET PO (20:10)
[2024-02-09] MEDS: Donepezil HCl 5 MG TABLET PO (20:10)
[2024-02-09] MEDS: Atorvastatin Calcium 10 MG TABLET PO (20:10)
[2024-02-09] MEDS: metFORMIN HCl ER 750 MG TAB.ER.24H PO (20:11)
[2024-02-10] MEDS: Levothyroxine Sodium 88 MCG TABLET PO (05:41)
[2024-02-10 05:49] LABS: Glucose, Whole Blood 117 mg/dL (60-115)
--- NOTE | 2024-02-10 06:48 | P.PNPSI_ITS ---
Subjective Subjective Date of Service: 02/10/24 Reason For Visit: psychosis Subjective Notes: Conditional Voluntary Interim History: The nursing staff reported no changes in her mental status compliant with treatment. On interview the patient denies new symptoms, waiting for placement. Mental Status Exam Mental Status Exam Patient Appearance: Appropriate Patient Orientation: Person and Situation Level of Consciousness: Awake and Appropriate Patient Behavior: Appropriate, Cooperative and Passive Mood Description: Calm Affect Description: Constricted Patient Cognition Impaired: Yes Ability to Follow Directions: Good Speech Pattern: Clear Hallucinations: None Delusions: Not Present Thought Process: Distracted and Slowed Thinking Thought Content: positive for [place] and positive for Poverty of Content Judgement: Poor Diagnostics Vital Signs (24Hr): Vital Signs - 24 hr 02/09/24 08:00 02/09/24 20:00 Temperature 97.5 F 96.1 F L Pulse Rate 69 72 Respiratory Rate 17 18 Blood Pressure 152/68 H 114/56 L Pulse Oximetry 98 96 Oxygen Delivery Method Room Air Room Air BMI result Body Mass Index 30.0 Labs 01/06/24 07:28 02/10/24 07:12 Labs: Laboratory Results - last 48 hr 02/08/24 02/09/24 02/09/24 20:06 06:40 19:44 POC Glucose 181 H 114 176 H 02/10/24 05:44 POC Glucose 117 H Medications Medications Current Medications Acetaminophen (Acetaminophen 325 Mg Tablet) 650 mg PO Q6H PRN PRN Reason: Headache/Pain Mild Scale (1-3) Last Admin: 02/09/24 20:10 Dose: 650 mg Al Hydroxide/Mg Hydroxide (Magnesium Hydrox/Alum Hydrox 30 Ml Oral.Susp) 30 ml PO Q6H PRN PRN Reason: Heartburn/Nausea Allopurinol (Allopurinol 100 Mg Tablet) 100 mg PO DAILY [facility] Last Admin: 02/09/24 08:24 Dose: 100 mg Amlodipine Besylate (Amlodipine Besylate 2.5 Mg Tablet) 2.5 mg PO DAILY [facility]; Protocol Last Admin: 02/09/24 08:24 Dose: 2.5 mg Artificial Tears (Artificial Tears 15 Ml Drops) 2 drop EYE-BOTH Q4H PRN PRN Reason: Dry Eyes Last Admin: 01/10/24 09:25 Dose: 2 drop Atorvastatin Calcium (Atorvastatin Calcium 10 Mg Tablet) 10 mg PO BEDTIME [facility] Last Admin: 02/09/24 20:10 Dose: 10 mg Cyclobenzaprine HCl (Cyclobenzaprine Hcl 5 Mg Tablet) 5 mg PO TID PRN PRN Reason: back spasm Last Admin: 02/06/24 20:58 Dose: 5 mg Diphenoxylate HCl/Atropine (Diphenoxylate/Atrop 2.5/0.025 Tablet) 1 tab PO DAILY PRN PRN Reason: loose stools Last Admin: 02/09/24 10:32 Dose: 1 tab Donepezil HCl (Donepezil Hcl 5 Mg Tablet) 5 mg PO BEDTIME [facility] Last Admin: 02/09/24 20:10 Dose: 5 mg Escitalopram Oxalate (Escitalopram Oxalate 10 Mg Tablet) 10 mg PO DAILY [facility] Last Admin: 02/09/24 08:24 Dose: 10 mg Levothyroxine Sodium (Levothyroxine Sodium 88 Mcg Tablet) 88 mcg PO DAILY@0600 [facility] Last Admin: 02/10/24 05:41 Dose: 88 mcg Loperamide HCl (Loperamide Hcl 2 Mg Capsule) 2 mg PO Q4H PRN PRN Reason: Loose Stool Lorazepam (Lorazepam 0.5 Mg Tablet) 0.5 mg PO DAILY PRN PRN Reason: Anxiety Last Admin: 01/29/24 09:27 Dose: 0.5 mg Magnesium Hydroxide (Milk Of Magnesia 30 Ml Oral.Susp) 30 ml PO DAILY PRN PRN Reason: Constipation Memantine (Memantine Hcl 5 Mg Tablet) 5 mg PO DAILY [facility] Last Admin: 02/09/24 08:24 Dose: 5 mg Metformin HCl (Metformin Hcl Er 750 Mg Tab.Er.24h) 750 mg PO BEDTIME [facility] Last Admin: 02/09/24 20:11 Dose: 750 mg Pt Own (Cyclosporine ([Restasis] 1 Drop)) 1 drop EYE-BOTH BID [facility] Last Admin: 02/09/24 20:10 Dose: 1 drop Olanzapine (Olanzapine 2.5 Mg Tablet) 2.5 mg PO Q4H PRN PRN Reason: agitation/acute psychosis Simethicone (Simethicone 80 Mg Tab.Chew) 80 mg PO QIDWMHS PRN PRN Reason: bloating Last Admin: 02/09/24 20:11 Dose: 80 mg Sitagliptin Phosphate (Sitagliptin Phosphate 100 Mg Tablet) 100 mg PO DAILY [facility] Last Admin: 02/09/24 08:24 Dose: 100 mg Trazodone HCl (Trazodone Hcl 50 Mg Tablet) 50 mg PO BEDTIME MRX1 PRN PRN Reason: Insomnia Last Admin: 02/05/24 21:08 Dose: 50 mg Vitamin D (Cholecalciferol (Vitamin D3) 25 Mcg Tablet) 25 mcg PO DAILY [facility] Last Admin: 02/09/24 08:24 Dose: 25 mcg Zolpidem Tartrate (Zolpidem Tartrate 5 Mg Tablet) 5 mg PO BEDTIME [facility] Last Admin: 02/09/24 20:10 Dose: 5 mg Allergies Allergies Allergy/AdvReac Type Severity Reaction Status Date / Time codeine Allergy Unknown Verified 12/07/23 20:27 Assessment & Plan Assessment & Plan (1) Dementia with psychotic disturbance: Status: Acute Code(s): F03.92 - Unspecified dementia, unspecified severity, with psychotic disturbance Plan Mrs. Jin is a 83 year-old woman with hx of vascular dementia with delusions of having an affair and some paranoid delusions. Some insight that this may not be the case but pt very much believes and takes action based on delusion despite here reporting that it may not be happening. It is unclear report from [facility] as to suicidal ideation. no indication of imminent harm to self or others, but collateral information is pending from family. May consider antipsychotic. PLAN 1. Restart Namenda. 2. Rexulti was started and increase it to 0.5 p.o. b.i.d. at this point. We are discontinued it on December 18 since the patient has refused to take it and there is no evidence of assaultive behavior. 3. Information of healthcare proxy. 4. Reassessment with results. 5. Waiting for placement 6. Waiting for [facility] application clearance. Reason for continued inpatient stay Substantial Risk for: inability to function, rapid decompensation and med/psych decompensation Time Spent With Patient Time: Total time managing care of this patient today _20___ minutes.
[2024-02-10 07:52] LABS: Creatinine Clr Calc Pharmacy 35.1; Estimated Glomerular Filt Rate 40
[2024-02-10 08:00] VITALS: BP 134/62; PULSE 73; RESP 16; TEMP 36.2; O2SAT 98
[2024-02-10] MEDS: Escitalopram Oxalate 10 MG TABLET PO (09:14)
[2024-02-10] MEDS: SITagliptin Phosphate 100 MG TABLET PO (09:14)
[2024-02-10] MEDS: allopurinoL 100 MG TABLET PO (09:14)
[2024-02-10] MEDS: Cholecalciferol (Vitamin D3) 25 MCG TABLET PO (09:14)
[2024-02-10] MEDS: amLODIPine Besylate 2.5 MG TABLET PO (09:14)
[2024-02-10] MEDS: Memantine HCl 5 MG TABLET PO (09:15)
[2024-02-10] MEDS: Acetaminophen 325 MG TABLET 650 MG PO ×2 (09:27→21:02)
[2024-02-10] MEDS: Simethicone 80 MG TAB.CHEW PO ×2 (09:28→21:02)
[2024-02-10] MEDS: CYCLOSPORINE 1 EACH EYE-BOTH ×2 (09:28→21:03)
[2024-02-10 20:00] VITALS: BP 121/60; PULSE 72; RESP 18; TEMP 36; O2SAT 97
[2024-02-10] MEDS: Donepezil HCl 5 MG TABLET PO (21:02)
[2024-02-10] MEDS: Atorvastatin Calcium 10 MG TABLET PO (21:02)
[2024-02-10] MEDS: metFORMIN HCl ER 750 MG TAB.ER.24H PO (21:02)
[2024-02-10] MEDS: Artificial Tears 15 ML DROPS 2 DROP EYE-BOTH (21:03)
[2024-02-10] MEDS: Zolpidem Tartrate 5 MG TABLET PO (21:03)
[2024-02-10 21:43] LABS: Glucose, Whole Blood 137 mg/dL (60-115)
[2024-02-11] MEDS: Levothyroxine Sodium 88 MCG TABLET PO (05:18)
[2024-02-11 05:38] LABS: Glucose, Whole Blood 119 mg/dL (60-115)
--- NOTE | 2024-02-11 06:36 | P.PNPSI_ITS ---
Subjective Subjective Date of Service: 02/11/24 Reason For Visit: psychosis Subjective Notes: Conditional Voluntary Interim History: The nursing staff reported the patient had been compliant with treatment, no changes in her mental status. On interview the patient denies new symptoms, waiting for placement. Mental Status Exam Mental Status Exam Patient Appearance: Appropriate Patient Orientation: Person and Situation Level of Consciousness: Awake Patient Behavior: Appropriate Mood Description: Calm Affect Description: Constricted Patient Cognition Impaired: Yes Ability to Follow Directions: Good Speech Pattern: Clear Hallucinations: None Delusions: Not Present Thought Process: Distracted and Slowed Thinking Thought Content: positive for [place] and positive for Poverty of Content Judgement: Fair Diagnostics Vital Signs (24Hr): Vital Signs - 24 hr 02/10/24 08:00 02/10/24 20:00 Temperature 97.2 F 96.8 F Pulse Rate 73 72 Respiratory Rate 16 18 Blood Pressure 134/62 121/60 Pulse Oximetry 98 97 Oxygen Delivery Method Room Air Room Air BMI result Body Mass Index 30.0 Labs 01/06/24 07:28 02/10/24 07:12 Labs: Laboratory Results - last 48 hr 02/09/24 02/09/24 02/10/24 06:40 19:44 05:44 Creatinine Estim Creat Clear Calc Estimated GFR POC Glucose 114 176 H 117 H 02/10/24 02/10/24 02/11/24 07:12 21:36 05:29 Creatinine 1.26 Estim Creat Clear Calc 35.1 Estimated GFR 40 POC Glucose 137 H 119 H Medications Medications Current Medications Acetaminophen (Acetaminophen 325 Mg Tablet) 650 mg PO Q6H PRN PRN Reason: Headache/Pain Mild Scale (1-3) Last Admin: 02/10/24 21:02 Dose: 650 mg Al Hydroxide/Mg Hydroxide (Magnesium Hydrox/Alum Hydrox 30 Ml Oral.Susp) 30 ml PO Q6H PRN PRN Reason: Heartburn/Nausea Allopurinol (Allopurinol 100 Mg Tablet) 100 mg PO DAILY [facility] Last Admin: 02/10/24 09:14 Dose: 100 mg Amlodipine Besylate (Amlodipine Besylate 2.5 Mg Tablet) 2.5 mg PO DAILY [facility]; Protocol Last Admin: 02/10/24 09:14 Dose: 2.5 mg Artificial Tears (Artificial Tears 15 Ml Drops) 2 drop EYE-BOTH Q4H PRN PRN Reason: Dry Eyes Last Admin: 02/10/24 21:03 Dose: 2 drop Atorvastatin Calcium (Atorvastatin Calcium 10 Mg Tablet) 10 mg PO BEDTIME [facility] Last Admin: 02/10/24 21:02 Dose: 10 mg Cyclobenzaprine HCl (Cyclobenzaprine Hcl 5 Mg Tablet) 5 mg PO TID PRN PRN Reason: back spasm Last Admin: 02/06/24 20:58 Dose: 5 mg Diphenoxylate HCl/Atropine (Diphenoxylate/Atrop 2.5/0.025 Tablet) 1 tab PO DAILY PRN PRN Reason: loose stools Last Admin: 02/09/24 10:32 Dose: 1 tab Donepezil HCl (Donepezil Hcl 5 Mg Tablet) 5 mg PO BEDTIME [facility] Last Admin: 02/10/24 21:02 Dose: 5 mg Escitalopram Oxalate (Escitalopram Oxalate 10 Mg Tablet) 10 mg PO DAILY [facility] Last Admin: 02/10/24 09:14 Dose: 10 mg Levothyroxine Sodium (Levothyroxine Sodium 88 Mcg Tablet) 88 mcg PO DAILY@0600 [facility] Last Admin: 02/11/24 05:18 Dose: 88 mcg Loperamide HCl (Loperamide Hcl 2 Mg Capsule) 2 mg PO Q4H PRN PRN Reason: Loose Stool Lorazepam (Lorazepam 0.5 Mg Tablet) 0.5 mg PO DAILY PRN PRN Reason: Anxiety Last Admin: 01/29/24 09:27 Dose: 0.5 mg Magnesium Hydroxide (Milk Of Magnesia 30 Ml Oral.Susp) 30 ml PO DAILY PRN PRN Reason: Constipation Memantine (Memantine Hcl 5 Mg Tablet) 5 mg PO DAILY [facility] Last Admin: 02/10/24 09:15 Dose: 5 mg Metformin HCl (Metformin Hcl Er 750 Mg Tab.Er.24h) 750 mg PO BEDTIME [facility] Last Admin: 02/10/24 21:02 Dose: 750 mg Pt Own (Cyclosporine ([Restasis] 1 Drop)) 1 drop EYE-BOTH BID [facility] Last Admin: 02/10/24 21:03 Dose: 1 drop Olanzapine (Olanzapine 2.5 Mg Tablet) 2.5 mg PO Q4H PRN PRN Reason: agitation/acute psychosis Simethicone (Simethicone 80 Mg Tab.Chew) 80 mg PO QIDWMHS PRN PRN Reason: bloating Last Admin: 02/10/24 21:02 Dose: 80 mg Sitagliptin Phosphate (Sitagliptin Phosphate 100 Mg Tablet) 100 mg PO DAILY [facility] Last Admin: 02/10/24 09:14 Dose: 100 mg Trazodone HCl (Trazodone Hcl 50 Mg Tablet) 50 mg PO BEDTIME MRX1 PRN PRN Reason: Insomnia Last Admin: 02/05/24 21:08 Dose: 50 mg Vitamin D (Cholecalciferol (Vitamin D3) 25 Mcg Tablet) 25 mcg PO DAILY [facility] Last Admin: 02/10/24 09:14 Dose: 25 mcg Zolpidem Tartrate (Zolpidem Tartrate 5 Mg Tablet) 5 mg PO BEDTIME [facility] Last Admin: 02/10/24 21:03 Dose: 5 mg Allergies Allergies Allergy/AdvReac Type Severity Reaction Status Date / Time codeine Allergy Unknown Verified 12/07/23 20:27 Assessment & Plan Assessment & Plan (1) Dementia with psychotic disturbance: Status: Acute Code(s): F03.92 - Unspecified dementia, unspecified severity, with psychotic disturbance Plan Mrs. Jin is a 83 year-old woman with hx of vascular dementia with delusions of having an affair and some paranoid delusions. Some insight that this may not be the case but pt very much believes and takes action based on delusion despite here reporting that it may not be happening. It is unclear report from [facility] as to suicidal ideation. no indication of imminent harm to self or others, but collateral information is pending from family. May consider antipsychotic. PLAN 1. Restart Namenda. 2. Rexulti was started and increase it to 0.5 p.o. b.i.d. at this point. We are discontinued it on December 18 since the patient has refused to take it and there is no evidence of assaultive behavior. 3. Information of healthcare proxy. 4. Reassessment with results. 5. Waiting for placement 6. Waiting for [facility] application clearance. Reason for continued inpatient stay Substantial Risk for: inability to function, rapid decompensation and med/psych decompensation Time Spent With Patient Time: Total time managing care of this patient today __20__ minutes.
[2024-02-11 08:05] VITALS: BP 143/68; PULSE 77; RESP 18; TEMP 36.8; O2SAT 95
[2024-02-11] MEDS: Acetaminophen 325 MG TABLET 650 MG PO ×2 (08:44→20:10)
[2024-02-11] MEDS: SITagliptin Phosphate 100 MG TABLET PO (08:44)
[2024-02-11] MEDS: Cholecalciferol (Vitamin D3) 25 MCG TABLET PO (08:44)
[2024-02-11] MEDS: Simethicone 80 MG TAB.CHEW PO ×2 (08:44→20:10)
[2024-02-11] MEDS: amLODIPine Besylate 2.5 MG TABLET PO (08:44)
[2024-02-11] MEDS: Escitalopram Oxalate 10 MG TABLET PO (08:44)
[2024-02-11] MEDS: CYCLOSPORINE 1 EACH EYE-BOTH ×2 (08:44→20:11)
[2024-02-11] MEDS: Memantine HCl 5 MG TABLET PO (08:44)
[2024-02-11] MEDS: allopurinoL 100 MG TABLET PO (08:44)
[2024-02-11 19:34] LABS: Glucose, Whole Blood 154 mg/dL (60-115)
[2024-02-11 20:00] VITALS: BP 123/60; PULSE 71; RESP 18; TEMP 36.4; O2SAT 95
[2024-02-11] MEDS: Atorvastatin Calcium 10 MG TABLET PO (20:10)
[2024-02-11] MEDS: Zolpidem Tartrate 5 MG TABLET PO (20:10)
[2024-02-11] MEDS: metFORMIN HCl ER 750 MG TAB.ER.24H PO (20:10)
[2024-02-11] MEDS: Donepezil HCl 5 MG TABLET PO (20:10)
[2024-02-11] MEDS: Cyclobenzaprine HCl 5 MG TABLET PO (20:19)
[2024-02-12] MEDS: Levothyroxine Sodium 88 MCG TABLET PO (06:29)
[2024-02-12 06:48] LABS: Glucose, Whole Blood 109 mg/dL (60-115)
[2024-02-12 08:00] VITALS: BP 136/63; PULSE 69; RESP 18; TEMP 36.1; O2SAT 98
[2024-02-12] MEDS: Acetaminophen 325 MG TABLET 650 MG PO ×2 (08:36→19:36)
[2024-02-12] MEDS: Memantine HCl 5 MG TABLET PO (08:37)
[2024-02-12] MEDS: Simethicone 80 MG TAB.CHEW PO ×2 (08:37→19:37)
[2024-02-12] MEDS: Cholecalciferol (Vitamin D3) 25 MCG TABLET PO (08:38)
[2024-02-12] MEDS: SITagliptin Phosphate 100 MG TABLET PO (08:38)
[2024-02-12] MEDS: amLODIPine Besylate 2.5 MG TABLET PO (08:38)
[2024-02-12] MEDS: allopurinoL 100 MG TABLET PO (08:38)
[2024-02-12] MEDS: Escitalopram Oxalate 10 MG TABLET PO (08:39)
[2024-02-12] MEDS: CYCLOSPORINE 1 EACH EYE-BOTH ×2 (08:39→19:36)
--- NOTE | 2024-02-12 12:19 | HO.PSYCHPN ---
Subjective Subjective Date of Service: 02/12/24 Reason For Visit: psychosis Subjective Notes: Conditional Voluntary Interim History: The nursing staff reported no changes in her mental status compliant with treatment. On interview the patient denies new symptoms, waiting for placement. Mental Status Exam Mental Status Exam Patient Appearance: Appropriate Patient Orientation: Person and Situation Level of Consciousness: Awake and Appropriate Patient Behavior: Guarded and Passive Mood Description: Withdrawn Affect Description: Constricted Patient Cognition Impaired: Yes Ability to Follow Directions: Good Speech Pattern: Clear Hallucinations: None Delusions: Not Present Thought Process: Distracted and Slowed Thinking Thought Content: positive for [place] and positive for Poverty of Content Judgement: Fair Diagnostics Vital Signs (24Hr): Vital Signs - 24 hr 02/11/24 20:00 02/12/24 08:00 Temperature 97.5 F 97.0 F Pulse Rate 71 69 Respiratory Rate 18 18 Blood Pressure 123/60 136/63 Pulse Oximetry 95 98 Oxygen Delivery Method Room Air Room Air BMI result Body Mass Index 30.0 Labs 01/06/24 07:28 02/10/24 07:12 Labs: Laboratory Results - last 48 hr 02/10/24 02/11/24 02/11/24 21:36 05:29 19:30 POC Glucose 137 H 119 H 154 H 02/12/24 06:31 POC Glucose 109 Medications Medications Current Medications Acetaminophen (Acetaminophen 325 Mg Tablet) 650 mg PO Q6H PRN PRN Reason: Headache/Pain Mild Scale (1-3) Last Admin: 02/12/24 08:36 Dose: 650 mg Al Hydroxide/Mg Hydroxide (Magnesium Hydrox/Alum Hydrox 30 Ml Oral.Susp) 30 ml PO Q6H PRN PRN Reason: Heartburn/Nausea Allopurinol (Allopurinol 100 Mg Tablet) 100 mg PO DAILY [facility] Last Admin: 02/12/24 08:38 Dose: 100 mg Amlodipine Besylate (Amlodipine Besylate 2.5 Mg Tablet) 2.5 mg PO DAILY [facility]; Protocol Last Admin: 02/12/24 08:38 Dose: 2.5 mg Artificial Tears (Artificial Tears 15 Ml Drops) 2 drop EYE-BOTH Q4H PRN PRN Reason: Dry Eyes Last Admin: 02/10/24 21:03 Dose: 2 drop Atorvastatin Calcium (Atorvastatin Calcium 10 Mg Tablet) 10 mg PO BEDTIME [facility] Last Admin: 02/11/24 20:10 Dose: 10 mg Cyclobenzaprine HCl (Cyclobenzaprine Hcl 5 Mg Tablet) 5 mg PO TID PRN PRN Reason: back spasm Last Admin: 02/11/24 20:19 Dose: 5 mg Diphenoxylate HCl/Atropine (Diphenoxylate/Atrop 2.5/0.025 Tablet) 1 tab PO DAILY PRN PRN Reason: loose stools Last Admin: 02/09/24 10:32 Dose: 1 tab Donepezil HCl (Donepezil Hcl 5 Mg Tablet) 5 mg PO BEDTIME [facility] Last Admin: 02/11/24 20:10 Dose: 5 mg Escitalopram Oxalate (Escitalopram Oxalate 10 Mg Tablet) 10 mg PO DAILY [facility] Last Admin: 02/12/24 08:39 Dose: 10 mg Levothyroxine Sodium (Levothyroxine Sodium 88 Mcg Tablet) 88 mcg PO DAILY@0600 [facility] Last Admin: 02/12/24 06:29 Dose: 88 mcg Loperamide HCl (Loperamide Hcl 2 Mg Capsule) 2 mg PO Q4H PRN PRN Reason: Loose Stool Lorazepam (Lorazepam 0.5 Mg Tablet) 0.5 mg PO DAILY PRN PRN Reason: Anxiety Last Admin: 01/29/24 09:27 Dose: 0.5 mg Magnesium Hydroxide (Milk Of Magnesia 30 Ml Oral.Susp) 30 ml PO DAILY PRN PRN Reason: Constipation Memantine (Memantine Hcl 5 Mg Tablet) 5 mg PO DAILY [facility] Last Admin: 02/12/24 08:37 Dose: 5 mg Metformin HCl (Metformin Hcl Er 750 Mg Tab.Er.24h) 750 mg PO BEDTIME [facility] Last Admin: 02/11/24 20:10 Dose: 750 mg Pt Own (Cyclosporine ([Restasis] 1 Drop)) 1 drop EYE-BOTH BID [facility] Last Admin: 02/12/24 08:39 Dose: 1 drop Olanzapine (Olanzapine 2.5 Mg Tablet) 2.5 mg PO Q4H PRN PRN Reason: agitation/acute psychosis Simethicone (Simethicone 80 Mg Tab.Chew) 80 mg PO QIDWMHS PRN PRN Reason: bloating Last Admin: 02/12/24 08:37 Dose: 80 mg Sitagliptin Phosphate (Sitagliptin Phosphate 100 Mg Tablet) 100 mg PO DAILY [facility] Last Admin: 02/12/24 08:38 Dose: 100 mg Trazodone HCl (Trazodone Hcl 50 Mg Tablet) 50 mg PO BEDTIME MRX1 PRN PRN Reason: Insomnia Last Admin: 02/05/24 21:08 Dose: 50 mg Vitamin D (Cholecalciferol (Vitamin D3) 25 Mcg Tablet) 25 mcg PO DAILY [facility] Last Admin: 02/12/24 08:38 Dose: 25 mcg Zolpidem Tartrate (Zolpidem Tartrate 5 Mg Tablet) 5 mg PO BEDTIME [facility] Last Admin: 02/11/24 20:10 Dose: 5 mg Allergies Allergies Allergy/AdvReac Type Severity Reaction Status Date / Time codeine Allergy Unknown Verified 12/07/23 20:27 Assessment & Plan Assessment & Plan (1) Dementia with psychotic disturbance: Status: Acute Code(s): F03.92 - Unspecified dementia, unspecified severity, with psychotic disturbance Plan Mrs. Jin is a 83 year-old woman with hx of vascular dementia with delusions of having an affair and some paranoid delusions. Some insight that this may not be the case but pt very much believes and takes action based on delusion despite here reporting that it may not be happening. It is unclear report from [facility] as to suicidal ideation. no indication of imminent harm to self or others, but collateral information is pending from family. May consider antipsychotic. PLAN 1. Restart Namenda. 2. Rexulti was started and increase it to 0.5 p.o. b.i.d. at this point. We are discontinued it on December 18 since the patient has refused to take it and there is no evidence of assaultive behavior. 3. Information of healthcare proxy. 4. Reassessment with results. 5. Waiting for placement 6. Waiting for [facility] application clearance. Reason for continued inpatient stay Substantial Risk for: inability to function, rapid decompensation and med/psych decompensation Time Spent With Patient Time: Total time managing care of this patient today __20__ minutes.
[2024-02-12] MEDS: Donepezil HCl 5 MG TABLET PO (19:36)
[2024-02-12] MEDS: Atorvastatin Calcium 10 MG TABLET PO (19:37)
[2024-02-12] MEDS: Zolpidem Tartrate 5 MG TABLET PO (19:37)
[2024-02-12] MEDS: metFORMIN HCl ER 750 MG TAB.ER.24H PO (19:37)
[2024-02-12 19:40] VITALS: BP 131/87; PULSE 67; RESP 18; TEMP 36.7; O2SAT 97
[2024-02-12 20:25] LABS: Glucose, Whole Blood 183 mg/dL (60-115)
[2024-02-13] MEDS: Levothyroxine Sodium 88 MCG TABLET PO (05:54)
[2024-02-13 06:31] LABS: Glucose, Whole Blood 108 mg/dL (60-115)
[2024-02-13 08:00] VITALS: PULSE 72; RESP 20; TEMP 36.6; O2SAT 100
--- NOTE | 2024-02-13 08:48 | HO.PSYCHPN ---
Subjective Subjective Date of Service: 02/13/24 Reason For Visit: psychosis Subjective Notes: Conditional Voluntary Interim History: Pt slept through the night. She denies any physical concerns or emotional concerns. She is taking medications as prescribed. She is awaiting placement. She is not very interactive with peers, nor social. She does not attend groups. Keeps to herself. No behavioral concerns. Review of Systems Review of Systems Constitutional : No Weight loss, No Fever, No Chills, No Night Sweats, No Fatigue, No Malaise ENT/Mouth : No Hearing loss, No Ear Pain, No Nasal Congestion, No Sinus Pain, No Hoarseness, No sore throat, No Rhinorrhea, No Swallowing Difficulty Eyes: No Eye Pain, No Swelling, No Redness, No Foreign Body, No Discharge, No Vision Changes Cardiovascular : No Chest Pain, No SOB, No Dyspnea on Exertion, No Orthopnea, No Edema, No Palpitations Respiratory : No Cough, No Sputum, No Wheezing, No Smoke Exposure, No Dyspnea Gastrointestinal : No Nausea, No Vomiting, No Diarrhea, No Constipation, No abdominal Pain, No Hematochezia, No Melena Genitourinary : no irregular bleeding, No Dysuria, No Urinary Frequency, No Hematuria, No Urinary Incontinence, No Urgency, No Flank Pain, No Urinary Flow Changes, No Hesitancy Musculoskeletal : No joint pain, No Myalgias, No Joint Swelling Skin : No Skin Lesions, No rash Neuro : No Weakness, No Numbness, No Paresthesias, No Loss of Consciousness, No Dizziness, No Headache Psych : No Anxiety/Panic, No Depression, No SI/HI/AH/VH, No Social Issues, Heme/Lymph: No Bruising, No Bleeding,No Lymphadenopathy Endocrine : No Polyuria, No Polydipsia, No Temperature Intolerance Yes all other systems are reviewed and are negative Constitutional: Reports fatigue, Reports malaise and Reports weakness Reports vertigo and Reports dizziness Cardiovascular: Reports lightheadedness Reports vertigo, Reports dizziness and Reports weakness Endocrine: Reports fatigue Mental Status Exam Mental Status Exam Narrative: Appearance: wearing casual clothing, siting in chair, no NAD Behavior: cooperative Psychomotor: no retardation or agitation noted Speech: clear, normal rate/rhythm/volume, spontaneous TP: mostly linear TC: feeling okay Mood: fine Affect: congruent, SI: denies HI: denies VH/AH: none Delusions: not reported Insight/judgment: poor x 2. memory/cog: alert, oriented x 3. ACL 3.4 Diagnostics Vital Signs (24Hr): Vital Signs - 24 hr 02/12/24 19:40 Temperature 98.1 F Pulse Rate 67 Respiratory Rate 18 Blood Pressure 131/87 Pulse Oximetry 97 Oxygen Delivery Method Room Air BMI result Body Mass Index 30.0 Labs 01/06/24 07:28 02/10/24 07:12 Labs: Laboratory Results - last 48 hr 02/11/24 02/12/24 02/12/24 19:30 06:31 19:34 POC Glucose 154 H 109 183 H 02/13/24 05:57 POC Glucose 108 Medications Medications Current Medications Acetaminophen (Acetaminophen 325 Mg Tablet) 650 mg PO Q6H PRN PRN Reason: Headache/Pain Mild Scale (1-3) Last Admin: 02/12/24 19:36 Dose: 650 mg Al Hydroxide/Mg Hydroxide (Magnesium Hydrox/Alum Hydrox 30 Ml Oral.Susp) 30 ml PO Q6H PRN PRN Reason: Heartburn/Nausea Allopurinol (Allopurinol 100 Mg Tablet) 100 mg PO DAILY [facility] Last Admin: 02/12/24 08:38 Dose: 100 mg Amlodipine Besylate (Amlodipine Besylate 2.5 Mg Tablet) 2.5 mg PO DAILY [facility]; Protocol Last Admin: 02/12/24 08:38 Dose: 2.5 mg Artificial Tears (Artificial Tears 15 Ml Drops) 2 drop EYE-BOTH Q4H PRN PRN Reason: Dry Eyes Last Admin: 02/10/24 21:03 Dose: 2 drop Atorvastatin Calcium (Atorvastatin Calcium 10 Mg Tablet) 10 mg PO BEDTIME [facility] Last Admin: 02/12/24 19:37 Dose: 10 mg Cyclobenzaprine HCl (Cyclobenzaprine Hcl 5 Mg Tablet) 5 mg PO TID PRN PRN Reason: back spasm Last Admin: 02/11/24 20:19 Dose: 5 mg Diphenoxylate HCl/Atropine (Diphenoxylate/Atrop 2.5/0.025 Tablet) 1 tab PO DAILY PRN PRN Reason: loose stools Last Admin: 02/09/24 10:32 Dose: 1 tab Donepezil HCl (Donepezil Hcl 5 Mg Tablet) 5 mg PO BEDTIME [facility] Last Admin: 02/12/24 19:36 Dose: 5 mg Escitalopram Oxalate (Escitalopram Oxalate 10 Mg Tablet) 10 mg PO DAILY [facility] Last Admin: 02/12/24 08:39 Dose: 10 mg Levothyroxine Sodium (Levothyroxine Sodium 88 Mcg Tablet) 88 mcg PO DAILY@0600 [facility] Last Admin: 02/13/24 05:54 Dose: 88 mcg Loperamide HCl (Loperamide Hcl 2 Mg Capsule) 2 mg PO Q4H PRN PRN Reason: Loose Stool Lorazepam (Lorazepam 0.5 Mg Tablet) 0.5 mg PO DAILY PRN PRN Reason: Anxiety Last Admin: 01/29/24 09:27 Dose: 0.5 mg Magnesium Hydroxide (Milk Of Magnesia 30 Ml Oral.Susp) 30 ml PO DAILY PRN PRN Reason: Constipation Memantine (Memantine Hcl 5 Mg Tablet) 5 mg PO DAILY [facility] Last Admin: 02/12/24 08:37 Dose: 5 mg Metformin HCl (Metformin Hcl Er 750 Mg Tab.Er.24h) 750 mg PO BEDTIME [facility] Last Admin: 02/12/24 19:37 Dose: 750 mg Pt Own (Cyclosporine ([Restasis] 1 Drop)) 1 drop EYE-BOTH BID [facility] Last Admin: 02/12/24 19:36 Dose: 1 drop Olanzapine (Olanzapine 2.5 Mg Tablet) 2.5 mg PO Q4H PRN PRN Reason: agitation/acute psychosis Simethicone (Simethicone 80 Mg Tab.Chew) 80 mg PO QIDWMHS PRN PRN Reason: bloating Last Admin: 02/12/24 19:37 Dose: 80 mg Sitagliptin Phosphate (Sitagliptin Phosphate 100 Mg Tablet) 100 mg PO DAILY [facility] Last Admin: 02/12/24 08:38 Dose: 100 mg Trazodone HCl (Trazodone Hcl 50 Mg Tablet) 50 mg PO BEDTIME MRX1 PRN PRN Reason: Insomnia Last Admin: 02/05/24 21:08 Dose: 50 mg Vitamin D (Cholecalciferol (Vitamin D3) 25 Mcg Tablet) 25 mcg PO DAILY [facility] Last Admin: 02/12/24 08:38 Dose: 25 mcg Zolpidem Tartrate (Zolpidem Tartrate 5 Mg Tablet) 5 mg PO BEDTIME [facility] Last Admin: 02/12/24 19:37 Dose: 5 mg Allergies Allergies Allergy/AdvReac Type Severity Reaction Status Date / Time codeine Allergy Unknown Verified 12/07/23 20:27 Assessment & Plan Assessment & Plan (1) Dementia with psychotic disturbance: Status: Acute Code(s): F03.92 - Unspecified dementia, unspecified severity, with psychotic disturbance Plan Mrs. Jin is a 83 year-old woman with hx of vascular dementia with delusions of having an affair and some paranoid delusions. Some insight that this may not be the case but pt very much believes and takes action based on delusion despite here reporting that it may not be happening. It is unclear report from [facility] as to suicidal ideation. no indication of imminent harm to self or others, but collateral information is pending from family. May consider antipsychotic. PLAN 02/12 continue tx. Reason for continued inpatient stay Substantial Risk for: inability to function Time Spent With Patient Time: Total time managing care of this patient today ____ minutes.
[2024-02-13] MEDS: allopurinoL 100 MG TABLET PO (08:49)
[2024-02-13] MEDS: Memantine HCl 5 MG TABLET PO (08:49)
[2024-02-13] MEDS: Cholecalciferol (Vitamin D3) 25 MCG TABLET PO (08:49)
[2024-02-13 08:50] VITALS: BP 150/67
[2024-02-13] MEDS: amLODIPine Besylate 2.5 MG TABLET PO (08:50)
[2024-02-13] MEDS: Acetaminophen 325 MG TABLET 650 MG PO ×2 (08:51→20:05)
[2024-02-13] MEDS: Escitalopram Oxalate 10 MG TABLET PO (08:51)
[2024-02-13] MEDS: SITagliptin Phosphate 100 MG TABLET PO (08:51)
[2024-02-13] MEDS: CYCLOSPORINE 1 EACH EYE-BOTH ×2 (08:51→20:05)
[2024-02-13] MEDS: Simethicone 80 MG TAB.CHEW PO ×2 (08:52→20:06)
--- NOTE | 2024-02-13 16:54 | HO.WOUND ---
Wound Consult: Initial 83yr old?female admitted to [facility] on 12/08/23 - See progress notes and H&P for detailed history.? Wound consult placed for buttock and bilateral heel redness.? Patient agreeable to assessment. Bilateral Heels assessed for redness - remain intact and blanchable - off loaded with pillows and recommend application of preventative foam dressings to be applied. Buttock assessed - noted for MASD - Mirrored blanchable intact redness - pt reports feeling of irritation and mild itching. barrier cream applied and encouraged brief to be removed when in bed and only used when up. ? Recommendations: 1. Turn and Reposition every 2 hours and as needed for patient comfort.? Use pillows or wedges to support off loading positions. 2. Off Load all bony prominences with use of pillows and heel boots if needed.? Apply Preventative foams where needed. ? 3. Monitor for incontinence and moisture control, use barrier creams when needed for prevention and treatment. Discontinue brief use when in bed. 4. Provide adequate and supplemental nutrition.? 5. Bilateral Heels - Apply preventative foams to heels change every 5-7 days and PRN. Elevate heels from surface of bed with pillows. 6. Buttock - Cleanse with PH Tony spray. Apply barrier cream to buttock and intergluteal area twice daily and after each episode of incontinence. Discontinue brief use while in bed. Re-consult wound care Nurse for wound deterioration or wound changes.
[2024-02-13 20:00] VITALS: BP 118/58; PULSE 76; RESP 17; TEMP 36.3; O2SAT 96
[2024-02-13] MEDS: metFORMIN HCl ER 750 MG TAB.ER.24H PO (20:05)
[2024-02-13] MEDS: Zolpidem Tartrate 5 MG TABLET PO (20:05)
[2024-02-13] MEDS: Atorvastatin Calcium 10 MG TABLET PO (20:06)
[2024-02-13] MEDS: Donepezil HCl 5 MG TABLET PO (20:06)
[2024-02-13 20:51] LABS: Glucose, Whole Blood 155 mg/dL (60-115)
[2024-02-14] MEDS: Levothyroxine Sodium 88 MCG TABLET PO (05:36)
[2024-02-14 06:38] LABS: Glucose, Whole Blood 111 mg/dL (60-115)
[2024-02-14 08:47] VITALS: BP 168/74; PULSE 69; RESP 17; TEMP 36; O2SAT 97
[2024-02-14] MEDS: Memantine HCl 5 MG TABLET PO (08:49)
[2024-02-14] MEDS: SITagliptin Phosphate 100 MG TABLET PO (08:49)
[2024-02-14] MEDS: Cholecalciferol (Vitamin D3) 25 MCG TABLET PO (08:49)
[2024-02-14] MEDS: CYCLOSPORINE 1 EACH EYE-BOTH ×2 (08:49→20:46)
[2024-02-14] MEDS: Escitalopram Oxalate 10 MG TABLET PO (08:49)
[2024-02-14] MEDS: amLODIPine Besylate 2.5 MG TABLET PO (08:49)
[2024-02-14] MEDS: allopurinoL 100 MG TABLET PO (08:49)
--- NOTE | 2024-02-14 11:41 | HO.PSYCHPN ---
Subjective Subjective Date of Service: 02/14/24 Reason For Visit: psychosis Interim History: Pt slept through the night. She denies any physical concerns or emotional concerns. She is taking medications as prescribed. She is awaiting placement. She is not very interactive with peers, nor social. She does not attend groups. Keeps to herself. No behavioral concerns. Review of Systems Review of Systems Constitutional : No Weight loss, No Fever, No Chills, No Night Sweats, No Fatigue, No Malaise ENT/Mouth : No Hearing loss, No Ear Pain, No Nasal Congestion, No Sinus Pain, No Hoarseness, No sore throat, No Rhinorrhea, No Swallowing Difficulty Eyes: No Eye Pain, No Swelling, No Redness, No Foreign Body, No Discharge, No Vision Changes Cardiovascular : No Chest Pain, No SOB, No Dyspnea on Exertion, No Orthopnea, No Edema, No Palpitations Respiratory : No Cough, No Sputum, No Wheezing, No Smoke Exposure, No Dyspnea Gastrointestinal : No Nausea, No Vomiting, No Diarrhea, No Constipation, No abdominal Pain, No Hematochezia, No Melena Genitourinary : no irregular bleeding, No Dysuria, No Urinary Frequency, No Hematuria, No Urinary Incontinence, No Urgency, No Flank Pain, No Urinary Flow Changes, No Hesitancy Musculoskeletal : No joint pain, No Myalgias, No Joint Swelling Skin : No Skin Lesions, No rash Neuro : No Weakness, No Numbness, No Paresthesias, No Loss of Consciousness, No Dizziness, No Headache Psych : No Anxiety/Panic, No Depression, No SI/HI/AH/VH, No Social Issues, Heme/Lymph: No Bruising, No Bleeding,No Lymphadenopathy Endocrine : No Polyuria, No Polydipsia, No Temperature Intolerance Yes all other systems are reviewed and are negative Constitutional: Reports fatigue, Reports malaise and Reports weakness Reports vertigo and Reports dizziness Cardiovascular: Reports lightheadedness Reports vertigo, Reports dizziness and Reports weakness Endocrine: Reports fatigue Mental Status Exam Mental Status Exam Narrative: Appearance: wearing casual clothing, siting in chair, no NAD Behavior: cooperative Psychomotor: no retardation or agitation noted Speech: clear, normal rate/rhythm/volume, spontaneous TP: mostly linear TC: feeling okay Mood: fine Affect: congruent, SI: denies HI: denies VH/AH: none Delusions: not reported Insight/judgment: poor x 2. memory/cog: alert, oriented x 3. ACL 3.4 Diagnostics Vital Signs (24Hr): Vital Signs - 24 hr 02/13/24 20:00 02/14/24 08:47 Temperature 97.3 F 96.8 F Pulse Rate 76 69 Respiratory Rate 17 17 Blood Pressure 118/58 L 168/74 H Pulse Oximetry 96 97 Oxygen Delivery Method Room Air Room Air BMI result Body Mass Index 30.0 Labs 01/06/24 07:28 02/10/24 07:12 Labs: Laboratory Results - last 48 hr 02/12/24 02/13/24 02/13/24 19:34 05:57 20:10 POC Glucose 183 H 108 155 H 02/14/24 05:39 POC Glucose 111 Medications Medications Current Medications Acetaminophen (Acetaminophen 325 Mg Tablet) 650 mg PO Q6H PRN PRN Reason: Headache/Pain Mild Scale (1-3) Last Admin: 02/13/24 20:05 Dose: 650 mg Al Hydroxide/Mg Hydroxide (Magnesium Hydrox/Alum Hydrox 30 Ml Oral.Susp) 30 ml PO Q6H PRN PRN Reason: Heartburn/Nausea Allopurinol (Allopurinol 100 Mg Tablet) 100 mg PO DAILY [facility] Last Admin: 02/14/24 08:49 Dose: 100 mg Amlodipine Besylate (Amlodipine Besylate 2.5 Mg Tablet) 2.5 mg PO DAILY [facility]; Protocol Last Admin: 02/14/24 08:49 Dose: 2.5 mg Artificial Tears (Artificial Tears 15 Ml Drops) 2 drop EYE-BOTH Q4H PRN PRN Reason: Dry Eyes Last Admin: 02/10/24 21:03 Dose: 2 drop Atorvastatin Calcium (Atorvastatin Calcium 10 Mg Tablet) 10 mg PO BEDTIME [facility] Last Admin: 02/13/24 20:06 Dose: 10 mg Cyclobenzaprine HCl (Cyclobenzaprine Hcl 5 Mg Tablet) 5 mg PO TID PRN PRN Reason: back spasm Last Admin: 02/11/24 20:19 Dose: 5 mg Diphenoxylate HCl/Atropine (Diphenoxylate/Atrop 2.5/0.025 Tablet) 1 tab PO DAILY PRN PRN Reason: loose stools Last Admin: 02/09/24 10:32 Dose: 1 tab Donepezil HCl (Donepezil Hcl 5 Mg Tablet) 5 mg PO BEDTIME [facility] Last Admin: 02/13/24 20:06 Dose: 5 mg Escitalopram Oxalate (Escitalopram Oxalate 10 Mg Tablet) 10 mg PO DAILY [facility] Last Admin: 02/14/24 08:49 Dose: 10 mg Levothyroxine Sodium (Levothyroxine Sodium 88 Mcg Tablet) 88 mcg PO DAILY@0600 [facility] Last Admin: 02/14/24 05:36 Dose: 88 mcg Loperamide HCl (Loperamide Hcl 2 Mg Capsule) 2 mg PO Q4H PRN PRN Reason: Loose Stool Lorazepam (Lorazepam 0.5 Mg Tablet) 0.5 mg PO DAILY PRN PRN Reason: Anxiety Last Admin: 01/29/24 09:27 Dose: 0.5 mg Magnesium Hydroxide (Milk Of Magnesia 30 Ml Oral.Susp) 30 ml PO DAILY PRN PRN Reason: Constipation Memantine (Memantine Hcl 5 Mg Tablet) 5 mg PO DAILY [facility] Last Admin: 02/14/24 08:49 Dose: 5 mg Metformin HCl (Metformin Hcl Er 750 Mg Tab.Er.24h) 750 mg PO BEDTIME [facility] Last Admin: 02/13/24 20:05 Dose: 750 mg Pt Own (Cyclosporine ([Restasis] 1 Drop)) 1 drop EYE-BOTH BID [facility] Last Admin: 02/14/24 08:49 Dose: 1 drop Olanzapine (Olanzapine 2.5 Mg Tablet) 2.5 mg PO Q4H PRN PRN Reason: agitation/acute psychosis Simethicone (Simethicone 80 Mg Tab.Chew) 80 mg PO QIDWMHS PRN PRN Reason: bloating Last Admin: 02/13/24 20:06 Dose: 80 mg Sitagliptin Phosphate (Sitagliptin Phosphate 100 Mg Tablet) 100 mg PO DAILY [facility] Last Admin: 02/14/24 08:49 Dose: 100 mg Trazodone HCl (Trazodone Hcl 50 Mg Tablet) 50 mg PO BEDTIME MRX1 PRN PRN Reason: Insomnia Last Admin: 02/05/24 21:08 Dose: 50 mg Vitamin D (Cholecalciferol (Vitamin D3) 25 Mcg Tablet) 25 mcg PO DAILY [facility] Last Admin: 02/14/24 08:49 Dose: 25 mcg Zolpidem Tartrate (Zolpidem Tartrate 5 Mg Tablet) 5 mg PO BEDTIME [facility] Last Admin: 02/13/24 20:05 Dose: 5 mg Allergies Allergies Allergy/AdvReac Type Severity Reaction Status Date / Time codeine Allergy Unknown Verified 12/07/23 20:27 Assessment & Plan Assessment & Plan (1) Dementia with psychotic disturbance: Status: Acute Code(s): F03.92 - Unspecified dementia, unspecified severity, with psychotic disturbance Plan Mrs. Jin is a 83 year-old woman with hx of vascular dementia with delusions of having an affair and some paranoid delusions. Some insight that this may not be the case but pt very much believes and takes action based on delusion despite here reporting that it may not be happening. It is unclear report from [facility] as to suicidal ideation. no indication of imminent harm to self or others, but collateral information is pending from family. May consider antipsychotic. PLAN 02/12 continue tx. 02/13 continue tx. Reason for continued inpatient stay Substantial Risk for: inability to function Time Spent With Patient Time: Total time managing care of this patient today ____ minutes.
[2024-02-14] MEDS: Acetaminophen 325 MG TABLET 650 MG PO ×2 (11:50→20:46)
[2024-02-14 20:00] VITALS: BP 151/67; PULSE 65; RESP 16; TEMP 36.3; O2SAT 98
[2024-02-14] MEDS: metFORMIN HCl ER 750 MG TAB.ER.24H PO (20:46)
[2024-02-14] MEDS: Zolpidem Tartrate 5 MG TABLET PO (20:46)
[2024-02-14] MEDS: Atorvastatin Calcium 10 MG TABLET PO (20:46)
[2024-02-14] MEDS: Simethicone 80 MG TAB.CHEW PO (20:46)
[2024-02-14] MEDS: Donepezil HCl 5 MG TABLET PO (20:46)
[2024-02-15] MEDS: Levothyroxine Sodium 88 MCG TABLET PO (06:36)
[2024-02-15 06:45] LABS: Glucose, Whole Blood 112 mg/dL (60-115)
[2024-02-15 08:00] VITALS: BP 151/65; PULSE 63; RESP 18; TEMP 36.2; O2SAT 98
[2024-02-15] MEDS: SITagliptin Phosphate 100 MG TABLET PO (08:16)
[2024-02-15] MEDS: amLODIPine Besylate 2.5 MG TABLET PO (08:16)
[2024-02-15] MEDS: Cholecalciferol (Vitamin D3) 25 MCG TABLET PO (08:16)
[2024-02-15] MEDS: Memantine HCl 5 MG TABLET PO (08:16)
[2024-02-15] MEDS: Escitalopram Oxalate 10 MG TABLET PO (08:16)
[2024-02-15] MEDS: Acetaminophen 325 MG TABLET 650 MG PO ×2 (08:16→20:01)
[2024-02-15] MEDS: allopurinoL 100 MG TABLET PO (08:16)
[2024-02-15] MEDS: CYCLOSPORINE 1 EACH EYE-BOTH ×2 (08:17→19:54)
[2024-02-15] MEDS: Simethicone 80 MG TAB.CHEW PO ×2 (08:17→20:03)
[2024-02-15 11:32] VITALS: BMI 31.4
--- NOTE | 2024-02-15 16:18 | PC.NURSE ---
Patient was reported this evening to have been rubbing her feet together when her right great toe began to bleed. Upon assessment she was noted to have a cut next to her toe nail, patient stated The nail is ripped off, just pull it back and take the nail off . The area was cleaned and bacterial ointment was applied to the cut along with a band-aid around the toe. Patient was informed her toenail had not been ripped off and that this nurse was not going to be pulling it back, as she had requested. Provider Amaris Baker was notified and this nurse suggested an order be placed for a wound consult (as the pt is a diabetic).
--- NOTE | 2024-02-15 18:06 | P.PNPSI_ITS ---
Subjective Subjective Date of Service: 02/15/24 Reason For Visit: psychosis Subjective Notes: Conditional Voluntary Interim History: Pt slept through the night. She reports her right toe nail felt last night. Will add wound consult. She is taking medications as prescribed. She is awaiting placement. She is not very interactive with peers, nor social. Review of Systems Review of Systems Constitutional : No Weight loss, No Fever, No Chills, No Night Sweats, No Fatigue, No Malaise ENT/Mouth : No Hearing loss, No Ear Pain, No Nasal Congestion, No Sinus Pain, No Hoarseness, No sore throat, No Rhinorrhea, No Swallowing Difficulty Eyes: No Eye Pain, No Swelling, No Redness, No Foreign Body, No Discharge, No Vision Changes Cardiovascular : No Chest Pain, No SOB, No Dyspnea on Exertion, No Orthopnea, No Edema, No Palpitations Respiratory : No Cough, No Sputum, No Wheezing, No Smoke Exposure, No Dyspnea Gastrointestinal : No Nausea, No Vomiting, No Diarrhea, No Constipation, No abdominal Pain, No Hematochezia, No Melena Genitourinary : no irregular bleeding, No Dysuria, No Urinary Frequency, No Hematuria, No Urinary Incontinence, No Urgency, No Flank Pain, No Urinary Flow Changes, No Hesitancy Musculoskeletal : No joint pain, No Myalgias, No Joint Swelling Skin : No Skin Lesions, No rash Neuro : No Weakness, No Numbness, No Paresthesias, No Loss of Consciousness, No Dizziness, No Headache Psych : No Anxiety/Panic, No Depression, No SI/HI/AH/VH, No Social Issues, Heme/Lymph: No Bruising, No Bleeding,No Lymphadenopathy Endocrine : No Polyuria, No Polydipsia, No Temperature Intolerance Yes all other systems are reviewed and are negative Constitutional: Reports fatigue, Reports malaise and Reports weakness Reports vertigo and Reports dizziness Cardiovascular: Reports lightheadedness Reports vertigo, Reports dizziness and Reports weakness Endocrine: Reports fatigue Mental Status Exam Mental Status Exam Narrative: Appearance: wearing casual clothing, siting in chair, no NAD Behavior: cooperative Psychomotor: no retardation or agitation noted Speech: clear, normal rate/rhythm/volume, spontaneous TP: mostly linear TC: feeling okay Mood: fine Affect: congruent, SI: denies HI: denies VH/AH: none Delusions: not reported Insight/judgment: poor x 2. memory/cog: alert, oriented x 3. ACL 3.4 Diagnostics Vital Signs (24Hr): Vital Signs - 24 hr 02/14/24 20:00 02/15/24 08:00 Temperature 97.4 F 97.1 F Pulse Rate 65 63 Respiratory Rate 16 18 Blood Pressure 151/67 H 151/65 H Pulse Oximetry 98 98 Oxygen Delivery Method Room Air Room Air BMI result Body Mass Index 31.4 Labs 01/06/24 07:28 02/10/24 07:12 Labs: Laboratory Results - last 48 hr 02/13/24 02/14/24 02/15/24 20:10 05:39 06:38 POC Glucose 155 H 111 112 Medications Medications Current Medications Acetaminophen (Acetaminophen 325 Mg Tablet) 650 mg PO Q6H PRN PRN Reason: Headache/Pain Mild Scale (1-3) Last Admin: 02/15/24 08:16 Dose: 650 mg Al Hydroxide/Mg Hydroxide (Magnesium Hydrox/Alum Hydrox 30 Ml Oral.Susp) 30 ml PO Q6H PRN PRN Reason: Heartburn/Nausea Allopurinol (Allopurinol 100 Mg Tablet) 100 mg PO DAILY [facility] Last Admin: 02/15/24 08:16 Dose: 100 mg Amlodipine Besylate (Amlodipine Besylate 2.5 Mg Tablet) 2.5 mg PO DAILY [facility]; Protocol Last Admin: 02/15/24 08:16 Dose: 2.5 mg Artificial Tears (Artificial Tears 15 Ml Drops) 2 drop EYE-BOTH Q4H PRN PRN Reason: Dry Eyes Last Admin: 02/10/24 21:03 Dose: 2 drop Atorvastatin Calcium (Atorvastatin Calcium 10 Mg Tablet) 10 mg PO BEDTIME [facility] Last Admin: 02/14/24 20:46 Dose: 10 mg Cyclobenzaprine HCl (Cyclobenzaprine Hcl 5 Mg Tablet) 5 mg PO TID PRN PRN Reason: back spasm Last Admin: 02/11/24 20:19 Dose: 5 mg Diphenoxylate HCl/Atropine (Diphenoxylate/Atrop 2.5/0.025 Tablet) 1 tab PO DAILY PRN PRN Reason: loose stools Last Admin: 02/09/24 10:32 Dose: 1 tab Donepezil HCl (Donepezil Hcl 5 Mg Tablet) 5 mg PO BEDTIME [facility] Last Admin: 02/14/24 20:46 Dose: 5 mg Escitalopram Oxalate (Escitalopram Oxalate 10 Mg Tablet) 10 mg PO DAILY [facility] Last Admin: 02/15/24 08:16 Dose: 10 mg Levothyroxine Sodium (Levothyroxine Sodium 88 Mcg Tablet) 88 mcg PO DAILY@0600 [facility] Last Admin: 02/15/24 06:36 Dose: 88 mcg Loperamide HCl (Loperamide Hcl 2 Mg Capsule) 2 mg PO Q4H PRN PRN Reason: Loose Stool Lorazepam (Lorazepam 0.5 Mg Tablet) 0.5 mg PO DAILY PRN PRN Reason: Anxiety Last Admin: 01/29/24 09:27 Dose: 0.5 mg Magnesium Hydroxide (Milk Of Magnesia 30 Ml Oral.Susp) 30 ml PO DAILY PRN PRN Reason: Constipation Memantine (Memantine Hcl 5 Mg Tablet) 5 mg PO DAILY [facility] Last Admin: 02/15/24 08:16 Dose: 5 mg Metformin HCl (Metformin Hcl Er 750 Mg Tab.Er.24h) 750 mg PO BEDTIME [facility] Last Admin: 02/14/24 20:46 Dose: 750 mg Pt Own (Cyclosporine ([Restasis] 1 Drop)) 1 drop EYE-BOTH BID [facility] Last Admin: 02/15/24 08:17 Dose: 1 drop Olanzapine (Olanzapine 2.5 Mg Tablet) 2.5 mg PO Q4H PRN PRN Reason: agitation/acute psychosis Simethicone (Simethicone 80 Mg Tab.Chew) 80 mg PO QIDWMHS PRN PRN Reason: bloating Last Admin: 02/15/24 08:17 Dose: 80 mg Sitagliptin Phosphate (Sitagliptin Phosphate 100 Mg Tablet) 100 mg PO DAILY [facility] Last Admin: 02/15/24 08:16 Dose: 100 mg Trazodone HCl (Trazodone Hcl 50 Mg Tablet) 50 mg PO BEDTIME MRX1 PRN PRN Reason: Insomnia Last Admin: 02/05/24 21:08 Dose: 50 mg Vitamin D (Cholecalciferol (Vitamin D3) 25 Mcg Tablet) 25 mcg PO DAILY [facility] Last Admin: 02/15/24 08:16 Dose: 25 mcg Zolpidem Tartrate (Zolpidem Tartrate 5 Mg Tablet) 5 mg PO BEDTIME [facility] Last Admin: 02/14/24 20:46 Dose: 5 mg Allergies Allergies Allergy/AdvReac Type Severity Reaction Status Date / Time codeine Allergy Unknown Verified 12/07/23 20:27 Assessment & Plan Assessment & Plan (1) Dementia with psychotic disturbance: Status: Acute Code(s): F03.92 - Unspecified dementia, unspecified severity, with psychotic disturbance Plan Mrs. Jin is a 83 year-old woman with hx of vascular dementia with delusions of having an affair and some paranoid delusions. Some insight that this may not be the case but pt very much believes and takes action based on delusion despite here reporting that it may not be happening. It is unclear report from [facility] as to suicidal ideation. no indication of imminent harm to self or others, but collateral information is pending from family. May consider antipsychotic. PLAN 02/12 continue tx. 02/13 continue tx. 02/14 wound consult ordered Reason for continued inpatient stay Substantial Risk for: inability to function Time Spent With Patient Time: Total time managing care of this patient today ____ minutes.
[2024-02-15] MEDS: Atorvastatin Calcium 10 MG TABLET PO (19:52)
[2024-02-15] MEDS: Donepezil HCl 5 MG TABLET PO (19:53)
[2024-02-15] MEDS: metFORMIN HCl ER 750 MG TAB.ER.24H PO (19:53)
[2024-02-15] MEDS: Zolpidem Tartrate 5 MG TABLET PO (19:53)
[2024-02-15 20:00] VITALS: BP 129/59; PULSE 65; RESP 16; TEMP 36.2; O2SAT 98
[2024-02-15 20:10] LABS: Glucose, Whole Blood 182 mg/dL (60-115)
[2024-02-16] MEDS: Levothyroxine Sodium 88 MCG TABLET PO (06:14)
[2024-02-16 06:32] LABS: Glucose, Whole Blood 95 mg/dL (60-115)
[2024-02-16 08:00] VITALS: BP 132/62; PULSE 64; RESP 16; TEMP 36.4; O2SAT 97
[2024-02-16] MEDS: Memantine HCl 5 MG TABLET PO (08:38)
[2024-02-16] MEDS: Cholecalciferol (Vitamin D3) 25 MCG TABLET PO (08:38)
[2024-02-16] MEDS: amLODIPine Besylate 2.5 MG TABLET PO (08:39)
[2024-02-16] MEDS: Escitalopram Oxalate 10 MG TABLET PO (08:39)
[2024-02-16] MEDS: SITagliptin Phosphate 100 MG TABLET PO (08:39)
[2024-02-16] MEDS: allopurinoL 100 MG TABLET PO (08:39)
[2024-02-16] MEDS: CYCLOSPORINE 1 EACH EYE-BOTH ×2 (08:41→21:13)
[2024-02-16] MEDS: Acetaminophen 325 MG TABLET 650 MG PO ×2 (08:47→21:08)
[2024-02-16] MEDS: Simethicone 80 MG TAB.CHEW PO ×2 (08:48→21:52)
--- NOTE | 2024-02-16 18:33 | HO.PSYCHPN ---
Subjective Subjective Date of Service: 02/16/24 Reason For Visit: psychosis Interim History: Pt slept through the night. She reports her right toe nail felt last night. Will add wound consult. She is taking medications as prescribed. She is awaiting placement. She is not very interactive with peers, nor social. Review of Systems Review of Systems Constitutional : No Weight loss, No Fever, No Chills, No Night Sweats, No Fatigue, No Malaise ENT/Mouth : No Hearing loss, No Ear Pain, No Nasal Congestion, No Sinus Pain, No Hoarseness, No sore throat, No Rhinorrhea, No Swallowing Difficulty Eyes: No Eye Pain, No Swelling, No Redness, No Foreign Body, No Discharge, No Vision Changes Cardiovascular : No Chest Pain, No SOB, No Dyspnea on Exertion, No Orthopnea, No Edema, No Palpitations Respiratory : No Cough, No Sputum, No Wheezing, No Smoke Exposure, No Dyspnea Gastrointestinal : No Nausea, No Vomiting, No Diarrhea, No Constipation, No abdominal Pain, No Hematochezia, No Melena Genitourinary : no irregular bleeding, No Dysuria, No Urinary Frequency, No Hematuria, No Urinary Incontinence, No Urgency, No Flank Pain, No Urinary Flow Changes, No Hesitancy Musculoskeletal : No joint pain, No Myalgias, No Joint Swelling Skin : No Skin Lesions, No rash Neuro : No Weakness, No Numbness, No Paresthesias, No Loss of Consciousness, No Dizziness, No Headache Psych : No Anxiety/Panic, No Depression, No SI/HI/AH/VH, No Social Issues, Heme/Lymph: No Bruising, No Bleeding,No Lymphadenopathy Endocrine : No Polyuria, No Polydipsia, No Temperature Intolerance Yes all other systems are reviewed and are negative Constitutional: Reports fatigue, Reports malaise and Reports weakness Reports vertigo and Reports dizziness Cardiovascular: Reports lightheadedness Reports vertigo, Reports dizziness and Reports weakness Endocrine: Reports fatigue Mental Status Exam Mental Status Exam Narrative: Appearance: wearing casual clothing, siting in chair, no NAD Behavior: cooperative Psychomotor: no retardation or agitation noted Speech: clear, normal rate/rhythm/volume, spontaneous TP: mostly linear TC: feeling okay Mood: fine Affect: congruent, SI: denies HI: denies VH/AH: none Delusions: not reported Insight/judgment: poor x 2. memory/cog: alert, oriented x 3. ACL 3.4 Diagnostics Vital Signs (24Hr): Vital Signs - 24 hr 02/15/24 20:00 02/16/24 08:00 Temperature 97.2 F 97.6 F Pulse Rate 65 64 Respiratory Rate 16 16 Blood Pressure 129/59 L 132/62 Pulse Oximetry 98 97 Oxygen Delivery Method Room Air Room Air BMI result Body Mass Index 31.4 Labs 01/06/24 07:28 02/17/24 07:20 Labs: Laboratory Results - last 48 hr 02/15/24 02/15/24 02/16/24 06:38 20:01 06:17 POC Glucose 112 182 H 95 Medications Medications Current Medications Acetaminophen (Acetaminophen 325 Mg Tablet) 650 mg PO Q6H PRN PRN Reason: Headache/Pain Mild Scale (1-3) Last Admin: 02/16/24 08:47 Dose: 650 mg Al Hydroxide/Mg Hydroxide (Magnesium Hydrox/Alum Hydrox 30 Ml Oral.Susp) 30 ml PO Q6H PRN PRN Reason: Heartburn/Nausea Allopurinol (Allopurinol 100 Mg Tablet) 100 mg PO DAILY [facility] Last Admin: 02/16/24 08:39 Dose: 100 mg Amlodipine Besylate (Amlodipine Besylate 2.5 Mg Tablet) 2.5 mg PO DAILY [facility]; Protocol Last Admin: 02/16/24 08:39 Dose: 2.5 mg Artificial Tears (Artificial Tears 15 Ml Drops) 2 drop EYE-BOTH Q4H PRN PRN Reason: Dry Eyes Last Admin: 02/10/24 21:03 Dose: 2 drop Atorvastatin Calcium (Atorvastatin Calcium 10 Mg Tablet) 10 mg PO BEDTIME [facility] Last Admin: 02/15/24 19:52 Dose: 10 mg Cyclobenzaprine HCl (Cyclobenzaprine Hcl 5 Mg Tablet) 5 mg PO TID PRN PRN Reason: back spasm Last Admin: 02/11/24 20:19 Dose: 5 mg Diphenoxylate HCl/Atropine (Diphenoxylate/Atrop 2.5/0.025 Tablet) 1 tab PO DAILY PRN PRN Reason: loose stools Last Admin: 02/09/24 10:32 Dose: 1 tab Donepezil HCl (Donepezil Hcl 5 Mg Tablet) 5 mg PO BEDTIME [facility] Last Admin: 02/15/24 19:53 Dose: 5 mg Escitalopram Oxalate (Escitalopram Oxalate 10 Mg Tablet) 10 mg PO DAILY [facility] Last Admin: 02/16/24 08:39 Dose: 10 mg Levothyroxine Sodium (Levothyroxine Sodium 88 Mcg Tablet) 88 mcg PO DAILY@0600 [facility] Last Admin: 02/16/24 06:14 Dose: 88 mcg Loperamide HCl (Loperamide Hcl 2 Mg Capsule) 2 mg PO Q4H PRN PRN Reason: Loose Stool Lorazepam (Lorazepam 0.5 Mg Tablet) 0.5 mg PO DAILY PRN PRN Reason: Anxiety Last Admin: 01/29/24 09:27 Dose: 0.5 mg Magnesium Hydroxide (Milk Of Magnesia 30 Ml Oral.Susp) 30 ml PO DAILY PRN PRN Reason: Constipation Memantine (Memantine Hcl 5 Mg Tablet) 5 mg PO DAILY [facility] Last Admin: 02/16/24 08:38 Dose: 5 mg Metformin HCl (Metformin Hcl Er 750 Mg Tab.Er.24h) 750 mg PO BEDTIME [facility] Last Admin: 02/15/24 19:53 Dose: 750 mg Pt Own (Cyclosporine ([Restasis] 1 Drop)) 1 drop EYE-BOTH BID [facility] Last Admin: 02/16/24 08:41 Dose: 1 drop Olanzapine (Olanzapine 2.5 Mg Tablet) 2.5 mg PO Q4H PRN PRN Reason: agitation/acute psychosis Simethicone (Simethicone 80 Mg Tab.Chew) 80 mg PO QIDWMHS PRN PRN Reason: bloating Last Admin: 02/16/24 08:48 Dose: 80 mg Sitagliptin Phosphate (Sitagliptin Phosphate 100 Mg Tablet) 100 mg PO DAILY [facility] Last Admin: 02/16/24 08:39 Dose: 100 mg Trazodone HCl (Trazodone Hcl 50 Mg Tablet) 50 mg PO BEDTIME MRX1 PRN PRN Reason: Insomnia Last Admin: 02/05/24 21:08 Dose: 50 mg Vitamin D (Cholecalciferol (Vitamin D3) 25 Mcg Tablet) 25 mcg PO DAILY [facility] Last Admin: 02/16/24 08:38 Dose: 25 mcg Zolpidem Tartrate (Zolpidem Tartrate 5 Mg Tablet) 5 mg PO BEDTIME [facility] Last Admin: 02/15/24 19:53 Dose: 5 mg Allergies Allergies Allergy/AdvReac Type Severity Reaction Status Date / Time codeine Allergy Unknown Verified 12/07/23 20:27 Assessment & Plan Assessment & Plan (1) Dementia with psychotic disturbance: Status: Acute Code(s): F03.92 - Unspecified dementia, unspecified severity, with psychotic disturbance Plan Mrs. Jin is a 83 year-old woman with hx of vascular dementia with delusions of having an affair and some paranoid delusions. Some insight that this may not be the case but pt very much believes and takes action based on delusion despite here reporting that it may not be happening. It is unclear report from [facility] as to suicidal ideation. no indication of imminent harm to self or others, but collateral information is pending from family. May consider antipsychotic. PLAN 02/12 continue tx. 02/13 continue tx. 02/14 wound consult ordered Reason for continued inpatient stay Substantial Risk for: inability to function Time Spent With Patient Time: Total time managing care of this patient today ____ minutes.
[2024-02-16 20:00] VITALS: BP 149/67; PULSE 72; RESP 16; TEMP 36.2; O2SAT 97
[2024-02-16 20:59] LABS: Glucose, Whole Blood 129 mg/dL (60-115)
[2024-02-16] MEDS: Zolpidem Tartrate 5 MG TABLET PO (21:08)
[2024-02-16] MEDS: metFORMIN HCl ER 750 MG TAB.ER.24H PO (21:09)
[2024-02-16] MEDS: Donepezil HCl 5 MG TABLET PO (21:09)
[2024-02-16] MEDS: Atorvastatin Calcium 10 MG TABLET PO (21:09)
[2024-02-17] MEDS: Levothyroxine Sodium 88 MCG TABLET PO (06:11)
[2024-02-17 07:35] LABS: Glucose, Whole Blood 129 mg/dL (60-115)
[2024-02-17 08:08] LABS: Creatinine Clr Calc Pharmacy 35.6; Estimated Glomerular Filt Rate 40
[2024-02-17 08:54] VITALS: BP 138/65; PULSE 66; RESP 17; TEMP 36; O2SAT 98
[2024-02-17] MEDS: Acetaminophen 325 MG TABLET 650 MG PO ×2 (08:55→20:23)
[2024-02-17] MEDS: Escitalopram Oxalate 10 MG TABLET PO (08:55)
[2024-02-17] MEDS: Memantine HCl 5 MG TABLET PO (08:55)
[2024-02-17] MEDS: Cholecalciferol (Vitamin D3) 25 MCG TABLET PO (08:55)
[2024-02-17] MEDS: SITagliptin Phosphate 100 MG TABLET PO (08:55)
[2024-02-17] MEDS: allopurinoL 100 MG TABLET PO (08:55)
[2024-02-17] MEDS: amLODIPine Besylate 2.5 MG TABLET PO (08:55)
[2024-02-17] MEDS: CYCLOSPORINE 1 EACH EYE-BOTH ×2 (08:55→20:20)
[2024-02-17] MEDS: Simethicone 80 MG TAB.CHEW PO ×2 (08:56→20:22)
[2024-02-17] MEDS: Cyclobenzaprine HCl 5 MG TABLET PO (17:33)
[2024-02-17] MEDS: Artificial Tears 15 ML DROPS 2 DROP EYE-BOTH (17:47)
[2024-02-17 20:00] VITALS: BP 129/62; PULSE 72; RESP 16; TEMP 36.3; O2SAT 98
--- NOTE | 2024-02-17 20:10 | HO.PSYCHPN ---
Subjective Subjective Date of Service: 02/16/24 Reason For Visit: psychosis Interim History: Pt slept through the night. She reports her right toe nail felt last night. Will add wound consult. She is taking medications as prescribed. She is awaiting placement. She is not very interactive with peers, nor social. Review of Systems Review of Systems Constitutional : No Weight loss, No Fever, No Chills, No Night Sweats, No Fatigue, No Malaise ENT/Mouth : No Hearing loss, No Ear Pain, No Nasal Congestion, No Sinus Pain, No Hoarseness, No sore throat, No Rhinorrhea, No Swallowing Difficulty Eyes: No Eye Pain, No Swelling, No Redness, No Foreign Body, No Discharge, No Vision Changes Cardiovascular : No Chest Pain, No SOB, No Dyspnea on Exertion, No Orthopnea, No Edema, No Palpitations Respiratory : No Cough, No Sputum, No Wheezing, No Smoke Exposure, No Dyspnea Gastrointestinal : No Nausea, No Vomiting, No Diarrhea, No Constipation, No abdominal Pain, No Hematochezia, No Melena Genitourinary : no irregular bleeding, No Dysuria, No Urinary Frequency, No Hematuria, No Urinary Incontinence, No Urgency, No Flank Pain, No Urinary Flow Changes, No Hesitancy Musculoskeletal : No joint pain, No Myalgias, No Joint Swelling Skin : No Skin Lesions, No rash Neuro : No Weakness, No Numbness, No Paresthesias, No Loss of Consciousness, No Dizziness, No Headache Psych : No Anxiety/Panic, No Depression, No SI/HI/AH/VH, No Social Issues, Heme/Lymph: No Bruising, No Bleeding,No Lymphadenopathy Endocrine : No Polyuria, No Polydipsia, No Temperature Intolerance Yes all other systems are reviewed and are negative Constitutional: Reports fatigue, Reports malaise and Reports weakness Reports vertigo and Reports dizziness Cardiovascular: Reports lightheadedness Reports vertigo, Reports dizziness and Reports weakness Endocrine: Reports fatigue Mental Status Exam Mental Status Exam Narrative: Appearance: wearing casual clothing, siting in chair, no NAD Behavior: cooperative Psychomotor: no retardation or agitation noted Speech: clear, normal rate/rhythm/volume, spontaneous TP: mostly linear TC: feeling okay Mood: fine Affect: congruent, SI: denies HI: denies VH/AH: none Delusions: not reported Insight/judgment: poor x 2. memory/cog: alert, oriented x 3. ACL 3.4 Diagnostics Vital Signs (24Hr): Vital Signs - 24 hr 02/17/24 08:54 Temperature 96.8 F Pulse Rate 66 Respiratory Rate 17 Blood Pressure 138/65 Pulse Oximetry 98 Oxygen Delivery Method Room Air BMI result Body Mass Index 31.4 Labs 01/06/24 07:28 02/17/24 07:20 Labs: Laboratory Results - last 48 hr 02/15/24 02/16/24 02/16/24 20:01 06:17 20:54 Creatinine Estim Creat Clear Calc Estimated GFR POC Glucose 182 H 95 129 H 02/17/24 02/17/24 02/17/24 06:54 07:20 07:20 Creatinine Cancelled 1.27 Estim Creat Clear Calc Cancelled Estimated GFR POC Glucose 129 H 02/17/24 02/17/24 07:20 07:20 Creatinine Estim Creat Clear Calc 35.6 Estimated GFR Cancelled 40 POC Glucose Medications Medications Current Medications Acetaminophen (Acetaminophen 325 Mg Tablet) 650 mg PO Q6H PRN PRN Reason: Headache/Pain Mild Scale (1-3) Last Admin: 02/17/24 08:55 Dose: 650 mg Al Hydroxide/Mg Hydroxide (Magnesium Hydrox/Alum Hydrox 30 Ml Oral.Susp) 30 ml PO Q6H PRN PRN Reason: Heartburn/Nausea Allopurinol (Allopurinol 100 Mg Tablet) 100 mg PO DAILY [facility] Last Admin: 02/17/24 08:55 Dose: 100 mg Amlodipine Besylate (Amlodipine Besylate 2.5 Mg Tablet) 2.5 mg PO DAILY [facility]; Protocol Last Admin: 02/17/24 08:55 Dose: 2.5 mg Artificial Tears (Artificial Tears 15 Ml Drops) 2 drop EYE-BOTH Q4H PRN PRN Reason: Dry Eyes Last Admin: 02/17/24 17:47 Dose: 2 drop Atorvastatin Calcium (Atorvastatin Calcium 10 Mg Tablet) 10 mg PO BEDTIME [facility] Last Admin: 02/16/24 21:09 Dose: 10 mg Cyclobenzaprine HCl (Cyclobenzaprine Hcl 5 Mg Tablet) 5 mg PO TID PRN PRN Reason: back spasm Last Admin: 02/17/24 17:33 Dose: 5 mg Diphenoxylate HCl/Atropine (Diphenoxylate/Atrop 2.5/0.025 Tablet) 1 tab PO DAILY PRN PRN Reason: loose stools Last Admin: 02/09/24 10:32 Dose: 1 tab Donepezil HCl (Donepezil Hcl 5 Mg Tablet) 5 mg PO BEDTIME [facility] Last Admin: 02/16/24 21:09 Dose: 5 mg Escitalopram Oxalate (Escitalopram Oxalate 10 Mg Tablet) 10 mg PO DAILY [facility] Last Admin: 02/17/24 08:55 Dose: 10 mg Levothyroxine Sodium (Levothyroxine Sodium 88 Mcg Tablet) 88 mcg PO DAILY@0600 [facility] Last Admin: 02/17/24 06:11 Dose: 88 mcg Loperamide HCl (Loperamide Hcl 2 Mg Capsule) 2 mg PO Q4H PRN PRN Reason: Loose Stool Lorazepam (Lorazepam 0.5 Mg Tablet) 0.5 mg PO DAILY PRN PRN Reason: Anxiety Last Admin: 01/29/24 09:27 Dose: 0.5 mg Magnesium Hydroxide (Milk Of Magnesia 30 Ml Oral.Susp) 30 ml PO DAILY PRN PRN Reason: Constipation Memantine (Memantine Hcl 5 Mg Tablet) 5 mg PO DAILY [facility] Last Admin: 02/17/24 08:55 Dose: 5 mg Metformin HCl (Metformin Hcl Er 750 Mg Tab.Er.24h) 750 mg PO BEDTIME [facility] Last Admin: 02/16/24 21:09 Dose: 750 mg Pt Own (Cyclosporine ([Restasis] 1 Drop)) 1 drop EYE-BOTH BID [facility] Last Admin: 02/17/24 08:55 Dose: 1 drop Olanzapine (Olanzapine 2.5 Mg Tablet) 2.5 mg PO Q4H PRN PRN Reason: agitation/acute psychosis Simethicone (Simethicone 80 Mg Tab.Chew) 80 mg PO QIDWMHS PRN PRN Reason: bloating Last Admin: 02/17/24 08:56 Dose: 80 mg Sitagliptin Phosphate (Sitagliptin Phosphate 100 Mg Tablet) 100 mg PO DAILY [facility] Last Admin: 02/17/24 08:55 Dose: 100 mg Trazodone HCl (Trazodone Hcl 50 Mg Tablet) 50 mg PO BEDTIME MRX1 PRN PRN Reason: Insomnia Last Admin: 02/05/24 21:08 Dose: 50 mg Vitamin D (Cholecalciferol (Vitamin D3) 25 Mcg Tablet) 25 mcg PO DAILY [facility] Last Admin: 02/17/24 08:55 Dose: 25 mcg Zolpidem Tartrate (Zolpidem Tartrate 5 Mg Tablet) 5 mg PO BEDTIME [facility] Last Admin: 02/16/24 21:08 Dose: 5 mg Allergies Allergies Allergy/AdvReac Type Severity Reaction Status Date / Time codeine Allergy Unknown Verified 12/07/23 20:27 Assessment & Plan Assessment & Plan (1) Dementia with psychotic disturbance: Status: Acute Code(s): F03.92 - Unspecified dementia, unspecified severity, with psychotic disturbance Plan Mrs. Jin is a 83 year-old woman with hx of vascular dementia with delusions of having an affair and some paranoid delusions. Some insight that this may not be the case but pt very much believes and takes action based on delusion despite here reporting that it may not be happening. It is unclear report from [facility] as to suicidal ideation. no indication of imminent harm to self or others, but collateral information is pending from family. May consider antipsychotic. PLAN 02/12 continue tx. 02/13 continue tx. 02/14 wound consult ordered Reason for continued inpatient stay Substantial Risk for: inability to function Time Spent With Patient Time: Total time managing care of this patient today ____ minutes.
[2024-02-17] MEDS: metFORMIN HCl ER 750 MG TAB.ER.24H PO (20:22)
[2024-02-17] MEDS: Zolpidem Tartrate 5 MG TABLET PO (20:22)
[2024-02-17] MEDS: Donepezil HCl 5 MG TABLET PO (20:23)
[2024-02-17] MEDS: Atorvastatin Calcium 10 MG TABLET PO (20:23)
[2024-02-17 20:35] LABS: Glucose, Whole Blood 132 mg/dL (60-115)
[2024-02-18] MEDS: Levothyroxine Sodium 88 MCG TABLET PO (06:22)
[2024-02-18 06:38] LABS: Glucose, Whole Blood 110 mg/dL (60-115)
[2024-02-18 08:28] VITALS: BP 144/67; PULSE 66; RESP 17; TEMP 36.2; O2SAT 99
[2024-02-18] MEDS: Cholecalciferol (Vitamin D3) 25 MCG TABLET PO (08:37)
[2024-02-18] MEDS: SITagliptin Phosphate 100 MG TABLET PO (08:37)
[2024-02-18] MEDS: amLODIPine Besylate 2.5 MG TABLET PO (08:37)
[2024-02-18] MEDS: allopurinoL 100 MG TABLET PO (08:37)
[2024-02-18] MEDS: Escitalopram Oxalate 10 MG TABLET PO (08:37)
[2024-02-18] MEDS: Memantine HCl 5 MG TABLET PO (08:37)
[2024-02-18] MEDS: Acetaminophen 325 MG TABLET 650 MG PO ×2 (08:38→20:52)
[2024-02-18] MEDS: CYCLOSPORINE 1 EACH EYE-BOTH ×2 (08:39→20:51)
[2024-02-18] MEDS: Simethicone 80 MG TAB.CHEW PO ×2 (08:40→20:52)
--- NOTE | 2024-02-18 16:02 | HO.PSYCHPN ---
Subjective Subjective Date of Service: 02/18/24 Reason For Visit: psychosis Subjective Notes: Conditional Voluntary Interim History: Pt slept through the night. She reports her right toe nail felt last night. Will add wound consult. She is taking medications as prescribed. She is awaiting placement. She is not very interactive with peers, nor social. Review of Systems Review of Systems Constitutional : No Weight loss, No Fever, No Chills, No Night Sweats, No Fatigue, No Malaise ENT/Mouth : No Hearing loss, No Ear Pain, No Nasal Congestion, No Sinus Pain, No Hoarseness, No sore throat, No Rhinorrhea, No Swallowing Difficulty Eyes: No Eye Pain, No Swelling, No Redness, No Foreign Body, No Discharge, No Vision Changes Cardiovascular : No Chest Pain, No SOB, No Dyspnea on Exertion, No Orthopnea, No Edema, No Palpitations Respiratory : No Cough, No Sputum, No Wheezing, No Smoke Exposure, No Dyspnea Gastrointestinal : No Nausea, No Vomiting, No Diarrhea, No Constipation, No abdominal Pain, No Hematochezia, No Melena Genitourinary : no irregular bleeding, No Dysuria, No Urinary Frequency, No Hematuria, No Urinary Incontinence, No Urgency, No Flank Pain, No Urinary Flow Changes, No Hesitancy Musculoskeletal : No joint pain, No Myalgias, No Joint Swelling Skin : No Skin Lesions, No rash Neuro : No Weakness, No Numbness, No Paresthesias, No Loss of Consciousness, No Dizziness, No Headache Psych : No Anxiety/Panic, No Depression, No SI/HI/AH/VH, No Social Issues, Heme/Lymph: No Bruising, No Bleeding,No Lymphadenopathy Endocrine : No Polyuria, No Polydipsia, No Temperature Intolerance Yes all other systems are reviewed and are negative Constitutional: Reports fatigue, Reports malaise and Reports weakness Reports vertigo and Reports dizziness Cardiovascular: Reports lightheadedness Reports vertigo, Reports dizziness and Reports weakness Endocrine: Reports fatigue Mental Status Exam Mental Status Exam Narrative: Appearance: wearing casual clothing, siting in chair, no NAD Behavior: cooperative Psychomotor: no retardation or agitation noted Speech: clear, normal rate/rhythm/volume, spontaneous TP: mostly linear TC: feeling okay Mood: fine Affect: congruent, SI: denies HI: denies VH/AH: none Delusions: not reported Insight/judgment: poor x 2. memory/cog: alert, oriented x 3. ACL 3.4 Diagnostics Vital Signs (24Hr): Vital Signs - 24 hr 02/17/24 20:00 02/18/24 08:28 Temperature 97.4 F 97.2 F Pulse Rate 72 66 Respiratory Rate 16 17 Blood Pressure 129/62 144/67 H Pulse Oximetry 98 99 Oxygen Delivery Method Room Air Room Air BMI result Body Mass Index 31.4 Labs 01/06/24 07:28 02/17/24 07:20 Labs: Laboratory Results - last 48 hr 02/16/24 02/17/24 02/17/24 20:54 06:54 07:20 Creatinine Cancelled Estim Creat Clear Calc Estimated GFR POC Glucose 129 H 129 H 02/17/24 02/17/24 02/17/24 07:20 07:20 07:20 Creatinine 1.27 Estim Creat Clear Calc Cancelled 35.6 Estimated GFR Cancelled 40 POC Glucose 02/17/24 02/18/24 20:20 06:22 Creatinine Estim Creat Clear Calc Estimated GFR POC Glucose 132 H 110 Medications Medications Current Medications Acetaminophen (Acetaminophen 325 Mg Tablet) 650 mg PO Q6H PRN PRN Reason: Headache/Pain Mild Scale (1-3) Last Admin: 02/18/24 08:38 Dose: 650 mg Al Hydroxide/Mg Hydroxide (Magnesium Hydrox/Alum Hydrox 30 Ml Oral.Susp) 30 ml PO Q6H PRN PRN Reason: Heartburn/Nausea Allopurinol (Allopurinol 100 Mg Tablet) 100 mg PO DAILY [facility] Last Admin: 02/18/24 08:37 Dose: 100 mg Amlodipine Besylate (Amlodipine Besylate 2.5 Mg Tablet) 2.5 mg PO DAILY [facility]; Protocol Last Admin: 02/18/24 08:37 Dose: 2.5 mg Artificial Tears (Artificial Tears 15 Ml Drops) 2 drop EYE-BOTH Q4H PRN PRN Reason: Dry Eyes Last Admin: 02/17/24 17:47 Dose: 2 drop Atorvastatin Calcium (Atorvastatin Calcium 10 Mg Tablet) 10 mg PO BEDTIME [facility] Last Admin: 02/17/24 20:23 Dose: 10 mg Cyclobenzaprine HCl (Cyclobenzaprine Hcl 5 Mg Tablet) 5 mg PO TID PRN PRN Reason: back spasm Last Admin: 02/17/24 17:33 Dose: 5 mg Diphenoxylate HCl/Atropine (Diphenoxylate/Atrop 2.5/0.025 Tablet) 1 tab PO DAILY PRN PRN Reason: loose stools Last Admin: 02/09/24 10:32 Dose: 1 tab Donepezil HCl (Donepezil Hcl 5 Mg Tablet) 5 mg PO BEDTIME [facility] Last Admin: 02/17/24 20:23 Dose: 5 mg Escitalopram Oxalate (Escitalopram Oxalate 10 Mg Tablet) 10 mg PO DAILY [facility] Last Admin: 02/18/24 08:37 Dose: 10 mg Levothyroxine Sodium (Levothyroxine Sodium 88 Mcg Tablet) 88 mcg PO DAILY@0600 [facility] Last Admin: 02/18/24 06:22 Dose: 88 mcg Loperamide HCl (Loperamide Hcl 2 Mg Capsule) 2 mg PO Q4H PRN PRN Reason: Loose Stool Lorazepam (Lorazepam 0.5 Mg Tablet) 0.5 mg PO DAILY PRN PRN Reason: Anxiety Last Admin: 01/29/24 09:27 Dose: 0.5 mg Magnesium Hydroxide (Milk Of Magnesia 30 Ml Oral.Susp) 30 ml PO DAILY PRN PRN Reason: Constipation Memantine (Memantine Hcl 5 Mg Tablet) 5 mg PO DAILY [facility] Last Admin: 02/18/24 08:37 Dose: 5 mg Metformin HCl (Metformin Hcl Er 750 Mg Tab.Er.24h) 750 mg PO BEDTIME [facility] Last Admin: 02/17/24 20:22 Dose: 750 mg Pt Own (Cyclosporine ([Restasis] 1 Drop)) 1 drop EYE-BOTH BID [facility] Last Admin: 02/18/24 08:39 Dose: 1 drop Olanzapine (Olanzapine 2.5 Mg Tablet) 2.5 mg PO Q4H PRN PRN Reason: agitation/acute psychosis Simethicone (Simethicone 80 Mg Tab.Chew) 80 mg PO QIDWMHS PRN PRN Reason: bloating Last Admin: 02/18/24 08:40 Dose: 80 mg Sitagliptin Phosphate (Sitagliptin Phosphate 100 Mg Tablet) 100 mg PO DAILY [facility] Last Admin: 02/18/24 08:37 Dose: 100 mg Trazodone HCl (Trazodone Hcl 50 Mg Tablet) 50 mg PO BEDTIME MRX1 PRN PRN Reason: Insomnia Last Admin: 02/05/24 21:08 Dose: 50 mg Vitamin D (Cholecalciferol (Vitamin D3) 25 Mcg Tablet) 25 mcg PO DAILY [facility] Last Admin: 02/18/24 08:37 Dose: 25 mcg Zolpidem Tartrate (Zolpidem Tartrate 5 Mg Tablet) 5 mg PO BEDTIME [facility] Last Admin: 02/17/24 20:22 Dose: 5 mg Allergies Allergies Allergy/AdvReac Type Severity Reaction Status Date / Time codeine Allergy Unknown Verified 12/07/23 20:27 Assessment & Plan Assessment & Plan (1) Dementia with psychotic disturbance: Status: Acute Code(s): F03.92 - Unspecified dementia, unspecified severity, with psychotic disturbance Plan Mrs. Jin is a 83 year-old woman with hx of vascular dementia with delusions of having an affair and some paranoid delusions. Some insight that this may not be the case but pt very much believes and takes action based on delusion despite here reporting that it may not be happening. It is unclear report from [facility] as to suicidal ideation. no indication of imminent harm to self or others, but collateral information is pending from family. May consider antipsychotic. PLAN 02/12 continue tx. 02/13 continue tx. 02/14 wound consult ordered Reason for continued inpatient stay Substantial Risk for: inability to function Time Spent With Patient Time: Total time managing care of this patient today ____ minutes.
[2024-02-18] MEDS: Artificial Tears 15 ML DROPS 2 DROP EYE-BOTH (18:52)
[2024-02-18 20:00] VITALS: BP 132/61; PULSE 65; RESP 18; TEMP 36.3; O2SAT 99
[2024-02-18] MEDS: Zolpidem Tartrate 5 MG TABLET PO (20:53)
[2024-02-18] MEDS: Atorvastatin Calcium 10 MG TABLET PO (20:53)
[2024-02-18] MEDS: Donepezil HCl 5 MG TABLET PO (20:53)
[2024-02-18] MEDS: metFORMIN HCl ER 750 MG TAB.ER.24H PO (20:53)
[2024-02-19] MEDS: Levothyroxine Sodium 88 MCG TABLET PO (06:40)
[2024-02-19 06:46] LABS: Glucose, Whole Blood 110 mg/dL (60-115)
[2024-02-19 08:00] VITALS: BP 149/66; PULSE 72; RESP 18; O2SAT 98
[2024-02-19 08:09] VITALS: BP 149/66
[2024-02-19] MEDS: Memantine HCl 5 MG TABLET PO (08:09)
[2024-02-19] MEDS: amLODIPine Besylate 2.5 MG TABLET PO (08:09)
[2024-02-19] MEDS: Simethicone 80 MG TAB.CHEW PO ×2 (08:09→20:56)
[2024-02-19] MEDS: Cholecalciferol (Vitamin D3) 25 MCG TABLET PO (08:09)
[2024-02-19] MEDS: SITagliptin Phosphate 100 MG TABLET PO (08:09)
[2024-02-19] MEDS: Acetaminophen 325 MG TABLET 650 MG PO ×2 (08:09→20:56)
[2024-02-19] MEDS: allopurinoL 100 MG TABLET PO (08:09)
[2024-02-19] MEDS: Escitalopram Oxalate 10 MG TABLET PO (08:10)
[2024-02-19] MEDS: CYCLOSPORINE 1 EACH EYE-BOTH ×2 (08:10→20:55)
[2024-02-19] MEDS: Cyclobenzaprine HCl 5 MG TABLET PO (14:09)
[2024-02-19 20:00] VITALS: BP 112/53; PULSE 74; RESP 18; TEMP 36.2; O2SAT 97
--- NOTE | 2024-02-19 20:25 | P.PNPSI_ITS ---
Subjective Subjective Date of Service: 02/19/24 Reason For Visit: psychosis Subjective Notes: Conditional Voluntary Interim History: Pt slept through the night. She is mostly in bed, reports she can't stay too long sitting in chair due to her back hurting, otherwise prefers to stay in bed. She is awaiting placement. She is not very interactive with peers, nor social. Review of Systems Review of Systems Constitutional : No Weight loss, No Fever, No Chills, No Night Sweats, No Fatigue, No Malaise ENT/Mouth : No Hearing loss, No Ear Pain, No Nasal Congestion, No Sinus Pain, No Hoarseness, No sore throat, No Rhinorrhea, No Swallowing Difficulty Eyes: No Eye Pain, No Swelling, No Redness, No Foreign Body, No Discharge, No Vision Changes Cardiovascular : No Chest Pain, No SOB, No Dyspnea on Exertion, No Orthopnea, No Edema, No Palpitations Respiratory : No Cough, No Sputum, No Wheezing, No Smoke Exposure, No Dyspnea Gastrointestinal : No Nausea, No Vomiting, No Diarrhea, No Constipation, No abdominal Pain, No Hematochezia, No Melena Genitourinary : no irregular bleeding, No Dysuria, No Urinary Frequency, No Hematuria, No Urinary Incontinence, No Urgency, No Flank Pain, No Urinary Flow Changes, No Hesitancy Musculoskeletal : No joint pain, No Myalgias, No Joint Swelling Skin : No Skin Lesions, No rash Neuro : No Weakness, No Numbness, No Paresthesias, No Loss of Consciousness, No Dizziness, No Headache Psych : No Anxiety/Panic, No Depression, No SI/HI/AH/VH, No Social Issues, Heme/Lymph: No Bruising, No Bleeding,No Lymphadenopathy Endocrine : No Polyuria, No Polydipsia, No Temperature Intolerance Yes all other systems are reviewed and are negative Constitutional: Reports fatigue, Reports malaise and Reports weakness Reports vertigo and Reports dizziness Cardiovascular: Reports lightheadedness Reports vertigo, Reports dizziness and Reports weakness Endocrine: Reports fatigue Mental Status Exam Mental Status Exam Narrative: Appearance: wearing casual clothing, siting in chair, no NAD Behavior: cooperative Psychomotor: no retardation or agitation noted Speech: clear, normal rate/rhythm/volume, spontaneous TP: mostly linear TC: feeling okay Mood: fine Affect: congruent, SI: denies HI: denies VH/AH: none Delusions: not reported Insight/judgment: poor x 2. memory/cog: alert, oriented x 3. ACL 3.4 Diagnostics Vital Signs (24Hr): Vital Signs - 24 hr 02/19/24 08:00 02/19/24 08:09 Pulse Rate 72 Respiratory Rate 18 Blood Pressure 149/66 H 149/66 H Pulse Oximetry 98 Oxygen Delivery Method Room Air BMI result Body Mass Index 31.4 Labs 01/06/24 07:28 02/17/24 07:20 Labs: Laboratory Results - last 48 hr 02/17/24 02/18/24 02/19/24 20:20 06:22 06:39 POC Glucose 132 H 110 110 Medications Medications Current Medications Acetaminophen (Acetaminophen 325 Mg Tablet) 650 mg PO Q6H PRN PRN Reason: Headache/Pain Mild Scale (1-3) Last Admin: 02/19/24 08:09 Dose: 650 mg Al Hydroxide/Mg Hydroxide (Magnesium Hydrox/Alum Hydrox 30 Ml Oral.Susp) 30 ml PO Q6H PRN PRN Reason: Heartburn/Nausea Allopurinol (Allopurinol 100 Mg Tablet) 100 mg PO DAILY [facility] Last Admin: 02/19/24 08:09 Dose: 100 mg Amlodipine Besylate (Amlodipine Besylate 2.5 Mg Tablet) 2.5 mg PO DAILY [facility]; Protocol Last Admin: 02/19/24 08:09 Dose: 2.5 mg Artificial Tears (Artificial Tears 15 Ml Drops) 2 drop EYE-BOTH Q4H PRN PRN Reason: Dry Eyes Last Admin: 02/18/24 18:52 Dose: 2 drop Atorvastatin Calcium (Atorvastatin Calcium 10 Mg Tablet) 10 mg PO BEDTIME [facility] Last Admin: 02/18/24 20:53 Dose: 10 mg Cyclobenzaprine HCl (Cyclobenzaprine Hcl 5 Mg Tablet) 5 mg PO TID PRN PRN Reason: back spasm Last Admin: 02/19/24 14:09 Dose: 5 mg Diphenoxylate HCl/Atropine (Diphenoxylate/Atrop 2.5/0.025 Tablet) 1 tab PO DAILY PRN PRN Reason: loose stools Last Admin: 02/09/24 10:32 Dose: 1 tab Donepezil HCl (Donepezil Hcl 5 Mg Tablet) 5 mg PO BEDTIME [facility] Last Admin: 02/18/24 20:53 Dose: 5 mg Escitalopram Oxalate (Escitalopram Oxalate 10 Mg Tablet) 10 mg PO DAILY [facility] Last Admin: 02/19/24 08:10 Dose: 10 mg Levothyroxine Sodium (Levothyroxine Sodium 88 Mcg Tablet) 88 mcg PO DAILY@0600 [facility] Last Admin: 02/19/24 06:40 Dose: 88 mcg Loperamide HCl (Loperamide Hcl 2 Mg Capsule) 2 mg PO Q4H PRN PRN Reason: Loose Stool Lorazepam (Lorazepam 0.5 Mg Tablet) 0.5 mg PO DAILY PRN PRN Reason: Anxiety Last Admin: 01/29/24 09:27 Dose: 0.5 mg Magnesium Hydroxide (Milk Of Magnesia 30 Ml Oral.Susp) 30 ml PO DAILY PRN PRN Reason: Constipation Memantine (Memantine Hcl 5 Mg Tablet) 5 mg PO DAILY [facility] Last Admin: 02/19/24 08:09 Dose: 5 mg Metformin HCl (Metformin Hcl 500 Mg Tablet) 500 mg PO BEDTIME [facility] Pt Own (Cyclosporine ([Restasis] 1 Drop)) 1 drop EYE-BOTH BID [facility] Last Admin: 02/19/24 08:10 Dose: 1 drop Olanzapine (Olanzapine 2.5 Mg Tablet) 2.5 mg PO Q4H PRN PRN Reason: agitation/acute psychosis Simethicone (Simethicone 80 Mg Tab.Chew) 80 mg PO QIDWMHS PRN PRN Reason: bloating Last Admin: 02/19/24 08:09 Dose: 80 mg Sitagliptin Phosphate (Sitagliptin Phosphate 100 Mg Tablet) 100 mg PO DAILY [facility] Last Admin: 02/19/24 08:09 Dose: 100 mg Trazodone HCl (Trazodone Hcl 50 Mg Tablet) 50 mg PO BEDTIME MRX1 PRN PRN Reason: Insomnia Last Admin: 02/05/24 21:08 Dose: 50 mg Vitamin D (Cholecalciferol (Vitamin D3) 25 Mcg Tablet) 25 mcg PO DAILY [facility] Last Admin: 02/19/24 08:09 Dose: 25 mcg Zolpidem Tartrate (Zolpidem Tartrate 5 Mg Tablet) 5 mg PO BEDTIME [facility] Last Admin: 02/18/24 20:53 Dose: 5 mg Allergies Allergies Allergy/AdvReac Type Severity Reaction Status Date / Time codeine Allergy Unknown Verified 12/07/23 20:27 Assessment & Plan Assessment & Plan (1) Dementia with psychotic disturbance: Status: Acute Code(s): F03.92 - Unspecified dementia, unspecified severity, with psychotic disturbance Plan Mrs. Jin is a 83 year-old woman with hx of vascular dementia with delusions of having an affair and some paranoid delusions. Some insight that this may not be the case but pt very much believes and takes action based on delusion despite here reporting that it may not be happening. It is unclear report from [facility] as to suicidal ideation. no indication of imminent harm to self or others, but collateral information is pending from family. May consider antipsychotic. PLAN 02/12 continue tx. 02/13 continue tx. 02/14 wound consult ordered Reason for continued inpatient stay Substantial Risk for: inability to function Time Spent With Patient Time: Total time managing care of this patient today ____ minutes.
[2024-02-19] MEDS: Zolpidem Tartrate 5 MG TABLET PO (20:56)
[2024-02-19] MEDS: Atorvastatin Calcium 10 MG TABLET PO (20:56)
[2024-02-19] MEDS: Donepezil HCl 5 MG TABLET PO (20:56)
[2024-02-19] MEDS: metFORMIN HCl 500 MG TABLET PO (20:56)
[2024-02-20] MEDS: Levothyroxine Sodium 88 MCG TABLET PO (06:40)
[2024-02-20 06:48] LABS: Glucose, Whole Blood 112 mg/dL (60-115)
[2024-02-20 08:05] VITALS: BP 116/63; PULSE 66; RESP 18; TEMP 36.2; O2SAT 96
[2024-02-20] MEDS: Cholecalciferol (Vitamin D3) 25 MCG TABLET PO (08:23)
[2024-02-20] MEDS: Acetaminophen 325 MG TABLET 650 MG PO ×2 (08:23→20:40)
[2024-02-20] MEDS: Memantine HCl 5 MG TABLET PO (08:23)
[2024-02-20] MEDS: SITagliptin Phosphate 100 MG TABLET PO (08:23)
[2024-02-20] MEDS: amLODIPine Besylate 2.5 MG TABLET PO (08:23)
[2024-02-20] MEDS: Escitalopram Oxalate 10 MG TABLET PO (08:23)
[2024-02-20] MEDS: allopurinoL 100 MG TABLET PO (08:23)
[2024-02-20] MEDS: Simethicone 80 MG TAB.CHEW PO ×2 (08:23→20:40)
[2024-02-20] MEDS: CYCLOSPORINE 1 EACH EYE-BOTH ×2 (08:25→20:40)
--- NOTE | 2024-02-20 16:25 | P.PNPSI_ITS ---
Subjective Subjective Date of Service: 02/20/24 Reason For Visit: psychosis Interim History: Pt slept through the night. She is mostly in bed, reports she can't stay too long sitting in chair due to her back hurting, otherwise prefers to stay in bed. She is awaiting placement. She is not very interactive with peers, nor social. Review of Systems Review of Systems Constitutional : No Weight loss, No Fever, No Chills, No Night Sweats, No Fatigue, No Malaise ENT/Mouth : No Hearing loss, No Ear Pain, No Nasal Congestion, No Sinus Pain, No Hoarseness, No sore throat, No Rhinorrhea, No Swallowing Difficulty Eyes: No Eye Pain, No Swelling, No Redness, No Foreign Body, No Discharge, No Vision Changes Cardiovascular : No Chest Pain, No SOB, No Dyspnea on Exertion, No Orthopnea, No Edema, No Palpitations Respiratory : No Cough, No Sputum, No Wheezing, No Smoke Exposure, No Dyspnea Gastrointestinal : No Nausea, No Vomiting, No Diarrhea, No Constipation, No abdominal Pain, No Hematochezia, No Melena Genitourinary : no irregular bleeding, No Dysuria, No Urinary Frequency, No Hematuria, No Urinary Incontinence, No Urgency, No Flank Pain, No Urinary Flow Changes, No Hesitancy Musculoskeletal : No joint pain, No Myalgias, No Joint Swelling Skin : No Skin Lesions, No rash Neuro : No Weakness, No Numbness, No Paresthesias, No Loss of Consciousness, No Dizziness, No Headache Psych : No Anxiety/Panic, No Depression, No SI/HI/AH/VH, No Social Issues, Heme/Lymph: No Bruising, No Bleeding,No Lymphadenopathy Endocrine : No Polyuria, No Polydipsia, No Temperature Intolerance Yes all other systems are reviewed and are negative Constitutional: Reports fatigue, Reports malaise and Reports weakness Reports vertigo and Reports dizziness Cardiovascular: Reports lightheadedness Reports vertigo, Reports dizziness and Reports weakness Endocrine: Reports fatigue Mental Status Exam Mental Status Exam Narrative: Appearance: wearing casual clothing, siting in chair, no NAD Behavior: cooperative Psychomotor: no retardation or agitation noted Speech: clear, normal rate/rhythm/volume, spontaneous TP: mostly linear TC: feeling okay Mood: fine Affect: congruent, SI: denies HI: denies VH/AH: none Delusions: not reported Insight/judgment: poor x 2. memory/cog: alert, oriented x 3. ACL 3.4 Diagnostics Vital Signs (24Hr): Vital Signs - 24 hr 02/19/24 20:00 02/20/24 08:05 Temperature 97.1 F 97.2 F Pulse Rate 74 66 Respiratory Rate 18 18 Blood Pressure 112/53 L 116/63 Pulse Oximetry 97 96 Oxygen Delivery Method Room Air Room Air BMI result Body Mass Index 31.4 Labs 01/06/24 07:28 02/17/24 07:20 Labs: Laboratory Results - last 48 hr 02/19/24 02/20/24 06:39 06:42 POC Glucose 110 112 Medications Medications Current Medications Acetaminophen (Acetaminophen 325 Mg Tablet) 650 mg PO Q6H PRN PRN Reason: Headache/Pain Mild Scale (1-3) Last Admin: 02/20/24 08:23 Dose: 650 mg Al Hydroxide/Mg Hydroxide (Magnesium Hydrox/Alum Hydrox 30 Ml Oral.Susp) 30 ml PO Q6H PRN PRN Reason: Heartburn/Nausea Allopurinol (Allopurinol 100 Mg Tablet) 100 mg PO DAILY [facility] Last Admin: 02/20/24 08:23 Dose: 100 mg Amlodipine Besylate (Amlodipine Besylate 2.5 Mg Tablet) 2.5 mg PO DAILY [facility]; Protocol Last Admin: 02/20/24 08:23 Dose: 2.5 mg Artificial Tears (Artificial Tears 15 Ml Drops) 2 drop EYE-BOTH Q4H PRN PRN Reason: Dry Eyes Last Admin: 02/18/24 18:52 Dose: 2 drop Atorvastatin Calcium (Atorvastatin Calcium 10 Mg Tablet) 10 mg PO BEDTIME [facility] Last Admin: 02/19/24 20:56 Dose: 10 mg Cyclobenzaprine HCl (Cyclobenzaprine Hcl 5 Mg Tablet) 5 mg PO TID PRN PRN Reason: back spasm Last Admin: 02/19/24 14:09 Dose: 5 mg Diphenoxylate HCl/Atropine (Diphenoxylate/Atrop 2.5/0.025 Tablet) 1 tab PO DAILY PRN PRN Reason: loose stools Last Admin: 02/09/24 10:32 Dose: 1 tab Donepezil HCl (Donepezil Hcl 5 Mg Tablet) 5 mg PO BEDTIME [facility] Last Admin: 02/19/24 20:56 Dose: 5 mg Escitalopram Oxalate (Escitalopram Oxalate 10 Mg Tablet) 10 mg PO DAILY [facility] Last Admin: 02/20/24 08:23 Dose: 10 mg Levothyroxine Sodium (Levothyroxine Sodium 88 Mcg Tablet) 88 mcg PO DAILY@0600 [facility] Last Admin: 02/20/24 06:40 Dose: 88 mcg Loperamide HCl (Loperamide Hcl 2 Mg Capsule) 2 mg PO Q4H PRN PRN Reason: Loose Stool Lorazepam (Lorazepam 0.5 Mg Tablet) 0.5 mg PO DAILY PRN PRN Reason: Anxiety Last Admin: 01/29/24 09:27 Dose: 0.5 mg Magnesium Hydroxide (Milk Of Magnesia 30 Ml Oral.Susp) 30 ml PO DAILY PRN PRN Reason: Constipation Memantine (Memantine Hcl 5 Mg Tablet) 5 mg PO DAILY [facility] Last Admin: 02/20/24 08:23 Dose: 5 mg Metformin HCl (Metformin Hcl 500 Mg Tablet) 500 mg PO BEDTIME [facility] Last Admin: 02/19/24 20:56 Dose: 500 mg Pt Own (Cyclosporine ([Restasis] 1 Drop)) 1 drop EYE-BOTH BID [facility] Last Admin: 02/20/24 08:25 Dose: 1 drop Olanzapine (Olanzapine 2.5 Mg Tablet) 2.5 mg PO Q4H PRN PRN Reason: agitation/acute psychosis Simethicone (Simethicone 80 Mg Tab.Chew) 80 mg PO QIDWMHS PRN PRN Reason: bloating Last Admin: 02/20/24 08:23 Dose: 80 mg Sitagliptin Phosphate (Sitagliptin Phosphate 100 Mg Tablet) 100 mg PO DAILY [facility] Last Admin: 02/20/24 08:23 Dose: 100 mg Trazodone HCl (Trazodone Hcl 50 Mg Tablet) 50 mg PO BEDTIME MRX1 PRN PRN Reason: Insomnia Last Admin: 02/05/24 21:08 Dose: 50 mg Vitamin D (Cholecalciferol (Vitamin D3) 25 Mcg Tablet) 25 mcg PO DAILY [facility] Last Admin: 02/20/24 08:23 Dose: 25 mcg Zolpidem Tartrate (Zolpidem Tartrate 5 Mg Tablet) 5 mg PO BEDTIME [facility] Last Admin: 02/19/24 20:56 Dose: 5 mg Allergies Allergies Allergy/AdvReac Type Severity Reaction Status Date / Time codeine Allergy Unknown Verified 12/07/23 20:27 Assessment & Plan Assessment & Plan (1) Dementia with psychotic disturbance: Status: Acute Code(s): F03.92 - Unspecified dementia, unspecified severity, with psychotic disturbance Plan Mrs. Jin is a 83 year-old woman with hx of vascular dementia with delusions of having an affair and some paranoid delusions. Some insight that this may not be the case but pt very much believes and takes action based on delusion despite here reporting that it may not be happening. It is unclear report from [facility] as to suicidal ideation. no indication of imminent harm to self or others, but collateral information is pending from family. May consider antipsychotic. PLAN 02/12 continue tx. 02/13 continue tx. 02/14 wound consult ordered Reason for continued inpatient stay Substantial Risk for: inability to function Time Spent With Patient Time: Total time managing care of this patient today ____ minutes.
[2024-02-20 20:00] VITALS: BP 134/63; PULSE 72; RESP 16; TEMP 36.2; O2SAT 98
[2024-02-20] MEDS: metFORMIN HCl 500 MG TABLET PO (20:40)
[2024-02-20] MEDS: Donepezil HCl 5 MG TABLET PO (20:40)
[2024-02-20] MEDS: Zolpidem Tartrate 5 MG TABLET PO (20:40)
[2024-02-20] MEDS: Atorvastatin Calcium 10 MG TABLET PO (20:40)
[2024-02-20 20:51] LABS: Glucose, Whole Blood 167 mg/dL (60-115)
[2024-02-21] MEDS: Levothyroxine Sodium 88 MCG TABLET PO (06:37)
[2024-02-21 06:42] LABS: Glucose, Whole Blood 101 mg/dL (60-115)
[2024-02-21 08:43] VITALS: BP 144/66; PULSE 75; RESP 17; TEMP 36.4; O2SAT 98
[2024-02-21] MEDS: Escitalopram Oxalate 10 MG TABLET PO (08:44)
[2024-02-21] MEDS: Cholecalciferol (Vitamin D3) 25 MCG TABLET PO (08:44)
[2024-02-21] MEDS: Acetaminophen 325 MG TABLET 650 MG PO ×2 (08:44→20:49)
[2024-02-21] MEDS: allopurinoL 100 MG TABLET PO (08:44)
[2024-02-21] MEDS: SITagliptin Phosphate 100 MG TABLET PO (08:44)
[2024-02-21] MEDS: Memantine HCl 5 MG TABLET PO (08:44)
[2024-02-21] MEDS: amLODIPine Besylate 2.5 MG TABLET PO (08:44)
[2024-02-21] MEDS: Simethicone 80 MG TAB.CHEW PO ×2 (08:46→20:48)
[2024-02-21] MEDS: CYCLOSPORINE 1 EACH EYE-BOTH ×2 (08:47→20:50)
--- NOTE | 2024-02-21 16:35 | HO.WOUND ---
Wound Consult: Initial 83yr old?female admitted to [facility] on 12/08/23 - See progress notes and H&P for detailed history.? Wound consult placed for Right great toe seen previously for buttock and bilateral heel redness.? Patient agreeable to assessment. She reports she has not had her nails valerie in a long time - her nails were observed to be long and jagged. She reports the great toe nail was caught on her sock given the jagged nail and partially lifted the other day. Nail is observed to be jagged and longer than the toe itself. When lifted the nail bed is red and moist and clean with macerated edges. Although the patient is a diabetic her nails were trimmed given they were not thickened beyond the capabilities of the nail clippers provided. Nails trimmed without incident no cracking or wounds created. Patient encouraged to follow up with podiatry outpatient at time of d/c. Right great toe - post nail trimming Left Foot - post nail trimming Right Great Toe: Cleanse with ns, pat dry. Apply skin prep to the periwound. cover nail bed with durafiber AG and cover with bandaid or dry gauze and tape. Change every other day. Recommendations from previous assessment: 1. Turn and Reposition every 2 hours and as needed for patient comfort.? Use pillows or wedges to support off loading positions. 2. Off Load all bony prominences with use of pillows and heel boots if needed.? Apply Preventative foams where needed. ? 3. Monitor for incontinence and moisture control, use barrier creams when needed for prevention and treatment. Discontinue brief use when in bed. 4. Provide adequate and supplemental nutrition.? 5. Bilateral Heels - Apply preventative foams to heels change every 5-7 days and PRN. Elevate heels from surface of bed with pillows. 6. Buttock - Cleanse with PH Tony spray. Apply barrier cream to buttock and intergluteal area twice daily and after each episode of incontinence. Discontinue brief use while in bed. Re-consult wound care Nurse for wound deterioration or wound changes.
[2024-02-21 20:00] VITALS: BP 144/63; PULSE 79; RESP 17; TEMP 36.1; O2SAT 99
[2024-02-21] MEDS: Artificial Tears 15 ML DROPS 2 DROP EYE-BOTH (20:48)
[2024-02-21] MEDS: metFORMIN HCl 500 MG TABLET PO (20:49)
[2024-02-21] MEDS: Donepezil HCl 5 MG TABLET PO (20:49)
[2024-02-21] MEDS: Zolpidem Tartrate 5 MG TABLET PO (20:50)
[2024-02-21] MEDS: Atorvastatin Calcium 10 MG TABLET PO (20:50)
--- NOTE | 2024-02-21 21:33 | HO.PSYCHPN ---
Subjective Subjective Date of Service: 02/21/24 Reason For Visit: psychosis Interim History: Pt slept through the night. She is mostly in bed, reports she can't stay too long sitting in chair due to her back hurting, otherwise prefers to stay in bed. She is awaiting placement. She is not very interactive with peers, nor social. Review of Systems Review of Systems Constitutional : No Weight loss, No Fever, No Chills, No Night Sweats, No Fatigue, No Malaise ENT/Mouth : No Hearing loss, No Ear Pain, No Nasal Congestion, No Sinus Pain, No Hoarseness, No sore throat, No Rhinorrhea, No Swallowing Difficulty Eyes: No Eye Pain, No Swelling, No Redness, No Foreign Body, No Discharge, No Vision Changes Cardiovascular : No Chest Pain, No SOB, No Dyspnea on Exertion, No Orthopnea, No Edema, No Palpitations Respiratory : No Cough, No Sputum, No Wheezing, No Smoke Exposure, No Dyspnea Gastrointestinal : No Nausea, No Vomiting, No Diarrhea, No Constipation, No abdominal Pain, No Hematochezia, No Melena Genitourinary : no irregular bleeding, No Dysuria, No Urinary Frequency, No Hematuria, No Urinary Incontinence, No Urgency, No Flank Pain, No Urinary Flow Changes, No Hesitancy Musculoskeletal : No joint pain, No Myalgias, No Joint Swelling Skin : No Skin Lesions, No rash Neuro : No Weakness, No Numbness, No Paresthesias, No Loss of Consciousness, No Dizziness, No Headache Psych : No Anxiety/Panic, No Depression, No SI/HI/AH/VH, No Social Issues, Heme/Lymph: No Bruising, No Bleeding,No Lymphadenopathy Endocrine : No Polyuria, No Polydipsia, No Temperature Intolerance Yes all other systems are reviewed and are negative Constitutional: Reports fatigue, Reports malaise and Reports weakness Reports vertigo and Reports dizziness Cardiovascular: Reports lightheadedness Reports vertigo, Reports dizziness and Reports weakness Endocrine: Reports fatigue Mental Status Exam Mental Status Exam Narrative: Appearance: wearing casual clothing, siting in chair, no NAD Behavior: cooperative Psychomotor: no retardation or agitation noted Speech: clear, normal rate/rhythm/volume, spontaneous TP: mostly linear TC: feeling okay Mood: fine Affect: congruent, SI: denies HI: denies VH/AH: none Delusions: not reported Insight/judgment: poor x 2. memory/cog: alert, oriented x 3. ACL 3.4 Diagnostics Vital Signs (24Hr): Vital Signs - 24 hr 02/21/24 08:43 02/21/24 20:00 Temperature 97.5 F 97.0 F Pulse Rate 75 79 Respiratory Rate 17 17 Blood Pressure 144/66 H 144/63 H Pulse Oximetry 98 99 Oxygen Delivery Method Room Air Room Air BMI result Body Mass Index 31.4 Labs 01/06/24 07:28 02/17/24 07:20 Labs: Laboratory Results - last 48 hr 02/20/24 02/20/24 02/21/24 06:42 20:38 06:36 POC Glucose 112 167 H 101 Medications Medications Current Medications Acetaminophen (Acetaminophen 325 Mg Tablet) 650 mg PO Q6H PRN PRN Reason: Headache/Pain Mild Scale (1-3) Last Admin: 02/21/24 20:49 Dose: 650 mg Al Hydroxide/Mg Hydroxide (Magnesium Hydrox/Alum Hydrox 30 Ml Oral.Susp) 30 ml PO Q6H PRN PRN Reason: Heartburn/Nausea Allopurinol (Allopurinol 100 Mg Tablet) 100 mg PO DAILY [facility] Last Admin: 02/21/24 08:44 Dose: 100 mg Amlodipine Besylate (Amlodipine Besylate 2.5 Mg Tablet) 2.5 mg PO DAILY [facility]; Protocol Last Admin: 02/21/24 08:44 Dose: 2.5 mg Artificial Tears (Artificial Tears 15 Ml Drops) 2 drop EYE-BOTH Q4H PRN PRN Reason: Dry Eyes Last Admin: 02/21/24 20:48 Dose: 2 drop Atorvastatin Calcium (Atorvastatin Calcium 10 Mg Tablet) 10 mg PO BEDTIME [facility] Last Admin: 02/21/24 20:50 Dose: 10 mg Cyclobenzaprine HCl (Cyclobenzaprine Hcl 5 Mg Tablet) 5 mg PO TID PRN PRN Reason: back spasm Last Admin: 02/19/24 14:09 Dose: 5 mg Diphenoxylate HCl/Atropine (Diphenoxylate/Atrop 2.5/0.025 Tablet) 1 tab PO DAILY PRN PRN Reason: loose stools Last Admin: 02/09/24 10:32 Dose: 1 tab Donepezil HCl (Donepezil Hcl 5 Mg Tablet) 5 mg PO BEDTIME [facility] Last Admin: 02/21/24 20:49 Dose: 5 mg Escitalopram Oxalate (Escitalopram Oxalate 10 Mg Tablet) 10 mg PO DAILY [facility] Last Admin: 02/21/24 08:44 Dose: 10 mg Levothyroxine Sodium (Levothyroxine Sodium 88 Mcg Tablet) 88 mcg PO DAILY@0600 [facility] Last Admin: 02/21/24 06:37 Dose: 88 mcg Loperamide HCl (Loperamide Hcl 2 Mg Capsule) 2 mg PO Q4H PRN PRN Reason: Loose Stool Lorazepam (Lorazepam 0.5 Mg Tablet) 0.5 mg PO DAILY PRN PRN Reason: Anxiety Last Admin: 01/29/24 09:27 Dose: 0.5 mg Magnesium Hydroxide (Milk Of Magnesia 30 Ml Oral.Susp) 30 ml PO DAILY PRN PRN Reason: Constipation Memantine (Memantine Hcl 5 Mg Tablet) 5 mg PO DAILY [facility] Last Admin: 02/21/24 08:44 Dose: 5 mg Metformin HCl (Metformin Hcl 500 Mg Tablet) 500 mg PO BEDTIME [facility] Last Admin: 02/21/24 20:49 Dose: 500 mg Pt Own (Cyclosporine ([Restasis] 1 Drop)) 1 drop EYE-BOTH BID [facility] Last Admin: 02/21/24 20:50 Dose: 1 drop Olanzapine (Olanzapine 2.5 Mg Tablet) 2.5 mg PO Q4H PRN PRN Reason: agitation/acute psychosis Simethicone (Simethicone 80 Mg Tab.Chew) 80 mg PO QIDWMHS PRN PRN Reason: bloating Last Admin: 02/21/24 20:48 Dose: 80 mg Sitagliptin Phosphate (Sitagliptin Phosphate 100 Mg Tablet) 100 mg PO DAILY [facility] Last Admin: 02/21/24 08:44 Dose: 100 mg Trazodone HCl (Trazodone Hcl 50 Mg Tablet) 50 mg PO BEDTIME MRX1 PRN PRN Reason: Insomnia Last Admin: 02/05/24 21:08 Dose: 50 mg Vitamin D (Cholecalciferol (Vitamin D3) 25 Mcg Tablet) 25 mcg PO DAILY [facility] Last Admin: 02/21/24 08:44 Dose: 25 mcg Zolpidem Tartrate (Zolpidem Tartrate 5 Mg Tablet) 5 mg PO BEDTIME [facility] Last Admin: 02/21/24 20:50 Dose: 5 mg Allergies Allergies Allergy/AdvReac Type Severity Reaction Status Date / Time codeine Allergy Unknown Verified 12/07/23 20:27 Assessment & Plan Assessment & Plan (1) Dementia with psychotic disturbance: Status: Acute Code(s): F03.92 - Unspecified dementia, unspecified severity, with psychotic disturbance Plan Mrs. Jin is a 83 year-old woman with hx of vascular dementia with delusions of having an affair and some paranoid delusions. Some insight that this may not be the case but pt very much believes and takes action based on delusion despite here reporting that it may not be happening. It is unclear report from [facility] as to suicidal ideation. no indication of imminent harm to self or others, but collateral information is pending from family. May consider antipsychotic. PLAN 02/12 continue tx. 02/13 continue tx. 02/14 wound consult ordered Reason for continued inpatient stay Substantial Risk for: inability to function Time Spent With Patient Time: Total time managing care of this patient today ____ minutes.
[2024-02-22] MEDS: Levothyroxine Sodium 88 MCG TABLET PO (05:04)
[2024-02-22 06:42] LABS: Glucose, Whole Blood 114 mg/dL (60-115)
[2024-02-22 08:59] VITALS: BP 127/60; PULSE 71; RESP 16; TEMP 36.8; O2SAT 98
[2024-02-22] MEDS: CYCLOSPORINE 1 EACH EYE-BOTH ×2 (09:08→20:29)
[2024-02-22] MEDS: amLODIPine Besylate 2.5 MG TABLET PO (09:09)
[2024-02-22] MEDS: Escitalopram Oxalate 10 MG TABLET PO (09:09)
[2024-02-22] MEDS: Memantine HCl 5 MG TABLET PO (09:09)
[2024-02-22] MEDS: SITagliptin Phosphate 100 MG TABLET PO (09:09)
[2024-02-22] MEDS: allopurinoL 100 MG TABLET PO (09:09)
[2024-02-22] MEDS: Cholecalciferol (Vitamin D3) 25 MCG TABLET PO (09:09)
[2024-02-22] MEDS: Simethicone 80 MG TAB.CHEW PO ×2 (09:33→20:30)
--- NOTE | 2024-02-22 14:23 | HO.PSYCHPN ---
Subjective Subjective Date of Service: 02/22/24 Reason For Visit: psychosis Subjective Notes: Conditional Voluntary Interim History: The nursing staff reported the patient had been compliant with treatment, no changes in her mental status. On interview the patient denies new symptoms, waiting for placement. Mental Status Exam Mental Status Exam Patient Appearance: Well Grooomed and Appropriate Patient Orientation: Person and Situation Level of Consciousness: Awake and Appropriate Patient Behavior: Guarded and Passive Mood Description: Withdrawn Affect Description: Constricted Patient Cognition Impaired: Yes Ability to Follow Directions: Good Speech Pattern: Clear Hallucinations: None Delusions: Not Present Thought Process: Distracted and Slowed Thinking Thought Content: positive for [place] and positive for Poverty of Content Judgement: Fair Diagnostics Vital Signs (24Hr): Vital Signs - 24 hr 02/21/24 20:00 02/22/24 08:59 Temperature 97.0 F 98.2 F Pulse Rate 79 71 Respiratory Rate 17 16 Blood Pressure 144/63 H 127/60 Pulse Oximetry 99 98 Oxygen Delivery Method Room Air Room Air BMI result Body Mass Index 31.4 Labs 01/06/24 07:28 02/17/24 07:20 Labs: Laboratory Results - last 48 hr 02/20/24 02/21/24 02/22/24 20:38 06:36 05:06 POC Glucose 167 H 101 114 Medications Medications Current Medications Acetaminophen (Acetaminophen 325 Mg Tablet) 650 mg PO Q6H PRN PRN Reason: Headache/Pain Mild Scale (1-3) Last Admin: 02/21/24 20:49 Dose: 650 mg Al Hydroxide/Mg Hydroxide (Magnesium Hydrox/Alum Hydrox 30 Ml Oral.Susp) 30 ml PO Q6H PRN PRN Reason: Heartburn/Nausea Allopurinol (Allopurinol 100 Mg Tablet) 100 mg PO DAILY [facility] Last Admin: 02/22/24 09:09 Dose: 100 mg Amlodipine Besylate (Amlodipine Besylate 2.5 Mg Tablet) 2.5 mg PO DAILY [facility]; Protocol Last Admin: 02/22/24 09:09 Dose: 2.5 mg Artificial Tears (Artificial Tears 15 Ml Drops) 2 drop EYE-BOTH Q4H PRN PRN Reason: Dry Eyes Last Admin: 02/21/24 20:48 Dose: 2 drop Atorvastatin Calcium (Atorvastatin Calcium 10 Mg Tablet) 10 mg PO BEDTIME [facility] Last Admin: 02/21/24 20:50 Dose: 10 mg Cyclobenzaprine HCl (Cyclobenzaprine Hcl 5 Mg Tablet) 5 mg PO TID PRN PRN Reason: back spasm Last Admin: 02/19/24 14:09 Dose: 5 mg Diphenoxylate HCl/Atropine (Diphenoxylate/Atrop 2.5/0.025 Tablet) 1 tab PO DAILY PRN PRN Reason: loose stools Last Admin: 02/09/24 10:32 Dose: 1 tab Donepezil HCl (Donepezil Hcl 5 Mg Tablet) 5 mg PO BEDTIME [facility] Last Admin: 02/21/24 20:49 Dose: 5 mg Escitalopram Oxalate (Escitalopram Oxalate 10 Mg Tablet) 10 mg PO DAILY [facility] Last Admin: 02/22/24 09:09 Dose: 10 mg Levothyroxine Sodium (Levothyroxine Sodium 88 Mcg Tablet) 88 mcg PO DAILY@0600 [facility] Last Admin: 02/22/24 05:04 Dose: 88 mcg Loperamide HCl (Loperamide Hcl 2 Mg Capsule) 2 mg PO Q4H PRN PRN Reason: Loose Stool Lorazepam (Lorazepam 0.5 Mg Tablet) 0.5 mg PO DAILY PRN PRN Reason: Anxiety Last Admin: 01/29/24 09:27 Dose: 0.5 mg Magnesium Hydroxide (Milk Of Magnesia 30 Ml Oral.Susp) 30 ml PO DAILY PRN PRN Reason: Constipation Memantine (Memantine Hcl 5 Mg Tablet) 5 mg PO DAILY [facility] Last Admin: 02/22/24 09:09 Dose: 5 mg Metformin HCl (Metformin Hcl 500 Mg Tablet) 500 mg PO BEDTIME [facility] Last Admin: 02/21/24 20:49 Dose: 500 mg Pt Own (Cyclosporine ([Restasis] 1 Drop)) 1 drop EYE-BOTH BID [facility] Last Admin: 02/22/24 09:08 Dose: 1 drop Olanzapine (Olanzapine 2.5 Mg Tablet) 2.5 mg PO Q4H PRN PRN Reason: agitation/acute psychosis Simethicone (Simethicone 80 Mg Tab.Chew) 80 mg PO QIDWMHS PRN PRN Reason: bloating Last Admin: 02/22/24 09:33 Dose: 80 mg Sitagliptin Phosphate (Sitagliptin Phosphate 100 Mg Tablet) 100 mg PO DAILY [facility] Last Admin: 02/22/24 09:09 Dose: 100 mg Trazodone HCl (Trazodone Hcl 50 Mg Tablet) 50 mg PO BEDTIME [facility] PRN PRN Reason: Insomnia Last Admin: 02/05/24 21:08 Dose: 50 mg Vitamin D (Cholecalciferol (Vitamin D3) 25 Mcg Tablet) 25 mcg PO DAILY [facility] Last Admin: 02/22/24 09:09 Dose: 25 mcg Zolpidem Tartrate (Zolpidem Tartrate 5 Mg Tablet) 5 mg PO BEDTIME [facility] Last Admin: 02/21/24 20:50 Dose: 5 mg Allergies Allergies Allergy/AdvReac Type Severity Reaction Status Date / Time codeine Allergy Unknown Verified 12/07/23 20:27 Assessment & Plan Assessment & Plan (1) Dementia with psychotic disturbance: Status: Acute Code(s): F03.92 - Unspecified dementia, unspecified severity, with psychotic disturbance Plan Mrs. Jin is a 83 year-old woman with hx of vascular dementia with delusions of having an affair and some paranoid delusions. Some insight that this may not be the case but pt very much believes and takes action based on delusion despite here reporting that it may not be happening. It is unclear report from [facility] as to suicidal ideation. no indication of imminent harm to self or others, but collateral information is pending from family. May consider antipsychotic. PLAN 1. Continue with same treatment. 2. Waiting for placement. Reason for continued inpatient stay Substantial Risk for: inability to function, rapid decompensation and med/psych decompensation Time Spent With Patient Time: Total time managing care of this patient today _20___ minutes.
[2024-02-22] MEDS: Donepezil HCl 5 MG TABLET PO (20:30)
[2024-02-22] MEDS: Acetaminophen 325 MG TABLET 650 MG PO (20:30)
[2024-02-22] MEDS: Atorvastatin Calcium 10 MG TABLET PO (20:30)
[2024-02-22] MEDS: Zolpidem Tartrate 5 MG TABLET PO (20:30)
[2024-02-22] MEDS: metFORMIN HCl 500 MG TABLET PO (20:30)
[2024-02-22 20:34] VITALS: BP 127/60; PULSE 77; RESP 16; TEMP 36.4; O2SAT 97
[2024-02-23] MEDS: Levothyroxine Sodium 88 MCG TABLET PO (05:32)
[2024-02-23 05:39] LABS: Glucose, Whole Blood 104 mg/dL (60-115)
[2024-02-23 08:35] VITALS: BP 166/72; PULSE 76; RESP 16; TEMP 36.7; O2SAT 96
[2024-02-23] MEDS: SITagliptin Phosphate 100 MG TABLET PO (08:36)
[2024-02-23] MEDS: CYCLOSPORINE 1 EACH EYE-BOTH ×2 (08:36→20:30)
[2024-02-23] MEDS: amLODIPine Besylate 2.5 MG TABLET PO (08:37)
[2024-02-23] MEDS: allopurinoL 100 MG TABLET PO (08:37)
[2024-02-23] MEDS: Cholecalciferol (Vitamin D3) 25 MCG TABLET PO (08:37)
[2024-02-23] MEDS: Memantine HCl 5 MG TABLET PO (08:37)
[2024-02-23] MEDS: Escitalopram Oxalate 10 MG TABLET PO (08:37)
[2024-02-23] MEDS: Acetaminophen 325 MG TABLET 650 MG PO ×2 (08:41→20:30)
--- NOTE | 2024-02-23 11:18 | P.PNPSI_ITS ---
Subjective Subjective Date of Service: 02/23/24 Reason For Visit: psychosis Subjective Notes: Conditional Voluntary Interim History: The nursing staff reported no changes in her mental status. On interview the patient denies new symptoms, waiting for placement Mental Status Exam Mental Status Exam Patient Appearance: Well Grooomed Patient Orientation: Person and Situation Level of Consciousness: Awake and Appropriate Patient Behavior: Guarded and Passive Mood Description: Withdrawn Affect Description: Constricted Patient Cognition Impaired: Yes Ability to Follow Directions: Good Speech Pattern: Clear Hallucinations: None Delusions: Not Present Thought Process: Distracted and Slowed Thinking Thought Content: positive for [place] and positive for Poverty of Content Judgement: Poor Diagnostics Vital Signs (24Hr): Vital Signs - 24 hr 02/22/24 20:34 02/23/24 08:35 Temperature 97.5 F 98.1 F Pulse Rate 77 76 Respiratory Rate 16 16 Blood Pressure 127/60 166/72 H Pulse Oximetry 97 96 Oxygen Delivery Method Room Air Room Air BMI result Body Mass Index 31.4 Labs 01/06/24 07:28 02/17/24 07:20 Labs: Laboratory Results - last 48 hr 02/22/24 02/23/24 05:06 05:34 POC Glucose 114 104 Medications Medications Current Medications Acetaminophen (Acetaminophen 325 Mg Tablet) 650 mg PO Q6H PRN PRN Reason: Headache/Pain Mild Scale (1-3) Last Admin: 02/23/24 08:41 Dose: 650 mg Al Hydroxide/Mg Hydroxide (Magnesium Hydrox/Alum Hydrox 30 Ml Oral.Susp) 30 ml PO Q6H PRN PRN Reason: Heartburn/Nausea Allopurinol (Allopurinol 100 Mg Tablet) 100 mg PO DAILY [facility] Last Admin: 02/23/24 08:37 Dose: 100 mg Amlodipine Besylate (Amlodipine Besylate 2.5 Mg Tablet) 2.5 mg PO DAILY [facility]; Protocol Last Admin: 02/23/24 08:37 Dose: 2.5 mg Artificial Tears (Artificial Tears 15 Ml Drops) 2 drop EYE-BOTH Q4H PRN PRN Reason: Dry Eyes Last Admin: 02/21/24 20:48 Dose: 2 drop Atorvastatin Calcium (Atorvastatin Calcium 10 Mg Tablet) 10 mg PO BEDTIME [facility] Last Admin: 02/22/24 20:30 Dose: 10 mg Cyclobenzaprine HCl (Cyclobenzaprine Hcl 5 Mg Tablet) 5 mg PO TID PRN PRN Reason: back spasm Last Admin: 02/19/24 14:09 Dose: 5 mg Diphenoxylate HCl/Atropine (Diphenoxylate/Atrop 2.5/0.025 Tablet) 1 tab PO DAILY PRN PRN Reason: loose stools Last Admin: 02/09/24 10:32 Dose: 1 tab Donepezil HCl (Donepezil Hcl 5 Mg Tablet) 5 mg PO BEDTIME [facility] Last Admin: 02/22/24 20:30 Dose: 5 mg Escitalopram Oxalate (Escitalopram Oxalate 10 Mg Tablet) 10 mg PO DAILY [facility] Last Admin: 02/23/24 08:37 Dose: 10 mg Levothyroxine Sodium (Levothyroxine Sodium 88 Mcg Tablet) 88 mcg PO DAILY@0600 [facility] Last Admin: 02/23/24 05:32 Dose: 88 mcg Loperamide HCl (Loperamide Hcl 2 Mg Capsule) 2 mg PO Q4H PRN PRN Reason: Loose Stool Lorazepam (Lorazepam 0.5 Mg Tablet) 0.5 mg PO DAILY PRN PRN Reason: Anxiety Last Admin: 01/29/24 09:27 Dose: 0.5 mg Magnesium Hydroxide (Milk Of Magnesia 30 Ml Oral.Susp) 30 ml PO DAILY PRN PRN Reason: Constipation Memantine (Memantine Hcl 5 Mg Tablet) 5 mg PO DAILY [facility] Last Admin: 02/23/24 08:37 Dose: 5 mg Metformin HCl (Metformin Hcl 500 Mg Tablet) 500 mg PO BEDTIME [facility] Last Admin: 02/22/24 20:30 Dose: 500 mg Pt Own (Cyclosporine ([Restasis] 1 Drop)) 1 drop EYE-BOTH BID [facility] Last Admin: 02/23/24 08:36 Dose: 1 drop Olanzapine (Olanzapine 2.5 Mg Tablet) 2.5 mg PO Q4H PRN PRN Reason: agitation/acute psychosis Simethicone (Simethicone 80 Mg Tab.Chew) 80 mg PO QIDWMHS PRN PRN Reason: bloating Last Admin: 02/22/24 20:30 Dose: 80 mg Sitagliptin Phosphate (Sitagliptin Phosphate 100 Mg Tablet) 100 mg PO DAILY [facility] Last Admin: 02/23/24 08:36 Dose: 100 mg Trazodone HCl (Trazodone Hcl 50 Mg Tablet) 50 mg PO BEDTIME MRX1 PRN PRN Reason: Insomnia Last Admin: 02/05/24 21:08 Dose: 50 mg Vitamin D (Cholecalciferol (Vitamin D3) 25 Mcg Tablet) 25 mcg PO DAILY [facility] Last Admin: 02/23/24 08:37 Dose: 25 mcg Zolpidem Tartrate (Zolpidem Tartrate 5 Mg Tablet) 5 mg PO BEDTIME [facility] Last Admin: 02/22/24 20:30 Dose: 5 mg Allergies Allergies Allergy/AdvReac Type Severity Reaction Status Date / Time codeine Allergy Unknown Verified 12/07/23 20:27 Assessment & Plan Assessment & Plan (1) Dementia with psychotic disturbance: Status: Acute Code(s): F03.92 - Unspecified dementia, unspecified severity, with psychotic disturbance Plan Mrs. Jin is a 83 year-old woman with hx of vascular dementia with delusions of having an affair and some paranoid delusions. Some insight that this may not be the case but pt very much believes and takes action based on delusion despite here reporting that it may not be happening. It is unclear report from [facility] as to suicidal ideation. no indication of imminent harm to self or others, but collateral information is pending from family. May consider antipsychotic. PLAN 1. Continue with same treatment. 2. Waiting for placement. Reason for continued inpatient stay Substantial Risk for: inability to function, rapid decompensation and med/psych decompensation Time Spent With Patient Time: Total time managing care of this patient today __20__ minutes.
[2024-02-23 20:00] VITALS: BP 134/63; PULSE 66; RESP 18; TEMP 36.3; O2SAT 99
[2024-02-23] MEDS: Simethicone 80 MG TAB.CHEW PO (20:29)
[2024-02-23] MEDS: metFORMIN HCl 500 MG TABLET PO (20:29)
[2024-02-23] MEDS: Donepezil HCl 5 MG TABLET PO (20:29)
[2024-02-23] MEDS: Atorvastatin Calcium 10 MG TABLET PO (20:30)
[2024-02-23] MEDS: Zolpidem Tartrate 5 MG TABLET PO (20:30)
[2024-02-24] MEDS: Levothyroxine Sodium 88 MCG TABLET PO (06:35)
[2024-02-24 06:59] LABS: Glucose, Whole Blood 116 mg/dL (60-115)
[2024-02-24 07:50] LABS: Creatinine Clr Calc Pharmacy 42.7; Estimated Glomerular Filt Rate 49
--- NOTE | 2024-02-24 08:07 | P.PNPSI_ITS ---
Subjective Subjective Date of Service: 02/24/24 Reason For Visit: psychosis Subjective Notes: Conditional Voluntary Healthcare Proxy: Yes Interim History: The nursing staff reported no changes in her mental status. Awaiting for placement. 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 Denied depression, SI, HI, psychosis. Sleep ok. No med concerns. Eager for discharge but also reports [facility] is a stumbling block. Medication Compliance: Yes Side effects from medications: No Attending Groups: Yes Review of Systems Acute medical concerns: No Review of Systems Review of Systems unremarkable Constitutional: Reports fatigue, Reports malaise and Reports weakness Reports vertigo and Reports dizziness Cardiovascular: Reports lightheadedness Reports vertigo, Reports dizziness and Reports weakness Endocrine: Reports fatigue Mental Status Exam Mental Status Exam Patient Appearance: Well Grooomed Patient Orientation: Person and Situation Level of Consciousness: Awake and Appropriate Patient Behavior: Guarded and Passive Mood Description: Withdrawn Affect Description: Constricted Patient Cognition Impaired: Yes Ability to Follow Directions: Good Speech Pattern: Clear Memory Description: Intact Judgement: Fair Diagnostics Vital Signs (24Hr): Vital Signs - 24 hr 02/23/24 08:35 02/23/24 20:00 Temperature 98.1 F 97.3 F Pulse Rate 76 66 Respiratory Rate 16 18 Blood Pressure 166/72 H 134/63 Pulse Oximetry 96 99 Oxygen Delivery Method Room Air Room Air BMI result Body Mass Index 31.4 Labs 01/06/24 07:28 02/24/24 07:05 Labs: Laboratory Results - last 48 hr 02/23/24 02/24/24 02/24/24 05:34 06:35 07:05 Creatinine 1.06 Estim Creat Clear Calc 42.7 Estimated GFR 49 POC Glucose 104 116 H Medications Medications Current Medications Acetaminophen (Acetaminophen 325 Mg Tablet) 650 mg PO Q6H PRN PRN Reason: Headache/Pain Mild Scale (1-3) Last Admin: 02/23/24 20:30 Dose: 650 mg Al Hydroxide/Mg Hydroxide (Magnesium Hydrox/Alum Hydrox 30 Ml Oral.Susp) 30 ml PO Q6H PRN PRN Reason: Heartburn/Nausea Allopurinol (Allopurinol 100 Mg Tablet) 100 mg PO DAILY [facility] Last Admin: 02/23/24 08:37 Dose: 100 mg Amlodipine Besylate (Amlodipine Besylate 2.5 Mg Tablet) 2.5 mg PO DAILY [facility]; Protocol Last Admin: 02/23/24 08:37 Dose: 2.5 mg Artificial Tears (Artificial Tears 15 Ml Drops) 2 drop EYE-BOTH Q4H PRN PRN Reason: Dry Eyes Last Admin: 02/21/24 20:48 Dose: 2 drop Atorvastatin Calcium (Atorvastatin Calcium 10 Mg Tablet) 10 mg PO BEDTIME [facility] Last Admin: 02/23/24 20:30 Dose: 10 mg Cyclobenzaprine HCl (Cyclobenzaprine Hcl 5 Mg Tablet) 5 mg PO TID PRN PRN Reason: back spasm Last Admin: 02/19/24 14:09 Dose: 5 mg Diphenoxylate HCl/Atropine (Diphenoxylate/Atrop 2.5/0.025 Tablet) 1 tab PO DAILY PRN PRN Reason: loose stools Last Admin: 02/09/24 10:32 Dose: 1 tab Donepezil HCl (Donepezil Hcl 5 Mg Tablet) 5 mg PO BEDTIME [facility] Last Admin: 02/23/24 20:29 Dose: 5 mg Escitalopram Oxalate (Escitalopram Oxalate 10 Mg Tablet) 10 mg PO DAILY [facility] Last Admin: 02/23/24 08:37 Dose: 10 mg Levothyroxine Sodium (Levothyroxine Sodium 88 Mcg Tablet) 88 mcg PO DAILY@0600 [facility] Last Admin: 02/24/24 06:35 Dose: 88 mcg Loperamide HCl (Loperamide Hcl 2 Mg Capsule) 2 mg PO Q4H PRN PRN Reason: Loose Stool Lorazepam (Lorazepam 0.5 Mg Tablet) 0.5 mg PO DAILY PRN PRN Reason: Anxiety Last Admin: 01/29/24 09:27 Dose: 0.5 mg Magnesium Hydroxide (Milk Of Magnesia 30 Ml Oral.Susp) 30 ml PO DAILY PRN PRN Reason: Constipation Memantine (Memantine Hcl 5 Mg Tablet) 5 mg PO DAILY [facility] Last Admin: 02/23/24 08:37 Dose: 5 mg Metformin HCl (Metformin Hcl 500 Mg Tablet) 500 mg PO BEDTIME [facility] Last Admin: 02/23/24 20:29 Dose: 500 mg Pt Own (Cyclosporine ([Restasis] 1 Drop)) 1 drop EYE-BOTH BID [facility] Last Admin: 02/23/24 20:30 Dose: 1 drop Olanzapine (Olanzapine 2.5 Mg Tablet) 2.5 mg PO Q4H PRN PRN Reason: agitation/acute psychosis Simethicone (Simethicone 80 Mg Tab.Chew) 80 mg PO QIDWMHS PRN PRN Reason: bloating Last Admin: 02/23/24 20:29 Dose: 80 mg Sitagliptin Phosphate (Sitagliptin Phosphate 100 Mg Tablet) 100 mg PO DAILY [facility] Last Admin: 02/23/24 08:36 Dose: 100 mg Trazodone HCl (Trazodone Hcl 50 Mg Tablet) 50 mg PO BEDTIME MRX1 PRN PRN Reason: Insomnia Last Admin: 02/05/24 21:08 Dose: 50 mg Vitamin D (Cholecalciferol (Vitamin D3) 25 Mcg Tablet) 25 mcg PO DAILY [facility] Last Admin: 02/23/24 08:37 Dose: 25 mcg Zolpidem Tartrate (Zolpidem Tartrate 5 Mg Tablet) 5 mg PO BEDTIME [facility] Last Admin: 02/23/24 20:30 Dose: 5 mg Allergies Allergies Allergy/AdvReac Type Severity Reaction Status Date / Time codeine Allergy Unknown Verified 12/07/23 20:27 Assessment & Plan Assessment & Plan (1) Dementia with psychotic disturbance: Status: Acute Code(s): F03.92 - Unspecified dementia, unspecified severity, with psychotic disturbance Plan Mrs. Jin is a 83 year-old woman with hx of vascular dementia with delusions of having an affair and some paranoid delusions. Some insight that this may not be the case but pt very much believes and takes action based on delusion despite here reporting that it may not be happening. It is unclear report from [facility] as to suicidal ideation. no indication of imminent harm to self or others, but collateral information is pending from family. May consider antipsychotic. PLAN 1. Continue with same treatment. 2. Waiting for placement. 02/24/24: no changes Reason for continued inpatient stay Substantial Risk for: rapid decompensation Time Spent With Patient Time: Total time managing care of this patient today ____ minutes.
[2024-02-24 08:59] VITALS: BP 132/59; PULSE 72; RESP 15; TEMP 36.7; O2SAT 99
[2024-02-24] MEDS: CYCLOSPORINE 1 EACH EYE-BOTH ×2 (09:00→20:19)
[2024-02-24] MEDS: allopurinoL 100 MG TABLET PO (09:01)
[2024-02-24] MEDS: SITagliptin Phosphate 100 MG TABLET PO (09:01)
[2024-02-24] MEDS: Memantine HCl 5 MG TABLET PO (09:01)
[2024-02-24] MEDS: amLODIPine Besylate 2.5 MG TABLET PO (09:02)
[2024-02-24] MEDS: Cholecalciferol (Vitamin D3) 25 MCG TABLET PO (09:02)
[2024-02-24] MEDS: Escitalopram Oxalate 10 MG TABLET PO (09:02)
[2024-02-24] MEDS: Acetaminophen 325 MG TABLET 650 MG PO ×2 (11:26→20:18)
[2024-02-24 20:00] VITALS: BP 107/73; PULSE 64; RESP 18; TEMP 36.2; O2SAT 95
[2024-02-24] MEDS: Simethicone 80 MG TAB.CHEW PO (20:17)
[2024-02-24] MEDS: Atorvastatin Calcium 10 MG TABLET PO (20:19)
[2024-02-24] MEDS: Donepezil HCl 5 MG TABLET PO (20:19)
[2024-02-24] MEDS: metFORMIN HCl 500 MG TABLET PO (20:19)
[2024-02-24] MEDS: Zolpidem Tartrate 5 MG TABLET PO (20:19)
[2024-02-25] MEDS: Levothyroxine Sodium 88 MCG TABLET PO (06:30)
[2024-02-25 06:43] LABS: Glucose, Whole Blood 113 mg/dL (60-115)
[2024-02-25 10:15] VITALS: BP 122/90; PULSE 76; RESP 18; TEMP 37.1; O2SAT 99
--- NOTE | 2024-02-25 10:21 | P.PNPSI_ITS ---
Subjective Subjective Date of Service: 02/25/24 Reason For Visit: psychosis Interim History: The nursing staff reported no changes in her mental status. Awaiting for placement. Pleasant. Denied depression, SI, HI, psychosis. Sleep ok. No med concerns. Medication Compliance: Yes Side effects from medications: No Attending Groups: Yes Review of Systems Acute medical concerns: No Review of Systems Review of Systems unremarkable Yes all other systems are reviewed and are negative Constitutional: Reports fatigue, Reports malaise and Reports weakness Reports vertigo and Reports dizziness Cardiovascular: Reports lightheadedness Reports vertigo, Reports dizziness and Reports weakness Endocrine: Reports fatigue Mental Status Exam Mental Status Exam Patient Appearance: Well Grooomed Patient Orientation: Person and Situation Level of Consciousness: Awake and Appropriate Patient Behavior: Guarded and Passive Mood Description: Withdrawn Affect Description: Constricted Patient Cognition Impaired: Yes Ability to Follow Directions: Good Speech Pattern: Clear Memory Description: Intact Diagnostics Vital Signs (24Hr): Vital Signs - 24 hr 02/24/24 20:00 Temperature 97.2 F Pulse Rate 64 Respiratory Rate 18 Blood Pressure 107/73 Pulse Oximetry 95 Oxygen Delivery Method Room Air BMI result Body Mass Index 31.4 Labs 01/06/24 07:28 02/24/24 07:05 Labs: Laboratory Results - last 48 hr 02/24/24 02/24/24 02/25/24 06:35 07:05 06:29 Creatinine 1.06 Estim Creat Clear Calc 42.7 Estimated GFR 49 POC Glucose 116 H 113 Medications Medications Current Medications Acetaminophen (Acetaminophen 325 Mg Tablet) 650 mg PO Q6H PRN PRN Reason: Headache/Pain Mild Scale (1-3) Last Admin: 02/24/24 20:18 Dose: 650 mg Al Hydroxide/Mg Hydroxide (Magnesium Hydrox/Alum Hydrox 30 Ml Oral.Susp) 30 ml PO Q6H PRN PRN Reason: Heartburn/Nausea Allopurinol (Allopurinol 100 Mg Tablet) 100 mg PO DAILY [facility] Last Admin: 02/24/24 09:01 Dose: 100 mg Amlodipine Besylate (Amlodipine Besylate 2.5 Mg Tablet) 2.5 mg PO DAILY [facility]; Protocol Last Admin: 02/24/24 09:02 Dose: 2.5 mg Artificial Tears (Artificial Tears 15 Ml Drops) 2 drop EYE-BOTH Q4H PRN PRN Reason: Dry Eyes Last Admin: 02/21/24 20:48 Dose: 2 drop Atorvastatin Calcium (Atorvastatin Calcium 10 Mg Tablet) 10 mg PO BEDTIME [facility] Last Admin: 02/24/24 20:19 Dose: 10 mg Cyclobenzaprine HCl (Cyclobenzaprine Hcl 5 Mg Tablet) 5 mg PO TID PRN PRN Reason: back spasm Last Admin: 02/19/24 14:09 Dose: 5 mg Diphenoxylate HCl/Atropine (Diphenoxylate/Atrop 2.5/0.025 Tablet) 1 tab PO DAILY PRN PRN Reason: loose stools Last Admin: 02/09/24 10:32 Dose: 1 tab Donepezil HCl (Donepezil Hcl 5 Mg Tablet) 5 mg PO BEDTIME [facility] Last Admin: 02/24/24 20:19 Dose: 5 mg Escitalopram Oxalate (Escitalopram Oxalate 10 Mg Tablet) 10 mg PO DAILY [facility] Last Admin: 02/24/24 09:02 Dose: 10 mg Levothyroxine Sodium (Levothyroxine Sodium 88 Mcg Tablet) 88 mcg PO DAILY@0600 [facility] Last Admin: 02/25/24 06:30 Dose: 88 mcg Loperamide HCl (Loperamide Hcl 2 Mg Capsule) 2 mg PO Q4H PRN PRN Reason: Loose Stool Lorazepam (Lorazepam 0.5 Mg Tablet) 0.5 mg PO DAILY PRN PRN Reason: Anxiety Last Admin: 01/29/24 09:27 Dose: 0.5 mg Magnesium Hydroxide (Milk Of Magnesia 30 Ml Oral.Susp) 30 ml PO DAILY PRN PRN Reason: Constipation Memantine (Memantine Hcl 5 Mg Tablet) 5 mg PO DAILY [facility] Last Admin: 02/24/24 09:01 Dose: 5 mg Metformin HCl (Metformin Hcl 500 Mg Tablet) 500 mg PO BEDTIME [facility] Last Admin: 02/24/24 20:19 Dose: 500 mg Pt Own (Cyclosporine ([Restasis] 1 Drop)) 1 drop EYE-BOTH BID [facility] Last Admin: 02/24/24 20:19 Dose: 1 drop Olanzapine (Olanzapine 2.5 Mg Tablet) 2.5 mg PO Q4H PRN PRN Reason: agitation/acute psychosis Simethicone (Simethicone 80 Mg Tab.Chew) 80 mg PO QIDWMHS PRN PRN Reason: bloating Last Admin: 02/24/24 20:17 Dose: 80 mg Sitagliptin Phosphate (Sitagliptin Phosphate 100 Mg Tablet) 100 mg PO DAILY [facility] Last Admin: 02/24/24 09:01 Dose: 100 mg Trazodone HCl (Trazodone Hcl 50 Mg Tablet) 50 mg PO BEDTIME MRX1 PRN PRN Reason: Insomnia Last Admin: 02/05/24 21:08 Dose: 50 mg Vitamin D (Cholecalciferol (Vitamin D3) 25 Mcg Tablet) 25 mcg PO DAILY [facility] Last Admin: 02/24/24 09:02 Dose: 25 mcg Zolpidem Tartrate (Zolpidem Tartrate 5 Mg Tablet) 5 mg PO BEDTIME [facility] Last Admin: 02/24/24 20:19 Dose: 5 mg Allergies Allergies Allergy/AdvReac Type Severity Reaction Status Date / Time codeine Allergy Unknown Verified 12/07/23 20:27 Assessment & Plan Assessment & Plan (1) Dementia with psychotic disturbance: Status: Acute Code(s): F03.92 - Unspecified dementia, unspecified severity, with psychotic disturbance Plan Mrs. Jin is a 83 year-old woman with hx of vascular dementia with delusions of having an affair and some paranoid delusions. Some insight that this may not be the case but pt very much believes and takes action based on delusion despite here reporting that it may not be happening. It is unclear report from [facility] as to suicidal ideation. no indication of imminent harm to self or others, but collateral information is pending from family. May consider antipsychotic. PLAN 1. Continue with same treatment. 2. Waiting for placement. 02/25/24: no changes Reason for continued inpatient stay Substantial Risk for: inability to function and rapid decompensation Time Spent With Patient Time: Total time managing care of this patient today ____ minutes.
[2024-02-25] MEDS: Simethicone 80 MG TAB.CHEW PO ×2 (10:56→19:39)
[2024-02-25] MEDS: allopurinoL 100 MG TABLET PO (10:57)
[2024-02-25] MEDS: Escitalopram Oxalate 10 MG TABLET PO (10:57)
[2024-02-25] MEDS: SITagliptin Phosphate 100 MG TABLET PO (10:57)
[2024-02-25] MEDS: Acetaminophen 325 MG TABLET 650 MG PO ×2 (10:57→19:39)
[2024-02-25] MEDS: amLODIPine Besylate 2.5 MG TABLET PO (10:57)
[2024-02-25] MEDS: Memantine HCl 5 MG TABLET PO (10:57)
[2024-02-25] MEDS: Cholecalciferol (Vitamin D3) 25 MCG TABLET PO (10:57)
[2024-02-25] MEDS: CYCLOSPORINE 1 EACH EYE-BOTH ×2 (11:03→19:38)
[2024-02-25 19:37] VITALS: BP 145/67; PULSE 71; RESP 16; TEMP 36.8; O2SAT 94
[2024-02-25] MEDS: metFORMIN HCl 500 MG TABLET PO (19:39)
[2024-02-25] MEDS: Atorvastatin Calcium 10 MG TABLET PO (19:39)
[2024-02-25] MEDS: Donepezil HCl 5 MG TABLET PO (19:39)
[2024-02-25] MEDS: Zolpidem Tartrate 5 MG TABLET PO (19:39)
[2024-02-26] MEDS: Levothyroxine Sodium 88 MCG TABLET PO (05:35)
[2024-02-26 05:46] LABS: Glucose, Whole Blood 115 mg/dL (60-115)
[2024-02-26] MEDS: CYCLOSPORINE 1 EACH EYE-BOTH ×2 (08:27→19:51)
[2024-02-26 08:29] VITALS: BP 108/59; PULSE 61; RESP 20; TEMP 36.1; O2SAT 99
[2024-02-26] MEDS: Simethicone 80 MG TAB.CHEW PO ×2 (08:30→19:52)
[2024-02-26] MEDS: amLODIPine Besylate 2.5 MG TABLET PO (08:31)
[2024-02-26] MEDS: Cholecalciferol (Vitamin D3) 25 MCG TABLET PO (08:31)
[2024-02-26] MEDS: Escitalopram Oxalate 10 MG TABLET PO (08:31)
[2024-02-26] MEDS: Acetaminophen 325 MG TABLET 650 MG PO ×2 (08:32→19:52)
[2024-02-26] MEDS: Memantine HCl 5 MG TABLET PO (08:32)
[2024-02-26] MEDS: SITagliptin Phosphate 100 MG TABLET PO (08:32)
[2024-02-26] MEDS: allopurinoL 100 MG TABLET PO (08:32)
--- NOTE | 2024-02-26 15:36 | HO.PSYCHPN ---
Subjective Subjective Date of Service: 02/26/24 Reason For Visit: psychosis Subjective Notes: Conditional Voluntary Interim History: The nursing staff reported no changes in her mental status compliant with treatment. On interview the patient denies new symptoms, waiting for placement. Mental Status Exam Mental Status Exam Patient Appearance: Well Grooomed and Appropriate Patient Orientation: Person and Situation Level of Consciousness: Awake and Appropriate Patient Behavior: Guarded and Passive Mood Description: Withdrawn Affect Description: Constricted Patient Cognition Impaired: Yes Ability to Follow Directions: Good Speech Pattern: Clear Hallucinations: None Delusions: Not Present Thought Process: Distracted and Slowed Thinking Thought Content: positive for [place] and positive for Perseveration Judgement: Fair Diagnostics Vital Signs (24Hr): Vital Signs - 24 hr 02/25/24 19:37 02/26/24 08:29 Temperature 98.3 F 96.9 F Pulse Rate 71 61 Respiratory Rate 16 20 Blood Pressure 145/67 H 108/59 L Pulse Oximetry 94 99 Oxygen Delivery Method Room Air Room Air BMI result Body Mass Index 31.4 Labs 01/06/24 07:28 02/24/24 07:05 Labs: Laboratory Results - last 48 hr 02/25/24 02/26/24 06:29 05:37 POC Glucose 113 115 Medications Medications Current Medications Acetaminophen (Acetaminophen 325 Mg Tablet) 650 mg PO Q6H PRN PRN Reason: Headache/Pain Mild Scale (1-3) Last Admin: 02/26/24 08:32 Dose: 650 mg Al Hydroxide/Mg Hydroxide (Magnesium Hydrox/Alum Hydrox 30 Ml Oral.Susp) 30 ml PO Q6H PRN PRN Reason: Heartburn/Nausea Allopurinol (Allopurinol 100 Mg Tablet) 100 mg PO DAILY [facility] [place] Last Admin: 02/26/24 08:32 Dose: 100 mg Amlodipine Besylate (Amlodipine Besylate 2.5 Mg Tablet) 2.5 mg PO DAILY [facility]; Protocol Last Admin: 02/26/24 08:31 Dose: 2.5 mg Artificial Tears (Artificial Tears 15 Ml Drops) 2 drop EYE-BOTH Q4H PRN PRN Reason: Dry Eyes Last Admin: 02/21/24 20:48 Dose: 2 drop Atorvastatin Calcium (Atorvastatin Calcium 10 Mg Tablet) 10 mg PO BEDTIME [facility] Last Admin: 02/25/24 19:39 Dose: 10 mg Cyclobenzaprine HCl (Cyclobenzaprine Hcl 5 Mg Tablet) 5 mg PO TID PRN PRN Reason: back spasm Last Admin: 02/19/24 14:09 Dose: 5 mg Diphenoxylate HCl/Atropine (Diphenoxylate/Atrop 2.5/0.025 Tablet) 1 tab PO DAILY PRN PRN Reason: loose stools Last Admin: 02/09/24 10:32 Dose: 1 tab Donepezil HCl (Donepezil Hcl 5 Mg Tablet) 5 mg PO BEDTIME [facility] [place] Last Admin: 02/25/24 19:39 Dose: 5 mg Escitalopram Oxalate (Escitalopram Oxalate 10 Mg Tablet) 10 mg PO DAILY [facility] [place] Last Admin: 02/26/24 08:31 Dose: 10 mg Levothyroxine Sodium (Levothyroxine Sodium 88 Mcg Tablet) 88 mcg PO DAILY@0600 [facility] [place] Last Admin: 02/26/24 05:35 Dose: 88 mcg Loperamide HCl (Loperamide Hcl 2 Mg Capsule) 2 mg PO Q4H PRN PRN Reason: Loose Stool Lorazepam (Lorazepam 0.5 Mg Tablet) 0.5 mg PO DAILY PRN PRN Reason: Anxiety Last Admin: 01/29/24 09:27 Dose: 0.5 mg Magnesium Hydroxide (Milk Of Magnesia 30 Ml Oral.Susp) 30 ml PO DAILY PRN PRN Reason: Constipation Memantine (Memantine Hcl 5 Mg Tablet) 5 mg PO DAILY [facility] [place] [place] Last Admin: 02/26/24 08:32 Dose: 5 mg Metformin HCl (Metformin Hcl 500 Mg Tablet) 500 mg PO BEDTIME [facility] [place] Last Admin: 02/25/24 19:39 Dose: 500 mg Pt Own (Cyclosporine ([Restasis] 1 Drop)) 1 drop EYE-BOTH BID [facility] Last Admin: 02/26/24 08:27 Dose: 1 drop Olanzapine (Olanzapine 2.5 Mg Tablet) 2.5 mg PO Q4H PRN PRN Reason: agitation/acute psychosis Simethicone (Simethicone 80 Mg Tab.Chew) 80 mg PO QIDWMHS PRN PRN Reason: bloating Last Admin: 02/26/24 08:30 Dose: 80 mg Sitagliptin Phosphate (Sitagliptin Phosphate 100 Mg Tablet) 100 mg PO DAILY [facility] [place] Last Admin: 02/26/24 08:32 Dose: 100 mg Trazodone HCl (Trazodone Hcl 50 Mg Tablet) 50 mg PO BEDTIME [facility] PRN PRN Reason: Insomnia Last Admin: 02/05/24 21:08 Dose: 50 mg Vitamin D (Cholecalciferol (Vitamin D3) 25 Mcg Tablet) 25 mcg PO DAILY [facility] Last Admin: 02/26/24 08:31 Dose: 25 mcg Zolpidem Tartrate (Zolpidem Tartrate 5 Mg Tablet) 5 mg PO BEDTIME [facility] Last Admin: 02/25/24 19:39 Dose: 5 mg Allergies Allergies Allergy/AdvReac Type Severity Reaction Status Date / Time codeine Allergy Unknown Verified 12/07/23 20:27 Assessment & Plan Assessment & Plan (1) Dementia with psychotic disturbance: Status: Acute Code(s): F03.92 - Unspecified dementia, unspecified severity, with psychotic disturbance Plan Mrs. Jin is a 83 year-old woman with hx of vascular dementia with delusions of having an affair and some paranoid delusions. Some insight that this may not be the case but pt very much believes and takes action based on delusion despite here reporting that it may not be happening. It is unclear report from [facility] as to suicidal ideation. no indication of imminent harm to self or others, but collateral information is pending from family. May consider antipsychotic. PLAN 1. Continue with same treatment. 2. Waiting for placement. Reason for continued inpatient stay Substantial Risk for: inability to function, rapid decompensation and med/psych decompensation Time Spent With Patient Time: Total time managing care of this patient today __20__ minutes.
[2024-02-26 19:50] VITALS: BP 135/58; PULSE 72; RESP 16; TEMP 36.6; O2SAT 96
[2024-02-26] MEDS: metFORMIN HCl 500 MG TABLET PO (19:52)
[2024-02-26] MEDS: Atorvastatin Calcium 10 MG TABLET PO (19:52)
[2024-02-26] MEDS: Zolpidem Tartrate 5 MG TABLET PO (19:52)
[2024-02-26] MEDS: Donepezil HCl 5 MG TABLET PO (19:52)
[2024-02-27] MEDS: Levothyroxine Sodium 88 MCG TABLET PO (05:07)
[2024-02-27 05:17] LABS: Glucose, Whole Blood 117 mg/dL (60-115)
[2024-02-27 06:49] LABS: Glucose, Whole Blood 130 mg/dL (60-115)
[2024-02-27 08:00] VITALS: BP 152/70; PULSE 71; RESP 18; TEMP 37; O2SAT 98
[2024-02-27] MEDS: CYCLOSPORINE 1 EACH EYE-BOTH ×2 (08:21→20:45)
[2024-02-27] MEDS: SITagliptin Phosphate 100 MG TABLET PO (08:21)
[2024-02-27] MEDS: Acetaminophen 325 MG TABLET 650 MG PO ×2 (08:21→20:46)
[2024-02-27] MEDS: amLODIPine Besylate 2.5 MG TABLET PO (08:21)
[2024-02-27] MEDS: allopurinoL 100 MG TABLET PO (08:22)
[2024-02-27] MEDS: Cholecalciferol (Vitamin D3) 25 MCG TABLET PO (08:22)
[2024-02-27] MEDS: Escitalopram Oxalate 10 MG TABLET PO (08:22)
[2024-02-27] MEDS: Memantine HCl 5 MG TABLET PO (08:22)
[2024-02-27] MEDS: Simethicone 80 MG TAB.CHEW PO ×2 (08:22→20:45)
--- NOTE | 2024-02-27 13:59 | P.PNPSI_ITS ---
Subjective Subjective Date of Service: 02/27/24 Reason For Visit: psychosis Subjective Notes: Conditional Voluntary Interim History: The nursing staff reported no changes in her mental status, fully compliant with treatment. On interview the patient denies new symptoms, waiting for placement. Mental Status Exam Mental Status Exam Patient Appearance: Appropriate Patient Orientation: Person and Situation Level of Consciousness: Awake and Appropriate Patient Behavior: Guarded and Passive Mood Description: Withdrawn Affect Description: Constricted Patient Cognition Impaired: Yes Ability to Follow Directions: Good Speech Pattern: Clear Hallucinations: None Delusions: Not Present Thought Process: Distracted Thought Content: positive for Circumstantial Judgement: Fair Diagnostics Vital Signs (24Hr): Vital Signs - 24 hr 02/26/24 19:50 02/27/24 08:00 Temperature 97.8 F 98.6 F Pulse Rate 72 71 Respiratory Rate 16 18 Blood Pressure 135/58 L 152/70 H Pulse Oximetry 96 98 Oxygen Delivery Method Room Air Room Air BMI result Body Mass Index 31.4 Labs 01/06/24 07:28 02/24/24 07:05 Labs: Laboratory Results - last 48 hr 02/26/24 02/27/24 02/27/24 05:37 05:10 06:26 POC Glucose 115 117 H 130 H Medications Medications Current Medications Acetaminophen (Acetaminophen 325 Mg Tablet) 650 mg PO Q6H PRN PRN Reason: Headache/Pain Mild Scale (1-3) Last Admin: 02/27/24 08:21 Dose: 650 mg Al Hydroxide/Mg Hydroxide (Magnesium Hydrox/Alum Hydrox 30 Ml Oral.Susp) 30 ml PO Q6H PRN PRN Reason: Heartburn/Nausea Allopurinol (Allopurinol 100 Mg Tablet) 100 mg PO DAILY [facility] Last Admin: 02/27/24 08:22 Dose: 100 mg Amlodipine Besylate (Amlodipine Besylate 2.5 Mg Tablet) 2.5 mg PO DAILY [facility]; Protocol Last Admin: 02/27/24 08:21 Dose: 2.5 mg Artificial Tears (Artificial Tears 15 Ml Drops) 2 drop EYE-BOTH Q4H PRN PRN Reason: Dry Eyes Last Admin: 02/21/24 20:48 Dose: 2 drop Atorvastatin Calcium (Atorvastatin Calcium 10 Mg Tablet) 10 mg PO BEDTIME [facility] Last Admin: 02/26/24 19:52 Dose: 10 mg Cyclobenzaprine HCl (Cyclobenzaprine Hcl 5 Mg Tablet) 5 mg PO TID PRN PRN Reason: back spasm Last Admin: 02/19/24 14:09 Dose: 5 mg Diphenoxylate HCl/Atropine (Diphenoxylate/Atrop 2.5/0.025 Tablet) 1 tab PO DAILY PRN PRN Reason: loose stools Last Admin: 02/09/24 10:32 Dose: 1 tab Donepezil HCl (Donepezil Hcl 5 Mg Tablet) 5 mg PO BEDTIME [facility] Last Admin: 02/26/24 19:52 Dose: 5 mg Escitalopram Oxalate (Escitalopram Oxalate 10 Mg Tablet) 10 mg PO DAILY [facility] Last Admin: 02/27/24 08:22 Dose: 10 mg Levothyroxine Sodium (Levothyroxine Sodium 88 Mcg Tablet) 88 mcg PO DAILY@0600 [facility] Last Admin: 02/27/24 05:07 Dose: 88 mcg Loperamide HCl (Loperamide Hcl 2 Mg Capsule) 2 mg PO Q4H PRN PRN Reason: Loose Stool Lorazepam (Lorazepam 0.5 Mg Tablet) 0.5 mg PO DAILY PRN PRN Reason: Anxiety Last Admin: 01/29/24 09:27 Dose: 0.5 mg Magnesium Hydroxide (Milk Of Magnesia 30 Ml Oral.Susp) 30 ml PO DAILY PRN PRN Reason: Constipation Memantine (Memantine Hcl 5 Mg Tablet) 5 mg PO DAILY [facility] Last Admin: 02/27/24 08:22 Dose: 5 mg Metformin HCl (Metformin Hcl 500 Mg Tablet) 500 mg PO BEDTIME [facility] Last Admin: 02/26/24 19:52 Dose: 500 mg Pt Own (Cyclosporine ([Restasis] 1 Drop)) 1 drop EYE-BOTH BID [facility] Last Admin: 02/27/24 08:21 Dose: 1 drop Olanzapine (Olanzapine 2.5 Mg Tablet) 2.5 mg PO Q4H PRN PRN Reason: agitation/acute psychosis Simethicone (Simethicone 80 Mg Tab.Chew) 80 mg PO QIDWMHS PRN PRN Reason: bloating Last Admin: 02/27/24 08:22 Dose: 80 mg Sitagliptin Phosphate (Sitagliptin Phosphate 100 Mg Tablet) 100 mg PO DAILY [facility] Last Admin: 02/27/24 08:21 Dose: 100 mg Trazodone HCl (Trazodone Hcl 50 Mg Tablet) 50 mg PO BEDTIME MRX1 PRN PRN Reason: Insomnia Last Admin: 02/05/24 21:08 Dose: 50 mg Vitamin D (Cholecalciferol (Vitamin D3) 25 Mcg Tablet) 25 mcg PO DAILY [facility] Last Admin: 02/27/24 08:22 Dose: 25 mcg Zolpidem Tartrate (Zolpidem Tartrate 5 Mg Tablet) 5 mg PO BEDTIME [facility] Last Admin: 02/26/24 19:52 Dose: 5 mg Allergies Allergies Allergy/AdvReac Type Severity Reaction Status Date / Time codeine Allergy Unknown Verified 12/07/23 20:27 Assessment & Plan Assessment & Plan (1) Dementia with psychotic disturbance: Status: Acute Code(s): F03.92 - Unspecified dementia, unspecified severity, with psychotic disturbance Plan Mrs. Jin is a 83 year-old woman with hx of vascular dementia with delusions of having an affair and some paranoid delusions. Some insight that this may not be the case but pt very much believes and takes action based on delusion despite here reporting that it may not be happening. It is unclear report from [facility] as to suicidal ideation. no indication of imminent harm to self or others, but collateral information is pending from family. May consider antipsychotic. PLAN 1. Continue with same treatment. 2. Waiting for placement. Reason for continued inpatient stay Substantial Risk for: inability to function, rapid decompensation and med/psych decompensation Time Spent With Patient Time: Total time managing care of this patient today __20__ minutes.
[2024-02-27 20:00] VITALS: BP 128/60; PULSE 66; RESP 18; TEMP 37.1; O2SAT 97
[2024-02-27] MEDS: Donepezil HCl 5 MG TABLET PO (20:45)
[2024-02-27] MEDS: metFORMIN HCl 500 MG TABLET PO (20:46)
[2024-02-27] MEDS: Atorvastatin Calcium 10 MG TABLET PO (20:46)
[2024-02-27] MEDS: Zolpidem Tartrate 5 MG TABLET PO (20:46)
[2024-02-28] MEDS: Levothyroxine Sodium 88 MCG TABLET PO (06:10)
[2024-02-28 06:46] LABS: Glucose, Whole Blood 116 mg/dL (60-115)
[2024-02-28 07:46] VITALS: BP 132/64; PULSE 76; RESP 17; TEMP 36.3; O2SAT 99
[2024-02-28] MEDS: amLODIPine Besylate 2.5 MG TABLET PO (08:02)
[2024-02-28] MEDS: SITagliptin Phosphate 100 MG TABLET PO (08:02)
[2024-02-28] MEDS: allopurinoL 100 MG TABLET PO (08:03)
[2024-02-28] MEDS: Acetaminophen 325 MG TABLET 650 MG PO ×2 (08:03→20:39)
[2024-02-28] MEDS: Escitalopram Oxalate 10 MG TABLET PO (08:03)
[2024-02-28] MEDS: Cholecalciferol (Vitamin D3) 25 MCG TABLET PO (08:03)
[2024-02-28] MEDS: Memantine HCl 5 MG TABLET PO (08:03)
[2024-02-28] MEDS: Simethicone 80 MG TAB.CHEW PO ×2 (08:05→20:39)
[2024-02-28] MEDS: CYCLOSPORINE 1 EACH EYE-BOTH ×2 (08:06→20:39)
--- NOTE | 2024-02-28 13:46 | HO.PSYCHPN ---
Subjective Subjective Date of Service: 02/28/24 Reason For Visit: psychosis Subjective Notes: Conditional Voluntary Interim History: The nursing staff reported no changes in his mental status, cooperative pleasant compliant with treatment. On interview the patient denies new symptoms, waiting for placement. Mental Status Exam Mental Status Exam Patient Appearance: Well Grooomed and Appropriate Patient Orientation: Person and Situation Level of Consciousness: Awake and Appropriate Patient Behavior: Guarded and Passive Mood Description: Calm Affect Description: Constricted Patient Cognition Impaired: Yes Ability to Follow Directions: Good Speech Pattern: Clear Hallucinations: None Delusions: Not Present Thought Process: Distracted and Slowed Thinking Thought Content: positive for [place] and positive for Poverty of Content Judgement: Fair Diagnostics Vital Signs (24Hr): Vital Signs - 24 hr 02/27/24 20:00 02/28/24 07:46 Temperature 98.7 F 97.4 F Pulse Rate 66 76 Respiratory Rate 18 17 Blood Pressure 128/60 132/64 Pulse Oximetry 97 99 Oxygen Delivery Method Room Air Room Air BMI result Body Mass Index 31.4 Labs 01/06/24 07:28 02/24/24 07:05 Labs: Laboratory Results - last 48 hr 02/27/24 02/27/24 02/28/24 05:10 06:26 06:11 POC Glucose 117 H 130 H 116 H Medications Medications Current Medications Acetaminophen (Acetaminophen 325 Mg Tablet) 650 mg PO Q6H PRN PRN Reason: Headache/Pain Mild Scale (1-3) Last Admin: 02/28/24 08:03 Dose: 650 mg Al Hydroxide/Mg Hydroxide (Magnesium Hydrox/Alum Hydrox 30 Ml Oral.Susp) 30 ml PO Q6H PRN PRN Reason: Heartburn/Nausea Allopurinol (Allopurinol 100 Mg Tablet) 100 mg PO DAILY [facility] Last Admin: 02/28/24 08:03 Dose: 100 mg Amlodipine Besylate (Amlodipine Besylate 2.5 Mg Tablet) 2.5 mg PO DAILY [facility]; Protocol Last Admin: 02/28/24 08:02 Dose: 2.5 mg Artificial Tears (Artificial Tears 15 Ml Drops) 2 drop EYE-BOTH Q4H PRN PRN Reason: Dry Eyes Last Admin: 02/21/24 20:48 Dose: 2 drop Atorvastatin Calcium (Atorvastatin Calcium 10 Mg Tablet) 10 mg PO BEDTIME [facility] Last Admin: 02/27/24 20:46 Dose: 10 mg Cyclobenzaprine HCl (Cyclobenzaprine Hcl 5 Mg Tablet) 5 mg PO TID PRN PRN Reason: back spasm Last Admin: 02/19/24 14:09 Dose: 5 mg Diphenoxylate HCl/Atropine (Diphenoxylate/Atrop 2.5/0.025 Tablet) 1 tab PO DAILY PRN PRN Reason: loose stools Last Admin: 02/09/24 10:32 Dose: 1 tab Donepezil HCl (Donepezil Hcl 5 Mg Tablet) 5 mg PO BEDTIME [facility] Last Admin: 02/27/24 20:45 Dose: 5 mg Escitalopram Oxalate (Escitalopram Oxalate 10 Mg Tablet) 10 mg PO DAILY [facility] Last Admin: 02/28/24 08:03 Dose: 10 mg Levothyroxine Sodium (Levothyroxine Sodium 88 Mcg Tablet) 88 mcg PO DAILY@0600 [facility] Last Admin: 02/28/24 06:10 Dose: 88 mcg Loperamide HCl (Loperamide Hcl 2 Mg Capsule) 2 mg PO Q4H PRN PRN Reason: Loose Stool Lorazepam (Lorazepam 0.5 Mg Tablet) 0.5 mg PO DAILY PRN PRN Reason: Anxiety Last Admin: 01/29/24 09:27 Dose: 0.5 mg Magnesium Hydroxide (Milk Of Magnesia 30 Ml Oral.Susp) 30 ml PO DAILY PRN PRN Reason: Constipation Memantine (Memantine Hcl 5 Mg Tablet) 5 mg PO DAILY [facility] Last Admin: 02/28/24 08:03 Dose: 5 mg Metformin HCl (Metformin Hcl 500 Mg Tablet) 500 mg PO BEDTIME [facility] Last Admin: 02/27/24 20:46 Dose: 500 mg Pt Own (Cyclosporine ([Restasis] 1 Drop)) 1 drop EYE-BOTH BID [facility] Last Admin: 02/28/24 08:06 Dose: 1 drop Olanzapine (Olanzapine 2.5 Mg Tablet) 2.5 mg PO Q4H PRN PRN Reason: agitation/acute psychosis Simethicone (Simethicone 80 Mg Tab.Chew) 80 mg PO QIDWMHS PRN PRN Reason: bloating Last Admin: 02/28/24 08:05 Dose: 80 mg Sitagliptin Phosphate (Sitagliptin Phosphate 100 Mg Tablet) 100 mg PO DAILY [facility] Last Admin: 02/28/24 08:02 Dose: 100 mg Trazodone HCl (Trazodone Hcl 50 Mg Tablet) 50 mg PO BEDTIME MRX1 PRN PRN Reason: Insomnia Last Admin: 02/05/24 21:08 Dose: 50 mg Vitamin D (Cholecalciferol (Vitamin D3) 25 Mcg Tablet) 25 mcg PO DAILY [facility] Last Admin: 02/28/24 08:03 Dose: 25 mcg Zolpidem Tartrate (Zolpidem Tartrate 5 Mg Tablet) 5 mg PO BEDTIME [facility] Last Admin: 02/27/24 20:46 Dose: 5 mg Allergies Allergies Allergy/AdvReac Type Severity Reaction Status Date / Time codeine Allergy Unknown Verified 12/07/23 20:27 Assessment & Plan Assessment & Plan (1) Dementia with psychotic disturbance: Status: Acute Code(s): F03.92 - Unspecified dementia, unspecified severity, with psychotic disturbance Plan Mrs. Jin is a 83 year-old woman with hx of vascular dementia with delusions of having an affair and some paranoid delusions. Some insight that this may not be the case but pt very much believes and takes action based on delusion despite here reporting that it may not be happening. It is unclear report from [facility] as to suicidal ideation. no indication of imminent harm to self or others, but collateral information is pending from family. May consider antipsychotic. PLAN 1. Continue with same treatment. 2. Waiting for placement. Reason for continued inpatient stay Substantial Risk for: inability to function, rapid decompensation and med/psych decompensation Time Spent With Patient Time: Total time managing care of this patient today __20__ minutes.
[2024-02-28 20:00] VITALS: BP 117/67; PULSE 68; RESP 18; TEMP 36.6; O2SAT 99
[2024-02-28] MEDS: metFORMIN HCl 500 MG TABLET PO (20:39)
[2024-02-28] MEDS: Zolpidem Tartrate 5 MG TABLET PO (20:40)
[2024-02-28] MEDS: Atorvastatin Calcium 10 MG TABLET PO (20:40)
[2024-02-28] MEDS: Donepezil HCl 5 MG TABLET PO (20:40)
[2024-02-29] MEDS: Levothyroxine Sodium 88 MCG TABLET PO (06:26)
[2024-02-29 06:40] LABS: Glucose, Whole Blood 115 mg/dL (60-115)
[2024-02-29 07:00] VITALS: BMI 32.1
[2024-02-29] MEDS: Simethicone 80 MG TAB.CHEW PO ×2 (08:33→20:40)
[2024-02-29] MEDS: Cholecalciferol (Vitamin D3) 25 MCG TABLET PO (08:33)
[2024-02-29] MEDS: Acetaminophen 325 MG TABLET 650 MG PO ×2 (08:33→20:40)
[2024-02-29] MEDS: Escitalopram Oxalate 10 MG TABLET PO (08:33)
[2024-02-29] MEDS: SITagliptin Phosphate 100 MG TABLET PO (08:33)
[2024-02-29] MEDS: allopurinoL 100 MG TABLET PO (08:33)
[2024-02-29] MEDS: Memantine HCl 5 MG TABLET PO (08:33)
[2024-02-29 08:34] VITALS: BP 136/62
[2024-02-29] MEDS: amLODIPine Besylate 2.5 MG TABLET PO (08:34)
[2024-02-29] MEDS: CYCLOSPORINE 1 EACH EYE-BOTH (08:35)
[2024-02-29 08:36] VITALS: BP 136/62; PULSE 77; RESP 17; TEMP 36; O2SAT 95
--- NOTE | 2024-02-29 14:18 | P.PNPSI_ITS ---
Subjective Subjective Date of Service: 02/29/24 Reason For Visit: psychosis Subjective Notes: Conditional Voluntary Interim History: The nursing staff reported no changes in her mental status, cooperative pleasant. On interview the patient denies new symptoms, waiting for placement. Mental Status Exam Mental Status Exam Patient Appearance: Well Grooomed and Appropriate Patient Orientation: Person and Situation Level of Consciousness: Awake and Appropriate Patient Behavior: Guarded and Passive Mood Description: Withdrawn Affect Description: Constricted Patient Cognition Impaired: Yes Ability to Follow Directions: Good Speech Pattern: Clear Hallucinations: None Delusions: Not Present Thought Process: Distracted and Slowed Thinking Thought Content: positive for [place] and positive for Poverty of Content Judgement: Fair Diagnostics Vital Signs (24Hr): Vital Signs - 24 hr 02/28/24 20:00 02/29/24 08:34 02/29/24 08:36 Temperature 97.9 F 96.8 F Pulse Rate 68 77 Respiratory Rate 18 17 Blood Pressure 117/67 136/62 136/62 Pulse Oximetry 99 95 Oxygen Delivery Method Room Air Room Air BMI result Body Mass Index 32.1 Labs 01/06/24 07:28 02/24/24 07:05 Labs: Laboratory Results - last 48 hr 02/28/24 02/29/24 06:11 06:22 POC Glucose 116 H 115 Medications Medications Current Medications Acetaminophen (Acetaminophen 325 Mg Tablet) 650 mg PO Q6H PRN PRN Reason: Headache/Pain Mild Scale (1-3) Last Admin: 02/29/24 08:33 Dose: 650 mg Al Hydroxide/Mg Hydroxide (Magnesium Hydrox/Alum Hydrox 30 Ml Oral.Susp) 30 ml PO Q6H PRN PRN Reason: Heartburn/Nausea Allopurinol (Allopurinol 100 Mg Tablet) 100 mg PO DAILY [facility] Last Admin: 02/29/24 08:33 Dose: 100 mg Amlodipine Besylate (Amlodipine Besylate 2.5 Mg Tablet) 2.5 mg PO DAILY [facility]; Protocol Last Admin: 02/29/24 08:34 Dose: 2.5 mg Artificial Tears (Artificial Tears 15 Ml Drops) 2 drop EYE-BOTH Q4H PRN PRN Reason: Dry Eyes Last Admin: 02/21/24 20:48 Dose: 2 drop Atorvastatin Calcium (Atorvastatin Calcium 10 Mg Tablet) 10 mg PO BEDTIME [facility] Last Admin: 02/28/24 20:40 Dose: 10 mg Cyclobenzaprine HCl (Cyclobenzaprine Hcl 5 Mg Tablet) 5 mg PO TID PRN PRN Reason: back spasm Last Admin: 02/19/24 14:09 Dose: 5 mg Diphenoxylate HCl/Atropine (Diphenoxylate/Atrop 2.5/0.025 Tablet) 1 tab PO DAILY PRN PRN Reason: loose stools Last Admin: 02/09/24 10:32 Dose: 1 tab Donepezil HCl (Donepezil Hcl 5 Mg Tablet) 5 mg PO BEDTIME [facility] Last Admin: 02/28/24 20:40 Dose: 5 mg Escitalopram Oxalate (Escitalopram Oxalate 10 Mg Tablet) 10 mg PO DAILY [facility] Last Admin: 02/29/24 08:33 Dose: 10 mg Levothyroxine Sodium (Levothyroxine Sodium 88 Mcg Tablet) 88 mcg PO DAILY@0600 [facility] Last Admin: 02/29/24 06:26 Dose: 88 mcg Loperamide HCl (Loperamide Hcl 2 Mg Capsule) 2 mg PO Q4H PRN PRN Reason: Loose Stool Lorazepam (Lorazepam 0.5 Mg Tablet) 0.5 mg PO DAILY PRN PRN Reason: Anxiety Last Admin: 01/29/24 09:27 Dose: 0.5 mg Magnesium Hydroxide (Milk Of Magnesia 30 Ml Oral.Susp) 30 ml PO DAILY PRN PRN Reason: Constipation Memantine (Memantine Hcl 5 Mg Tablet) 5 mg PO DAILY [facility] Last Admin: 02/29/24 08:33 Dose: 5 mg Metformin HCl (Metformin Hcl 500 Mg Tablet) 500 mg PO BEDTIME [facility] Last Admin: 02/28/24 20:39 Dose: 500 mg Pt Own (Cyclosporine ([Restasis] 1 Drop)) 1 drop EYE-BOTH BID [facility] Last Admin: 02/29/24 08:35 Dose: 1 drop Olanzapine (Olanzapine 2.5 Mg Tablet) 2.5 mg PO Q4H PRN PRN Reason: agitation/acute psychosis Simethicone (Simethicone 80 Mg Tab.Chew) 80 mg PO QIDWMHS PRN PRN Reason: bloating Last Admin: 02/29/24 08:33 Dose: 80 mg Sitagliptin Phosphate (Sitagliptin Phosphate 100 Mg Tablet) 100 mg PO DAILY [facility] Last Admin: 02/29/24 08:33 Dose: 100 mg Trazodone HCl (Trazodone Hcl 50 Mg Tablet) 50 mg PO BEDTIME MRX1 PRN PRN Reason: Insomnia Last Admin: 02/05/24 21:08 Dose: 50 mg Vitamin D (Cholecalciferol (Vitamin D3) 25 Mcg Tablet) 25 mcg PO DAILY [facility] Last Admin: 02/29/24 08:33 Dose: 25 mcg Zolpidem Tartrate (Zolpidem Tartrate 5 Mg Tablet) 5 mg PO BEDTIME [facility] Last Admin: 02/28/24 20:40 Dose: 5 mg Allergies Allergies Allergy/AdvReac Type Severity Reaction Status Date / Time codeine Allergy Unknown Verified 12/07/23 20:27 Assessment & Plan Assessment & Plan (1) Dementia with psychotic disturbance: Status: Acute Code(s): F03.92 - Unspecified dementia, unspecified severity, with psychotic disturbance Plan Mrs. Jin is a 83 year-old woman with hx of vascular dementia with delusions of having an affair and some paranoid delusions. Some insight that this may not be the case but pt very much believes and takes action based on delusion despite here reporting that it may not be happening. It is unclear report from [facility] as to suicidal ideation. no indication of imminent harm to self or others, but collateral information is pending from family. May consider antipsychotic. PLAN 1. Continue with same treatment. 2. Waiting for placement. Reason for continued inpatient stay Substantial Risk for: inability to function, rapid decompensation and med/psych decompensation Time Spent With Patient Time: Total time managing care of this patient today _20___ minutes.
[2024-02-29 19:56] VITALS: BP 112/67; PULSE 64; RESP 18; TEMP 36.4; O2SAT 98
[2024-02-29] MEDS: metFORMIN HCl 500 MG TABLET PO (20:40)
[2024-02-29] MEDS: Atorvastatin Calcium 10 MG TABLET PO (20:40)
[2024-02-29] MEDS: Artificial Tears 15 ML DROPS 2 DROP EYE-BOTH (20:40)
[2024-02-29] MEDS: Zolpidem Tartrate 5 MG TABLET PO (20:40)
[2024-02-29] MEDS: Donepezil HCl 5 MG TABLET PO (20:40)
[2024-03-01] MEDS: Levothyroxine Sodium 88 MCG TABLET PO (06:15)
[2024-03-01 06:31] LABS: Glucose, Whole Blood 115 mg/dL (60-115)
[2024-03-01] MEDS: Escitalopram Oxalate 10 MG TABLET PO (09:23)
[2024-03-01] MEDS: Memantine HCl 5 MG TABLET PO (09:23)
[2024-03-01] MEDS: Cholecalciferol (Vitamin D3) 25 MCG TABLET PO (09:23)
[2024-03-01] MEDS: SITagliptin Phosphate 100 MG TABLET PO (09:23)
[2024-03-01] MEDS: amLODIPine Besylate 2.5 MG TABLET PO (09:23)
[2024-03-01] MEDS: Artificial Tears 15 ML DROPS 2 DROP EYE-BOTH ×2 (09:23→20:58)
[2024-03-01] MEDS: allopurinoL 100 MG TABLET PO (09:23)
--- NOTE | 2024-03-01 12:30 | HO.PSYCHPN ---
Subjective Subjective Date of Service: 03/01/24 Reason For Visit: psychosis Subjective Notes: Conditional Voluntary Interim History: The nursing staff reported no changes in her mental status cooperative pleasant. On interview the patient denies new symptoms waiting for placement. Mental Status Exam Mental Status Exam Patient Appearance: Well Grooomed and Appropriate Patient Orientation: Person and Situation Level of Consciousness: Awake and Appropriate Patient Behavior: Guarded and Passive Mood Description: Calm Affect Description: Constricted Patient Cognition Impaired: Yes Ability to Follow Directions: Good Speech Pattern: Clear Hallucinations: None Delusions: Not Present Thought Process: Distracted and Slowed Thinking Thought Content: positive for [place] and positive for Poverty of Content Judgement: Fair Diagnostics Vital Signs (24Hr): Vital Signs - 24 hr 02/29/24 19:56 Temperature 97.6 F Pulse Rate 64 Respiratory Rate 18 Blood Pressure 112/67 Pulse Oximetry 98 Oxygen Delivery Method Room Air BMI result Body Mass Index 32.1 Labs 01/06/24 07:28 02/24/24 07:05 Labs: Laboratory Results - last 48 hr 02/29/24 03/01/24 06:22 06:11 POC Glucose 115 115 Medications Medications Current Medications Acetaminophen (Acetaminophen 325 Mg Tablet) 650 mg PO Q6H PRN PRN Reason: Headache/Pain Mild Scale (1-3) Last Admin: 02/29/24 20:40 Dose: 650 mg Al Hydroxide/Mg Hydroxide (Magnesium Hydrox/Alum Hydrox 30 Ml Oral.Susp) 30 ml PO Q6H PRN PRN Reason: Heartburn/Nausea Allopurinol (Allopurinol 100 Mg Tablet) 100 mg PO DAILY [facility] Last Admin: 03/01/24 09:23 Dose: 100 mg Amlodipine Besylate (Amlodipine Besylate 2.5 Mg Tablet) 2.5 mg PO DAILY [facility]; Protocol Last Admin: 03/01/24 09:23 Dose: 2.5 mg Artificial Tears (Artificial Tears 15 Ml Drops) 2 drop EYE-BOTH Q4H PRN PRN Reason: Dry Eyes Last Admin: 03/01/24 09:23 Dose: 2 drop Atorvastatin Calcium (Atorvastatin Calcium 10 Mg Tablet) 10 mg PO BEDTIME [facility] Last Admin: 02/29/24 20:40 Dose: 10 mg Cyclobenzaprine HCl (Cyclobenzaprine Hcl 5 Mg Tablet) 5 mg PO TID PRN PRN Reason: back spasm Last Admin: 02/19/24 14:09 Dose: 5 mg Diphenoxylate HCl/Atropine (Diphenoxylate/Atrop 2.5/0.025 Tablet) 1 tab PO DAILY PRN PRN Reason: loose stools Last Admin: 02/09/24 10:32 Dose: 1 tab Donepezil HCl (Donepezil Hcl 5 Mg Tablet) 5 mg PO BEDTIME [facility] Last Admin: 02/29/24 20:40 Dose: 5 mg Escitalopram Oxalate (Escitalopram Oxalate 10 Mg Tablet) 10 mg PO DAILY [facility] Last Admin: 03/01/24 09:23 Dose: 10 mg Levothyroxine Sodium (Levothyroxine Sodium 88 Mcg Tablet) 88 mcg PO DAILY@0600 [facility] Last Admin: 03/01/24 06:15 Dose: 88 mcg Loperamide HCl (Loperamide Hcl 2 Mg Capsule) 2 mg PO Q4H PRN PRN Reason: Loose Stool Lorazepam (Lorazepam 0.5 Mg Tablet) 0.5 mg PO DAILY PRN PRN Reason: Anxiety Last Admin: 01/29/24 09:27 Dose: 0.5 mg Magnesium Hydroxide (Milk Of Magnesia 30 Ml Oral.Susp) 30 ml PO DAILY PRN PRN Reason: Constipation Memantine (Memantine Hcl 5 Mg Tablet) 5 mg PO DAILY [facility] Last Admin: 03/01/24 09:23 Dose: 5 mg Metformin HCl (Metformin Hcl 500 Mg Tablet) 500 mg PO BEDTIME [facility] Last Admin: 02/29/24 20:40 Dose: 500 mg Pt Own (Cyclosporine ([Restasis] 1 Drop)) 1 drop EYE-BOTH BID [facility] Last Admin: 03/01/24 09:26 Dose: Not Given Olanzapine (Olanzapine 2.5 Mg Tablet) 2.5 mg PO Q4H PRN PRN Reason: agitation/acute psychosis Simethicone (Simethicone 80 Mg Tab.Chew) 80 mg PO QIDWMHS PRN PRN Reason: bloating Last Admin: 02/29/24 20:40 Dose: 80 mg Sitagliptin Phosphate (Sitagliptin Phosphate 100 Mg Tablet) 100 mg PO DAILY [facility] Last Admin: 03/01/24 09:23 Dose: 100 mg Trazodone HCl (Trazodone Hcl 50 Mg Tablet) 50 mg PO BEDTIME MRX1 PRN PRN Reason: Insomnia Last Admin: 02/05/24 21:08 Dose: 50 mg Vitamin D (Cholecalciferol (Vitamin D3) 25 Mcg Tablet) 25 mcg PO DAILY [facility] Last Admin: 03/01/24 09:23 Dose: 25 mcg Zolpidem Tartrate (Zolpidem Tartrate 5 Mg Tablet) 5 mg PO BEDTIME [facility] Last Admin: 02/29/24 20:40 Dose: 5 mg Allergies Allergies Allergy/AdvReac Type Severity Reaction Status Date / Time codeine Allergy Unknown Verified 12/07/23 20:27 Assessment & Plan Assessment & Plan (1) Dementia with psychotic disturbance: Status: Acute Code(s): F03.92 - Unspecified dementia, unspecified severity, with psychotic disturbance Plan Mrs. Jin is a 83 year-old woman with hx of vascular dementia with delusions of having an affair and some paranoid delusions. Some insight that this may not be the case but pt very much believes and takes action based on delusion despite here reporting that it may not be happening. It is unclear report from [facility] as to suicidal ideation. no indication of imminent harm to self or others, but collateral information is pending from family. May consider antipsychotic. PLAN 1. Continue with same treatment. 2. Waiting for placement. Reason for continued inpatient stay Substantial Risk for: inability to function, rapid decompensation and med/psych decompensation Time Spent With Patient Time: Total time managing care of this patient today __20__ minutes.
[2024-03-01] MEDS: Acetaminophen 325 MG TABLET 650 MG PO (14:52)
[2024-03-01 20:00] VITALS: BP 129/61; PULSE 72; RESP 16; TEMP 36.1; O2SAT 97
[2024-03-01] MEDS: Atorvastatin Calcium 10 MG TABLET PO (20:59)
[2024-03-01] MEDS: Simethicone 80 MG TAB.CHEW PO (20:59)
[2024-03-01] MEDS: Zolpidem Tartrate 5 MG TABLET PO (20:59)
[2024-03-01] MEDS: metFORMIN HCl 500 MG TABLET PO (20:59)
[2024-03-01] MEDS: Donepezil HCl 5 MG TABLET PO (20:59)
[2024-03-02] MEDS: Levothyroxine Sodium 88 MCG TABLET PO (06:14)
[2024-03-02 06:46] LABS: Glucose, Whole Blood 114 mg/dL (60-115)
[2024-03-02 08:00] VITALS: BP 125/58; PULSE 60; RESP 18; TEMP 36.9; O2SAT 98
[2024-03-02 08:29] LABS: Creatinine Clr Calc Pharmacy 38.4; Estimated Glomerular Filt Rate 43
--- NOTE | 2024-03-02 08:43 | HO.PSYCHPN ---
Subjective Subjective Date of Service: 03/02/24 Reason For Visit: psychosis Interim History: Pt sleeping through the night. She denies any concerns. Visible for meals, not particularly socializing with peers. keeps to self. No SI/HI. No overt psychosis or delusions. Review of Systems Review of Systems unremarkable Yes all other systems are reviewed and are negative Constitutional: Reports fatigue, Reports malaise and Reports weakness Reports vertigo and Reports dizziness Cardiovascular: Reports lightheadedness Reports vertigo, Reports dizziness and Reports weakness Endocrine: Reports fatigue Mental Status Exam Mental Status Exam Narrative: Appearance: wearing casual clothing, siting in chair, no NAD Behavior: cooperative Psychomotor: no retardation or agitation noted Speech: clear, normal rate/rhythm/volume, spontaneous TP: mostly linear TC: feeling okay Mood: fine Affect: congruent, SI: denies HI: denies VH/AH: none Delusions: not reported Insight/judgment: poor x 2. memory/cog: alert, oriented x 3. ACL 3.4 Diagnostics Vital Signs (24Hr): Vital Signs - 24 hr 03/01/24 20:00 Temperature 97.0 F Pulse Rate 72 Respiratory Rate 16 Blood Pressure 129/61 Pulse Oximetry 97 Oxygen Delivery Method Room Air BMI result Body Mass Index 32.1 Labs 01/06/24 07:28 03/02/24 08:01 Labs: Laboratory Results - last 48 hr 03/01/24 03/02/24 03/02/24 06:11 06:16 08:01 Creatinine 1.19 Estim Creat Clear Calc 38.4 Estimated GFR 43 POC Glucose 115 114 Medications Medications Current Medications Acetaminophen (Acetaminophen 325 Mg Tablet) 650 mg PO Q6H PRN PRN Reason: Headache/Pain Mild Scale (1-3) Last Admin: 03/01/24 14:52 Dose: 650 mg Al Hydroxide/Mg Hydroxide (Magnesium Hydrox/Alum Hydrox 30 Ml Oral.Susp) 30 ml PO Q6H PRN PRN Reason: Heartburn/Nausea Allopurinol (Allopurinol 100 Mg Tablet) 100 mg PO DAILY [facility] Last Admin: 03/01/24 09:23 Dose: 100 mg Amlodipine Besylate (Amlodipine Besylate 2.5 Mg Tablet) 2.5 mg PO DAILY [facility]; Protocol Last Admin: 03/01/24 09:23 Dose: 2.5 mg Artificial Tears (Artificial Tears 15 Ml Drops) 2 drop EYE-BOTH Q4H PRN PRN Reason: Dry Eyes Last Admin: 03/01/24 20:58 Dose: 2 drop Atorvastatin Calcium (Atorvastatin Calcium 10 Mg Tablet) 10 mg PO BEDTIME [facility] Last Admin: 03/01/24 20:59 Dose: 10 mg Cyclobenzaprine HCl (Cyclobenzaprine Hcl 5 Mg Tablet) 5 mg PO TID PRN PRN Reason: back spasm Last Admin: 02/19/24 14:09 Dose: 5 mg Diphenoxylate HCl/Atropine (Diphenoxylate/Atrop 2.5/0.025 Tablet) 1 tab PO DAILY PRN PRN Reason: loose stools Last Admin: 02/09/24 10:32 Dose: 1 tab Donepezil HCl (Donepezil Hcl 5 Mg Tablet) 5 mg PO BEDTIME [facility] Last Admin: 03/01/24 20:59 Dose: 5 mg Escitalopram Oxalate (Escitalopram Oxalate 10 Mg Tablet) 10 mg PO DAILY [facility] Last Admin: 03/01/24 09:23 Dose: 10 mg Levothyroxine Sodium (Levothyroxine Sodium 88 Mcg Tablet) 88 mcg PO DAILY@0600 [facility] Last Admin: 03/02/24 06:14 Dose: 88 mcg Loperamide HCl (Loperamide Hcl 2 Mg Capsule) 2 mg PO Q4H PRN PRN Reason: Loose Stool Lorazepam (Lorazepam 0.5 Mg Tablet) 0.5 mg PO DAILY PRN PRN Reason: Anxiety Last Admin: 01/29/24 09:27 Dose: 0.5 mg Magnesium Hydroxide (Milk Of Magnesia 30 Ml Oral.Susp) 30 ml PO DAILY PRN PRN Reason: Constipation Memantine (Memantine Hcl 5 Mg Tablet) 5 mg PO DAILY [facility] Last Admin: 03/01/24 09:23 Dose: 5 mg Metformin HCl (Metformin Hcl 500 Mg Tablet) 500 mg PO BEDTIME [facility] Last Admin: 03/01/24 20:59 Dose: 500 mg Pt Own (Cyclosporine ([Restasis] 1 Drop)) 1 drop EYE-BOTH BID [facility] Last Admin: 03/01/24 21:00 Dose: Not Given Olanzapine (Olanzapine 2.5 Mg Tablet) 2.5 mg PO Q4H PRN PRN Reason: agitation/acute psychosis Simethicone (Simethicone 80 Mg Tab.Chew) 80 mg PO QIDWMHS PRN PRN Reason: bloating Last Admin: 03/01/24 20:59 Dose: 80 mg Sitagliptin Phosphate (Sitagliptin Phosphate 100 Mg Tablet) 100 mg PO DAILY [facility] Last Admin: 03/01/24 09:23 Dose: 100 mg Trazodone HCl (Trazodone Hcl 50 Mg Tablet) 50 mg PO BEDTIME [facility]X1 PRN PRN Reason: Insomnia Last Admin: 02/05/24 21:08 Dose: 50 mg Vitamin D (Cholecalciferol (Vitamin D3) 25 Mcg Tablet) 25 mcg PO DAILY [facility] Last Admin: 03/01/24 09:23 Dose: 25 mcg Zolpidem Tartrate (Zolpidem Tartrate 5 Mg Tablet) 5 mg PO BEDTIME [facility] Last Admin: 03/01/24 20:59 Dose: 5 mg Allergies Allergies Allergy/AdvReac Type Severity Reaction Status Date / Time codeine Allergy Unknown Verified 12/07/23 20:27 Assessment & Plan Assessment & Plan (1) Dementia with psychotic disturbance: Status: Acute Code(s): F03.92 - Unspecified dementia, unspecified severity, with psychotic disturbance Plan Mrs. Jin is a 83 year-old woman with hx of vascular dementia with delusions of having an affair and some paranoid delusions. Some insight that this may not be the case but pt very much believes and takes action based on delusion despite here reporting that it may not be happening. It is unclear report from [facility] as to suicidal ideation. no indication of imminent harm to self or others, but collateral information is pending from family. May consider antipsychotic. PLAN 1. Continue with same treatment. 2. Waiting for placement. Reason for continued inpatient stay Substantial Risk for: inability to function Time Spent With Patient Time: Total time managing care of this patient today ____ minutes.
[2024-03-02] MEDS: SITagliptin Phosphate 100 MG TABLET PO (10:32)
[2024-03-02] MEDS: Cholecalciferol (Vitamin D3) 25 MCG TABLET PO (10:33)
[2024-03-02] MEDS: allopurinoL 100 MG TABLET PO (10:33)
[2024-03-02] MEDS: amLODIPine Besylate 2.5 MG TABLET PO (10:33)
[2024-03-02] MEDS: Memantine HCl 5 MG TABLET PO (10:33)
[2024-03-02] MEDS: Escitalopram Oxalate 10 MG TABLET PO (10:33)
[2024-03-02] MEDS: Artificial Tears 15 ML DROPS 2 DROP EYE-BOTH ×2 (10:38→20:51)
[2024-03-02] MEDS: Acetaminophen 325 MG TABLET 650 MG PO ×2 (10:58→20:51)
[2024-03-02] MEDS: Simethicone 80 MG TAB.CHEW PO ×2 (10:59→20:51)
[2024-03-02 20:00] VITALS: BP 119/58; PULSE 72; RESP 16; TEMP 36.9; O2SAT 96
[2024-03-02] MEDS: Atorvastatin Calcium 10 MG TABLET PO (20:51)
[2024-03-02] MEDS: Donepezil HCl 5 MG TABLET PO (20:51)
[2024-03-02] MEDS: Zolpidem Tartrate 5 MG TABLET PO (20:51)
[2024-03-02] MEDS: metFORMIN HCl 500 MG TABLET PO (20:51)
[2024-03-03] MEDS: Levothyroxine Sodium 88 MCG TABLET PO (06:38)
[2024-03-03 06:55] LABS: Glucose, Whole Blood 135 mg/dL (60-115)
[2024-03-03 09:07] VITALS: BP 150/71; PULSE 70; RESP 18; TEMP 36.9; O2SAT 96
[2024-03-03] MEDS: Memantine HCl 5 MG TABLET PO (09:11)
[2024-03-03] MEDS: allopurinoL 100 MG TABLET PO (09:11)
[2024-03-03] MEDS: Escitalopram Oxalate 10 MG TABLET PO (09:11)
[2024-03-03] MEDS: Cholecalciferol (Vitamin D3) 25 MCG TABLET PO (09:12)
[2024-03-03] MEDS: amLODIPine Besylate 2.5 MG TABLET PO (09:12)
[2024-03-03] MEDS: SITagliptin Phosphate 100 MG TABLET PO (09:12)
[2024-03-03] MEDS: Acetaminophen 325 MG TABLET 650 MG PO ×2 (09:43→21:00)
[2024-03-03] MEDS: Artificial Tears 15 ML DROPS 2 DROP EYE-BOTH ×2 (12:50→21:11)
--- NOTE | 2024-03-03 12:59 | PC.NURSE ---
has not brought in new Restasis drops so Artificial Tears were administered per the patient's request with good effect.
--- NOTE | 2024-03-03 19:53 | HO.PSYCHPN ---
Subjective Subjective Date of Service: 03/03/24 Reason For Visit: psychosis Interim History: Pt sleeping through the night. She denies any concerns. Visible for meals, not particularly socializing with peers. keeps to self. No SI/HI. No overt psychosis or delusions. Review of Systems Review of Systems unremarkable Yes all other systems are reviewed and are negative Constitutional: Reports fatigue, Reports malaise and Reports weakness Reports vertigo and Reports dizziness Cardiovascular: Reports lightheadedness Reports vertigo, Reports dizziness and Reports weakness Endocrine: Reports fatigue Mental Status Exam Mental Status Exam Narrative: Appearance: wearing casual clothing, siting in chair, no NAD Behavior: cooperative Psychomotor: no retardation or agitation noted Speech: clear, normal rate/rhythm/volume, spontaneous TP: mostly linear TC: feeling okay Mood: fine Affect: congruent, SI: denies HI: denies VH/AH: none Delusions: not reported Insight/judgment: poor x 2. memory/cog: alert, oriented x 3. ACL 3.4 Diagnostics Vital Signs (24Hr): Vital Signs - 24 hr 03/02/24 20:00 03/03/24 09:07 Temperature 98.5 F 98.4 F Pulse Rate 72 70 Respiratory Rate 16 18 Blood Pressure 119/58 L 150/71 H Pulse Oximetry 96 96 Oxygen Delivery Method Room Air Room Air BMI result Body Mass Index 32.1 Labs 01/06/24 07:28 03/02/24 08:01 Labs: Laboratory Results - last 48 hr 03/02/24 03/02/24 03/03/24 06:16 08:01 06:37 Creatinine 1.19 Estim Creat Clear Calc 38.4 Estimated GFR 43 POC Glucose 114 135 H Medications Medications Current Medications Acetaminophen (Acetaminophen 325 Mg Tablet) 650 mg PO Q6H PRN PRN Reason: Headache/Pain Mild Scale (1-3) Last Admin: 03/03/24 09:43 Dose: 650 mg Al Hydroxide/Mg Hydroxide (Magnesium Hydrox/Alum Hydrox 30 Ml Oral.Susp) 30 ml PO Q6H PRN PRN Reason: Heartburn/Nausea Allopurinol (Allopurinol 100 Mg Tablet) 100 mg PO DAILY [facility] Last Admin: 03/03/24 09:11 Dose: 100 mg Amlodipine Besylate (Amlodipine Besylate 2.5 Mg Tablet) 2.5 mg PO DAILY [facility]; Protocol Last Admin: 03/03/24 09:12 Dose: 2.5 mg Artificial Tears (Artificial Tears 15 Ml Drops) 2 drop EYE-BOTH Q4H PRN PRN Reason: Dry Eyes Last Admin: 03/03/24 12:50 Dose: 2 drop Atorvastatin Calcium (Atorvastatin Calcium 10 Mg Tablet) 10 mg PO BEDTIME [facility] Last Admin: 03/02/24 20:51 Dose: 10 mg Cyclobenzaprine HCl (Cyclobenzaprine Hcl 5 Mg Tablet) 5 mg PO TID PRN PRN Reason: back spasm Last Admin: 02/19/24 14:09 Dose: 5 mg Diphenoxylate HCl/Atropine (Diphenoxylate/Atrop 2.5/0.025 Tablet) 1 tab PO DAILY PRN PRN Reason: loose stools Last Admin: 02/09/24 10:32 Dose: 1 tab Donepezil HCl (Donepezil Hcl 5 Mg Tablet) 5 mg PO BEDTIME [facility] Last Admin: 03/02/24 20:51 Dose: 5 mg Escitalopram Oxalate (Escitalopram Oxalate 10 Mg Tablet) 10 mg PO DAILY [facility] Last Admin: 03/03/24 09:11 Dose: 10 mg Levothyroxine Sodium (Levothyroxine Sodium 88 Mcg Tablet) 88 mcg PO DAILY@0600 [facility] Last Admin: 03/03/24 06:38 Dose: 88 mcg Loperamide HCl (Loperamide Hcl 2 Mg Capsule) 2 mg PO Q4H PRN PRN Reason: Loose Stool Lorazepam (Lorazepam 0.5 Mg Tablet) 0.5 mg PO DAILY PRN PRN Reason: Anxiety Last Admin: 01/29/24 09:27 Dose: 0.5 mg Magnesium Hydroxide (Milk Of Magnesia 30 Ml Oral.Susp) 30 ml PO DAILY PRN PRN Reason: Constipation Memantine (Memantine Hcl 5 Mg Tablet) 5 mg PO DAILY [facility] Last Admin: 03/03/24 09:11 Dose: 5 mg Metformin HCl (Metformin Hcl 500 Mg Tablet) 500 mg PO BEDTIME [facility] Last Admin: 03/02/24 20:51 Dose: 500 mg Pt Own (Cyclosporine ([Restasis] 1 Drop)) 1 drop EYE-BOTH BID [facility] Last Admin: 03/03/24 12:49 Dose: Not Given Olanzapine (Olanzapine 2.5 Mg Tablet) 2.5 mg PO Q4H PRN PRN Reason: agitation/acute psychosis Simethicone (Simethicone 80 Mg Tab.Chew) 80 mg PO QIDWMHS PRN PRN Reason: bloating Last Admin: 03/02/24 20:51 Dose: 80 mg Sitagliptin Phosphate (Sitagliptin Phosphate 100 Mg Tablet) 100 mg PO DAILY [facility] Last Admin: 03/03/24 09:12 Dose: 100 mg Trazodone HCl (Trazodone Hcl 50 Mg Tablet) 50 mg PO BEDTIME [facility] PRN PRN Reason: Insomnia Last Admin: 02/05/24 21:08 Dose: 50 mg Vitamin D (Cholecalciferol (Vitamin D3) 25 Mcg Tablet) 25 mcg PO DAILY [facility] Last Admin: 03/03/24 09:12 Dose: 25 mcg Zolpidem Tartrate (Zolpidem Tartrate 5 Mg Tablet) 5 mg PO BEDTIME [facility] Last Admin: 03/02/24 20:51 Dose: 5 mg Allergies Allergies Allergy/AdvReac Type Severity Reaction Status Date / Time codeine Allergy Unknown Verified 12/07/23 20:27 Assessment & Plan Assessment & Plan (1) Dementia with psychotic disturbance: Status: Acute Code(s): F03.92 - Unspecified dementia, unspecified severity, with psychotic disturbance Plan Mrs. Jin is a 83 year-old woman with hx of vascular dementia with delusions of having an affair and some paranoid delusions. Some insight that this may not be the case but pt very much believes and takes action based on delusion despite here reporting that it may not be happening. It is unclear report from [facility] as to suicidal ideation. no indication of imminent harm to self or others, but collateral information is pending from family. May consider antipsychotic. PLAN 1. Continue with same treatment. 2. Waiting for placement. Reason for continued inpatient stay Substantial Risk for: inability to function Time Spent With Patient Time: Total time managing care of this patient today ____ minutes.
[2024-03-03 20:00] VITALS: BP 116/52; PULSE 70; RESP 18; TEMP 36.8; O2SAT 99
[2024-03-03] MEDS: Zolpidem Tartrate 5 MG TABLET PO (20:59)
[2024-03-03] MEDS: Donepezil HCl 5 MG TABLET PO (20:59)
[2024-03-03] MEDS: Atorvastatin Calcium 10 MG TABLET PO (20:59)
[2024-03-03] MEDS: metFORMIN HCl 500 MG TABLET PO (20:59)
[2024-03-03] MEDS: Cyclobenzaprine HCl 5 MG TABLET PO (21:12)
[2024-03-03] MEDS: Simethicone 80 MG TAB.CHEW PO (21:13)
[2024-03-04] MEDS: Levothyroxine Sodium 88 MCG TABLET PO (06:42)
[2024-03-04 06:53] LABS: Glucose, Whole Blood 117 mg/dL (60-115)
[2024-03-04 08:00] VITALS: BP 135/63; PULSE 63; RESP 18; TEMP 36.5; O2SAT 96
[2024-03-04] MEDS: allopurinoL 100 MG TABLET PO (10:38)
[2024-03-04] MEDS: amLODIPine Besylate 2.5 MG TABLET PO (10:38)
[2024-03-04] MEDS: Cholecalciferol (Vitamin D3) 25 MCG TABLET PO (10:39)
[2024-03-04] MEDS: Simethicone 80 MG TAB.CHEW PO ×2 (10:39→22:03)
[2024-03-04] MEDS: Acetaminophen 325 MG TABLET 650 MG PO ×2 (10:39→22:03)
[2024-03-04] MEDS: Escitalopram Oxalate 10 MG TABLET PO (10:39)
[2024-03-04] MEDS: SITagliptin Phosphate 100 MG TABLET PO (10:39)
[2024-03-04] MEDS: Memantine HCl 5 MG TABLET PO (10:39)
[2024-03-04] MEDS: Artificial Tears 15 ML DROPS 2 DROP EYE-BOTH (10:40)
--- NOTE | 2024-03-04 13:35 | P.PNPSI_ITS ---
Subjective Subjective Date of Service: 03/04/24 Reason For Visit: psychosis Subjective Notes: Conditional Voluntary Interim History: The nursing staff reported the patient had been pleasant cooperative, compliant with treatment. On interview the patient denies new symptoms, waiting for placement. Mental Status Exam Mental Status Exam Patient Appearance: Appropriate Patient Orientation: Person and Situation Level of Consciousness: Awake and Appropriate Patient Behavior: Guarded and Passive Mood Description: Withdrawn Affect Description: Constricted Patient Cognition Impaired: Yes Ability to Follow Directions: Good Speech Pattern: Clear Hallucinations: None Delusions: Not Present Thought Process: Distracted and Slowed Thinking Thought Content: positive for [place] and positive for Poverty of Content Judgement: Fair Diagnostics Vital Signs (24Hr): Vital Signs - 24 hr 03/03/24 20:00 03/04/24 08:00 Temperature 98.2 F 97.7 F Pulse Rate 70 63 Respiratory Rate 18 18 Blood Pressure 116/52 L 135/63 Pulse Oximetry 99 96 Oxygen Delivery Method Room Air Room Air BMI result Body Mass Index 32.1 Labs 01/06/24 07:28 03/02/24 08:01 Labs: Laboratory Results - last 48 hr 03/03/24 03/04/24 06:37 06:41 POC Glucose 135 H 117 H Medications Medications Current Medications Acetaminophen (Acetaminophen 325 Mg Tablet) 650 mg PO Q6H PRN PRN Reason: Headache/Pain Mild Scale (1-3) Last Admin: 03/04/24 10:39 Dose: 650 mg Al Hydroxide/Mg Hydroxide (Magnesium Hydrox/Alum Hydrox 30 Ml Oral.Susp) 30 ml PO Q6H PRN PRN Reason: Heartburn/Nausea Allopurinol (Allopurinol 100 Mg Tablet) 100 mg PO DAILY [facility] Last Admin: 03/04/24 10:38 Dose: 100 mg Amlodipine Besylate (Amlodipine Besylate 2.5 Mg Tablet) 2.5 mg PO DAILY [facility]; Protocol Last Admin: 03/04/24 10:38 Dose: 2.5 mg Artificial Tears (Artificial Tears 15 Ml Drops) 2 drop EYE-BOTH Q4H PRN PRN Reason: Dry Eyes Last Admin: 03/04/24 10:40 Dose: 2 drop Atorvastatin Calcium (Atorvastatin Calcium 10 Mg Tablet) 10 mg PO BEDTIME [facility] Last Admin: 03/03/24 20:59 Dose: 10 mg Cyclobenzaprine HCl (Cyclobenzaprine Hcl 5 Mg Tablet) 5 mg PO TID PRN PRN Reason: back spasm Last Admin: 03/03/24 21:12 Dose: 5 mg Diphenoxylate HCl/Atropine (Diphenoxylate/Atrop 2.5/0.025 Tablet) 1 tab PO DAILY PRN PRN Reason: loose stools Last Admin: 02/09/24 10:32 Dose: 1 tab Donepezil HCl (Donepezil Hcl 5 Mg Tablet) 5 mg PO BEDTIME [facility] Last Admin: 03/03/24 20:59 Dose: 5 mg Escitalopram Oxalate (Escitalopram Oxalate 10 Mg Tablet) 10 mg PO DAILY [facility] Last Admin: 03/04/24 10:39 Dose: 10 mg Levothyroxine Sodium (Levothyroxine Sodium 88 Mcg Tablet) 88 mcg PO DAILY@0600 [facility] Last Admin: 03/04/24 06:42 Dose: 88 mcg Loperamide HCl (Loperamide Hcl 2 Mg Capsule) 2 mg PO Q4H PRN PRN Reason: Loose Stool Lorazepam (Lorazepam 0.5 Mg Tablet) 0.5 mg PO DAILY PRN PRN Reason: Anxiety Last Admin: 01/29/24 09:27 Dose: 0.5 mg Magnesium Hydroxide (Milk Of Magnesia 30 Ml Oral.Susp) 30 ml PO DAILY PRN PRN Reason: Constipation Memantine (Memantine Hcl 5 Mg Tablet) 5 mg PO DAILY [facility] Last Admin: 03/04/24 10:39 Dose: 5 mg Metformin HCl (Metformin Hcl 500 Mg Tablet) 500 mg PO BEDTIME [facility] Last Admin: 03/03/24 20:59 Dose: 500 mg Pt Own (Cyclosporine ([Restasis] 1 Drop)) 1 drop EYE-BOTH BID [facility] Last Admin: 03/04/24 10:45 Dose: Not Given Olanzapine (Olanzapine 2.5 Mg Tablet) 2.5 mg PO Q4H PRN PRN Reason: agitation/acute psychosis Simethicone (Simethicone 80 Mg Tab.Chew) 80 mg PO QIDWMHS PRN PRN Reason: bloating Last Admin: 03/04/24 10:39 Dose: 80 mg Sitagliptin Phosphate (Sitagliptin Phosphate 100 Mg Tablet) 100 mg PO DAILY [facility] Last Admin: 03/04/24 10:39 Dose: 100 mg Trazodone HCl (Trazodone Hcl 50 Mg Tablet) 50 mg PO BEDTIME [facility] PRN PRN Reason: Insomnia Last Admin: 02/05/24 21:08 Dose: 50 mg Vitamin D (Cholecalciferol (Vitamin D3) 25 Mcg Tablet) 25 mcg PO DAILY [facility] Last Admin: 03/04/24 10:39 Dose: 25 mcg Zolpidem Tartrate (Zolpidem Tartrate 5 Mg Tablet) 5 mg PO BEDTIME [facility] Last Admin: 03/03/24 20:59 Dose: 5 mg Allergies Allergies Allergy/AdvReac Type Severity Reaction Status Date / Time codeine Allergy Unknown Verified 12/07/23 20:27 Assessment & Plan Assessment & Plan (1) Dementia with psychotic disturbance: Status: Acute Code(s): F03.92 - Unspecified dementia, unspecified severity, with psychotic disturbance Plan Mrs. Jin is a 83 year-old woman with hx of vascular dementia with delusions of having an affair and some paranoid delusions. Some insight that this may not be the case but pt very much believes and takes action based on delusion despite here reporting that it may not be happening. It is unclear report from [facility] as to suicidal ideation. no indication of imminent harm to self or others, but collateral information is pending from family. May consider antipsychotic. PLAN 1. Continue with same treatment. 2. Waiting for placement. Reason for continued inpatient stay Substantial Risk for: inability to function, rapid decompensation and med/psych decompensation Time Spent With Patient Time: Total time managing care of this patient today _20___ minutes.
[2024-03-04 20:00] VITALS: BP 120/56; PULSE 75; RESP 18; TEMP 36.4; O2SAT 98
[2024-03-04] MEDS: CYCLOSPORINE 1 EACH EYE-BOTH (21:26)
[2024-03-04] MEDS: Atorvastatin Calcium 10 MG TABLET PO (21:26)
[2024-03-04] MEDS: Donepezil HCl 5 MG TABLET PO (21:27)
[2024-03-04] MEDS: metFORMIN HCl 500 MG TABLET PO (21:27)
[2024-03-04] MEDS: Zolpidem Tartrate 5 MG TABLET PO (21:27)
[2024-03-05] MEDS: Levothyroxine Sodium 88 MCG TABLET PO (06:04)
[2024-03-05 06:54] LABS: Glucose, Whole Blood 112 mg/dL (60-115)
[2024-03-05 07:55] VITALS: BP 137/69; PULSE 66; RESP 18; TEMP 36.6; O2SAT 97
[2024-03-05] MEDS: Acetaminophen 325 MG TABLET 650 MG PO ×2 (09:27→21:02)
[2024-03-05] MEDS: CYCLOSPORINE 1 EACH EYE-BOTH ×2 (09:27→21:01)
[2024-03-05] MEDS: amLODIPine Besylate 2.5 MG TABLET PO (09:28)
[2024-03-05] MEDS: SITagliptin Phosphate 100 MG TABLET PO (09:28)
[2024-03-05] MEDS: Cholecalciferol (Vitamin D3) 25 MCG TABLET PO (09:28)
[2024-03-05] MEDS: allopurinoL 100 MG TABLET PO (09:28)
[2024-03-05] MEDS: Escitalopram Oxalate 10 MG TABLET PO (09:28)
[2024-03-05] MEDS: Memantine HCl 5 MG TABLET PO (09:28)
--- NOTE | 2024-03-05 13:29 | P.PNPSI_ITS ---
Subjective Subjective Date of Service: 03/05/24 Reason For Visit: psychosis Subjective Notes: Conditional Voluntary Interim History: The nursing staff reported no changes in her mental status cooperative pleasant. The social work assistant reported that his family still working on the paperwork for financial clearance. On interview the patient denies new symptoms, waiting for placement. Mental Status Exam Mental Status Exam Patient Appearance: Appropriate Patient Orientation: Person and Situation Level of Consciousness: Awake and Appropriate Patient Behavior: Guarded and Passive Mood Description: Withdrawn Affect Description: Constricted Patient Cognition Impaired: Yes Ability to Follow Directions: Good Speech Pattern: Clear Hallucinations: None Delusions: Not Present Thought Process: Distracted and Slowed Thinking Thought Content: positive for [place] and positive for Poverty of Content Judgement: Fair Diagnostics Vital Signs (24Hr): Vital Signs - 24 hr 03/04/24 20:00 03/05/24 07:55 Temperature 97.5 F 97.9 F Pulse Rate 75 66 Respiratory Rate 18 18 Blood Pressure 120/56 L 137/69 Pulse Oximetry 98 97 Oxygen Delivery Method Room Air Room Air BMI result Body Mass Index 32.1 Labs 01/06/24 07:28 03/02/24 08:01 Labs: Laboratory Results - last 48 hr 03/04/24 03/05/24 06:41 06:30 POC Glucose 117 H 112 Medications Medications Current Medications Acetaminophen (Acetaminophen 325 Mg Tablet) 650 mg PO Q6H PRN PRN Reason: Headache/Pain Mild Scale (1-3) Last Admin: 03/05/24 09:27 Dose: 650 mg Al Hydroxide/Mg Hydroxide (Magnesium Hydrox/Alum Hydrox 30 Ml Oral.Susp) 30 ml PO Q6H PRN PRN Reason: Heartburn/Nausea Allopurinol (Allopurinol 100 Mg Tablet) 100 mg PO DAILY [facility] Last Admin: 03/05/24 09:28 Dose: 100 mg Amlodipine Besylate (Amlodipine Besylate 2.5 Mg Tablet) 2.5 mg PO DAILY [facility]; Protocol Last Admin: 03/05/24 09:28 Dose: 2.5 mg Artificial Tears (Artificial Tears 15 Ml Drops) 2 drop EYE-BOTH Q4H PRN PRN Reason: Dry Eyes Last Admin: 03/04/24 10:40 Dose: 2 drop Atorvastatin Calcium (Atorvastatin Calcium 10 Mg Tablet) 10 mg PO BEDTIME [facility] Last Admin: 03/04/24 21:26 Dose: 10 mg Cyclobenzaprine HCl (Cyclobenzaprine Hcl 5 Mg Tablet) 5 mg PO TID PRN PRN Reason: back spasm Last Admin: 03/03/24 21:12 Dose: 5 mg Diphenoxylate HCl/Atropine (Diphenoxylate/Atrop 2.5/0.025 Tablet) 1 tab PO DAILY PRN PRN Reason: loose stools Last Admin: 02/09/24 10:32 Dose: 1 tab Donepezil HCl (Donepezil Hcl 5 Mg Tablet) 5 mg PO BEDTIME [facility] Last Admin: 03/04/24 21:27 Dose: 5 mg Escitalopram Oxalate (Escitalopram Oxalate 10 Mg Tablet) 10 mg PO DAILY [facility] Last Admin: 03/05/24 09:28 Dose: 10 mg Levothyroxine Sodium (Levothyroxine Sodium 88 Mcg Tablet) 88 mcg PO DAILY@0600 [facility] Last Admin: 03/05/24 06:04 Dose: 88 mcg Loperamide HCl (Loperamide Hcl 2 Mg Capsule) 2 mg PO Q4H PRN PRN Reason: Loose Stool Lorazepam (Lorazepam 0.5 Mg Tablet) 0.5 mg PO DAILY PRN PRN Reason: Anxiety Last Admin: 01/29/24 09:27 Dose: 0.5 mg Magnesium Hydroxide (Milk Of Magnesia 30 Ml Oral.Susp) 30 ml PO DAILY PRN PRN Reason: Constipation Memantine (Memantine Hcl 5 Mg Tablet) 5 mg PO DAILY [facility] Last Admin: 03/05/24 09:28 Dose: 5 mg Metformin HCl (Metformin Hcl 500 Mg Tablet) 500 mg PO BEDTIME [facility] Last Admin: 03/04/24 21:27 Dose: 500 mg Pt Own (Cyclosporine ([Restasis] 1 Drop)) 1 drop EYE-BOTH BID [facility] Last Admin: 03/05/24 09:27 Dose: 1 drop Olanzapine (Olanzapine 2.5 Mg Tablet) 2.5 mg PO Q4H PRN PRN Reason: agitation/acute psychosis Simethicone (Simethicone 80 Mg Tab.Chew) 80 mg PO QIDWMHS PRN PRN Reason: bloating Last Admin: 03/04/24 22:03 Dose: 80 mg Sitagliptin Phosphate (Sitagliptin Phosphate 100 Mg Tablet) 100 mg PO DAILY [facility] Last Admin: 03/05/24 09:28 Dose: 100 mg Trazodone HCl (Trazodone Hcl 50 Mg Tablet) 50 mg PO BEDTIME X1 PRN PRN Reason: Insomnia Last Admin: 02/05/24 21:08 Dose: 50 mg Vitamin D (Cholecalciferol (Vitamin D3) 25 Mcg Tablet) 25 mcg PO DAILY [facility] Last Admin: 03/05/24 09:28 Dose: 25 mcg Zolpidem Tartrate (Zolpidem Tartrate 5 Mg Tablet) 5 mg PO BEDTIME [facility] Last Admin: 03/04/24 21:27 Dose: 5 mg Allergies Allergies Allergy/AdvReac Type Severity Reaction Status Date / Time codeine Allergy Unknown Verified 12/07/23 20:27 Assessment & Plan Assessment & Plan (1) Dementia with psychotic disturbance: Status: Acute Code(s): F03.92 - Unspecified dementia, unspecified severity, with psychotic disturbance Plan Mrs. Jin is a 83 year-old woman with hx of vascular dementia with delusions of having an affair and some paranoid delusions. Some insight that this may not be the case but pt very much believes and takes action based on delusion despite here reporting that it may not be happening. It is unclear report from [facility] as to suicidal ideation. no indication of imminent harm to self or others, but collateral information is pending from family. May consider antipsychotic. PLAN 1. Continue with same treatment. 2. Waiting for placement. Reason for continued inpatient stay Substantial Risk for: inability to function, rapid decompensation and med/psych decompensation Time Spent With Patient Time: Total time managing care of this patient today __20__ minutes.
[2024-03-05 20:00] VITALS: BP 120/58; PULSE 79; RESP 18; TEMP 36.3; O2SAT 97
[2024-03-05] MEDS: Atorvastatin Calcium 10 MG TABLET PO (21:00)
[2024-03-05] MEDS: Zolpidem Tartrate 5 MG TABLET PO (21:01)
[2024-03-05] MEDS: Donepezil HCl 5 MG TABLET PO (21:01)
[2024-03-05] MEDS: metFORMIN HCl 500 MG TABLET PO (21:01)
[2024-03-05] MEDS: Simethicone 80 MG TAB.CHEW PO (21:02)
[2024-03-06] MEDS: Levothyroxine Sodium 88 MCG TABLET PO (06:20)
[2024-03-06 07:11] LABS: Glucose, Whole Blood 123 mg/dL (60-115)
[2024-03-06 07:55] VITALS: BP 151/74; PULSE 93; RESP 18; TEMP 36.6; O2SAT 95
[2024-03-06] MEDS: CYCLOSPORINE 1 EACH EYE-BOTH ×2 (08:27→20:37)
[2024-03-06] MEDS: amLODIPine Besylate 2.5 MG TABLET PO (08:28)
[2024-03-06] MEDS: SITagliptin Phosphate 100 MG TABLET PO (08:28)
[2024-03-06] MEDS: Escitalopram Oxalate 10 MG TABLET PO (08:28)
[2024-03-06] MEDS: Cholecalciferol (Vitamin D3) 25 MCG TABLET PO (08:28)
[2024-03-06] MEDS: Memantine HCl 5 MG TABLET PO (08:28)
[2024-03-06] MEDS: allopurinoL 100 MG TABLET PO (08:28)
--- NOTE | 2024-03-06 11:33 | P.PNPSI_ITS ---
Subjective Subjective Date of Service: 03/06/24 Reason For Visit: psychosis Subjective Notes: Conditional Voluntary Interim History: The nursing staff reported no changes in her mental status compliant with treatment. On interview the patient denies new symptoms, waiting for placement. Mental Status Exam Mental Status Exam Patient Appearance: Appropriate Patient Orientation: Person and Situation Level of Consciousness: Awake and Appropriate Patient Behavior: Guarded and Passive Mood Description: Withdrawn Affect Description: Constricted Patient Cognition Impaired: Yes Ability to Follow Directions: Good Speech Pattern: Clear Hallucinations: None Delusions: Not Present Thought Process: Distracted and Slowed Thinking Thought Content: positive for [place] and positive for Poverty of Content Judgement: Fair Diagnostics Vital Signs (24Hr): Vital Signs - 24 hr 03/05/24 20:00 03/06/24 07:55 Temperature 97.3 F 97.9 F Pulse Rate 79 93 Respiratory Rate 18 18 Blood Pressure 120/58 L 151/74 H Pulse Oximetry 97 95 Oxygen Delivery Method Room Air Room Air BMI result Body Mass Index 32.1 Labs 01/06/24 07:28 03/02/24 08:01 Labs: Laboratory Results - last 48 hr 03/05/24 03/06/24 06:30 06:53 POC Glucose 112 123 H Medications Medications Current Medications Acetaminophen (Acetaminophen 325 Mg Tablet) 650 mg PO Q6H PRN PRN Reason: Headache/Pain Mild Scale (1-3) Last Admin: 03/05/24 21:02 Dose: 650 mg Al Hydroxide/Mg Hydroxide (Magnesium Hydrox/Alum Hydrox 30 Ml Oral.Susp) 30 ml PO Q6H PRN PRN Reason: Heartburn/Nausea Allopurinol (Allopurinol 100 Mg Tablet) 100 mg PO DAILY [facility] Last Admin: 03/06/24 08:28 Dose: 100 mg Amlodipine Besylate (Amlodipine Besylate 2.5 Mg Tablet) 2.5 mg PO DAILY [facility]; Protocol Last Admin: 03/06/24 08:28 Dose: 2.5 mg Artificial Tears (Artificial Tears 15 Ml Drops) 2 drop EYE-BOTH Q4H PRN PRN Reason: Dry Eyes Last Admin: 03/04/24 10:40 Dose: 2 drop Atorvastatin Calcium (Atorvastatin Calcium 10 Mg Tablet) 10 mg PO BEDTIME [facility] Last Admin: 03/05/24 21:00 Dose: 10 mg Cyclobenzaprine HCl (Cyclobenzaprine Hcl 5 Mg Tablet) 5 mg PO TID PRN PRN Reason: back spasm Last Admin: 03/03/24 21:12 Dose: 5 mg Diphenoxylate HCl/Atropine (Diphenoxylate/Atrop 2.5/0.025 Tablet) 1 tab PO DAILY PRN PRN Reason: loose stools Last Admin: 02/09/24 10:32 Dose: 1 tab Donepezil HCl (Donepezil Hcl 5 Mg Tablet) 5 mg PO BEDTIME [facility] Last Admin: 03/05/24 21:01 Dose: 5 mg Escitalopram Oxalate (Escitalopram Oxalate 10 Mg Tablet) 10 mg PO DAILY [facility] Last Admin: 03/06/24 08:28 Dose: 10 mg Levothyroxine Sodium (Levothyroxine Sodium 88 Mcg Tablet) 88 mcg PO DAILY@0600 [facility] Last Admin: 03/06/24 06:20 Dose: 88 mcg Loperamide HCl (Loperamide Hcl 2 Mg Capsule) 2 mg PO Q4H PRN PRN Reason: Loose Stool Lorazepam (Lorazepam 0.5 Mg Tablet) 0.5 mg PO DAILY PRN PRN Reason: Anxiety Last Admin: 01/29/24 09:27 Dose: 0.5 mg Magnesium Hydroxide (Milk Of Magnesia 30 Ml Oral.Susp) 30 ml PO DAILY PRN PRN Reason: Constipation Memantine (Memantine Hcl 5 Mg Tablet) 5 mg PO DAILY [facility] Last Admin: 03/06/24 08:28 Dose: 5 mg Metformin HCl (Metformin Hcl 500 Mg Tablet) 500 mg PO BEDTIME [facility] Last Admin: 03/05/24 21:01 Dose: 500 mg Pt Own (Cyclosporine ([Restasis] 1 Drop)) 1 drop EYE-BOTH BID [facility] Last Admin: 03/06/24 08:27 Dose: 1 drop Olanzapine (Olanzapine 2.5 Mg Tablet) 2.5 mg PO Q4H PRN PRN Reason: agitation/acute psychosis Simethicone (Simethicone 80 Mg Tab.Chew) 80 mg PO QIDWMHS PRN PRN Reason: bloating Last Admin: 03/05/24 21:02 Dose: 80 mg Sitagliptin Phosphate (Sitagliptin Phosphate 100 Mg Tablet) 100 mg PO DAILY [facility] Last Admin: 03/06/24 08:28 Dose: 100 mg Trazodone HCl (Trazodone Hcl 50 Mg Tablet) 50 mg PO BEDTIME [facility] PRN PRN Reason: Insomnia Last Admin: 02/05/24 21:08 Dose: 50 mg Vitamin D (Cholecalciferol (Vitamin D3) 25 Mcg Tablet) 25 mcg PO DAILY [facility] Last Admin: 03/06/24 08:28 Dose: 25 mcg Zolpidem Tartrate (Zolpidem Tartrate 5 Mg Tablet) 5 mg PO BEDTIME [facility] Last Admin: 03/05/24 21:01 Dose: 5 mg Allergies Allergies Allergy/AdvReac Type Severity Reaction Status Date / Time codeine Allergy Unknown Verified 12/07/23 20:27 Assessment & Plan Assessment & Plan (1) Dementia with psychotic disturbance: Status: Acute Code(s): F03.92 - Unspecified dementia, unspecified severity, with psychotic disturbance Plan Mrs. Jin is a 83 year-old woman with hx of vascular dementia with delusions of having an affair and some paranoid delusions. Some insight that this may not be the case but pt very much believes and takes action based on delusion despite here reporting that it may not be happening. It is unclear report from [facility] as to suicidal ideation. no indication of imminent harm to self or others, but collateral information is pending from family. May consider antipsychotic. PLAN 1. Continue with same treatment. 2. Waiting for placement. Reason for continued inpatient stay Substantial Risk for: inability to function, rapid decompensation and med/psych decompensation Time Spent With Patient Time: Total time managing care of this patient today __20__ minutes.
[2024-03-06 20:00] VITALS: BP 136/60; PULSE 70; RESP 18; TEMP 36.8; O2SAT 97
[2024-03-06] MEDS: Donepezil HCl 5 MG TABLET PO (20:37)
[2024-03-06] MEDS: Atorvastatin Calcium 10 MG TABLET PO (20:37)
[2024-03-06] MEDS: metFORMIN HCl 500 MG TABLET PO (20:37)
[2024-03-06] MEDS: Zolpidem Tartrate 5 MG TABLET PO (20:38)
[2024-03-06] MEDS: Simethicone 80 MG TAB.CHEW PO (20:38)
[2024-03-06] MEDS: Acetaminophen 325 MG TABLET 650 MG PO (20:38)
[2024-03-07] MEDS: Levothyroxine Sodium 88 MCG TABLET PO (06:15)
[2024-03-07 06:44] LABS: Glucose, Whole Blood 122 mg/dL (60-115)
[2024-03-07 07:00] VITALS: BMI 31.8
[2024-03-07] MEDS: CYCLOSPORINE 1 EACH EYE-BOTH ×2 (08:43→20:27)
[2024-03-07] MEDS: Acetaminophen 325 MG TABLET 650 MG PO ×2 (08:44→20:36)
[2024-03-07] MEDS: Memantine HCl 5 MG TABLET PO (08:44)
[2024-03-07 08:45] VITALS: BP 134/62; PULSE 58; RESP 18; TEMP 36.6; O2SAT 97
[2024-03-07] MEDS: allopurinoL 100 MG TABLET PO (08:45)
[2024-03-07] MEDS: Cholecalciferol (Vitamin D3) 25 MCG TABLET PO (08:45)
[2024-03-07 08:46] VITALS: BP 134/62
[2024-03-07] MEDS: Escitalopram Oxalate 10 MG TABLET PO (08:46)
[2024-03-07] MEDS: SITagliptin Phosphate 100 MG TABLET PO (08:46)
[2024-03-07] MEDS: amLODIPine Besylate 2.5 MG TABLET PO (08:46)
--- NOTE | 2024-03-07 13:49 | HO.PSYCHPN ---
Subjective Subjective Date of Service: 03/07/24 Reason For Visit: psychosis Subjective Notes: Conditional Voluntary Interim History: The nursing staff reported no changes in her mental status. On interview the patient denies new symptoms, waiting for placement The social science teacher reported that all the paperwork was already filed waiting for financial clearance. Mental Status Exam Mental Status Exam Patient Appearance: Appropriate Patient Orientation: Person and Situation Level of Consciousness: Awake and Appropriate Patient Behavior: Passive Mood Description: Calm Affect Description: Constricted Patient Cognition Impaired: Yes Ability to Follow Directions: Good Speech Pattern: Clear Hallucinations: None Delusions: Not Present Thought Process: Distracted and Slowed Thinking Thought Content: positive for [place] and positive for Poverty of Content Judgement: Fair Diagnostics Vital Signs (24Hr): Vital Signs - 24 hr 03/06/24 20:00 03/07/24 08:45 03/07/24 08:46 Temperature 98.2 F 97.8 F Pulse Rate 70 58 Respiratory Rate 18 18 Blood Pressure 136/60 134/62 134/62 Pulse Oximetry 97 97 Oxygen Delivery Method Room Air Room Air BMI result Body Mass Index 32.1 Labs 01/06/24 07:28 03/02/24 08:01 Labs: Laboratory Results - last 48 hr 03/06/24 03/07/24 06:53 06:35 POC Glucose 123 H 122 H Medications Medications Current Medications Acetaminophen (Acetaminophen 325 Mg Tablet) 650 mg PO Q6H PRN PRN Reason: Headache/Pain Mild Scale (1-3) Last Admin: 03/07/24 08:44 Dose: 650 mg Al Hydroxide/Mg Hydroxide (Magnesium Hydrox/Alum Hydrox 30 Ml Oral.Susp) 30 ml PO Q6H PRN PRN Reason: Heartburn/Nausea Allopurinol (Allopurinol 100 Mg Tablet) 100 mg PO DAILY [facility] Last Admin: 03/07/24 08:45 Dose: 100 mg Amlodipine Besylate (Amlodipine Besylate 2.5 Mg Tablet) 2.5 mg PO DAILY [facility]; Protocol Last Admin: 03/07/24 08:46 Dose: 2.5 mg Artificial Tears (Artificial Tears 15 Ml Drops) 2 drop EYE-BOTH Q4H PRN PRN Reason: Dry Eyes Last Admin: 03/04/24 10:40 Dose: 2 drop Atorvastatin Calcium (Atorvastatin Calcium 10 Mg Tablet) 10 mg PO BEDTIME [facility] Last Admin: 03/06/24 20:37 Dose: 10 mg Cyclobenzaprine HCl (Cyclobenzaprine Hcl 5 Mg Tablet) 5 mg PO TID PRN PRN Reason: back spasm Last Admin: 03/03/24 21:12 Dose: 5 mg Diphenoxylate HCl/Atropine (Diphenoxylate/Atrop 2.5/0.025 Tablet) 1 tab PO DAILY PRN PRN Reason: loose stools Last Admin: 02/09/24 10:32 Dose: 1 tab Donepezil HCl (Donepezil Hcl 5 Mg Tablet) 5 mg PO BEDTIME [facility] Last Admin: 03/06/24 20:37 Dose: 5 mg Escitalopram Oxalate (Escitalopram Oxalate 10 Mg Tablet) 10 mg PO DAILY [facility] Last Admin: 03/07/24 08:46 Dose: 10 mg Levothyroxine Sodium (Levothyroxine Sodium 88 Mcg Tablet) 88 mcg PO DAILY@0600 [facility] Last Admin: 03/07/24 06:15 Dose: 88 mcg Loperamide HCl (Loperamide Hcl 2 Mg Capsule) 2 mg PO Q4H PRN PRN Reason: Loose Stool Lorazepam (Lorazepam 0.5 Mg Tablet) 0.5 mg PO DAILY PRN PRN Reason: Anxiety Last Admin: 01/29/24 09:27 Dose: 0.5 mg Magnesium Hydroxide (Milk Of Magnesia 30 Ml Oral.Susp) 30 ml PO DAILY PRN PRN Reason: Constipation Memantine (Memantine Hcl 5 Mg Tablet) 5 mg PO DAILY [facility] Last Admin: 03/07/24 08:44 Dose: 5 mg Metformin HCl (Metformin Hcl 500 Mg Tablet) 500 mg PO BEDTIME [facility] Last Admin: 03/06/24 20:37 Dose: 500 mg Pt Own (Cyclosporine ([Restasis] 1 Drop)) 1 drop EYE-BOTH BID [facility] Last Admin: 03/07/24 08:43 Dose: 1 drop Olanzapine (Olanzapine 2.5 Mg Tablet) 2.5 mg PO Q4H PRN PRN Reason: agitation/acute psychosis Simethicone (Simethicone 80 Mg Tab.Chew) 80 mg PO QIDWMHS PRN PRN Reason: bloating Last Admin: 03/06/24 20:38 Dose: 80 mg Sitagliptin Phosphate (Sitagliptin Phosphate 100 Mg Tablet) 100 mg PO DAILY [facility] Last Admin: 03/07/24 08:46 Dose: 100 mg Trazodone HCl (Trazodone Hcl 50 Mg Tablet) 50 mg PO BEDTIME [facility] PRN PRN Reason: Insomnia Last Admin: 02/05/24 21:08 Dose: 50 mg Vitamin D (Cholecalciferol (Vitamin D3) 25 Mcg Tablet) 25 mcg PO DAILY [facility] Last Admin: 03/07/24 08:45 Dose: 25 mcg Zolpidem Tartrate (Zolpidem Tartrate 5 Mg Tablet) 5 mg PO BEDTIME [facility] Last Admin: 03/06/24 20:38 Dose: 5 mg Allergies Allergies Allergy/AdvReac Type Severity Reaction Status Date / Time codeine Allergy Unknown Verified 12/07/23 20:27 Assessment & Plan Assessment & Plan (1) Dementia with psychotic disturbance: Status: Acute Code(s): F03.92 - Unspecified dementia, unspecified severity, with psychotic disturbance Plan Mrs. Jin is a 83 year-old woman with hx of vascular dementia with delusions of having an affair and some paranoid delusions. Some insight that this may not be the case but pt very much believes and takes action based on delusion despite here reporting that it may not be happening. It is unclear report from [facility] as to suicidal ideation. no indication of imminent harm to self or others, but collateral information is pending from family. May consider antipsychotic. PLAN 1. Continue with same treatment. 2. Waiting for placement. Reason for continued inpatient stay Substantial Risk for: inability to function, rapid decompensation and med/psych decompensation Time Spent With Patient Time: Total time managing care of this patient today __20__ minutes.
[2024-03-07 20:00] VITALS: BP 130/60; PULSE 86; RESP 16; TEMP 36.3; O2SAT 96
[2024-03-07] MEDS: Zolpidem Tartrate 5 MG TABLET PO (20:26)
[2024-03-07] MEDS: Atorvastatin Calcium 10 MG TABLET PO (20:26)
[2024-03-07] MEDS: Donepezil HCl 5 MG TABLET PO (20:26)
[2024-03-07] MEDS: metFORMIN HCl 500 MG TABLET PO (20:26)
[2024-03-08 06:56] LABS: Glucose, Whole Blood 122 mg/dL (60-115)
[2024-03-08 08:18] VITALS: BP 130/61; PULSE 78; RESP 18; TEMP 36.1; O2SAT 98
[2024-03-08] MEDS: Memantine HCl 5 MG TABLET PO (08:22)
[2024-03-08] MEDS: Acetaminophen 325 MG TABLET 650 MG PO (08:22)
[2024-03-08] MEDS: Escitalopram Oxalate 10 MG TABLET PO (08:23)
[2024-03-08] MEDS: SITagliptin Phosphate 100 MG TABLET PO (08:23)
[2024-03-08] MEDS: Cholecalciferol (Vitamin D3) 25 MCG TABLET PO (08:23)
[2024-03-08] MEDS: amLODIPine Besylate 2.5 MG TABLET PO (08:23)
[2024-03-08] MEDS: allopurinoL 100 MG TABLET PO (08:23)
[2024-03-08] MEDS: CYCLOSPORINE 1 EACH EYE-BOTH ×2 (08:27→20:09)
--- NOTE | 2024-03-08 11:00 | HO.PSYCHPN ---
Subjective Subjective Date of Service: 03/08/24 Reason For Visit: psychosis Subjective Notes: Conditional Voluntary Interim History: The nursing staff reported no changes in her mental status cooperative and pleasant. She slept well. On interview the patient denies new symptoms, waiting for placement. Mental Status Exam Mental Status Exam Patient Appearance: Well Grooomed and Appropriate Patient Orientation: Person and Situation Level of Consciousness: Awake Patient Behavior: Guarded and Passive Mood Description: Withdrawn Affect Description: Constricted Patient Cognition Impaired: Yes Ability to Follow Directions: Good Speech Pattern: Clear Hallucinations: None Delusions: Not Present Thought Process: Distracted and Slowed Thinking Thought Content: positive for [place] and positive for Poverty of Content Judgement: Fair Diagnostics Vital Signs (24Hr): Vital Signs - 24 hr 03/07/24 20:00 03/08/24 08:18 Temperature 97.4 F 96.9 F Pulse Rate 86 78 Respiratory Rate 16 18 Blood Pressure 130/60 130/61 Pulse Oximetry 96 98 Oxygen Delivery Method Room Air Room Air BMI result Body Mass Index 31.8 Labs 01/06/24 07:28 03/02/24 08:01 Labs: Laboratory Results - last 48 hr 03/07/24 03/08/24 06:35 06:36 POC Glucose 122 H 122 H Medications Medications Current Medications Acetaminophen (Acetaminophen 325 Mg Tablet) 650 mg PO Q6H PRN PRN Reason: Headache/Pain Mild Scale (1-3) Last Admin: 03/08/24 08:22 Dose: 650 mg Al Hydroxide/Mg Hydroxide (Magnesium Hydrox/Alum Hydrox 30 Ml Oral.Susp) 30 ml PO Q6H PRN PRN Reason: Heartburn/Nausea Allopurinol (Allopurinol 100 Mg Tablet) 100 mg PO DAILY [facility] Last Admin: 03/08/24 08:23 Dose: 100 mg Amlodipine Besylate (Amlodipine Besylate 2.5 Mg Tablet) 2.5 mg PO DAILY [facility]; Protocol Last Admin: 03/08/24 08:23 Dose: 2.5 mg Artificial Tears (Artificial Tears 15 Ml Drops) 2 drop EYE-BOTH Q4H PRN PRN Reason: Dry Eyes Last Admin: 03/04/24 10:40 Dose: 2 drop Atorvastatin Calcium (Atorvastatin Calcium 10 Mg Tablet) 10 mg PO BEDTIME [facility] Last Admin: 03/07/24 20:26 Dose: 10 mg Cyclobenzaprine HCl (Cyclobenzaprine Hcl 5 Mg Tablet) 5 mg PO TID PRN PRN Reason: back spasm Last Admin: 03/03/24 21:12 Dose: 5 mg Diphenoxylate HCl/Atropine (Diphenoxylate/Atrop 2.5/0.025 Tablet) 1 tab PO DAILY PRN PRN Reason: loose stools Last Admin: 02/09/24 10:32 Dose: 1 tab Donepezil HCl (Donepezil Hcl 5 Mg Tablet) 5 mg PO BEDTIME [facility] Last Admin: 03/07/24 20:26 Dose: 5 mg Escitalopram Oxalate (Escitalopram Oxalate 10 Mg Tablet) 10 mg PO DAILY [facility] Last Admin: 03/08/24 08:23 Dose: 10 mg Levothyroxine Sodium (Levothyroxine Sodium 88 Mcg Tablet) 88 mcg PO DAILY@0600 [facility] Loperamide HCl (Loperamide Hcl 2 Mg Capsule) 2 mg PO Q4H PRN PRN Reason: Loose Stool Lorazepam (Lorazepam 0.5 Mg Tablet) 0.5 mg PO DAILY PRN PRN Reason: Anxiety Last Admin: 01/29/24 09:27 Dose: 0.5 mg Magnesium Hydroxide (Milk Of Magnesia 30 Ml Oral.Susp) 30 ml PO DAILY PRN PRN Reason: Constipation Memantine (Memantine Hcl 5 Mg Tablet) 5 mg PO DAILY [facility] Last Admin: 03/08/24 08:22 Dose: 5 mg Metformin HCl (Metformin Hcl 500 Mg Tablet) 500 mg PO BEDTIME [facility] Last Admin: 03/07/24 20:26 Dose: 500 mg Pt Own (Cyclosporine ([Restasis] 1 Drop)) 1 drop EYE-BOTH BID [facility] Last Admin: 03/08/24 08:27 Dose: 1 drop Olanzapine (Olanzapine 2.5 Mg Tablet) 2.5 mg PO Q4H PRN PRN Reason: agitation/acute psychosis Simethicone (Simethicone 80 Mg Tab.Chew) 80 mg PO QIDWMHS PRN PRN Reason: bloating Last Admin: 03/06/24 20:38 Dose: 80 mg Sitagliptin Phosphate (Sitagliptin Phosphate 100 Mg Tablet) 100 mg PO DAILY [facility] Last Admin: 03/08/24 08:23 Dose: 100 mg Trazodone HCl (Trazodone Hcl 50 Mg Tablet) 50 mg PO BEDTIME MRX1 PRN PRN Reason: Insomnia Last Admin: 02/05/24 21:08 Dose: 50 mg Vitamin D (Cholecalciferol (Vitamin D3) 25 Mcg Tablet) 25 mcg PO DAILY [facility] Last Admin: 03/08/24 08:23 Dose: 25 mcg Zolpidem Tartrate (Zolpidem Tartrate 5 Mg Tablet) 5 mg PO BEDTIME [facility] Last Admin: 03/07/24 20:26 Dose: 5 mg Allergies Allergies Allergy/AdvReac Type Severity Reaction Status Date / Time codeine Allergy Unknown Verified 12/07/23 20:27 Assessment & Plan Assessment & Plan (1) Dementia with psychotic disturbance: Status: Acute Code(s): F03.92 - Unspecified dementia, unspecified severity, with psychotic disturbance Plan Mrs. Jin is a 83 year-old woman with hx of vascular dementia with delusions of having an affair and some paranoid delusions. Some insight that this may not be the case but pt very much believes and takes action based on delusion despite here reporting that it may not be happening. It is unclear report from [facility] as to suicidal ideation. no indication of imminent harm to self or others, but collateral information is pending from family. May consider antipsychotic. PLAN 1. Continue with same treatment. 2. Waiting for placement. Reason for continued inpatient stay Substantial Risk for: inability to function, rapid decompensation and med/psych decompensation Time Spent With Patient Time: Total time managing care of this patient today __20__ minutes.
[2024-03-08 19:44] VITALS: BP 128/59; PULSE 83; RESP 18; TEMP 36.2; O2SAT 98
[2024-03-08] MEDS: Atorvastatin Calcium 10 MG TABLET PO (20:09)
[2024-03-08] MEDS: Zolpidem Tartrate 5 MG TABLET PO (20:09)
[2024-03-08] MEDS: Donepezil HCl 5 MG TABLET PO (20:09)
[2024-03-08] MEDS: metFORMIN HCl 500 MG TABLET PO (20:09)
[2024-03-08] MEDS: Simethicone 80 MG TAB.CHEW PO (20:22)
[2024-03-09] MEDS: Levothyroxine Sodium 88 MCG TABLET PO (06:17)
[2024-03-09 06:22] LABS: Glucose, Whole Blood 136 mg/dL (60-115)
--- NOTE | 2024-03-09 06:34 | P.PNPSI_ITS ---
Subjective Subjective Date of Service: 03/09/24 Reason For Visit: psychosis Subjective Notes: Conditional Voluntary Interim History: The nursing staff reported the patient had been compliant with treatment, no changes in her mental status. On interview the patient denies new symptoms, waiting for placement. Mental Status Exam Mental Status Exam Patient Appearance: Well Grooomed and Appropriate Patient Orientation: Person and Situation Level of Consciousness: Awake and Appropriate Patient Behavior: Guarded and Passive Mood Description: Withdrawn Affect Description: Constricted Patient Cognition Impaired: Yes Ability to Follow Directions: Good Speech Pattern: Clear Hallucinations: None Delusions: Not Present Thought Process: Distracted and Slowed Thinking Thought Content: positive for [place] and positive for Poverty of Content Judgement: Fair Diagnostics Vital Signs (24Hr): Vital Signs - 24 hr 03/08/24 08:18 03/08/24 19:44 Temperature 96.9 F 97.2 F Pulse Rate 78 83 Respiratory Rate 18 18 Blood Pressure 130/61 128/59 L Pulse Oximetry 98 98 Oxygen Delivery Method Room Air Room Air BMI result Body Mass Index 31.8 Labs 01/06/24 07:28 03/09/24 07:03 Labs: Laboratory Results - last 48 hr 03/07/24 03/08/24 03/09/24 06:35 06:36 06:16 POC Glucose 122 H 122 H 136 H Medications Medications Current Medications Acetaminophen (Acetaminophen 325 Mg Tablet) 650 mg PO Q6H PRN PRN Reason: Headache/Pain Mild Scale (1-3) Last Admin: 03/08/24 08:22 Dose: 650 mg Al Hydroxide/Mg Hydroxide (Magnesium Hydrox/Alum Hydrox 30 Ml Oral.Susp) 30 ml PO Q6H PRN PRN Reason: Heartburn/Nausea Allopurinol (Allopurinol 100 Mg Tablet) 100 mg PO DAILY [facility] Last Admin: 03/08/24 08:23 Dose: 100 mg Amlodipine Besylate (Amlodipine Besylate 2.5 Mg Tablet) 2.5 mg PO DAILY [facility]; Protocol Last Admin: 03/08/24 08:23 Dose: 2.5 mg Artificial Tears (Artificial Tears 15 Ml Drops) 2 drop EYE-BOTH Q4H PRN PRN Reason: Dry Eyes Last Admin: 03/04/24 10:40 Dose: 2 drop Atorvastatin Calcium (Atorvastatin Calcium 10 Mg Tablet) 10 mg PO BEDTIME [facility] Last Admin: 03/08/24 20:09 Dose: 10 mg Cyclobenzaprine HCl (Cyclobenzaprine Hcl 5 Mg Tablet) 5 mg PO TID PRN PRN Reason: back spasm Last Admin: 03/03/24 21:12 Dose: 5 mg Diphenoxylate HCl/Atropine (Diphenoxylate/Atrop 2.5/0.025 Tablet) 1 tab PO DAILY PRN PRN Reason: loose stools Last Admin: 02/09/24 10:32 Dose: 1 tab Donepezil HCl (Donepezil Hcl 5 Mg Tablet) 5 mg PO BEDTIME [facility] Last Admin: 03/08/24 20:09 Dose: 5 mg Escitalopram Oxalate (Escitalopram Oxalate 10 Mg Tablet) 10 mg PO DAILY [facility] Last Admin: 03/08/24 08:23 Dose: 10 mg Levothyroxine Sodium (Levothyroxine Sodium 88 Mcg Tablet) 88 mcg PO DAILY@0600 [facility] Last Admin: 03/09/24 06:17 Dose: 88 mcg Loperamide HCl (Loperamide Hcl 2 Mg Capsule) 2 mg PO Q4H PRN PRN Reason: Loose Stool Lorazepam (Lorazepam 0.5 Mg Tablet) 0.5 mg PO DAILY PRN PRN Reason: Anxiety Last Admin: 01/29/24 09:27 Dose: 0.5 mg Magnesium Hydroxide (Milk Of Magnesia 30 Ml Oral.Susp) 30 ml PO DAILY PRN PRN Reason: Constipation Memantine (Memantine Hcl 5 Mg Tablet) 5 mg PO DAILY [facility] Last Admin: 03/08/24 08:22 Dose: 5 mg Metformin HCl (Metformin Hcl 500 Mg Tablet) 500 mg PO BEDTIME [facility] Last Admin: 03/08/24 20:09 Dose: 500 mg Pt Own (Cyclosporine ([Restasis] 1 Drop)) 1 drop EYE-BOTH BID [facility] Last Admin: 03/08/24 20:09 Dose: 1 drop Olanzapine (Olanzapine 2.5 Mg Tablet) 2.5 mg PO Q4H PRN PRN Reason: agitation/acute psychosis Simethicone (Simethicone 80 Mg Tab.Chew) 80 mg PO QIDWMHS PRN PRN Reason: bloating Last Admin: 03/08/24 20:22 Dose: 80 mg Sitagliptin Phosphate (Sitagliptin Phosphate 100 Mg Tablet) 100 mg PO DAILY [facility] Last Admin: 03/08/24 08:23 Dose: 100 mg Trazodone HCl (Trazodone Hcl 50 Mg Tablet) 50 mg PO BEDTIME [facility] PRN PRN Reason: Insomnia Last Admin: 02/05/24 21:08 Dose: 50 mg Vitamin D (Cholecalciferol (Vitamin D3) 25 Mcg Tablet) 25 mcg PO DAILY [facility] Last Admin: 03/08/24 08:23 Dose: 25 mcg Zolpidem Tartrate (Zolpidem Tartrate 5 Mg Tablet) 5 mg PO BEDTIME [facility] Last Admin: 03/08/24 20:09 Dose: 5 mg Allergies Allergies Allergy/AdvReac Type Severity Reaction Status Date / Time codeine Allergy Unknown Verified 12/07/23 20:27 Assessment & Plan Assessment & Plan (1) Dementia with psychotic disturbance: Status: Acute Code(s): F03.92 - Unspecified dementia, unspecified severity, with psychotic disturbance Plan Mrs. Jin is a 83 year-old woman with hx of vascular dementia with delusions of having an affair and some paranoid delusions. Some insight that this may not be the case but pt very much believes and takes action based on delusion despite here reporting that it may not be happening. It is unclear report from [facility] as to suicidal ideation. no indication of imminent harm to self or others, but collateral information is pending from family. May consider antipsychotic. PLAN 1. Continue with same treatment. 2. Waiting for placement. Reason for continued inpatient stay Substantial Risk for: inability to function, rapid decompensation and med/psych decompensation Time Spent With Patient Time: Total time managing care of this patient today __20__ minutes.
[2024-03-09 07:32] LABS: Creatinine Clr Calc Pharmacy 32.7; Estimated Glomerular Filt Rate 36
[2024-03-09 11:06] VITALS: BP 112/53; PULSE 72; RESP 15; TEMP 36.9; O2SAT 95
[2024-03-09] MEDS: CYCLOSPORINE 1 EACH EYE-BOTH ×2 (11:07→20:17)
[2024-03-09] MEDS: Escitalopram Oxalate 10 MG TABLET PO (11:08)
[2024-03-09] MEDS: allopurinoL 100 MG TABLET PO (11:08)
[2024-03-09] MEDS: Cholecalciferol (Vitamin D3) 25 MCG TABLET PO (11:08)
[2024-03-09] MEDS: SITagliptin Phosphate 100 MG TABLET PO (11:08)
[2024-03-09] MEDS: amLODIPine Besylate 2.5 MG TABLET PO (11:09)
[2024-03-09] MEDS: Memantine HCl 5 MG TABLET PO (11:09)
[2024-03-09] MEDS: Acetaminophen 325 MG TABLET 650 MG PO ×2 (11:34→20:17)
[2024-03-09] MEDS: Simethicone 80 MG TAB.CHEW PO ×2 (11:34→20:18)
[2024-03-09 20:00] VITALS: BP 122/66; PULSE 79; RESP 16; TEMP 36.4; O2SAT 95
[2024-03-09] MEDS: Atorvastatin Calcium 10 MG TABLET PO (20:18)
[2024-03-09] MEDS: metFORMIN HCl 500 MG TABLET PO (20:18)
[2024-03-09] MEDS: Zolpidem Tartrate 5 MG TABLET PO (20:18)
[2024-03-09] MEDS: Donepezil HCl 5 MG TABLET PO (20:18)
[2024-03-10] MEDS: Levothyroxine Sodium 88 MCG TABLET PO (05:34)
[2024-03-10 05:43] LABS: Glucose, Whole Blood 111 mg/dL (60-115)
[2024-03-10 08:00] VITALS: BP 121/58; PULSE 66; RESP 16; TEMP 36.2; O2SAT 98
[2024-03-10] MEDS: Cholecalciferol (Vitamin D3) 25 MCG TABLET PO (09:08)
[2024-03-10] MEDS: Memantine HCl 5 MG TABLET PO (09:08)
[2024-03-10] MEDS: Escitalopram Oxalate 10 MG TABLET PO (09:08)
[2024-03-10] MEDS: SITagliptin Phosphate 100 MG TABLET PO (09:08)
[2024-03-10] MEDS: Simethicone 80 MG TAB.CHEW PO ×2 (09:08→20:05)
[2024-03-10] MEDS: CYCLOSPORINE 1 EACH EYE-BOTH ×2 (09:08→20:05)
[2024-03-10] MEDS: allopurinoL 100 MG TABLET PO (09:08)
[2024-03-10] MEDS: amLODIPine Besylate 2.5 MG TABLET PO (09:08)
[2024-03-10] MEDS: Acetaminophen 325 MG TABLET 650 MG PO ×2 (09:08→20:04)
--- NOTE | 2024-03-10 11:25 | P.PNPSI_ITS ---
Subjective Subjective Date of Service: 03/10/24 Reason For Visit: psychosis Subjective Notes: Conditional Voluntary Interim History: The nursing staff reported no changes in her mental status compliant with treatment. On interview the patient denies new symptoms, waiting for placement Mental Status Exam Mental Status Exam Patient Appearance: Appropriate Patient Orientation: Person and Situation Level of Consciousness: Awake and Appropriate Patient Behavior: Guarded and Passive Mood Description: Calm Affect Description: Constricted Patient Cognition Impaired: Yes Ability to Follow Directions: Good Speech Pattern: Clear Hallucinations: None Delusions: Not Present Thought Process: Distracted and Slowed Thinking Thought Content: positive for [place] and positive for Poverty of Content Judgement: Fair Diagnostics Vital Signs (24Hr): Vital Signs - 24 hr 03/09/24 20:00 03/10/24 08:00 Temperature 97.6 F 97.2 F Pulse Rate 79 66 Respiratory Rate 16 16 Blood Pressure 122/66 121/58 L Pulse Oximetry 95 98 Oxygen Delivery Method Room Air Room Air BMI result Body Mass Index 31.8 Labs 01/06/24 07:28 03/09/24 07:03 Labs: Laboratory Results - last 48 hr 03/09/24 03/09/24 03/10/24 06:16 07:03 05:37 Creatinine 1.39 Estim Creat Clear Calc 32.7 Estimated GFR 36 POC Glucose 136 H 111 Medications Medications Current Medications Acetaminophen (Acetaminophen 325 Mg Tablet) 650 mg PO Q6H PRN PRN Reason: Headache/Pain Mild Scale (1-3) Last Admin: 03/10/24 09:08 Dose: 650 mg Al Hydroxide/Mg Hydroxide (Magnesium Hydrox/Alum Hydrox 30 Ml Oral.Susp) 30 ml PO Q6H PRN PRN Reason: Heartburn/Nausea Allopurinol (Allopurinol 100 Mg Tablet) 100 mg PO DAILY [facility] Last Admin: 03/10/24 09:08 Dose: 100 mg Amlodipine Besylate (Amlodipine Besylate 2.5 Mg Tablet) 2.5 mg PO DAILY [facility]; Protocol Last Admin: 03/10/24 09:08 Dose: 2.5 mg Artificial Tears (Artificial Tears 15 Ml Drops) 2 drop EYE-BOTH Q4H PRN PRN Reason: Dry Eyes Last Admin: 03/04/24 10:40 Dose: 2 drop Atorvastatin Calcium (Atorvastatin Calcium 10 Mg Tablet) 10 mg PO BEDTIME [facility] Last Admin: 03/09/24 20:18 Dose: 10 mg Cyclobenzaprine HCl (Cyclobenzaprine Hcl 5 Mg Tablet) 5 mg PO TID PRN PRN Reason: back spasm Last Admin: 03/03/24 21:12 Dose: 5 mg Diphenoxylate HCl/Atropine (Diphenoxylate/Atrop 2.5/0.025 Tablet) 1 tab PO DAILY PRN PRN Reason: loose stools Last Admin: 02/09/24 10:32 Dose: 1 tab Donepezil HCl (Donepezil Hcl 5 Mg Tablet) 5 mg PO BEDTIME [facility] Last Admin: 03/09/24 20:18 Dose: 5 mg Escitalopram Oxalate (Escitalopram Oxalate 10 Mg Tablet) 10 mg PO DAILY [facility] Last Admin: 03/10/24 09:08 Dose: 10 mg Levothyroxine Sodium (Levothyroxine Sodium 88 Mcg Tablet) 88 mcg PO DAILY@0600 [facility] Last Admin: 03/10/24 05:34 Dose: 88 mcg Loperamide HCl (Loperamide Hcl 2 Mg Capsule) 2 mg PO Q4H PRN PRN Reason: Loose Stool Lorazepam (Lorazepam 0.5 Mg Tablet) 0.5 mg PO DAILY PRN PRN Reason: Anxiety Last Admin: 01/29/24 09:27 Dose: 0.5 mg Magnesium Hydroxide (Milk Of Magnesia 30 Ml Oral.Susp) 30 ml PO DAILY PRN PRN Reason: Constipation Memantine (Memantine Hcl 5 Mg Tablet) 5 mg PO DAILY [facility] Last Admin: 03/10/24 09:08 Dose: 5 mg Metformin HCl (Metformin Hcl 500 Mg Tablet) 500 mg PO BEDTIME [facility] Last Admin: 03/09/24 20:18 Dose: 500 mg Pt Own (Cyclosporine ([Restasis] 1 Drop)) 1 drop EYE-BOTH BID [facility] Last Admin: 03/10/24 09:08 Dose: 1 drop Olanzapine (Olanzapine 2.5 Mg Tablet) 2.5 mg PO Q4H PRN PRN Reason: agitation/acute psychosis Simethicone (Simethicone 80 Mg Tab.Chew) 80 mg PO QIDWMHS PRN PRN Reason: bloating Last Admin: 03/10/24 09:08 Dose: 80 mg Sitagliptin Phosphate (Sitagliptin Phosphate 100 Mg Tablet) 100 mg PO DAILY [facility] Last Admin: 03/10/24 09:08 Dose: 100 mg Trazodone HCl (Trazodone Hcl 50 Mg Tablet) 50 mg PO BEDTIME MRX1 PRN PRN Reason: Insomnia Last Admin: 02/05/24 21:08 Dose: 50 mg Vitamin D (Cholecalciferol (Vitamin D3) 25 Mcg Tablet) 25 mcg PO DAILY [facility] Last Admin: 03/10/24 09:08 Dose: 25 mcg Zolpidem Tartrate (Zolpidem Tartrate 5 Mg Tablet) 5 mg PO BEDTIME [facility] Last Admin: 03/09/24 20:18 Dose: 5 mg Allergies Allergies Allergy/AdvReac Type Severity Reaction Status Date / Time codeine Allergy Unknown Verified 12/07/23 20:27 Assessment & Plan Assessment & Plan (1) Dementia with psychotic disturbance: Status: Acute Code(s): F03.92 - Unspecified dementia, unspecified severity, with psychotic disturbance Plan Mrs. Jin is a 83 year-old woman with hx of vascular dementia with delusions of having an affair and some paranoid delusions. Some insight that this may not be the case but pt very much believes and takes action based on delusion despite here reporting that it may not be happening. It is unclear report from [facility] as to suicidal ideation. no indication of imminent harm to self or others, but collateral information is pending from family. May consider antipsychotic. PLAN 1. Continue with same treatment. 2. Waiting for placement. Reason for continued inpatient stay Substantial Risk for: inability to function, rapid decompensation and med/psych decompensation Time Spent With Patient Time: Total time managing care of this patient today _20___ minutes.
[2024-03-10 20:00] VITALS: BP 137/58; PULSE 77; TEMP 36.3; O2SAT 95
[2024-03-10] MEDS: Atorvastatin Calcium 10 MG TABLET PO (20:04)
[2024-03-10] MEDS: Zolpidem Tartrate 5 MG TABLET PO (20:04)
[2024-03-10] MEDS: Donepezil HCl 5 MG TABLET PO (20:04)
[2024-03-10] MEDS: metFORMIN HCl 500 MG TABLET PO (20:04)
[2024-03-11] MEDS: Levothyroxine Sodium 88 MCG TABLET PO (05:19)
[2024-03-11 06:45] LABS: Glucose, Whole Blood 138 mg/dL (60-115)
[2024-03-11 08:34] VITALS: BP 131/60; PULSE 66; RESP 18; TEMP 36.6; O2SAT 98
[2024-03-11] MEDS: CYCLOSPORINE 1 EACH EYE-BOTH ×2 (08:36→20:22)
[2024-03-11] MEDS: Simethicone 80 MG TAB.CHEW PO ×2 (08:36→20:28)
[2024-03-11] MEDS: Acetaminophen 325 MG TABLET 650 MG PO ×2 (08:36→20:28)
[2024-03-11] MEDS: allopurinoL 100 MG TABLET PO (08:37)
[2024-03-11] MEDS: Escitalopram Oxalate 10 MG TABLET PO (08:37)
[2024-03-11] MEDS: Cholecalciferol (Vitamin D3) 25 MCG TABLET PO (08:38)
[2024-03-11] MEDS: amLODIPine Besylate 2.5 MG TABLET PO (08:38)
[2024-03-11] MEDS: SITagliptin Phosphate 100 MG TABLET PO (08:38)
[2024-03-11] MEDS: Memantine HCl 5 MG TABLET PO (08:38)
--- NOTE | 2024-03-11 10:17 | HO.PSYCHPN ---
Subjective Subjective Date of Service: 03/11/24 Reason For Visit: psychosis Subjective Notes: Conditional Voluntary Interim History: The nursing staff reported the patient slept 8 hours she had been compliant with treatment. The social service coordinator reported that her mental state [facility] still on process. On interview the patient denies new symptoms, waiting for placement. Mental Status Exam Mental Status Exam Patient Appearance: Appropriate Patient Orientation: Person and Situation Level of Consciousness: Awake and Appropriate Patient Behavior: Cooperative Mood Description: Calm Affect Description: Constricted Patient Cognition Impaired: Yes Ability to Follow Directions: Good Speech Pattern: Clear Hallucinations: None Delusions: Not Present Thought Process: Distracted and Slowed Thinking Thought Content: positive for [place] and positive for Poverty of Content Judgement: Fair Diagnostics Vital Signs (24Hr): Vital Signs - 24 hr 03/10/24 20:00 03/11/24 08:34 Temperature 97.3 F 97.9 F Pulse Rate 77 66 Respiratory Rate 18 Blood Pressure 137/58 L 131/60 Pulse Oximetry 95 98 Oxygen Delivery Method Room Air Room Air BMI result Body Mass Index 31.8 Labs 01/06/24 07:28 03/09/24 07:03 Labs: Laboratory Results - last 48 hr 03/10/24 03/11/24 05:37 05:21 POC Glucose 111 138 H Medications Medications Current Medications Acetaminophen (Acetaminophen 325 Mg Tablet) 650 mg PO Q6H PRN PRN Reason: Headache/Pain Mild Scale (1-3) Last Admin: 03/11/24 08:36 Dose: 650 mg Al Hydroxide/Mg Hydroxide (Magnesium Hydrox/Alum Hydrox 30 Ml Oral.Susp) 30 ml PO Q6H PRN PRN Reason: Heartburn/Nausea Allopurinol (Allopurinol 100 Mg Tablet) 100 mg PO DAILY [facility] Last Admin: 03/11/24 08:37 Dose: 100 mg Amlodipine Besylate (Amlodipine Besylate 2.5 Mg Tablet) 2.5 mg PO DAILY [facility]; Protocol Last Admin: 03/11/24 08:38 Dose: 2.5 mg Artificial Tears (Artificial Tears 15 Ml Drops) 2 drop EYE-BOTH Q4H PRN PRN Reason: Dry Eyes Last Admin: 03/04/24 10:40 Dose: 2 drop Atorvastatin Calcium (Atorvastatin Calcium 10 Mg Tablet) 10 mg PO BEDTIME [facility] Last Admin: 03/10/24 20:04 Dose: 10 mg Cyclobenzaprine HCl (Cyclobenzaprine Hcl 5 Mg Tablet) 5 mg PO TID PRN PRN Reason: back spasm Last Admin: 03/03/24 21:12 Dose: 5 mg Diphenoxylate HCl/Atropine (Diphenoxylate/Atrop 2.5/0.025 Tablet) 1 tab PO DAILY PRN PRN Reason: loose stools Last Admin: 02/09/24 10:32 Dose: 1 tab Donepezil HCl (Donepezil Hcl 5 Mg Tablet) 5 mg PO BEDTIME [facility] Last Admin: 03/10/24 20:04 Dose: 5 mg Escitalopram Oxalate (Escitalopram Oxalate 10 Mg Tablet) 10 mg PO DAILY [facility] Last Admin: 03/11/24 08:37 Dose: 10 mg Levothyroxine Sodium (Levothyroxine Sodium 88 Mcg Tablet) 88 mcg PO DAILY@0600 [facility] Last Admin: 03/11/24 05:19 Dose: 88 mcg Loperamide HCl (Loperamide Hcl 2 Mg Capsule) 2 mg PO Q4H PRN PRN Reason: Loose Stool Lorazepam (Lorazepam 0.5 Mg Tablet) 0.5 mg PO DAILY PRN PRN Reason: Anxiety Last Admin: 01/29/24 09:27 Dose: 0.5 mg Magnesium Hydroxide (Milk Of Magnesia 30 Ml Oral.Susp) 30 ml PO DAILY PRN PRN Reason: Constipation Memantine (Memantine Hcl 5 Mg Tablet) 5 mg PO DAILY [facility] Last Admin: 03/11/24 08:38 Dose: 5 mg Metformin HCl (Metformin Hcl 500 Mg Tablet) 500 mg PO BEDTIME [facility] Last Admin: 03/10/24 20:04 Dose: 500 mg Pt Own (Cyclosporine ([Restasis] 1 Drop)) 1 drop EYE-BOTH BID [facility] Last Admin: 03/11/24 08:36 Dose: 1 drop Olanzapine (Olanzapine 2.5 Mg Tablet) 2.5 mg PO Q4H PRN PRN Reason: agitation/acute psychosis Simethicone (Simethicone 80 Mg Tab.Chew) 80 mg PO QIDWMHS PRN PRN Reason: bloating Last Admin: 03/11/24 08:36 Dose: 80 mg Sitagliptin Phosphate (Sitagliptin Phosphate 100 Mg Tablet) 100 mg PO DAILY [facility] Last Admin: 03/11/24 08:38 Dose: 100 mg Trazodone HCl (Trazodone Hcl 50 Mg Tablet) 50 mg PO BEDTIME MRX1 PRN PRN Reason: Insomnia Last Admin: 02/05/24 21:08 Dose: 50 mg Vitamin D (Cholecalciferol (Vitamin D3) 25 Mcg Tablet) 25 mcg PO DAILY [facility] Last Admin: 03/11/24 08:38 Dose: 25 mcg Zolpidem Tartrate (Zolpidem Tartrate 5 Mg Tablet) 5 mg PO BEDTIME [facility] Last Admin: 03/10/24 20:04 Dose: 5 mg Allergies Allergies Allergy/AdvReac Type Severity Reaction Status Date / Time codeine Allergy Unknown Verified 12/07/23 20:27 Assessment & Plan Assessment & Plan (1) Dementia with psychotic disturbance: Status: Acute Code(s): F03.92 - Unspecified dementia, unspecified severity, with psychotic disturbance Plan Mrs. Jin is a 83 year-old woman with hx of vascular dementia with delusions of having an affair and some paranoid delusions. Some insight that this may not be the case but pt very much believes and takes action based on delusion despite here reporting that it may not be happening. It is unclear report from [facility] as to suicidal ideation. no indication of imminent harm to self or others, but collateral information is pending from family. May consider antipsychotic. PLAN 1. Continue with same treatment. 2. Waiting for placement. Reason for continued inpatient stay Substantial Risk for: inability to function, rapid decompensation and med/psych decompensation Time Spent With Patient Time: Total time managing care of this patient today __20__ minutes.
[2024-03-11 20:00] VITALS: BP 124/52; PULSE 75; RESP 18; TEMP 35.6; O2SAT 99
[2024-03-11] MEDS: metFORMIN HCl 500 MG TABLET PO (20:23)
[2024-03-11] MEDS: Donepezil HCl 5 MG TABLET PO (20:23)
[2024-03-11] MEDS: Atorvastatin Calcium 10 MG TABLET PO (20:24)
[2024-03-11] MEDS: Zolpidem Tartrate 5 MG TABLET PO (20:24)
[2024-03-12] MEDS: Levothyroxine Sodium 88 MCG TABLET PO (06:41)
[2024-03-12 07:28] LABS: Glucose, Whole Blood 118 mg/dL (60-115)
[2024-03-12 08:32] VITALS: BP 146/64; PULSE 70; RESP 16; TEMP 36.5; O2SAT 98
[2024-03-12] MEDS: CYCLOSPORINE 1 EACH EYE-BOTH ×2 (08:34→20:48)
[2024-03-12] MEDS: Memantine HCl 5 MG TABLET PO (08:34)
[2024-03-12] MEDS: Cholecalciferol (Vitamin D3) 25 MCG TABLET PO (08:35)
[2024-03-12] MEDS: Acetaminophen 325 MG TABLET 650 MG PO ×2 (08:35→20:50)
[2024-03-12] MEDS: allopurinoL 100 MG TABLET PO (08:36)
[2024-03-12] MEDS: Simethicone 80 MG TAB.CHEW PO ×3 (08:36→20:50)
[2024-03-12] MEDS: amLODIPine Besylate 2.5 MG TABLET PO (08:36)
[2024-03-12] MEDS: SITagliptin Phosphate 100 MG TABLET PO (08:37)
[2024-03-12] MEDS: Escitalopram Oxalate 10 MG TABLET PO (08:37)
--- NOTE | 2024-03-12 12:18 | HO.PSYCHPN ---
Subjective Subjective Date of Service: 03/12/24 Reason For Visit: psychosis Subjective Notes: Conditional Voluntary Interim History: The nursing staff reported the patient had been compliant with treatment no changes in her mental status. On interview the patient denies new symptoms, waiting for placement. Mental Status Exam Mental Status Exam Patient Appearance: Appropriate Patient Orientation: Person and Situation Level of Consciousness: Awake and Appropriate Patient Behavior: Cooperative Mood Description: Calm Affect Description: Constricted Patient Cognition Impaired: Yes Ability to Follow Directions: Good Speech Pattern: Clear Hallucinations: None Delusions: Not Present Thought Process: Distracted and Slowed Thinking Thought Content: positive for [place] Judgement: Fair Diagnostics Vital Signs (24Hr): Vital Signs - 24 hr 03/11/24 20:00 03/12/24 08:32 Temperature 96.1 F L 97.7 F Pulse Rate 75 70 Respiratory Rate 18 16 Blood Pressure 124/52 L 146/64 H Pulse Oximetry 99 98 Oxygen Delivery Method Room Air Room Air BMI result Body Mass Index 31.8 Labs 01/06/24 07:28 03/09/24 07:03 Labs: Laboratory Results - last 48 hr 03/11/24 03/12/24 05:21 06:40 POC Glucose 138 H 118 H Medications Medications Current Medications Acetaminophen (Acetaminophen 325 Mg Tablet) 650 mg PO Q6H PRN PRN Reason: Headache/Pain Mild Scale (1-3) Last Admin: 03/12/24 08:35 Dose: 650 mg Al Hydroxide/Mg Hydroxide (Magnesium Hydrox/Alum Hydrox 30 Ml Oral.Susp) 30 ml PO Q6H PRN PRN Reason: Heartburn/Nausea Allopurinol (Allopurinol 100 Mg Tablet) 100 mg PO DAILY [facility] Last Admin: 03/12/24 08:36 Dose: 100 mg Amlodipine Besylate (Amlodipine Besylate 2.5 Mg Tablet) 2.5 mg PO DAILY [facility]; Protocol Last Admin: 03/12/24 08:36 Dose: 2.5 mg Artificial Tears (Artificial Tears 15 Ml Drops) 2 drop EYE-BOTH Q4H PRN PRN Reason: Dry Eyes Last Admin: 03/04/24 10:40 Dose: 2 drop Atorvastatin Calcium (Atorvastatin Calcium 10 Mg Tablet) 10 mg PO BEDTIME [facility] Last Admin: 03/11/24 20:24 Dose: 10 mg Cyclobenzaprine HCl (Cyclobenzaprine Hcl 5 Mg Tablet) 5 mg PO TID PRN PRN Reason: back spasm Last Admin: 03/03/24 21:12 Dose: 5 mg Diphenoxylate HCl/Atropine (Diphenoxylate/Atrop 2.5/0.025 Tablet) 1 tab PO DAILY PRN PRN Reason: loose stools Last Admin: 02/09/24 10:32 Dose: 1 tab Donepezil HCl (Donepezil Hcl 5 Mg Tablet) 5 mg PO BEDTIME [facility] Last Admin: 03/11/24 20:23 Dose: 5 mg Escitalopram Oxalate (Escitalopram Oxalate 10 Mg Tablet) 10 mg PO DAILY [facility] Last Admin: 03/12/24 08:37 Dose: 10 mg Levothyroxine Sodium (Levothyroxine Sodium 88 Mcg Tablet) 88 mcg PO DAILY@0600 [facility] Last Admin: 03/12/24 06:41 Dose: 88 mcg Loperamide HCl (Loperamide Hcl 2 Mg Capsule) 2 mg PO Q4H PRN PRN Reason: Loose Stool Lorazepam (Lorazepam 0.5 Mg Tablet) 0.5 mg PO DAILY PRN PRN Reason: Anxiety Last Admin: 01/29/24 09:27 Dose: 0.5 mg Magnesium Hydroxide (Milk Of Magnesia 30 Ml Oral.Susp) 30 ml PO DAILY PRN PRN Reason: Constipation Memantine (Memantine Hcl 5 Mg Tablet) 5 mg PO DAILY [facility] Last Admin: 03/12/24 08:34 Dose: 5 mg Metformin HCl (Metformin Hcl 500 Mg Tablet) 500 mg PO BEDTIME [facility] Last Admin: 03/11/24 20:23 Dose: 500 mg Pt Own (Cyclosporine ([Restasis] 1 Drop)) 1 drop EYE-BOTH BID [facility] Last Admin: 03/12/24 08:34 Dose: 1 drop Olanzapine (Olanzapine 2.5 Mg Tablet) 2.5 mg PO Q4H PRN PRN Reason: agitation/acute psychosis Simethicone (Simethicone 80 Mg Tab.Chew) 80 mg PO QIDWMHS PRN PRN Reason: bloating Last Admin: 03/12/24 08:36 Dose: 80 mg Sitagliptin Phosphate (Sitagliptin Phosphate 100 Mg Tablet) 100 mg PO DAILY [facility] Last Admin: 03/12/24 08:37 Dose: 100 mg Trazodone HCl (Trazodone Hcl 50 Mg Tablet) 50 mg PO BEDTIME MRX1 PRN PRN Reason: Insomnia Last Admin: 02/05/24 21:08 Dose: 50 mg Vitamin D (Cholecalciferol (Vitamin D3) 25 Mcg Tablet) 25 mcg PO DAILY [facility] Last Admin: 03/12/24 08:35 Dose: 25 mcg Zolpidem Tartrate (Zolpidem Tartrate 5 Mg Tablet) 5 mg PO BEDTIME [facility] Last Admin: 03/11/24 20:24 Dose: 5 mg Allergies Allergies Allergy/AdvReac Type Severity Reaction Status Date / Time codeine Allergy Unknown Verified 12/07/23 20:27 Assessment & Plan Assessment & Plan (1) Dementia with psychotic disturbance: Status: Acute Code(s): F03.92 - Unspecified dementia, unspecified severity, with psychotic disturbance Plan Mrs. Jin is a 83 year-old woman with hx of vascular dementia with delusions of having an affair and some paranoid delusions. Some insight that this may not be the case but pt very much believes and takes action based on delusion despite here reporting that it may not be happening. It is unclear report from [facility] as to suicidal ideation. no indication of imminent harm to self or others, but collateral information is pending from family. May consider antipsychotic. PLAN 1. Continue with same treatment. 2. Waiting for placement. Reason for continued inpatient stay Substantial Risk for: inability to function, rapid decompensation and med/psych decompensation Time Spent With Patient Time: Total time managing care of this patient today __20__ minutes.
[2024-03-12 20:00] VITALS: BP 145/65; PULSE 77; RESP 18; TEMP 35.8; O2SAT 98
[2024-03-12] MEDS: metFORMIN HCl 500 MG TABLET PO (20:49)
[2024-03-12] MEDS: Donepezil HCl 5 MG TABLET PO (20:49)
[2024-03-12] MEDS: Zolpidem Tartrate 5 MG TABLET PO (20:49)
[2024-03-12] MEDS: Atorvastatin Calcium 10 MG TABLET PO (20:50)
[2024-03-13] MEDS: Levothyroxine Sodium 88 MCG TABLET PO (06:35)
[2024-03-13 06:43] LABS: Glucose, Whole Blood 119 mg/dL (60-115)
[2024-03-13 07:55] VITALS: BP 129/67; PULSE 70; RESP 18; TEMP 36.6; O2SAT 97
--- NOTE | 2024-03-13 08:16 | P.PNPSI_ITS ---
Subjective Subjective Date of Service: 03/13/24 Reason For Visit: psychosis Subjective Notes: Conditional Voluntary Interim History: The nursing staff reported the patient had been compliant with treatment. On interview the patient denies new symptoms, compliant with treatment, waiting for placement Mental Status Exam Mental Status Exam Patient Appearance: Appropriate Patient Orientation: Person and Situation Level of Consciousness: Awake and Appropriate Patient Behavior: Cooperative and Passive Mood Description: Calm Affect Description: Constricted Patient Cognition Impaired: Yes Ability to Follow Directions: Good Speech Pattern: Clear Hallucinations: None Delusions: Not Present Thought Process: Distracted and Slowed Thinking Thought Content: positive for [place] and positive for Circumstantial Judgement: Fair Diagnostics Vital Signs (24Hr): Vital Signs - 24 hr 03/12/24 08:32 03/12/24 20:00 Temperature 97.7 F 96.5 F L Pulse Rate 70 77 Respiratory Rate 16 18 Blood Pressure 146/64 H 145/65 H Pulse Oximetry 98 98 Oxygen Delivery Method Room Air Room Air BMI result Body Mass Index 31.8 Labs 01/06/24 07:28 03/09/24 07:03 Labs: Laboratory Results - last 48 hr 03/12/24 03/13/24 06:40 06:27 POC Glucose 118 H 119 H Medications Medications Current Medications Acetaminophen (Acetaminophen 325 Mg Tablet) 650 mg PO Q6H PRN PRN Reason: Headache/Pain Mild Scale (1-3) Last Admin: 03/12/24 20:50 Dose: 650 mg Al Hydroxide/Mg Hydroxide (Magnesium Hydrox/Alum Hydrox 30 Ml Oral.Susp) 30 ml PO Q6H PRN PRN Reason: Heartburn/Nausea Allopurinol (Allopurinol 100 Mg Tablet) 100 mg PO DAILY [facility] Last Admin: 03/12/24 08:36 Dose: 100 mg Amlodipine Besylate (Amlodipine Besylate 2.5 Mg Tablet) 2.5 mg PO DAILY [facility]; Protocol Last Admin: 03/12/24 08:36 Dose: 2.5 mg Artificial Tears (Artificial Tears 15 Ml Drops) 2 drop EYE-BOTH Q4H PRN PRN Reason: Dry Eyes Last Admin: 03/04/24 10:40 Dose: 2 drop Atorvastatin Calcium (Atorvastatin Calcium 10 Mg Tablet) 10 mg PO BEDTIME [facility] Last Admin: 03/12/24 20:50 Dose: 10 mg Cyclobenzaprine HCl (Cyclobenzaprine Hcl 5 Mg Tablet) 5 mg PO TID PRN PRN Reason: back spasm Last Admin: 03/03/24 21:12 Dose: 5 mg Diphenoxylate HCl/Atropine (Diphenoxylate/Atrop 2.5/0.025 Tablet) 1 tab PO DAILY PRN PRN Reason: loose stools Last Admin: 02/09/24 10:32 Dose: 1 tab Donepezil HCl (Donepezil Hcl 5 Mg Tablet) 5 mg PO BEDTIME [facility] Last Admin: 03/12/24 20:49 Dose: 5 mg Escitalopram Oxalate (Escitalopram Oxalate 10 Mg Tablet) 10 mg PO DAILY [facility] Last Admin: 03/12/24 08:37 Dose: 10 mg Levothyroxine Sodium (Levothyroxine Sodium 88 Mcg Tablet) 88 mcg PO DAILY@0600 [facility] Last Admin: 03/13/24 06:35 Dose: 88 mcg Loperamide HCl (Loperamide Hcl 2 Mg Capsule) 2 mg PO Q4H PRN PRN Reason: Loose Stool Lorazepam (Lorazepam 0.5 Mg Tablet) 0.5 mg PO DAILY PRN PRN Reason: Anxiety Last Admin: 01/29/24 09:27 Dose: 0.5 mg Magnesium Hydroxide (Milk Of Magnesia 30 Ml Oral.Susp) 30 ml PO DAILY PRN PRN Reason: Constipation Memantine (Memantine Hcl 5 Mg Tablet) 5 mg PO DAILY [facility] Last Admin: 03/12/24 08:34 Dose: 5 mg Metformin HCl (Metformin Hcl 500 Mg Tablet) 500 mg PO BEDTIME [facility] Last Admin: 03/12/24 20:49 Dose: 500 mg Pt Own (Cyclosporine ([Restasis] 1 Drop)) 1 drop EYE-BOTH BID [facility] Last Admin: 03/12/24 20:48 Dose: 1 drop Olanzapine (Olanzapine 2.5 Mg Tablet) 2.5 mg PO Q4H PRN PRN Reason: agitation/acute psychosis Simethicone (Simethicone 80 Mg Tab.Chew) 80 mg PO QIDWMHS PRN PRN Reason: bloating Last Admin: 03/12/24 20:50 Dose: 80 mg Sitagliptin Phosphate (Sitagliptin Phosphate 100 Mg Tablet) 100 mg PO DAILY [facility] Last Admin: 03/12/24 08:37 Dose: 100 mg Trazodone HCl (Trazodone Hcl 50 Mg Tablet) 50 mg PO BEDTIME [facility] PRN PRN Reason: Insomnia Last Admin: 02/05/24 21:08 Dose: 50 mg Vitamin D (Cholecalciferol (Vitamin D3) 25 Mcg Tablet) 25 mcg PO DAILY [facility] Last Admin: 03/12/24 08:35 Dose: 25 mcg Zolpidem Tartrate (Zolpidem Tartrate 5 Mg Tablet) 5 mg PO BEDTIME [facility] Last Admin: 03/12/24 20:49 Dose: 5 mg Allergies Allergies Allergy/AdvReac Type Severity Reaction Status Date / Time codeine Allergy Unknown Verified 12/07/23 20:27 Assessment & Plan Assessment & Plan (1) Dementia with psychotic disturbance: Status: Acute Code(s): F03.92 - Unspecified dementia, unspecified severity, with psychotic disturbance Plan Mrs. Jin is a 83 year-old woman with hx of vascular dementia with delusions of having an affair and some paranoid delusions. Some insight that this may not be the case but pt very much believes and takes action based on delusion despite here reporting that it may not be happening. It is unclear report from [facility] as to suicidal ideation. no indication of imminent harm to self or others, but collateral information is pending from family. May consider antipsychotic. PLAN 1. Continue with same treatment. 2. Waiting for placement. Reason for continued inpatient stay Substantial Risk for: inability to function, rapid decompensation and med/psych decompensation Time Spent With Patient Time: Total time managing care of this patient today __20__ minutes.
[2024-03-13] MEDS: amLODIPine Besylate 2.5 MG TABLET PO (08:53)
[2024-03-13] MEDS: Cholecalciferol (Vitamin D3) 25 MCG TABLET PO (08:53)
[2024-03-13] MEDS: allopurinoL 100 MG TABLET PO (08:53)
[2024-03-13] MEDS: Memantine HCl 5 MG TABLET PO (08:53)
[2024-03-13] MEDS: Escitalopram Oxalate 10 MG TABLET PO (08:53)
[2024-03-13] MEDS: SITagliptin Phosphate 100 MG TABLET PO (08:53)
[2024-03-13] MEDS: CYCLOSPORINE 1 EACH EYE-BOTH ×2 (08:56→21:34)
[2024-03-13 20:00] VITALS: BP 130/60; PULSE 79; RESP 16; TEMP 36.7; O2SAT 97
[2024-03-13] MEDS: Acetaminophen 325 MG TABLET 650 MG PO (21:34)
[2024-03-13] MEDS: metFORMIN HCl 500 MG TABLET PO (21:34)
[2024-03-13] MEDS: Atorvastatin Calcium 10 MG TABLET PO (21:35)
[2024-03-13] MEDS: Donepezil HCl 5 MG TABLET PO (21:35)
[2024-03-13] MEDS: Zolpidem Tartrate 5 MG TABLET PO (21:36)
[2024-03-13] MEDS: Simethicone 80 MG TAB.CHEW PO (21:36)
[2024-03-14] MEDS: Levothyroxine Sodium 88 MCG TABLET PO (06:31)
[2024-03-14 06:52] LABS: Glucose, Whole Blood 130 mg/dL (60-115)
[2024-03-14 08:00] VITALS: BP 130/62; PULSE 69; RESP 18; TEMP 36.8; O2SAT 98
[2024-03-14] MEDS: amLODIPine Besylate 2.5 MG TABLET PO (08:48)
[2024-03-14] MEDS: allopurinoL 100 MG TABLET PO (08:48)
[2024-03-14] MEDS: CYCLOSPORINE 1 EACH EYE-BOTH ×2 (08:48→20:24)
[2024-03-14] MEDS: Escitalopram Oxalate 10 MG TABLET PO (08:48)
[2024-03-14] MEDS: SITagliptin Phosphate 100 MG TABLET PO (08:48)
[2024-03-14] MEDS: Acetaminophen 325 MG TABLET 650 MG PO ×2 (08:48→20:23)
[2024-03-14] MEDS: Cholecalciferol (Vitamin D3) 25 MCG TABLET PO (08:48)
[2024-03-14] MEDS: Simethicone 80 MG TAB.CHEW PO ×2 (08:48→20:24)
[2024-03-14] MEDS: Memantine HCl 5 MG TABLET PO (08:49)
[2024-03-14 10:45] VITALS: BMI 31.5
--- NOTE | 2024-03-14 13:41 | HO.PSYCHPN ---
Subjective Subjective Date of Service: 03/14/24 Reason For Visit: psychosis Subjective Notes: Conditional Voluntary Interim History: Pt slept through the night. She denies any concerns. No SI/HI. Pending placement. Review of Systems Review of Systems unremarkable Yes all other systems are reviewed and are negative Constitutional: Reports fatigue, Reports malaise and Reports weakness Reports vertigo and Reports dizziness Cardiovascular: Reports lightheadedness Reports vertigo, Reports dizziness and Reports weakness Endocrine: Reports fatigue Mental Status Exam Mental Status Exam Narrative: Appearance: wearing casual clothing, siting in chair, no NAD Behavior: cooperative Psychomotor: no retardation or agitation noted Speech: clear, normal rate/rhythm/volume, spontaneous TP: mostly linear TC: feeling okay Mood: fine Affect: congruent, SI: denies HI: denies VH/AH: none Delusions: not reported Insight/judgment: poor x 2. memory/cog: alert, oriented x 3. ACL 3.4 Diagnostics Vital Signs (24Hr): Vital Signs - 24 hr 03/13/24 20:00 03/14/24 08:00 Temperature 98.1 F 98.2 F Pulse Rate 79 69 Respiratory Rate 16 18 Blood Pressure 130/60 130/62 Pulse Oximetry 97 98 Oxygen Delivery Method Room Air Room Air BMI result Body Mass Index 31.5 Labs 01/06/24 07:28 03/09/24 07:03 Labs: Laboratory Results - last 48 hr 03/13/24 03/14/24 06:27 06:30 POC Glucose 119 H 130 H Medications Medications Current Medications Acetaminophen (Acetaminophen 325 Mg Tablet) 650 mg PO Q6H PRN PRN Reason: Headache/Pain Mild Scale (1-3) Last Admin: 03/14/24 08:48 Dose: 650 mg Al Hydroxide/Mg Hydroxide (Magnesium Hydrox/Alum Hydrox 30 Ml Oral.Susp) 30 ml PO Q6H PRN PRN Reason: Heartburn/Nausea Allopurinol (Allopurinol 100 Mg Tablet) 100 mg PO DAILY [facility] Last Admin: 03/14/24 08:48 Dose: 100 mg Amlodipine Besylate (Amlodipine Besylate 2.5 Mg Tablet) 2.5 mg PO DAILY [facility]; Protocol Last Admin: 03/14/24 08:48 Dose: 2.5 mg Artificial Tears (Artificial Tears 15 Ml Drops) 2 drop EYE-BOTH Q4H PRN PRN Reason: Dry Eyes Last Admin: 03/04/24 10:40 Dose: 2 drop Atorvastatin Calcium (Atorvastatin Calcium 10 Mg Tablet) 10 mg PO BEDTIME [facility] Last Admin: 03/13/24 21:35 Dose: 10 mg Cyclobenzaprine HCl (Cyclobenzaprine Hcl 5 Mg Tablet) 5 mg PO TID PRN PRN Reason: back spasm Last Admin: 03/03/24 21:12 Dose: 5 mg Diphenoxylate HCl/Atropine (Diphenoxylate/Atrop 2.5/0.025 Tablet) 1 tab PO DAILY PRN PRN Reason: loose stools Last Admin: 02/09/24 10:32 Dose: 1 tab Donepezil HCl (Donepezil Hcl 5 Mg Tablet) 5 mg PO BEDTIME [facility] Last Admin: 03/13/24 21:35 Dose: 5 mg Escitalopram Oxalate (Escitalopram Oxalate 10 Mg Tablet) 10 mg PO DAILY [facility] Last Admin: 03/14/24 08:48 Dose: 10 mg Levothyroxine Sodium (Levothyroxine Sodium 88 Mcg Tablet) 88 mcg PO DAILY@0600 [facility] Last Admin: 03/14/24 06:31 Dose: 88 mcg Loperamide HCl (Loperamide Hcl 2 Mg Capsule) 2 mg PO Q4H PRN PRN Reason: Loose Stool Lorazepam (Lorazepam 0.5 Mg Tablet) 0.5 mg PO DAILY PRN PRN Reason: Anxiety Last Admin: 01/29/24 09:27 Dose: 0.5 mg Magnesium Hydroxide (Milk Of Magnesia 30 Ml Oral.Susp) 30 ml PO DAILY PRN PRN Reason: Constipation Memantine (Memantine Hcl 5 Mg Tablet) 5 mg PO DAILY [facility] Last Admin: 03/14/24 08:49 Dose: 5 mg Metformin HCl (Metformin Hcl 500 Mg Tablet) 500 mg PO BEDTIME [facility] Last Admin: 03/13/24 21:34 Dose: 500 mg Pt Own (Cyclosporine ([Restasis] 1 Drop)) 1 drop EYE-BOTH BID [facility] Last Admin: 03/14/24 08:48 Dose: 1 drop Olanzapine (Olanzapine 2.5 Mg Tablet) 2.5 mg PO Q4H PRN PRN Reason: agitation/acute psychosis Simethicone (Simethicone 80 Mg Tab.Chew) 80 mg PO QIDWMHS PRN PRN Reason: bloating Last Admin: 03/14/24 08:48 Dose: 80 mg Sitagliptin Phosphate (Sitagliptin Phosphate 100 Mg Tablet) 100 mg PO DAILY [facility] Last Admin: 03/14/24 08:48 Dose: 100 mg Trazodone HCl (Trazodone Hcl 50 Mg Tablet) 50 mg PO BEDTIME [facility]X1 PRN PRN Reason: Insomnia Last Admin: 02/05/24 21:08 Dose: 50 mg Vitamin D (Cholecalciferol (Vitamin D3) 25 Mcg Tablet) 25 mcg PO DAILY [facility] Last Admin: 03/14/24 08:48 Dose: 25 mcg Zolpidem Tartrate (Zolpidem Tartrate 5 Mg Tablet) 5 mg PO BEDTIME [facility] Last Admin: 03/13/24 21:36 Dose: 5 mg Allergies Allergies Allergy/AdvReac Type Severity Reaction Status Date / Time codeine Allergy Unknown Verified 12/07/23 20:27 Assessment & Plan Assessment & Plan (1) Dementia with psychotic disturbance: Status: Acute Code(s): F03.92 - Unspecified dementia, unspecified severity, with psychotic disturbance Plan Mrs. Jin is a 83 year-old woman with hx of vascular dementia with delusions of having an affair and some paranoid delusions. Some insight that this may not be the case but pt very much believes and takes action based on delusion despite here reporting that it may not be happening. It is unclear report from [facility] as to suicidal ideation. no indication of imminent harm to self or others, but collateral information is pending from family. May consider antipsychotic. PLAN 1. Continue with same treatment. 2. Waiting for placement. Reason for continued inpatient stay Substantial Risk for: inability to function Time Spent With Patient Time: Total time managing care of this patient today ____ minutes.
[2024-03-14 20:00] VITALS: BP 143/64; PULSE 82; RESP 16; TEMP 36.4; O2SAT 97
[2024-03-14] MEDS: metFORMIN HCl 500 MG TABLET PO (20:23)
[2024-03-14] MEDS: Atorvastatin Calcium 10 MG TABLET PO (20:24)
[2024-03-14] MEDS: Donepezil HCl 5 MG TABLET PO (20:24)
[2024-03-14] MEDS: Zolpidem Tartrate 5 MG TABLET PO (20:24)
[2024-03-15] MEDS: Levothyroxine Sodium 88 MCG TABLET PO (06:07)
[2024-03-15 07:09] LABS: Glucose, Whole Blood 141 mg/dL (60-115)
[2024-03-15 10:06] VITALS: BP 141/66; PULSE 68; RESP 20; TEMP 37.6; O2SAT 97
[2024-03-15] MEDS: SITagliptin Phosphate 100 MG TABLET PO (10:08)
[2024-03-15] MEDS: Memantine HCl 5 MG TABLET PO (10:08)
[2024-03-15] MEDS: allopurinoL 100 MG TABLET PO (10:08)
[2024-03-15] MEDS: Escitalopram Oxalate 10 MG TABLET PO (10:08)
[2024-03-15] MEDS: Cholecalciferol (Vitamin D3) 25 MCG TABLET PO (10:08)
[2024-03-15] MEDS: amLODIPine Besylate 2.5 MG TABLET PO (10:08)
[2024-03-15] MEDS: CYCLOSPORINE 1 EACH EYE-BOTH ×2 (10:09→20:53)
[2024-03-15] MEDS: Acetaminophen 325 MG TABLET 650 MG PO (10:19)
[2024-03-15] MEDS: Simethicone 80 MG TAB.CHEW PO ×2 (10:20→20:54)
--- NOTE | 2024-03-15 11:49 | P.PNPSI_ITS ---
Subjective Subjective Date of Service: 03/15/24 Reason For Visit: psychosis Subjective Notes: Conditional Voluntary Interim History: The nursing staff reported no changes in her mental status cooperative pleasant slept well. On interview the patient denies new symptoms. Waiting for placement. Mental Status Exam Mental Status Exam Patient Appearance: Appropriate Patient Orientation: Person and Situation Level of Consciousness: Awake and Appropriate Patient Behavior: Guarded and Passive Mood Description: Calm Affect Description: Constricted Patient Cognition Impaired: Yes Ability to Follow Directions: Good Speech Pattern: Clear Hallucinations: None Delusions: Not Present Thought Process: Distracted Thought Content: positive for [place] and positive for Poverty of Content Judgement: Fair Diagnostics Vital Signs (24Hr): Vital Signs - 24 hr 03/14/24 20:00 03/15/24 10:06 Temperature 97.6 F 99.7 F Pulse Rate 82 68 Respiratory Rate 16 20 Blood Pressure 143/64 H 141/66 H Pulse Oximetry 97 97 Oxygen Delivery Method Room Air Room Air BMI result Body Mass Index 31.5 Labs 01/06/24 07:28 03/09/24 07:03 Labs: Laboratory Results - last 48 hr 03/14/24 03/15/24 06:30 06:09 POC Glucose 130 H 141 H Medications Medications Current Medications Acetaminophen (Acetaminophen 325 Mg Tablet) 650 mg PO Q6H PRN PRN Reason: Headache/Pain Mild Scale (1-3) Last Admin: 03/15/24 10:19 Dose: 650 mg Al Hydroxide/Mg Hydroxide (Magnesium Hydrox/Alum Hydrox 30 Ml Oral.Susp) 30 ml PO Q6H PRN PRN Reason: Heartburn/Nausea Allopurinol (Allopurinol 100 Mg Tablet) 100 mg PO DAILY [facility] Last Admin: 03/15/24 10:08 Dose: 100 mg Amlodipine Besylate (Amlodipine Besylate 2.5 Mg Tablet) 2.5 mg PO DAILY [facility]; Protocol Last Admin: 03/15/24 10:08 Dose: 2.5 mg Artificial Tears (Artificial Tears 15 Ml Drops) 2 drop EYE-BOTH Q4H PRN PRN Reason: Dry Eyes Last Admin: 03/04/24 10:40 Dose: 2 drop Atorvastatin Calcium (Atorvastatin Calcium 10 Mg Tablet) 10 mg PO BEDTIME [facility] Last Admin: 03/14/24 20:24 Dose: 10 mg Cyclobenzaprine HCl (Cyclobenzaprine Hcl 5 Mg Tablet) 5 mg PO TID PRN PRN Reason: back spasm Last Admin: 03/03/24 21:12 Dose: 5 mg Diphenoxylate HCl/Atropine (Diphenoxylate/Atrop 2.5/0.025 Tablet) 1 tab PO DAILY PRN PRN Reason: loose stools Last Admin: 02/09/24 10:32 Dose: 1 tab Donepezil HCl (Donepezil Hcl 5 Mg Tablet) 5 mg PO BEDTIME [facility] Last Admin: 03/14/24 20:24 Dose: 5 mg Escitalopram Oxalate (Escitalopram Oxalate 10 Mg Tablet) 10 mg PO DAILY [facility] Last Admin: 03/15/24 10:08 Dose: 10 mg Levothyroxine Sodium (Levothyroxine Sodium 88 Mcg Tablet) 88 mcg PO DAILY@0600 [facility] Last Admin: 03/15/24 06:07 Dose: 88 mcg Loperamide HCl (Loperamide Hcl 2 Mg Capsule) 2 mg PO Q4H PRN PRN Reason: Loose Stool Lorazepam (Lorazepam 0.5 Mg Tablet) 0.5 mg PO DAILY PRN PRN Reason: Anxiety Last Admin: 01/29/24 09:27 Dose: 0.5 mg Magnesium Hydroxide (Milk Of Magnesia 30 Ml Oral.Susp) 30 ml PO DAILY PRN PRN Reason: Constipation Memantine (Memantine Hcl 5 Mg Tablet) 5 mg PO DAILY [facility] Last Admin: 03/15/24 10:08 Dose: 5 mg Metformin HCl (Metformin Hcl 500 Mg Tablet) 500 mg PO BEDTIME [facility] Last Admin: 03/14/24 20:23 Dose: 500 mg Pt Own (Cyclosporine ([Restasis] 1 Drop)) 1 drop EYE-BOTH BID [facility] Last Admin: 03/15/24 10:09 Dose: 1 drop Olanzapine (Olanzapine 2.5 Mg Tablet) 2.5 mg PO Q4H PRN PRN Reason: agitation/acute psychosis Simethicone (Simethicone 80 Mg Tab.Chew) 80 mg PO QIDWMHS PRN PRN Reason: bloating Last Admin: 03/15/24 10:20 Dose: 80 mg Sitagliptin Phosphate (Sitagliptin Phosphate 100 Mg Tablet) 100 mg PO DAILY [facility] Last Admin: 03/15/24 10:08 Dose: 100 mg Trazodone HCl (Trazodone Hcl 50 Mg Tablet) 50 mg PO BEDTIME [facility] PRN PRN Reason: Insomnia Last Admin: 02/05/24 21:08 Dose: 50 mg Vitamin D (Cholecalciferol (Vitamin D3) 25 Mcg Tablet) 25 mcg PO DAILY [facility] Last Admin: 03/15/24 10:08 Dose: 25 mcg Zolpidem Tartrate (Zolpidem Tartrate 5 Mg Tablet) 5 mg PO BEDTIME [facility] Last Admin: 03/14/24 20:24 Dose: 5 mg Allergies Allergies Allergy/AdvReac Type Severity Reaction Status Date / Time codeine Allergy Unknown Verified 12/07/23 20:27 Assessment & Plan Assessment & Plan (1) Dementia with psychotic disturbance: Status: Acute Code(s): F03.92 - Unspecified dementia, unspecified severity, with psychotic disturbance Plan Mrs. Jin is a 83 year-old woman with hx of vascular dementia with delusions of having an affair and some paranoid delusions. Some insight that this may not be the case but pt very much believes and takes action based on delusion despite here reporting that it may not be happening. It is unclear report from [facility] as to suicidal ideation. no indication of imminent harm to self or others, but collateral information is pending from family. May consider antipsychotic. PLAN 1. Continue with same treatment. 2. Waiting for placement. Reason for continued inpatient stay Substantial Risk for: inability to function, rapid decompensation and med/psych decompensation Time Spent With Patient Time: Total time managing care of this patient today __20__ minutes.
[2024-03-15 20:00] VITALS: BP 133/58; PULSE 65; RESP 18; TEMP 37; O2SAT 95
[2024-03-15] MEDS: Atorvastatin Calcium 10 MG TABLET PO (20:53)
[2024-03-15] MEDS: metFORMIN HCl 500 MG TABLET PO (20:54)
[2024-03-15] MEDS: Donepezil HCl 5 MG TABLET PO (20:54)
[2024-03-15] MEDS: Zolpidem Tartrate 5 MG TABLET PO (20:54)
[2024-03-16] MEDS: Levothyroxine Sodium 88 MCG TABLET PO (06:22)
[2024-03-16 06:55] LABS: Glucose, Whole Blood 160 mg/dL (60-115)
[2024-03-16 08:18] VITALS: BP 126/58; PULSE 70; RESP 20; TEMP 36.3; O2SAT 96
[2024-03-16] MEDS: CYCLOSPORINE 1 EACH EYE-BOTH ×2 (09:01→20:30)
[2024-03-16] MEDS: Acetaminophen 325 MG TABLET 650 MG PO ×2 (09:01→20:30)
[2024-03-16] MEDS: Simethicone 80 MG TAB.CHEW PO (09:01)
[2024-03-16] MEDS: Memantine HCl 5 MG TABLET PO (09:03)
[2024-03-16] MEDS: allopurinoL 100 MG TABLET PO (09:03)
[2024-03-16] MEDS: amLODIPine Besylate 2.5 MG TABLET PO (09:04)
[2024-03-16] MEDS: Cholecalciferol (Vitamin D3) 25 MCG TABLET PO (09:04)
[2024-03-16] MEDS: Escitalopram Oxalate 10 MG TABLET PO (09:04)
[2024-03-16] MEDS: SITagliptin Phosphate 100 MG TABLET PO (09:05)
[2024-03-16 10:10] LABS: Creatinine Clr Calc Pharmacy 27.6; Estimated Glomerular Filt Rate 30
--- NOTE | 2024-03-16 10:51 | HO.PSYCHPN ---
Subjective Subjective Date of Service: 03/16/24 Reason For Visit: psychosis Interim History: pleasant, cooperative. c/o congested ear, asking for ear drops. awaiting placement. per staff, no issues or concerns, awaiting placement. Mental Status Exam Mental Status Exam Patient Appearance: Appropriate Patient Orientation: Person and Situation Level of Consciousness: Awake and Appropriate Patient Behavior: Talkative Mood Description: Calm Affect Description: Happy Patient Cognition Impaired: Yes Ability to Follow Directions: Good Speech Pattern: Clear Hallucinations: None Delusions: Not Present Thought Process: Distracted Thought Content: positive for [place] and positive for Poverty of Content Judgement: Fair Diagnostics Vital Signs (24Hr): Vital Signs - 24 hr 03/15/24 20:00 03/16/24 08:18 Temperature 98.6 F 97.3 F Pulse Rate 65 70 Respiratory Rate 18 20 Blood Pressure 133/58 L 126/58 L Pulse Oximetry 95 96 Oxygen Delivery Method Room Air Room Air BMI result Body Mass Index 31.5 Labs 01/06/24 07:28 03/16/24 09:42 Labs: Laboratory Results - last 48 hr 03/15/24 03/16/24 03/16/24 06:09 06:50 09:42 Creatinine 1.64 H Estim Creat Clear Calc 27.6 Estimated GFR 30 POC Glucose 141 H 160 H Medications Medications Current Medications Acetaminophen (Acetaminophen 325 Mg Tablet) 650 mg PO Q6H PRN PRN Reason: Headache/Pain Mild Scale (1-3) Last Admin: 03/16/24 09:01 Dose: 650 mg Al Hydroxide/Mg Hydroxide (Magnesium Hydrox/Alum Hydrox 30 Ml Oral.Susp) 30 ml PO Q6H PRN PRN Reason: Heartburn/Nausea Allopurinol (Allopurinol 100 Mg Tablet) 100 mg PO DAILY [facility] Last Admin: 03/16/24 09:03 Dose: 100 mg Amlodipine Besylate (Amlodipine Besylate 2.5 Mg Tablet) 2.5 mg PO DAILY [facility]; Protocol Last Admin: 03/16/24 09:04 Dose: 2.5 mg Artificial Tears (Artificial Tears 15 Ml Drops) 2 drop EYE-BOTH Q4H PRN PRN Reason: Dry Eyes Last Admin: 03/04/24 10:40 Dose: 2 drop Atorvastatin Calcium (Atorvastatin Calcium 10 Mg Tablet) 10 mg PO BEDTIME [facility] Last Admin: 03/15/24 20:53 Dose: 10 mg Carbamide Peroxide (Carbamide Peroxide 6.5% Otic 15 Ml Drpbtl) 5 drop EAR-RIGHT BID [facility] Stop: 03/20/24 10:04 Cyclobenzaprine HCl (Cyclobenzaprine Hcl 5 Mg Tablet) 5 mg PO TID PRN PRN Reason: back spasm Last Admin: 03/03/24 21:12 Dose: 5 mg Diphenoxylate HCl/Atropine (Diphenoxylate/Atrop 2.5/0.025 Tablet) 1 tab PO DAILY PRN PRN Reason: loose stools Last Admin: 02/09/24 10:32 Dose: 1 tab Donepezil HCl (Donepezil Hcl 5 Mg Tablet) 5 mg PO BEDTIME [facility] Last Admin: 03/15/24 20:54 Dose: 5 mg Escitalopram Oxalate (Escitalopram Oxalate 10 Mg Tablet) 10 mg PO DAILY [facility] Last Admin: 03/16/24 09:04 Dose: 10 mg Levothyroxine Sodium (Levothyroxine Sodium 88 Mcg Tablet) 88 mcg PO DAILY@0600 [facility] Last Admin: 03/16/24 06:22 Dose: 88 mcg Loperamide HCl (Loperamide Hcl 2 Mg Capsule) 2 mg PO Q4H PRN PRN Reason: Loose Stool Lorazepam (Lorazepam 0.5 Mg Tablet) 0.5 mg PO DAILY PRN PRN Reason: Anxiety Last Admin: 01/29/24 09:27 Dose: 0.5 mg Magnesium Hydroxide (Milk Of Magnesia 30 Ml Oral.Susp) 30 ml PO DAILY PRN PRN Reason: Constipation Memantine (Memantine Hcl 5 Mg Tablet) 5 mg PO DAILY [facility] Last Admin: 03/16/24 09:03 Dose: 5 mg Metformin HCl (Metformin Hcl 500 Mg Tablet) 500 mg PO BEDTIME [facility] Last Admin: 03/15/24 20:54 Dose: 500 mg Pt Own (Cyclosporine ([Restasis] 1 Drop)) 1 drop EYE-BOTH BID [facility] Last Admin: 03/16/24 09:01 Dose: 1 drop Olanzapine (Olanzapine 2.5 Mg Tablet) 2.5 mg PO Q4H PRN PRN Reason: agitation/acute psychosis Simethicone (Simethicone 80 Mg Tab.Chew) 80 mg PO QIDWMHS PRN PRN Reason: bloating Last Admin: 03/16/24 09:01 Dose: 80 mg Sitagliptin Phosphate (Sitagliptin Phosphate 100 Mg Tablet) 100 mg PO DAILY [facility] Last Admin: 03/16/24 09:05 Dose: 100 mg Trazodone HCl (Trazodone Hcl 50 Mg Tablet) 50 mg PO BEDTIME [facility]X1 PRN PRN Reason: Insomnia Last Admin: 02/05/24 21:08 Dose: 50 mg Vitamin D (Cholecalciferol (Vitamin D3) 25 Mcg Tablet) 25 mcg PO DAILY [facility] Last Admin: 03/16/24 09:04 Dose: 25 mcg Zolpidem Tartrate (Zolpidem Tartrate 5 Mg Tablet) 5 mg PO BEDTIME [facility] Last Admin: 03/15/24 20:54 Dose: 5 mg Allergies Allergies Allergy/AdvReac Type Severity Reaction Status Date / Time codeine Allergy Unknown Verified 12/07/23 20:27 Assessment & Plan Assessment & Plan (1) Dementia with psychotic disturbance: Status: Acute Code(s): F03.92 - Unspecified dementia, unspecified severity, with psychotic disturbance Plan Mrs. Jin is a 83 year-old woman with hx of vascular dementia with delusions of having an affair and some paranoid delusions. Some insight that this may not be the case but pt very much believes and takes action based on delusion despite here reporting that it may not be happening. It is unclear report from [facility] as to suicidal ideation. no indication of imminent harm to self or others, but collateral information is pending from family. May consider antipsychotic. PLAN 1. Continue with same treatment. 2. Waiting for placement. Reason for continued inpatient stay Substantial Risk for: inability to function and rapid decompensation Time Spent With Patient Time: Total time managing care of this patient today ____ minutes.
[2024-03-16] MEDS: Carbamide Peroxide 6.5% Otic 15 ML DRPBTL 5 DROP EAR-RIGHT ×2 (15:56→20:30)
[2024-03-16 20:00] VITALS: BP 125/60; PULSE 80; RESP 16; TEMP 36.6; O2SAT 96
[2024-03-16] MEDS: Atorvastatin Calcium 10 MG TABLET PO (20:31)
[2024-03-16] MEDS: Donepezil HCl 5 MG TABLET PO (20:31)
[2024-03-16] MEDS: Zolpidem Tartrate 5 MG TABLET PO (20:31)
[2024-03-16] MEDS: metFORMIN HCl 500 MG TABLET PO (20:31)
[2024-03-17] MEDS: Levothyroxine Sodium 88 MCG TABLET PO (06:20)
[2024-03-17 06:26] LABS: Glucose, Whole Blood 143 mg/dL (60-115)
[2024-03-17 08:20] VITALS: BP 141/64; PULSE 69; RESP 18; TEMP 36.7; O2SAT 96
[2024-03-17] MEDS: Carbamide Peroxide 6.5% Otic 15 ML DRPBTL 5 DROP EAR-RIGHT ×2 (08:25→20:41)
[2024-03-17] MEDS: CYCLOSPORINE 1 EACH EYE-BOTH ×2 (08:25→20:40)
[2024-03-17] MEDS: Simethicone 80 MG TAB.CHEW PO ×2 (08:26→20:42)
[2024-03-17] MEDS: Acetaminophen 325 MG TABLET 650 MG PO ×2 (08:26→20:41)
[2024-03-17] MEDS: Memantine HCl 5 MG TABLET PO (08:27)
[2024-03-17] MEDS: Cholecalciferol (Vitamin D3) 25 MCG TABLET PO (08:27)
[2024-03-17] MEDS: SITagliptin Phosphate 100 MG TABLET PO (08:28)
[2024-03-17] MEDS: amLODIPine Besylate 2.5 MG TABLET PO (08:28)
[2024-03-17] MEDS: allopurinoL 100 MG TABLET PO (08:28)
[2024-03-17] MEDS: Escitalopram Oxalate 10 MG TABLET PO (08:28)
--- NOTE | 2024-03-17 18:21 | HO.PSYCHPN ---
Subjective Subjective Date of Service: 03/17/24 Reason For Visit: psychosis Interim History: c/o congestion still, agreeable to antihistamine for the next several days. otherwise no complaints or requests. per staff, no change, no notable events or behaviors. Mental Status Exam Mental Status Exam Patient Appearance: Appropriate Patient Orientation: Person and Situation Level of Consciousness: Awake and Appropriate Patient Behavior: Talkative Mood Description: Calm Affect Description: Happy Patient Cognition Impaired: Yes Ability to Follow Directions: Good Speech Pattern: Clear Hallucinations: None Delusions: Not Present Thought Process: Distracted Thought Content: positive for [place] and positive for Poverty of Content Judgement: Fair Diagnostics Vital Signs (24Hr): Vital Signs - 24 hr 03/16/24 20:00 03/17/24 08:20 Temperature 97.8 F 98.1 F Pulse Rate 80 69 Respiratory Rate 16 18 Blood Pressure 125/60 141/64 H Pulse Oximetry 96 96 Oxygen Delivery Method Room Air Room Air BMI result Body Mass Index 31.5 Labs 01/06/24 07:28 03/16/24 09:42 Labs: Laboratory Results - last 48 hr 03/16/24 03/16/24 03/17/24 06:50 09:42 06:20 Creatinine 1.64 H Estim Creat Clear Calc 27.6 Estimated GFR 30 POC Glucose 160 H 143 H Medications Medications Current Medications Acetaminophen (Acetaminophen 325 Mg Tablet) 650 mg PO Q6H PRN PRN Reason: Headache/Pain Mild Scale (1-3) Last Admin: 03/17/24 08:26 Dose: 650 mg Al Hydroxide/Mg Hydroxide (Magnesium Hydrox/Alum Hydrox 30 Ml Oral.Susp) 30 ml PO Q6H PRN PRN Reason: Heartburn/Nausea Allopurinol (Allopurinol 100 Mg Tablet) 100 mg PO DAILY [facility] Last Admin: 03/17/24 08:28 Dose: 100 mg Amlodipine Besylate (Amlodipine Besylate 2.5 Mg Tablet) 2.5 mg PO DAILY [facility]; Protocol Last Admin: 03/17/24 08:28 Dose: 2.5 mg Artificial Tears (Artificial Tears 15 Ml Drops) 2 drop EYE-BOTH Q4H PRN PRN Reason: Dry Eyes Last Admin: 03/04/24 10:40 Dose: 2 drop Atorvastatin Calcium (Atorvastatin Calcium 10 Mg Tablet) 10 mg PO BEDTIME [facility] Last Admin: 03/16/24 20:31 Dose: 10 mg Carbamide Peroxide (Carbamide Peroxide 6.5% Otic 15 Ml Drpbtl) 5 drop EAR-RIGHT BID [facility] Stop: 03/20/24 10:04 Last Admin: 03/17/24 08:25 Dose: 5 drop Cyclobenzaprine HCl (Cyclobenzaprine Hcl 5 Mg Tablet) 5 mg PO TID PRN PRN Reason: back spasm Last Admin: 03/03/24 21:12 Dose: 5 mg Diphenoxylate HCl/Atropine (Diphenoxylate/Atrop 2.5/0.025 Tablet) 1 tab PO DAILY PRN PRN Reason: loose stools Last Admin: 02/09/24 10:32 Dose: 1 tab Donepezil HCl (Donepezil Hcl 5 Mg Tablet) 5 mg PO BEDTIME [facility] Last Admin: 03/16/24 20:31 Dose: 5 mg Escitalopram Oxalate (Escitalopram Oxalate 10 Mg Tablet) 10 mg PO DAILY [facility] Last Admin: 03/17/24 08:28 Dose: 10 mg Levothyroxine Sodium (Levothyroxine Sodium 88 Mcg Tablet) 88 mcg PO DAILY@0600 [facility] Last Admin: 03/17/24 06:20 Dose: 88 mcg Loperamide HCl (Loperamide Hcl 2 Mg Capsule) 2 mg PO Q4H PRN PRN Reason: Loose Stool Loratadine (Loratadine 10 Mg Tablet) 10 mg PO BEDTIME [facility] Stop: 03/22/24 20:59 Lorazepam (Lorazepam 0.5 Mg Tablet) 0.5 mg PO DAILY PRN PRN Reason: Anxiety Last Admin: 01/29/24 09:27 Dose: 0.5 mg Magnesium Hydroxide (Milk Of Magnesia 30 Ml Oral.Susp) 30 ml PO DAILY PRN PRN Reason: Constipation Memantine (Memantine Hcl 5 Mg Tablet) 5 mg PO DAILY [facility] Last Admin: 03/17/24 08:27 Dose: 5 mg Metformin HCl (Metformin Hcl 500 Mg Tablet) 500 mg PO BEDTIME [facility] Last Admin: 03/16/24 20:31 Dose: 500 mg Pt Own (Cyclosporine ([Restasis] 1 Drop)) 1 drop EYE-BOTH BID [facility] Last Admin: 03/17/24 08:25 Dose: 1 drop Olanzapine (Olanzapine 2.5 Mg Tablet) 2.5 mg PO Q4H PRN PRN Reason: agitation/acute psychosis Simethicone (Simethicone 80 Mg Tab.Chew) 80 mg PO QIDWMHS PRN PRN Reason: bloating Last Admin: 03/17/24 08:26 Dose: 80 mg Sitagliptin Phosphate (Sitagliptin Phosphate 100 Mg Tablet) 100 mg PO DAILY [facility] Last Admin: 03/17/24 08:28 Dose: 100 mg Trazodone HCl (Trazodone Hcl 50 Mg Tablet) 50 mg PO BEDTIME [facility] PRN PRN Reason: Insomnia Last Admin: 02/05/24 21:08 Dose: 50 mg Vitamin D (Cholecalciferol (Vitamin D3) 25 Mcg Tablet) 25 mcg PO DAILY [facility] Last Admin: 03/17/24 08:27 Dose: 25 mcg Zolpidem Tartrate (Zolpidem Tartrate 5 Mg Tablet) 5 mg PO BEDTIME [facility] Last Admin: 03/16/24 20:31 Dose: 5 mg Allergies Allergies Allergy/AdvReac Type Severity Reaction Status Date / Time codeine Allergy Unknown Verified 12/07/23 20:27 Assessment & Plan Assessment & Plan (1) Dementia with psychotic disturbance: Status: Acute Code(s): F03.92 - Unspecified dementia, unspecified severity, with psychotic disturbance Plan Mrs. Jin is a 83 year-old woman with hx of vascular dementia with delusions of having an affair and some paranoid delusions. Some insight that this may not be the case but pt very much believes and takes action based on delusion despite here reporting that it may not be happening. It is unclear report from [facility] as to suicidal ideation. no indication of imminent harm to self or others, but collateral information is pending from family. May consider antipsychotic. PLAN 1. Continue with same treatment. 2. Waiting for placement. Reason for continued inpatient stay Substantial Risk for: inability to function Time Spent With Patient Time: Total time managing care of this patient today ____ minutes.
--- NOTE | 2024-03-17 19:28 | PC.NURSE ---
Claritin 10 mg ordered for HS.
[2024-03-17 19:51] LABS: Glucose, Whole Blood 145 mg/dL (60-115)
[2024-03-17 20:00] VITALS: BP 124/57; PULSE 79; RESP 16; TEMP 36.6; O2SAT 96
[2024-03-17] MEDS: Atorvastatin Calcium 10 MG TABLET PO (20:42)
[2024-03-17] MEDS: metFORMIN HCl 500 MG TABLET PO (20:42)
[2024-03-17] MEDS: Loratadine 10 MG TABLET PO (20:43)
[2024-03-17] MEDS: Zolpidem Tartrate 5 MG TABLET PO (20:43)
[2024-03-17] MEDS: Donepezil HCl 5 MG TABLET PO (20:43)
[2024-03-18] MEDS: Levothyroxine Sodium 88 MCG TABLET PO (06:42)
[2024-03-18 07:00] LABS: Glucose, Whole Blood 120 mg/dL (60-115)
[2024-03-18 08:00] VITALS: BP 135/62; PULSE 71; RESP 17; TEMP 36.6; O2SAT 96
[2024-03-18] MEDS: Cholecalciferol (Vitamin D3) 25 MCG TABLET PO (08:29)
[2024-03-18] MEDS: SITagliptin Phosphate 100 MG TABLET PO (08:29)
[2024-03-18] MEDS: allopurinoL 100 MG TABLET PO (08:29)
[2024-03-18] MEDS: Escitalopram Oxalate 10 MG TABLET PO (08:29)
[2024-03-18] MEDS: amLODIPine Besylate 2.5 MG TABLET PO (08:29)
[2024-03-18] MEDS: Memantine HCl 5 MG TABLET PO (08:30)
[2024-03-18] MEDS: CYCLOSPORINE 1 EACH EYE-BOTH ×2 (08:31→20:52)
[2024-03-18] MEDS: Carbamide Peroxide 6.5% Otic 15 ML DRPBTL 5 DROP EAR-RIGHT ×2 (08:51→20:42)
--- NOTE | 2024-03-18 12:54 | HO.PSYCHPN ---
Subjective Subjective Date of Service: 03/18/24 Reason For Visit: psychosis Subjective Notes: Conditional Voluntary Interim History: The nursing staff reported the patient had been compliant with treatment, no changes in her mental status. On interview the patient denies new symptoms, waiting for placement. Mental Status Exam Mental Status Exam Patient Appearance: Well Grooomed and Appropriate Patient Orientation: Person and Situation Level of Consciousness: Awake and Appropriate Patient Behavior: Passive Mood Description: Calm Affect Description: Constricted Patient Cognition Impaired: Yes Ability to Follow Directions: Good Speech Pattern: Clear Hallucinations: None Delusions: Ideas of Reference Thought Process: Distracted and Slowed Thinking Thought Content: positive for [place] and positive for Poverty of Content Judgement: Fair Diagnostics Vital Signs (24Hr): Vital Signs - 24 hr 03/17/24 20:00 03/18/24 08:00 Temperature 97.8 F 97.8 F Pulse Rate 79 71 Respiratory Rate 16 17 Blood Pressure 124/57 L 135/62 Pulse Oximetry 96 96 Oxygen Delivery Method Room Air Room Air BMI result Body Mass Index 31.5 Labs 01/06/24 07:28 03/16/24 09:42 Labs: Laboratory Results - last 48 hr 03/17/24 03/17/24 03/18/24 06:20 19:44 06:51 POC Glucose 143 H 145 H 120 H Medications Medications Current Medications Acetaminophen (Acetaminophen 325 Mg Tablet) 650 mg PO Q6H PRN PRN Reason: Headache/Pain Mild Scale (1-3) Last Admin: 03/17/24 20:41 Dose: 650 mg Al Hydroxide/Mg Hydroxide (Magnesium Hydrox/Alum Hydrox 30 Ml Oral.Susp) 30 ml PO Q6H PRN PRN Reason: Heartburn/Nausea Allopurinol (Allopurinol 100 Mg Tablet) 100 mg PO DAILY [facility] Last Admin: 03/18/24 08:29 Dose: 100 mg Amlodipine Besylate (Amlodipine Besylate 2.5 Mg Tablet) 2.5 mg PO DAILY [facility]; Protocol Last Admin: 03/18/24 08:29 Dose: 2.5 mg Artificial Tears (Artificial Tears 15 Ml Drops) 2 drop EYE-BOTH Q4H PRN PRN Reason: Dry Eyes Last Admin: 03/04/24 10:40 Dose: 2 drop Atorvastatin Calcium (Atorvastatin Calcium 10 Mg Tablet) 10 mg PO BEDTIME [facility] Last Admin: 03/17/24 20:42 Dose: 10 mg Carbamide Peroxide (Carbamide Peroxide 6.5% Otic 15 Ml Drpbtl) 5 drop EAR-RIGHT BID [facility] Stop: 03/20/24 10:04 Last Admin: 03/18/24 08:51 Dose: 5 drop Cyclobenzaprine HCl (Cyclobenzaprine Hcl 5 Mg Tablet) 5 mg PO TID PRN PRN Reason: back spasm Last Admin: 03/03/24 21:12 Dose: 5 mg Diphenoxylate HCl/Atropine (Diphenoxylate/Atrop 2.5/0.025 Tablet) 1 tab PO DAILY PRN PRN Reason: loose stools Last Admin: 02/09/24 10:32 Dose: 1 tab Donepezil HCl (Donepezil Hcl 5 Mg Tablet) 5 mg PO BEDTIME [facility] Last Admin: 03/17/24 20:43 Dose: 5 mg Escitalopram Oxalate (Escitalopram Oxalate 10 Mg Tablet) 10 mg PO DAILY [facility] Last Admin: 03/18/24 08:29 Dose: 10 mg Levothyroxine Sodium (Levothyroxine Sodium 88 Mcg Tablet) 88 mcg PO DAILY@0600 [facility] Last Admin: 03/18/24 06:42 Dose: 88 mcg Loperamide HCl (Loperamide Hcl 2 Mg Capsule) 2 mg PO Q4H PRN PRN Reason: Loose Stool Loratadine (Loratadine 10 Mg Tablet) 10 mg PO BEDTIME [facility] Stop: 03/22/24 20:59 Last Admin: 03/17/24 20:43 Dose: 10 mg Lorazepam (Lorazepam 0.5 Mg Tablet) 0.5 mg PO DAILY PRN PRN Reason: Anxiety Last Admin: 01/29/24 09:27 Dose: 0.5 mg Magnesium Hydroxide (Milk Of Magnesia 30 Ml Oral.Susp) 30 ml PO DAILY PRN PRN Reason: Constipation Memantine (Memantine Hcl 5 Mg Tablet) 5 mg PO DAILY [facility] Last Admin: 03/18/24 08:30 Dose: 5 mg Metformin HCl (Metformin Hcl 500 Mg Tablet) 500 mg PO BEDTIME [facility] Last Admin: 03/17/24 20:42 Dose: 500 mg Pt Own (Cyclosporine ([Restasis] 1 Drop)) 1 drop EYE-BOTH BID [facility] Last Admin: 03/18/24 08:31 Dose: 1 drop Olanzapine (Olanzapine 2.5 Mg Tablet) 2.5 mg PO Q4H PRN PRN Reason: agitation/acute psychosis Simethicone (Simethicone 80 Mg Tab.Chew) 80 mg PO QIDWMHS PRN PRN Reason: bloating Last Admin: 03/17/24 20:42 Dose: 80 mg Sitagliptin Phosphate (Sitagliptin Phosphate 100 Mg Tablet) 100 mg PO DAILY [facility] Last Admin: 03/18/24 08:29 Dose: 100 mg Trazodone HCl (Trazodone Hcl 50 Mg Tablet) 50 mg PO BEDTIME [facility] PRN PRN Reason: Insomnia Last Admin: 02/05/24 21:08 Dose: 50 mg Vitamin D (Cholecalciferol (Vitamin D3) 25 Mcg Tablet) 25 mcg PO DAILY [facility] Last Admin: 03/18/24 08:29 Dose: 25 mcg Zolpidem Tartrate (Zolpidem Tartrate 5 Mg Tablet) 5 mg PO BEDTIME [facility] Last Admin: 03/17/24 20:43 Dose: 5 mg Allergies Allergies Allergy/AdvReac Type Severity Reaction Status Date / Time codeine Allergy Unknown Verified 12/07/23 20:27 Assessment & Plan Assessment & Plan (1) Dementia with psychotic disturbance: Status: Acute Code(s): F03.92 - Unspecified dementia, unspecified severity, with psychotic disturbance Plan Mrs. Jin is a 83 year-old woman with hx of vascular dementia with delusions of having an affair and some paranoid delusions. Some insight that this may not be the case but pt very much believes and takes action based on delusion despite here reporting that it may not be happening. It is unclear report from [facility] as to suicidal ideation. no indication of imminent harm to self or others, but collateral information is pending from family. May consider antipsychotic. PLAN 1. Continue with same treatment. 2. Waiting for placement. Reason for continued inpatient stay Substantial Risk for: inability to function, rapid decompensation and med/psych decompensation Time Spent With Patient Time: Total time managing care of this patient today __20__ minutes.
[2024-03-18] MEDS: Simethicone 80 MG TAB.CHEW PO ×2 (17:21→20:42)
[2024-03-18] MEDS: Acetaminophen 325 MG TABLET 650 MG PO (17:21)
[2024-03-18 20:00] VITALS: BP 138/62; PULSE 74; RESP 18; TEMP 36.2; O2SAT 96
[2024-03-18] MEDS: Loratadine 10 MG TABLET PO (20:42)
[2024-03-18] MEDS: metFORMIN HCl 500 MG TABLET PO (20:42)
[2024-03-18] MEDS: Zolpidem Tartrate 5 MG TABLET PO (20:42)
[2024-03-18] MEDS: Atorvastatin Calcium 10 MG TABLET PO (20:42)
[2024-03-18] MEDS: Donepezil HCl 5 MG TABLET PO (20:42)
[2024-03-19] MEDS: Levothyroxine Sodium 88 MCG TABLET PO (05:29)
[2024-03-19 07:43] LABS: Glucose, Whole Blood 123 mg/dL (60-115)
--- NOTE | 2024-03-19 08:18 | HO.PSYCHPN ---
Subjective Subjective Date of Service: 03/19/24 Reason For Visit: psychosis Subjective Notes: Conditional Voluntary Interim History: The nursing staff reported the patient took all her medications she went to bed early slept all night. She had been pleasant cooperative ate 100% of her dinner. On interview the patient reported that her paperwork has been advanced and now she has [facility]. Probably she will be able to be placed this week. Mental Status Exam Mental Status Exam Patient Appearance: Appropriate Patient Orientation: Person and Situation Level of Consciousness: Awake and Appropriate Patient Behavior: Appropriate, Cooperative and Passive Mood Description: Calm Affect Description: Constricted Patient Cognition Impaired: Yes Ability to Follow Directions: Good Speech Pattern: Clear Hallucinations: None Delusions: Ideas of Reference Thought Process: Distracted and Slowed Thinking Thought Content: positive for [place] Judgement: Poor Diagnostics Vital Signs (24Hr): Vital Signs - 24 hr 03/18/24 20:00 Temperature 97.2 F Pulse Rate 74 Respiratory Rate 18 Blood Pressure 138/62 Pulse Oximetry 96 Oxygen Delivery Method Room Air BMI result Body Mass Index 31.5 Labs 01/06/24 07:28 03/16/24 09:42 Labs: Laboratory Results - last 48 hr 03/17/24 03/18/24 03/19/24 19:44 06:51 07:37 POC Glucose 145 H 120 H 123 H Medications Medications Current Medications Acetaminophen (Acetaminophen 325 Mg Tablet) 650 mg PO Q6H PRN PRN Reason: Headache/Pain Mild Scale (1-3) Last Admin: 03/18/24 17:21 Dose: 650 mg Al Hydroxide/Mg Hydroxide (Magnesium Hydrox/Alum Hydrox 30 Ml Oral.Susp) 30 ml PO Q6H PRN PRN Reason: Heartburn/Nausea Allopurinol (Allopurinol 100 Mg Tablet) [address] [facility] Last Admin: 03/18/24 08:29 Dose: 100 mg Amlodipine Besylate (Amlodipine Besylate 2.5 Mg Tablet) 2.[address] [facility]; Protocol Last Admin: 03/18/24 08:29 Dose: 2.5 mg Artificial Tears (Artificial Tears 15 Ml Drops) 2 drop EYE-BOTH Q4H PRN PRN Reason: Dry Eyes Last Admin: 03/04/24 10:40 Dose: 2 drop Atorvastatin Calcium (Atorvastatin Calcium 10 Mg Tablet) [address] [facility] Last Admin: 03/18/24 20:42 Dose: 10 mg Carbamide Peroxide (Carbamide Peroxide 6.5% Otic 15 Ml Drpbtl) 5 drop EAR-RIGHT BID [facility] Stop: 03/20/24 10:04 Last Admin: 03/18/24 20:42 Dose: 5 drop Cyclobenzaprine HCl (Cyclobenzaprine Hcl 5 Mg Tablet) 5 mg PO TID PRN PRN Reason: back spasm Last Admin: 03/03/24 21:12 Dose: 5 mg Diphenoxylate HCl/Atropine (Diphenoxylate/Atrop 2.5/0.025 Tablet) 1 tab PO DAILY PRN PRN Reason: loose stools Last Admin: 02/09/24 10:32 Dose: 1 tab Donepezil HCl (Donepezil Hcl 5 Mg Tablet) [address] [facility] Last Admin: 03/18/24 20:42 Dose: 5 mg Escitalopram Oxalate (Escitalopram Oxalate 10 Mg Tablet) [address] [facility] Last Admin: 03/18/24 08:29 Dose: 10 mg Levothyroxine Sodium (Levothyroxine Sodium 88 Mcg Tablet) 88 mcg PO DAILY@0600 [facility] Last Admin: 03/19/24 05:29 Dose: 88 mcg Loperamide HCl (Loperamide Hcl 2 Mg Capsule) 2 mg PO Q4H PRN PRN Reason: Loose Stool Loratadine (Loratadine 10 Mg Tablet) [address] [facility] Stop: 03/22/24 20:59 Last Admin: 03/18/24 20:42 Dose: 10 mg Lorazepam (Lorazepam 0.5 Mg Tablet) 0.5 mg PO DAILY PRN PRN Reason: Anxiety Last Admin: 01/29/24 09:27 Dose: 0.5 mg Magnesium Hydroxide (Milk Of Magnesia 30 Ml Oral.Susp) 30 ml PO DAILY PRN PRN Reason: Constipation Memantine (Memantine Hcl 5 Mg Tablet) [address] [facility] Last Admin: 03/18/24 08:30 Dose: 5 mg Metformin HCl (Metformin Hcl 500 Mg Tablet) [address] [facility] Last Admin: 03/18/24 20:42 Dose: 500 mg Pt Own (Cyclosporine ([Restasis] 1 Drop)) 1 drop EYE-BOTH BID [facility] Last Admin: 03/18/24 20:52 Dose: 1 drop Olanzapine (Olanzapine 2.5 Mg Tablet) 2.5 mg PO Q4H PRN PRN Reason: agitation/acute psychosis Simethicone (Simethicone 80 Mg Tab.Chew) 80 mg PO QIDWMHS PRN PRN Reason: bloating Last Admin: 03/18/24 20:42 Dose: 80 mg Sitagliptin Phosphate (Sitagliptin Phosphate 100 Mg Tablet) [address] [facility] Last Admin: 03/18/24 08:29 Dose: 100 mg Trazodone HCl (Trazodone Hcl 50 Mg Tablet) 50 mg PO BEDTIME MRX1 PRN PRN Reason: Insomnia Last Admin: 02/05/24 21:08 Dose: 50 mg Vitamin D (Cholecalciferol (Vitamin D3) 25 Mcg Tablet) [address] [facility] Last Admin: 03/18/24 08:29 Dose: 25 mcg Zolpidem Tartrate (Zolpidem Tartrate 5 Mg Tablet) 5 mg PO BEDTIME [facility] Last Admin: 03/18/24 20:42 Dose: 5 mg Allergies Allergies Allergy/AdvReac Type Severity Reaction Status Date / Time codeine Allergy Unknown Verified 12/07/23 20:27 Assessment & Plan Assessment & Plan (1) Dementia with psychotic disturbance: Status: Acute Code(s): F03.92 - Unspecified dementia, unspecified severity, with psychotic disturbance Plan Mrs. Jin is a 83 year-old woman with hx of vascular dementia with delusions of having an affair and some paranoid delusions. Some insight that this may not be the case but pt very much believes and takes action based on delusion despite here reporting that it may not be happening. It is unclear report from [facility] as to suicidal ideation. no indication of imminent harm to self or others, but collateral information is pending from family. May consider antipsychotic. PLAN 1. Continue with same treatment. 2. Waiting for placement. Reason for continued inpatient stay Substantial Risk for: inability to function, rapid decompensation and med/psych decompensation Time Spent With Patient Time: Total time managing care of this patient today __20__ minutes.
[2024-03-19 08:29] VITALS: BP 111/53; PULSE 80; RESP 16; TEMP 36; O2SAT 97
[2024-03-19] MEDS: Acetaminophen 325 MG TABLET 650 MG PO ×2 (08:33→21:21)
[2024-03-19] MEDS: CYCLOSPORINE 1 EACH EYE-BOTH ×2 (08:33→21:19)
[2024-03-19] MEDS: Carbamide Peroxide 6.5% Otic 15 ML DRPBTL 5 DROP EAR-RIGHT ×2 (08:33→21:19)
[2024-03-19] MEDS: allopurinoL 100 MG TABLET PO (08:34)
[2024-03-19] MEDS: Memantine HCl 5 MG TABLET PO (08:35)
[2024-03-19] MEDS: Simethicone 80 MG TAB.CHEW PO ×2 (08:35→21:20)
[2024-03-19] MEDS: Escitalopram Oxalate 10 MG TABLET PO (08:35)
[2024-03-19] MEDS: Cholecalciferol (Vitamin D3) 25 MCG TABLET PO (08:35)
[2024-03-19] MEDS: amLODIPine Besylate 2.5 MG TABLET PO (08:36)
[2024-03-19] MEDS: SITagliptin Phosphate 100 MG TABLET PO (08:36)
[2024-03-19 20:00] VITALS: BP 120/59; PULSE 67; RESP 16; TEMP 36.3; O2SAT 98
[2024-03-19] MEDS: Donepezil HCl 5 MG TABLET PO (21:19)
[2024-03-19] MEDS: metFORMIN HCl 500 MG TABLET PO (21:20)
[2024-03-19] MEDS: Atorvastatin Calcium 10 MG TABLET PO (21:20)
[2024-03-19] MEDS: Loratadine 10 MG TABLET PO (21:20)
[2024-03-19] MEDS: Zolpidem Tartrate 5 MG TABLET PO (21:33)
[2024-03-20] MEDS: Levothyroxine Sodium 88 MCG TABLET PO (06:48)
[2024-03-20 07:00] LABS: Glucose, Whole Blood 122 mg/dL (60-115)
[2024-03-20 08:00] VITALS: BP 145/67; PULSE 71; RESP 12; TEMP 36.4; O2SAT 96
[2024-03-20] MEDS: Acetaminophen 325 MG TABLET 650 MG PO ×2 (08:16→20:59)
[2024-03-20] MEDS: allopurinoL 100 MG TABLET PO (08:17)
[2024-03-20] MEDS: Cholecalciferol (Vitamin D3) 25 MCG TABLET PO (08:17)
[2024-03-20] MEDS: Escitalopram Oxalate 10 MG TABLET PO (08:17)
[2024-03-20] MEDS: Simethicone 80 MG TAB.CHEW PO ×2 (08:17→20:59)
[2024-03-20] MEDS: Memantine HCl 5 MG TABLET PO (08:17)
[2024-03-20 08:18] VITALS: BP 145/67
[2024-03-20] MEDS: amLODIPine Besylate 2.5 MG TABLET PO (08:18)
[2024-03-20] MEDS: CYCLOSPORINE 1 EACH EYE-BOTH ×2 (08:19→21:02)
[2024-03-20] MEDS: SITagliptin Phosphate 50 MG TABLET PO (08:19)
[2024-03-20] MEDS: Carbamide Peroxide 6.5% Otic 15 ML DRPBTL 5 DROP EAR-RIGHT (08:20)
[2024-03-20 08:43] LABS: Estimated Average Glucose 131 mg/dL; Hemoglobin A1C 135.6328 umol/L; Hemoglobin A1c % 6.2 % (<6.0); Total Hemoglobin (HGBA1C) 3097.5928 umol/L
--- NOTE | 2024-03-20 13:49 | HO.PSYCHPN ---
Subjective Subjective Date of Service: 03/20/24 Reason For Visit: psychosis Subjective Notes: Conditional Voluntary Interim History: The nursing staff reported the patient had been pleasant, cooperative no changes in her mental status. The social services aide reported that 2 facilities are looking into her case. On interview the patient denies new symptoms, waiting for placement. Mental Status Exam Mental Status Exam Patient Appearance: Appropriate Patient Orientation: Person and Situation Level of Consciousness: Awake and Appropriate Patient Behavior: Guarded and Passive Mood Description: Withdrawn Affect Description: Constricted Patient Cognition Impaired: Yes Ability to Follow Directions: Good Speech Pattern: Clear Hallucinations: None Delusions: Not Present Thought Process: Distracted and Slowed Thinking Thought Content: positive for [place] and positive for Poverty of Content Judgement: Fair Diagnostics Vital Signs (24Hr): Vital Signs - 24 hr 03/19/24 20:00 03/20/24 08:00 03/20/24 08:18 Temperature 97.4 F 97.5 F Pulse Rate 67 71 Respiratory Rate 16 12 Blood Pressure 120/59 L 145/67 H 145/67 H Pulse Oximetry 98 96 Oxygen Delivery Method Room Air BMI result Body Mass Index 31.5 Labs 01/06/24 07:28 03/16/24 09:42 Labs: Laboratory Results - last 48 hr 03/19/24 03/20/24 03/20/24 07:37 06:50 08:22 POC Glucose 123 H 122 H Estimat Average Glucose 131 Hemoglobin A1c % 6.2 H Medications Medications Current Medications Acetaminophen (Acetaminophen 325 Mg Tablet) 650 mg PO Q6H PRN PRN Reason: Headache/Pain Mild Scale (1-3) Last Admin: 03/20/24 08:16 Dose: 650 mg Al Hydroxide/Mg Hydroxide (Magnesium Hydrox/Alum Hydrox 30 Ml Oral.Susp) 30 ml PO Q6H PRN PRN Reason: Heartburn/Nausea Allopurinol (Allopurinol 100 Mg Tablet) 100 mg PO DAILY [facility] Last Admin: 03/20/24 08:17 Dose: 100 mg Amlodipine Besylate (Amlodipine Besylate 2.5 Mg Tablet) 2.5 mg PO DAILY [facility]; Protocol Last Admin: 03/20/24 08:18 Dose: 2.5 mg Artificial Tears (Artificial Tears 15 Ml Drops) 2 drop EYE-BOTH Q4H PRN PRN Reason: Dry Eyes Last Admin: 03/04/24 10:40 Dose: 2 drop Atorvastatin Calcium (Atorvastatin Calcium 10 Mg Tablet) 10 mg PO BEDTIME [facility] Last Admin: 03/19/24 21:20 Dose: 10 mg Cyclobenzaprine HCl (Cyclobenzaprine Hcl 5 Mg Tablet) 5 mg PO TID PRN PRN Reason: back spasm Last Admin: 03/03/24 21:12 Dose: 5 mg Diphenoxylate HCl/Atropine (Diphenoxylate/Atrop 2.5/0.025 Tablet) 1 tab PO DAILY PRN PRN Reason: loose stools Last Admin: 02/09/24 10:32 Dose: 1 tab Donepezil HCl (Donepezil Hcl 5 Mg Tablet) 5 mg PO BEDTIME [facility] Last Admin: 03/19/24 21:19 Dose: 5 mg Escitalopram Oxalate (Escitalopram Oxalate 10 Mg Tablet) 10 mg PO DAILY [facility] Last Admin: 03/20/24 08:17 Dose: 10 mg Levothyroxine Sodium (Levothyroxine Sodium 88 Mcg Tablet) 88 mcg PO DAILY@0600 [facility] Last Admin: 03/20/24 06:48 Dose: 88 mcg Loperamide HCl (Loperamide Hcl 2 Mg Capsule) 2 mg PO Q4H PRN PRN Reason: Loose Stool Loratadine (Loratadine 10 Mg Tablet) 10 mg PO BEDTIME [facility] Stop: 03/22/24 20:59 Last Admin: 03/19/24 21:20 Dose: 10 mg Lorazepam (Lorazepam 0.5 Mg Tablet) 0.5 mg PO DAILY PRN PRN Reason: Anxiety Last Admin: 01/29/24 09:27 Dose: 0.5 mg Magnesium Hydroxide (Milk Of Magnesia 30 Ml Oral.Susp) 30 ml PO DAILY PRN PRN Reason: Constipation Memantine (Memantine Hcl 5 Mg Tablet) 5 mg PO DAILY [facility] Last Admin: 03/20/24 08:17 Dose: 5 mg Metformin HCl (Metformin Hcl 500 Mg Tablet) 500 mg PO BEDTIME [facility] Last Admin: 03/19/24 21:20 Dose: 500 mg Pt Own (Cyclosporine ([Restasis] 1 Drop)) 1 drop EYE-BOTH BID [facility] Last Admin: 03/20/24 08:19 Dose: 1 drop Olanzapine (Olanzapine 2.5 Mg Tablet) 2.5 mg PO Q4H PRN PRN Reason: agitation/acute psychosis Simethicone (Simethicone 80 Mg Tab.Chew) 80 mg PO QIDWMHS PRN PRN Reason: bloating Last Admin: 03/20/24 08:17 Dose: 80 mg Sitagliptin Phosphate (Sitagliptin Phosphate 50 Mg Tablet) 50 mg PO DAILY [facility] Last Admin: 03/20/24 08:19 Dose: 50 mg Trazodone HCl (Trazodone Hcl 50 Mg Tablet) 50 mg PO BEDTIME MRX1 PRN PRN Reason: Insomnia Last Admin: 02/05/24 21:08 Dose: 50 mg Vitamin D (Cholecalciferol (Vitamin D3) 25 Mcg Tablet) 25 mcg PO DAILY [facility] Last Admin: 03/20/24 08:17 Dose: 25 mcg Zolpidem Tartrate (Zolpidem Tartrate 5 Mg Tablet) 5 mg PO BEDTIME [facility] Last Admin: 03/19/24 21:33 Dose: 5 mg Allergies Allergies Allergy/AdvReac Type Severity Reaction Status Date / Time codeine Allergy Unknown Verified 12/07/23 20:27 Assessment & Plan Assessment & Plan (1) Dementia with psychotic disturbance: Status: Acute Code(s): F03.92 - Unspecified dementia, unspecified severity, with psychotic disturbance Plan Mrs. Jin is a 83 year-old woman with hx of vascular dementia with delusions of having an affair and some paranoid delusions. Some insight that this may not be the case but pt very much believes and takes action based on delusion despite here reporting that it may not be happening. It is unclear report from [facility] as to suicidal ideation. no indication of imminent harm to self or others, but collateral information is pending from family. May consider antipsychotic. PLAN 1. Continue with same treatment. 2. Waiting for placement. Reason for continued inpatient stay Substantial Risk for: inability to function, rapid decompensation and med/psych decompensation Time Spent With Patient Time: Total time managing care of this patient today __20__ minutes.
[2024-03-20 20:00] VITALS: BP 165/76; PULSE 77; RESP 18; TEMP 36.3; O2SAT 97
[2024-03-20] MEDS: Donepezil HCl 5 MG TABLET PO (20:59)
[2024-03-20] MEDS: Atorvastatin Calcium 10 MG TABLET PO (20:59)
[2024-03-20] MEDS: metFORMIN HCl 500 MG TABLET PO (20:59)
[2024-03-20] MEDS: Zolpidem Tartrate 5 MG TABLET PO (20:59)
[2024-03-20] MEDS: Loratadine 10 MG TABLET PO (20:59)
[2024-03-21] MEDS: LORazepam 0.5 MG TABLET PO (03:32)
[2024-03-21] MEDS: Levothyroxine Sodium 88 MCG TABLET PO (06:09)
[2024-03-21 06:38] LABS: Glucose, Whole Blood 156 mg/dL (60-115)
[2024-03-21 07:00] VITALS: BMI 32.4
[2024-03-21 08:12] VITALS: BP 141/64; PULSE 62; RESP 17; TEMP 36; O2SAT 95
[2024-03-21] MEDS: amLODIPine Besylate 2.5 MG TABLET PO (08:14)
[2024-03-21] MEDS: Escitalopram Oxalate 10 MG TABLET PO (08:14)
[2024-03-21] MEDS: allopurinoL 100 MG TABLET PO (08:14)
[2024-03-21] MEDS: SITagliptin Phosphate 50 MG TABLET PO (08:14)
[2024-03-21] MEDS: Memantine HCl 5 MG TABLET PO (08:14)
[2024-03-21] MEDS: Cholecalciferol (Vitamin D3) 25 MCG TABLET PO (08:14)
[2024-03-21] MEDS: CYCLOSPORINE 1 EACH EYE-BOTH ×2 (08:16→20:19)
[2024-03-21] MEDS: Simethicone 80 MG TAB.CHEW PO ×2 (11:19→20:19)
[2024-03-21] MEDS: Acetaminophen 325 MG TABLET 650 MG PO ×2 (11:19→20:19)
--- NOTE | 2024-03-21 12:39 | P.PNPSI_ITS ---
Subjective Subjective Date of Service: 03/21/24 Reason For Visit: psychosis Subjective Notes: Conditional Voluntary Interim History: The nursing staff reported no changes in her mental status cooperative pleasant name very well. The patient looks a little disappointed that her placement is taking too long. Pt social engaged pleasant Medication Compliance: Yes Side effects from medications: Yes Mental Status Exam Mental Status Exam Patient Appearance: Well Grooomed and Appropriate Patient Orientation: Person and Situation Level of Consciousness: Awake and Appropriate Patient Behavior: Guarded and Passive Mood Description: Withdrawn Affect Description: Constricted Patient Cognition Impaired: Yes Ability to Follow Directions: Good Speech Pattern: Clear Hallucinations: None Delusions: Not Present Thought Process: Distracted and Slowed Thinking Thought Content: positive for [place] and positive for Poverty of Content Judgement: Fair Diagnostics Vital Signs (24Hr): Vital Signs - 24 hr 03/20/24 20:00 03/21/24 08:12 Temperature 97.3 F 96.8 F Pulse Rate 77 62 Respiratory Rate 18 17 Blood Pressure 165/76 H 141/64 H Pulse Oximetry 97 95 Oxygen Delivery Method Room Air Room Air BMI result Body Mass Index 31.5 Labs 01/06/24 07:28 03/23/24 07:47 Labs: Laboratory Results - last 48 hr 03/20/24 03/20/24 03/21/24 06:50 08:22 06:33 POC Glucose 122 H 156 H Estimat Average Glucose 131 Hemoglobin A1c % 6.2 H Medications Medications Current Medications Acetaminophen (Acetaminophen 325 Mg Tablet) 650 mg PO Q6H PRN PRN Reason: Headache/Pain Mild Scale (1-3) Last Admin: 03/21/24 11:19 Dose: 650 mg Al Hydroxide/Mg Hydroxide (Magnesium Hydrox/Alum Hydrox 30 Ml Oral.Susp) 30 ml PO Q6H PRN PRN Reason: Heartburn/Nausea Allopurinol (Allopurinol 100 Mg Tablet) 100 mg PO DAILY [facility] Last Admin: 03/21/24 08:14 Dose: 100 mg Amlodipine Besylate (Amlodipine Besylate 2.5 Mg Tablet) 2.5 mg PO DAILY [facility]; Protocol Last Admin: 03/21/24 08:14 Dose: 2.5 mg Artificial Tears (Artificial Tears 15 Ml Drops) 2 drop EYE-BOTH Q4H PRN PRN Reason: Dry Eyes Last Admin: 03/04/24 10:40 Dose: 2 drop Atorvastatin Calcium (Atorvastatin Calcium 10 Mg Tablet) 10 mg PO BEDTIME [facility] Last Admin: 03/20/24 20:59 Dose: 10 mg Cyclobenzaprine HCl (Cyclobenzaprine Hcl 5 Mg Tablet) 5 mg PO TID PRN PRN Reason: back spasm Last Admin: 03/03/24 21:12 Dose: 5 mg Diphenoxylate HCl/Atropine (Diphenoxylate/Atrop 2.5/0.025 Tablet) 1 tab PO DAILY PRN PRN Reason: loose stools Last Admin: 02/09/24 10:32 Dose: 1 tab Donepezil HCl (Donepezil Hcl 5 Mg Tablet) 5 mg PO BEDTIME [facility] [place] Last Admin: 03/20/24 20:59 Dose: 5 mg Escitalopram Oxalate (Escitalopram Oxalate 10 Mg Tablet) 10 mg PO DAILY [facility] [place] Last Admin: 03/21/24 08:14 Dose: 10 mg Levothyroxine Sodium (Levothyroxine Sodium 88 Mcg Tablet) 88 mcg PO DAILY@0600 [facility] [place] Last Admin: 03/21/24 06:09 Dose: 88 mcg Loperamide HCl (Loperamide Hcl 2 Mg Capsule) 2 mg PO Q4H PRN PRN Reason: Loose Stool Loratadine (Loratadine 10 Mg Tablet) 10 mg PO BEDTIME [facility] Stop: 03/22/24 20:59 Last Admin: 03/20/24 20:59 Dose: 10 mg Lorazepam (Lorazepam 0.5 Mg Tablet) 0.5 mg PO DAILY PRN PRN Reason: Anxiety Last Admin: 03/21/24 03:32 Dose: 0.5 mg Magnesium Hydroxide (Milk Of Magnesia 30 Ml Oral.Susp) 30 ml PO DAILY PRN PRN Reason: Constipation Memantine (Memantine Hcl 5 Mg Tablet) 5 mg PO DAILY [facility] Last Admin: 03/21/24 08:14 Dose: 5 mg Metformin HCl (Metformin Hcl 500 Mg Tablet) 500 mg PO BEDTIME [facility] Last Admin: 03/20/24 20:59 Dose: 500 mg Pt Own (Cyclosporine ([Restasis] 1 Drop)) 1 drop EYE-BOTH BID [facility] [place] Last Admin: 03/21/24 08:16 Dose: 1 drop Olanzapine (Olanzapine 2.5 Mg Tablet) 2.5 mg PO Q4H PRN PRN Reason: agitation/acute psychosis Simethicone (Simethicone 80 Mg Tab.Chew) 80 mg PO QIDWMHS PRN PRN Reason: bloating Last Admin: 03/21/24 11:19 Dose: 80 mg Sitagliptin Phosphate (Sitagliptin Phosphate 50 Mg Tablet) 50 mg PO DAILY [facility] Last Admin: 03/21/24 08:14 Dose: 50 mg Trazodone HCl (Trazodone Hcl 50 Mg Tablet) 50 mg PO BEDTIME [facility] PRN PRN Reason: Insomnia Last Admin: 02/05/24 21:08 Dose: 50 mg Vitamin D (Cholecalciferol (Vitamin D3) 25 Mcg Tablet) 25 mcg PO DAILY [facility] [place] Last Admin: 03/21/24 08:14 Dose: 25 mcg Zolpidem Tartrate (Zolpidem Tartrate 5 Mg Tablet) 5 mg PO BEDTIME [facility] [place] Last Admin: 03/20/24 20:59 Dose: 5 mg Allergies Allergies Allergy/AdvReac Type Severity Reaction Status Date / Time codeine Allergy Unknown Verified 12/07/23 20:27 Assessment & Plan Assessment & Plan (1) Dementia with psychotic disturbance: Status: Acute Code(s): F03.92 - Unspecified dementia, unspecified severity, with psychotic disturbance Plan Mrs. Jin is a 83 year-old woman with hx of vascular dementia with delusions of having an affair and some paranoid delusions. Some insight that this may not be the case but pt very much believes and takes action based on delusion despite here reporting that it may not be happening. It is unclear report from [facility] as to suicidal ideation. no indication of imminent harm to self or others, but collateral information is pending from family. May consider antipsychotic. PLAN 1. Continue with same treatment. 2. Waiting for placement. 03/21/24 Cont d/c planning pt pleasant engaged Reason for continued inpatient stay Substantial Risk for: rapid decompensation Time Spent With Patient Time: Total time managing care of this patient today ____ minutes.
[2024-03-21 20:17] VITALS: BP 152/67; PULSE 79; RESP 16; TEMP 36.3; O2SAT 97
[2024-03-21] MEDS: Loratadine 10 MG TABLET PO (20:19)
[2024-03-21] MEDS: Zolpidem Tartrate 5 MG TABLET PO (20:19)
[2024-03-21] MEDS: metFORMIN HCl 500 MG TABLET PO (20:19)
[2024-03-21] MEDS: Atorvastatin Calcium 10 MG TABLET PO (20:19)
[2024-03-21] MEDS: Donepezil HCl 5 MG TABLET PO (20:19)
[2024-03-22] MEDS: Levothyroxine Sodium 88 MCG TABLET PO (05:40)
[2024-03-22 05:51] LABS: Glucose, Whole Blood 131 mg/dL (60-115)
[2024-03-22 08:00] VITALS: BP 157/72; PULSE 71; RESP 16; TEMP 36.3; O2SAT 95
[2024-03-22] MEDS: SITagliptin Phosphate 50 MG TABLET PO (09:45)
[2024-03-22] MEDS: Cholecalciferol (Vitamin D3) 25 MCG TABLET PO (09:45)
[2024-03-22] MEDS: allopurinoL 100 MG TABLET PO (09:45)
[2024-03-22 09:46] VITALS: BP 157/72
[2024-03-22] MEDS: Escitalopram Oxalate 10 MG TABLET PO (09:46)
[2024-03-22] MEDS: amLODIPine Besylate 2.5 MG TABLET PO (09:46)
[2024-03-22] MEDS: Memantine HCl 5 MG TABLET PO (09:47)
[2024-03-22] MEDS: CYCLOSPORINE 1 EACH EYE-BOTH ×2 (09:47→20:25)
[2024-03-22] MEDS: Acetaminophen 325 MG TABLET 650 MG PO ×2 (11:46→20:26)
--- NOTE | 2024-03-22 14:57 | P.PNPSI_ITS ---
Subjective Subjective Date of Service: 03/22/24 Reason For Visit: psychosis Subjective Notes: Conditional Voluntary Interim History: The nursing staff reported the patient had been cooperative pleasant, no changes in her mental status. The psychotherapist social worker reported there to facilities that are interested in her case. On interview the patient denies new symptoms, waiting for placement Mental Status Exam Mental Status Exam Patient Appearance: Well Grooomed and Appropriate Patient Orientation: Person and Situation Level of Consciousness: Awake and Appropriate Patient Behavior: Guarded and Passive Mood Description: Withdrawn Affect Description: Constricted Patient Cognition Impaired: Yes Ability to Follow Directions: Good Speech Pattern: Clear Hallucinations: None Delusions: Not Present Thought Process: Distracted and Slowed Thinking Thought Content: positive for [place] and positive for Poverty of Content Judgement: Fair Diagnostics Vital Signs (24Hr): Vital Signs - 24 hr 03/21/24 20:17 03/22/24 08:00 03/22/24 09:46 Temperature 97.4 F 97.4 F Pulse Rate 79 71 Respiratory Rate 16 16 Blood Pressure 152/67 H 157/72 H 157/72 H Pulse Oximetry 97 95 Oxygen Delivery Method Room Air Room Air BMI result Body Mass Index 32.4 Labs 01/06/24 07:28 03/16/24 09:42 Labs: Laboratory Results - last 48 hr 03/21/24 03/22/24 06:33 05:42 POC Glucose 156 H 131 H Medications Medications Current Medications Acetaminophen (Acetaminophen 325 Mg Tablet) 650 mg PO Q6H PRN PRN Reason: Headache/Pain Mild Scale (1-3) Last Admin: 03/22/24 11:46 Dose: 650 mg Al Hydroxide/Mg Hydroxide (Magnesium Hydrox/Alum Hydrox 30 Ml Oral.Susp) 30 ml PO Q6H PRN PRN Reason: Heartburn/Nausea Allopurinol (Allopurinol 100 Mg Tablet) 100 mg PO DAILY [facility] Last Admin: 03/22/24 09:45 Dose: 100 mg Amlodipine Besylate (Amlodipine Besylate 2.5 Mg Tablet) 2.5 mg PO DAILY [facility]; Protocol Last Admin: 03/22/24 09:46 Dose: 2.5 mg Artificial Tears (Artificial Tears 15 Ml Drops) 2 drop EYE-BOTH Q4H PRN PRN Reason: Dry Eyes Last Admin: 03/04/24 10:40 Dose: 2 drop Atorvastatin Calcium (Atorvastatin Calcium 10 Mg Tablet) 10 mg PO BEDTIME [facility] Last Admin: 03/21/24 20:19 Dose: 10 mg Cyclobenzaprine HCl (Cyclobenzaprine Hcl 5 Mg Tablet) 5 mg PO TID PRN PRN Reason: back spasm Last Admin: 03/03/24 21:12 Dose: 5 mg Diphenoxylate HCl/Atropine (Diphenoxylate/Atrop 2.5/0.025 Tablet) 1 tab PO DAILY PRN PRN Reason: loose stools Last Admin: 02/09/24 10:32 Dose: 1 tab Donepezil HCl (Donepezil Hcl 5 Mg Tablet) 5 mg PO BEDTIME [facility] Last Admin: 03/21/24 20:19 Dose: 5 mg Escitalopram Oxalate (Escitalopram Oxalate 10 Mg Tablet) 10 mg PO DAILY [facility] Last Admin: 03/22/24 09:46 Dose: 10 mg Levothyroxine Sodium (Levothyroxine Sodium 88 Mcg Tablet) 88 mcg PO DAILY@0600 [facility] Last Admin: 03/22/24 05:40 Dose: 88 mcg Loperamide HCl (Loperamide Hcl 2 Mg Capsule) 2 mg PO Q4H PRN PRN Reason: Loose Stool Loratadine (Loratadine 10 Mg Tablet) 10 mg PO BEDTIME [facility] Stop: 03/22/24 20:59 Last Admin: 03/21/24 20:19 Dose: 10 mg Lorazepam (Lorazepam 0.5 Mg Tablet) 0.5 mg PO DAILY PRN PRN Reason: Anxiety Last Admin: 03/21/24 03:32 Dose: 0.5 mg Magnesium Hydroxide (Milk Of Magnesia 30 Ml Oral.Susp) 30 ml PO DAILY PRN PRN Reason: Constipation Memantine (Memantine Hcl 5 Mg Tablet) 5 mg PO DAILY [facility] Last Admin: 03/22/24 09:47 Dose: 5 mg Metformin HCl (Metformin Hcl 500 Mg Tablet) 500 mg PO BEDTIME [facility] Last Admin: 03/21/24 20:19 Dose: 500 mg Pt Own (Cyclosporine ([Restasis] 1 Drop)) 1 drop EYE-BOTH BID [facility] Last Admin: 03/22/24 09:47 Dose: 1 drop Olanzapine (Olanzapine 2.5 Mg Tablet) 2.5 mg PO Q4H PRN PRN Reason: agitation/acute psychosis Simethicone (Simethicone 80 Mg Tab.Chew) 80 mg PO QIDWMHS PRN PRN Reason: bloating Last Admin: 03/21/24 20:19 Dose: 80 mg Sitagliptin Phosphate (Sitagliptin Phosphate 50 Mg Tablet) 50 mg PO DAILY [facility] Last Admin: 03/22/24 09:45 Dose: 50 mg Trazodone HCl (Trazodone Hcl 50 Mg Tablet) 50 mg PO BEDTIME MRX1 PRN PRN Reason: Insomnia Last Admin: 02/05/24 21:08 Dose: 50 mg Vitamin D (Cholecalciferol (Vitamin D3) 25 Mcg Tablet) 25 mcg PO DAILY [facility] Last Admin: 03/22/24 09:45 Dose: 25 mcg Zolpidem Tartrate (Zolpidem Tartrate 5 Mg Tablet) 5 mg PO BEDTIME [facility] Last Admin: 03/21/24 20:19 Dose: 5 mg Allergies Allergies Allergy/AdvReac Type Severity Reaction Status Date / Time codeine Allergy Unknown Verified 12/07/23 20:27 Assessment & Plan Assessment & Plan (1) Dementia with psychotic disturbance: Status: Acute Code(s): F03.92 - Unspecified dementia, unspecified severity, with psychotic disturbance Plan Mrs. Jni is a 83 year-old woman with hx of vascular dementia with delusions of having an affair and some paranoid delusions. Some insight that this may not be the case but pt very much believes and takes action based on delusion despite here reporting that it may not be happening. It is unclear report from [facility] as to suicidal ideation. no indication of imminent harm to self or others, but collateral information is pending from family. May consider antipsychotic. PLAN 1. Continue with same treatment. 2. Waiting for placement. Reason for continued inpatient stay Substantial Risk for: inability to function, rapid decompensation and med/psych decompensation Time Spent With Patient Time: Total time managing care of this patient today __20__ minutes.
[2024-03-22 20:00] VITALS: BP 118/57; PULSE 84; RESP 18; TEMP 36.2; O2SAT 96
[2024-03-22] MEDS: Donepezil HCl 5 MG TABLET PO (20:26)
[2024-03-22] MEDS: Atorvastatin Calcium 10 MG TABLET PO (20:26)
[2024-03-22] MEDS: Simethicone 80 MG TAB.CHEW PO (20:26)
[2024-03-22] MEDS: metFORMIN HCl 500 MG TABLET PO (20:26)
[2024-03-22] MEDS: Zolpidem Tartrate 5 MG TABLET PO (20:26)
[2024-03-23] MEDS: Levothyroxine Sodium 88 MCG TABLET PO (06:26)
[2024-03-23 07:02] LABS: Glucose, Whole Blood 148 mg/dL (60-115)
[2024-03-23 08:44] LABS: Creatinine Clr Calc Pharmacy 33.3; Estimated Glomerular Filt Rate 36
[2024-03-23 09:44] VITALS: BP 135/62; PULSE 69; RESP 15; TEMP 36.9; O2SAT 96
[2024-03-23] MEDS: CYCLOSPORINE 1 EACH EYE-BOTH ×2 (09:45→20:18)
[2024-03-23] MEDS: Memantine HCl 5 MG TABLET PO (09:46)
[2024-03-23] MEDS: Escitalopram Oxalate 10 MG TABLET PO (09:46)
[2024-03-23] MEDS: amLODIPine Besylate 2.5 MG TABLET PO (09:46)
[2024-03-23] MEDS: Cholecalciferol (Vitamin D3) 25 MCG TABLET PO (09:46)
[2024-03-23] MEDS: SITagliptin Phosphate 50 MG TABLET PO (09:46)
[2024-03-23] MEDS: allopurinoL 100 MG TABLET PO (09:47)
[2024-03-23] MEDS: Simethicone 80 MG TAB.CHEW PO ×2 (10:14→20:19)
[2024-03-23] MEDS: Acetaminophen 325 MG TABLET 650 MG PO ×2 (10:14→20:19)
[2024-03-23 20:00] VITALS: BP 129/58; PULSE 82; RESP 78; TEMP 36.4; O2SAT 96
[2024-03-23] MEDS: metFORMIN HCl 500 MG TABLET PO (20:18)
[2024-03-23] MEDS: Zolpidem Tartrate 5 MG TABLET PO (20:19)
[2024-03-23] MEDS: Donepezil HCl 5 MG TABLET PO (20:19)
[2024-03-23] MEDS: Atorvastatin Calcium 10 MG TABLET PO (20:19)
--- NOTE | 2024-03-23 23:09 | HO.PSYCHPN ---
Subjective Subjective Date of Service: 03/23/24 Reason For Visit: psychosis Interim History: pt cooperative accepting tx no significant complaints Medication Compliance: Yes Mental Status Exam Mental Status Exam Patient Appearance: Appropriate Patient Orientation: Person and Situation Level of Consciousness: Awake and Appropriate Patient Behavior: Guarded and Passive Mood Description: Calm and Appropriate Affect Description: Constricted Patient Cognition Impaired: Yes Ability to Follow Directions: Good Speech Pattern: Clear Hallucinations: None Delusions: Not Present Thought Process: Distracted and Slowed Thinking Thought Content: positive for [place] and positive for Poverty of Content Judgement: Fair Judgement and Insight: minimally engaged when seen Diagnostics Vital Signs (24Hr): Vital Signs - 24 hr 03/23/24 09:44 03/23/24 20:00 Temperature 98.4 F 97.5 F Pulse Rate 69 82 Respiratory Rate 15 78 H Blood Pressure 135/62 129/58 L Pulse Oximetry 96 96 Oxygen Delivery Method Room Air Room Air BMI result Body Mass Index 32.4 Labs 01/06/24 07:28 03/30/24 07:13 Labs: Laboratory Results - last 48 hr 03/22/24 03/23/24 03/23/24 05:42 06:30 07:47 Hold Purple Top SEE NOTE Creatinine 1.38 Estim Creat Clear Calc 33.3 Estimated GFR 36 POC Glucose 131 H 148 H Medications Medications Current Medications Acetaminophen (Acetaminophen 325 Mg Tablet) 650 mg PO Q6H PRN PRN Reason: Headache/Pain Mild Scale (1-3) Last Admin: 03/23/24 20:19 Dose: 650 mg Al Hydroxide/Mg Hydroxide (Magnesium Hydrox/Alum Hydrox 30 Ml Oral.Susp) 30 ml PO Q6H PRN PRN Reason: Heartburn/Nausea Allopurinol (Allopurinol 100 Mg Tablet) 100 mg PO DAILY [facility] Last Admin: 03/23/24 09:47 Dose: 100 mg Amlodipine Besylate (Amlodipine Besylate 2.5 Mg Tablet) 2.5 mg PO DAILY [facility]; Protocol Last Admin: 03/23/24 09:46 Dose: 2.5 mg Artificial Tears (Artificial Tears 15 Ml Drops) 2 drop EYE-BOTH Q4H PRN PRN Reason: Dry Eyes Last Admin: 03/04/24 10:40 Dose: 2 drop Atorvastatin Calcium (Atorvastatin Calcium 10 Mg Tablet) 10 mg PO BEDTIME [facility] Last Admin: 03/23/24 20:19 Dose: 10 mg Diphenoxylate HCl/Atropine (Diphenoxylate/Atrop 2.5/0.025 Tablet) 1 tab PO DAILY PRN PRN Reason: loose stools Last Admin: 02/09/24 10:32 Dose: 1 tab Donepezil HCl (Donepezil Hcl 5 Mg Tablet) 5 mg PO BEDTIME [facility] Last Admin: 03/23/24 20:19 Dose: 5 mg Escitalopram Oxalate (Escitalopram Oxalate 10 Mg Tablet) 10 mg PO DAILY [facility] Last Admin: 03/23/24 09:46 Dose: 10 mg Levothyroxine Sodium (Levothyroxine Sodium 88 Mcg Tablet) 88 mcg PO DAILY@0600 [facility] Last Admin: 03/23/24 06:26 Dose: 88 mcg Loperamide HCl (Loperamide Hcl 2 Mg Capsule) 2 mg PO Q4H PRN PRN Reason: Loose Stool Lorazepam (Lorazepam 0.5 Mg Tablet) 0.5 mg PO DAILY PRN PRN Reason: Anxiety Last Admin: 03/21/24 03:32 Dose: 0.5 mg Magnesium Hydroxide (Milk Of Magnesia 30 Ml Oral.Susp) 30 ml PO DAILY PRN PRN Reason: Constipation Memantine (Memantine Hcl 5 Mg Tablet) 5 mg PO DAILY [facility] Last Admin: 03/23/24 09:46 Dose: 5 mg Metformin HCl (Metformin Hcl 500 Mg Tablet) 500 mg PO BEDTIME [facility] Last Admin: 03/23/24 20:18 Dose: 500 mg Pt Own (Cyclosporine ([Restasis] 1 Drop)) 1 drop EYE-BOTH BID [facility] Last Admin: 03/23/24 20:18 Dose: 1 drop Olanzapine (Olanzapine 2.5 Mg Tablet) 2.5 mg PO Q4H PRN PRN Reason: agitation/acute psychosis Simethicone (Simethicone 80 Mg Tab.Chew) 80 mg PO QIDWMHS PRN PRN Reason: bloating Last Admin: 03/23/24 20:19 Dose: 80 mg Sitagliptin Phosphate (Sitagliptin Phosphate 50 Mg Tablet) 50 mg PO DAILY [facility] Last Admin: 03/23/24 09:46 Dose: 50 mg Trazodone HCl (Trazodone Hcl 50 Mg Tablet) 50 mg PO BEDTIME MRX1 PRN PRN Reason: Insomnia Last Admin: 02/05/24 21:08 Dose: 50 mg Vitamin D (Cholecalciferol (Vitamin D3) 25 Mcg Tablet) 25 mcg PO DAILY [facility] Last Admin: 03/23/24 09:46 Dose: 25 mcg Zolpidem Tartrate (Zolpidem Tartrate 5 Mg Tablet) 5 mg PO BEDTIME [facility] Last Admin: 03/23/24 20:19 Dose: 5 mg Allergies Allergies Allergy/AdvReac Type Severity Reaction Status Date / Time codeine Allergy Unknown Verified 12/07/23 20:27 Assessment & Plan Assessment & Plan (1) Dementia with psychotic disturbance: Status: Acute Code(s): F03.92 - Unspecified dementia, unspecified severity, with psychotic disturbance Plan Pt calm some delusional concern generally cooperative pleasant cont plan of care . Informed Consent: further education needed Reason for continued inpatient stay Substantial Risk for: inability to function and rapid decompensation Time Spent With Patient Time: Total time managing care of this patient today ____ minutes.
[2024-03-24] MEDS: Levothyroxine Sodium 88 MCG TABLET PO (05:27)
[2024-03-24 05:40] LABS: Glucose, Whole Blood 141 mg/dL (60-115)
[2024-03-24 11:46] VITALS: BP 150/67; PULSE 71; RESP 15; TEMP 36.4; O2SAT 93
[2024-03-24] MEDS: CYCLOSPORINE 1 EACH EYE-BOTH ×2 (11:47→19:55)
[2024-03-24] MEDS: Cholecalciferol (Vitamin D3) 25 MCG TABLET PO (11:47)
[2024-03-24] MEDS: Simethicone 80 MG TAB.CHEW PO ×2 (11:47→19:56)
[2024-03-24] MEDS: allopurinoL 100 MG TABLET PO (11:48)
[2024-03-24] MEDS: amLODIPine Besylate 2.5 MG TABLET PO (11:48)
[2024-03-24] MEDS: Memantine HCl 5 MG TABLET PO (11:48)
[2024-03-24] MEDS: Escitalopram Oxalate 10 MG TABLET PO (11:48)
[2024-03-24] MEDS: SITagliptin Phosphate 50 MG TABLET PO (11:48)
[2024-03-24] MEDS: Acetaminophen 325 MG TABLET 650 MG PO ×2 (11:48→19:56)
--- NOTE | 2024-03-24 12:57 | P.PNPSI_ITS ---
Subjective Subjective Date of Service: 03/24/24 Reason For Visit: psychosis Subjective Notes: Conditional Voluntary Interim History: The nursing staff reported no changes in her mental status cooperative pleasant in milieu The patient looks a little disappointed that her placement is taking too long. On interview cooperative pleasant. Medication Compliance: Yes Mental Status Exam Mental Status Exam Patient Appearance: Appropriate Patient Orientation: Person and Situation Level of Consciousness: Awake and Appropriate Patient Behavior: Guarded and Passive Mood Description: Calm and Appropriate Affect Description: Constricted Patient Cognition Impaired: Yes Ability to Follow Directions: Good Speech Pattern: Clear Hallucinations: None Delusions: Not Present Thought Process: Distracted and Slowed Thinking Thought Content: positive for [place] and positive for Poverty of Content Judgement: Fair Diagnostics Vital Signs (24Hr): Vital Signs - 24 hr 03/23/24 20:00 03/24/24 11:46 Temperature 97.5 F 97.5 F Pulse Rate 82 71 Respiratory Rate 78 H 15 Blood Pressure 129/58 L 150/67 H Pulse Oximetry 96 93 Oxygen Delivery Method Room Air Room Air BMI result Body Mass Index 32.4 Labs 01/06/24 07:28 04/13/24 07:21 Labs: Laboratory Results - last 48 hr 03/23/24 03/23/24 03/24/24 06:30 07:47 05:31 Hold Purple Top SEE NOTE Creatinine 1.38 Estim Creat Clear Calc 33.3 Estimated GFR 36 POC Glucose 148 H 141 H Medications Medications Current Medications Acetaminophen (Acetaminophen 325 Mg Tablet) 650 mg PO Q6H PRN PRN Reason: Headache/Pain Mild Scale (1-3) Last Admin: 03/24/24 11:48 Dose: 650 mg Al Hydroxide/Mg Hydroxide (Magnesium Hydrox/Alum Hydrox 30 Ml Oral.Susp) 30 ml PO Q6H PRN PRN Reason: Heartburn/Nausea Allopurinol (Allopurinol 100 Mg Tablet) 100 mg PO DAILY [facility] Last Admin: 03/24/24 11:48 Dose: 100 mg Amlodipine Besylate (Amlodipine Besylate 2.5 Mg Tablet) 2.5 mg PO DAILY [facility]; Protocol Last Admin: 03/24/24 11:48 Dose: 2.5 mg Artificial Tears (Artificial Tears 15 Ml Drops) 2 drop EYE-BOTH Q4H PRN PRN Reason: Dry Eyes Last Admin: 03/04/24 10:40 Dose: 2 drop Atorvastatin Calcium (Atorvastatin Calcium 10 Mg Tablet) 10 mg PO BEDTIME [facility] Last Admin: 03/23/24 20:19 Dose: 10 mg Diphenoxylate HCl/Atropine (Diphenoxylate/Atrop 2.5/0.025 Tablet) 1 tab PO DAILY PRN PRN Reason: loose stools Last Admin: 02/09/24 10:32 Dose: 1 tab Donepezil HCl (Donepezil Hcl 5 Mg Tablet) 5 mg PO BEDTIME [facility] Last Admin: 03/23/24 20:19 Dose: 5 mg Escitalopram Oxalate (Escitalopram Oxalate 10 Mg Tablet) 10 mg PO DAILY [facility] Last Admin: 03/24/24 11:48 Dose: 10 mg Levothyroxine Sodium (Levothyroxine Sodium 88 Mcg Tablet) 88 mcg PO DAILY@0600 [facility] Last Admin: 03/24/24 05:27 Dose: 88 mcg Loperamide HCl (Loperamide Hcl 2 Mg Capsule) 2 mg PO Q4H PRN PRN Reason: Loose Stool Lorazepam (Lorazepam 0.5 Mg Tablet) 0.5 mg PO DAILY PRN PRN Reason: Anxiety Last Admin: 03/21/24 03:32 Dose: 0.5 mg Magnesium Hydroxide (Milk Of Magnesia 30 Ml Oral.Susp) 30 ml PO DAILY PRN PRN Reason: Constipation Memantine (Memantine Hcl 5 Mg Tablet) 5 mg PO DAILY [facility] Last Admin: 03/24/24 11:48 Dose: 5 mg Metformin HCl (Metformin Hcl 500 Mg Tablet) 500 mg PO BEDTIME [facility] Last Admin: 03/23/24 20:18 Dose: 500 mg Pt Own (Cyclosporine ([Restasis] 1 Drop)) 1 drop EYE-BOTH BID [facility] Last Admin: 03/24/24 11:47 Dose: 1 drop Olanzapine (Olanzapine 2.5 Mg Tablet) 2.5 mg PO Q4H PRN PRN Reason: agitation/acute psychosis Simethicone (Simethicone 80 Mg Tab.Chew) 80 mg PO QIDWMHS PRN PRN Reason: bloating Last Admin: 03/24/24 11:47 Dose: 80 mg Sitagliptin Phosphate (Sitagliptin Phosphate 50 Mg Tablet) 50 mg PO DAILY [facility] Last Admin: 03/24/24 11:48 Dose: 50 mg Trazodone HCl (Trazodone Hcl 50 Mg Tablet) 50 mg PO BEDTIME [facility] PRN PRN Reason: Insomnia Last Admin: 02/05/24 21:08 Dose: 50 mg Vitamin D (Cholecalciferol (Vitamin D3) 25 Mcg Tablet) 25 mcg PO DAILY [facility] Last Admin: 03/24/24 11:47 Dose: 25 mcg Zolpidem Tartrate (Zolpidem Tartrate 5 Mg Tablet) 5 mg PO BEDTIME [facility] Last Admin: 03/23/24 20:19 Dose: 5 mg Allergies Allergies Allergy/AdvReac Type Severity Reaction Status Date / Time codeine Allergy Unknown Verified 12/07/23 20:27 Assessment & Plan Assessment & Plan (1) Dementia with psychotic disturbance: Status: Acute Code(s): F03.92 - Unspecified dementia, unspecified severity, with psychotic disturbance Plan Mrs. Jin is a 83 year-old woman with hx of vascular dementia with delusions of having an affair and some paranoid delusions. Some insight that this may not be the case but pt very much believes and takes action based on delusion despite here reporting that it may not be happening. It is unclear report from [facility] as to suicidal ideation. no indication of imminent harm to self or others, but collateral information is pending from family. May consider antipsychotic. PLAN 1. Continue with same treatment. 2. Waiting for placement. Reason for continued inpatient stay Substantial Risk for: inability to function and rapid decompensation Time Spent With Patient Time: Total time managing care of this patient today ____ minutes.
[2024-03-24 19:53] VITALS: BP 127/74; PULSE 98; RESP 16; TEMP 36.3; O2SAT 97
[2024-03-24] MEDS: metFORMIN HCl 500 MG TABLET PO (19:56)
[2024-03-24] MEDS: Atorvastatin Calcium 10 MG TABLET PO (19:56)
[2024-03-24] MEDS: Donepezil HCl 5 MG TABLET PO (19:56)
[2024-03-24] MEDS: Zolpidem Tartrate 5 MG TABLET PO (19:57)
[2024-03-25] MEDS: Levothyroxine Sodium 88 MCG TABLET PO (05:41)
[2024-03-25 05:46] LABS: Glucose, Whole Blood 146 mg/dL (60-115)
[2024-03-25 08:00] VITALS: BP 147/67; PULSE 78; RESP 16; TEMP 36.2; O2SAT 97
[2024-03-25] MEDS: SITagliptin Phosphate 50 MG TABLET PO (09:22)
[2024-03-25] MEDS: allopurinoL 100 MG TABLET PO (09:22)
[2024-03-25 09:23] VITALS: BP 147/67
[2024-03-25] MEDS: Cholecalciferol (Vitamin D3) 25 MCG TABLET PO (09:23)
[2024-03-25] MEDS: Memantine HCl 5 MG TABLET PO (09:23)
[2024-03-25] MEDS: CYCLOSPORINE 1 EACH EYE-BOTH ×2 (09:23→20:33)
[2024-03-25] MEDS: Escitalopram Oxalate 10 MG TABLET PO (09:23)
[2024-03-25] MEDS: amLODIPine Besylate 2.5 MG TABLET PO (09:23)
[2024-03-25] MEDS: Acetaminophen 325 MG TABLET 650 MG PO ×2 (09:33→20:31)
--- NOTE | 2024-03-25 16:47 | HO.PSYCHPN ---
Subjective Subjective Date of Service: 03/25/24 Reason For Visit: psychosis Subjective Notes: Conditional Voluntary Interim History: The nursing staff reported no changes in her mental status cooperative pleasant name very well. The patient looks a little disappointed that her placement is taking too long. On interview the patient denies new symptoms, waiting for placement. Mental Status Exam Mental Status Exam Patient Appearance: Well Grooomed and Appropriate Patient Orientation: Person and Situation Level of Consciousness: Awake and Appropriate Patient Behavior: Guarded and Passive Mood Description: Withdrawn Affect Description: Constricted Patient Cognition Impaired: Yes Ability to Follow Directions: Good Speech Pattern: Clear Hallucinations: None Delusions: Not Present Thought Process: Distracted and Slowed Thinking Thought Content: positive for [place] and positive for Poverty of Content Judgement: Fair Diagnostics Vital Signs (24Hr): Vital Signs - 24 hr 03/24/24 19:53 03/25/24 08:00 03/25/24 09:23 Temperature 97.3 F 97.1 F Pulse Rate 98 78 Respiratory Rate 16 16 Blood Pressure 127/74 147/67 H 147/67 H Pulse Oximetry 97 97 Oxygen Delivery Method Room Air Room Air BMI result Body Mass Index 32.4 Labs 01/06/24 07:28 03/23/24 07:47 Labs: Laboratory Results - last 48 hr 03/24/24 03/25/24 05:31 05:40 POC Glucose 141 H 146 H Medications Medications Current Medications Acetaminophen (Acetaminophen 325 Mg Tablet) 650 mg PO Q6H PRN PRN Reason: Headache/Pain Mild Scale (1-3) Last Admin: 03/25/24 09:33 Dose: 650 mg Al Hydroxide/Mg Hydroxide (Magnesium Hydrox/Alum Hydrox 30 Ml Oral.Susp) 30 ml PO Q6H PRN PRN Reason: Heartburn/Nausea Allopurinol (Allopurinol 100 Mg Tablet) 100 mg PO DAILY [facility] Last Admin: 03/25/24 09:22 Dose: 100 mg Amlodipine Besylate (Amlodipine Besylate 2.5 Mg Tablet) 2.5 mg PO DAILY [facility]; Protocol Last Admin: 03/25/24 09:23 Dose: 2.5 mg Artificial Tears (Artificial Tears 15 Ml Drops) 2 drop EYE-BOTH Q4H PRN PRN Reason: Dry Eyes Last Admin: 03/04/24 10:40 Dose: 2 drop Atorvastatin Calcium (Atorvastatin Calcium 10 Mg Tablet) 10 mg PO BEDTIME [facility] Last Admin: 03/24/24 19:56 Dose: 10 mg Diphenoxylate HCl/Atropine (Diphenoxylate/Atrop 2.5/0.025 Tablet) 1 tab PO DAILY PRN PRN Reason: loose stools Last Admin: 02/09/24 10:32 Dose: 1 tab Donepezil HCl (Donepezil Hcl 5 Mg Tablet) 5 mg PO BEDTIME [facility] Last Admin: 03/24/24 19:56 Dose: 5 mg Escitalopram Oxalate (Escitalopram Oxalate 10 Mg Tablet) 10 mg PO DAILY [facility] Last Admin: 03/25/24 09:23 Dose: 10 mg Levothyroxine Sodium (Levothyroxine Sodium 88 Mcg Tablet) 88 mcg PO DAILY@0600 [facility] Last Admin: 03/25/24 05:41 Dose: 88 mcg Loperamide HCl (Loperamide Hcl 2 Mg Capsule) 2 mg PO Q4H PRN PRN Reason: Loose Stool Lorazepam (Lorazepam 0.5 Mg Tablet) 0.5 mg PO DAILY PRN PRN Reason: Anxiety Last Admin: 03/21/24 03:32 Dose: 0.5 mg Magnesium Hydroxide (Milk Of Magnesia 30 Ml Oral.Susp) 30 ml PO DAILY PRN PRN Reason: Constipation Memantine (Memantine Hcl 5 Mg Tablet) 5 mg PO DAILY [facility] Last Admin: 03/25/24 09:23 Dose: 5 mg Metformin HCl (Metformin Hcl 500 Mg Tablet) 500 mg PO BEDTIME [facility] Last Admin: 03/24/24 19:56 Dose: 500 mg Pt Own (Cyclosporine ([Restasis] 1 Drop)) 1 drop EYE-BOTH BID [facility] Last Admin: 03/25/24 09:23 Dose: 1 drop Olanzapine (Olanzapine 2.5 Mg Tablet) 2.5 mg PO Q4H PRN PRN Reason: agitation/acute psychosis Simethicone (Simethicone 80 Mg Tab.Chew) 80 mg PO QIDWMHS PRN PRN Reason: bloating Last Admin: 03/24/24 19:56 Dose: 80 mg Sitagliptin Phosphate (Sitagliptin Phosphate 50 Mg Tablet) 50 mg PO DAILY [facility] Last Admin: 03/25/24 09:22 Dose: 50 mg Trazodone HCl (Trazodone Hcl 50 Mg Tablet) 50 mg PO BEDTIME MRX1 PRN PRN Reason: Insomnia Last Admin: 02/05/24 21:08 Dose: 50 mg Vitamin D (Cholecalciferol (Vitamin D3) 25 Mcg Tablet) 25 mcg PO DAILY [facility] Last Admin: 03/25/24 09:23 Dose: 25 mcg Zolpidem Tartrate (Zolpidem Tartrate 5 Mg Tablet) 5 mg PO BEDTIME [facility] Last Admin: 03/24/24 19:57 Dose: 5 mg Allergies Allergies Allergy/AdvReac Type Severity Reaction Status Date / Time codeine Allergy Unknown Verified 12/07/23 20:27 Assessment & Plan Assessment & Plan (1) Dementia with psychotic disturbance: Status: Acute Code(s): F03.92 - Unspecified dementia, unspecified severity, with psychotic disturbance Plan Mrs. Jin is a 83 year-old woman with hx of vascular dementia with delusions of having an affair and some paranoid delusions. Some insight that this may not be the case but pt very much believes and takes action based on delusion despite here reporting that it may not be happening. It is unclear report from [facility] as to suicidal ideation. no indication of imminent harm to self or others, but collateral information is pending from family. May consider antipsychotic. PLAN 1. Continue with same treatment. 2. Waiting for placement. Reason for continued inpatient stay Substantial Risk for: inability to function, rapid decompensation and med/psych decompensation Time Spent With Patient Time: Total time managing care of this patient today __20__ minutes.
[2024-03-25 20:00] VITALS: BP 141/63; PULSE 80; RESP 18; TEMP 36.4; O2SAT 97
[2024-03-25] MEDS: metFORMIN HCl 500 MG TABLET PO (20:30)
[2024-03-25] MEDS: Donepezil HCl 5 MG TABLET PO (20:30)
[2024-03-25] MEDS: Atorvastatin Calcium 10 MG TABLET PO (20:30)
[2024-03-25] MEDS: Simethicone 80 MG TAB.CHEW PO (20:30)
[2024-03-25] MEDS: Zolpidem Tartrate 5 MG TABLET PO (20:31)
[2024-03-26] MEDS: Levothyroxine Sodium 88 MCG TABLET PO (06:04)
[2024-03-26 06:41] LABS: Glucose, Whole Blood 140 mg/dL (60-115)
[2024-03-26 08:15] VITALS: BP 174/77; PULSE 84; RESP 18; TEMP 36.6; O2SAT 97
[2024-03-26] MEDS: Cholecalciferol (Vitamin D3) 25 MCG TABLET PO (09:13)
[2024-03-26] MEDS: amLODIPine Besylate 2.5 MG TABLET PO (09:13)
[2024-03-26] MEDS: Escitalopram Oxalate 10 MG TABLET PO (09:13)
[2024-03-26] MEDS: Memantine HCl 5 MG TABLET PO (09:13)
[2024-03-26] MEDS: Simethicone 80 MG TAB.CHEW PO ×2 (09:13→21:08)
[2024-03-26] MEDS: Acetaminophen 325 MG TABLET 650 MG PO ×2 (09:13→21:08)
[2024-03-26] MEDS: CYCLOSPORINE 1 EACH EYE-BOTH ×2 (09:13→21:09)
[2024-03-26] MEDS: allopurinoL 100 MG TABLET PO (09:13)
[2024-03-26] MEDS: SITagliptin Phosphate 50 MG TABLET PO (09:13)
--- NOTE | 2024-03-26 16:47 | P.PNPSI_ITS ---
Subjective Subjective Date of Service: 03/26/24 Reason For Visit: psychosis Subjective Notes: Conditional Voluntary Interim History: The nursing staff reported the patient slept poorly last night since a peer was very loud. On interview the patient denies new symptoms, waiting for placement. Mental Status Exam Mental Status Exam Patient Appearance: Appropriate Patient Orientation: Person and Situation Level of Consciousness: Awake and Appropriate Patient Behavior: Guarded and Passive Mood Description: Withdrawn Affect Description: Constricted Patient Cognition Impaired: Yes Ability to Follow Directions: Good Speech Pattern: Clear Hallucinations: None Delusions: Not Present Thought Process: Distracted and Slowed Thinking Thought Content: positive for [place] and positive for Poverty of Content Judgement: Fair Diagnostics Vital Signs (24Hr): Vital Signs - 24 hr 03/25/24 20:00 03/26/24 08:15 Temperature 97.6 F 97.9 F Pulse Rate 80 84 Respiratory Rate 18 18 Blood Pressure 141/63 H 174/77 H Pulse Oximetry 97 97 Oxygen Delivery Method Room Air Room Air BMI result Body Mass Index 32.4 Labs 01/06/24 07:28 03/23/24 07:47 Labs: Laboratory Results - last 48 hr 03/25/24 03/26/24 05:40 06:07 POC Glucose 146 H 140 H Medications Medications Current Medications Acetaminophen (Acetaminophen 325 Mg Tablet) 650 mg PO Q6H PRN PRN Reason: Headache/Pain Mild Scale (1-3) Last Admin: 03/26/24 09:13 Dose: 650 mg Al Hydroxide/Mg Hydroxide (Magnesium Hydrox/Alum Hydrox 30 Ml Oral.Susp) 30 ml PO Q6H PRN PRN Reason: Heartburn/Nausea Allopurinol (Allopurinol 100 Mg Tablet) 100 mg PO DAILY [facility] Last Admin: 03/26/24 09:13 Dose: 100 mg Amlodipine Besylate (Amlodipine Besylate 2.5 Mg Tablet) 2.5 mg PO DAILY [facility]; Protocol Last Admin: 03/26/24 09:13 Dose: 2.5 mg Artificial Tears (Artificial Tears 15 Ml Drops) 2 drop EYE-BOTH Q4H PRN PRN Reason: Dry Eyes Last Admin: 03/04/24 10:40 Dose: 2 drop Atorvastatin Calcium (Atorvastatin Calcium 10 Mg Tablet) 10 mg PO BEDTIME [facility] Last Admin: 03/25/24 20:30 Dose: 10 mg Diphenoxylate HCl/Atropine (Diphenoxylate/Atrop 2.5/0.025 Tablet) 1 tab PO DAILY PRN PRN Reason: loose stools Last Admin: 02/09/24 10:32 Dose: 1 tab Donepezil HCl (Donepezil Hcl 5 Mg Tablet) 5 mg PO BEDTIME [facility] Last Admin: 03/25/24 20:30 Dose: 5 mg Escitalopram Oxalate (Escitalopram Oxalate 10 Mg Tablet) 10 mg PO DAILY [facility] Last Admin: 03/26/24 09:13 Dose: 10 mg Levothyroxine Sodium (Levothyroxine Sodium 88 Mcg Tablet) 88 mcg PO DAILY@0600 [facility] Last Admin: 03/26/24 06:04 Dose: 88 mcg Loperamide HCl (Loperamide Hcl 2 Mg Capsule) 2 mg PO Q4H PRN PRN Reason: Loose Stool Lorazepam (Lorazepam 0.5 Mg Tablet) 0.5 mg PO DAILY PRN PRN Reason: Anxiety Last Admin: 03/21/24 03:32 Dose: 0.5 mg Magnesium Hydroxide (Milk Of Magnesia 30 Ml Oral.Susp) 30 ml PO DAILY PRN PRN Reason: Constipation Memantine (Memantine Hcl 5 Mg Tablet) 5 mg PO DAILY [facility] Last Admin: 03/26/24 09:13 Dose: 5 mg Metformin HCl (Metformin Hcl 500 Mg Tablet) 500 mg PO BEDTIME [facility] Last Admin: 03/25/24 20:30 Dose: 500 mg Pt Own (Cyclosporine ([Restasis] 1 Drop)) 1 drop EYE-BOTH BID [facility] Last Admin: 03/26/24 09:13 Dose: 1 drop Olanzapine (Olanzapine 2.5 Mg Tablet) 2.5 mg PO Q4H PRN PRN Reason: agitation/acute psychosis Simethicone (Simethicone 80 Mg Tab.Chew) 80 mg PO QIDWMHS PRN PRN Reason: bloating Last Admin: 03/26/24 09:13 Dose: 80 mg Sitagliptin Phosphate (Sitagliptin Phosphate 50 Mg Tablet) 50 mg PO DAILY [facility] Last Admin: 03/26/24 09:13 Dose: 50 mg Trazodone HCl (Trazodone Hcl 50 Mg Tablet) 50 mg PO BEDTIME MRX1 PRN PRN Reason: Insomnia Last Admin: 02/05/24 21:08 Dose: 50 mg Vitamin D (Cholecalciferol (Vitamin D3) 25 Mcg Tablet) 25 mcg PO DAILY [facility] Last Admin: 03/26/24 09:13 Dose: 25 mcg Zolpidem Tartrate (Zolpidem Tartrate 5 Mg Tablet) 5 mg PO BEDTIME [facility] Last Admin: 03/25/24 20:31 Dose: 5 mg Allergies Allergies Allergy/AdvReac Type Severity Reaction Status Date / Time codeine Allergy Unknown Verified 12/07/23 20:27 Assessment & Plan Assessment & Plan (1) Dementia with psychotic disturbance: Status: Acute Code(s): F03.92 - Unspecified dementia, unspecified severity, with psychotic disturbance Plan Mrs. Jin is a 83 year-old woman with hx of vascular dementia with delusions of having an affair and some paranoid delusions. Some insight that this may not be the case but pt very much believes and takes action based on delusion despite here reporting that it may not be happening. It is unclear report from [facility] as to suicidal ideation. no indication of imminent harm to self or others, but collateral information is pending from family. May consider antipsychotic. PLAN 1. Continue with same treatment. 2. Waiting for placement. Reason for continued inpatient stay Substantial Risk for: inability to function, rapid decompensation and med/psych decompensation Time Spent With Patient Time: Total time managing care of this patient today __20__ minutes.
[2024-03-26 20:00] VITALS: BP 136/60; PULSE 72; RESP 16; TEMP 37; O2SAT 97
[2024-03-26] MEDS: Zolpidem Tartrate 5 MG TABLET PO (21:08)
[2024-03-26] MEDS: metFORMIN HCl 500 MG TABLET PO (21:08)
[2024-03-26] MEDS: Atorvastatin Calcium 10 MG TABLET PO (21:08)
[2024-03-26] MEDS: Donepezil HCl 5 MG TABLET PO (21:09)
[2024-03-27] MEDS: Levothyroxine Sodium 88 MCG TABLET PO (06:43)
[2024-03-27 06:44] LABS: Glucose, Whole Blood 132 mg/dL (60-115)
[2024-03-27 08:00] VITALS: BP 135/60; PULSE 70; RESP 17; TEMP 36.8; O2SAT 95
[2024-03-27] MEDS: Escitalopram Oxalate 10 MG TABLET PO (09:14)
[2024-03-27] MEDS: SITagliptin Phosphate 50 MG TABLET PO (09:14)
[2024-03-27] MEDS: amLODIPine Besylate 2.5 MG TABLET PO (09:14)
[2024-03-27] MEDS: Memantine HCl 5 MG TABLET PO (09:14)
[2024-03-27] MEDS: Cholecalciferol (Vitamin D3) 25 MCG TABLET PO (09:14)
[2024-03-27] MEDS: allopurinoL 100 MG TABLET PO (09:15)
[2024-03-27] MEDS: CYCLOSPORINE 1 EACH EYE-BOTH ×2 (09:16→20:51)
[2024-03-27] MEDS: Simethicone 80 MG TAB.CHEW PO (09:21)
[2024-03-27] MEDS: Acetaminophen 325 MG TABLET 650 MG PO ×2 (09:21→20:56)
--- NOTE | 2024-03-27 13:48 | HO.PSYCHPN ---
Subjective Subjective Date of Service: 03/27/24 Reason For Visit: psychosis Subjective Notes: Conditional Voluntary Interim History: The nursing staff reported the patient had been pleasant cooperative fully compliant with treatment. On interview the patient denies new symptoms, waiting for placement. Her daughter is going to see other facilities for placement tomorrow. Mental Status Exam Mental Status Exam Patient Appearance: Well Grooomed and Appropriate Patient Orientation: Person and Situation Level of Consciousness: Awake and Appropriate Patient Behavior: Guarded and Passive Mood Description: Withdrawn Affect Description: Constricted Patient Cognition Impaired: Yes Ability to Follow Directions: Good Speech Pattern: Clear Hallucinations: None Delusions: Not Present Thought Process: Distracted and Slowed Thinking Thought Content: positive for [place] and positive for Poverty of Content Judgement: Fair Diagnostics Vital Signs (24Hr): Vital Signs - 24 hr 03/26/24 20:00 03/27/24 08:00 Temperature 98.6 F 98.2 F Pulse Rate 72 70 Respiratory Rate 16 17 Blood Pressure 136/60 135/60 Pulse Oximetry 97 95 Oxygen Delivery Method Room Air BMI result Body Mass Index 32.4 Labs 01/06/24 07:28 03/23/24 07:47 Labs: Laboratory Results - last 48 hr 03/26/24 03/27/24 06:07 06:35 POC Glucose 140 H 132 H Medications Medications Current Medications Acetaminophen (Acetaminophen 325 Mg Tablet) 650 mg PO Q6H PRN PRN Reason: Headache/Pain Mild Scale (1-3) Last Admin: 03/27/24 09:21 Dose: 650 mg Al Hydroxide/Mg Hydroxide (Magnesium Hydrox/Alum Hydrox 30 Ml Oral.Susp) 30 ml PO Q6H PRN PRN Reason: Heartburn/Nausea Allopurinol (Allopurinol 100 Mg Tablet) 100 mg PO DAILY [facility] Last Admin: 03/27/24 09:15 Dose: 100 mg Amlodipine Besylate (Amlodipine Besylate 2.5 Mg Tablet) 2.5 mg PO DAILY [facility]; Protocol Last Admin: 03/27/24 09:14 Dose: 2.5 mg Artificial Tears (Artificial Tears 15 Ml Drops) 2 drop EYE-BOTH Q4H PRN PRN Reason: Dry Eyes Last Admin: 03/04/24 10:40 Dose: 2 drop Atorvastatin Calcium (Atorvastatin Calcium 10 Mg Tablet) 10 mg PO BEDTIME [facility] Last Admin: 03/26/24 21:08 Dose: 10 mg Diphenoxylate HCl/Atropine (Diphenoxylate/Atrop 2.5/0.025 Tablet) 1 tab PO DAILY PRN PRN Reason: loose stools Last Admin: 02/09/24 10:32 Dose: 1 tab Donepezil HCl (Donepezil Hcl 5 Mg Tablet) 5 mg PO BEDTIME [facility] Last Admin: 03/26/24 21:09 Dose: 5 mg Escitalopram Oxalate (Escitalopram Oxalate 10 Mg Tablet) 10 mg PO DAILY [facility] Last Admin: 03/27/24 09:14 Dose: 10 mg Levothyroxine Sodium (Levothyroxine Sodium 88 Mcg Tablet) 88 mcg PO DAILY@0600 [facility] Last Admin: 03/27/24 06:43 Dose: 88 mcg Loperamide HCl (Loperamide Hcl 2 Mg Capsule) 2 mg PO Q4H PRN PRN Reason: Loose Stool Lorazepam (Lorazepam 0.5 Mg Tablet) 0.5 mg PO DAILY PRN PRN Reason: Anxiety Last Admin: 03/21/24 03:32 Dose: 0.5 mg Magnesium Hydroxide (Milk Of Magnesia 30 Ml Oral.Susp) 30 ml PO DAILY PRN PRN Reason: Constipation Memantine (Memantine Hcl 5 Mg Tablet) 5 mg PO DAILY [facility] Last Admin: 03/27/24 09:14 Dose: 5 mg Metformin HCl (Metformin Hcl 500 Mg Tablet) 500 mg PO BEDTIME [facility] Last Admin: 03/26/24 21:08 Dose: 500 mg Pt Own (Cyclosporine ([Restasis] 1 Drop)) 1 drop EYE-BOTH BID [facility] Last Admin: 03/27/24 09:16 Dose: 1 drop Olanzapine (Olanzapine 2.5 Mg Tablet) 2.5 mg PO Q4H PRN PRN Reason: agitation/acute psychosis Simethicone (Simethicone 80 Mg Tab.Chew) 80 mg PO QIDWMHS PRN PRN Reason: bloating Last Admin: 03/27/24 09:21 Dose: 80 mg Sitagliptin Phosphate (Sitagliptin Phosphate 50 Mg Tablet) 50 mg PO DAILY [facility] Last Admin: 03/27/24 09:14 Dose: 50 mg Trazodone HCl (Trazodone Hcl 50 Mg Tablet) 50 mg PO BEDTIME MRX1 PRN PRN Reason: Insomnia Last Admin: 02/05/24 21:08 Dose: 50 mg Vitamin D (Cholecalciferol (Vitamin D3) 25 Mcg Tablet) 25 mcg PO DAILY [facility] Last Admin: 03/27/24 09:14 Dose: 25 mcg Zolpidem Tartrate (Zolpidem Tartrate 5 Mg Tablet) 5 mg PO BEDTIME [facility] Last Admin: 03/26/24 21:08 Dose: 5 mg Allergies Allergies Allergy/AdvReac Type Severity Reaction Status Date / Time codeine Allergy Unknown Verified 12/07/23 20:27 Assessment & Plan Assessment & Plan (1) Dementia with psychotic disturbance: Status: Acute Code(s): F03.92 - Unspecified dementia, unspecified severity, with psychotic disturbance Plan Mrs. Jin is a 83 year-old woman with hx of vascular dementia with delusions of having an affair and some paranoid delusions. Some insight that this may not be the case but pt very much believes and takes action based on delusion despite here reporting that it may not be happening. It is unclear report from [facility] as to suicidal ideation. no indication of imminent harm to self or others, but collateral information is pending from family. May consider antipsychotic. PLAN 1. Continue with same treatment. 2. Waiting for placement. Reason for continued inpatient stay Substantial Risk for: inability to function, rapid decompensation and med/psych decompensation Time Spent With Patient Time: Total time managing care of this patient today __20__ minutes.
[2024-03-27 20:00] VITALS: BP 129/61; PULSE 83; RESP 16; TEMP 36.7; O2SAT 96
[2024-03-27] MEDS: Donepezil HCl 5 MG TABLET PO (20:49)
[2024-03-27] MEDS: Atorvastatin Calcium 10 MG TABLET PO (20:49)
[2024-03-27] MEDS: metFORMIN HCl 500 MG TABLET PO (20:50)
[2024-03-27] MEDS: Zolpidem Tartrate 5 MG TABLET PO (20:50)
[2024-03-28] MEDS: Levothyroxine Sodium 88 MCG TABLET PO (06:25)
[2024-03-28 07:02] LABS: Glucose, Whole Blood 125 mg/dL (60-115)
[2024-03-28 09:05] VITALS: BP 168/73; PULSE 70; RESP 16; TEMP 36.6; O2SAT 96
[2024-03-28] MEDS: allopurinoL 100 MG TABLET PO (09:06)
[2024-03-28] MEDS: Escitalopram Oxalate 10 MG TABLET PO (09:06)
[2024-03-28] MEDS: SITagliptin Phosphate 50 MG TABLET PO (09:06)
[2024-03-28] MEDS: amLODIPine Besylate 2.5 MG TABLET PO (09:06)
[2024-03-28] MEDS: Cholecalciferol (Vitamin D3) 25 MCG TABLET PO (09:07)
[2024-03-28] MEDS: CYCLOSPORINE 1 EACH EYE-BOTH ×2 (09:07→21:00)
[2024-03-28] MEDS: Memantine HCl 5 MG TABLET PO (09:07)
--- NOTE | 2024-03-28 14:17 | P.PNPSI_ITS ---
Subjective Subjective Date of Service: 03/28/24 Reason For Visit: psychosis Subjective Notes: Conditional Voluntary Interim History: The nursing staff reported no changes in her mental status pleasant cooperative. The social worker palliative care reported the family went to [facility] and tore around that. On interview the patient denies new symptoms eager to be discharged to a proper facility. No safety concerns. Mental Status Exam Mental Status Exam Patient Appearance: Appropriate Patient Orientation: Person and Situation Level of Consciousness: Awake and Appropriate Patient Behavior: Guarded and Passive Mood Description: Withdrawn Affect Description: Calm Patient Cognition Impaired: Yes Ability to Follow Directions: Good Speech Pattern: Clear Hallucinations: None Delusions: Not Present Thought Process: Distracted and Slowed Thinking Thought Content: positive for [place] and positive for Poverty of Content Judgement: Poor Diagnostics Vital Signs (24Hr): Vital Signs - 24 hr 03/27/24 20:00 03/28/24 09:05 Temperature 98.1 F 97.9 F Pulse Rate 83 70 Respiratory Rate 16 16 Blood Pressure 129/61 168/73 H Pulse Oximetry 96 96 Oxygen Delivery Method Room Air Room Air BMI result Body Mass Index 32.4 Labs 01/06/24 07:28 03/23/24 07:47 Labs: Laboratory Results - last 48 hr 03/27/24 03/28/24 06:35 06:24 POC Glucose 132 H 125 H Medications Medications Current Medications Acetaminophen (Acetaminophen 325 Mg Tablet) 650 mg PO Q6H PRN PRN Reason: Headache/Pain Mild Scale (1-3) Last Admin: 03/27/24 20:56 Dose: 650 mg Al Hydroxide/Mg Hydroxide (Magnesium Hydrox/Alum Hydrox 30 Ml Oral.Susp) 30 ml PO Q6H PRN PRN Reason: Heartburn/Nausea Allopurinol (Allopurinol 100 Mg Tablet) 100 mg PO DAILY [facility] Last Admin: 03/28/24 09:06 Dose: 100 mg Amlodipine Besylate (Amlodipine Besylate 2.5 Mg Tablet) 2.5 mg PO DAILY [facility]; Protocol Last Admin: 03/28/24 09:06 Dose: 2.5 mg Artificial Tears (Artificial Tears 15 Ml Drops) 2 drop EYE-BOTH Q4H PRN PRN Reason: Dry Eyes Last Admin: 03/04/24 10:40 Dose: 2 drop Atorvastatin Calcium (Atorvastatin Calcium 10 Mg Tablet) 10 mg PO BEDTIME [facility] Last Admin: 03/27/24 20:49 Dose: 10 mg Diphenoxylate HCl/Atropine (Diphenoxylate/Atrop 2.5/0.025 Tablet) 1 tab PO DAILY PRN PRN Reason: loose stools Last Admin: 02/09/24 10:32 Dose: 1 tab Donepezil HCl (Donepezil Hcl 5 Mg Tablet) 5 mg PO BEDTIME [facility] Last Admin: 03/27/24 20:49 Dose: 5 mg Escitalopram Oxalate (Escitalopram Oxalate 10 Mg Tablet) 10 mg PO DAILY [facility] Last Admin: 03/28/24 09:06 Dose: 10 mg Levothyroxine Sodium (Levothyroxine Sodium 88 Mcg Tablet) 88 mcg PO DAILY@0600 [facility] Last Admin: 03/28/24 06:25 Dose: 88 mcg Loperamide HCl (Loperamide Hcl 2 Mg Capsule) 2 mg PO Q4H PRN PRN Reason: Loose Stool Lorazepam (Lorazepam 0.5 Mg Tablet) 0.5 mg PO DAILY PRN PRN Reason: Anxiety Last Admin: 03/21/24 03:32 Dose: 0.5 mg Magnesium Hydroxide (Milk Of Magnesia 30 Ml Oral.Susp) 30 ml PO DAILY PRN PRN Reason: Constipation Memantine (Memantine Hcl 5 Mg Tablet) 5 mg PO DAILY [facility] Last Admin: 03/28/24 09:07 Dose: 5 mg Metformin HCl (Metformin Hcl 500 Mg Tablet) 500 mg PO BEDTIME [facility] Last Admin: 03/27/24 20:50 Dose: 500 mg Pt Own (Cyclosporine ([Restasis] 1 Drop)) 1 drop EYE-BOTH BID [facility] Last Admin: 03/28/24 09:07 Dose: 1 drop Olanzapine (Olanzapine 2.5 Mg Tablet) 2.5 mg PO Q4H PRN PRN Reason: agitation/acute psychosis Simethicone (Simethicone 80 Mg Tab.Chew) 80 mg PO QIDWMHS PRN PRN Reason: bloating Last Admin: 03/27/24 09:21 Dose: 80 mg Sitagliptin Phosphate (Sitagliptin Phosphate 50 Mg Tablet) 50 mg PO DAILY [facility] Last Admin: 03/28/24 09:06 Dose: 50 mg Trazodone HCl (Trazodone Hcl 50 Mg Tablet) 50 mg PO BEDTIME MRX1 PRN PRN Reason: Insomnia Last Admin: 02/05/24 21:08 Dose: 50 mg Vitamin D (Cholecalciferol (Vitamin D3) 25 Mcg Tablet) 25 mcg PO DAILY [facility] Last Admin: 03/28/24 09:07 Dose: 25 mcg Zolpidem Tartrate (Zolpidem Tartrate 5 Mg Tablet) 5 mg PO BEDTIME [facility] Last Admin: 03/27/24 20:50 Dose: 5 mg Allergies Allergies Allergy/AdvReac Type Severity Reaction Status Date / Time codeine Allergy Unknown Verified 12/07/23 20:27 Assessment & Plan Assessment & Plan (1) Dementia with psychotic disturbance: Status: Acute Code(s): F03.92 - Unspecified dementia, unspecified severity, with psychotic disturbance Plan Mrs. Jin is a 83 year-old woman with hx of vascular dementia with delusions of having an affair and some paranoid delusions. Some insight that this may not be the case but pt very much believes and takes action based on delusion despite here reporting that it may not be happening. It is unclear report from [facility] as to suicidal ideation. no indication of imminent harm to self or others, but collateral information is pending from family. May consider antipsychotic. PLAN 1. Continue with same treatment. 2. Waiting for placement. Reason for continued inpatient stay Substantial Risk for: inability to function, rapid decompensation and med/psych decompensation Time Spent With Patient Time: Total time managing care of this patient today __20__ minutes.
[2024-03-28 20:00] VITALS: BP 145/63; PULSE 72; RESP 16; TEMP 36.1; O2SAT 98
[2024-03-28] MEDS: Acetaminophen 325 MG TABLET 650 MG PO (21:00)
[2024-03-28] MEDS: metFORMIN HCl 500 MG TABLET PO (21:00)
[2024-03-28] MEDS: Simethicone 80 MG TAB.CHEW PO (21:00)
[2024-03-28] MEDS: Atorvastatin Calcium 10 MG TABLET PO (21:00)
[2024-03-28] MEDS: Donepezil HCl 5 MG TABLET PO (21:00)
[2024-03-28] MEDS: Zolpidem Tartrate 5 MG TABLET PO (21:00)
[2024-03-29] MEDS: Levothyroxine Sodium 88 MCG TABLET PO (05:49)
[2024-03-29 06:37] LABS: Glucose, Whole Blood 117 mg/dL (60-115)
[2024-03-29 08:00] VITALS: BP 114/56; PULSE 64; RESP 16; TEMP 36.1; O2SAT 95
[2024-03-29] MEDS: amLODIPine Besylate 2.5 MG TABLET PO (08:16)
[2024-03-29] MEDS: SITagliptin Phosphate 50 MG TABLET PO (08:16)
[2024-03-29] MEDS: Cholecalciferol (Vitamin D3) 25 MCG TABLET PO (08:17)
[2024-03-29] MEDS: Escitalopram Oxalate 10 MG TABLET PO (08:17)
[2024-03-29] MEDS: allopurinoL 100 MG TABLET PO (08:17)
[2024-03-29] MEDS: Acetaminophen 325 MG TABLET 650 MG PO ×2 (08:18→20:48)
[2024-03-29] MEDS: Memantine HCl 5 MG TABLET PO (08:18)
[2024-03-29] MEDS: CYCLOSPORINE 1 EACH EYE-BOTH ×2 (08:19→20:48)
--- NOTE | 2024-03-29 08:22 | HO.PSYCHPN ---
Subjective Subjective Date of Service: 03/29/24 Reason For Visit: psychosis Subjective Notes: Conditional Voluntary Interim History: The nursing staff reported the patient had been compliant with treatment, no changes in her mental status. On interview the patient denies new symptoms, waiting for placement. Mental Status Exam Mental Status Exam Patient Appearance: Appropriate Patient Orientation: Person and Situation Level of Consciousness: Awake and Appropriate Patient Behavior: Guarded and Passive Mood Description: Withdrawn Affect Description: Constricted Patient Cognition Impaired: Yes Ability to Follow Directions: Good Speech Pattern: Clear Hallucinations: None Delusions: Not Present Thought Process: Distracted and Slowed Thinking Thought Content: positive for [place] and positive for Circumstantial Judgement: Fair Diagnostics Vital Signs (24Hr): Vital Signs - 24 hr 03/28/24 09:05 03/28/24 20:00 03/29/24 08:00 Temperature 97.9 F 97 F 96.9 F Pulse Rate 70 72 64 Respiratory Rate 16 16 16 Blood Pressure 168/73 H 145/63 H 114/56 L Pulse Oximetry 96 98 95 Oxygen Delivery Method Room Air Room Air Room Air BMI result Body Mass Index 32.4 Labs 01/06/24 07:28 03/23/24 07:47 Labs: Laboratory Results - last 48 hr 03/28/24 03/29/24 06:24 05:48 POC Glucose 125 H 117 H Medications Medications Current Medications Acetaminophen (Acetaminophen 325 Mg Tablet) 650 mg PO Q6H PRN PRN Reason: Headache/Pain Mild Scale (1-3) Last Admin: 03/29/24 08:18 Dose: 650 mg Al Hydroxide/Mg Hydroxide (Magnesium Hydrox/Alum Hydrox 30 Ml Oral.Susp) 30 ml PO Q6H PRN PRN Reason: Heartburn/Nausea Allopurinol (Allopurinol 100 Mg Tablet) 100 mg PO DAILY [facility] Last Admin: 03/29/24 08:17 Dose: 100 mg Amlodipine Besylate (Amlodipine Besylate 2.5 Mg Tablet) 2.5 mg PO DAILY [facility]; Protocol Last Admin: 03/29/24 08:16 Dose: 2.5 mg Artificial Tears (Artificial Tears 15 Ml Drops) 2 drop EYE-BOTH Q4H PRN PRN Reason: Dry Eyes Last Admin: 03/04/24 10:40 Dose: 2 drop Atorvastatin Calcium (Atorvastatin Calcium 10 Mg Tablet) 10 mg PO BEDTIME [facility] Last Admin: 03/28/24 21:00 Dose: 10 mg Diphenoxylate HCl/Atropine (Diphenoxylate/Atrop 2.5/0.025 Tablet) 1 tab PO DAILY PRN PRN Reason: loose stools Last Admin: 02/09/24 10:32 Dose: 1 tab Donepezil HCl (Donepezil Hcl 5 Mg Tablet) 5 mg PO BEDTIME [facility] Last Admin: 03/28/24 21:00 Dose: 5 mg Escitalopram Oxalate (Escitalopram Oxalate 10 Mg Tablet) 10 mg PO DAILY [facility] Last Admin: 03/29/24 08:17 Dose: 10 mg Levothyroxine Sodium (Levothyroxine Sodium 88 Mcg Tablet) 88 mcg PO DAILY@0600 [facility] Last Admin: 03/29/24 05:49 Dose: 88 mcg Loperamide HCl (Loperamide Hcl 2 Mg Capsule) 2 mg PO Q4H PRN PRN Reason: Loose Stool Lorazepam (Lorazepam 0.5 Mg Tablet) 0.5 mg PO DAILY PRN PRN Reason: Anxiety Last Admin: 03/21/24 03:32 Dose: 0.5 mg Magnesium Hydroxide (Milk Of Magnesia 30 Ml Oral.Susp) 30 ml PO DAILY PRN PRN Reason: Constipation Memantine (Memantine Hcl 5 Mg Tablet) 5 mg PO DAILY [facility] Last Admin: 03/29/24 08:18 Dose: 5 mg Metformin HCl (Metformin Hcl 500 Mg Tablet) 500 mg PO BEDTIME [facility] Last Admin: 03/28/24 21:00 Dose: 500 mg Pt Own (Cyclosporine ([Restasis] 1 Drop)) 1 drop EYE-BOTH BID [facility] Last Admin: 03/29/24 08:19 Dose: 1 drop Olanzapine (Olanzapine 2.5 Mg Tablet) 2.5 mg PO Q4H PRN PRN Reason: agitation/acute psychosis Simethicone (Simethicone 80 Mg Tab.Chew) 80 mg PO QIDWMHS PRN PRN Reason: bloating Last Admin: 03/28/24 21:00 Dose: 80 mg Sitagliptin Phosphate (Sitagliptin Phosphate 50 Mg Tablet) 50 mg PO DAILY [facility] Last Admin: 03/29/24 08:16 Dose: 50 mg Trazodone HCl (Trazodone Hcl 50 Mg Tablet) 50 mg PO BEDTIME MRX[facility] PRN PRN Reason: Insomnia Last Admin: 02/05/24 21:08 Dose: 50 mg Vitamin D (Cholecalciferol (Vitamin D3) 25 Mcg Tablet) 25 mcg PO DAILY [facility] Last Admin: 03/29/24 08:17 Dose: 25 mcg Zolpidem Tartrate (Zolpidem Tartrate 5 Mg Tablet) 5 mg PO BEDTIME [facility] Last Admin: 03/28/24 21:00 Dose: 5 mg Allergies Allergies Allergy/AdvReac Type Severity Reaction Status Date / Time codeine Allergy Unknown Verified 12/07/23 20:27 Assessment & Plan Assessment & Plan (1) Dementia with psychotic disturbance: Status: Acute Code(s): F03.92 - Unspecified dementia, unspecified severity, with psychotic disturbance Plan Mrs. Jin is a 83 year-old woman with hx of vascular dementia with delusions of having an affair and some paranoid delusions. Some insight that this may not be the case but pt very much believes and takes action based on delusion despite here reporting that it may not be happening. It is unclear report from [facility] as to suicidal ideation. no indication of imminent harm to self or others, but collateral information is pending from family. May consider antipsychotic. PLAN 1. Continue with same treatment. 2. Waiting for placement. Reason for continued inpatient stay Substantial Risk for: inability to function, rapid decompensation and med/psych decompensation Time Spent With Patient Time: Total time managing care of this patient today _20___ minutes.
[2024-03-29] MEDS: Diphenoxylate/Atrop 2.5/0.025 TABLET 1 TAB PO (15:09)
[2024-03-29 20:00] VITALS: BP 137/70; PULSE 75; RESP 16; TEMP 36.4; O2SAT 96
[2024-03-29] MEDS: metFORMIN HCl 500 MG TABLET PO (20:48)
[2024-03-29] MEDS: Simethicone 80 MG TAB.CHEW PO (20:48)
[2024-03-29] MEDS: Zolpidem Tartrate 5 MG TABLET PO (20:48)
[2024-03-29] MEDS: Donepezil HCl 5 MG TABLET PO (20:48)
[2024-03-29] MEDS: Atorvastatin Calcium 10 MG TABLET PO (20:48)
[2024-03-30] MEDS: Levothyroxine Sodium 88 MCG TABLET PO (06:20)
[2024-03-30 06:48] LABS: Glucose, Whole Blood 91 mg/dL (60-115)
[2024-03-30 07:59] LABS: Creatinine Clr Calc Pharmacy 33.1; Estimated Glomerular Filt Rate 36
--- NOTE | 2024-03-30 08:02 | HO.PSYCHPN ---
Subjective Subjective Date of Service: 03/30/24 Reason For Visit: psychosis Subjective Notes: Conditional Voluntary Healthcare Proxy: Yes Interim History: The nursing staff reported the patient had been compliant with treatment, no management issues. With policy writer reports he is doing well. Keller very happy today and reports her family have agreed to a skilled nursing and hopefully she can be discharged next week. Reports this is [facility] in [place]. Would also like to clarify with Team her diagnosis as she feels she does not have dementia and that could impact which Unit at [facility] she is placed. Medication Compliance: Yes Side effects from medications: No Attending Groups: No Review of Systems Acute medical concerns: No Review of Systems Review of Systems unremarkable Mental Status Exam Mental Status Exam Narrative: Appearance: wearing casual clothing, siting in chair, no NAD Behavior: cooperative Psychomotor: no retardation or agitation noted Speech: clear, normal rate/rhythm/volume, spontaneous TP: mostly linear TC: feeling okay Mood: fine Affect: congruent, SI: denies HI: denies VH/AH: none Delusions: not reported Insight/judgment: Limited memory/cog: alert, oriented x 3. Diagnostics Vital Signs (24Hr): Vital Signs - 24 hr 03/29/24 20:00 Temperature 97.6 F Pulse Rate 75 Respiratory Rate 16 Blood Pressure 137/70 Pulse Oximetry 96 Oxygen Delivery Method Room Air BMI result Body Mass Index 32.4 Labs 01/06/24 07:28 03/30/24 07:13 Labs: Laboratory Results - last 48 hr 03/29/24 03/30/24 03/30/24 05:48 06:18 07:13 Creatinine 1.39 Estim Creat Clear Calc 33.1 Estimated GFR 36 POC Glucose 117 H 91 Medications Medications Current Medications Acetaminophen (Acetaminophen 325 Mg Tablet) 650 mg PO Q6H PRN PRN Reason: Headache/Pain Mild Scale (1-3) Last Admin: 03/29/24 20:48 Dose: 650 mg Al Hydroxide/Mg Hydroxide (Magnesium Hydrox/Alum Hydrox 30 Ml Oral.Susp) 30 ml PO Q6H PRN PRN Reason: Heartburn/Nausea Allopurinol (Allopurinol 100 Mg Tablet) 100 mg PO DAILY [facility] Last Admin: 03/29/24 08:17 Dose: 100 mg Amlodipine Besylate (Amlodipine Besylate 2.5 Mg Tablet) 2.5 mg PO DAILY [facility]; Protocol Last Admin: 03/29/24 08:16 Dose: 2.5 mg Artificial Tears (Artificial Tears 15 Ml Drops) 2 drop EYE-BOTH Q4H PRN PRN Reason: Dry Eyes Last Admin: 03/04/24 10:40 Dose: 2 drop Atorvastatin Calcium (Atorvastatin Calcium 10 Mg Tablet) 10 mg PO BEDTIME [facility] Last Admin: 03/29/24 20:48 Dose: 10 mg Diphenoxylate HCl/Atropine (Diphenoxylate/Atrop 2.5/0.025 Tablet) 1 tab PO DAILY PRN PRN Reason: loose stools Last Admin: 03/29/24 15:09 Dose: 1 tab Donepezil HCl (Donepezil Hcl 5 Mg Tablet) 5 mg PO BEDTIME [facility] Last Admin: 03/29/24 20:48 Dose: 5 mg Escitalopram Oxalate (Escitalopram Oxalate 10 Mg Tablet) 10 mg PO DAILY [facility] Last Admin: 03/29/24 08:17 Dose: 10 mg Levothyroxine Sodium (Levothyroxine Sodium 88 Mcg Tablet) 88 mcg PO DAILY@0600 [facility] Last Admin: 03/30/24 06:20 Dose: 88 mcg Loperamide HCl (Loperamide Hcl 2 Mg Capsule) 2 mg PO Q4H PRN PRN Reason: Loose Stool Lorazepam (Lorazepam 0.5 Mg Tablet) 0.5 mg PO DAILY PRN PRN Reason: Anxiety Last Admin: 03/21/24 03:32 Dose: 0.5 mg Magnesium Hydroxide (Milk Of Magnesia 30 Ml Oral.Susp) 30 ml PO DAILY PRN PRN Reason: Constipation Memantine (Memantine Hcl 5 Mg Tablet) 5 mg PO DAILY [facility] Last Admin: 03/29/24 08:18 Dose: 5 mg Metformin HCl (Metformin Hcl 500 Mg Tablet) 500 mg PO BEDTIME [facility] Last Admin: 03/29/24 20:48 Dose: 500 mg Pt Own (Cyclosporine ([Restasis] 1 Drop)) 1 drop EYE-BOTH BID [facility] Last Admin: 03/29/24 20:48 Dose: 1 drop Olanzapine (Olanzapine 2.5 Mg Tablet) 2.5 mg PO Q4H PRN PRN Reason: agitation/acute psychosis Simethicone (Simethicone 80 Mg Tab.Chew) 80 mg PO QIDWMHS PRN PRN Reason: bloating Last Admin: 03/29/24 20:48 Dose: 80 mg Sitagliptin Phosphate (Sitagliptin Phosphate 50 Mg Tablet) 50 mg PO DAILY [facility] Last Admin: 03/29/24 08:16 Dose: 50 mg Trazodone HCl (Trazodone Hcl 50 Mg Tablet) 50 mg PO BEDTIME MRX1 PRN PRN Reason: Insomnia Last Admin: 02/05/24 21:08 Dose: 50 mg Vitamin D (Cholecalciferol (Vitamin D3) 25 Mcg Tablet) 25 mcg PO DAILY [facility] Last Admin: 03/29/24 08:17 Dose: 25 mcg Zolpidem Tartrate (Zolpidem Tartrate 5 Mg Tablet) 5 mg PO BEDTIME [facility] Last Admin: 03/29/24 20:48 Dose: 5 mg Allergies Allergies Allergy/AdvReac Type Severity Reaction Status Date / Time codeine Allergy Unknown Verified 12/07/23 20:27 Assessment & Plan Assessment & Plan (1) Dementia with psychotic disturbance: Status: Acute Code(s): F03.92 - Unspecified dementia, unspecified severity, with psychotic disturbance Plan Mrs. Jin is a 83 year-old woman with hx of vascular dementia with delusions of having an affair and some paranoid delusions. Some insight that this may not be the case but pt very much believes and takes action based on delusion despite here reporting that it may not be happening. It is unclear report from [facility] as to suicidal ideation. no indication of imminent harm to self or others, but collateral information is pending from family. May consider antipsychotic. PLAN 1. Continue with same treatment. 2. Waiting for placement- Would also like to clarify with Team her diagnosis as she feels she does not have dementia and that could impact which Unit she is placed. Reason for continued inpatient stay Substantial Risk for: inability to function Time Spent With Patient Time: Total time managing care of this patient today ____ minutes.
[2024-03-30 08:34] VITALS: BP 129/60; PULSE 56; RESP 16; TEMP 36; O2SAT 97
[2024-03-30] MEDS: Cholecalciferol (Vitamin D3) 25 MCG TABLET PO (08:35)
[2024-03-30] MEDS: Escitalopram Oxalate 10 MG TABLET PO (08:35)
[2024-03-30] MEDS: Acetaminophen 325 MG TABLET 650 MG PO ×2 (08:35→20:54)
[2024-03-30] MEDS: Memantine HCl 5 MG TABLET PO (08:35)
[2024-03-30] MEDS: SITagliptin Phosphate 50 MG TABLET PO (08:35)
[2024-03-30] MEDS: Simethicone 80 MG TAB.CHEW PO ×2 (08:35→20:55)
[2024-03-30] MEDS: amLODIPine Besylate 2.5 MG TABLET PO (08:35)
[2024-03-30] MEDS: allopurinoL 100 MG TABLET PO (08:35)
[2024-03-30] MEDS: CYCLOSPORINE 1 EACH EYE-BOTH ×2 (08:37→20:55)
[2024-03-30] MEDS: metFORMIN HCl 500 MG TABLET PO (20:54)
[2024-03-30] MEDS: Atorvastatin Calcium 10 MG TABLET PO (20:54)
[2024-03-30] MEDS: Zolpidem Tartrate 5 MG TABLET PO (20:54)
[2024-03-30] MEDS: Donepezil HCl 5 MG TABLET PO (20:54)
[2024-03-31] MEDS: Levothyroxine Sodium 88 MCG TABLET PO (06:09)
[2024-03-31 06:37] LABS: Glucose, Whole Blood 143 mg/dL (60-115)
[2024-03-31 08:00] VITALS: BP 150/64; PULSE 56; RESP 16; TEMP 36.4; O2SAT 97
[2024-03-31] MEDS: amLODIPine Besylate 2.5 MG TABLET PO (09:25)
[2024-03-31] MEDS: Escitalopram Oxalate 10 MG TABLET PO (09:25)
[2024-03-31] MEDS: SITagliptin Phosphate 50 MG TABLET PO (09:25)
[2024-03-31] MEDS: Cholecalciferol (Vitamin D3) 25 MCG TABLET PO (09:25)
[2024-03-31] MEDS: allopurinoL 100 MG TABLET PO (09:25)
[2024-03-31] MEDS: Memantine HCl 5 MG TABLET PO (09:25)
[2024-03-31] MEDS: CYCLOSPORINE 1 EACH EYE-BOTH ×2 (09:28→21:18)
[2024-03-31] MEDS: Acetaminophen 325 MG TABLET 650 MG PO ×2 (09:37→21:19)
--- NOTE | 2024-03-31 10:12 | HO.PSYCHPN ---
Subjective Subjective Date of Service: 03/31/24 Reason For Visit: psychosis Subjective Notes: Conditional Voluntary Healthcare Proxy: Yes Interim History: Has been compliant with treatment, no management issues. With mortgage or loan underwriter continues to report doing well and wanted to remind mortgage or loan underwriter she would like to clarify with her treatment team her diagnosis as she feels she does not have dementia and that could impact which Unit at [facility] she is placed. Denies depression, SI, HI. Sleep ok. No med concerns. Medication Compliance: Yes Side effects from medications: No Attending Groups: No Review of Systems Acute medical concerns: No Review of Systems Review of Systems unremarkable Mental Status Exam Mental Status Exam Narrative: Appearance: wearing casual clothing, in bed, no NAD Behavior: cooperative Psychomotor: no retardation or agitation noted Speech: clear, normal rate/rhythm/volume, spontaneous TP: mostly linear TC: feeling okay Mood: fine Affect: congruent, SI: denies HI: denies VH/AH: none Delusions: not reported Insight/judgment: Limited memory/cog: alert, oriented x 3. Diagnostics Vital Signs (24Hr): Vital Signs - 24 hr 03/31/24 08:00 Temperature 97.6 F Pulse Rate 56 Respiratory Rate 16 Blood Pressure 150/64 H Pulse Oximetry 97 Oxygen Delivery Method Room Air BMI result Body Mass Index 32.4 Labs 01/06/24 07:28 03/30/24 07:13 Labs: Laboratory Results - last 48 hr 03/30/24 03/30/24 03/31/24 06:18 07:13 06:08 Creatinine 1.39 Estim Creat Clear Calc 33.1 Estimated GFR 36 POC Glucose 91 143 H Medications Medications Current Medications Acetaminophen (Acetaminophen 325 Mg Tablet) 650 mg PO Q6H PRN PRN Reason: Headache/Pain Mild Scale (1-3) Last Admin: 03/31/24 09:37 Dose: 650 mg Al Hydroxide/Mg Hydroxide (Magnesium Hydrox/Alum Hydrox 30 Ml Oral.Susp) 30 ml PO Q6H PRN PRN Reason: Heartburn/Nausea Allopurinol (Allopurinol 100 Mg Tablet) 100 mg PO DAILY [facility] Last Admin: 03/31/24 09:25 Dose: 100 mg Amlodipine Besylate (Amlodipine Besylate 2.5 Mg Tablet) 2.5 mg PO DAILY [facility]; Protocol Last Admin: 03/31/24 09:25 Dose: 2.5 mg Artificial Tears (Artificial Tears 15 Ml Drops) 2 drop EYE-BOTH Q4H PRN PRN Reason: Dry Eyes Last Admin: 03/04/24 10:40 Dose: 2 drop Atorvastatin Calcium (Atorvastatin Calcium 10 Mg Tablet) 10 mg PO BEDTIME [facility] Last Admin: 03/30/24 20:54 Dose: 10 mg Diphenoxylate HCl/Atropine (Diphenoxylate/Atrop 2.5/0.025 Tablet) 1 tab PO DAILY PRN PRN Reason: loose stools Last Admin: 03/29/24 15:09 Dose: 1 tab Donepezil HCl (Donepezil Hcl 5 Mg Tablet) 5 mg PO BEDTIME [facility] Last Admin: 03/30/24 20:54 Dose: 5 mg Escitalopram Oxalate (Escitalopram Oxalate 10 Mg Tablet) 10 mg PO DAILY [facility] Last Admin: 03/31/24 09:25 Dose: 10 mg Levothyroxine Sodium (Levothyroxine Sodium 88 Mcg Tablet) 88 mcg PO DAILY@0600 [facility] Last Admin: 03/31/24 06:09 Dose: 88 mcg Loperamide HCl (Loperamide Hcl 2 Mg Capsule) 2 mg PO Q4H PRN PRN Reason: Loose Stool Lorazepam (Lorazepam 0.5 Mg Tablet) 0.5 mg PO DAILY PRN PRN Reason: Anxiety Last Admin: 03/21/24 03:32 Dose: 0.5 mg Magnesium Hydroxide (Milk Of Magnesia 30 Ml Oral.Susp) 30 ml PO DAILY PRN PRN Reason: Constipation Memantine (Memantine Hcl 5 Mg Tablet) 5 mg PO DAILY [facility] Last Admin: 03/31/24 09:25 Dose: 5 mg Metformin HCl (Metformin Hcl 500 Mg Tablet) 500 mg PO BEDTIME [facility] Last Admin: 03/30/24 20:54 Dose: 500 mg Pt Own (Cyclosporine ([Restasis] 1 Drop)) 1 drop EYE-BOTH BID [facility] Last Admin: 03/31/24 09:28 Dose: 1 drop Olanzapine (Olanzapine 2.5 Mg Tablet) 2.5 mg PO Q4H PRN PRN Reason: agitation/acute psychosis Simethicone (Simethicone 80 Mg Tab.Chew) 80 mg PO QIDWMHS PRN PRN Reason: bloating Last Admin: 03/30/24 20:55 Dose: 80 mg Sitagliptin Phosphate (Sitagliptin Phosphate 50 Mg Tablet) 50 mg PO DAILY [facility] Last Admin: 03/31/24 09:25 Dose: 50 mg Trazodone HCl (Trazodone Hcl 50 Mg Tablet) 50 mg PO BEDTIME MRX1 PRN PRN Reason: Insomnia Last Admin: 02/05/24 21:08 Dose: 50 mg Vitamin D (Cholecalciferol (Vitamin D3) 25 Mcg Tablet) 25 mcg PO DAILY [facility] Last Admin: 03/31/24 09:25 Dose: 25 mcg Zolpidem Tartrate (Zolpidem Tartrate 5 Mg Tablet) 5 mg PO BEDTIME [facility] Last Admin: 03/30/24 20:54 Dose: 5 mg Allergies Allergies Allergy/AdvReac Type Severity Reaction Status Date / Time codeine Allergy Unknown Verified 12/07/23 20:27 Assessment & Plan Assessment & Plan (1) Dementia with psychotic disturbance: Status: Acute Code(s): F03.92 - Unspecified dementia, unspecified severity, with psychotic disturbance Plan Mrs. Jin is a 83 year-old woman with hx of vascular dementia with delusions of having an affair and some paranoid delusions. Some insight that this may not be the case but pt very much believes and takes action based on delusion despite here reporting that it may not be happening. It is unclear report from [facility] as to suicidal ideation. no indication of imminent harm to self or others, but collateral information is pending from family. May consider antipsychotic. PLAN 1. Continue with same treatment. 2. Waiting for placement- Would also like to clarify with Team her diagnosis as she feels she does not have dementia and that could impact which Unit she is placed. Reason for continued inpatient stay Substantial Risk for: rapid decompensation Time Spent With Patient Time: Total time managing care of this patient today ____ minutes.
[2024-03-31 20:00] VITALS: BP 159/67; PULSE 65; RESP 16; TEMP 36.4; O2SAT 100
[2024-03-31] MEDS: Simethicone 80 MG TAB.CHEW PO (21:19)
[2024-03-31] MEDS: Donepezil HCl 5 MG TABLET PO (21:20)
[2024-03-31] MEDS: metFORMIN HCl 500 MG TABLET PO (21:20)
[2024-03-31] MEDS: Zolpidem Tartrate 5 MG TABLET PO (21:21)
[2024-03-31] MEDS: Atorvastatin Calcium 10 MG TABLET PO (21:21)
[2024-04-01] MEDS: Levothyroxine Sodium 88 MCG TABLET PO (06:29)
[2024-04-01 06:48] LABS: Glucose, Whole Blood 122 mg/dL (60-115)
[2024-04-01 08:00] VITALS: BP 131/60; PULSE 62; RESP 16; TEMP 36.1; O2SAT 97
[2024-04-01 09:43] VITALS: BP 131/60
[2024-04-01] MEDS: amLODIPine Besylate 2.5 MG TABLET PO (09:43)
[2024-04-01] MEDS: SITagliptin Phosphate 50 MG TABLET PO (09:43)
[2024-04-01] MEDS: Memantine HCl 5 MG TABLET PO (09:44)
[2024-04-01] MEDS: Cholecalciferol (Vitamin D3) 25 MCG TABLET PO (09:44)
[2024-04-01] MEDS: allopurinoL 100 MG TABLET PO (09:44)
[2024-04-01] MEDS: Escitalopram Oxalate 10 MG TABLET PO (09:44)
[2024-04-01] MEDS: Acetaminophen 325 MG TABLET 650 MG PO ×2 (09:44→21:03)
[2024-04-01] MEDS: CYCLOSPORINE 1 EACH EYE-BOTH ×2 (09:59→21:01)
--- NOTE | 2024-04-01 10:57 | HO.PSYCHPN ---
Subjective Subjective Date of Service: 04/01/24 Reason For Visit: psychosis Subjective Notes: Conditional Voluntary Interim History: The nursing staff reported the patient had been compliant with treatment, no changes in her mental status. On interview the patient denies new symptoms, waiting for placement. Mental Status Exam Mental Status Exam Patient Appearance: Appropriate Patient Orientation: Person and Situation Level of Consciousness: Awake and Appropriate Patient Behavior: Guarded and Passive Mood Description: Withdrawn Affect Description: Constricted Patient Cognition Impaired: Yes Ability to Follow Directions: Good Speech Pattern: Clear Hallucinations: None Delusions: Not Present Thought Process: Distracted and Slowed Thinking Thought Content: positive for [place] and positive for [place] of Content Judgement: Fair Diagnostics Vital Signs (24Hr): Vital Signs - 24 hr 03/31/24 20:00 04/01/24 08:00 04/01/24 09:43 Temperature 97.6 F 96.9 F Pulse Rate 65 62 Respiratory Rate 16 16 Blood Pressure 159/67 H 131/60 131/60 Pulse Oximetry 100 97 Oxygen Delivery Method Room Air Room Air BMI result Body Mass Index 32.4 Labs 01/06/24 07:28 03/30/24 07:13 Labs: Laboratory Results - last 48 hr 03/31/24 04/01/24 06:08 06:30 POC Glucose 143 H 122 H Medications Medications Current Medications Acetaminophen (Acetaminophen 325 Mg Tablet) 650 mg PO Q6H PRN PRN Reason: Headache/Pain Mild Scale (1-3) Last Admin: 04/01/24 09:44 Dose: 650 mg Al Hydroxide/Mg Hydroxide (Magnesium Hydrox/Alum Hydrox 30 Ml Oral.Susp) 30 ml PO Q6H PRN PRN Reason: Heartburn/Nausea Allopurinol (Allopurinol 100 Mg Tablet) 100 mg PO DAILY [facility] Last Admin: 04/01/24 09:44 Dose: 100 mg Amlodipine Besylate (Amlodipine Besylate 2.5 Mg Tablet) 2.5 mg PO DAILY [facility]; Protocol Last Admin: 04/01/24 09:43 Dose: 2.5 mg Artificial Tears (Artificial Tears 15 Ml Drops) 2 drop EYE-BOTH Q4H PRN PRN Reason: Dry Eyes Last Admin: 03/04/24 10:40 Dose: 2 drop Atorvastatin Calcium (Atorvastatin Calcium 10 Mg Tablet) 10 mg PO BEDTIME [facility] Last Admin: 03/31/24 21:21 Dose: 10 mg Diphenoxylate HCl/Atropine (Diphenoxylate/Atrop 2.5/0.025 Tablet) 1 tab PO DAILY PRN PRN Reason: loose stools Last Admin: 03/29/24 15:09 Dose: 1 tab Donepezil HCl (Donepezil Hcl 5 Mg Tablet) 5 mg PO BEDTIME [facility] Last Admin: 03/31/24 21:20 Dose: 5 mg Escitalopram Oxalate (Escitalopram Oxalate 10 Mg Tablet) 10 mg PO DAILY [facility] Last Admin: 04/01/24 09:44 Dose: 10 mg Levothyroxine Sodium (Levothyroxine Sodium 88 Mcg Tablet) 88 mcg PO DAILY@0600 [facility] Last Admin: 04/01/24 06:29 Dose: 88 mcg Loperamide HCl (Loperamide Hcl 2 Mg Capsule) 2 mg PO Q4H PRN PRN Reason: Loose Stool Lorazepam (Lorazepam 0.5 Mg Tablet) 0.5 mg PO DAILY PRN PRN Reason: Anxiety Last Admin: 03/21/24 03:32 Dose: 0.5 mg Magnesium Hydroxide (Milk Of Magnesia 30 Ml Oral.Susp) 30 ml PO DAILY PRN PRN Reason: Constipation Memantine (Memantine Hcl 5 Mg Tablet) 5 mg PO DAILY [facility] Last Admin: 04/01/24 09:44 Dose: 5 mg Metformin HCl (Metformin Hcl 500 Mg Tablet) 500 mg PO BEDTIME [facility] Last Admin: 03/31/24 21:20 Dose: 500 mg Pt Own (Cyclosporine ([Restasis] 1 Drop)) 1 drop EYE-BOTH BID [facility] Last Admin: 04/01/24 09:59 Dose: 1 drop Olanzapine (Olanzapine 2.5 Mg Tablet) 2.5 mg PO Q4H PRN PRN Reason: agitation/acute psychosis Simethicone (Simethicone 80 Mg Tab.Chew) 80 mg PO QIDWMHS PRN PRN Reason: bloating Last Admin: 03/31/24 21:19 Dose: 80 mg Sitagliptin Phosphate (Sitagliptin Phosphate 50 Mg Tablet) 50 mg PO DAILY [facility] Last Admin: 04/01/24 09:43 Dose: 50 mg Trazodone HCl (Trazodone Hcl 50 Mg Tablet) 50 mg PO BEDTIME MRX1 PRN PRN Reason: Insomnia Last Admin: 02/05/24 21:08 Dose: 50 mg Vitamin D (Cholecalciferol (Vitamin D3) 25 Mcg Tablet) 25 mcg PO DAILY [facility] Last Admin: 04/01/24 09:44 Dose: 25 mcg Zolpidem Tartrate (Zolpidem Tartrate 5 Mg Tablet) 5 mg PO BEDTIME [facility] Last Admin: 03/31/24 21:21 Dose: 5 mg Allergies Allergies Allergy/AdvReac Type Severity Reaction Status Date / Time codeine Allergy Unknown Verified 12/07/23 20:27 Assessment & Plan Assessment & Plan (1) Dementia with psychotic disturbance: Status: Acute Code(s): F03.92 - Unspecified dementia, unspecified severity, with psychotic disturbance Plan Mrs. Jin is a 83 year-old woman with hx of vascular dementia with delusions of having an affair and some paranoid delusions. Some insight that this may not be the case but pt very much believes and takes action based on delusion despite here reporting that it may not be happening. It is unclear report from [facility] as to suicidal ideation. no indication of imminent harm to self or others, but collateral information is pending from family. May consider antipsychotic. PLAN 1. Continue with same treatment. 2. Waiting for placement- Would also like to clarify with Team her diagnosis as she feels she does not have dementia and that could impact which Unit she is placed. Reason for continued inpatient stay Substantial Risk for: inability to function, rapid decompensation and med/psych decompensation Time Spent With Patient Time: Total time managing care of this patient today __20__ minutes.
[2024-04-01 20:00] VITALS: BP 146/60; PULSE 71; RESP 18; TEMP 36.4; O2SAT 98
[2024-04-01] MEDS: Simethicone 80 MG TAB.CHEW PO (21:01)
[2024-04-01] MEDS: Atorvastatin Calcium 10 MG TABLET PO (21:02)
[2024-04-01] MEDS: metFORMIN HCl 500 MG TABLET PO (21:02)
[2024-04-01] MEDS: Zolpidem Tartrate 5 MG TABLET PO (21:02)
[2024-04-01] MEDS: Donepezil HCl 5 MG TABLET PO (21:03)
[2024-04-01] MEDS: Artificial Tears 15 ML DROPS 2 DROP EYE-BOTH (22:32)
[2024-04-02] MEDS: Levothyroxine Sodium 88 MCG TABLET PO (05:54)
[2024-04-02 06:02] LABS: Glucose, Whole Blood 100 mg/dL (60-115)
[2024-04-02 07:55] VITALS: BP 137/69; PULSE 67; RESP 18; TEMP 36.6; O2SAT 96
[2024-04-02] MEDS: amLODIPine Besylate 2.5 MG TABLET PO (08:28)
[2024-04-02] MEDS: Cholecalciferol (Vitamin D3) 25 MCG TABLET PO (08:28)
[2024-04-02] MEDS: Simethicone 80 MG TAB.CHEW PO ×2 (08:28→20:16)
[2024-04-02] MEDS: Escitalopram Oxalate 10 MG TABLET PO (08:28)
[2024-04-02] MEDS: SITagliptin Phosphate 50 MG TABLET PO (08:28)
[2024-04-02] MEDS: Memantine HCl 5 MG TABLET PO (08:28)
[2024-04-02] MEDS: allopurinoL 100 MG TABLET PO (08:28)
[2024-04-02] MEDS: Acetaminophen 325 MG TABLET 650 MG PO ×2 (08:28→20:16)
[2024-04-02] MEDS: CYCLOSPORINE 1 EACH EYE-BOTH (08:29)
--- NOTE | 2024-04-02 16:01 | P.PNPSI_ITS ---
Subjective Subjective Date of Service: 04/02/24 Reason For Visit: psychosis Subjective Notes: Conditional Voluntary Interim History: The nursing staff reported the patient had been pleasant cooperative compliant with treatment. The social media project manager reported that mask and was been denied and there we applying. She is accepted at [facility]. On interview the patient denies new symptoms waiting for placement. Mental Status Exam Mental Status Exam Patient Appearance: Appropriate Patient Orientation: Person and Situation Level of Consciousness: Awake and Appropriate Patient Behavior: Guarded and Passive Mood Description: Withdrawn Affect Description: Constricted Patient Cognition Impaired: Yes Ability to Follow Directions: Good Speech Pattern: Clear Hallucinations: None Delusions: Not Present Thought Process: Distracted and Slowed Thinking Thought Content: positive for [place] and positive for Poverty of Content Judgement: Fair Diagnostics Vital Signs (24Hr): Vital Signs - 24 hr 04/01/24 20:00 04/02/24 07:55 Temperature 97.6 F 97.8 F Pulse Rate 71 67 Respiratory Rate 18 18 Blood Pressure 146/60 H 137/69 Pulse Oximetry 98 96 Oxygen Delivery Method Room Air Room Air BMI result Body Mass Index 32.4 Labs 01/06/24 07:28 03/30/24 07:13 Labs: Laboratory Results - last 48 hr 04/01/24 04/02/24 06:30 05:58 POC Glucose 122 H 100 Medications Medications Current Medications Acetaminophen (Acetaminophen 325 Mg Tablet) 650 mg PO Q6H PRN PRN Reason: Headache/Pain Mild Scale (1-3) Last Admin: 04/02/24 08:28 Dose: 650 mg Al Hydroxide/Mg Hydroxide (Magnesium Hydrox/Alum Hydrox 30 Ml Oral.Susp) 30 ml PO Q6H PRN PRN Reason: Heartburn/Nausea Allopurinol (Allopurinol 100 Mg Tablet) 100 mg PO DAILY [facility] Last Admin: 04/02/24 08:28 Dose: 100 mg Amlodipine Besylate (Amlodipine Besylate 2.5 Mg Tablet) 2.5 mg PO DAILY [facility]; Protocol Last Admin: 04/02/24 08:28 Dose: 2.5 mg Artificial Tears (Artificial Tears 15 Ml Drops) 2 drop EYE-BOTH Q4H PRN PRN Reason: Dry Eyes Last Admin: 04/01/24 22:32 Dose: 2 drop Atorvastatin Calcium (Atorvastatin Calcium 10 Mg Tablet) 10 mg PO BEDTIME [facility] Last Admin: 04/01/24 21:02 Dose: 10 mg Donepezil HCl (Donepezil Hcl 5 Mg Tablet) 5 mg PO BEDTIME [facility] Last Admin: 04/01/24 21:03 Dose: 5 mg Escitalopram Oxalate (Escitalopram Oxalate 10 Mg Tablet) 10 mg PO DAILY [facility] Last Admin: 04/02/24 08:28 Dose: 10 mg Levothyroxine Sodium (Levothyroxine Sodium 88 Mcg Tablet) 88 mcg PO DAILY@0600 [facility] Last Admin: 04/02/24 05:54 Dose: 88 mcg Loperamide HCl (Loperamide Hcl 2 Mg Capsule) 2 mg PO Q4H PRN PRN Reason: Loose Stool Loratadine (Loratadine 10 Mg Tablet) 10 mg PO DAILY PRN PRN Reason: seasonal allergies Magnesium Hydroxide (Milk Of Magnesia 30 Ml Oral.Susp) 30 ml PO DAILY PRN PRN Reason: Constipation Memantine (Memantine Hcl 5 Mg Tablet) 5 mg PO DAILY [facility] Last Admin: 04/02/24 08:28 Dose: 5 mg Metformin HCl (Metformin Hcl 500 Mg Tablet) 500 mg PO BEDTIME [facility] Last Admin: 04/01/24 21:02 Dose: 500 mg Pt Own (Cyclosporine ([Restasis] 1 Drop)) 1 drop EYE-BOTH BID [facility] Last Admin: 04/02/24 08:29 Dose: 1 drop Olanzapine (Olanzapine 2.5 Mg Tablet) 2.5 mg PO Q4H PRN PRN Reason: agitation/acute psychosis Simethicone (Simethicone 80 Mg Tab.Chew) 80 mg PO QIDWMHS PRN PRN Reason: bloating Last Admin: 04/02/24 08:28 Dose: 80 mg Sitagliptin Phosphate (Sitagliptin Phosphate 50 Mg Tablet) 50 mg PO DAILY [facility] Last Admin: 04/02/24 08:28 Dose: 50 mg Trazodone HCl (Trazodone Hcl 50 Mg Tablet) 50 mg PO BEDTIME MRX1 PRN PRN Reason: Insomnia Last Admin: 02/05/24 21:08 Dose: 50 mg Vitamin D (Cholecalciferol (Vitamin D3) 25 Mcg Tablet) 25 mcg PO DAILY [facility] Last Admin: 04/02/24 08:28 Dose: 25 mcg Allergies Allergies Allergy/AdvReac Type Severity Reaction Status Date / Time codeine Allergy Unknown Verified 12/07/23 20:27 Assessment & Plan Assessment & Plan (1) Dementia with psychotic disturbance: Status: Acute Code(s): F03.92 - Unspecified dementia, unspecified severity, with psychotic disturbance Plan Mrs. Jin is a 83 year-old woman with hx of vascular dementia with delusions of having an affair and some paranoid delusions. Some insight that this may not be the case but pt very much believes and takes action based on delusion despite here reporting that it may not be happening. It is unclear report from [facility] as to suicidal ideation. no indication of imminent harm to self or others, but collateral information is pending from family. May consider antipsychotic. PLAN 1. Continue with same treatment. 2. Waiting for placement- Would also like to clarify with Team her diagnosis as she feels she does not have dementia and that could impact which Unit she is placed. Reason for continued inpatient stay Substantial Risk for: inability to function, rapid decompensation and med/psych decompensation Time Spent With Patient Time: Total time managing care of this patient today _20___ minutes.
[2024-04-02 20:14] VITALS: BP 151/65; PULSE 79; RESP 15; TEMP 37.1; O2SAT 95
[2024-04-02] MEDS: metFORMIN HCl 500 MG TABLET PO (20:16)
[2024-04-02] MEDS: Artificial Tears 15 ML DROPS 2 DROP EYE-BOTH (20:16)
[2024-04-02] MEDS: Donepezil HCl 5 MG TABLET PO (20:16)
[2024-04-02] MEDS: Atorvastatin Calcium 10 MG TABLET PO (20:16)
[2024-04-03] MEDS: Levothyroxine Sodium 88 MCG TABLET PO (05:24)
[2024-04-03 05:32] LABS: Glucose, Whole Blood 160 mg/dL (60-115)
[2024-04-03 07:55] VITALS: BP 120/62; PULSE 85; RESP 16; TEMP 36.4; O2SAT 95
[2024-04-03] MEDS: Acetaminophen 325 MG TABLET 650 MG PO ×2 (08:13→19:23)
[2024-04-03] MEDS: Simethicone 80 MG TAB.CHEW PO ×2 (08:13→19:24)
[2024-04-03] MEDS: allopurinoL 100 MG TABLET PO (08:13)
[2024-04-03] MEDS: SITagliptin Phosphate 50 MG TABLET PO (08:13)
[2024-04-03] MEDS: Escitalopram Oxalate 10 MG TABLET PO (08:14)
[2024-04-03] MEDS: Cholecalciferol (Vitamin D3) 25 MCG TABLET PO (08:14)
[2024-04-03] MEDS: amLODIPine Besylate 2.5 MG TABLET PO (08:14)
[2024-04-03] MEDS: Memantine HCl 5 MG TABLET PO (08:14)
--- NOTE | 2024-04-03 15:28 | HO.PSYCHPN ---
Subjective Subjective Date of Service: 04/03/24 Reason For Visit: psychosis Subjective Notes: Conditional Voluntary Interim History: The nursing staff reported no changes in her mental status. The long term care social worker reported that some reason really accepted but [facility] was not approved. On interview the patient denies new symptoms waiting for placement. Mental Status Exam Mental Status Exam Patient Appearance: Well Grooomed Patient Orientation: Person and Situation Level of Consciousness: Awake and Appropriate Patient Behavior: Guarded and Passive Mood Description: Withdrawn Affect Description: Constricted Patient Cognition Impaired: Yes Ability to Follow Directions: Good Speech Pattern: Clear Hallucinations: None Delusions: Ideas of Reference Thought Process: Distracted and Slowed Thinking Thought Content: positive for [place] and positive for Poverty of Content Judgement: Fair Diagnostics Vital Signs (24Hr): Vital Signs - 24 hr 04/02/24 20:14 04/03/24 07:55 Temperature 98.8 F 97.6 F Pulse Rate 79 85 Respiratory Rate 15 16 Blood Pressure 151/65 H 120/62 Pulse Oximetry 95 95 Oxygen Delivery Method Room Air Room Air BMI result Body Mass Index 32.4 Labs 01/06/24 07:28 03/30/24 07:13 Labs: Laboratory Results - last 48 hr 04/02/24 04/03/24 05:58 05:27 POC Glucose 100 160 H Medications Medications Current Medications Acetaminophen (Acetaminophen 325 Mg Tablet) 650 mg PO Q6H PRN PRN Reason: Headache/Pain Mild Scale (1-3) Last Admin: 04/03/24 08:13 Dose: 650 mg Al Hydroxide/Mg Hydroxide (Magnesium Hydrox/Alum Hydrox 30 Ml Oral.Susp) 30 ml PO Q6H PRN PRN Reason: Heartburn/Nausea Allopurinol (Allopurinol 100 Mg Tablet) 100 mg PO DAILY [facility] Last Admin: 04/03/24 08:13 Dose: 100 mg Amlodipine Besylate (Amlodipine Besylate 2.5 Mg Tablet) 2.5 mg PO DAILY [facility]; Protocol Last Admin: 04/03/24 08:14 Dose: 2.5 mg Artificial Tears (Artificial Tears 15 Ml Drops) 2 drop EYE-BOTH Q4H PRN PRN Reason: Dry Eyes Last Admin: 04/02/24 20:16 Dose: 2 drop Atorvastatin Calcium (Atorvastatin Calcium 10 Mg Tablet) 10 mg PO BEDTIME [facility] Last Admin: 04/02/24 20:16 Dose: 10 mg Donepezil HCl (Donepezil Hcl 5 Mg Tablet) 5 mg PO BEDTIME [facility] Last Admin: 04/02/24 20:16 Dose: 5 mg Escitalopram Oxalate (Escitalopram Oxalate 10 Mg Tablet) 10 mg PO DAILY [facility] Last Admin: 04/03/24 08:14 Dose: 10 mg Levothyroxine Sodium (Levothyroxine Sodium 88 Mcg Tablet) 88 mcg PO DAILY@0600 [facility] Last Admin: 04/03/24 05:24 Dose: 88 mcg Loperamide HCl (Loperamide Hcl 2 Mg Capsule) 2 mg PO Q4H PRN PRN Reason: Loose Stool Loratadine (Loratadine 10 Mg Tablet) 10 mg PO DAILY PRN PRN Reason: seasonal allergies Magnesium Hydroxide (Milk Of Magnesia 30 Ml Oral.Susp) 30 ml PO DAILY PRN PRN Reason: Constipation Memantine (Memantine Hcl 5 Mg Tablet) 5 mg PO DAILY [facility] Last Admin: 04/03/24 08:14 Dose: 5 mg Metformin HCl (Metformin Hcl 500 Mg Tablet) 500 mg PO BEDTIME [facility] Last Admin: 04/02/24 20:16 Dose: 500 mg Olanzapine (Olanzapine 2.5 Mg Tablet) 2.5 mg PO Q4H PRN PRN Reason: agitation/acute psychosis Simethicone (Simethicone 80 Mg Tab.Chew) 80 mg PO QIDWMHS PRN PRN Reason: bloating Last Admin: 04/03/24 08:13 Dose: 80 mg Sitagliptin Phosphate (Sitagliptin Phosphate 50 Mg Tablet) 50 mg PO DAILY [facility] Last Admin: 04/03/24 08:13 Dose: 50 mg Trazodone HCl (Trazodone Hcl 50 Mg Tablet) 50 mg PO BEDTIME MRX1 PRN PRN Reason: Insomnia Last Admin: 02/05/24 21:08 Dose: 50 mg Vitamin D (Cholecalciferol (Vitamin D3) 25 Mcg Tablet) 25 mcg PO DAILY [facility] Last Admin: 04/03/24 08:14 Dose: 25 mcg Allergies Allergies Allergy/AdvReac Type Severity Reaction Status Date / Time codeine Allergy Unknown Verified 12/07/23 20:27 Assessment & Plan Assessment & Plan (1) Dementia with psychotic disturbance: Status: Acute Code(s): F03.92 - Unspecified dementia, unspecified severity, with psychotic disturbance Plan Pt calm some delusional concern generally cooperative pleasant cont plan of care . Reason for continued inpatient stay Substantial Risk for: inability to function, rapid decompensation and med/psych decompensation Time Spent With Patient Time: Total time managing care of this patient today __20__ minutes.
[2024-04-03] MEDS: metFORMIN HCl 500 MG TABLET PO (19:23)
[2024-04-03] MEDS: Atorvastatin Calcium 10 MG TABLET PO (19:24)
[2024-04-03] MEDS: Donepezil HCl 5 MG TABLET PO (19:24)
[2024-04-03] MEDS: CYCLOSPORINE 1 EACH EYE-BOTH (19:27)
[2024-04-03 20:04] VITALS: BP 151/58; PULSE 86; RESP 18; TEMP 36.4; O2SAT 98
[2024-04-04] MEDS: Levothyroxine Sodium 88 MCG TABLET PO (05:31)
[2024-04-04 06:24] LABS: Glucose, Whole Blood 164 mg/dL (60-115)
[2024-04-04 07:55] VITALS: BP 160/73; PULSE 77; RESP 18; TEMP 36.6; O2SAT 98
[2024-04-04] MEDS: Acetaminophen 325 MG TABLET 650 MG PO ×2 (08:15→20:59)
[2024-04-04] MEDS: Memantine HCl 5 MG TABLET PO (08:15)
[2024-04-04] MEDS: SITagliptin Phosphate 50 MG TABLET PO (08:15)
[2024-04-04] MEDS: Simethicone 80 MG TAB.CHEW PO (08:15)
[2024-04-04] MEDS: CYCLOSPORINE 1 EACH EYE-BOTH ×2 (08:16→20:48)
[2024-04-04] MEDS: Cholecalciferol (Vitamin D3) 25 MCG TABLET PO (08:16)
[2024-04-04] MEDS: amLODIPine Besylate 2.5 MG TABLET PO (08:16)
[2024-04-04] MEDS: allopurinoL 100 MG TABLET PO (08:16)
[2024-04-04] MEDS: Escitalopram Oxalate 10 MG TABLET PO (08:16)
--- NOTE | 2024-04-04 15:34 | P.PNPSI_ITS ---
Subjective Subjective Date of Service: 04/04/24 Reason For Visit: psychosis Subjective Notes: Conditional Voluntary Interim History: The nursing staff reported that she has been compliant with medications, no new symptoms. On interview, she denies new symptoms, waiting for placement. Mental Status Exam Mental Status Exam Patient Appearance: Well Grooomed and Appropriate Patient Orientation: Person and Situation Level of Consciousness: Awake and Appropriate Patient Behavior: Guarded and Passive Mood Description: Calm Affect Description: Constricted Patient Cognition Impaired: Yes Ability to Follow Directions: Good Speech Pattern: Clear Hallucinations: None Delusions: Not Present Thought Process: Distracted and Slowed Thinking Thought Content: positive for [place] and positive for Circumstantial Judgement: Fair Diagnostics Vital Signs (24Hr): Vital Signs - 24 hr 04/03/24 20:04 04/04/24 07:55 Temperature 97.6 F 97.9 F Pulse Rate 86 77 Respiratory Rate 18 18 Blood Pressure 151/58 H 160/73 H Pulse Oximetry 98 98 Oxygen Delivery Method Room Air Room Air BMI result Body Mass Index 32.4 Labs 01/06/24 07:28 03/30/24 07:13 Labs: Laboratory Results - last 48 hr 04/03/24 04/04/24 05:27 05:30 POC Glucose 160 H 164 H Medications Medications Current Medications Acetaminophen (Acetaminophen 325 Mg Tablet) 650 mg PO Q6H PRN PRN Reason: Headache/Pain Mild Scale (1-3) Last Admin: 04/04/24 08:15 Dose: 650 mg Al Hydroxide/Mg Hydroxide (Magnesium Hydrox/Alum Hydrox 30 Ml Oral.Susp) 30 ml PO Q6H PRN PRN Reason: Heartburn/Nausea Allopurinol (Allopurinol 100 Mg Tablet) 100 mg PO DAILY [facility] Last Admin: 04/04/24 08:16 Dose: 100 mg Amlodipine Besylate (Amlodipine Besylate 2.5 Mg Tablet) 2.5 mg PO DAILY [facility]; Protocol Last Admin: 04/04/24 08:16 Dose: 2.5 mg Artificial Tears (Artificial Tears 15 Ml Drops) 2 drop EYE-BOTH Q4H PRN PRN Reason: Dry Eyes Last Admin: 04/02/24 20:16 Dose: 2 drop Atorvastatin Calcium (Atorvastatin Calcium 10 Mg Tablet) 10 mg PO BEDTIME [facility] Last Admin: 04/03/24 19:24 Dose: 10 mg Cyclobenzaprine HCl (Cyclobenzaprine Hcl 5 Mg Tablet) 5 mg PO TID PRN PRN Reason: Back spasms Donepezil HCl (Donepezil Hcl 5 Mg Tablet) 5 mg PO BEDTIME [facility] Last Admin: 04/03/24 19:24 Dose: 5 mg Escitalopram Oxalate (Escitalopram Oxalate 10 Mg Tablet) 10 mg PO DAILY [facility] Last Admin: 04/04/24 08:16 Dose: 10 mg Levothyroxine Sodium (Levothyroxine Sodium 88 Mcg Tablet) 88 mcg PO DAILY@0600 [facility] Last Admin: 04/04/24 05:31 Dose: 88 mcg Loperamide HCl (Loperamide Hcl 2 Mg Capsule) 2 mg PO Q4H PRN PRN Reason: Loose Stool Loratadine (Loratadine 10 Mg Tablet) 10 mg PO DAILY PRN PRN Reason: seasonal allergies Magnesium Hydroxide (Milk Of Magnesia 30 Ml Oral.Susp) 30 ml PO DAILY PRN PRN Reason: Constipation Memantine (Memantine Hcl 5 Mg Tablet) 5 mg PO DAILY [facility] Last Admin: 04/04/24 08:15 Dose: 5 mg Metformin HCl (Metformin Hcl 500 Mg Tablet) 500 mg PO BEDTIME [facility] Last Admin: 04/03/24 19:23 Dose: 500 mg Pt Own (Cyclosporine ([Restasis] 1 Drop)) 1 drop EYE-BOTH BID [facility] Last Admin: 04/04/24 08:16 Dose: 1 drop Olanzapine (Olanzapine 2.5 Mg Tablet) 2.5 mg PO Q4H PRN PRN Reason: agitation/acute psychosis Simethicone (Simethicone 80 Mg Tab.Chew) 80 mg PO QIDWMHS PRN PRN Reason: bloating Last Admin: 04/04/24 08:15 Dose: 80 mg Sitagliptin Phosphate (Sitagliptin Phosphate 50 Mg Tablet) 50 mg PO DAILY [facility] Last Admin: 04/04/24 08:15 Dose: 50 mg Trazodone HCl (Trazodone Hcl 50 Mg Tablet) 50 mg PO BEDTIME MRX1 PRN PRN Reason: Insomnia Last Admin: 02/05/24 21:08 Dose: 50 mg Vitamin D (Cholecalciferol (Vitamin D3) 25 Mcg Tablet) 25 mcg PO DAILY [facility] Last Admin: 04/04/24 08:16 Dose: 25 mcg Zolpidem Tartrate (Zolpidem Tartrate 5 Mg Tablet) 5 mg PO BEDTIME [facility] Allergies Allergies Allergy/AdvReac Type Severity Reaction Status Date / Time codeine Allergy Unknown Verified 12/07/23 20:27 Assessment & Plan Assessment & Plan (1) Dementia with psychotic disturbance: Status: Acute Code(s): F03.92 - Unspecified dementia, unspecified severity, with psychotic disturbance Plan Pt calm some delusional concern generally cooperative pleasant cont plan of care . Reason for continued inpatient stay Substantial Risk for: inability to function, rapid decompensation and med/psych decompensation Time Spent With Patient Time: Total time managing care of this patient today __20__ minutes.
[2024-04-04 20:00] VITALS: BP 154/67; PULSE 67; RESP 16; TEMP 36.4; O2SAT 98
[2024-04-04] MEDS: Donepezil HCl 5 MG TABLET PO (20:48)
[2024-04-04] MEDS: Zolpidem Tartrate 5 MG TABLET PO (20:48)
[2024-04-04] MEDS: metFORMIN HCl 500 MG TABLET PO (20:48)
[2024-04-04] MEDS: Atorvastatin Calcium 10 MG TABLET PO (20:48)
[2024-04-05] MEDS: Simethicone 80 MG TAB.CHEW PO ×3 (00:17→19:40)
[2024-04-05] MEDS: Levothyroxine Sodium 88 MCG TABLET PO (06:45)
[2024-04-05 06:55] LABS: Glucose, Whole Blood 134 mg/dL (60-115)
[2024-04-05 09:00] VITALS: BP 165/71; PULSE 66; RESP 12; TEMP 36.2; O2SAT 96
[2024-04-05] MEDS: Acetaminophen 325 MG TABLET 650 MG PO ×2 (09:02→19:40)
[2024-04-05] MEDS: CYCLOSPORINE 1 EACH EYE-BOTH ×2 (09:02→19:41)
[2024-04-05] MEDS: Memantine HCl 5 MG TABLET PO (09:02)
[2024-04-05] MEDS: allopurinoL 100 MG TABLET PO (09:03)
[2024-04-05] MEDS: Cholecalciferol (Vitamin D3) 25 MCG TABLET PO (09:03)
[2024-04-05] MEDS: Escitalopram Oxalate 10 MG TABLET PO (09:04)
[2024-04-05] MEDS: amLODIPine Besylate 2.5 MG TABLET PO (09:04)
[2024-04-05] MEDS: SITagliptin Phosphate 50 MG TABLET PO (09:05)
--- NOTE | 2024-04-05 16:15 | P.PNPSI_ITS ---
Subjective Subjective Date of Service: 04/05/24 Reason For Visit: psychosis Subjective Notes: Conditional Voluntary Interim History: The nursing staff reported the patient had been compliant with treatment, no changes in her mental status. The marriage and family social worker reported that she was already accepted that [facility] but she had not been financially cleared yet. On interview the patient denies new symptoms, waiting for placement. Mental Status Exam Mental Status Exam Patient Appearance: Appropriate Patient Orientation: Person and Situation Level of Consciousness: Awake and Appropriate Patient Behavior: Guarded and Passive Mood Description: Withdrawn Affect Description: Constricted Patient Cognition Impaired: Yes Ability to Follow Directions: Good Speech Pattern: Clear Hallucinations: None Delusions: Not Present Thought Process: Distracted and Slowed Thinking Thought Content: positive for [place] and positive for Poverty of Content Judgement: Fair Diagnostics Vital Signs (24Hr): Vital Signs - 24 hr 04/04/24 20:00 04/05/24 09:00 Temperature 97.6 F 97.2 F Pulse Rate 67 66 Respiratory Rate 16 12 Blood Pressure 154/67 H 165/71 H Pulse Oximetry 98 96 Oxygen Delivery Method Room Air Room Air BMI result Body Mass Index 32.4 Labs 01/06/24 07:28 03/30/24 07:13 Labs: Laboratory Results - last 48 hr 04/04/24 04/05/24 05:30 06:44 POC Glucose 164 H 134 H Medications Medications Current Medications Acetaminophen (Acetaminophen 325 Mg Tablet) 650 mg PO Q6H PRN PRN Reason: Headache/Pain Mild Scale (1-3) Last Admin: 04/05/24 09:02 Dose: 650 mg Al Hydroxide/Mg Hydroxide (Magnesium Hydrox/Alum Hydrox 30 Ml Oral.Susp) 30 ml PO Q6H PRN PRN Reason: Heartburn/Nausea Allopurinol (Allopurinol 100 Mg Tablet) 100 mg PO DAILY [facility] Last Admin: 04/05/24 09:03 Dose: 100 mg Amlodipine Besylate (Amlodipine Besylate 2.5 Mg Tablet) 2.5 mg PO DAILY [facility]; Protocol Last Admin: 04/05/24 09:04 Dose: 2.5 mg Artificial Tears (Artificial Tears 15 Ml Drops) 2 drop EYE-BOTH Q4H PRN PRN Reason: Dry Eyes Last Admin: 04/02/24 20:16 Dose: 2 drop Atorvastatin Calcium (Atorvastatin Calcium 10 Mg Tablet) 10 mg PO BEDTIME [facility] Last Admin: 04/04/24 20:48 Dose: 10 mg Cyclobenzaprine HCl (Cyclobenzaprine Hcl 5 Mg Tablet) 5 mg PO TID PRN PRN Reason: Back spasms Donepezil HCl (Donepezil Hcl 5 Mg Tablet) 5 mg PO BEDTIME [facility] Last Admin: 04/04/24 20:48 Dose: 5 mg Escitalopram Oxalate (Escitalopram Oxalate 10 Mg Tablet) 10 mg PO DAILY [facility] Last Admin: 04/05/24 09:04 Dose: 10 mg Levothyroxine Sodium (Levothyroxine Sodium 88 Mcg Tablet) 88 mcg PO DAILY@0600 [facility] Last Admin: 04/05/24 06:45 Dose: 88 mcg Loperamide HCl (Loperamide Hcl 2 Mg Capsule) 2 mg PO Q4H PRN PRN Reason: Loose Stool Loratadine (Loratadine 10 Mg Tablet) 10 mg PO DAILY PRN PRN Reason: seasonal allergies Magnesium Hydroxide (Milk Of Magnesia 30 Ml Oral.Susp) 30 ml PO DAILY PRN PRN Reason: Constipation Memantine (Memantine Hcl 5 Mg Tablet) 5 mg PO DAILY [facility] Last Admin: 04/05/24 09:02 Dose: 5 mg Metformin HCl (Metformin Hcl 500 Mg Tablet) 500 mg PO BEDTIME [facility] Last Admin: 04/04/24 20:48 Dose: 500 mg Pt Own (Cyclosporine ([Restasis] 1 Drop)) 1 drop EYE-BOTH BID [facility] Last Admin: 04/05/24 09:02 Dose: 1 drop Olanzapine (Olanzapine 2.5 Mg Tablet) 2.5 mg PO Q4H PRN PRN Reason: agitation/acute psychosis Simethicone (Simethicone 80 Mg Tab.Chew) 80 mg PO QIDWMHS PRN PRN Reason: bloating Last Admin: 04/05/24 09:04 Dose: 80 mg Sitagliptin Phosphate (Sitagliptin Phosphate 50 Mg Tablet) 50 mg PO DAILY [facility] Last Admin: 04/05/24 09:05 Dose: 50 mg Trazodone HCl (Trazodone Hcl 50 Mg Tablet) 50 mg PO BEDTIME MRX1 PRN PRN Reason: Insomnia Last Admin: 02/05/24 21:08 Dose: 50 mg Vitamin D (Cholecalciferol (Vitamin D3) 25 Mcg Tablet) 25 mcg PO DAILY [facility] Last Admin: 04/05/24 09:03 Dose: 25 mcg Zolpidem Tartrate (Zolpidem Tartrate 5 Mg Tablet) 5 mg PO BEDTIME [facility] Last Admin: 04/04/24 20:48 Dose: 5 mg Allergies Allergies Allergy/AdvReac Type Severity Reaction Status Date / Time codeine Allergy Unknown Verified 12/07/23 20:27 Assessment & Plan Assessment & Plan (1) Dementia with psychotic disturbance: Status: Acute Code(s): F03.92 - Unspecified dementia, unspecified severity, with psychotic disturbance Plan Pt calm some delusional concern generally cooperative pleasant cont plan of care . Reason for continued inpatient stay Substantial Risk for: inability to function, rapid decompensation and med/psych decompensation Time Spent With Patient Time: Total time managing care of this patient today __20__ minutes.
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
[2024-04-05] MEDS: metFORMIN HCl 500 MG TABLET PO (19:40)
[2024-04-05] MEDS: Atorvastatin Calcium 10 MG TABLET PO (19:40)
[2024-04-05] MEDS: Donepezil HCl 5 MG TABLET PO (19:40)
[2024-04-05] MEDS: Zolpidem Tartrate 5 MG TABLET PO (19:40)
[2024-04-05 19:59] VITALS: BP 151/69; PULSE 68; RESP 16; TEMP 36.6; O2SAT 98
[2024-04-06] MEDS: Levothyroxine Sodium 88 MCG TABLET PO (05:23)
[2024-04-06 05:36] LABS: Glucose, Whole Blood 164 mg/dL (60-115)
--- NOTE | 2024-04-06 06:56 | P.PNPSI_ITS ---
Subjective Subjective Date of Service: 04/06/24 Reason For Visit: psychosis Subjective Notes: Conditional Voluntary Interim History: The nursing staff reported the patient had been compliant with treatment, no changes in mental status. On interview the patient denies new symptoms, waiting for placement. Mental Status Exam Mental Status Exam Patient Appearance: Appropriate Patient Orientation: Person and Situation Level of Consciousness: Awake Patient Behavior: Cooperative Mood Description: Calm Affect Description: Constricted Patient Cognition Impaired: Yes Ability to Follow Directions: Good Speech Pattern: Clear Hallucinations: None Delusions: Not Present Thought Process: Distracted and Slowed Thinking Thought Content: positive for Max and positive for Poverty of Content Judgement: Fair Diagnostics Vital Signs (24Hr): Vital Signs - 24 hr 04/05/24 09:00 04/05/24 19:59 Temperature 97.2 F 97.8 F Pulse Rate 66 68 Respiratory Rate 12 16 Blood Pressure 165/71 H 151/69 H Pulse Oximetry 96 98 Oxygen Delivery Method Room Air Room Air BMI result Body Mass Index 32.4 Labs 01/06/24 07:28 04/06/24 08:00 Labs: Laboratory Results - last 48 hr 04/05/24 04/06/24 06:44 05:30 POC Glucose 134 H 164 H Medications Medications Current Medications Acetaminophen (Acetaminophen 325 Mg Tablet) 650 mg PO Q6H PRN PRN Reason: Headache/Pain Mild Scale (1-3) Last Admin: 04/05/24 19:40 Dose: 650 mg Al Hydroxide/Mg Hydroxide (Magnesium Hydrox/Alum Hydrox 30 Ml Oral.Susp) 30 ml PO Q6H PRN PRN Reason: Heartburn/Nausea Allopurinol (Allopurinol 100 Mg Tablet) 100 mg PO DAILY [facility] Last Admin: 04/05/24 09:03 Dose: 100 mg Amlodipine Besylate (Amlodipine Besylate 2.5 Mg Tablet) 2.5 mg PO DAILY [facility]; Protocol Last Admin: 04/05/24 09:04 Dose: 2.5 mg Artificial Tears (Artificial Tears 15 Ml Drops) 2 drop EYE-BOTH Q4H PRN PRN Reason: Dry Eyes Last Admin: 04/02/24 20:16 Dose: 2 drop Atorvastatin Calcium (Atorvastatin Calcium 10 Mg Tablet) 10 mg PO BEDTIME [facility] Last Admin: 04/05/24 19:40 Dose: 10 mg Cyclobenzaprine HCl (Cyclobenzaprine Hcl 5 Mg Tablet) 5 mg PO TID PRN PRN Reason: Back spasms Donepezil HCl (Donepezil Hcl 5 Mg Tablet) 5 mg PO BEDTIME [facility] Last Admin: 04/05/24 19:40 Dose: 5 mg Escitalopram Oxalate (Escitalopram Oxalate 10 Mg Tablet) 10 mg PO DAILY [facility] Last Admin: 04/05/24 09:04 Dose: 10 mg Levothyroxine Sodium (Levothyroxine Sodium 88 Mcg Tablet) 88 mcg PO DAILY@0600 [facility] Last Admin: 04/06/24 05:23 Dose: 88 mcg Loperamide HCl (Loperamide Hcl 2 Mg Capsule) 2 mg PO Q4H PRN PRN Reason: Loose Stool Loratadine (Loratadine 10 Mg Tablet) 10 mg PO DAILY PRN PRN Reason: seasonal allergies Magnesium Hydroxide (Milk Of Magnesia 30 Ml Oral.Susp) 30 ml PO DAILY PRN PRN Reason: Constipation Memantine (Memantine Hcl 5 Mg Tablet) 5 mg PO DAILY [facility] Last Admin: 04/05/24 09:02 Dose: 5 mg Metformin HCl (Metformin Hcl 500 Mg Tablet) 500 mg PO BEDTIME [facility] Last Admin: 04/05/24 19:40 Dose: 500 mg Pt Own (Cyclosporine ([Restasis] 1 Drop)) 1 drop EYE-BOTH BID [facility] Last Admin: 04/05/24 19:41 Dose: 1 drop Olanzapine (Olanzapine 2.5 Mg Tablet) 2.5 mg PO Q4H PRN PRN Reason: agitation/acute psychosis Simethicone (Simethicone 80 Mg Tab.Chew) 80 mg PO QIDWMHS PRN PRN Reason: bloating Last Admin: 04/05/24 19:40 Dose: 80 mg Sitagliptin Phosphate (Sitagliptin Phosphate 50 Mg Tablet) 50 mg PO DAILY [facility] Last Admin: 04/05/24 09:05 Dose: 50 mg Trazodone HCl (Trazodone Hcl 50 Mg Tablet) 50 mg PO BEDTIME MRX1 PRN PRN Reason: Insomnia Last Admin: 02/05/24 21:08 Dose: 50 mg Vitamin D (Cholecalciferol (Vitamin D3) 25 Mcg Tablet) 25 mcg PO DAILY [facility] Last Admin: 04/05/24 09:03 Dose: 25 mcg Zolpidem Tartrate (Zolpidem Tartrate 5 Mg Tablet) 5 mg PO BEDTIME [facility] Last Admin: 04/05/24 19:40 Dose: 5 mg Allergies Allergies Allergy/AdvReac Type Severity Reaction Status Date / Time codeine Allergy Unknown Verified 12/07/23 20:27 Assessment & Plan Assessment & Plan (1) Dementia with psychotic disturbance: Status: Acute Code(s): F03.92 - Unspecified dementia, unspecified severity, with psychotic disturbance Plan Pt calm some delusional concern generally cooperative pleasant cont plan of care . Reason for continued inpatient stay Substantial Risk for: inability to function, rapid decompensation and med/psych decompensation Time Spent With Patient Time: Total time managing care of this patient today ___20_ minutes.
[2024-04-06 08:00] VITALS: BP 151/70; PULSE 63; RESP 18; TEMP 36.4; O2SAT 96
[2024-04-06 08:40] LABS: Estimated Glomerular Filt Rate 32
[2024-04-06] MEDS: SITagliptin Phosphate 50 MG TABLET PO (08:51)
[2024-04-06] MEDS: Memantine HCl 5 MG TABLET PO (08:51)
[2024-04-06] MEDS: allopurinoL 100 MG TABLET PO (08:52)
[2024-04-06] MEDS: Cholecalciferol (Vitamin D3) 25 MCG TABLET PO (08:52)
[2024-04-06] MEDS: CYCLOSPORINE 1 EACH EYE-BOTH ×2 (08:52→20:15)
[2024-04-06] MEDS: Escitalopram Oxalate 10 MG TABLET PO (08:52)
[2024-04-06] MEDS: Acetaminophen 325 MG TABLET 650 MG PO ×2 (08:52→20:15)
[2024-04-06 08:55] VITALS: BP 151/70
[2024-04-06] MEDS: amLODIPine Besylate 2.5 MG TABLET PO (08:55)
[2024-04-06] MEDS: Simethicone 80 MG TAB.CHEW PO ×2 (09:06→20:14)
[2024-04-06] MEDS: Loratadine 10 MG TABLET PO (14:52)
[2024-04-06 20:00] VITALS: BP 131/60; PULSE 74; RESP 16; TEMP 36; O2SAT 98
[2024-04-06] MEDS: Zolpidem Tartrate 5 MG TABLET PO (20:14)
[2024-04-06] MEDS: Atorvastatin Calcium 10 MG TABLET PO (20:14)
[2024-04-06] MEDS: metFORMIN HCl 500 MG TABLET PO (20:14)
[2024-04-06] MEDS: Donepezil HCl 5 MG TABLET PO (20:14)
[2024-04-07] MEDS: Levothyroxine Sodium 88 MCG TABLET PO (05:46)
[2024-04-07 06:14] LABS: Glucose, Whole Blood 132 mg/dL (60-115)
--- NOTE | 2024-04-07 06:57 | P.PNPSI_ITS ---
Subjective Subjective Date of Service: 04/07/24 Reason For Visit: psychosis Subjective Notes: Conditional Voluntary Interim History: The nursing staff reported the patient had been compliant with treatment, slept well. On interview the patient denies new symptoms, waiting for placement. Mental Status Exam Mental Status Exam Patient Appearance: Appropriate Patient Orientation: Person and Situation Level of Consciousness: Awake and Appropriate Patient Behavior: Guarded and Passive Mood Description: Withdrawn Affect Description: Constricted Patient Cognition Impaired: Yes Ability to Follow Directions: Good Speech Pattern: Clear Hallucinations: None Delusions: Not Present Thought Process: Distracted and Slowed Thinking Thought Content: positive for [place] and positive for Circumstantial Judgement: Fair Diagnostics Vital Signs (24Hr): Vital Signs - 24 hr 04/06/24 08:00 04/06/24 08:55 04/06/24 20:00 Temperature 97.6 F 96.8 F Pulse Rate 63 74 Respiratory Rate 18 16 Blood Pressure 151/70 H 151/70 H 131/60 Pulse Oximetry 96 98 Oxygen Delivery Method Room Air Room Air BMI result Body Mass Index 32.4 Labs 01/06/24 07:28 04/06/24 08:00 Labs: Laboratory Results - last 48 hr 04/06/24 04/06/24 04/07/24 05:30 08:00 05:48 Creatinine 1.53 H Estim Creat Clear Calc 30.0 Estimated GFR 32 POC Glucose 164 H 132 H Medications Medications Current Medications Acetaminophen (Acetaminophen 325 Mg Tablet) 650 mg PO Q6H PRN PRN Reason: Headache/Pain Mild Scale (1-3) Last Admin: 04/06/24 20:15 Dose: 650 mg Al Hydroxide/Mg Hydroxide (Magnesium Hydrox/Alum Hydrox 30 Ml Oral.Susp) 30 ml PO Q6H PRN PRN Reason: Heartburn/Nausea Allopurinol (Allopurinol 100 Mg Tablet) 100 mg PO DAILY ON [facility] Last Admin: 04/06/24 08:52 Dose: 100 mg Amlodipine Besylate (Amlodipine Besylate 2.5 Mg Tablet) 2.5 mg PO DAILY [facility]; Protocol Last Admin: 04/06/24 08:55 Dose: 2.5 mg Artificial Tears (Artificial Tears 15 Ml Drops) 2 drop EYE-BOTH Q4H PRN PRN Reason: Dry Eyes Last Admin: 04/02/24 20:16 Dose: 2 drop Atorvastatin Calcium (Atorvastatin Calcium 10 Mg Tablet) 10 mg PO BEDTIME [facility] Last Admin: 04/06/24 20:14 Dose: 10 mg Cyclobenzaprine HCl (Cyclobenzaprine Hcl 5 Mg Tablet) 5 mg PO TID PRN PRN Reason: Back spasms Donepezil HCl (Donepezil Hcl 5 Mg Tablet) 5 mg PO BEDTIME [facility] Last Admin: 04/06/24 20:14 Dose: 5 mg Escitalopram Oxalate (Escitalopram Oxalate 10 Mg Tablet) 10 mg PO DAILY [facility] Last Admin: 04/06/24 08:52 Dose: 10 mg Levothyroxine Sodium (Levothyroxine Sodium 88 Mcg Tablet) 88 mcg PO DAILY@0600 [facility] Last Admin: 04/07/24 05:46 Dose: 88 mcg Loperamide HCl (Loperamide Hcl 2 Mg Capsule) 2 mg PO Q4H PRN PRN Reason: Loose Stool Loratadine (Loratadine 10 Mg Tablet) 10 mg PO DAILY PRN PRN Reason: seasonal allergies Last Admin: 04/06/24 14:52 Dose: 10 mg Magnesium Hydroxide (Milk Of Magnesia 30 Ml Oral.Susp) 30 ml PO DAILY PRN PRN Reason: Constipation Memantine (Memantine Hcl 5 Mg Tablet) 5 mg PO DAILY [facility] Last Admin: 04/06/24 08:51 Dose: 5 mg Metformin HCl (Metformin Hcl 500 Mg Tablet) 500 mg PO BEDTIME [facility] Last Admin: 04/06/24 20:14 Dose: 500 mg Pt Own (Cyclosporine ([Restasis] 1 Drop)) 1 drop EYE-BOTH BID ON [facility] Last Admin: 04/06/24 20:15 Dose: 1 drop Olanzapine (Olanzapine 2.5 Mg Tablet) 2.5 mg PO Q4H PRN PRN Reason: agitation/acute psychosis Simethicone (Simethicone 80 Mg Tab.Chew) 80 mg PO QIDWMHS PRN PRN Reason: bloating Last Admin: 04/06/24 20:14 Dose: 80 mg Sitagliptin Phosphate (Sitagliptin Phosphate 50 Mg Tablet) 50 mg PO DAILY [facility] Last Admin: 04/06/24 08:51 Dose: 50 mg Trazodone HCl (Trazodone Hcl 50 Mg Tablet) 50 mg PO BEDTIME MRX1 PRN PRN Reason: Insomnia Last Admin: 02/05/24 21:08 Dose: 50 mg Vitamin D (Cholecalciferol (Vitamin D3) 25 Mcg Tablet) 25 mcg PO DAILY [facility] Last Admin: 04/06/24 08:52 Dose: 25 mcg Zolpidem Tartrate (Zolpidem Tartrate 5 Mg Tablet) 5 mg PO BEDTIME [facility] Last Admin: 04/06/24 20:14 Dose: 5 mg Allergies Allergies Allergy/AdvReac Type Severity Reaction Status Date / Time codeine Allergy Unknown Verified 12/07/23 20:27 Assessment & Plan Assessment & Plan (1) Dementia with psychotic disturbance: Status: Acute Code(s): F03.92 - Unspecified dementia, unspecified severity, with psychotic disturbance Plan Pt calm some delusional concern generally cooperative pleasant cont plan of care . Reason for continued inpatient stay Substantial Risk for: inability to function, rapid decompensation and med/psych decompensation Time Spent With Patient Time: Total time managing care of this patient today _20___ minutes.
[2024-04-07 08:00] VITALS: BP 149/65; PULSE 73; RESP 16; TEMP 36.3; O2SAT 96
[2024-04-07] MEDS: Memantine HCl 5 MG TABLET PO (08:32)
[2024-04-07] MEDS: CYCLOSPORINE 1 EACH EYE-BOTH ×2 (08:32→20:06)
[2024-04-07 08:33] VITALS: BP 149/65
[2024-04-07] MEDS: Cholecalciferol (Vitamin D3) 25 MCG TABLET PO (08:33)
[2024-04-07] MEDS: Acetaminophen 325 MG TABLET 650 MG PO ×2 (08:33→20:07)
[2024-04-07] MEDS: Escitalopram Oxalate 10 MG TABLET PO (08:33)
[2024-04-07] MEDS: allopurinoL 100 MG TABLET PO (08:33)
[2024-04-07] MEDS: SITagliptin Phosphate 50 MG TABLET PO (08:33)
[2024-04-07] MEDS: amLODIPine Besylate 2.5 MG TABLET PO (08:33)
[2024-04-07 09:13] LABS: Creatinine Clr Calc Pharmacy 36.7; Estimated Glomerular Filt Rate 41
[2024-04-07] MEDS: Simethicone 80 MG TAB.CHEW PO (20:06)
[2024-04-07] MEDS: Donepezil HCl 5 MG TABLET PO (20:07)
[2024-04-07] MEDS: Atorvastatin Calcium 10 MG TABLET PO (20:07)
[2024-04-07] MEDS: metFORMIN HCl 500 MG TABLET PO (20:07)
[2024-04-07] MEDS: Zolpidem Tartrate 5 MG TABLET PO (20:07)
[2024-04-07] MEDS: Loratadine 10 MG TABLET PO (20:07)
[2024-04-07 20:39] VITALS: BP 167/77; PULSE 75; RESP 16; TEMP 36.4; O2SAT 96
[2024-04-08] MEDS: Levothyroxine Sodium 88 MCG TABLET PO (05:33)
[2024-04-08 05:51] LABS: Glucose, Whole Blood 122 mg/dL (60-115)
[2024-04-08 08:30] VITALS: BP 166/71; PULSE 72; RESP 16; TEMP 36.6; O2SAT 96
[2024-04-08] MEDS: Acetaminophen 325 MG TABLET 650 MG PO ×2 (08:34→20:05)
[2024-04-08] MEDS: CYCLOSPORINE 1 EACH EYE-BOTH ×2 (08:34→20:04)
[2024-04-08] MEDS: Cholecalciferol (Vitamin D3) 25 MCG TABLET PO (08:34)
[2024-04-08] MEDS: Memantine HCl 5 MG TABLET PO (08:34)
[2024-04-08] MEDS: Simethicone 80 MG TAB.CHEW PO ×2 (08:35→20:08)
[2024-04-08] MEDS: allopurinoL 100 MG TABLET PO (08:35)
[2024-04-08 08:36] VITALS: BP 166/71
[2024-04-08] MEDS: Escitalopram Oxalate 10 MG TABLET PO (08:36)
[2024-04-08] MEDS: amLODIPine Besylate 2.5 MG TABLET PO (08:36)
[2024-04-08] MEDS: SITagliptin Phosphate 50 MG TABLET PO (08:37)
--- NOTE | 2024-04-08 14:14 | P.PNPSI_ITS ---
Subjective Subjective Date of Service: 04/08/24 Reason For Visit: psychosis Subjective Notes: Conditional Voluntary Interim History: The nursing staff reported no changes in her mental status compliant with treatment. On interview the patient reports no new symptoms besides symptoms in her ears, we will repeat the eardrops. Mental Status Exam Mental Status Exam Patient Appearance: Appropriate Patient Orientation: Person and Situation Level of Consciousness: Awake and Appropriate Patient Behavior: Guarded and Passive Mood Description: Withdrawn Affect Description: Constricted Patient Cognition Impaired: Yes Ability to Follow Directions: Good Speech Pattern: Clear Hallucinations: None Delusions: Not Present Thought Process: Distracted and Slowed Thinking Thought Content: positive for Zoe and positive for Poverty of Content Judgement: Fair Diagnostics Vital Signs (24Hr): Vital Signs - 24 hr 04/07/24 20:39 04/08/24 08:30 04/08/24 08:36 Temperature 97.5 F 97.8 F Pulse Rate 75 72 Respiratory Rate 16 16 Blood Pressure 167/77 H 166/71 H 166/71 H Pulse Oximetry 96 96 Oxygen Delivery Method Room Air Room Air BMI result Body Mass Index 32.4 Labs 01/06/24 07:28 04/07/24 08:52 Labs: Laboratory Results - last 48 hr 04/07/24 04/07/24 04/08/24 05:48 08:52 05:31 Creatinine 1.25 Estim Creat Clear Calc 36.7 Estimated GFR 41 POC Glucose 132 H 122 H Medications Medications Current Medications Acetaminophen (Acetaminophen 325 Mg Tablet) 650 mg PO Q6H PRN PRN Reason: Headache/Pain Mild Scale (1-3) Last Admin: 04/08/24 08:34 Dose: 650 mg Al Hydroxide/Mg Hydroxide (Magnesium Hydrox/Alum Hydrox 30 Ml Oral.Susp) 30 ml PO Q6H PRN PRN Reason: Heartburn/Nausea Allopurinol (Allopurinol 100 Mg Tablet) 100 mg PO DAILY [facility] Last Admin: 04/08/24 08:35 Dose: 100 mg Amlodipine Besylate (Amlodipine Besylate 2.5 Mg Tablet) 2.5 mg PO DAILY [facility]; Protocol Last Admin: 04/08/24 08:36 Dose: 2.5 mg Artificial Tears (Artificial Tears 15 Ml Drops) 2 drop EYE-BOTH Q4H PRN PRN Reason: Dry Eyes Last Admin: 04/02/24 20:16 Dose: 2 drop Atorvastatin Calcium (Atorvastatin Calcium 10 Mg Tablet) 10 mg PO BEDTIME [facility] Last Admin: 04/07/24 20:07 Dose: 10 mg Cyclobenzaprine HCl (Cyclobenzaprine Hcl 5 Mg Tablet) 5 mg PO TID PRN PRN Reason: Back spasms Donepezil HCl (Donepezil Hcl 5 Mg Tablet) 5 mg PO BEDTIME [facility] Last Admin: 04/07/24 20:07 Dose: 5 mg Escitalopram Oxalate (Escitalopram Oxalate 10 Mg Tablet) 10 mg PO DAILY [facility] Last Admin: 04/08/24 08:36 Dose: 10 mg Levothyroxine Sodium (Levothyroxine Sodium 88 Mcg Tablet) 88 mcg PO DAILY@0600 [facility] Last Admin: 04/08/24 05:33 Dose: 88 mcg Loperamide HCl (Loperamide Hcl 2 Mg Capsule) 2 mg PO Q4H PRN PRN Reason: Loose Stool Loratadine (Loratadine 10 Mg Tablet) 10 mg PO DAILY PRN PRN Reason: seasonal allergies Last Admin: 04/07/24 20:07 Dose: 10 mg Magnesium Hydroxide (Milk Of Magnesia 30 Ml Oral.Susp) 30 ml PO DAILY PRN PRN Reason: Constipation Memantine (Memantine Hcl 5 Mg Tablet) 5 mg PO DAILY [facility] Last Admin: 04/08/24 08:34 Dose: 5 mg Metformin HCl (Metformin Hcl 500 Mg Tablet) 500 mg PO BEDTIME [facility] Last Admin: 04/07/24 20:07 Dose: 500 mg Pt Own (Cyclosporine ([Restasis] 1 Drop)) 1 drop EYE-BOTH BID [facility] Last Admin: 04/08/24 08:34 Dose: 1 drop Olanzapine (Olanzapine 2.5 Mg Tablet) 2.5 mg PO Q4H PRN PRN Reason: agitation/acute psychosis Simethicone (Simethicone 80 Mg Tab.Chew) 80 mg PO QIDWMHS PRN PRN Reason: bloating Last Admin: 04/08/24 08:35 Dose: 80 mg Sitagliptin Phosphate (Sitagliptin Phosphate 50 Mg Tablet) 50 mg PO DAILY [facility] Last Admin: 04/08/24 08:37 Dose: 50 mg Trazodone HCl (Trazodone Hcl 50 Mg Tablet) 50 mg PO BEDTIME MRX1 PRN PRN Reason: Insomnia Last Admin: 02/05/24 21:08 Dose: 50 mg Vitamin D (Cholecalciferol (Vitamin D3) 25 Mcg Tablet) 25 mcg PO DAILY [facility] Last Admin: 04/08/24 08:34 Dose: 25 mcg Zolpidem Tartrate (Zolpidem Tartrate 5 Mg Tablet) 5 mg PO BEDTIME [facility] Last Admin: 04/07/24 20:07 Dose: 5 mg Allergies Allergies Allergy/AdvReac Type Severity Reaction Status Date / Time codeine Allergy Unknown Verified 12/07/23 20:27 Assessment & Plan Assessment & Plan (1) Dementia with psychotic disturbance: Status: Acute Code(s): F03.92 - Unspecified dementia, unspecified severity, with psychotic disturbance Plan Pt calm some delusional concern generally cooperative pleasant cont plan of care . Reason for continued inpatient stay Substantial Risk for: inability to function, rapid decompensation and med/psych decompensation Time Spent With Patient Time: Total time managing care of this patient today __20__ minutes.
[2024-04-08 20:00] VITALS: BP 143/62; PULSE 74; RESP 16; TEMP 36.6; O2SAT 98
[2024-04-08] MEDS: Atorvastatin Calcium 10 MG TABLET PO (20:05)
[2024-04-08] MEDS: metFORMIN HCl 500 MG TABLET PO (20:06)
[2024-04-08] MEDS: Donepezil HCl 5 MG TABLET PO (20:07)
[2024-04-08] MEDS: Zolpidem Tartrate 5 MG TABLET PO (20:07)
[2024-04-09] MEDS: Levothyroxine Sodium 88 MCG TABLET PO (05:50)
[2024-04-09 06:24] LABS: Glucose, Whole Blood 185 mg/dL (60-115)
[2024-04-09 08:00] VITALS: BP 137/63; PULSE 67; RESP 16; TEMP 36.2; O2SAT 96
[2024-04-09] MEDS: CYCLOSPORINE 1 EACH EYE-BOTH ×2 (08:50→20:54)
[2024-04-09 08:51] VITALS: BP 137/63
[2024-04-09] MEDS: Acetaminophen 325 MG TABLET 650 MG PO ×2 (08:51→20:55)
[2024-04-09] MEDS: allopurinoL 100 MG TABLET PO (08:51)
[2024-04-09] MEDS: amLODIPine Besylate 2.5 MG TABLET PO (08:51)
[2024-04-09] MEDS: Memantine HCl 5 MG TABLET PO (08:51)
[2024-04-09] MEDS: SITagliptin Phosphate 50 MG TABLET PO (08:51)
[2024-04-09] MEDS: Escitalopram Oxalate 10 MG TABLET PO (08:52)
[2024-04-09] MEDS: Cholecalciferol (Vitamin D3) 25 MCG TABLET PO (08:52)
[2024-04-09] MEDS: Carbamide Peroxide 6.5% Otic 15 ML DRPBTL 5 DROP EAR-BOTH (11:04)
--- NOTE | 2024-04-09 16:35 | HO.PSYCHPN ---
Subjective Subjective Date of Service: 04/09/24 Reason For Visit: psychosis Subjective Notes: Conditional Voluntary Interim History: The nursing staff reported no changes in mental status fully compliant with treatment. On interview the patient denies new symptoms, she is asking for her discharge planning. Mental Status Exam Mental Status Exam Patient Appearance: Appropriate Patient Orientation: Person and Situation Level of Consciousness: Awake and Appropriate Patient Behavior: Guarded and Passive Mood Description: Withdrawn Affect Description: Constricted Patient Cognition Impaired: Yes Ability to Follow Directions: Good Speech Pattern: Clear Hallucinations: None Delusions: Not Present Thought Process: Distracted and Slowed Thinking Thought Content: positive for [place] and positive for Poverty of Content Judgement: Fair Diagnostics Vital Signs (24Hr): Vital Signs - 24 hr 04/08/24 20:00 04/09/24 08:00 04/09/24 08:51 Temperature 97.8 F 97.2 F Pulse Rate 74 67 Respiratory Rate 16 16 Blood Pressure 143/62 H 137/63 137/63 Pulse Oximetry 98 96 Oxygen Delivery Method Room Air Room Air BMI result Body Mass Index 32.4 Labs 01/06/24 07:28 04/07/24 08:52 Labs: Laboratory Results - last 48 hr 04/08/24 04/09/24 05:31 05:49 POC Glucose 122 H 185 H Medications Medications Current Medications Acetaminophen (Acetaminophen 325 Mg Tablet) 650 mg PO Q6H PRN PRN Reason: Headache/Pain Mild Scale (1-3) Last Admin: 04/09/24 08:51 Dose: 650 mg Al Hydroxide/Mg Hydroxide (Magnesium Hydrox/Alum Hydrox 30 Ml Oral.Susp) 30 ml PO Q6H PRN PRN Reason: Heartburn/Nausea Allopurinol (Allopurinol 100 Mg Tablet) 100 mg PO DAILY [facility] Last Admin: 04/09/24 08:51 Dose: 100 mg Amlodipine Besylate (Amlodipine Besylate 2.5 Mg Tablet) 2.5 mg PO DAILY [facility]; Protocol Last Admin: 04/09/24 08:51 Dose: 2.5 mg Artificial Tears (Artificial Tears 15 Ml Drops) 2 drop EYE-BOTH Q4H PRN PRN Reason: Dry Eyes Last Admin: 04/02/24 20:16 Dose: 2 drop Atorvastatin Calcium (Atorvastatin Calcium 10 Mg Tablet) 10 mg PO BEDTIME [facility] Last Admin: 04/08/24 20:05 Dose: 10 mg Cyclobenzaprine HCl (Cyclobenzaprine Hcl 5 Mg Tablet) 5 mg PO TID PRN PRN Reason: Back spasms Donepezil HCl (Donepezil Hcl 5 Mg Tablet) 5 mg PO BEDTIME [facility] Last Admin: 04/08/24 20:07 Dose: 5 mg Escitalopram Oxalate (Escitalopram Oxalate 10 Mg Tablet) 10 mg PO DAILY [facility] Last Admin: 04/09/24 08:52 Dose: 10 mg Levothyroxine Sodium (Levothyroxine Sodium 88 Mcg Tablet) 88 mcg PO DAILY@0600 [facility] Last Admin: 04/09/24 05:50 Dose: 88 mcg Loperamide HCl (Loperamide Hcl 2 Mg Capsule) 2 mg PO Q4H PRN PRN Reason: Loose Stool Loratadine (Loratadine 10 Mg Tablet) 10 mg PO DAILY PRN PRN Reason: seasonal allergies Last Admin: 04/07/24 20:07 Dose: 10 mg Magnesium Hydroxide (Milk Of Magnesia 30 Ml Oral.Susp) 30 ml PO DAILY PRN PRN Reason: Constipation Memantine (Memantine Hcl 5 Mg Tablet) 5 mg PO DAILY [facility] Last Admin: 04/09/24 08:51 Dose: 5 mg Metformin HCl (Metformin Hcl 500 Mg Tablet) 500 mg PO BEDTIME [facility] Last Admin: 04/08/24 20:06 Dose: 500 mg Pt Own (Cyclosporine ([Restasis] 1 Drop)) 1 drop EYE-BOTH BID [facility] Last Admin: 04/09/24 08:50 Dose: 1 drop Olanzapine (Olanzapine 2.5 Mg Tablet) 2.5 mg PO Q4H PRN PRN Reason: agitation/acute psychosis Simethicone (Simethicone 80 Mg Tab.Chew) 80 mg PO QIDWMHS PRN PRN Reason: bloating Last Admin: 04/08/24 20:08 Dose: 80 mg Sitagliptin Phosphate (Sitagliptin Phosphate 50 Mg Tablet) 50 mg PO DAILY [facility] Last Admin: 04/09/24 08:51 Dose: 50 mg Trazodone HCl (Trazodone Hcl 50 Mg Tablet) 50 mg PO BEDTIME MRX1 PRN PRN Reason: Insomnia Last Admin: 02/05/24 21:08 Dose: 50 mg Vitamin D (Cholecalciferol (Vitamin D3) 25 Mcg Tablet) 25 mcg PO DAILY [facility] Last Admin: 04/09/24 08:52 Dose: 25 mcg Zolpidem Tartrate (Zolpidem Tartrate 5 Mg Tablet) 5 mg PO BEDTIME [facility] Last Admin: 04/08/24 20:07 Dose: 5 mg Allergies Allergies Allergy/AdvReac Type Severity Reaction Status Date / Time codeine Allergy Unknown Verified 12/07/23 20:27 Assessment & Plan Assessment & Plan (1) Dementia with psychotic disturbance: Status: Acute Code(s): F03.92 - Unspecified dementia, unspecified severity, with psychotic disturbance Plan Pt calm some delusional concern generally cooperative pleasant cont plan of care . Reason for continued inpatient stay Substantial Risk for: inability to function, rapid decompensation and med/psych decompensation Time Spent With Patient Time: Total time managing care of this patient today _20___ minutes.
[2024-04-09 20:00] VITALS: BP 123/63; PULSE 70; RESP 16; TEMP 35.9; O2SAT 100
[2024-04-09] MEDS: metFORMIN HCl 500 MG TABLET PO (20:56)
[2024-04-09] MEDS: Simethicone 80 MG TAB.CHEW PO (20:56)
[2024-04-09] MEDS: Zolpidem Tartrate 5 MG TABLET PO (20:57)
[2024-04-09] MEDS: Donepezil HCl 5 MG TABLET PO (20:57)
[2024-04-09] MEDS: Atorvastatin Calcium 10 MG TABLET PO (20:57)
[2024-04-10] MEDS: Levothyroxine Sodium 88 MCG TABLET PO (06:18)
[2024-04-10 06:41] LABS: Glucose, Whole Blood 127 mg/dL (60-115)
[2024-04-10 07:55] VITALS: BP 141/58; PULSE 66; RESP 18; TEMP 36.8; O2SAT 97
[2024-04-10] MEDS: CYCLOSPORINE 1 EACH EYE-BOTH ×2 (08:48→20:14)
[2024-04-10] MEDS: allopurinoL 100 MG TABLET PO (08:48)
[2024-04-10] MEDS: amLODIPine Besylate 2.5 MG TABLET PO (08:48)
[2024-04-10] MEDS: Escitalopram Oxalate 10 MG TABLET PO (08:48)
[2024-04-10] MEDS: Cholecalciferol (Vitamin D3) 25 MCG TABLET PO (08:48)
[2024-04-10] MEDS: Memantine HCl 5 MG TABLET PO (08:48)
[2024-04-10] MEDS: SITagliptin Phosphate 50 MG TABLET PO (08:48)
[2024-04-10] MEDS: Acetaminophen 325 MG TABLET 650 MG PO ×2 (09:04→20:15)
[2024-04-10] MEDS: Simethicone 80 MG TAB.CHEW PO ×2 (09:05→20:15)
--- NOTE | 2024-04-10 13:45 | P.PNPSI_ITS ---
Subjective Subjective Date of Service: 04/10/24 Reason For Visit: psychosis Subjective Notes: Conditional Voluntary Interim History: The nursing staff reported no changes in her mental status fully compliant with treatment. On interview the patient denies new symptoms, waiting for placement. Mental Status Exam Mental Status Exam Patient Appearance: Appropriate Patient Orientation: Person and Situation Level of Consciousness: Awake and Appropriate Patient Behavior: Guarded and Passive Mood Description: Calm Affect Description: Constricted Patient Cognition Impaired: Yes Ability to Follow Directions: Good Speech Pattern: Clear Hallucinations: None Delusions: Ideas of Reference Thought Process: Distracted and Slowed Thinking Thought Content: positive for [place] and positive for Poverty of Content Judgement: Fair Diagnostics Vital Signs (24Hr): Vital Signs - 24 hr 04/09/24 20:00 04/10/24 07:55 Temperature 96.6 F L 98.2 F Pulse Rate 70 66 Respiratory Rate 16 18 Blood Pressure 123/63 141/58 H Pulse Oximetry 100 97 Oxygen Delivery Method Room Air Room Air BMI result Body Mass Index 32.4 Labs 01/06/24 07:28 04/07/24 08:52 Labs: Laboratory Results - last 48 hr 04/09/24 04/10/24 05:49 06:18 POC Glucose 185 H 127 H Medications Medications Current Medications Acetaminophen (Acetaminophen 325 Mg Tablet) 650 mg PO Q6H PRN PRN Reason: Headache/Pain Mild Scale (1-3) Last Admin: 04/10/24 09:04 Dose: 650 mg Al Hydroxide/Mg Hydroxide (Magnesium Hydrox/Alum Hydrox 30 Ml Oral.Susp) 30 ml PO Q6H PRN PRN Reason: Heartburn/Nausea Allopurinol (Allopurinol 100 Mg Tablet) 100 mg PO DAILY [facility] Last Admin: 04/10/24 08:48 Dose: 100 mg Amlodipine Besylate (Amlodipine Besylate 2.5 Mg Tablet) 2.5 mg PO DAILY [facility]; Protocol Last Admin: 04/10/24 08:48 Dose: 2.5 mg Artificial Tears (Artificial Tears 15 Ml Drops) 2 drop EYE-BOTH Q4H PRN PRN Reason: Dry Eyes Last Admin: 04/02/24 20:16 Dose: 2 drop Atorvastatin Calcium (Atorvastatin Calcium 10 Mg Tablet) 10 mg PO BEDTIME [facility] Last Admin: 04/09/24 20:57 Dose: 10 mg Cyclobenzaprine HCl (Cyclobenzaprine Hcl 5 Mg Tablet) 5 mg PO TID PRN PRN Reason: Back spasms Donepezil HCl (Donepezil Hcl 5 Mg Tablet) 5 mg PO BEDTIME [facility] Last Admin: 04/09/24 20:57 Dose: 5 mg Escitalopram Oxalate (Escitalopram Oxalate 10 Mg Tablet) 10 mg PO DAILY [facility] Last Admin: 04/10/24 08:48 Dose: 10 mg Levothyroxine Sodium (Levothyroxine Sodium 88 Mcg Tablet) 88 mcg PO DAILY@0600 [facility] Last Admin: 04/10/24 06:18 Dose: 88 mcg Loperamide HCl (Loperamide Hcl 2 Mg Capsule) 2 mg PO Q4H PRN PRN Reason: Loose Stool Loratadine (Loratadine 10 Mg Tablet) 10 mg PO DAILY PRN PRN Reason: seasonal allergies Last Admin: 04/07/24 20:07 Dose: 10 mg Magnesium Hydroxide (Milk Of Magnesia 30 Ml Oral.Susp) 30 ml PO DAILY PRN PRN Reason: Constipation Memantine (Memantine Hcl 5 Mg Tablet) 5 mg PO DAILY [facility] Last Admin: 04/10/24 08:48 Dose: 5 mg Metformin HCl (Metformin Hcl 500 Mg Tablet) 500 mg PO BEDTIME [facility] Last Admin: 04/09/24 20:56 Dose: 500 mg Pt Own (Cyclosporine ([Restasis] 1 Drop)) 1 drop EYE-BOTH BID [facility] Last Admin: 04/10/24 08:48 Dose: 1 drop Olanzapine (Olanzapine 2.5 Mg Tablet) 2.5 mg PO Q4H PRN PRN Reason: agitation/acute psychosis Simethicone (Simethicone 80 Mg Tab.Chew) 80 mg PO QIDWMHS PRN PRN Reason: bloating Last Admin: 04/10/24 09:05 Dose: 80 mg Sitagliptin Phosphate (Sitagliptin Phosphate 50 Mg Tablet) 50 mg PO DAILY [facility] Last Admin: 04/10/24 08:48 Dose: 50 mg Trazodone HCl (Trazodone Hcl 50 Mg Tablet) 50 mg PO BEDTIME MRX1 PRN PRN Reason: Insomnia Last Admin: 02/05/24 21:08 Dose: 50 mg Vitamin D (Cholecalciferol (Vitamin D3) 25 Mcg Tablet) 25 mcg PO DAILY [facility] Last Admin: 04/10/24 08:48 Dose: 25 mcg Zolpidem Tartrate (Zolpidem Tartrate 5 Mg Tablet) 5 mg PO BEDTIME [facility] Last Admin: 04/09/24 20:57 Dose: 5 mg Allergies Allergies Allergy/AdvReac Type Severity Reaction Status Date / Time codeine Allergy Unknown Verified 12/07/23 20:27 Assessment & Plan Assessment & Plan (1) Dementia with psychotic disturbance: Status: Acute Code(s): F03.92 - Unspecified dementia, unspecified severity, with psychotic disturbance Plan Pt calm some delusional concern generally cooperative pleasant cont plan of care . Reason for continued inpatient stay Substantial Risk for: inability to function, rapid decompensation and med/psych decompensation Time Spent With Patient Time: Total time managing care of this patient today _20___ minutes.
[2024-04-10 19:38] VITALS: BP 130/60; PULSE 64; TEMP 36.6; O2SAT 97
[2024-04-10] MEDS: metFORMIN HCl 500 MG TABLET PO (20:15)
[2024-04-10] MEDS: Donepezil HCl 5 MG TABLET PO (20:16)
[2024-04-10] MEDS: Zolpidem Tartrate 5 MG TABLET PO (20:16)
[2024-04-10] MEDS: Atorvastatin Calcium 10 MG TABLET PO (20:17)
[2024-04-10] MEDS: Loratadine 10 MG TABLET PO (20:23)
[2024-04-11] MEDS: Levothyroxine Sodium 88 MCG TABLET PO (06:07)
[2024-04-11 06:53] LABS: Glucose, Whole Blood 192 mg/dL (60-115)
[2024-04-11 07:00] VITALS: BMI 28.0
[2024-04-11 07:55] VITALS: BP 136/61; PULSE 65; RESP 18; TEMP 36.8; O2SAT 96
[2024-04-11] MEDS: Simethicone 80 MG TAB.CHEW PO ×2 (08:21→21:06)
[2024-04-11] MEDS: Escitalopram Oxalate 10 MG TABLET PO (08:21)
[2024-04-11] MEDS: Cholecalciferol (Vitamin D3) 25 MCG TABLET PO (08:21)
[2024-04-11] MEDS: amLODIPine Besylate 2.5 MG TABLET PO (08:21)
[2024-04-11] MEDS: Acetaminophen 325 MG TABLET 650 MG PO ×2 (08:21→21:06)
[2024-04-11] MEDS: SITagliptin Phosphate 50 MG TABLET PO (08:21)
[2024-04-11] MEDS: Memantine HCl 5 MG TABLET PO (08:21)
[2024-04-11] MEDS: CYCLOSPORINE 1 EACH EYE-BOTH ×2 (08:22→21:05)
[2024-04-11] MEDS: allopurinoL 100 MG TABLET PO (08:22)
--- NOTE | 2024-04-11 08:43 | P.PNPSI_ITS ---
Subjective Subjective Date of Service: 04/11/24 Reason For Visit: psychosis Subjective Notes: Conditional Voluntary Interim History: Pt sleeping through the night. She denies any concerns. She reports she is doing well. No SI/HI. No behavioral concerns. mostly in bed, encouraged to get out of bed. Medication Compliance: Yes Review of Systems Review of Systems unremarkable Yes all other systems are reviewed and are negative Constitutional: Reports fatigue, Reports malaise and Reports weakness Reports vertigo and Reports dizziness Cardiovascular: Reports lightheadedness Reports vertigo, Reports dizziness and Reports weakness Endocrine: Reports fatigue Mental Status Exam Mental Status Exam Narrative: Appearance: wearing casual clothing, in bed, no NAD Behavior: cooperative Psychomotor: no retardation or agitation noted Speech: clear, normal rate/rhythm/volume, spontaneous TP: mostly linear TC: feeling okay Mood: fine Affect: congruent, SI: denies HI: denies VH/AH: none Delusions: not reported Insight/judgment: Limited memory/cog: alert, oriented x 3. Diagnostics Vital Signs (24Hr): Vital Signs - 24 hr 04/10/24 19:38 Temperature 97.8 F Pulse Rate 64 Blood Pressure 130/60 Pulse Oximetry 97 Oxygen Delivery Method Room Air BMI result Body Mass Index 32.4 Labs 01/06/24 07:28 04/07/24 08:52 Labs: Laboratory Results - last 48 hr 04/10/24 04/11/24 06:18 06:06 POC Glucose 127 H 192 H Medications Medications Current Medications Acetaminophen (Acetaminophen 325 Mg Tablet) 650 mg PO Q6H PRN PRN Reason: Headache/Pain Mild Scale (1-3) Last Admin: 04/11/24 08:21 Dose: 650 mg Al Hydroxide/Mg Hydroxide (Magnesium Hydrox/Alum Hydrox 30 Ml Oral.Susp) 30 ml PO Q6H PRN PRN Reason: Heartburn/Nausea Allopurinol (Allopurinol 100 Mg Tablet) 100 mg PO DAILY [facility] Last Admin: 04/11/24 08:22 Dose: 100 mg Amlodipine Besylate (Amlodipine Besylate 2.5 Mg Tablet) 2.5 mg PO DAILY [facility]; Protocol Last Admin: 04/11/24 08:21 Dose: 2.5 mg Artificial Tears (Artificial Tears 15 Ml Drops) 2 drop EYE-BOTH Q4H PRN PRN Reason: Dry Eyes Last Admin: 04/02/24 20:16 Dose: 2 drop Atorvastatin Calcium (Atorvastatin Calcium 10 Mg Tablet) 10 mg PO BEDTIME [facility] Last Admin: 04/10/24 20:17 Dose: 10 mg Cyclobenzaprine HCl (Cyclobenzaprine Hcl 5 Mg Tablet) 5 mg PO TID PRN PRN Reason: Back spasms Donepezil HCl (Donepezil Hcl 5 Mg Tablet) 5 mg PO BEDTIME [facility] Last Admin: 04/10/24 20:16 Dose: 5 mg Escitalopram Oxalate (Escitalopram Oxalate 10 Mg Tablet) 10 mg PO DAILY [facility] Last Admin: 04/11/24 08:21 Dose: 10 mg Levothyroxine Sodium (Levothyroxine Sodium 88 Mcg Tablet) 88 mcg PO DAILY@0600 [facility] Last Admin: 04/11/24 06:07 Dose: 88 mcg Loperamide HCl (Loperamide Hcl 2 Mg Capsule) 2 mg PO Q4H PRN PRN Reason: Loose Stool Loratadine (Loratadine 10 Mg Tablet) 10 mg PO DAILY PRN PRN Reason: seasonal allergies Last Admin: 04/10/24 20:23 Dose: 10 mg Magnesium Hydroxide (Milk Of Magnesia 30 Ml Oral.Susp) 30 ml PO DAILY PRN PRN Reason: Constipation Memantine (Memantine Hcl 5 Mg Tablet) 5 mg PO DAILY [facility] Last Admin: 04/11/24 08:21 Dose: 5 mg Metformin HCl (Metformin Hcl 500 Mg Tablet) 500 mg PO BEDTIME [facility] Last Admin: 04/10/24 20:15 Dose: 500 mg Pt Own (Cyclosporine ([Restasis] 1 Drop)) 1 drop EYE-BOTH BID [facility] Last Admin: 04/11/24 08:22 Dose: 1 drop Olanzapine (Olanzapine 2.5 Mg Tablet) 2.5 mg PO Q4H PRN PRN Reason: agitation/acute psychosis Simethicone (Simethicone 80 Mg Tab.Chew) 80 mg PO QIDWMHS PRN PRN Reason: bloating Last Admin: 04/11/24 08:21 Dose: 80 mg Sitagliptin Phosphate (Sitagliptin Phosphate 50 Mg Tablet) 50 mg PO DAILY [facility] Last Admin: 04/11/24 08:21 Dose: 50 mg Trazodone HCl (Trazodone Hcl 50 Mg Tablet) 50 mg PO BEDTIME MRX1 PRN PRN Reason: Insomnia Last Admin: 02/05/24 21:08 Dose: 50 mg Vitamin D (Cholecalciferol (Vitamin D3) 25 Mcg Tablet) 25 mcg PO DAILY [facility] Last Admin: 04/11/24 08:21 Dose: 25 mcg Zolpidem Tartrate (Zolpidem Tartrate 5 Mg Tablet) 5 mg PO BEDTIME [facility] Last Admin: 04/10/24 20:16 Dose: 5 mg Allergies Allergies Allergy/AdvReac Type Severity Reaction Status Date / Time codeine Allergy Unknown Verified 12/07/23 20:27 Assessment & Plan Assessment & Plan (1) Dementia with psychotic disturbance: Status: Acute Code(s): F03.92 - Unspecified dementia, unspecified severity, with psychotic disturbance Plan Pt calm some delusional concern generally cooperative pleasant cont plan of care . Reason for continued inpatient stay Substantial Risk for: inability to function Time Spent With Patient Time: Total time managing care of this patient today ____ minutes.
[2024-04-11 19:17] VITALS: BP 114/60; PULSE 64; TEMP 36.3; O2SAT 97
[2024-04-11] MEDS: Zolpidem Tartrate 5 MG TABLET PO (21:06)
[2024-04-11] MEDS: Atorvastatin Calcium 10 MG TABLET PO (21:06)
[2024-04-11] MEDS: metFORMIN HCl 500 MG TABLET PO (21:06)
[2024-04-11] MEDS: Donepezil HCl 5 MG TABLET PO (21:06)
[2024-04-12] MEDS: Levothyroxine Sodium 88 MCG TABLET PO (05:40)
[2024-04-12 06:25] LABS: Glucose, Whole Blood 129 mg/dL (60-115)
[2024-04-12 10:24] VITALS: BP 161/88; PULSE 68; RESP 16; TEMP 36.5; O2SAT 96
[2024-04-12] MEDS: Simethicone 80 MG TAB.CHEW PO ×2 (10:44→20:24)
[2024-04-12] MEDS: Acetaminophen 325 MG TABLET 650 MG PO ×2 (10:44→20:22)
[2024-04-12] MEDS: allopurinoL 100 MG TABLET PO (10:45)
[2024-04-12] MEDS: Escitalopram Oxalate 10 MG TABLET PO (10:45)
[2024-04-12] MEDS: amLODIPine Besylate 2.5 MG TABLET PO (10:45)
[2024-04-12] MEDS: SITagliptin Phosphate 50 MG TABLET PO (10:45)
[2024-04-12] MEDS: Memantine HCl 5 MG TABLET PO (10:45)
[2024-04-12] MEDS: Cholecalciferol (Vitamin D3) 25 MCG TABLET PO (10:45)
[2024-04-12] MEDS: CYCLOSPORINE 1 EACH EYE-BOTH ×2 (10:46→20:21)
--- NOTE | 2024-04-12 13:45 | HO.PSYCHPN ---
Subjective Subjective Date of Service: 04/12/24 Reason For Visit: psychosis Subjective Notes: Conditional Voluntary Interim History: The nursing staff reported the patient had been compliant with treatment, no changes in mental status. The social work msw reported that the house had been now did to her and she can apply now to [facility]. On interview the patient denies new singing, waiting for placement. Mental Status Exam Mental Status Exam Patient Appearance: Well Grooomed Patient Orientation: Person and Situation Level of Consciousness: Awake and Appropriate Patient Behavior: Guarded and Passive Mood Description: Withdrawn Affect Description: Constricted Patient Cognition Impaired: Yes Ability to Follow Directions: Good Speech Pattern: Clear Hallucinations: None Delusions: Ideas of Reference Thought Process: Distracted and Slowed Thinking Thought Content: positive for [place] and positive for Poverty of Content Judgement: Fair Diagnostics Vital Signs (24Hr): Vital Signs - 24 hr 04/11/24 19:17 04/12/24 10:24 Temperature 97.3 F 97.7 F Pulse Rate 64 68 Respiratory Rate 16 Blood Pressure 114/60 161/88 H Pulse Oximetry 97 96 Oxygen Delivery Method Room Air Room Air BMI result Body Mass Index 28.0 Labs 01/06/24 07:28 04/07/24 08:52 Labs: Laboratory Results - last 48 hr 04/11/24 04/12/24 06:06 05:42 POC Glucose 192 H 129 H Medications Medications Current Medications Acetaminophen (Acetaminophen 325 Mg Tablet) 650 mg PO Q6H PRN PRN Reason: Headache/Pain Mild Scale (1-3) Last Admin: 04/12/24 10:44 Dose: 650 mg Al Hydroxide/Mg Hydroxide (Magnesium Hydrox/Alum Hydrox 30 Ml Oral.Susp) 30 ml PO Q6H PRN PRN Reason: Heartburn/Nausea Allopurinol (Allopurinol 100 Mg Tablet) 100 mg PO DAILY [facility] Last Admin: 04/12/24 10:45 Dose: 100 mg Amlodipine Besylate (Amlodipine Besylate 2.5 Mg Tablet) 2.5 mg PO DAILY [facility]; Protocol Last Admin: 04/12/24 10:45 Dose: 2.5 mg Artificial Tears (Artificial Tears 15 Ml Drops) 2 drop EYE-BOTH Q4H PRN PRN Reason: Dry Eyes Last Admin: 04/02/24 20:16 Dose: 2 drop Atorvastatin Calcium (Atorvastatin Calcium 10 Mg Tablet) 10 mg PO BEDTIME [facility] Last Admin: 04/11/24 21:06 Dose: 10 mg Cyclobenzaprine HCl (Cyclobenzaprine Hcl 5 Mg Tablet) 5 mg PO TID PRN PRN Reason: Back spasms Donepezil HCl (Donepezil Hcl 5 Mg Tablet) 5 mg PO BEDTIME [facility] Last Admin: 04/11/24 21:06 Dose: 5 mg Escitalopram Oxalate (Escitalopram Oxalate 10 Mg Tablet) 10 mg PO DAILY [facility] Last Admin: 04/12/24 10:45 Dose: 10 mg Levothyroxine Sodium (Levothyroxine Sodium 88 Mcg Tablet) 88 mcg PO DAILY@0600 [facility] Last Admin: 04/12/24 05:40 Dose: 88 mcg Loperamide HCl (Loperamide Hcl 2 Mg Capsule) 2 mg PO Q4H PRN PRN Reason: Loose Stool Loratadine (Loratadine 10 Mg Tablet) 10 mg PO DAILY PRN PRN Reason: seasonal allergies Last Admin: 04/10/24 20:23 Dose: 10 mg Magnesium Hydroxide (Milk Of Magnesia 30 Ml Oral.Susp) 30 ml PO DAILY PRN PRN Reason: Constipation Memantine (Memantine Hcl 5 Mg Tablet) 5 mg PO DAILY [facility] Last Admin: 04/12/24 10:45 Dose: 5 mg Metformin HCl (Metformin Hcl 500 Mg Tablet) 500 mg PO BEDTIME [facility] Last Admin: 04/11/24 21:06 Dose: 500 mg Pt Own (Cyclosporine ([Restasis] 1 Drop)) 1 drop EYE-BOTH BID [facility] Last Admin: 04/12/24 10:46 Dose: 1 drop Olanzapine (Olanzapine 2.5 Mg Tablet) 2.5 mg PO Q4H PRN PRN Reason: agitation/acute psychosis Simethicone (Simethicone 80 Mg Tab.Chew) 80 mg PO QIDWMHS PRN PRN Reason: bloating Last Admin: 04/12/24 10:44 Dose: 80 mg Sitagliptin Phosphate (Sitagliptin Phosphate 50 Mg Tablet) 50 mg PO DAILY [facility] Last Admin: 04/12/24 10:45 Dose: 50 mg Trazodone HCl (Trazodone Hcl 50 Mg Tablet) 50 mg PO BEDTIME MRX1 PRN PRN Reason: Insomnia Last Admin: 02/05/24 21:08 Dose: 50 mg Vitamin D (Cholecalciferol (Vitamin D3) 25 Mcg Tablet) 25 mcg PO DAILY [facility] Last Admin: 04/12/24 10:45 Dose: 25 mcg Zolpidem Tartrate (Zolpidem Tartrate 5 Mg Tablet) 5 mg PO BEDTIME [facility] Last Admin: 04/11/24 21:06 Dose: 5 mg Allergies Allergies Allergy/AdvReac Type Severity Reaction Status Date / Time codeine Allergy Unknown Verified 12/07/23 20:27 Assessment & Plan Assessment & Plan (1) Dementia with psychotic disturbance: Status: Acute Code(s): F03.92 - Unspecified dementia, unspecified severity, with psychotic disturbance Plan Pt calm some delusional concern generally cooperative pleasant cont plan of care . Reason for continued inpatient stay Substantial Risk for: inability to function, rapid decompensation and med/psych decompensation Time Spent With Patient Time: Total time managing care of this patient today __20__ minutes.
[2024-04-12 20:00] VITALS: BP 132/52; PULSE 67; RESP 16; TEMP 36.6; O2SAT 97
[2024-04-12] MEDS: Zolpidem Tartrate 5 MG TABLET PO (20:21)
[2024-04-12] MEDS: metFORMIN HCl 500 MG TABLET PO (20:23)
[2024-04-12] MEDS: Atorvastatin Calcium 10 MG TABLET PO (20:23)
[2024-04-12] MEDS: Donepezil HCl 5 MG TABLET PO (20:23)
[2024-04-13] MEDS: Levothyroxine Sodium 88 MCG TABLET PO (06:03)
[2024-04-13 07:00] LABS: Glucose, Whole Blood 119 mg/dL (60-115)
[2024-04-13 07:45] LABS: Creatinine Clr Calc Pharmacy 35.6; Estimated Glomerular Filt Rate 43
[2024-04-13 08:23] VITALS: BP 124/59; PULSE 59; RESP 17; TEMP 36.6; O2SAT 95
[2024-04-13] MEDS: Memantine HCl 5 MG TABLET PO (08:25)
[2024-04-13] MEDS: Cholecalciferol (Vitamin D3) 25 MCG TABLET PO (08:25)
[2024-04-13] MEDS: allopurinoL 100 MG TABLET PO (08:25)
[2024-04-13] MEDS: Acetaminophen 325 MG TABLET 650 MG PO ×2 (08:25→20:59)
[2024-04-13] MEDS: SITagliptin Phosphate 50 MG TABLET PO (08:25)
[2024-04-13] MEDS: CYCLOSPORINE 1 EACH EYE-BOTH ×2 (08:25→21:00)
[2024-04-13] MEDS: Escitalopram Oxalate 10 MG TABLET PO (08:25)
[2024-04-13] MEDS: amLODIPine Besylate 2.5 MG TABLET PO (08:25)
[2024-04-13] MEDS: Simethicone 80 MG TAB.CHEW PO ×2 (08:26→21:08)
[2024-04-13 20:00] VITALS: BP 141/63; PULSE 69; RESP 18; TEMP 36.9; O2SAT 97
[2024-04-13] MEDS: metFORMIN HCl 500 MG TABLET PO (20:59)
[2024-04-13] MEDS: Atorvastatin Calcium 10 MG TABLET PO (21:00)
[2024-04-13] MEDS: Zolpidem Tartrate 5 MG TABLET PO (21:00)
[2024-04-13] MEDS: Donepezil HCl 5 MG TABLET PO (21:00)
[2024-04-13] MEDS: Loratadine 10 MG TABLET PO (21:18)
[2024-04-14] MEDS: Levothyroxine Sodium 88 MCG TABLET PO (06:15)
[2024-04-14 06:33] LABS: Glucose, Whole Blood 166 mg/dL (60-115)
[2024-04-14 09:20] VITALS: BP 144/65; PULSE 67; RESP 18; TEMP 35.9; O2SAT 98
[2024-04-14] MEDS: Cholecalciferol (Vitamin D3) 25 MCG TABLET PO (09:29)
[2024-04-14] MEDS: CYCLOSPORINE 1 EACH EYE-BOTH ×2 (09:29→21:37)
[2024-04-14] MEDS: Simethicone 80 MG TAB.CHEW PO ×2 (09:29→21:39)
[2024-04-14] MEDS: Memantine HCl 5 MG TABLET PO (09:30)
[2024-04-14] MEDS: Acetaminophen 325 MG TABLET 650 MG PO ×2 (09:30→21:39)
[2024-04-14] MEDS: amLODIPine Besylate 2.5 MG TABLET PO (09:31)
[2024-04-14] MEDS: allopurinoL 100 MG TABLET PO (09:31)
[2024-04-14] MEDS: SITagliptin Phosphate 50 MG TABLET PO (09:32)
[2024-04-14] MEDS: Escitalopram Oxalate 10 MG TABLET PO (09:32)
--- NOTE | 2024-04-14 12:11 | HO.PSYCHPN ---
Subjective Subjective Date of Service: 04/13/24 Reason For Visit: psychosis Subjective Notes: Section 8 Interim History: Pt slept through the night. She reports doing well. She denies any concerns. No SI/HI. No overt psychosis or delusions. Review of Systems Review of Systems unremarkable Yes all other systems are reviewed and are negative Constitutional: Reports fatigue, Reports malaise and Reports weakness Reports vertigo and Reports dizziness Cardiovascular: Reports lightheadedness Reports vertigo, Reports dizziness and Reports weakness Endocrine: Reports fatigue Mental Status Exam Mental Status Exam Narrative: Appearance: wearing casual clothing, in bed, no NAD Behavior: cooperative Psychomotor: no retardation or agitation noted Speech: clear, normal rate/rhythm/volume, spontaneous TP: mostly linear TC: feeling okay Mood: fine Affect: congruent, SI: denies HI: denies VH/AH: none Delusions: not reported Insight/judgment: Limited memory/cog: alert, oriented x 3. Diagnostics Vital Signs (24Hr): Vital Signs - 24 hr 04/13/24 20:00 04/14/24 09:20 Temperature 98.4 F 96.6 F L Pulse Rate 69 67 Respiratory Rate 18 18 Blood Pressure 141/63 H 144/65 H Pulse Oximetry 97 98 Oxygen Delivery Method Room Air Room Air BMI result Body Mass Index 28.0 Labs 01/06/24 07:28 04/13/24 07:21 Labs: Laboratory Results - last 48 hr 04/13/24 04/13/24 04/14/24 06:32 07:21 06:19 Creatinine 1.20 Estim Creat Clear Calc 35.6 Estimated GFR 43 POC Glucose 119 H 166 H Medications Medications Current Medications Acetaminophen (Acetaminophen 325 Mg Tablet) 650 mg PO Q6H PRN PRN Reason: Headache/Pain Mild Scale (1-3) Last Admin: 04/14/24 09:30 Dose: 650 mg Al Hydroxide/Mg Hydroxide (Magnesium Hydrox/Alum Hydrox 30 Ml Oral.Susp) 30 ml PO Q6H PRN PRN Reason: Heartburn/Nausea Allopurinol (Allopurinol 100 Mg Tablet) 100 mg PO DAILY [facility] Last Admin: 04/14/24 09:31 Dose: 100 mg Amlodipine Besylate (Amlodipine Besylate 2.5 Mg Tablet) 2.5 mg PO DAILY [facility]; Protocol Last Admin: 04/14/24 09:31 Dose: 2.5 mg Artificial Tears (Artificial Tears 15 Ml Drops) 2 drop EYE-BOTH Q4H PRN PRN Reason: Dry Eyes Last Admin: 04/02/24 20:16 Dose: 2 drop Atorvastatin Calcium (Atorvastatin Calcium 10 Mg Tablet) 10 mg PO BEDTIME [facility] Last Admin: 04/13/24 21:00 Dose: 10 mg Cyclobenzaprine HCl (Cyclobenzaprine Hcl 5 Mg Tablet) 5 mg PO TID PRN PRN Reason: Back spasms Donepezil HCl (Donepezil Hcl 5 Mg Tablet) 5 mg PO BEDTIME [facility] Last Admin: 04/13/24 21:00 Dose: 5 mg Escitalopram Oxalate (Escitalopram Oxalate 10 Mg Tablet) 10 mg PO DAILY [facility] Last Admin: 04/14/24 09:32 Dose: 10 mg Levothyroxine Sodium (Levothyroxine Sodium 88 Mcg Tablet) 88 mcg PO DAILY@0600 [facility] Last Admin: 04/14/24 06:15 Dose: 88 mcg Loperamide HCl (Loperamide Hcl 2 Mg Capsule) 2 mg PO Q4H PRN PRN Reason: Loose Stool Loratadine (Loratadine 10 Mg Tablet) 10 mg PO DAILY PRN PRN Reason: seasonal allergies Last Admin: 04/13/24 21:18 Dose: 10 mg Magnesium Hydroxide (Milk Of Magnesia 30 Ml Oral.Susp) 30 ml PO DAILY PRN PRN Reason: Constipation Memantine (Memantine Hcl 5 Mg Tablet) 5 mg PO DAILY [facility] Last Admin: 04/14/24 09:30 Dose: 5 mg Metformin HCl (Metformin Hcl 500 Mg Tablet) 500 mg PO BEDTIME [facility] Last Admin: 04/13/24 20:59 Dose: 500 mg Pt Own (Cyclosporine ([Restasis] 1 Drop)) 1 drop EYE-BOTH BID [facility] Last Admin: 04/14/24 09:29 Dose: 1 drop Olanzapine (Olanzapine 2.5 Mg Tablet) 2.5 mg PO Q4H PRN PRN Reason: agitation/acute psychosis Simethicone (Simethicone 80 Mg Tab.Chew) 80 mg PO QIDWMHS PRN PRN Reason: bloating Last Admin: 04/14/24 09:29 Dose: 80 mg Sitagliptin Phosphate (Sitagliptin Phosphate 50 Mg Tablet) 50 mg PO DAILY [facility] Last Admin: 04/14/24 09:32 Dose: 50 mg Trazodone HCl (Trazodone Hcl 50 Mg Tablet) 50 mg PO BEDTIME MRX1 PRN PRN Reason: Insomnia Last Admin: 02/05/24 21:08 Dose: 50 mg Vitamin D (Cholecalciferol (Vitamin D3) 25 Mcg Tablet) 25 mcg PO DAILY [facility] Last Admin: 04/14/24 09:29 Dose: 25 mcg Zolpidem Tartrate (Zolpidem Tartrate 5 Mg Tablet) 5 mg PO BEDTIME [facility] Last Admin: 04/13/24 21:00 Dose: 5 mg Allergies Allergies Allergy/AdvReac Type Severity Reaction Status Date / Time codeine Allergy Unknown Verified 12/07/23 20:27 Assessment & Plan Assessment & Plan (1) Dementia with psychotic disturbance: Status: Acute Code(s): F03.92 - Unspecified dementia, unspecified severity, with psychotic disturbance Plan Pt calm some delusional concern generally cooperative pleasant cont plan of care . Reason for continued inpatient stay Substantial Risk for: inability to function Time Spent With Patient Time: Total time managing care of this patient today ____ minutes.
--- NOTE | 2024-04-14 12:12 | HO.PSYCHPN ---
Subjective Subjective Date of Service: 04/14/24 Reason For Visit: psychosis Interim History: Pt slept through the night. She reports doing well. She denies any concerns. No SI/HI. No overt psychosis or delusions. Review of Systems Review of Systems unremarkable Yes all other systems are reviewed and are negative Constitutional: Reports fatigue, Reports malaise and Reports weakness Reports vertigo and Reports dizziness Cardiovascular: Reports lightheadedness Reports vertigo, Reports dizziness and Reports weakness Endocrine: Reports fatigue Mental Status Exam Mental Status Exam Narrative: Appearance: wearing casual clothing, in bed, no NAD Behavior: cooperative Psychomotor: no retardation or agitation noted Speech: clear, normal rate/rhythm/volume, spontaneous TP: mostly linear TC: feeling okay Mood: fine Affect: congruent, SI: denies HI: denies VH/AH: none Delusions: not reported Insight/judgment: Limited memory/cog: alert, oriented x 3. Diagnostics Vital Signs (24Hr): Vital Signs - 24 hr 04/13/24 20:00 04/14/24 09:20 Temperature 98.4 F 96.6 F L Pulse Rate 69 67 Respiratory Rate 18 18 Blood Pressure 141/63 H 144/65 H Pulse Oximetry 97 98 Oxygen Delivery Method Room Air Room Air BMI result Body Mass Index 28.0 Labs 01/06/24 07:28 04/13/24 07:21 Labs: Laboratory Results - last 48 hr 04/13/24 04/13/24 04/14/24 06:32 07:21 06:19 Creatinine 1.20 Estim Creat Clear Calc 35.6 Estimated GFR 43 POC Glucose 119 H 166 H Medications Medications Current Medications Acetaminophen (Acetaminophen 325 Mg Tablet) 650 mg PO Q6H PRN PRN Reason: Headache/Pain Mild Scale (1-3) Last Admin: 04/14/24 09:30 Dose: 650 mg Al Hydroxide/Mg Hydroxide (Magnesium Hydrox/Alum Hydrox 30 Ml Oral.Susp) 30 ml PO Q6H PRN PRN Reason: Heartburn/Nausea Allopurinol (Allopurinol 100 Mg Tablet) 100 mg PO DAILY [facility] Last Admin: 04/14/24 09:31 Dose: 100 mg Amlodipine Besylate (Amlodipine Besylate 2.5 Mg Tablet) 2.5 mg PO DAILY [facility]; Protocol Last Admin: 04/14/24 09:31 Dose: 2.5 mg Artificial Tears (Artificial Tears 15 Ml Drops) 2 drop EYE-BOTH Q4H PRN PRN Reason: Dry Eyes Last Admin: 04/02/24 20:16 Dose: 2 drop Atorvastatin Calcium (Atorvastatin Calcium 10 Mg Tablet) 10 mg PO BEDTIME [facility] Last Admin: 04/13/24 21:00 Dose: 10 mg Cyclobenzaprine HCl (Cyclobenzaprine Hcl 5 Mg Tablet) 5 mg PO TID PRN PRN Reason: Back spasms Donepezil HCl (Donepezil Hcl 5 Mg Tablet) 5 mg PO BEDTIME [facility] Last Admin: 04/13/24 21:00 Dose: 5 mg Escitalopram Oxalate (Escitalopram Oxalate 10 Mg Tablet) 10 mg PO DAILY [facility] Last Admin: 04/14/24 09:32 Dose: 10 mg Levothyroxine Sodium (Levothyroxine Sodium 88 Mcg Tablet) 88 mcg PO DAILY@0600 [facility] Last Admin: 04/14/24 06:15 Dose: 88 mcg Loperamide HCl (Loperamide Hcl 2 Mg Capsule) 2 mg PO Q4H PRN PRN Reason: Loose Stool Loratadine (Loratadine 10 Mg Tablet) 10 mg PO DAILY PRN PRN Reason: seasonal allergies Last Admin: 04/13/24 21:18 Dose: 10 mg Magnesium Hydroxide (Milk Of Magnesia 30 Ml Oral.Susp) 30 ml PO DAILY PRN PRN Reason: Constipation Memantine (Memantine Hcl 5 Mg Tablet) 5 mg PO DAILY [facility] Last Admin: 04/14/24 09:30 Dose: 5 mg Metformin HCl (Metformin Hcl 500 Mg Tablet) 500 mg PO BEDTIME [facility] Last Admin: 04/13/24 20:59 Dose: 500 mg Pt Own (Cyclosporine ([Restasis] 1 Drop)) 1 drop EYE-BOTH BID [facility] Last Admin: 04/14/24 09:29 Dose: 1 drop Olanzapine (Olanzapine 2.5 Mg Tablet) 2.5 mg PO Q4H PRN PRN Reason: agitation/acute psychosis Simethicone (Simethicone 80 Mg Tab.Chew) 80 mg PO QIDWMHS PRN PRN Reason: bloating Last Admin: 04/14/24 09:29 Dose: 80 mg Sitagliptin Phosphate (Sitagliptin Phosphate 50 Mg Tablet) 50 mg PO DAILY [facility] Last Admin: 04/14/24 09:32 Dose: 50 mg Trazodone HCl (Trazodone Hcl 50 Mg Tablet) 50 mg PO BEDTIME [facility] PRN PRN Reason: Insomnia Last Admin: 02/05/24 21:08 Dose: 50 mg Vitamin D (Cholecalciferol (Vitamin D3) 25 Mcg Tablet) 25 mcg PO DAILY [facility] Last Admin: 04/14/24 09:29 Dose: 25 mcg Zolpidem Tartrate (Zolpidem Tartrate 5 Mg Tablet) 5 mg PO BEDTIME [facility] Last Admin: 04/13/24 21:00 Dose: 5 mg Allergies Allergies Allergy/AdvReac Type Severity Reaction Status Date / Time codeine Allergy Unknown Verified 12/07/23 20:27 Assessment & Plan Assessment & Plan (1) Dementia with psychotic disturbance: Status: Acute Code(s): F03.92 - Unspecified dementia, unspecified severity, with psychotic disturbance Plan Pt calm some delusional concern generally cooperative pleasant cont plan of care . Reason for continued inpatient stay Substantial Risk for: inability to function Time Spent With Patient Time: Total time managing care of this patient today ____ minutes.
[2024-04-14 20:00] VITALS: BP 126/60; PULSE 69; RESP 16; TEMP 36.4; O2SAT 97
[2024-04-14] MEDS: Artificial Tears 15 ML DROPS 2 DROP EYE-BOTH (21:38)
[2024-04-14] MEDS: Zolpidem Tartrate 5 MG TABLET PO (21:39)
[2024-04-14] MEDS: Donepezil HCl 5 MG TABLET PO (21:39)
[2024-04-14] MEDS: Loratadine 10 MG TABLET PO (21:39)
[2024-04-14] MEDS: metFORMIN HCl 500 MG TABLET PO (21:39)
[2024-04-14] MEDS: Atorvastatin Calcium 10 MG TABLET PO (21:39)
[2024-04-15] MEDS: Levothyroxine Sodium 88 MCG TABLET PO (06:18)
[2024-04-15 06:30] LABS: Glucose, Whole Blood 161 mg/dL (60-115)
[2024-04-15 08:23] VITALS: BP 114/66; PULSE 63; RESP 18; TEMP 36.8; O2SAT 98
[2024-04-15] MEDS: Cholecalciferol (Vitamin D3) 25 MCG TABLET PO (08:44)
[2024-04-15] MEDS: Memantine HCl 5 MG TABLET PO (08:44)
[2024-04-15] MEDS: SITagliptin Phosphate 50 MG TABLET PO (08:44)
[2024-04-15] MEDS: Simethicone 80 MG TAB.CHEW PO ×2 (08:44→20:50)
[2024-04-15] MEDS: Escitalopram Oxalate 10 MG TABLET PO (08:44)
[2024-04-15] MEDS: amLODIPine Besylate 2.5 MG TABLET PO (08:44)
[2024-04-15] MEDS: Acetaminophen 325 MG TABLET 650 MG PO ×2 (08:45→20:48)
[2024-04-15] MEDS: CYCLOSPORINE 1 EACH EYE-BOTH ×2 (08:45→20:48)
[2024-04-15] MEDS: allopurinoL 100 MG TABLET PO (08:45)
--- NOTE | 2024-04-15 15:08 | HO.PSYCHPN ---
Subjective Subjective Date of Service: 04/15/24 Reason For Visit: psychosis Subjective Notes: Conditional Voluntary Interim History: The nursing staff reported the patient had been compliant with treatment, she slept 8 hours, no changes in her mental status. The renal social worker reported that we are still waiting for financial clearance. On interview the patient denies new symptoms, waiting for placement Mental Status Exam Mental Status Exam Patient Appearance: Well Grooomed Patient Orientation: Person and Situation Level of Consciousness: Awake Patient Behavior: Appropriate and Cooperative Mood Description: Calm Affect Description: Constricted Patient Cognition Impaired: Yes Ability to Follow Directions: Good Speech Pattern: Clear Hallucinations: None Delusions: Ideas of Reference Thought Process: Distracted and Slowed Thinking Thought Content: positive for Circumstantial Judgement: Fair Diagnostics Vital Signs (24Hr): Vital Signs - 24 hr 04/14/24 20:00 04/15/24 08:23 Temperature 97.6 F 98.2 F Pulse Rate 69 63 Respiratory Rate 16 18 Blood Pressure 126/60 114/66 Pulse Oximetry 97 98 Oxygen Delivery Method Room Air Room Air BMI result Body Mass Index 28.0 Labs 01/06/24 07:28 04/13/24 07:21 Labs: Laboratory Results - last 48 hr 04/14/24 04/15/24 06:19 06:22 POC Glucose 166 H 161 H Medications Medications Current Medications Acetaminophen (Acetaminophen 325 Mg Tablet) 650 mg PO Q6H PRN PRN Reason: Headache/Pain Mild Scale (1-3) Last Admin: 04/15/24 08:45 Dose: 650 mg Al Hydroxide/Mg Hydroxide (Magnesium Hydrox/Alum Hydrox 30 Ml Oral.Susp) 30 ml PO Q6H PRN PRN Reason: Heartburn/Nausea Allopurinol (Allopurinol 100 Mg Tablet) 100 mg PO DAILY [facility] Last Admin: 04/15/24 08:45 Dose: 100 mg Amlodipine Besylate (Amlodipine Besylate 2.5 Mg Tablet) 2.5 mg PO DAILY [facility]; Protocol Last Admin: 04/15/24 08:44 Dose: 2.5 mg Artificial Tears (Artificial Tears 15 Ml Drops) 2 drop EYE-BOTH Q4H PRN PRN Reason: Dry Eyes Last Admin: 04/14/24 21:38 Dose: 2 drop Atorvastatin Calcium (Atorvastatin Calcium 10 Mg Tablet) 10 mg PO BEDTIME [facility] Last Admin: 04/14/24 21:39 Dose: 10 mg Cyclobenzaprine HCl (Cyclobenzaprine Hcl 5 Mg Tablet) 5 mg PO TID PRN PRN Reason: Back spasms Donepezil HCl (Donepezil Hcl 5 Mg Tablet) 5 mg PO BEDTIME [facility] Last Admin: 04/14/24 21:39 Dose: 5 mg Escitalopram Oxalate (Escitalopram Oxalate 10 Mg Tablet) 10 mg PO DAILY [facility] Last Admin: 04/15/24 08:44 Dose: 10 mg Levothyroxine Sodium (Levothyroxine Sodium 88 Mcg Tablet) 88 mcg PO DAILY@0600 [facility] Last Admin: 04/15/24 06:18 Dose: 88 mcg Loperamide HCl (Loperamide Hcl 2 Mg Capsule) 2 mg PO Q4H PRN PRN Reason: Loose Stool Loratadine (Loratadine 10 Mg Tablet) 10 mg PO DAILY PRN PRN Reason: seasonal allergies Last Admin: 04/14/24 21:39 Dose: 10 mg Magnesium Hydroxide (Milk Of Magnesia 30 Ml Oral.Susp) 30 ml PO DAILY PRN PRN Reason: Constipation Memantine (Memantine Hcl 5 Mg Tablet) 5 mg PO DAILY [facility] Last Admin: 04/15/24 08:44 Dose: 5 mg Metformin HCl (Metformin Hcl 500 Mg Tablet) 500 mg PO BEDTIME [facility] Last Admin: 04/14/24 21:39 Dose: 500 mg Pt Own (Cyclosporine ([Restasis] 1 Drop)) 1 drop EYE-BOTH BID [facility] Last Admin: 04/15/24 08:45 Dose: 1 drop Olanzapine (Olanzapine 2.5 Mg Tablet) 2.5 mg PO Q4H PRN PRN Reason: agitation/acute psychosis Simethicone (Simethicone 80 Mg Tab.Chew) 80 mg PO QIDWMHS PRN PRN Reason: bloating Last Admin: 04/15/24 08:44 Dose: 80 mg Sitagliptin Phosphate (Sitagliptin Phosphate 50 Mg Tablet) 50 mg PO DAILY [facility] Last Admin: 04/15/24 08:44 Dose: 50 mg Trazodone HCl (Trazodone Hcl 50 Mg Tablet) 50 mg PO BEDTIME MRX1 PRN PRN Reason: Insomnia Last Admin: 02/05/24 21:08 Dose: 50 mg Vitamin D (Cholecalciferol (Vitamin D3) 25 Mcg Tablet) 25 mcg PO DAILY [facility] Last Admin: 04/15/24 08:44 Dose: 25 mcg Zolpidem Tartrate (Zolpidem Tartrate 5 Mg Tablet) 5 mg PO BEDTIME [facility] Last Admin: 04/14/24 21:39 Dose: 5 mg Allergies Allergies Allergy/AdvReac Type Severity Reaction Status Date / Time codeine Allergy Unknown Verified 12/07/23 20:27 Assessment & Plan Assessment & Plan (1) Dementia with psychotic disturbance: Status: Acute Code(s): F03.92 - Unspecified dementia, unspecified severity, with psychotic disturbance Plan Mrs. Jin is a 83 year-old woman with hx of vascular dementia with delusions of having an affair and some paranoid delusions. Some insight that this may not be the case but pt very much believes and takes action based on delusion despite here reporting that it may not be happening. It is unclear report from [facility] as to suicidal ideation. no indication of imminent harm to self or others, but collateral information is pending from family. May consider antipsychotic. PLAN 1. Continue with same treatment. 2. Waiting for placement. Reason for continued inpatient stay Substantial Risk for: inability to function, rapid decompensation and med/psych decompensation Time Spent With Patient Time: Total time managing care of this patient today __20__ minutes.
[2024-04-15] MEDS: Lidocaine 4 % Patch ADH..PATCH 1 PATCH TRANSDERMA (16:19)
[2024-04-15 20:00] VITALS: BP 132/64; RESP 66; TEMP 36.2; O2SAT 98
[2024-04-15] MEDS: Donepezil HCl 5 MG TABLET PO (20:49)
[2024-04-15] MEDS: metFORMIN HCl 500 MG TABLET PO (20:49)
[2024-04-15] MEDS: Atorvastatin Calcium 10 MG TABLET PO (20:50)
[2024-04-15] MEDS: Zolpidem Tartrate 5 MG TABLET PO (20:50)
[2024-04-15] MEDS: Loratadine 10 MG TABLET PO (20:50)
[2024-04-16] MEDS: Levothyroxine Sodium 88 MCG TABLET PO (06:11)
[2024-04-16 06:49] LABS: Glucose, Whole Blood 125 mg/dL (60-115)
[2024-04-16 09:37] VITALS: BP 166/72; PULSE 70; RESP 16; TEMP 36.4; O2SAT 98
[2024-04-16] MEDS: CYCLOSPORINE 1 EACH EYE-BOTH ×2 (09:43→19:45)
[2024-04-16] MEDS: Acetaminophen 325 MG TABLET 650 MG PO ×2 (09:44→19:45)
[2024-04-16] MEDS: Simethicone 80 MG TAB.CHEW PO ×2 (09:44→19:46)
[2024-04-16] MEDS: Memantine HCl 5 MG TABLET PO (09:44)
[2024-04-16] MEDS: Cholecalciferol (Vitamin D3) 25 MCG TABLET PO (09:44)
[2024-04-16] MEDS: Escitalopram Oxalate 10 MG TABLET PO (09:44)
[2024-04-16] MEDS: allopurinoL 100 MG TABLET PO (09:44)
[2024-04-16] MEDS: amLODIPine Besylate 2.5 MG TABLET PO (09:44)
[2024-04-16] MEDS: SITagliptin Phosphate 50 MG TABLET PO (09:45)
[2024-04-16] MEDS: Lidocaine 4 % Patch ADH..PATCH 1 PATCH TRANSDERMA (09:48)
--- NOTE | 2024-04-16 13:09 | P.PNPSI_ITS ---
Subjective Subjective Date of Service: 04/16/24 Reason For Visit: psychosis Subjective Notes: Conditional Voluntary Interim History: The nursing staff reported no changes in her mental status, compliant with treatment. On interview the patient denies new symptoms, waiting for placement. Mental Status Exam Mental Status Exam Patient Appearance: Appropriate Patient Orientation: Person and Situation Level of Consciousness: Awake and Appropriate Patient Behavior: Guarded and Passive Mood Description: Withdrawn Affect Description: Constricted Patient Cognition Impaired: Yes Ability to Follow Directions: Good Speech Pattern: Clear Hallucinations: None Delusions: Paranoid Ideation and Ideas of Reference Thought Process: Distracted and Slowed Thinking Thought Content: positive for [place] and positive for Poverty of Content Judgement: Fair Diagnostics Vital Signs (24Hr): Vital Signs - 24 hr 04/15/24 20:00 04/16/24 09:37 Temperature 97.1 F 97.6 F Pulse Rate 70 Respiratory Rate 66 H 16 Blood Pressure 132/64 166/72 H Pulse Oximetry 98 98 Oxygen Delivery Method Room Air Room Air BMI result Body Mass Index 28.0 Labs 01/06/24 07:28 04/13/24 07:21 Labs: Laboratory Results - last 48 hr 04/15/24 04/16/24 06:22 06:12 POC Glucose 161 H 125 H Medications Medications Current Medications Acetaminophen (Acetaminophen 325 Mg Tablet) 650 mg PO Q6H PRN PRN Reason: Headache/Pain Mild Scale (1-3) Last Admin: 04/16/24 09:44 Dose: 650 mg Al Hydroxide/Mg Hydroxide (Magnesium Hydrox/Alum Hydrox 30 Ml Oral.Susp) 30 ml PO Q6H PRN PRN Reason: Heartburn/Nausea Allopurinol (Allopurinol 100 Mg Tablet) 100 mg PO DAILY [facility] Last Admin: 04/16/24 09:44 Dose: 100 mg Amlodipine Besylate (Amlodipine Besylate 2.5 Mg Tablet) 2.5 mg PO DAILY [facility]; Protocol Last Admin: 04/16/24 09:44 Dose: 2.5 mg Artificial Tears (Artificial Tears 15 Ml Drops) 2 drop EYE-BOTH Q4H PRN PRN Reason: Dry Eyes Last Admin: 04/14/24 21:38 Dose: 2 drop Atorvastatin Calcium (Atorvastatin Calcium 10 Mg Tablet) 10 mg PO BEDTIME [facility] Last Admin: 04/15/24 20:50 Dose: 10 mg Cyclobenzaprine HCl (Cyclobenzaprine Hcl 5 Mg Tablet) 5 mg PO TID PRN PRN Reason: Back spasms Donepezil HCl (Donepezil Hcl 5 Mg Tablet) 5 mg PO BEDTIME [facility] Last Admin: 04/15/24 20:49 Dose: 5 mg Escitalopram Oxalate (Escitalopram Oxalate 10 Mg Tablet) 10 mg PO DAILY [facility] Last Admin: 04/16/24 09:44 Dose: 10 mg Levothyroxine Sodium (Levothyroxine Sodium 88 Mcg Tablet) 88 mcg PO DAILY@0600 [facility] Last Admin: 04/16/24 06:11 Dose: 88 mcg Lidocaine (Lidocaine 4 % Patch Adh..Patch) 1 patch TRANSDERMA DAILY [facility] Last Admin: 04/16/24 09:48 Dose: 1 patch Loperamide HCl (Loperamide Hcl 2 Mg Capsule) 2 mg PO Q4H PRN PRN Reason: Loose Stool Loratadine (Loratadine 10 Mg Tablet) 10 mg PO DAILY PRN PRN Reason: seasonal allergies Last Admin: 04/15/24 20:50 Dose: 10 mg Magnesium Hydroxide (Milk Of Magnesia 30 Ml Oral.Susp) 30 ml PO DAILY PRN PRN Reason: Constipation Memantine (Memantine Hcl 5 Mg Tablet) 5 mg PO DAILY [facility] Last Admin: 04/16/24 09:44 Dose: 5 mg Metformin HCl (Metformin Hcl 500 Mg Tablet) 500 mg PO BEDTIME [facility] Last Admin: 04/15/24 20:49 Dose: 500 mg Pt Own (Cyclosporine ([Restasis] 1 Drop)) 1 drop EYE-BOTH BID [facility] Last Admin: 04/16/24 09:43 Dose: 1 drop Olanzapine (Olanzapine 2.5 Mg Tablet) 2.5 mg PO Q4H PRN PRN Reason: agitation/acute psychosis Simethicone (Simethicone 80 Mg Tab.Chew) 80 mg PO QIDWMHS PRN PRN Reason: bloating Last Admin: 04/16/24 09:44 Dose: 80 mg Sitagliptin Phosphate (Sitagliptin Phosphate 50 Mg Tablet) 50 mg PO DAILY [facility] Last Admin: 04/16/24 09:45 Dose: 50 mg Trazodone HCl (Trazodone Hcl 50 Mg Tablet) 50 mg PO BEDTIME MRX1 PRN PRN Reason: Insomnia Last Admin: 02/05/24 21:08 Dose: 50 mg Vitamin D (Cholecalciferol (Vitamin D3) 25 Mcg Tablet) 25 mcg PO DAILY [facility] Last Admin: 04/16/24 09:44 Dose: 25 mcg Zolpidem Tartrate (Zolpidem Tartrate 5 Mg Tablet) 5 mg PO BEDTIME [facility] Last Admin: 04/15/24 20:50 Dose: 5 mg Allergies Allergies Allergy/AdvReac Type Severity Reaction Status Date / Time codeine Allergy Unknown Verified 12/07/23 20:27 Assessment & Plan Assessment & Plan (1) Dementia with psychotic disturbance: Status: Acute Code(s): F03.92 - Unspecified dementia, unspecified severity, with psychotic disturbance Plan Mrs. Jin is a 83 year-old woman with hx of vascular dementia with delusions of having an affair and some paranoid delusions. Some insight that this may not be the case but pt very much believes and takes action based on delusion despite here reporting that it may not be happening. It is unclear report from [facility] as to suicidal ideation. no indication of imminent harm to self or others, but collateral information is pending from family. May consider antipsychotic. PLAN 1. Continue with same treatment. 2. Waiting for placement. Reason for continued inpatient stay Substantial Risk for: inability to function, rapid decompensation and med/psych decompensation Time Spent With Patient Time: Total time managing care of this patient today __20__ minutes.
[2024-04-16 19:43] VITALS: BP 153/69; PULSE 66; RESP 16; TEMP 36.4; O2SAT 99
[2024-04-16] MEDS: Atorvastatin Calcium 10 MG TABLET PO (19:46)
[2024-04-16] MEDS: metFORMIN HCl 500 MG TABLET PO (19:46)
[2024-04-16] MEDS: Donepezil HCl 5 MG TABLET PO (19:46)
[2024-04-16] MEDS: Zolpidem Tartrate 5 MG TABLET PO (19:46)
[2024-04-16] MEDS: Loratadine 10 MG TABLET PO (21:33)
[2024-04-17] MEDS: Levothyroxine Sodium 88 MCG TABLET PO (05:32)
[2024-04-17 06:12] LABS: Glucose, Whole Blood 118 mg/dL (60-115)
[2024-04-17 08:00] VITALS: BP 142/68; PULSE 74; RESP 16; TEMP 36.1; O2SAT 98
[2024-04-17 09:48] VITALS: BP 142/68
[2024-04-17] MEDS: amLODIPine Besylate 2.5 MG TABLET PO (09:48)
[2024-04-17] MEDS: SITagliptin Phosphate 50 MG TABLET PO (09:48)
[2024-04-17] MEDS: Cholecalciferol (Vitamin D3) 25 MCG TABLET PO (09:49)
[2024-04-17] MEDS: Escitalopram Oxalate 10 MG TABLET PO (09:49)
[2024-04-17] MEDS: Acetaminophen 325 MG TABLET 650 MG PO ×2 (09:49→20:04)
[2024-04-17] MEDS: allopurinoL 100 MG TABLET PO (09:49)
[2024-04-17] MEDS: Memantine HCl 5 MG TABLET PO (09:50)
[2024-04-17] MEDS: CYCLOSPORINE 1 EACH EYE-BOTH ×2 (09:54→20:07)
[2024-04-17] MEDS: Simethicone 80 MG TAB.CHEW PO ×2 (11:14→20:04)
--- NOTE | 2024-04-17 12:41 | P.PNPSI_ITS ---
Subjective Subjective Date of Service: 04/17/24 Reason For Visit: psychosis Interim History: Patient was seen and discussed in rounds today. Records and plans were reviewed. No changes in her current status. She is stable and awaiting placement. Review of Systems Review of Systems Yes all other systems are reviewed and are negative Mental Status Exam Mental Status Exam Patient Appearance: Appropriate Patient Orientation: Person and Situation Level of Consciousness: Awake and Appropriate Patient Behavior: Guarded and Passive Mood Description: Withdrawn Affect Description: Constricted Patient Cognition Impaired: Yes Ability to Follow Directions: Good Speech Pattern: Clear Hallucinations: None Delusions: Paranoid Ideation and Ideas of Reference Thought Process: Distracted and Slowed Thinking Thought Content: positive for [place] and positive for Poverty of Content Judgement: Fair Diagnostics Vital Signs (24Hr): Vital Signs - 24 hr 04/16/24 19:43 04/17/24 08:00 04/17/24 09:48 Temperature 97.6 F 96.9 F Pulse Rate 66 74 Respiratory Rate 16 16 Blood Pressure 153/69 H 142/68 H 142/68 H Pulse Oximetry 99 98 Oxygen Delivery Method Room Air Room Air BMI result Body Mass Index 28.0 Labs 01/06/24 07:28 04/13/24 07:21 Labs: Laboratory Results - last 48 hr 04/16/24 04/17/24 06:12 05:34 POC Glucose 125 H 118 H Medications Medications Current Medications Acetaminophen (Acetaminophen 325 Mg Tablet) 650 mg PO Q6H PRN PRN Reason: Headache/Pain Mild Scale (1-3) Last Admin: 04/17/24 09:49 Dose: 650 mg Al Hydroxide/Mg Hydroxide (Magnesium Hydrox/Alum Hydrox 30 Ml Oral.Susp) 30 ml PO Q6H PRN PRN Reason: Heartburn/Nausea Allopurinol (Allopurinol 100 Mg Tablet) 100 mg PO DAILY [facility] Last Admin: 04/17/24 09:49 Dose: 100 mg Amlodipine Besylate (Amlodipine Besylate 2.5 Mg Tablet) 2.5 mg PO DAILY [facility]; Protocol Last Admin: 04/17/24 09:48 Dose: 2.5 mg Artificial Tears (Artificial Tears 15 Ml Drops) 2 drop EYE-BOTH Q4H PRN PRN Reason: Dry Eyes Last Admin: 04/14/24 21:38 Dose: 2 drop Atorvastatin Calcium (Atorvastatin Calcium 10 Mg Tablet) 10 mg PO BEDTIME [facility] Last Admin: 04/16/24 19:46 Dose: 10 mg Cyclobenzaprine HCl (Cyclobenzaprine Hcl 5 Mg Tablet) 5 mg PO TID PRN PRN Reason: Back spasms Donepezil HCl (Donepezil Hcl 5 Mg Tablet) 5 mg PO BEDTIME [facility] Last Admin: 04/16/24 19:46 Dose: 5 mg Escitalopram Oxalate (Escitalopram Oxalate 10 Mg Tablet) 10 mg PO DAILY [facility] Last Admin: 04/17/24 09:49 Dose: 10 mg Levothyroxine Sodium (Levothyroxine Sodium 88 Mcg Tablet) 88 mcg PO DAILY@0600 [facility] Last Admin: 04/17/24 05:32 Dose: 88 mcg Lidocaine (Lidocaine 4 % Patch Adh..Patch) 1 patch TRANSDERMA DAILY [facility] Last Admin: 04/17/24 09:50 Dose: Not Given Loperamide HCl (Loperamide Hcl 2 Mg Capsule) 2 mg PO Q4H PRN PRN Reason: Loose Stool Loratadine (Loratadine 10 Mg Tablet) 10 mg PO DAILY PRN PRN Reason: seasonal allergies Last Admin: 04/16/24 21:33 Dose: 10 mg Magnesium Hydroxide (Milk Of Magnesia 30 Ml Oral.Susp) 30 ml PO DAILY PRN PRN Reason: Constipation Memantine (Memantine Hcl 5 Mg Tablet) 5 mg PO DAILY [facility] Last Admin: 04/17/24 09:50 Dose: 5 mg Metformin HCl (Metformin Hcl 500 Mg Tablet) 500 mg PO BEDTIME [facility] Last Admin: 04/16/24 19:46 Dose: 500 mg Pt Own (Cyclosporine ([Restasis] 1 Drop)) 1 drop EYE-BOTH BID [facility] Last Admin: 04/17/24 09:54 Dose: 1 drop Olanzapine (Olanzapine 2.5 Mg Tablet) 2.5 mg PO Q4H PRN PRN Reason: agitation/acute psychosis Simethicone (Simethicone 80 Mg Tab.Chew) 80 mg PO QIDWMHS PRN PRN Reason: bloating Last Admin: 04/17/24 11:14 Dose: 80 mg Sitagliptin Phosphate (Sitagliptin Phosphate 50 Mg Tablet) 50 mg PO DAILY [facility] Last Admin: 04/17/24 09:48 Dose: 50 mg Trazodone HCl (Trazodone Hcl 50 Mg Tablet) 50 mg PO BEDTIME MRX1 PRN PRN Reason: Insomnia Last Admin: 02/05/24 21:08 Dose: 50 mg Vitamin D (Cholecalciferol (Vitamin D3) 25 Mcg Tablet) 25 mcg PO DAILY [facility] Last Admin: 04/17/24 09:49 Dose: 25 mcg Allergies Allergies Allergy/AdvReac Type Severity Reaction Status Date / Time codeine Allergy Unknown Verified 12/07/23 20:27 Assessment & Plan Assessment & Plan (1) Dementia with psychotic disturbance: Status: Acute Code(s): F03.92 - Unspecified dementia, unspecified severity, with psychotic disturbance Plan Mrs. Jin is a 83 year-old woman with hx of vascular dementia with delusions of having an affair and some paranoid delusions. Some insight that this may not be the case but pt very much believes and takes action based on delusion despite here reporting that it may not be happening. It is unclear report from [facility] as to suicidal ideation. no indication of imminent harm to self or others, but collateral information is pending from family. May consider antipsychotic. PLAN 1. Continue with same treatment. 2. Waiting for placement. 04/17: Continue current regimen and plans Reason for continued inpatient stay Substantial Risk for: med/psych decompensation Time Spent With Patient Time: Total time managing care of this patient today ____ minutes.
[2024-04-17 20:00] VITALS: BP 166/70; PULSE 69; RESP 16; TEMP 36.2; O2SAT 100
[2024-04-17] MEDS: metFORMIN HCl 500 MG TABLET PO (20:04)
[2024-04-17] MEDS: Zolpidem Tartrate 5 MG TABLET PO (20:04)
[2024-04-17] MEDS: Donepezil HCl 5 MG TABLET PO (20:05)
[2024-04-17] MEDS: Loratadine 10 MG TABLET PO (20:05)
[2024-04-17] MEDS: Atorvastatin Calcium 10 MG TABLET PO (20:05)
[2024-04-18] MEDS: Levothyroxine Sodium 88 MCG TABLET PO (05:32)
[2024-04-18 06:08] LABS: Glucose, Whole Blood 141 mg/dL (60-115)
[2024-04-18 07:00] VITALS: BMI 25.8
[2024-04-18 08:24] VITALS: BP 126/57; PULSE 73; RESP 17; TEMP 36.3; O2SAT 98
[2024-04-18] MEDS: amLODIPine Besylate 2.5 MG TABLET PO (08:25)
[2024-04-18] MEDS: SITagliptin Phosphate 50 MG TABLET PO (08:25)
[2024-04-18] MEDS: allopurinoL 100 MG TABLET PO (08:26)
[2024-04-18] MEDS: Cholecalciferol (Vitamin D3) 25 MCG TABLET PO (08:26)
[2024-04-18] MEDS: Simethicone 80 MG TAB.CHEW PO ×2 (08:26→20:34)
[2024-04-18] MEDS: Acetaminophen 325 MG TABLET 650 MG PO ×2 (08:26→20:34)
[2024-04-18] MEDS: Memantine HCl 5 MG TABLET PO (08:26)
[2024-04-18] MEDS: Escitalopram Oxalate 10 MG TABLET PO (08:26)
[2024-04-18] MEDS: CYCLOSPORINE 1 EACH EYE-BOTH ×2 (08:28→20:34)
--- NOTE | 2024-04-18 16:17 | P.PNPSI_ITS ---
Subjective Subjective Date of Service: 04/18/24 Reason For Visit: psychosis Subjective Notes: Conditional Voluntary Interim History: The nursing staff reported no changes in her mental status compliant with treatment. On interview the patient denies new symptoms, waiting for placement. Mental Status Exam Mental Status Exam Patient Appearance: Appropriate Patient Orientation: Person and Situation Level of Consciousness: Awake and Appropriate Patient Behavior: Guarded and Passive Mood Description: Withdrawn Affect Description: Constricted Patient Cognition Impaired: Yes Ability to Follow Directions: Good Speech Pattern: Clear Hallucinations: None Delusions: Paranoid Ideation and Ideas of Reference Thought Process: Distracted and Slowed Thinking Thought Content: positive for Shirley and positive for Circumstantial Judgement: Fair Diagnostics Vital Signs (24Hr): Vital Signs - 24 hr 04/17/24 20:00 04/18/24 08:24 Temperature 97.2 F 97.3 F Pulse Rate 69 73 Respiratory Rate 16 17 Blood Pressure 166/70 H 126/57 L Pulse Oximetry 100 98 Oxygen Delivery Method Room Air Room Air BMI result Body Mass Index 25.8 Labs 01/06/24 07:28 04/13/24 07:21 Labs: Laboratory Results - last 48 hr 04/17/24 04/18/24 05:34 05:36 POC Glucose 118 H 141 H Medications Medications Current Medications Acetaminophen (Acetaminophen 325 Mg Tablet) 650 mg PO Q6H PRN PRN Reason: Headache/Pain Mild Scale (1-3) Last Admin: 04/18/24 08:26 Dose: 650 mg Al Hydroxide/Mg Hydroxide (Magnesium Hydrox/Alum Hydrox 30 Ml Oral.Susp) 30 ml PO Q6H PRN PRN Reason: Heartburn/Nausea Allopurinol (Allopurinol 100 Mg Tablet) 100 mg PO DAILY [facility] Last Admin: 04/18/24 08:26 Dose: 100 mg Amlodipine Besylate (Amlodipine Besylate 2.5 Mg Tablet) 2.5 mg PO DAILY [facility]; Protocol Last Admin: 04/18/24 08:25 Dose: 2.5 mg Artificial Tears (Artificial Tears 15 Ml Drops) 2 drop EYE-BOTH Q4H PRN PRN Reason: Dry Eyes Last Admin: 04/14/24 21:38 Dose: 2 drop Atorvastatin Calcium (Atorvastatin Calcium 10 Mg Tablet) 10 mg PO BEDTIME [facility] Last Admin: 04/17/24 20:05 Dose: 10 mg Cyclobenzaprine HCl (Cyclobenzaprine Hcl 5 Mg Tablet) 5 mg PO TID PRN PRN Reason: Back spasms Donepezil HCl (Donepezil Hcl 5 Mg Tablet) 5 mg PO BEDTIME [facility] Last Admin: 04/17/24 20:05 Dose: 5 mg Escitalopram Oxalate (Escitalopram Oxalate 10 Mg Tablet) 10 mg PO DAILY [facility] Last Admin: 04/18/24 08:26 Dose: 10 mg Levothyroxine Sodium (Levothyroxine Sodium 88 Mcg Tablet) 88 mcg PO DAILY@0600 [facility] Last Admin: 04/18/24 05:32 Dose: 88 mcg Lidocaine (Lidocaine 4 % Patch Adh..Patch) 1 patch TRANSDERMA DAILY [facility] Last Admin: 04/18/24 08:28 Dose: Not Given Loperamide HCl (Loperamide Hcl 2 Mg Capsule) 2 mg PO Q4H PRN PRN Reason: Loose Stool Loratadine (Loratadine 10 Mg Tablet) 10 mg PO DAILY PRN PRN Reason: seasonal allergies Last Admin: 04/17/24 20:05 Dose: 10 mg Magnesium Hydroxide (Milk Of Magnesia 30 Ml Oral.Susp) 30 ml PO DAILY PRN PRN Reason: Constipation Memantine (Memantine Hcl 5 Mg Tablet) 5 mg PO DAILY [facility] Last Admin: 04/18/24 08:26 Dose: 5 mg Metformin HCl (Metformin Hcl 500 Mg Tablet) 500 mg PO BEDTIME [facility] Last Admin: 04/17/24 20:04 Dose: 500 mg Pt Own (Cyclosporine ([Restasis] 1 Drop)) 1 drop EYE-BOTH BID [facility] Last Admin: 04/18/24 08:28 Dose: 1 drop Olanzapine (Olanzapine 2.5 Mg Tablet) 2.5 mg PO Q4H PRN PRN Reason: agitation/acute psychosis Simethicone (Simethicone 80 Mg Tab.Chew) 80 mg PO QIDWMHS PRN PRN Reason: bloating Last Admin: 04/18/24 08:26 Dose: 80 mg Sitagliptin Phosphate (Sitagliptin Phosphate 50 Mg Tablet) 50 mg PO DAILY [facility] Last Admin: 04/18/24 08:25 Dose: 50 mg Trazodone HCl (Trazodone Hcl 50 Mg Tablet) 50 mg PO BEDTIME [facility] PRN PRN Reason: Insomnia Last Admin: 02/05/24 21:08 Dose: 50 mg Vitamin D (Cholecalciferol (Vitamin D3) 25 Mcg Tablet) 25 mcg PO DAILY [facility] Last Admin: 04/18/24 08:26 Dose: 25 mcg Zolpidem Tartrate (Zolpidem Tartrate 5 Mg Tablet) 5 mg PO BEDTIME [facility] Last Admin: 04/17/24 20:04 Dose: 5 mg Allergies Allergies Allergy/AdvReac Type Severity Reaction Status Date / Time codeine Allergy Unknown Verified 12/07/23 20:27 Assessment & Plan Assessment & Plan (1) Dementia with psychotic disturbance: Status: Acute Code(s): F03.92 - Unspecified dementia, unspecified severity, with psychotic disturbance Plan Mrs. Jin is a 83 year-old woman with hx of vascular dementia with delusions of having an affair and some paranoid delusions. Some insight that this may not be the case but pt very much believes and takes action based on delusion despite here reporting that it may not be happening. It is unclear report from [facility] as to suicidal ideation. no indication of imminent harm to self or others, but collateral information is pending from family. May consider antipsychotic. PLAN 1. Continue with same treatment. 2. Waiting for placement. 04/17: Continue current regimen and plans Reason for continued inpatient stay Substantial Risk for: inability to function, rapid decompensation and med/psych decompensation Time Spent With Patient Time: Total time managing care of this patient today __20__ minutes.
[2024-04-18 20:00] VITALS: BP 127/60; PULSE 67; RESP 18; TEMP 36.8; O2SAT 99
[2024-04-18] MEDS: metFORMIN HCl 500 MG TABLET PO (20:34)
[2024-04-18] MEDS: Zolpidem Tartrate 5 MG TABLET PO (20:34)
[2024-04-18] MEDS: Loratadine 10 MG TABLET PO (20:34)
[2024-04-18] MEDS: Donepezil HCl 5 MG TABLET PO (20:34)
[2024-04-18] MEDS: Atorvastatin Calcium 10 MG TABLET PO (20:34)
[2024-04-19] MEDS: Levothyroxine Sodium 88 MCG TABLET PO (05:56)
[2024-04-19 08:26] VITALS: BP 119/62; PULSE 64; RESP 18; TEMP 36; O2SAT 97
[2024-04-19] MEDS: amLODIPine Besylate 2.5 MG TABLET PO (08:27)
[2024-04-19] MEDS: SITagliptin Phosphate 50 MG TABLET PO (08:27)
[2024-04-19] MEDS: Escitalopram Oxalate 10 MG TABLET PO (08:27)
[2024-04-19] MEDS: allopurinoL 100 MG TABLET PO (08:27)
[2024-04-19] MEDS: Memantine HCl 5 MG TABLET PO (08:27)
[2024-04-19] MEDS: Acetaminophen 325 MG TABLET 650 MG PO ×2 (08:28→20:09)
[2024-04-19] MEDS: Cholecalciferol (Vitamin D3) 25 MCG TABLET PO (08:28)
[2024-04-19] MEDS: Simethicone 80 MG TAB.CHEW PO ×2 (08:28→20:10)
[2024-04-19] MEDS: CYCLOSPORINE 1 EACH EYE-BOTH ×2 (09:00→20:09)
--- NOTE | 2024-04-19 09:12 | P.PNPSI_ITS ---
Subjective Subjective Date of Service: 04/19/24 Reason For Visit: psychosis Subjective Notes: Conditional Voluntary Interim History: Pt sleeping through the night. No behavioral concerns. She denies any physical concerns, social with select peers when in the milieu. No behavioral concerns. Review of Systems Review of Systems unremarkable Yes all other systems are reviewed and are negative Constitutional: Reports fatigue, Reports malaise and Reports weakness Reports vertigo and Reports dizziness Cardiovascular: Reports lightheadedness Reports vertigo, Reports dizziness and Reports weakness Endocrine: Reports fatigue Mental Status Exam Mental Status Exam Narrative: Appearance: wearing casual clothing, in bed, no NAD Behavior: cooperative Psychomotor: no retardation or agitation noted Speech: clear, normal rate/rhythm/volume, spontaneous TP: mostly linear TC: feeling okay Mood: fine Affect: congruent, SI: denies HI: denies VH/AH: none Delusions: not reported Insight/judgment: Limited memory/cog: alert, oriented x 3. Diagnostics Vital Signs (24Hr): Vital Signs - 24 hr 04/18/24 20:00 04/19/24 08:26 Temperature 98.2 F 96.8 F Pulse Rate 67 64 Respiratory Rate 18 18 Blood Pressure 127/60 119/62 Pulse Oximetry 99 97 Oxygen Delivery Method Room Air Room Air BMI result Body Mass Index 25.8 Labs 01/06/24 07:28 04/13/24 07:21 Labs: Laboratory Results - last 48 hr 04/18/24 05:36 POC Glucose 141 H Medications Medications Current Medications Acetaminophen (Acetaminophen 325 Mg Tablet) 650 mg PO Q6H PRN PRN Reason: Headache/Pain Mild Scale (1-3) Last Admin: 04/19/24 08:28 Dose: 650 mg Al Hydroxide/Mg Hydroxide (Magnesium Hydrox/Alum Hydrox 30 Ml Oral.Susp) 30 ml PO Q6H PRN PRN Reason: Heartburn/Nausea Allopurinol (Allopurinol 100 Mg Tablet) 100 mg PO DAILY [facility] Last Admin: 04/19/24 08:27 Dose: 100 mg Amlodipine Besylate (Amlodipine Besylate 2.5 Mg Tablet) 2.5 mg PO DAILY [facility]; Protocol Last Admin: 04/19/24 08:27 Dose: 2.5 mg Artificial Tears (Artificial Tears 15 Ml Drops) 2 drop EYE-BOTH Q4H PRN PRN Reason: Dry Eyes Last Admin: 04/14/24 21:38 Dose: 2 drop Atorvastatin Calcium (Atorvastatin Calcium 10 Mg Tablet) 10 mg PO BEDTIME [facility] Last Admin: 04/18/24 20:34 Dose: 10 mg Cyclobenzaprine HCl (Cyclobenzaprine Hcl 5 Mg Tablet) 5 mg PO TID PRN PRN Reason: Back spasms Donepezil HCl (Donepezil Hcl 5 Mg Tablet) 5 mg PO BEDTIME [facility] Last Admin: 04/18/24 20:34 Dose: 5 mg Escitalopram Oxalate (Escitalopram Oxalate 10 Mg Tablet) 10 mg PO DAILY [facility] Last Admin: 04/19/24 08:27 Dose: 10 mg Levothyroxine Sodium (Levothyroxine Sodium 88 Mcg Tablet) 88 mcg PO DAILY@0600 [facility] Last Admin: 04/19/24 05:56 Dose: 88 mcg Lidocaine (Lidocaine 4 % Patch Adh..Patch) 1 patch TRANSDERMA DAILY [facility] Last Admin: 04/19/24 08:28 Dose: Not Given Loperamide HCl (Loperamide Hcl 2 Mg Capsule) 2 mg PO Q4H PRN PRN Reason: Loose Stool Loratadine (Loratadine 10 Mg Tablet) 10 mg PO DAILY PRN PRN Reason: seasonal allergies Last Admin: 04/18/24 20:34 Dose: 10 mg Magnesium Hydroxide (Milk Of Magnesia 30 Ml Oral.Susp) 30 ml PO DAILY PRN PRN Reason: Constipation Memantine (Memantine Hcl 5 Mg Tablet) 5 mg PO DAILY [facility] Last Admin: 04/19/24 08:27 Dose: 5 mg Metformin HCl (Metformin Hcl 500 Mg Tablet) 500 mg PO BEDTIME [facility] Last Admin: 04/18/24 20:34 Dose: 500 mg Pt Own (Cyclosporine ([Restasis] 1 Drop)) 1 drop EYE-BOTH BID [facility] Last Admin: 04/19/24 09:00 Dose: 1 drop Olanzapine (Olanzapine 2.5 Mg Tablet) 2.5 mg PO Q4H PRN PRN Reason: agitation/acute psychosis Simethicone (Simethicone 80 Mg Tab.Chew) 80 mg PO QIDWMHS PRN PRN Reason: bloating Last Admin: 04/19/24 08:28 Dose: 80 mg Sitagliptin Phosphate (Sitagliptin Phosphate 50 Mg Tablet) 50 mg PO DAILY [facility] Last Admin: 04/19/24 08:27 Dose: 50 mg Trazodone HCl (Trazodone Hcl 50 Mg Tablet) 50 mg PO BEDTIME [facility] PRN PRN Reason: Insomnia Last Admin: 02/05/24 21:08 Dose: 50 mg Vitamin D (Cholecalciferol (Vitamin D3) 25 Mcg Tablet) 25 mcg PO DAILY [facility] Last Admin: 04/19/24 08:28 Dose: 25 mcg Zolpidem Tartrate (Zolpidem Tartrate 5 Mg Tablet) 5 mg PO BEDTIME [facility] Last Admin: 04/18/24 20:34 Dose: 5 mg Allergies Allergies Allergy/AdvReac Type Severity Reaction Status Date / Time codeine Allergy Unknown Verified 12/07/23 20:27 Assessment & Plan Assessment & Plan (1) Dementia with psychotic disturbance: Status: Acute Code(s): F03.92 - Unspecified dementia, unspecified severity, with psychotic disturbance Plan Mrs. Jin is a 83 year-old woman with hx of vascular dementia with delusions of having an affair and some paranoid delusions. Some insight that this may not be the case but pt very much believes and takes action based on delusion despite here reporting that it may not be happening. It is unclear report from [facility] as to suicidal ideation. no indication of imminent harm to self or others, but collateral information is pending from family. May consider antipsychotic. PLAN 1. Continue with same treatment. 2. Waiting for placement. 04/17: Continue current regimen and plans Reason for continued inpatient stay Substantial Risk for: inability to function Time Spent With Patient Time: Total time managing care of this patient today ____ minutes.
[2024-04-19 20:00] VITALS: BP 142/58; PULSE 60; RESP 16; TEMP 36.6; O2SAT 98
[2024-04-19] MEDS: Zolpidem Tartrate 5 MG TABLET PO (20:09)
[2024-04-19] MEDS: metFORMIN HCl 500 MG TABLET PO (20:09)
[2024-04-19] MEDS: Loratadine 10 MG TABLET PO (20:10)
[2024-04-19] MEDS: Atorvastatin Calcium 10 MG TABLET PO (20:10)
[2024-04-19] MEDS: Donepezil HCl 5 MG TABLET PO (20:10)
[2024-04-20] MEDS: Levothyroxine Sodium 88 MCG TABLET PO (05:45)
[2024-04-20 05:57] LABS: Glucose, Whole Blood 149 mg/dL (60-115)
[2024-04-20 08:00] VITALS: BP 138/66; PULSE 68; RESP 18; TEMP 36.4; O2SAT 97
[2024-04-20 08:04] LABS: Creatinine Clr Calc Pharmacy 33.2; Estimated Glomerular Filt Rate 41
[2024-04-20 09:13] VITALS: BP 138/66
[2024-04-20] MEDS: SITagliptin Phosphate 50 MG TABLET PO (09:13)
[2024-04-20] MEDS: Simethicone 80 MG TAB.CHEW PO ×2 (09:13→19:41)
[2024-04-20] MEDS: amLODIPine Besylate 2.5 MG TABLET PO (09:13)
[2024-04-20] MEDS: Memantine HCl 5 MG TABLET PO (09:14)
[2024-04-20] MEDS: Cholecalciferol (Vitamin D3) 25 MCG TABLET PO (09:14)
[2024-04-20] MEDS: Acetaminophen 325 MG TABLET 650 MG PO ×2 (09:14→19:40)
[2024-04-20] MEDS: allopurinoL 100 MG TABLET PO (09:14)
[2024-04-20] MEDS: Escitalopram Oxalate 10 MG TABLET PO (09:14)
[2024-04-20] MEDS: CYCLOSPORINE 1 EACH EYE-BOTH ×2 (09:18→19:41)
--- NOTE | 2024-04-20 10:46 | P.PNPSI_ITS ---
Subjective Subjective Date of Service: 04/20/24 Reason For Visit: psychosis Interim History: Patient reports she has no complaints and waiting for her placement at the [facility] soon. She is eager to leave. Denies SI/HI/AVH. Mood is stable. Pt sleeping through the night. No behavioral concerns. She denies any physical concerns, social with select peers when in the milieu. Review of Systems Review of Systems unremarkable Yes all other systems are reviewed and are negative Constitutional: Reports fatigue, Reports malaise and Reports weakness Reports vertigo and Reports dizziness Cardiovascular: Reports lightheadedness Reports vertigo, Reports dizziness and Reports weakness Endocrine: Reports fatigue Mental Status Exam Mental Status Exam Narrative: Appearance: wearing casual clothing, in bed, no NAD Behavior: cooperative Psychomotor: no retardation or agitation noted Speech: clear, normal rate/rhythm/volume, spontaneous TP: mostly linear TC: feeling okay Mood: fine Affect: congruent, SI: denies HI: denies VH/AH: none Delusions: not reported Insight/judgment: Limited memory/cog: alert, oriented x 3. Patient Appearance: Appropriate Patient Orientation: Person and Situation Level of Consciousness: Awake and Appropriate Patient Behavior: Guarded and Passive Mood Description: Withdrawn Affect Description: Constricted Patient Cognition Impaired: Yes Ability to Follow Directions: Good Speech Pattern: Clear Memory Description: Intact Diagnostics Vital Signs (24Hr): Vital Signs - 24 hr 04/19/24 20:00 04/20/24 08:00 04/20/24 09:13 Temperature 97.8 F 97.6 F Pulse Rate 60 68 Respiratory Rate 16 18 Blood Pressure 142/58 H 138/66 138/66 Pulse Oximetry 98 97 Oxygen Delivery Method Room Air Room Air BMI result Body Mass Index 25.8 Labs 01/06/24 07:28 04/20/24 07:33 Labs: Laboratory Results - last 48 hr 04/20/24 04/20/24 05:47 07:33 Hold Purple Top SEE NOTE Creatinine 1.24 Estim Creat Clear Calc 33.2 Estimated GFR 41 POC Glucose 149 H Medications Medications Current Medications Acetaminophen (Acetaminophen 325 Mg Tablet) 650 mg PO Q6H PRN PRN Reason: Headache/Pain Mild Scale (1-3) Last Admin: 04/20/24 09:14 Dose: 650 mg Al Hydroxide/Mg Hydroxide (Magnesium Hydrox/Alum Hydrox 30 Ml Oral.Susp) 30 ml PO Q6H PRN PRN Reason: Heartburn/Nausea Allopurinol (Allopurinol 100 Mg Tablet) 100 mg PO DAILY [facility] Last Admin: 04/20/24 09:14 Dose: 100 mg Amlodipine Besylate (Amlodipine Besylate 2.5 Mg Tablet) 2.5 mg PO DAILY [facility]; Protocol Last Admin: 04/20/24 09:13 Dose: 2.5 mg Artificial Tears (Artificial Tears 15 Ml Drops) 2 drop EYE-BOTH Q4H PRN PRN Reason: Dry Eyes Last Admin: 04/14/24 21:38 Dose: 2 drop Atorvastatin Calcium (Atorvastatin Calcium 10 Mg Tablet) 10 mg PO BEDTIME [facility] Last Admin: 04/19/24 20:10 Dose: 10 mg Cyclobenzaprine HCl (Cyclobenzaprine Hcl 5 Mg Tablet) 5 mg PO TID PRN PRN Reason: Back spasms Donepezil HCl (Donepezil Hcl 5 Mg Tablet) 5 mg PO BEDTIME [facility] Last Admin: 04/19/24 20:10 Dose: 5 mg Escitalopram Oxalate (Escitalopram Oxalate 10 Mg Tablet) 10 mg PO DAILY [facility] Last Admin: 04/20/24 09:14 Dose: 10 mg Levothyroxine Sodium (Levothyroxine Sodium 88 Mcg Tablet) 88 mcg PO DAILY@0600 [facility] Last Admin: 04/20/24 05:45 Dose: 88 mcg Lidocaine (Lidocaine 4 % Patch Adh..Patch) 1 patch TRANSDERMA DAILY [facility] Last Admin: 04/20/24 09:18 Dose: Not Given Loperamide HCl (Loperamide Hcl 2 Mg Capsule) 2 mg PO Q4H PRN PRN Reason: Loose Stool Loratadine (Loratadine 10 Mg Tablet) 10 mg PO DAILY PRN PRN Reason: seasonal allergies Last Admin: 04/19/24 20:10 Dose: 10 mg Magnesium Hydroxide (Milk Of Magnesia 30 Ml Oral.Susp) 30 ml PO DAILY PRN PRN Reason: Constipation Memantine (Memantine Hcl 5 Mg Tablet) 5 mg PO DAILY [facility] Last Admin: 04/20/24 09:14 Dose: 5 mg Metformin HCl (Metformin Hcl 500 Mg Tablet) 500 mg PO BEDTIME [facility] Last Admin: 04/19/24 20:09 Dose: 500 mg Pt Own (Cyclosporine ([Restasis] 1 Drop)) 1 drop EYE-BOTH BID [facility] Last Admin: 04/20/24 09:18 Dose: 1 drop Olanzapine (Olanzapine 2.5 Mg Tablet) 2.5 mg PO Q4H PRN PRN Reason: agitation/acute psychosis Simethicone (Simethicone 80 Mg Tab.Chew) 80 mg PO QIDWMHS PRN PRN Reason: bloating Last Admin: 04/20/24 09:13 Dose: 80 mg Sitagliptin Phosphate (Sitagliptin Phosphate 50 Mg Tablet) 50 mg PO DAILY [facility] Last Admin: 04/20/24 09:13 Dose: 50 mg Trazodone HCl (Trazodone Hcl 50 Mg Tablet) 50 mg PO BEDTIME [facility]X1 PRN PRN Reason: Insomnia Last Admin: 02/05/24 21:08 Dose: 50 mg Vitamin D (Cholecalciferol (Vitamin D3) 25 Mcg Tablet) 25 mcg PO DAILY [facility] Last Admin: 04/20/24 09:14 Dose: 25 mcg Zolpidem Tartrate (Zolpidem Tartrate 5 Mg Tablet) 5 mg PO BEDTIME [facility] Last Admin: 04/19/24 20:09 Dose: 5 mg Allergies Allergies Allergy/AdvReac Type Severity Reaction Status Date / Time codeine Allergy Unknown Verified 12/07/23 20:27 Assessment & Plan Assessment & Plan (1) Dementia with psychotic disturbance: Status: Acute Code(s): F03.92 - Unspecified dementia, unspecified severity, with psychotic disturbance Plan Mrs. Jin is a 83 year-old woman with hx of vascular dementia with delusions of having an affair and some paranoid delusions. Some insight that this may not be the case but pt very much believes and takes action based on delusion despite here reporting that it may not be happening. It is unclear report from [facility] as to suicidal ideation. no indication of imminent harm to self or others, but collateral information is pending from family. May consider antipsychotic. PLAN 1. Continue with same treatment. 2. Waiting for placement. 04/17: Continue current regimen and plans 04/20: Continue current management and treatment plan. Reason for continued inpatient stay Substantial Risk for: inability to function, rapid decompensation and med/psych decompensation Time Spent With Patient Time: Total time managing care of this patient today ____ minutes.
[2024-04-20 19:22] VITALS: BP 136/70; PULSE 82; TEMP 36.2; O2SAT 96
[2024-04-20] MEDS: Donepezil HCl 5 MG TABLET PO (19:40)
[2024-04-20] MEDS: metFORMIN HCl 500 MG TABLET PO (19:41)
[2024-04-20] MEDS: Atorvastatin Calcium 10 MG TABLET PO (19:41)
[2024-04-20] MEDS: Loratadine 10 MG TABLET PO (19:41)
[2024-04-20] MEDS: Zolpidem Tartrate 5 MG TABLET PO (19:41)
[2024-04-21] MEDS: Levothyroxine Sodium 88 MCG TABLET PO (05:27)
[2024-04-21 05:38] LABS: Glucose, Whole Blood 190 mg/dL (60-115)
[2024-04-21 08:00] VITALS: BP 151/67; PULSE 66; RESP 18; TEMP 36.1; O2SAT 98
[2024-04-21 08:40] VITALS: BP 151/67
[2024-04-21] MEDS: CYCLOSPORINE 1 EACH EYE-BOTH ×2 (08:40→21:20)
[2024-04-21] MEDS: SITagliptin Phosphate 50 MG TABLET PO (08:40)
[2024-04-21] MEDS: amLODIPine Besylate 2.5 MG TABLET PO (08:40)
[2024-04-21] MEDS: Cholecalciferol (Vitamin D3) 25 MCG TABLET PO (08:41)
[2024-04-21] MEDS: Escitalopram Oxalate 10 MG TABLET PO (08:41)
[2024-04-21] MEDS: Memantine HCl 5 MG TABLET PO (08:41)
[2024-04-21] MEDS: allopurinoL 100 MG TABLET PO (08:41)
[2024-04-21] MEDS: Acetaminophen 325 MG TABLET 650 MG PO ×2 (08:41→21:20)
[2024-04-21] MEDS: Simethicone 80 MG TAB.CHEW PO ×2 (08:41→21:20)
--- NOTE | 2024-04-21 10:10 | HO.PSYCHPN ---
Subjective Subjective Date of Service: 04/21/24 Reason For Visit: psychosis Interim History: Patient reports she has no complaints and [facility]. She is eager to leave. Denies SI/HI/AVH. Mood is stable. Pt sleeping through the night. No behavioral concerns. She denies any physical concerns, social with select peers when in the milieu. Review of Systems Review of Systems unremarkable Yes all other systems are reviewed and are negative Constitutional: Reports fatigue, Reports malaise and Reports weakness Reports vertigo and Reports dizziness Cardiovascular: Reports lightheadedness Reports vertigo, Reports dizziness and Reports weakness Endocrine: Reports fatigue Mental Status Exam Mental Status Exam Narrative: Appearance: wearing casual clothing, in bed, no NAD Behavior: cooperative Psychomotor: no retardation or agitation noted Speech: clear, normal rate/rhythm/volume, spontaneous TP: mostly linear TC: feeling okay Mood: fine Affect: congruent, SI: denies HI: denies VH/AH: none Delusions: not reported Insight/judgment: Limited memory/cog: alert, oriented x 3. Patient Appearance: Appropriate Patient Orientation: Person and Situation Level of Consciousness: Awake and Appropriate Patient Behavior: Guarded and Passive Mood Description: Withdrawn Affect Description: Constricted Patient Cognition Impaired: Yes Ability to Follow Directions: Good Speech Pattern: Clear Memory Description: Intact Diagnostics Vital Signs (24Hr): Vital Signs - 24 hr 04/20/24 19:22 04/21/24 08:00 04/21/24 08:40 Temperature 97.1 F 96.9 F Pulse Rate 82 66 Respiratory Rate 18 Blood Pressure 136/70 151/67 H 151/67 H Pulse Oximetry 96 98 Oxygen Delivery Method Room Air Room Air BMI result Body Mass Index 25.8 Labs 01/06/24 07:28 04/20/24 07:33 Labs: Laboratory Results - last 48 hr 04/20/24 04/20/24 04/21/24 05:47 07:33 05:32 Hold Purple Top SEE NOTE Creatinine 1.24 Estim Creat Clear Calc 33.2 Estimated GFR 41 POC Glucose 149 H 190 H Medications Medications Current Medications Acetaminophen (Acetaminophen 325 Mg Tablet) 650 mg PO Q6H PRN PRN Reason: Headache/Pain Mild Scale (1-3) Last Admin: 04/21/24 08:41 Dose: 650 mg Al Hydroxide/Mg Hydroxide (Magnesium Hydrox/Alum Hydrox 30 Ml Oral.Susp) 30 ml PO Q6H PRN PRN Reason: Heartburn/Nausea Allopurinol (Allopurinol 100 Mg Tablet) 100 mg PO DAILY [facility] Last Admin: 04/21/24 08:41 Dose: 100 mg Amlodipine Besylate (Amlodipine Besylate 2.5 Mg Tablet) 2.5 mg PO DAILY [facility]; Protocol Last Admin: 04/21/24 08:40 Dose: 2.5 mg Artificial Tears (Artificial Tears 15 Ml Drops) 2 drop EYE-BOTH Q4H PRN PRN Reason: Dry Eyes Last Admin: 04/14/24 21:38 Dose: 2 drop Atorvastatin Calcium (Atorvastatin Calcium 10 Mg Tablet) 10 mg PO BEDTIME [facility] Last Admin: 04/20/24 19:41 Dose: 10 mg Cyclobenzaprine HCl (Cyclobenzaprine Hcl 5 Mg Tablet) 5 mg PO TID PRN PRN Reason: Back spasms Donepezil HCl (Donepezil Hcl 5 Mg Tablet) 5 mg PO BEDTIME [facility] Last Admin: 04/20/24 19:40 Dose: 5 mg Escitalopram Oxalate (Escitalopram Oxalate 10 Mg Tablet) 10 mg PO DAILY [facility] Last Admin: 04/21/24 08:41 Dose: 10 mg Levothyroxine Sodium (Levothyroxine Sodium 88 Mcg Tablet) 88 mcg PO DAILY@0600 [facility] Last Admin: 04/21/24 05:27 Dose: 88 mcg Lidocaine (Lidocaine 4 % Patch Adh..Patch) 1 patch TRANSDERMA DAILY [facility] Last Admin: 04/21/24 08:45 Dose: Not Given Loperamide HCl (Loperamide Hcl 2 Mg Capsule) 2 mg PO Q4H PRN PRN Reason: Loose Stool Loratadine (Loratadine 10 Mg Tablet) 10 mg PO DAILY PRN PRN Reason: seasonal allergies Last Admin: 04/20/24 19:41 Dose: 10 mg Magnesium Hydroxide (Milk Of Magnesia 30 Ml Oral.Susp) 30 ml PO DAILY PRN PRN Reason: Constipation Memantine (Memantine Hcl 5 Mg Tablet) 5 mg PO DAILY [facility] Last Admin: 04/21/24 08:41 Dose: 5 mg Metformin HCl (Metformin Hcl 500 Mg Tablet) 500 mg PO BEDTIME [facility] Last Admin: 04/20/24 19:41 Dose: 500 mg Pt Own (Cyclosporine ([Restasis] 1 Drop)) 1 drop EYE-BOTH BID [facility] Last Admin: 04/21/24 08:40 Dose: 1 drop Olanzapine (Olanzapine 2.5 Mg Tablet) 2.5 mg PO Q4H PRN PRN Reason: agitation/acute psychosis Simethicone (Simethicone 80 Mg Tab.Chew) 80 mg PO QIDWMHS PRN PRN Reason: bloating Last Admin: 04/21/24 08:41 Dose: 80 mg Sitagliptin Phosphate (Sitagliptin Phosphate 50 Mg Tablet) 50 mg PO DAILY [facility] Last Admin: 04/21/24 08:40 Dose: 50 mg Trazodone HCl (Trazodone Hcl 50 Mg Tablet) 50 mg PO BEDTIME [facility]X1 PRN PRN Reason: Insomnia Last Admin: 02/05/24 21:08 Dose: 50 mg Vitamin D (Cholecalciferol (Vitamin D3) 25 Mcg Tablet) 25 mcg PO DAILY [facility] Last Admin: 04/21/24 08:41 Dose: 25 mcg Zolpidem Tartrate (Zolpidem Tartrate 5 Mg Tablet) 5 mg PO BEDTIME [facility] Last Admin: 04/20/24 19:41 Dose: 5 mg Allergies Allergies Allergy/AdvReac Type Severity Reaction Status Date / Time codeine Allergy Unknown Verified 12/07/23 20:27 Assessment & Plan Assessment & Plan (1) Dementia with psychotic disturbance: Status: Acute Code(s): F03.92 - Unspecified dementia, unspecified severity, with psychotic disturbance Plan Mrs. Jin is a 83 year-old woman with hx of vascular dementia with delusions of having an affair and some paranoid delusions. Some insight that this may not be the case but pt very much believes and takes action based on delusion despite here reporting that it may not be happening. It is unclear report from [facility] as to suicidal ideation. no indication of imminent harm to self or others, but collateral information is pending from family. May consider antipsychotic. PLAN 1. Continue with same treatment. 2. Waiting for placement. 04/17: Continue current regimen and plans 04/20: Continue current management and treatment plan. 04/21: Continue current management and treatment plan. Reason for continued inpatient stay Substantial Risk for: inability to function, rapid decompensation and med/psych decompensation Time Spent With Patient Time: Total time managing care of this patient today ____ minutes.
[2024-04-21 20:00] VITALS: BP 116/85; PULSE 62; RESP 16; TEMP 36.9; O2SAT 97
[2024-04-21] MEDS: Loratadine 10 MG TABLET PO (21:20)
[2024-04-21] MEDS: Donepezil HCl 5 MG TABLET PO (21:21)
[2024-04-21] MEDS: metFORMIN HCl 500 MG TABLET PO (21:21)
[2024-04-21] MEDS: Zolpidem Tartrate 5 MG TABLET PO (21:21)
[2024-04-21] MEDS: Atorvastatin Calcium 10 MG TABLET PO (21:21)
[2024-04-21] MEDS: polyethylene glycoL 3350 17 GM POWD.PACK PO (21:49)
[2024-04-22] MEDS: Levothyroxine Sodium 88 MCG TABLET PO (06:09)
[2024-04-22 06:49] LABS: Glucose, Whole Blood 213 mg/dL (60-115)
[2024-04-22 09:02] VITALS: BP 114/56; PULSE 68; RESP 16; TEMP 36.7; O2SAT 98
[2024-04-22] MEDS: Acetaminophen 325 MG TABLET 650 MG PO ×2 (09:07→21:09)
[2024-04-22] MEDS: CYCLOSPORINE 1 EACH EYE-BOTH ×2 (09:07→21:09)
[2024-04-22] MEDS: Simethicone 80 MG TAB.CHEW PO ×2 (09:08→21:09)
[2024-04-22] MEDS: allopurinoL 100 MG TABLET PO (09:08)
[2024-04-22] MEDS: Memantine HCl 5 MG TABLET PO (09:08)
[2024-04-22] MEDS: Cholecalciferol (Vitamin D3) 25 MCG TABLET PO (09:08)
[2024-04-22] MEDS: Escitalopram Oxalate 10 MG TABLET PO (09:09)
[2024-04-22] MEDS: amLODIPine Besylate 2.5 MG TABLET PO (09:09)
[2024-04-22] MEDS: SITagliptin Phosphate 50 MG TABLET PO (09:09)
--- NOTE | 2024-04-22 14:40 | P.PNPSI_ITS ---
Subjective Subjective Date of Service: 04/22/24 Reason For Visit: psychosis Subjective Notes: Conditional Voluntary Interim History: The nursing staff reported no changes in mental status compliant with treatment. On interview the patient denies new symptoms, waiting for placement. Mental Status Exam Mental Status Exam Patient Appearance: Appropriate Patient Orientation: Person and Situation Level of Consciousness: Awake and Appropriate Patient Behavior: Guarded and Passive Mood Description: Withdrawn Affect Description: Constricted Patient Cognition Impaired: Yes Ability to Follow Directions: Good Speech Pattern: Clear Hallucinations: None Delusions: Paranoid Ideation and Ideas of Reference Thought Process: Distracted and Slowed Thinking Thought Content: positive for [place] and positive for Poverty of Content Judgement: Fair Diagnostics Vital Signs (24Hr): Vital Signs - 24 hr 04/21/24 20:00 04/22/24 09:02 Temperature 98.5 F 98.1 F Pulse Rate 62 68 Respiratory Rate 16 16 Blood Pressure 116/85 114/56 L Pulse Oximetry 97 98 Oxygen Delivery Method Room Air Room Air BMI result Body Mass Index 25.8 Labs 01/06/24 07:28 04/20/24 07:33 Labs: Laboratory Results - last 48 hr 04/21/24 04/22/24 05:32 06:29 POC Glucose 190 H 213 H Medications Medications Current Medications Acetaminophen (Acetaminophen 325 Mg Tablet) 650 mg PO Q6H PRN PRN Reason: Headache/Pain Mild Scale (1-3) Last Admin: 04/22/24 09:07 Dose: 650 mg Al Hydroxide/Mg Hydroxide (Magnesium Hydrox/Alum Hydrox 30 Ml Oral.Susp) 30 ml PO Q6H PRN PRN Reason: Heartburn/Nausea Allopurinol (Allopurinol 100 Mg Tablet) 100 mg PO DAILY [facility] Last Admin: 04/22/24 09:08 Dose: 100 mg Amlodipine Besylate (Amlodipine Besylate 2.5 Mg Tablet) 2.5 mg PO DAILY [facility]; Protocol Last Admin: 04/22/24 09:09 Dose: 2.5 mg Artificial Tears (Artificial Tears 15 Ml Drops) 2 drop EYE-BOTH Q4H PRN PRN Reason: Dry Eyes Last Admin: 04/14/24 21:38 Dose: 2 drop Atorvastatin Calcium (Atorvastatin Calcium 10 Mg Tablet) 10 mg PO BEDTIME [facility] Last Admin: 04/21/24 21:21 Dose: 10 mg Cyclobenzaprine HCl (Cyclobenzaprine Hcl 5 Mg Tablet) 5 mg PO TID PRN PRN Reason: Back spasms Donepezil HCl (Donepezil Hcl 5 Mg Tablet) 5 mg PO BEDTIME [facility] Last Admin: 04/21/24 21:21 Dose: 5 mg Escitalopram Oxalate (Escitalopram Oxalate 10 Mg Tablet) 10 mg PO DAILY [facility] Last Admin: 04/22/24 09:09 Dose: 10 mg Levothyroxine Sodium (Levothyroxine Sodium 88 Mcg Tablet) 88 mcg PO DAILY@0600 [facility] Last Admin: 04/22/24 06:09 Dose: 88 mcg Lidocaine (Lidocaine 4 % Patch Adh..Patch) 1 patch TRANSDERMA DAILY [facility] Last Admin: 04/22/24 09:09 Dose: Not Given Loperamide HCl (Loperamide Hcl 2 Mg Capsule) 2 mg PO Q4H PRN PRN Reason: Loose Stool Loratadine (Loratadine 10 Mg Tablet) 10 mg PO DAILY PRN PRN Reason: seasonal allergies Last Admin: 04/21/24 21:20 Dose: 10 mg Magnesium Hydroxide (Milk Of Magnesia 30 Ml Oral.Susp) 30 ml PO DAILY PRN PRN Reason: Constipation Memantine (Memantine Hcl 5 Mg Tablet) 5 mg PO DAILY [facility] Last Admin: 04/22/24 09:08 Dose: 5 mg Metformin HCl (Metformin Hcl 500 Mg Tablet) 500 mg PO BEDTIME [facility] Last Admin: 04/21/24 21:21 Dose: 500 mg Pt Own (Cyclosporine ([Restasis] 1 Drop)) 1 drop EYE-BOTH BID [facility] Last Admin: 04/22/24 09:07 Dose: 1 drop Olanzapine (Olanzapine 2.5 Mg Tablet) 2.5 mg PO Q4H PRN PRN Reason: agitation/acute psychosis Simethicone (Simethicone 80 Mg Tab.Chew) 80 mg PO QIDWMHS PRN PRN Reason: bloating Last Admin: 04/22/24 09:08 Dose: 80 mg Sitagliptin Phosphate (Sitagliptin Phosphate 50 Mg Tablet) 50 mg PO DAILY [facility] Last Admin: 04/22/24 09:09 Dose: 50 mg Trazodone HCl (Trazodone Hcl 50 Mg Tablet) 50 mg PO BEDTIME MRX1 PRN PRN Reason: Insomnia Last Admin: 02/05/24 21:08 Dose: 50 mg Vitamin D (Cholecalciferol (Vitamin D3) 25 Mcg Tablet) 25 mcg PO DAILY [facility] Last Admin: 04/22/24 09:08 Dose: 25 mcg Zolpidem Tartrate (Zolpidem Tartrate 5 Mg Tablet) 5 mg PO BEDTIME [facility] Last Admin: 04/21/24 21:21 Dose: 5 mg Allergies Allergies Allergy/AdvReac Type Severity Reaction Status Date / Time codeine Allergy Unknown Verified 12/07/23 20:27 Assessment & Plan Assessment & Plan (1) Dementia with psychotic disturbance: Status: Acute Code(s): F03.92 - Unspecified dementia, unspecified severity, with psychotic disturbance Plan Mrs. Jin is a 83 year-old woman with hx of vascular dementia with delusions of having an affair and some paranoid delusions. Some insight that this may not be the case but pt very much believes and takes action based on delusion despite here reporting that it may not be happening. It is unclear report from [facility] as to suicidal ideation. no indication of imminent harm to self or others, but collateral information is pending from family. May consider antipsychotic. PLAN 1. Continue with same treatment. 2. Waiting for placement. Reason for continued inpatient stay Substantial Risk for: inability to function, rapid decompensation and med/psych decompensation Time Spent With Patient Time: Total time managing care of this patient today __20__ minutes.
[2024-04-22 20:00] VITALS: BP 121/58; PULSE 76; RESP 16; TEMP 36.6; O2SAT 99
[2024-04-22] MEDS: Atorvastatin Calcium 10 MG TABLET PO (21:09)
[2024-04-22] MEDS: metFORMIN HCl 500 MG TABLET PO (21:09)
[2024-04-22] MEDS: Loratadine 10 MG TABLET PO (21:10)
[2024-04-22] MEDS: Zolpidem Tartrate 5 MG TABLET PO (21:10)
[2024-04-22] MEDS: Donepezil HCl 5 MG TABLET PO (21:10)
[2024-04-23] MEDS: Levothyroxine Sodium 88 MCG TABLET PO (06:21)
[2024-04-23 06:28] LABS: Glucose, Whole Blood 201 mg/dL (60-115)
[2024-04-23 08:49] VITALS: BP 122/56; PULSE 79; RESP 18; TEMP 36.8; O2SAT 98
[2024-04-23] MEDS: Cholecalciferol (Vitamin D3) 25 MCG TABLET PO (08:51)
[2024-04-23] MEDS: CYCLOSPORINE 1 EACH EYE-BOTH ×2 (08:51→20:46)
[2024-04-23] MEDS: Acetaminophen 325 MG TABLET 650 MG PO ×2 (08:52→20:42)
[2024-04-23] MEDS: Memantine HCl 5 MG TABLET PO (08:52)
[2024-04-23] MEDS: Simethicone 80 MG TAB.CHEW PO (08:53)
[2024-04-23] MEDS: Escitalopram Oxalate 10 MG TABLET PO (08:53)
[2024-04-23] MEDS: allopurinoL 100 MG TABLET PO (08:53)
[2024-04-23] MEDS: SITagliptin Phosphate 50 MG TABLET PO (08:54)
[2024-04-23] MEDS: amLODIPine Besylate 2.5 MG TABLET PO (08:54)
--- NOTE | 2024-04-23 15:32 | HO.PSYCHPN ---
Subjective Subjective Date of Service: 04/23/24 Reason For Visit: psychosis Subjective Notes: Conditional Voluntary Interim History: The nursing staff reported no changes in mental status compliant with treatment. The social insurance adviser reported that she still waiting for financial clearance. On interview the patient denies new symptoms waiting for placement. Mental Status Exam Mental Status Exam Patient Appearance: Appropriate Patient Orientation: Person and Situation Level of Consciousness: Awake and Appropriate Patient Behavior: Guarded and Passive Mood Description: Withdrawn Affect Description: Constricted Patient Cognition Impaired: Yes Ability to Follow Directions: Good Speech Pattern: Clear Hallucinations: None Delusions: Not Present Thought Process: Distracted and Slowed Thinking Thought Content: positive for [place] and positive for Poverty of Content Judgement: Fair Diagnostics Vital Signs (24Hr): Vital Signs - 24 hr 04/22/24 20:00 04/23/24 08:49 Temperature 97.8 F 98.2 F Pulse Rate 76 79 Respiratory Rate 16 18 Blood Pressure 121/58 L 122/56 L Pulse Oximetry 99 98 Oxygen Delivery Method Room Air Room Air BMI result Body Mass Index 25.8 Labs 01/06/24 07:28 04/20/24 07:33 Labs: Laboratory Results - last 48 hr 04/22/24 04/23/24 06:29 06:20 POC Glucose 213 H 201 H Medications Medications Current Medications Acetaminophen (Acetaminophen 325 Mg Tablet) 650 mg PO Q6H PRN PRN Reason: Headache/Pain Mild Scale (1-3) Last Admin: 04/23/24 08:52 Dose: 650 mg Al Hydroxide/Mg Hydroxide (Magnesium Hydrox/Alum Hydrox 30 Ml Oral.Susp) 30 ml PO Q6H PRN PRN Reason: Heartburn/Nausea Allopurinol (Allopurinol 100 Mg Tablet) 100 mg PO DAILY [facility] Last Admin: 04/23/24 08:53 Dose: 100 mg Amlodipine Besylate (Amlodipine Besylate 2.5 Mg Tablet) 2.5 mg PO DAILY [facility]; Protocol Last Admin: 04/23/24 08:54 Dose: 2.5 mg Artificial Tears (Artificial Tears 15 Ml Drops) 2 drop EYE-BOTH Q4H PRN PRN Reason: Dry Eyes Last Admin: 04/14/24 21:38 Dose: 2 drop Atorvastatin Calcium (Atorvastatin Calcium 10 Mg Tablet) 10 mg PO BEDTIME [facility] Last Admin: 04/22/24 21:09 Dose: 10 mg Cyclobenzaprine HCl (Cyclobenzaprine Hcl 5 Mg Tablet) 5 mg PO TID PRN PRN Reason: Back spasms Donepezil HCl (Donepezil Hcl 5 Mg Tablet) 5 mg PO BEDTIME [facility] Last Admin: 04/22/24 21:10 Dose: 5 mg Escitalopram Oxalate (Escitalopram Oxalate 10 Mg Tablet) 10 mg PO DAILY [facility] Last Admin: 04/23/24 08:53 Dose: 10 mg Levothyroxine Sodium (Levothyroxine Sodium 88 Mcg Tablet) 88 mcg PO DAILY@0600 [facility] Last Admin: 04/23/24 06:21 Dose: 88 mcg Lidocaine (Lidocaine 4 % Patch Adh..Patch) 1 patch TRANSDERMA DAILY [facility] Last Admin: 04/23/24 08:54 Dose: Not Given Loperamide HCl (Loperamide Hcl 2 Mg Capsule) 2 mg PO Q4H PRN PRN Reason: Loose Stool Loratadine (Loratadine 10 Mg Tablet) 10 mg PO DAILY PRN PRN Reason: seasonal allergies Last Admin: 04/22/24 21:10 Dose: 10 mg Magnesium Hydroxide (Milk Of Magnesia 30 Ml Oral.Susp) 30 ml PO DAILY PRN PRN Reason: Constipation Memantine (Memantine Hcl 5 Mg Tablet) 5 mg PO DAILY [facility] Last Admin: 04/23/24 08:52 Dose: 5 mg Metformin HCl (Metformin Hcl 500 Mg Tablet) 500 mg PO BEDTIME [facility] Last Admin: 04/22/24 21:09 Dose: 500 mg Pt Own (Cyclosporine ([Restasis] 1 Drop)) 1 drop EYE-BOTH BID [facility] Last Admin: 04/23/24 08:51 Dose: 1 drop Olanzapine (Olanzapine 2.5 Mg Tablet) 2.5 mg PO Q4H PRN PRN Reason: agitation/acute psychosis Simethicone (Simethicone 80 Mg Tab.Chew) 80 mg PO QIDWMHS PRN PRN Reason: bloating Last Admin: 04/23/24 08:53 Dose: 80 mg Sitagliptin Phosphate (Sitagliptin Phosphate 50 Mg Tablet) 50 mg PO DAILY [facility] Last Admin: 04/23/24 08:54 Dose: 50 mg Trazodone HCl (Trazodone Hcl 50 Mg Tablet) 50 mg PO BEDTIME MRX1 PRN PRN Reason: Insomnia Last Admin: 02/05/24 21:08 Dose: 50 mg Vitamin D (Cholecalciferol (Vitamin D3) 25 Mcg Tablet) 25 mcg PO DAILY [facility] Last Admin: 04/23/24 08:51 Dose: 25 mcg Zolpidem Tartrate (Zolpidem Tartrate 5 Mg Tablet) 5 mg PO BEDTIME [facility] Last Admin: 04/22/24 21:10 Dose: 5 mg Allergies Allergies Allergy/AdvReac Type Severity Reaction Status Date / Time codeine Allergy Unknown Verified 12/07/23 20:27 Assessment & Plan Assessment & Plan (1) Dementia with psychotic disturbance: Status: Acute Code(s): F03.92 - Unspecified dementia, unspecified severity, with psychotic disturbance Plan Mrs. Jin is a 83 year-old woman with hx of vascular dementia with delusions of having an affair and some paranoid delusions. Some insight that this may not be the case but pt very much believes and takes action based on delusion despite here reporting that it may not be happening. It is unclear report from [facility] as to suicidal ideation. no indication of imminent harm to self or others, but collateral information is pending from family. May consider antipsychotic. PLAN 1. Continue with same treatment. 2. Waiting for placement. Reason for continued inpatient stay Substantial Risk for: inability to function, rapid decompensation and med/psych decompensation Time Spent With Patient Time: Total time managing care of this patient today __20__ minutes.
[2024-04-23 20:00] VITALS: BP 147/63; PULSE 77; RESP 16; TEMP 36.3; O2SAT 97
[2024-04-23] MEDS: Atorvastatin Calcium 10 MG TABLET PO (20:42)
[2024-04-23] MEDS: Donepezil HCl 5 MG TABLET PO (20:42)
[2024-04-23] MEDS: metFORMIN HCl 500 MG TABLET PO (20:42)
[2024-04-23] MEDS: Zolpidem Tartrate 5 MG TABLET PO (20:45)
[2024-04-24] MEDS: Levothyroxine Sodium 88 MCG TABLET PO (05:55)
[2024-04-24 06:30] LABS: Glucose, Whole Blood 159 mg/dL (60-115)
[2024-04-24 08:37] VITALS: BP 146/66; PULSE 68; RESP 18; TEMP 36.3; O2SAT 99
[2024-04-24] MEDS: CYCLOSPORINE 1 EACH EYE-BOTH ×2 (08:41→21:15)
[2024-04-24] MEDS: Cholecalciferol (Vitamin D3) 25 MCG TABLET PO (08:42)
[2024-04-24] MEDS: amLODIPine Besylate 2.5 MG TABLET PO (08:42)
[2024-04-24] MEDS: allopurinoL 100 MG TABLET PO (08:42)
[2024-04-24] MEDS: SITagliptin Phosphate 50 MG TABLET PO (08:42)
[2024-04-24] MEDS: Memantine HCl 5 MG TABLET PO (08:42)
[2024-04-24] MEDS: Escitalopram Oxalate 10 MG TABLET PO (08:42)
[2024-04-24] MEDS: Acetaminophen 325 MG TABLET 650 MG PO ×2 (08:49→21:16)
[2024-04-24] MEDS: Simethicone 80 MG TAB.CHEW PO ×2 (08:49→21:14)
[2024-04-24] MEDS: Loperamide HCl 2 MG CAPSULE PO (10:06)
--- NOTE | 2024-04-24 13:16 | P.PNPSI_ITS ---
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 Medication Compliance: Yes Side effects from medications: No (?) Attending Groups: No Review of Systems Acute medical concerns: No Review of Systems: recent loose bowels- will follow Mental Status Exam Mental Status Exam Narrative: lying in bed Patient Appearance: Appropriate Patient Orientation: Person and Place Level of Consciousness: Awake Patient Behavior: Dependent and Passive Mood Description: Calm Affect Description: Blunted Patient Cognition Impaired: Yes Ability to Follow Directions: Poor Speech Pattern: Clear Hallucinations: None Delusions: Paranoid Ideation (by hx) Thought Process: Intact and Goal Oriented Thought Content: positive for [place] and positive for Poverty of Content Abnormal Motor Activity Signs and Symptoms: Psychomotor Retardation Judgement: Poor Diagnostics Vital Signs (24Hr): Vital Signs - 24 hr 04/23/24 20:00 04/24/24 08:37 Temperature 97.3 F 97.3 F Pulse Rate 77 68 Respiratory Rate 16 18 Blood Pressure 147/63 H 146/66 H Pulse Oximetry 97 99 Oxygen Delivery Method Room Air Room Air BMI result Body Mass Index 25.8 Labs 01/06/24 07:28 04/20/24 07:33 Labs: Laboratory Results - last 48 hr 04/23/24 04/24/24 06:20 06:24 POC Glucose 201 H 159 H Medications Medications Current Medications Acetaminophen (Acetaminophen 325 Mg Tablet) 650 mg PO Q6H PRN PRN Reason: Headache/Pain Mild Scale (1-3) Last Admin: 04/24/24 08:49 Dose: 650 mg Al Hydroxide/Mg Hydroxide (Magnesium Hydrox/Alum Hydrox 30 Ml Oral.Susp) 30 ml PO Q6H PRN PRN Reason: Heartburn/Nausea Allopurinol (Allopurinol 100 Mg Tablet) 100 mg PO DAILY [facility] Last Admin: 04/24/24 08:42 Dose: 100 mg Amlodipine Besylate (Amlodipine Besylate 2.5 Mg Tablet) 2.5 mg PO DAILY [facility]; Protocol Last Admin: 04/24/24 08:42 Dose: 2.5 mg Artificial Tears (Artificial Tears 15 Ml Drops) 2 drop EYE-BOTH Q4H PRN PRN Reason: Dry Eyes Last Admin: 04/14/24 21:38 Dose: 2 drop Atorvastatin Calcium (Atorvastatin Calcium 10 Mg Tablet) 10 mg PO BEDTIME [facility] Last Admin: 04/23/24 20:42 Dose: 10 mg Cyclobenzaprine HCl (Cyclobenzaprine Hcl 5 Mg Tablet) 5 mg PO TID PRN PRN Reason: Back spasms Donepezil HCl (Donepezil Hcl 5 Mg Tablet) 5 mg PO BEDTIME [facility] Last Admin: 04/23/24 20:42 Dose: 5 mg Escitalopram Oxalate (Escitalopram Oxalate 10 Mg Tablet) 10 mg PO DAILY [facility] Last Admin: 04/24/24 08:42 Dose: 10 mg Levothyroxine Sodium (Levothyroxine Sodium 88 Mcg Tablet) 88 mcg PO DAILY@0600 [facility] Last Admin: 04/24/24 05:55 Dose: 88 mcg Lidocaine (Lidocaine 4 % Patch Adh..Patch) 1 patch TRANSDERMA DAILY [facility] Last Admin: 04/24/24 08:42 Dose: Not Given Loperamide HCl (Loperamide Hcl 2 Mg Capsule) 2 mg PO Q4H PRN PRN Reason: Loose Stool Last Admin: 04/24/24 10:06 Dose: 2 mg Loratadine (Loratadine 10 Mg Tablet) 10 mg PO DAILY PRN PRN Reason: seasonal allergies Last Admin: 04/22/24 21:10 Dose: 10 mg Magnesium Hydroxide (Milk Of Magnesia 30 Ml Oral.Susp) 30 ml PO DAILY PRN PRN Reason: Constipation Memantine (Memantine Hcl 5 Mg Tablet) 5 mg PO DAILY [facility] Last Admin: 04/24/24 08:42 Dose: 5 mg Metformin HCl (Metformin Hcl 500 Mg Tablet) 500 mg PO BEDTIME [facility] Last Admin: 04/23/24 20:42 Dose: 500 mg Pt Own (Cyclosporine ([Restasis] 1 Drop)) 1 drop EYE-BOTH BID [facility] Last Admin: 04/24/24 08:41 Dose: 1 drop Olanzapine (Olanzapine 2.5 Mg Tablet) 2.5 mg PO Q4H PRN PRN Reason: agitation/acute psychosis Simethicone (Simethicone 80 Mg Tab.Chew) 80 mg PO QIDWMHS PRN PRN Reason: bloating Last Admin: 04/24/24 08:49 Dose: 80 mg Sitagliptin Phosphate (Sitagliptin Phosphate 50 Mg Tablet) 50 mg PO DAILY [facility] Last Admin: 04/24/24 08:42 Dose: 50 mg Trazodone HCl (Trazodone Hcl 50 Mg Tablet) 50 mg PO BEDTIME MRX1 PRN PRN Reason: Insomnia Last Admin: 02/05/24 21:08 Dose: 50 mg Vitamin D (Cholecalciferol (Vitamin D3) 25 Mcg Tablet) 25 mcg PO DAILY [facility] Last Admin: 04/24/24 08:42 Dose: 25 mcg Zolpidem Tartrate (Zolpidem Tartrate 5 Mg Tablet) 5 mg PO BEDTIME [facility] Last Admin: 04/23/24 20:45 Dose: 5 mg Allergies Allergies Allergy/AdvReac Type Severity Reaction Status Date / Time codeine Allergy Unknown Verified 12/07/23 20:27 Assessment & Plan Assessment & Plan (1) Dementia with psychotic disturbance: Status: Acute Code(s): F03.92 - Unspecified dementia, unspecified severity, with psychotic disturbance Plan Mrs. Jin is a 83 year-old woman with hx of vascular dementia with delusions of having an affair and some paranoid delusions. Some insight that this may not be the case but pt very much believes and takes action based on delusion despite here reporting that it may not be happening. It is unclear report from [facility] as to suicidal ideation. no indication of imminent harm to self or others, but collateral information is pending from family. May consider antipsychotic. PLAN 1. Continue with same treatment. 2. Waiting for placement. 04/24/24- ? change re bowels continue to observe monitor for dehydration ongoing placement issues due to full care and dementia with psychosis Patient educated on: medical condition Informed Consent: understands Reason for continued inpatient stay Substantial Risk for: inability to function and med/psych decompensation Time Spent With Patient Time: Total time managing care of this patient today ____ minutes.
[2024-04-24 19:34] VITALS: BP 134/63; PULSE 74; TEMP 36.3; O2SAT 98
[2024-04-24] MEDS: metFORMIN HCl 500 MG TABLET PO (21:14)
[2024-04-24] MEDS: Zolpidem Tartrate 5 MG TABLET PO (21:15)
[2024-04-24] MEDS: Donepezil HCl 5 MG TABLET PO (21:15)
[2024-04-24] MEDS: Atorvastatin Calcium 10 MG TABLET PO (21:16)
[2024-04-25] MEDS: Levothyroxine Sodium 88 MCG TABLET PO (06:17)
[2024-04-25 07:00] VITALS: BMI 28.8
[2024-04-25 08:00] VITALS: BP 115/68; PULSE 76; RESP 18; TEMP 37; O2SAT 97
[2024-04-25] MEDS: amLODIPine Besylate 2.5 MG TABLET PO (08:19)
[2024-04-25] MEDS: SITagliptin Phosphate 50 MG TABLET PO (08:19)
[2024-04-25] MEDS: allopurinoL 100 MG TABLET PO (08:19)
[2024-04-25] MEDS: Cholecalciferol (Vitamin D3) 25 MCG TABLET PO (08:19)
[2024-04-25] MEDS: CYCLOSPORINE 1 EACH EYE-BOTH ×2 (08:19→23:31)
[2024-04-25] MEDS: Escitalopram Oxalate 10 MG TABLET PO (08:19)
[2024-04-25] MEDS: Memantine HCl 5 MG TABLET PO (08:19)
[2024-04-25] MEDS: Acetaminophen 325 MG TABLET 650 MG PO ×2 (10:50→19:58)
[2024-04-25] MEDS: Simethicone 80 MG TAB.CHEW PO ×2 (10:51→19:59)
--- NOTE | 2024-04-25 13:03 | P.PNPSI_ITS ---
Subjective Subjective Date of Service: 04/25/24 Reason For Visit: psychosis Subjective Notes: Conditional Voluntary Interim History: The nursing staff reported no changes in her mental status cooperative and pleasant. The clinical social work therapist reported that most likely she could be discharged tomorrow she is financially cleared. On interview the patient denies new symptoms, waiting for placement. Mental Status Exam Mental Status Exam Patient Appearance: Appropriate Patient Orientation: Person and Situation Level of Consciousness: Awake and Appropriate Patient Behavior: Guarded and Passive Mood Description: Withdrawn Affect Description: Constricted Patient Cognition Impaired: Yes Ability to Follow Directions: Good Speech Pattern: Clear Hallucinations: None Delusions: Not Present Thought Process: Distracted Thought Content: positive for [place] and positive for Poverty of Content Judgement: Fair Diagnostics Vital Signs (24Hr): Vital Signs - 24 hr 04/24/24 19:34 04/25/24 08:00 Temperature 97.4 F 98.6 F Pulse Rate 74 76 Respiratory Rate 18 Blood Pressure 134/63 115/68 Pulse Oximetry 98 97 Oxygen Delivery Method Room Air Room Air BMI result Body Mass Index 25.8 Labs 01/06/24 07:28 04/20/24 07:33 Labs: Laboratory Results - last 48 hr 04/24/24 06:24 POC Glucose 159 H Medications Medications Current Medications Acetaminophen (Acetaminophen 325 Mg Tablet) 650 mg PO Q6H PRN PRN Reason: Headache/Pain Mild Scale (1-3) Last Admin: 04/25/24 10:50 Dose: 650 mg Al Hydroxide/Mg Hydroxide (Magnesium Hydrox/Alum Hydrox 30 Ml Oral.Susp) 30 ml PO Q6H PRN PRN Reason: Heartburn/Nausea Allopurinol (Allopurinol 100 Mg Tablet) 100 mg PO DAILY [facility] Last Admin: 04/25/24 08:19 Dose: 100 mg Amlodipine Besylate (Amlodipine Besylate 2.5 Mg Tablet) 2.5 mg PO DAILY [facility]; Protocol Last Admin: 04/25/24 08:19 Dose: 2.5 mg Artificial Tears (Artificial Tears 15 Ml Drops) 2 drop EYE-BOTH Q4H PRN PRN Reason: Dry Eyes Last Admin: 04/14/24 21:38 Dose: 2 drop Atorvastatin Calcium (Atorvastatin Calcium 10 Mg Tablet) 10 mg PO BEDTIME [facility] Last Admin: 04/24/24 21:16 Dose: 10 mg Cyclobenzaprine HCl (Cyclobenzaprine Hcl 5 Mg Tablet) 5 mg PO TID PRN PRN Reason: Back spasms Donepezil HCl (Donepezil Hcl 5 Mg Tablet) 5 mg PO BEDTIME [facility] Last Admin: 04/24/24 21:15 Dose: 5 mg Escitalopram Oxalate (Escitalopram Oxalate 10 Mg Tablet) 10 mg PO DAILY [facility] Last Admin: 04/25/24 08:19 Dose: 10 mg Levothyroxine Sodium (Levothyroxine Sodium 88 Mcg Tablet) 88 mcg PO DAILY@0600 [facility] Last Admin: 04/25/24 06:17 Dose: 88 mcg Lidocaine (Lidocaine 4 % Patch Adh..Patch) 1 patch TRANSDERMA DAILY [facility] Last Admin: 04/25/24 08:19 Dose: Not Given Loperamide HCl (Loperamide Hcl 2 Mg Capsule) 2 mg PO Q4H PRN PRN Reason: Loose Stool Last Admin: 04/24/24 10:06 Dose: 2 mg Loratadine (Loratadine 10 Mg Tablet) 10 mg PO DAILY PRN PRN Reason: seasonal allergies Last Admin: 04/22/24 21:10 Dose: 10 mg Magnesium Hydroxide (Milk Of Magnesia 30 Ml Oral.Susp) 30 ml PO DAILY PRN PRN Reason: Constipation Memantine (Memantine Hcl 5 Mg Tablet) 5 mg PO DAILY [facility] Last Admin: 04/25/24 08:19 Dose: 5 mg Metformin HCl (Metformin Hcl 500 Mg Tablet) 500 mg PO BEDTIME [facility] Last Admin: 04/24/24 21:14 Dose: 500 mg Pt Own (Cyclosporine ([Restasis] 1 Drop)) 1 drop EYE-BOTH BID [facility] Last Admin: 04/25/24 08:19 Dose: 1 drop Olanzapine (Olanzapine 2.5 Mg Tablet) 2.5 mg PO Q4H PRN PRN Reason: agitation/acute psychosis Simethicone (Simethicone 80 Mg Tab.Chew) 80 mg PO QIDWMHS PRN PRN Reason: bloating Last Admin: 04/25/24 10:51 Dose: 80 mg Sitagliptin Phosphate (Sitagliptin Phosphate 50 Mg Tablet) 50 mg PO DAILY [facility] Last Admin: 04/25/24 08:19 Dose: 50 mg Trazodone HCl (Trazodone Hcl 50 Mg Tablet) 50 mg PO BEDTIME MRX1 PRN PRN Reason: Insomnia Last Admin: 02/05/24 21:08 Dose: 50 mg Vitamin D (Cholecalciferol (Vitamin D3) 25 Mcg Tablet) 25 mcg PO DAILY [facility] Last Admin: 04/25/24 08:19 Dose: 25 mcg Zolpidem Tartrate (Zolpidem Tartrate 5 Mg Tablet) 5 mg PO BEDTIME [facility] Last Admin: 04/24/24 21:15 Dose: 5 mg Allergies Allergies Allergy/AdvReac Type Severity Reaction Status Date / Time codeine Allergy Unknown Verified 12/07/23 20:27 Assessment & Plan Assessment & Plan (1) Dementia with psychotic disturbance: Status: Acute Code(s): F03.92 - Unspecified dementia, unspecified severity, with psychotic disturbance Plan Mrs. Jin is a 83 year-old woman with hx of vascular dementia with delusions of having an affair and some paranoid delusions. Some insight that this may not be the case but pt very much believes and takes action based on delusion despite here reporting that it may not be happening. It is unclear report from [facility] as to suicidal ideation. no indication of imminent harm to self or others, but collateral information is pending from family. May consider antipsychotic. PLAN 1. Continue with same treatment. 2. Waiting for placement. Reason for continued inpatient stay Substantial Risk for: inability to function, rapid decompensation and med/psych decompensation Time Spent With Patient Time: Total time managing care of this patient today _20___ minutes.
[2024-04-25] MEDS: Loratadine 10 MG TABLET PO (14:55)
[2024-04-25 19:19] VITALS: BP 136/63; PULSE 73; TEMP 36.2; O2SAT 96
[2024-04-25] MEDS: Atorvastatin Calcium 10 MG TABLET PO (19:58)
[2024-04-25] MEDS: Zolpidem Tartrate 5 MG TABLET PO (19:58)
[2024-04-25] MEDS: metFORMIN HCl 500 MG TABLET PO (19:59)
[2024-04-25] MEDS: Donepezil HCl 5 MG TABLET PO (20:01)
[2024-04-26] MEDS: Levothyroxine Sodium 88 MCG TABLET PO (06:07)
[2024-04-26 09:28] VITALS: BP 150/73; PULSE 78; RESP 18; TEMP 36.9; O2SAT 96
[2024-04-26] MEDS: Simethicone 80 MG TAB.CHEW PO ×2 (09:34→20:44)
[2024-04-26] MEDS: allopurinoL 100 MG TABLET PO (09:35)
[2024-04-26] MEDS: SITagliptin Phosphate 50 MG TABLET PO (09:35)
[2024-04-26] MEDS: Loratadine 10 MG TABLET PO (09:35)
[2024-04-26] MEDS: Memantine HCl 5 MG TABLET PO (09:35)
[2024-04-26] MEDS: Cholecalciferol (Vitamin D3) 25 MCG TABLET PO (09:35)
[2024-04-26] MEDS: Acetaminophen 325 MG TABLET 650 MG PO ×2 (09:35→20:44)
[2024-04-26] MEDS: amLODIPine Besylate 2.5 MG TABLET PO (09:35)
[2024-04-26] MEDS: Escitalopram Oxalate 10 MG TABLET PO (09:35)
[2024-04-26] MEDS: CYCLOSPORINE 1 EACH EYE-BOTH ×2 (09:36→20:43)
--- NOTE | 2024-04-26 15:46 | HO.PSYCHPN ---
Subjective Subjective Date of Service: 04/26/24 Reason For Visit: psychosis Subjective Notes: Conditional Voluntary Interim History: The nursing staff reported no changes in her mental status fully compliant with treatment. On interview the patient denies new symptoms, waiting for placement. Mental Status Exam Mental Status Exam Patient Appearance: Appropriate Patient Orientation: Person and Situation Level of Consciousness: Awake and Appropriate Patient Behavior: Guarded and Passive Mood Description: Calm Affect Description: Constricted Patient Cognition Impaired: Yes Ability to Follow Directions: Good Speech Pattern: Clear Hallucinations: None Delusions: Paranoid Ideation and Ideas of Reference Thought Process: Linear Thought Content: positive for [place] Judgement: Fair Diagnostics Vital Signs (24Hr): Vital Signs - 24 hr 04/25/24 19:19 04/26/24 09:28 Temperature 97.2 F 98.4 F Pulse Rate 73 78 Respiratory Rate 18 Blood Pressure 136/63 150/73 H Pulse Oximetry 96 96 Oxygen Delivery Method Room Air Room Air BMI result Body Mass Index 25.8 Labs 01/06/24 07:28 04/20/24 07:33 Medications Medications Current Medications Acetaminophen (Acetaminophen 325 Mg Tablet) 650 mg PO Q6H PRN PRN Reason: Headache/Pain Mild Scale (1-3) Last Admin: 04/26/24 09:35 Dose: 650 mg Al Hydroxide/Mg Hydroxide (Magnesium Hydrox/Alum Hydrox 30 Ml Oral.Susp) 30 ml PO Q6H PRN PRN Reason: Heartburn/Nausea Allopurinol (Allopurinol 100 Mg Tablet) 100 mg PO DAILY [facility] Last Admin: 04/26/24 09:35 Dose: 100 mg Amlodipine Besylate (Amlodipine Besylate 2.5 Mg Tablet) 2.5 mg PO DAILY [facility]; Protocol Last Admin: 04/26/24 09:35 Dose: 2.5 mg Artificial Tears (Artificial Tears 15 Ml Drops) 2 drop EYE-BOTH Q4H PRN PRN Reason: Dry Eyes Last Admin: 04/14/24 21:38 Dose: 2 drop Atorvastatin Calcium (Atorvastatin Calcium 10 Mg Tablet) 10 mg PO BEDTIME [facility] Last Admin: 04/25/24 19:58 Dose: 10 mg Cyclobenzaprine HCl (Cyclobenzaprine Hcl 5 Mg Tablet) 5 mg PO TID PRN PRN Reason: Back spasms Donepezil HCl (Donepezil Hcl 5 Mg Tablet) 5 mg PO BEDTIME [facility] Last Admin: 04/25/24 20:01 Dose: 5 mg Escitalopram Oxalate (Escitalopram Oxalate 10 Mg Tablet) 10 mg PO DAILY [facility] Last Admin: 04/26/24 09:35 Dose: 10 mg Levothyroxine Sodium (Levothyroxine Sodium 88 Mcg Tablet) 88 mcg PO DAILY@0600 [facility] Last Admin: 04/26/24 06:07 Dose: 88 mcg Lidocaine (Lidocaine 4 % Patch Adh..Patch) 1 patch TRANSDERMA DAILY [facility] Last Admin: 04/26/24 09:37 Dose: Not Given Loperamide HCl (Loperamide Hcl 2 Mg Capsule) 2 mg PO Q4H PRN PRN Reason: Loose Stool Last Admin: 04/24/24 10:06 Dose: 2 mg Loratadine (Loratadine 10 Mg Tablet) 10 mg PO DAILY PRN PRN Reason: seasonal allergies Last Admin: 04/26/24 09:35 Dose: 10 mg Magnesium Hydroxide (Milk Of Magnesia 30 Ml Oral.Susp) 30 ml PO DAILY PRN PRN Reason: Constipation Memantine (Memantine Hcl 5 Mg Tablet) 5 mg PO DAILY [facility] Last Admin: 04/26/24 09:35 Dose: 5 mg Metformin HCl (Metformin Hcl 500 Mg Tablet) 500 mg PO BEDTIME [facility] Last Admin: 04/25/24 19:59 Dose: 500 mg Pt Own (Cyclosporine ([Restasis] 1 Drop)) 1 drop EYE-BOTH BID [facility] Last Admin: 04/26/24 09:36 Dose: 1 drop Olanzapine (Olanzapine 2.5 Mg Tablet) 2.5 mg PO Q4H PRN PRN Reason: agitation/acute psychosis Simethicone (Simethicone 80 Mg Tab.Chew) 80 mg PO QIDWMHS PRN PRN Reason: bloating Last Admin: 04/26/24 09:34 Dose: 80 mg Sitagliptin Phosphate (Sitagliptin Phosphate 50 Mg Tablet) 50 mg PO DAILY [facility] Last Admin: 04/26/24 09:35 Dose: 50 mg Trazodone HCl (Trazodone Hcl 50 Mg Tablet) 50 mg PO BEDTIME MRX1 PRN PRN Reason: Insomnia Last Admin: 02/05/24 21:08 Dose: 50 mg Vitamin D (Cholecalciferol (Vitamin D3) 25 Mcg Tablet) 25 mcg PO DAILY [facility] Last Admin: 04/26/24 09:35 Dose: 25 mcg Zolpidem Tartrate (Zolpidem Tartrate 5 Mg Tablet) 5 mg PO BEDTIME [facility] Last Admin: 04/25/24 19:58 Dose: 5 mg Allergies Allergies Allergy/AdvReac Type Severity Reaction Status Date / Time codeine Allergy Unknown Verified 12/07/23 20:27 Assessment & Plan Assessment & Plan (1) Dementia with psychotic disturbance: Status: Acute Code(s): F03.92 - Unspecified dementia, unspecified severity, with psychotic disturbance Plan Mrs. Jin is a 83 year-old woman with hx of vascular dementia with delusions of having an affair and some paranoid delusions. Some insight that this may not be the case but pt very much believes and takes action based on delusion despite here reporting that it may not be happening. It is unclear report from [facility] as to suicidal ideation. no indication of imminent harm to self or others, but collateral information is pending from family. May consider antipsychotic. PLAN 1. Continue with same treatment. 2. Waiting for placement. 04/24/24- ? change re bowels continue to observe monitor for dehydration ongoing placement issues due to full care and dementia with psychosis Reason for continued inpatient stay Substantial Risk for: inability to function, rapid decompensation and med/psych decompensation Time Spent With Patient Time: Total time managing care of this patient today __20__ minutes.
[2024-04-26 20:00] VITALS: BP 118/59; PULSE 76; TEMP 36.4; O2SAT 99
[2024-04-26] MEDS: Donepezil HCl 5 MG TABLET PO (20:44)
[2024-04-26] MEDS: metFORMIN HCl 500 MG TABLET PO (20:44)
[2024-04-26] MEDS: Atorvastatin Calcium 10 MG TABLET PO (20:44)
[2024-04-26] MEDS: Zolpidem Tartrate 5 MG TABLET PO (20:44)
[2024-04-27] MEDS: Levothyroxine Sodium 88 MCG TABLET PO (06:18)
[2024-04-27 06:39] LABS: Glucose, Whole Blood 217 mg/dL (60-115)
[2024-04-27 07:28] LABS: Creatinine Clr Calc Pharmacy 30.3; Estimated Glomerular Filt Rate 35
--- NOTE | 2024-04-27 08:45 | HO.PSYCHPN ---
Subjective Subjective Date of Service: 04/27/24 Reason For Visit: psychosis Subjective Notes: Conditional Voluntary Healthcare Proxy: Yes Guardianship: No Medical Problems Affecting Mental Status: No Interim History: 83 yo who doesn't get out of bed much out 11am -6pm- nursing reports ? congestion and wheezing- no known copd- no fever- negative resp panel- given prn albuterol and also mucinex but advised patient lying in bed xs time in day can lead to atelectasis and to agree to be out of bed more- She says she goes back to bed due to IBS and incontinence can't stay in soiled depends- denies si/psychosis and is awaiting placement which she thinks she was told was happening before new and now 04/26 and it is past those times Medication Compliance: Yes Side effects from medications: No Attending Groups: No Review of Systems Acute medical concerns: Yes watch cough/wheezing if any other sys may need hospitalist Review of Systems: cough, wheeze denying all other except usual bowel complaints Mental Status Exam Mental Status Exam Narrative: sitting up in wheelchair! with sunglasses on but took them off to talk to provider Patient Appearance: Appropriate Patient Orientation: Person, Place and Situation Level of Consciousness: Awake Patient Behavior: Dependent, Cooperative and Good Eye Contact Mood Description: Calm Affect Description: Constricted Patient Cognition Impaired: Yes Ability to Follow Directions: Fair Speech Pattern: Clear Hallucinations: None Thought Process: Intact and Goal Oriented Thought Content: positive for [place] and positive for Poverty of Content Judgement: Poor Diagnostics Vital Signs (24Hr): Vital Signs - 24 hr 04/26/24 09:28 04/26/24 20:00 Temperature 98.4 F 97.5 F Pulse Rate 78 76 Respiratory Rate 18 Blood Pressure 150/73 H 118/59 L Pulse Oximetry 96 99 Oxygen Delivery Method Room Air Room Air BMI result Body Mass Index 28.8 Labs 01/06/24 07:28 04/27/24 07:09 Labs: Laboratory Results - last 48 hr 04/27/24 04/27/24 06:20 07:09 Creatinine 1.43 H Estim Creat Clear Calc 30.3 Estimated GFR 35 POC Glucose 217 H Medications Medications Current Medications Acetaminophen (Acetaminophen 325 Mg Tablet) 650 mg PO Q6H PRN PRN Reason: Headache/Pain Mild Scale (1-3) Last Admin: 04/26/24 20:44 Dose: 650 mg Al Hydroxide/Mg Hydroxide (Magnesium Hydrox/Alum Hydrox 30 Ml Oral.Susp) 30 ml PO Q6H PRN PRN Reason: Heartburn/Nausea Allopurinol (Allopurinol 100 Mg Tablet) 100 mg PO DAILY [facility] Last Admin: 04/26/24 09:35 Dose: 100 mg Amlodipine Besylate (Amlodipine Besylate 2.5 Mg Tablet) 2.5 mg PO DAILY [facility]; Protocol Last Admin: 04/26/24 09:35 Dose: 2.5 mg Artificial Tears (Artificial Tears 15 Ml Drops) 2 drop EYE-BOTH Q4H PRN PRN Reason: Dry Eyes Last Admin: 04/14/24 21:38 Dose: 2 drop Atorvastatin Calcium (Atorvastatin Calcium 10 Mg Tablet) 10 mg PO BEDTIME [facility] Last Admin: 04/26/24 20:44 Dose: 10 mg Cyclobenzaprine HCl (Cyclobenzaprine Hcl 5 Mg Tablet) 5 mg PO TID PRN PRN Reason: Back spasms Donepezil HCl (Donepezil Hcl 5 Mg Tablet) 5 mg PO BEDTIME [facility] Last Admin: 04/26/24 20:44 Dose: 5 mg Escitalopram Oxalate (Escitalopram Oxalate 10 Mg Tablet) 10 mg PO DAILY [facility] Last Admin: 04/26/24 09:35 Dose: 10 mg Levothyroxine Sodium (Levothyroxine Sodium 88 Mcg Tablet) 88 mcg PO DAILY@0600 [facility] Last Admin: 04/27/24 06:18 Dose: 88 mcg Lidocaine (Lidocaine 4 % Patch Adh..Patch) 1 patch TRANSDERMA DAILY [facility] Last Admin: 04/26/24 09:37 Dose: Not Given Loperamide HCl (Loperamide Hcl 2 Mg Capsule) 2 mg PO Q4H PRN PRN Reason: Loose Stool Last Admin: 04/24/24 10:06 Dose: 2 mg Loratadine (Loratadine 10 Mg Tablet) 10 mg PO DAILY PRN PRN Reason: seasonal allergies Last Admin: 04/26/24 09:35 Dose: 10 mg Magnesium Hydroxide (Milk Of Magnesia 30 Ml Oral.Susp) 30 ml PO DAILY PRN PRN Reason: Constipation Memantine (Memantine Hcl 5 Mg Tablet) 5 mg PO DAILY [facility] Last Admin: 04/26/24 09:35 Dose: 5 mg Metformin HCl (Metformin Hcl 500 Mg Tablet) 500 mg PO BEDTIME [facility] Last Admin: 04/26/24 20:44 Dose: 500 mg Pt Own (Cyclosporine ([Restasis] 1 Drop)) 1 drop EYE-BOTH BID [facility] Last Admin: 04/26/24 20:43 Dose: 1 drop Olanzapine (Olanzapine 2.5 Mg Tablet) 2.5 mg PO Q4H PRN PRN Reason: agitation/acute psychosis Simethicone (Simethicone 80 Mg Tab.Chew) 80 mg PO QIDWMHS PRN PRN Reason: bloating Last Admin: 04/26/24 20:44 Dose: 80 mg Sitagliptin Phosphate (Sitagliptin Phosphate 50 Mg Tablet) 50 mg PO DAILY [facility] Last Admin: 04/26/24 09:35 Dose: 50 mg Trazodone HCl (Trazodone Hcl 50 Mg Tablet) 50 mg PO BEDTIME MRX1 PRN PRN Reason: Insomnia Last Admin: 02/05/24 21:08 Dose: 50 mg Vitamin D (Cholecalciferol (Vitamin D3) 25 Mcg Tablet) 25 mcg PO DAILY [facility] Last Admin: 04/26/24 09:35 Dose: 25 mcg Zolpidem Tartrate (Zolpidem Tartrate 5 Mg Tablet) 5 mg PO BEDTIME [facility] Last Admin: 04/26/24 20:44 Dose: 5 mg Allergies Allergies Allergy/AdvReac Type Severity Reaction Status Date / Time codeine Allergy Unknown Verified 12/07/23 20:27 Assessment & Plan Assessment & Plan (1) Dementia with psychotic disturbance: Status: Acute Code(s): F03.92 - Unspecified dementia, unspecified severity, with psychotic disturbance Plan Mrs. Jin is a 83 year-old woman with hx of vascular dementia with delusions of having an affair and some paranoid delusions. Some insight that this may not be the case but pt very much believes and takes action based on delusion despite here reporting that it may not be happening. It is unclear report from [facility] as to suicidal ideation. no indication of imminent harm to self or others, but collateral information is pending from family. May consider antipsychotic. PLAN 1. Continue with same treatment. 2. Waiting for placement. 04/24/24- ? change re bowels continue to observe monitor for dehydration ongoing placement issues due to full care and dementia with psychosis 04/27/24 - ongoing pending placement- watch cough/wheezing any other sys call hospitalist to examine or get cxr ? atelectasis or aspiration- spends most of time in bed in day Patient educated on: medical condition Informed Consent: further education needed Reason for continued inpatient stay Substantial Risk for: inability to function, rapid decompensation and med/psych decompensation Time Spent With Patient Time: Total time managing care of this patient today ____ minutes.
[2024-04-27 09:21] VITALS: BP 139/65; PULSE 72; RESP 16; TEMP 37.1; O2SAT 95
[2024-04-27] MEDS: CYCLOSPORINE 1 EACH EYE-BOTH ×2 (09:23→20:42)
[2024-04-27] MEDS: Simethicone 80 MG TAB.CHEW PO ×2 (09:24→20:41)
[2024-04-27] MEDS: Memantine HCl 5 MG TABLET PO (09:24)
[2024-04-27] MEDS: allopurinoL 100 MG TABLET PO (09:24)
[2024-04-27] MEDS: Escitalopram Oxalate 10 MG TABLET PO (09:25)
[2024-04-27] MEDS: SITagliptin Phosphate 50 MG TABLET PO (09:25)
[2024-04-27] MEDS: amLODIPine Besylate 2.5 MG TABLET PO (09:25)
[2024-04-27] MEDS: Cholecalciferol (Vitamin D3) 25 MCG TABLET PO (09:25)
[2024-04-27] MEDS: Acetaminophen 325 MG TABLET 650 MG PO ×2 (09:26→20:42)
[2024-04-27] MEDS: Loratadine 10 MG TABLET PO (09:26)
[2024-04-27 13:59] LABS: Adenovirus PCR Not Detected (Not Detect.); Bordetella parapertussis PCR Not Detected (Not Detect.); Bordetella pertussis PCR Not Detected (Not Detect.); Chlamydia pneumoniae PCR Not Detected (Not Detect.); Coronavirus 229E PCR Not Detected (Not Detect.); Coronavirus HKU1 PCR Not Detected (Not Detect.); Coronavirus NL63 PCR Not Detected (Not Detect.); Coronavirus OC43 PCR Not Detected (Not Detect.); Human metapneumovirus PCR Not Detected (Not Detect.); Influenza A PCR Not Detected (Not Detect.); Influenza B PCR Not Detected (Not Detect.); Mycoplasma pneumoniae PCR Not Detected (Not Detect.); Parainfluenza 1 PCR Not Detected (Not Detect.); Parainfluenza 2 PCR Not Detected (Not Detect.); Parainfluenza 3 PCR Not Detected (Not Detect.); Parainfluenza 4 PCR Not Detected (Not Detect.); RSV PCR Not Detected (Not Detect.); Rhino/Enterovirus PCR Not Detected (Not Detect.)
[2024-04-27 14:11] LABS: SARS-CoV-2 PCR Not Detected (Not Detect.)
--- NOTE | 2024-04-27 14:14 | PC.NURSE ---
[facility] admissions counselor ordered an Albuterol inhaler and a respiratory panel which was obtained and negative. Pharmacy called for inhaler. Patient back to bed.
[2024-04-27] MEDS: guaiFENesin LA 600 MG TAB.ER.12H PO ×2 (14:48→20:42)
[2024-04-27] MEDS: Albuterol Sulfate 90 MCG 8 GM INHALER 2 PUFF INHALE (14:48)
[2024-04-27 20:00] VITALS: BP 134/63; PULSE 76; RESP 16; TEMP 36.1; O2SAT 97
[2024-04-27] MEDS: metFORMIN HCl 500 MG TABLET PO (20:42)
[2024-04-27] MEDS: Atorvastatin Calcium 10 MG TABLET PO (20:42)
[2024-04-27] MEDS: Donepezil HCl 5 MG TABLET PO (20:42)
[2024-04-27] MEDS: Zolpidem Tartrate 5 MG TABLET PO (20:42)
[2024-04-28] MEDS: Levothyroxine Sodium 88 MCG TABLET PO (06:15)
[2024-04-28 06:19] LABS: Glucose, Whole Blood 138 mg/dL (60-115)
[2024-04-28 07:55] VITALS: BP 121/64; PULSE 78; RESP 18; TEMP 36.4; O2SAT 97
[2024-04-28] MEDS: Simethicone 80 MG TAB.CHEW PO ×2 (08:28→20:34)
[2024-04-28] MEDS: CYCLOSPORINE 1 EACH EYE-BOTH ×2 (08:28→20:34)
[2024-04-28] MEDS: guaiFENesin LA 600 MG TAB.ER.12H PO ×2 (08:29→20:34)
[2024-04-28] MEDS: Acetaminophen 325 MG TABLET 650 MG PO ×2 (08:29→20:33)
[2024-04-28] MEDS: Loratadine 10 MG TABLET PO (08:29)
[2024-04-28] MEDS: Memantine HCl 5 MG TABLET PO (08:30)
[2024-04-28] MEDS: allopurinoL 100 MG TABLET PO (08:30)
[2024-04-28] MEDS: Escitalopram Oxalate 10 MG TABLET PO (08:30)
[2024-04-28] MEDS: SITagliptin Phosphate 50 MG TABLET PO (08:30)
[2024-04-28] MEDS: Cholecalciferol (Vitamin D3) 25 MCG TABLET PO (08:30)
[2024-04-28] MEDS: amLODIPine Besylate 2.5 MG TABLET PO (08:30)
--- NOTE | 2024-04-28 12:09 | P.PNPSI_ITS ---
Subjective Subjective Date of Service: 04/28/24 Reason For Visit: psychosis Subjective Notes: Conditional Voluntary Healthcare Proxy: Yes Guardianship: No Medical Problems Affecting Mental Status: Yes (dementia) Interim History: 83 yo reports she is doing fine- less congestion felt albuterol and mucinex helped- denies any psychiatric symptoms- hoping for placement soon- Medication Compliance: Yes Side effects from medications: No Attending Groups: No Review of Systems Acute medical concerns: No Review of Systems: recent cough/wheeze has not progressed and better today Mental Status Exam Mental Status Exam Patient Appearance: Appropriate Patient Orientation: Person, Place and Situation Level of Consciousness: Awake Patient Behavior: Appropriate Mood Description: Calm Affect Description: Appropriate Patient Cognition Impaired: Yes Ability to Follow Directions: Fair Speech Pattern: Clear Hallucinations: None Delusions: Not Present Thought Process: Intact and Goal Oriented Judgement: Fair Diagnostics Vital Signs (24Hr): Vital Signs - 24 hr 04/27/24 20:00 04/28/24 07:55 Temperature 97 F 97.6 F Pulse Rate 76 78 Respiratory Rate 16 18 Blood Pressure 134/63 121/64 Pulse Oximetry 97 97 Oxygen Delivery Method Room Air Room Air BMI result Body Mass Index 28.8 Labs 01/06/24 07:28 04/27/24 07:09 Labs: Laboratory Results - last 48 hr 04/27/24 04/27/24 04/27/24 06:20 07:09 12:30 Creatinine 1.43 H Estim Creat Clear Calc 30.3 Estimated GFR 35 POC Glucose 217 H Respiratory Panel Mcdonald See Note Adenovirus (Rapid PCR) Not Detected B.pert (TEM-PCR) Not Detected B.parapertussis DNA PCR Not Detected C. pneumoniae DNA (PCR) Not Detected Coronavirus OC43 (PCR) Not Detected Coronavirus HKU1 (PCR) Not Detected Coronavirus 229E (PCR) Not Detected Coronavirus NL63 (PCR) Not Detected Human Metapneumovir PCR Not Detected Influenza A (RT-PCR) Not Detected Influenza B (RT-PCR) Not Detected M. pneumoniae (PCR) Not Detected Parainfluenza 1 (PCR) Not Detected Parainfluenza 2 (PCR) Not Detected Parainfluenza 3 (PCR) Not Detected Parainfluenza 4 (PCR) Not Detected RSV (PCR) Not Detected Entero/Rhino (PCR) Not Detected SARS-CoV-2 RNA (RT-PCR) Not Detected 04/28/24 06:15 Creatinine Estim Creat Clear Calc Estimated GFR POC Glucose 138 H Respiratory Panel [facility]cd[facility] Adenovirus (Rapid PCR) B.pert (TEM-PCR) B.parapertussis DNA PCR C. pneumoniae DNA (PCR) Coronavirus OC43 (PCR) Coronavirus HKU1 (PCR) Coronavirus 229E (PCR) Coronavirus NL63 (PCR) Human Metapneumovir PCR Influenza A (RT-PCR) Influenza B (RT-PCR) M. pneumoniae (PCR) Parainfluenza 1 (PCR) Parainfluenza 2 (PCR) Parainfluenza 3 (PCR) Parainfluenza 4 (PCR) RSV (PCR) Entero/Rhino (PCR) SARS-CoV-2 RNA (RT-PCR) Medications Medications Current Medications Acetaminophen (Acetaminophen 325 Mg Tablet) 650 mg PO Q6H PRN PRN Reason: Headache/Pain Mild Scale (1-3) Last Admin: 04/28/24 08:29 Dose: 650 mg Al Hydroxide/Mg Hydroxide (Magnesium Hydrox/Alum Hydrox 30 Ml Oral.Susp) 30 ml PO Q6H PRN PRN Reason: Heartburn/Nausea Albuterol Sulfate (Albuterol Sulfate 90 Mcg 8 Gm Inhaler) 2 puff INHALE RQ6H PRN PRN Reason: Wheezing Last Admin: 04/27/24 14:48 Dose: 2 puff Allopurinol (Allopurinol 100 Mg Tablet) 100 mg PO DAILY [facility] Last Admin: 04/28/24 08:30 Dose: 100 mg Amlodipine Besylate (Amlodipine Besylate 2.5 Mg Tablet) 2.5 mg PO DAILY [facility]; Protocol Last Admin: 04/28/24 08:30 Dose: 2.5 mg Artificial Tears (Artificial Tears 15 Ml Drops) 2 drop EYE-BOTH Q4H PRN PRN Reason: Dry Eyes Last Admin: 04/14/24 21:38 Dose: 2 drop Atorvastatin Calcium (Atorvastatin Calcium 10 Mg Tablet) 10 mg PO BEDTIME [facility] Last Admin: 04/27/24 20:42 Dose: 10 mg Cyclobenzaprine HCl (Cyclobenzaprine Hcl 5 Mg Tablet) 5 mg PO TID PRN PRN Reason: Back spasms Donepezil HCl (Donepezil Hcl 5 Mg Tablet) 5 mg PO BEDTIME [facility] Last Admin: 04/27/24 20:42 Dose: 5 mg Escitalopram Oxalate (Escitalopram Oxalate 10 Mg Tablet) 10 mg PO DAILY [facility] Last Admin: 04/28/24 08:30 Dose: 10 mg Guaifenesin (Guaifenesin La 600 Mg Tab.Er.12h) 600 mg PO BID [facility] Last Admin: 04/28/24 08:29 Dose: 600 mg Levothyroxine Sodium (Levothyroxine Sodium 88 Mcg Tablet) 88 mcg PO DAILY@0600 [facility] Last Admin: 04/28/24 06:15 Dose: 88 mcg Lidocaine (Lidocaine 4 % Patch Adh..Patch) 1 patch TRANSDERMA DAILY [facility] Last Admin: 04/28/24 08:30 Dose: Not Given Loperamide HCl (Loperamide Hcl 2 Mg Capsule) 2 mg PO Q4H PRN PRN Reason: Loose Stool Last Admin: 04/24/24 10:06 Dose: 2 mg Loratadine (Loratadine 10 Mg Tablet) 10 mg PO DAILY PRN PRN Reason: seasonal allergies Last Admin: 04/28/24 08:29 Dose: 10 mg Magnesium Hydroxide (Milk Of Magnesia 30 Ml Oral.Susp) 30 ml PO DAILY PRN PRN Reason: Constipation Memantine (Memantine Hcl 5 Mg Tablet) 5 mg PO DAILY [facility] Last Admin: 04/28/24 08:30 Dose: 5 mg Metformin HCl (Metformin Hcl 500 Mg Tablet) 500 mg PO BEDTIME [facility] Last Admin: 04/27/24 20:42 Dose: 500 mg Pt Own (Cyclosporine ([Restasis] 1 Drop)) 1 drop EYE-BOTH BID [facility] Last Admin: 04/28/24 08:28 Dose: 1 drop Olanzapine (Olanzapine 2.5 Mg Tablet) 2.5 mg PO Q4H PRN PRN Reason: agitation/acute psychosis Simethicone (Simethicone 80 Mg Tab.Chew) 80 mg PO QIDWMHS PRN PRN Reason: bloating Last Admin: 04/28/24 08:28 Dose: 80 mg Sitagliptin Phosphate (Sitagliptin Phosphate 50 Mg Tablet) 50 mg PO DAILY [facility] Last Admin: 04/28/24 08:30 Dose: 50 mg Trazodone HCl (Trazodone Hcl 50 Mg Tablet) 50 mg PO BEDTIME MRX1 PRN PRN Reason: Insomnia Last Admin: 02/05/24 21:08 Dose: 50 mg Vitamin D (Cholecalciferol (Vitamin D3) 25 Mcg Tablet) 25 mcg PO DAILY [facility] Last Admin: 04/28/24 08:30 Dose: 25 mcg Zolpidem Tartrate (Zolpidem Tartrate 5 Mg Tablet) 5 mg PO BEDTIME [facility] Last Admin: 04/27/24 20:42 Dose: 5 mg Allergies Allergies Allergy/AdvReac Type Severity Reaction Status Date / Time codeine Allergy Unknown Verified 12/07/23 20:27 Assessment & Plan Assessment & Plan (1) Dementia with psychotic disturbance: Status: Acute Code(s): F03.92 - Unspecified dementia, unspecified severity, with psychotic disturbance Plan Mrs. Jin is a 83 year-old woman with hx of vascular dementia with delusions of having an affair and some paranoid delusions. Some insight that this may not be the case but pt very much believes and takes action based on delusion despite here reporting that it may not be happening. It is unclear report from [facility] as to suicidal ideation. no indication of imminent harm to self or others, but collateral information is pending from family. May consider antipsychotic. PLAN 1. Continue with same treatment. 2. Waiting for placement. 04/24/24- ? change re bowels continue to observe monitor for dehydration ongoing placement issues due to full care and dementia with psychosis 04/27/24 - ongoing pending placement- watch cough/wheezing any other sys call hospitalist to examine or get cxr ? atelectasis or aspiration- spends most of time in bed in day 04/28/24- doing better today cough/wheeze less- eating ok sleep ok,- awaiting placement Reason for continued inpatient stay Substantial Risk for: rapid decompensation and med/psych decompensation Time Spent With Patient Time: Total time managing care of this patient today ____ minutes.
[2024-04-28 20:00] VITALS: BP 119/57; PULSE 80; RESP 18; TEMP 36.1; O2SAT 95
[2024-04-28] MEDS: Donepezil HCl 5 MG TABLET PO (20:33)
[2024-04-28] MEDS: metFORMIN HCl 500 MG TABLET PO (20:33)
[2024-04-28] MEDS: Zolpidem Tartrate 5 MG TABLET PO (20:34)
[2024-04-28] MEDS: Atorvastatin Calcium 10 MG TABLET PO (20:34)
[2024-04-28] MEDS: Albuterol Sulfate 90 MCG 8 GM INHALER 2 PUFF INHALE (20:34)
[2024-04-29] MEDS: Levothyroxine Sodium 88 MCG TABLET PO (06:32)
[2024-04-29 07:45] VITALS: BP 121/75; PULSE 86; RESP 16; TEMP 36.2; O2SAT 94
[2024-04-29 08:40] VITALS: BP 121/75
[2024-04-29] MEDS: Escitalopram Oxalate 10 MG TABLET PO (08:40)
[2024-04-29] MEDS: allopurinoL 100 MG TABLET PO (08:40)
[2024-04-29] MEDS: guaiFENesin LA 600 MG TAB.ER.12H PO ×2 (08:40→21:20)
[2024-04-29] MEDS: Loratadine 10 MG TABLET PO (08:40)
[2024-04-29] MEDS: Acetaminophen 325 MG TABLET 650 MG PO ×2 (08:40→21:21)
[2024-04-29] MEDS: amLODIPine Besylate 2.5 MG TABLET PO (08:40)
[2024-04-29] MEDS: SITagliptin Phosphate 50 MG TABLET PO (08:40)
[2024-04-29] MEDS: Cholecalciferol (Vitamin D3) 25 MCG TABLET PO (08:40)
[2024-04-29] MEDS: Memantine HCl 5 MG TABLET PO (08:40)
[2024-04-29] MEDS: Simethicone 80 MG TAB.CHEW PO ×2 (08:40→21:21)
[2024-04-29] MEDS: CYCLOSPORINE 1 EACH EYE-BOTH ×2 (08:44→21:20)
--- NOTE | 2024-04-29 15:36 | P.PNPSI_ITS ---
Subjective Subjective Date of Service: 04/29/24 Reason For Visit: psychosis Subjective Notes: Conditional Voluntary Interim History: The nursing staff reported no changes in her mental status compliant with treatment. The social media director will come today to assess her. On interview the patient denies new symptoms, waiting for placement. Mental Status Exam Mental Status Exam Patient Appearance: Appropriate Patient Orientation: Person and Situation Level of Consciousness: Awake and Appropriate Patient Behavior: Guarded and Passive Mood Description: Withdrawn Affect Description: Constricted Patient Cognition Impaired: Yes Ability to Follow Directions: Good Speech Pattern: Clear Hallucinations: None Delusions: Ideas of Reference Thought Process: Distracted and Slowed Thinking Thought Content: positive for [place] and positive for Poverty of Content Judgement: Fair Diagnostics Vital Signs (24Hr): Vital Signs - 24 hr 04/28/24 20:00 04/29/24 07:45 04/29/24 08:40 Temperature 97.0 F 97.1 F Pulse Rate 80 86 Respiratory Rate 18 16 Blood Pressure 119/57 L 121/75 121/75 Pulse Oximetry 95 94 Oxygen Delivery Method Room Air Room Air BMI result Body Mass Index 28.8 Labs 01/06/24 07:28 04/27/24 07:09 Labs: Laboratory Results - last 48 hr 04/28/24 06:15 POC Glucose 138 H Medications Medications Current Medications Acetaminophen (Acetaminophen 325 Mg Tablet) 650 mg PO Q6H PRN PRN Reason: Headache/Pain Mild Scale (1-3) Last Admin: 04/29/24 08:40 Dose: 650 mg Al Hydroxide/Mg Hydroxide (Magnesium Hydrox/Alum Hydrox 30 Ml Oral.Susp) 30 ml PO Q6H PRN PRN Reason: Heartburn/Nausea Albuterol Sulfate (Albuterol Sulfate 90 Mcg 8 Gm Inhaler) 2 puff INHALE RQ6H PRN PRN Reason: Wheezing Last Admin: 04/28/24 20:34 Dose: 2 puff Allopurinol (Allopurinol 100 Mg Tablet) 100 mg PO DAILY [facility] Last Admin: 04/29/24 08:40 Dose: 100 mg Amlodipine Besylate (Amlodipine Besylate 2.5 Mg Tablet) 2.5 mg PO DAILY [facility]; Protocol Last Admin: 04/29/24 08:40 Dose: 2.5 mg Artificial Tears (Artificial Tears 15 Ml Drops) 2 drop EYE-BOTH Q4H PRN PRN Reason: Dry Eyes Last Admin: 04/14/24 21:38 Dose: 2 drop Atorvastatin Calcium (Atorvastatin Calcium 10 Mg Tablet) 10 mg PO BEDTIME [facility] Last Admin: 04/28/24 20:34 Dose: 10 mg Cyclobenzaprine HCl (Cyclobenzaprine Hcl 5 Mg Tablet) 5 mg PO TID PRN PRN Reason: Back spasms Donepezil HCl (Donepezil Hcl 5 Mg Tablet) 5 mg PO BEDTIME [facility] Last Admin: 04/28/24 20:33 Dose: 5 mg Escitalopram Oxalate (Escitalopram Oxalate 10 Mg Tablet) 10 mg PO DAILY [facility] Last Admin: 04/29/24 08:40 Dose: 10 mg Guaifenesin (Guaifenesin La 600 Mg Tab.Er.12h) 600 mg PO BID [facility] Last Admin: 04/29/24 08:40 Dose: 600 mg Levothyroxine Sodium (Levothyroxine Sodium 88 Mcg Tablet) 88 mcg PO DAILY@0600 [facility] Last Admin: 04/29/24 06:32 Dose: 88 mcg Lidocaine (Lidocaine 4 % Patch Adh..Patch) 1 patch TRANSDERMA DAILY [facility] Last Admin: 04/29/24 08:44 Dose: Not Given Loperamide HCl (Loperamide Hcl 2 Mg Capsule) 2 mg PO Q4H PRN PRN Reason: Loose Stool Last Admin: 04/24/24 10:06 Dose: 2 mg Loratadine (Loratadine 10 Mg Tablet) 10 mg PO DAILY PRN PRN Reason: seasonal allergies Last Admin: 04/29/24 08:40 Dose: 10 mg Magnesium Hydroxide (Milk Of Magnesia 30 Ml Oral.Susp) 30 ml PO DAILY PRN PRN Reason: Constipation Memantine (Memantine Hcl 5 Mg Tablet) 5 mg PO DAILY [facility] Last Admin: 04/29/24 08:40 Dose: 5 mg Metformin HCl (Metformin Hcl 500 Mg Tablet) 500 mg PO BEDTIME [facility] Last Admin: 04/28/24 20:33 Dose: 500 mg Pt Own (Cyclosporine ([Restasis] 1 Drop)) 1 drop EYE-BOTH BID [facility] Last Admin: 04/29/24 08:44 Dose: 1 drop Olanzapine (Olanzapine 2.5 Mg Tablet) 2.5 mg PO Q4H PRN PRN Reason: agitation/acute psychosis Simethicone (Simethicone 80 Mg Tab.Chew) 80 mg PO QIDWMHS PRN PRN Reason: bloating Last Admin: 04/29/24 08:40 Dose: 80 mg Sitagliptin Phosphate (Sitagliptin Phosphate 50 Mg Tablet) 50 mg PO DAILY [facility] Last Admin: 04/29/24 08:40 Dose: 50 mg Trazodone HCl (Trazodone Hcl 50 Mg Tablet) 50 mg PO BEDTIME MRX1 PRN PRN Reason: Insomnia Last Admin: 02/05/24 21:08 Dose: 50 mg Vitamin D (Cholecalciferol (Vitamin D3) 25 Mcg Tablet) 25 mcg PO DAILY [facility] Last Admin: 04/29/24 08:40 Dose: 25 mcg Zolpidem Tartrate (Zolpidem Tartrate 5 Mg Tablet) 5 mg PO BEDTIME [facility] Last Admin: 04/28/24 20:34 Dose: 5 mg Allergies Allergies Allergy/AdvReac Type Severity Reaction Status Date / Time codeine Allergy Unknown Verified 12/07/23 20:27 Assessment & Plan Assessment & Plan (1) Dementia with psychotic disturbance: Status: Acute Code(s): F03.92 - Unspecified dementia, unspecified severity, with psychotic disturbance Plan Mrs. Jin is a 83 year-old woman with hx of vascular dementia with delusions of having an affair and some paranoid delusions. Some insight that this may not be the case but pt very much believes and takes action based on delusion despite here reporting that it may not be happening. It is unclear report from [facility] as to suicidal ideation. no indication of imminent harm to self or others, but collateral information is pending from family. May consider antipsychotic. PLAN 1. Continue with same treatment. 2. Waiting for placement. Reason for continued inpatient stay Substantial Risk for: inability to function, rapid decompensation and med/psych decompensation Time Spent With Patient Time: Total time managing care of this patient today __20__ minutes.
[2024-04-29 19:47] VITALS: BP 123/75; PULSE 86; TEMP 36.6; O2SAT 98
[2024-04-29] MEDS: metFORMIN HCl 500 MG TABLET PO (21:20)
[2024-04-29] MEDS: Donepezil HCl 5 MG TABLET PO (21:20)
[2024-04-29] MEDS: Zolpidem Tartrate 5 MG TABLET PO (21:20)
[2024-04-29] MEDS: Atorvastatin Calcium 10 MG TABLET PO (21:20)
[2024-04-29] MEDS: Albuterol Sulfate 90 MCG 8 GM INHALER 2 PUFF INHALE (21:26)
[2024-04-30] MEDS: Levothyroxine Sodium 88 MCG TABLET PO (06:09)
[2024-04-30 09:20] VITALS: BP 113/58; PULSE 64; RESP 18; TEMP 36.5; O2SAT 97
[2024-04-30] MEDS: allopurinoL 100 MG TABLET PO (09:22)
[2024-04-30] MEDS: Escitalopram Oxalate 10 MG TABLET PO (09:22)
[2024-04-30] MEDS: amLODIPine Besylate 2.5 MG TABLET PO (09:22)
[2024-04-30] MEDS: Cholecalciferol (Vitamin D3) 25 MCG TABLET PO (09:23)
[2024-04-30] MEDS: guaiFENesin LA 600 MG TAB.ER.12H PO ×2 (09:23→19:49)
[2024-04-30] MEDS: SITagliptin Phosphate 50 MG TABLET PO (09:23)
[2024-04-30] MEDS: Memantine HCl 5 MG TABLET PO (09:23)
[2024-04-30] MEDS: Acetaminophen 325 MG TABLET 650 MG PO ×2 (09:24→19:48)
--- NOTE | 2024-04-30 15:19 | HO.PSYCHPN ---
Subjective Subjective Date of Service: 04/30/24 Reason For Visit: psychosis Subjective Notes: Conditional Voluntary Interim History: The nursing staff reported no changes in her mental status cooperative pleasant. She slept 7 hours. The transition social worker reported that were waiting for financial clearance. On interview the patient denies new symptoms waiting for placement Mental Status Exam Mental Status Exam Patient Appearance: Appropriate Patient Orientation: Person and Situation Level of Consciousness: Awake and Appropriate Patient Behavior: Guarded and Passive Mood Description: Withdrawn Affect Description: Constricted Patient Cognition Impaired: Yes Ability to Follow Directions: Good Speech Pattern: Clear Hallucinations: None Delusions: Not Present Thought Process: Distracted and Slowed Thinking Thought Content: positive for [place] and positive for Poverty of Content Judgement: Fair Diagnostics Vital Signs (24Hr): Vital Signs - 24 hr 04/29/24 19:47 04/30/24 09:20 Temperature 97.9 F 97.7 F Pulse Rate 86 64 Respiratory Rate 18 Blood Pressure 123/75 113/58 L Pulse Oximetry 98 97 Oxygen Delivery Method Room Air Room Air BMI result Body Mass Index 28.8 Labs 01/06/24 07:28 04/27/24 07:09 Medications Medications Current Medications Acetaminophen (Acetaminophen 325 Mg Tablet) 650 mg PO Q6H PRN PRN Reason: Headache/Pain Mild Scale (1-3) Last Admin: 04/30/24 09:24 Dose: 650 mg Al Hydroxide/Mg Hydroxide (Magnesium Hydrox/Alum Hydrox 30 Ml Oral.Susp) 30 ml PO Q6H PRN PRN Reason: Heartburn/Nausea Albuterol Sulfate (Albuterol Sulfate 90 Mcg 8 Gm Inhaler) 2 puff INHALE RQ6H PRN PRN Reason: Wheezing Last Admin: 04/29/24 21:26 Dose: 2 puff Allopurinol (Allopurinol 100 Mg Tablet) 100 mg PO DAILY [facility] Last Admin: 04/30/24 09:22 Dose: 100 mg Amlodipine Besylate (Amlodipine Besylate 2.5 Mg Tablet) 2.5 mg PO DAILY [facility]; Protocol Last Admin: 04/30/24 09:22 Dose: 2.5 mg Artificial Tears (Artificial Tears 15 Ml Drops) 2 drop EYE-BOTH Q4H PRN PRN Reason: Dry Eyes Last Admin: 04/14/24 21:38 Dose: 2 drop Atorvastatin Calcium (Atorvastatin Calcium 10 Mg Tablet) 10 mg PO BEDTIME [facility] Last Admin: 04/29/24 21:20 Dose: 10 mg Cyclobenzaprine HCl (Cyclobenzaprine Hcl 5 Mg Tablet) 5 mg PO TID PRN PRN Reason: Back spasms Donepezil HCl (Donepezil Hcl 5 Mg Tablet) 5 mg PO BEDTIME [facility] Last Admin: 04/29/24 21:20 Dose: 5 mg Escitalopram Oxalate (Escitalopram Oxalate 10 Mg Tablet) 10 mg PO DAILY [facility] Last Admin: 04/30/24 09:22 Dose: 10 mg Guaifenesin (Guaifenesin La 600 Mg Tab.Er.12h) 600 mg PO BID [facility] Last Admin: 04/30/24 09:23 Dose: 600 mg Levothyroxine Sodium (Levothyroxine Sodium 88 Mcg Tablet) 88 mcg PO DAILY@0600 [facility] Last Admin: 04/30/24 06:09 Dose: 88 mcg Loperamide HCl (Loperamide Hcl 2 Mg Capsule) 2 mg PO Q4H PRN PRN Reason: Loose Stool Last Admin: 04/24/24 10:06 Dose: 2 mg Loratadine (Loratadine 10 Mg Tablet) 10 mg PO DAILY PRN PRN Reason: seasonal allergies Last Admin: 04/29/24 08:40 Dose: 10 mg Magnesium Hydroxide (Milk Of Magnesia 30 Ml Oral.Susp) 30 ml PO DAILY PRN PRN Reason: Constipation Memantine (Memantine Hcl 5 Mg Tablet) 5 mg PO DAILY [facility] Last Admin: 04/30/24 09:23 Dose: 5 mg Metformin HCl (Metformin Hcl 500 Mg Tablet) 500 mg PO BEDTIME [facility] Last Admin: 04/29/24 21:20 Dose: 500 mg Pt Own (Cyclosporine ([Restasis] 1 Drop)) 1 drop EYE-BOTH BID [facility] Last Admin: 04/30/24 09:23 Dose: Not Given Olanzapine (Olanzapine 2.5 Mg Tablet) 2.5 mg PO Q4H PRN PRN Reason: agitation/acute psychosis Simethicone (Simethicone 80 Mg Tab.Chew) 80 mg PO QIDWMHS PRN PRN Reason: bloating Last Admin: 04/29/24 21:21 Dose: 80 mg Sitagliptin Phosphate (Sitagliptin Phosphate 50 Mg Tablet) 50 mg PO DAILY [facility] Last Admin: 04/30/24 09:23 Dose: 50 mg Trazodone HCl (Trazodone Hcl 50 Mg Tablet) 50 mg PO BEDTIME MRX1 PRN PRN Reason: Insomnia Last Admin: 02/05/24 21:08 Dose: 50 mg Vitamin D (Cholecalciferol (Vitamin D3) 25 Mcg Tablet) 25 mcg PO DAILY [facility] Last Admin: 04/30/24 09:23 Dose: 25 mcg Zolpidem Tartrate (Zolpidem Tartrate 5 Mg Tablet) 5 mg PO BEDTIME [facility] Last Admin: 04/29/24 21:20 Dose: 5 mg Allergies Allergies Allergy/AdvReac Type Severity Reaction Status Date / Time codeine Allergy Unknown Verified 12/07/23 20:27 Assessment & Plan Assessment & Plan (1) Dementia with psychotic disturbance: Status: Acute Code(s): F03.92 - Unspecified dementia, unspecified severity, with psychotic disturbance Plan Mrs. Jin is a 83 year-old woman with hx of vascular dementia with delusions of having an affair and some paranoid delusions. Some insight that this may not be the case but pt very much believes and takes action based on delusion despite here reporting that it may not be happening. It is unclear report from [facility] as to suicidal ideation. no indication of imminent harm to self or others, but collateral information is pending from family. May consider antipsychotic. PLAN 1. Continue with same treatment. 2. Waiting for placement. Reason for continued inpatient stay Substantial Risk for: inability to function, rapid decompensation and med/psych decompensation Time Spent With Patient Time: Total time managing care of this patient today __20__ minutes.
[2024-04-30] MEDS: Donepezil HCl 5 MG TABLET PO (19:48)
[2024-04-30] MEDS: metFORMIN HCl 500 MG TABLET PO (19:48)
[2024-04-30] MEDS: Atorvastatin Calcium 10 MG TABLET PO (19:49)
[2024-04-30] MEDS: Loratadine 10 MG TABLET PO (19:49)
[2024-04-30] MEDS: Simethicone 80 MG TAB.CHEW PO (19:49)
[2024-04-30] MEDS: Zolpidem Tartrate 5 MG TABLET PO (19:50)
[2024-04-30 20:42] VITALS: BP 151/67; PULSE 95; RESP 16; TEMP 36.6; O2SAT 97
[2024-05-01] MEDS: Levothyroxine Sodium 88 MCG TABLET PO (05:51)
[2024-05-01] MEDS: Loratadine 10 MG TABLET PO (06:40)
[2024-05-01] MEDS: Albuterol Sulfate 90 MCG 8 GM INHALER 2 PUFF INHALE ×2 (06:41→19:31)
[2024-05-01] MEDS: Artificial Tears 15 ML DROPS 2 DROP EYE-BOTH ×2 (06:44→19:31)
[2024-05-01 08:05] VITALS: BP 120/68; PULSE 91; RESP 18; TEMP 36.8; O2SAT 94
[2024-05-01] MEDS: amLODIPine Besylate 2.5 MG TABLET PO (08:34)
[2024-05-01] MEDS: Simethicone 80 MG TAB.CHEW PO ×2 (08:34→19:30)
[2024-05-01] MEDS: Memantine HCl 5 MG TABLET PO (08:34)
[2024-05-01] MEDS: Cholecalciferol (Vitamin D3) 25 MCG TABLET PO (08:34)
[2024-05-01] MEDS: guaiFENesin LA 600 MG TAB.ER.12H PO ×2 (08:34→19:31)
[2024-05-01] MEDS: allopurinoL 100 MG TABLET PO (08:34)
[2024-05-01] MEDS: SITagliptin Phosphate 50 MG TABLET PO (08:34)
[2024-05-01] MEDS: Acetaminophen 325 MG TABLET 650 MG PO ×2 (08:34→19:30)
[2024-05-01] MEDS: Escitalopram Oxalate 10 MG TABLET PO (08:34)
--- NOTE | 2024-05-01 13:19 | HO.PSYCHPN ---
Subjective Subjective Date of Service: 05/01/24 Reason For Visit: psychosis Subjective Notes: Conditional Voluntary Interim History: The nursing staff reported no changes in mental status slept 8 hours. On interview the patient denies new symptoms pleasant cooperative. Waiting for placement. Mental Status Exam Mental Status Exam Patient Appearance: Appropriate Patient Orientation: Person and Situation Level of Consciousness: Awake and Appropriate Patient Behavior: Guarded and Passive Mood Description: Withdrawn Affect Description: Constricted Patient Cognition Impaired: Yes Ability to Follow Directions: Good Speech Pattern: Clear Hallucinations: None Delusions: Not Present Thought Process: Distracted and Slowed Thinking Thought Content: positive for [place] and positive for Poverty of Content Judgement: Fair Diagnostics Vital Signs (24Hr): Vital Signs - 24 hr 04/30/24 20:42 05/01/24 08:05 Temperature 97.8 F 98.2 F Pulse Rate 95 91 Respiratory Rate 16 18 Blood Pressure 151/67 H 120/68 Pulse Oximetry 97 94 Oxygen Delivery Method Room Air Room Air BMI result Body Mass Index 28.8 Labs 01/06/24 07:28 04/27/24 07:09 Medications Medications Current Medications Acetaminophen (Acetaminophen 325 Mg Tablet) 650 mg PO Q6H PRN PRN Reason: Headache/Pain Mild Scale (1-3) Last Admin: 05/01/24 08:34 Dose: 650 mg Al Hydroxide/Mg Hydroxide (Magnesium Hydrox/Alum Hydrox 30 Ml Oral.Susp) 30 ml PO Q6H PRN PRN Reason: Heartburn/Nausea Albuterol Sulfate (Albuterol Sulfate 90 Mcg 8 Gm Inhaler) 2 puff INHALE RQ6H PRN PRN Reason: Wheezing Last Admin: 05/01/24 06:41 Dose: 2 puff Allopurinol (Allopurinol 100 Mg Tablet) 100 mg PO DAILY [facility] Last Admin: 05/01/24 08:34 Dose: 100 mg Amlodipine Besylate (Amlodipine Besylate 2.5 Mg Tablet) 2.5 mg PO DAILY [facility]; Protocol Last Admin: 05/01/24 08:34 Dose: 2.5 mg Artificial Tears (Artificial Tears 15 Ml Drops) 2 drop EYE-BOTH Q4H PRN PRN Reason: Dry Eyes Last Admin: 05/01/24 06:44 Dose: 2 drop Atorvastatin Calcium (Atorvastatin Calcium 10 Mg Tablet) 10 mg PO BEDTIME [facility] Last Admin: 04/30/24 19:49 Dose: 10 mg Cyclobenzaprine HCl (Cyclobenzaprine Hcl 5 Mg Tablet) 5 mg PO TID PRN PRN Reason: Back spasms Donepezil HCl (Donepezil Hcl 5 Mg Tablet) 5 mg PO BEDTIME [facility] Last Admin: 04/30/24 19:48 Dose: 5 mg Escitalopram Oxalate (Escitalopram Oxalate 10 Mg Tablet) 10 mg PO DAILY [facility] Last Admin: 05/01/24 08:34 Dose: 10 mg Guaifenesin (Guaifenesin La 600 Mg Tab.Er.12h) 600 mg PO BID [facility] Last Admin: 05/01/24 08:34 Dose: 600 mg Levothyroxine Sodium (Levothyroxine Sodium 88 Mcg Tablet) 88 mcg PO DAILY@0600 [facility] Last Admin: 05/01/24 05:51 Dose: 88 mcg Loperamide HCl (Loperamide Hcl 2 Mg Capsule) 2 mg PO Q4H PRN PRN Reason: Loose Stool Last Admin: 04/24/24 10:06 Dose: 2 mg Loratadine (Loratadine 10 Mg Tablet) 10 mg PO DAILY PRN PRN Reason: seasonal allergies Last Admin: 05/01/24 06:40 Dose: 10 mg Magnesium Hydroxide (Milk Of Magnesia 30 Ml Oral.Susp) 30 ml PO DAILY PRN PRN Reason: Constipation Memantine (Memantine Hcl 5 Mg Tablet) 5 mg PO DAILY [facility] Last Admin: 05/01/24 08:34 Dose: 5 mg Metformin HCl (Metformin Hcl 500 Mg Tablet) 500 mg PO BEDTIME [facility] Last Admin: 04/30/24 19:48 Dose: 500 mg Pt Own (Cyclosporine ([Restasis] 1 Drop)) 1 drop EYE-BOTH BID [facility] Last Admin: 05/01/24 08:35 Dose: Not Given Olanzapine (Olanzapine 2.5 Mg Tablet) 2.5 mg PO Q4H PRN PRN Reason: agitation/acute psychosis Simethicone (Simethicone 80 Mg Tab.Chew) 80 mg PO QIDWMHS PRN PRN Reason: bloating Last Admin: 05/01/24 08:34 Dose: 80 mg Sitagliptin Phosphate (Sitagliptin Phosphate 50 Mg Tablet) 50 mg PO DAILY [facility] Last Admin: 05/01/24 08:34 Dose: 50 mg Trazodone HCl (Trazodone Hcl 50 Mg Tablet) 50 mg PO BEDTIME MRX1 PRN PRN Reason: Insomnia Last Admin: 10/14/24 21:08 Dose: 50 mg Vitamin D (Cholecalciferol (Vitamin D3) 25 Mcg Tablet) 25 mcg PO DAILY [facility] Last Admin: 05/01/24 08:34 Dose: 25 mcg Zolpidem Tartrate (Zolpidem Tartrate 5 Mg Tablet) 5 mg PO BEDTIME [facility] Last Admin: 04/30/24 19:50 Dose: 5 mg Allergies Allergies Allergy/AdvReac Type Severity Reaction Status Date / Time codeine Allergy Unknown Verified 12/07/23 20:27 Assessment & Plan Assessment & Plan (1) Dementia with psychotic disturbance: Status: Acute Code(s): F03.92 - Unspecified dementia, unspecified severity, with psychotic disturbance Plan Mrs. Jin is a 83 year-old woman with hx of vascular dementia with delusions of having an affair and some paranoid delusions. Some insight that this may not be the case but pt very much believes and takes action based on delusion despite here reporting that it may not be happening. It is unclear report from [facility] as to suicidal ideation. no indication of imminent harm to self or others, but collateral information is pending from family. May consider antipsychotic. PLAN 1. Continue with same treatment. 2. Waiting for placement. Reason for continued inpatient stay Substantial Risk for: inability to function, rapid decompensation and med/psych decompensation Time Spent With Patient Time: Total time managing care of this patient today _20___ minutes.
[2024-05-01] MEDS: metFORMIN HCl 500 MG TABLET PO (19:30)
[2024-05-01] MEDS: Zolpidem Tartrate 5 MG TABLET PO (19:31)
[2024-05-01] MEDS: Atorvastatin Calcium 10 MG TABLET PO (19:31)
[2024-05-01] MEDS: Donepezil HCl 5 MG TABLET PO (19:31)
[2024-05-01 20:00] VITALS: BP 112/56; PULSE 82; TEMP 35.6; O2SAT 98
[2024-05-02] MEDS: Levothyroxine Sodium 88 MCG TABLET PO (06:10)
[2024-05-02 07:00] VITALS: BMI 34.3
[2024-05-02 08:00] VITALS: BP 112/66; PULSE 84; RESP 18; TEMP 36.8; O2SAT 98
[2024-05-02] MEDS: Escitalopram Oxalate 10 MG TABLET PO (08:21)
[2024-05-02] MEDS: Memantine HCl 5 MG TABLET PO (08:21)
[2024-05-02] MEDS: guaiFENesin LA 600 MG TAB.ER.12H PO ×2 (08:21→20:03)
[2024-05-02] MEDS: Acetaminophen 325 MG TABLET 650 MG PO ×2 (08:21→20:03)
[2024-05-02] MEDS: Artificial Tears 15 ML DROPS 2 DROP EYE-BOTH ×2 (08:21→20:03)
[2024-05-02] MEDS: SITagliptin Phosphate 50 MG TABLET PO (08:21)
[2024-05-02] MEDS: allopurinoL 100 MG TABLET PO (08:22)
[2024-05-02] MEDS: amLODIPine Besylate 2.5 MG TABLET PO (08:22)
[2024-05-02] MEDS: Cholecalciferol (Vitamin D3) 25 MCG TABLET PO (08:22)
[2024-05-02] MEDS: Simethicone 80 MG TAB.CHEW PO ×2 (08:22→20:03)
--- NOTE | 2024-05-02 15:36 | HO.PSYCHPN ---
Subjective Subjective Date of Service: 05/02/24 Reason For Visit: psychosis Subjective Notes: Conditional Voluntary Interim History: The nursing staff reported no changes in mental status cooperative pleasant. She slept 8 hours. The social media sr strategy manager reported finally there is financial clearance most likely to be discharged next week. On interview the patient denies new symptoms waiting for placement. Mental Status Exam Mental Status Exam Patient Appearance: Appropriate Patient Orientation: Person and Situation Level of Consciousness: Awake Patient Behavior: Cooperative Mood Description: Calm Affect Description: Constricted Patient Cognition Impaired: Yes Ability to Follow Directions: Good Speech Pattern: Clear Hallucinations: None Delusions: Not Present Thought Process: Distracted Thought Content: positive for [place] and positive for Poverty of Content Judgement: Fair Diagnostics Vital Signs (24Hr): Vital Signs - 24 hr 05/01/24 20:00 05/02/24 08:00 Temperature 96.0 F L 98.2 F Pulse Rate 82 84 Respiratory Rate 18 Blood Pressure 112/56 L 112/66 Pulse Oximetry 98 98 Oxygen Delivery Method Room Air Room Air BMI result Body Mass Index 28.8 Labs 01/06/24 07:28 04/27/24 07:09 Medications Medications Current Medications Acetaminophen (Acetaminophen 325 Mg Tablet) 650 mg PO Q6H PRN PRN Reason: Headache/Pain Mild Scale (1-3) Last Admin: 05/02/24 08:21 Dose: 650 mg Al Hydroxide/Mg Hydroxide (Magnesium Hydrox/Alum Hydrox 30 Ml Oral.Susp) 30 ml PO Q6H PRN PRN Reason: Heartburn/Nausea Albuterol Sulfate (Albuterol Sulfate 90 Mcg 8 Gm Inhaler) 2 puff INHALE RQ6H PRN PRN Reason: Wheezing Last Admin: 05/01/24 19:31 Dose: 2 puff Allopurinol (Allopurinol 100 Mg Tablet) 100 mg PO DAILY [facility] Last Admin: 05/02/24 08:22 Dose: 100 mg Amlodipine Besylate (Amlodipine Besylate 2.5 Mg Tablet) 2.5 mg PO DAILY [facility]; Protocol Last Admin: 05/02/24 08:22 Dose: 2.5 mg Artificial Tears (Artificial Tears 15 Ml Drops) 2 drop EYE-BOTH Q4H PRN PRN Reason: Dry Eyes Last Admin: 05/02/24 08:21 Dose: 2 drop Atorvastatin Calcium (Atorvastatin Calcium 10 Mg Tablet) 10 mg PO BEDTIME [facility] Last Admin: 05/01/24 19:31 Dose: 10 mg Cyclobenzaprine HCl (Cyclobenzaprine Hcl 5 Mg Tablet) 5 mg PO TID PRN PRN Reason: Back spasms Donepezil HCl (Donepezil Hcl 5 Mg Tablet) 5 mg PO BEDTIME [facility] Last Admin: 05/01/24 19:31 Dose: 5 mg Escitalopram Oxalate (Escitalopram Oxalate 10 Mg Tablet) 10 mg PO DAILY [facility] Last Admin: 05/02/24 08:21 Dose: 10 mg Guaifenesin (Guaifenesin La 600 Mg Tab.Er.12h) 600 mg PO BID [facility] Last Admin: 05/02/24 08:21 Dose: 600 mg Levothyroxine Sodium (Levothyroxine Sodium 88 Mcg Tablet) 88 mcg PO DAILY@0600 [facility] Last Admin: 05/02/24 06:10 Dose: 88 mcg Loperamide HCl (Loperamide Hcl 2 Mg Capsule) 2 mg PO Q4H PRN PRN Reason: Loose Stool Last Admin: 04/24/24 10:06 Dose: 2 mg Loratadine (Loratadine 10 Mg Tablet) 10 mg PO DAILY PRN PRN Reason: seasonal allergies Last Admin: 05/01/24 06:40 Dose: 10 mg Magnesium Hydroxide (Milk Of Magnesia 30 Ml Oral.Susp) 30 ml PO DAILY PRN PRN Reason: Constipation Memantine (Memantine Hcl 5 Mg Tablet) 5 mg PO DAILY [facility] Last Admin: 05/02/24 08:21 Dose: 5 mg Metformin HCl (Metformin Hcl 500 Mg Tablet) 500 mg PO BEDTIME [facility] Last Admin: 05/01/24 19:30 Dose: 500 mg Pt Own (Cyclosporine ([Restasis] 1 Drop)) 1 drop EYE-BOTH BID [facility] Last Admin: 05/02/24 08:23 Dose: Not Given Olanzapine (Olanzapine 2.5 Mg Tablet) 2.5 mg PO Q4H PRN PRN Reason: agitation/acute psychosis Simethicone (Simethicone 80 Mg Tab.Chew) 80 mg PO QIDWMHS PRN PRN Reason: bloating Last Admin: 05/02/24 08:22 Dose: 80 mg Sitagliptin Phosphate (Sitagliptin Phosphate 50 Mg Tablet) 50 mg PO DAILY [facility] Last Admin: 05/02/24 08:21 Dose: 50 mg Trazodone HCl (Trazodone Hcl 50 Mg Tablet) 50 mg PO BEDTIME MRX1 PRN PRN Reason: Insomnia Last Admin: 02/05/24 21:08 Dose: 50 mg Vitamin D (Cholecalciferol (Vitamin D3) 25 Mcg Tablet) 25 mcg PO DAILY [facility] Last Admin: 05/02/24 08:22 Dose: 25 mcg Zolpidem Tartrate (Zolpidem Tartrate 5 Mg Tablet) 5 mg PO BEDTIME [facility] Last Admin: 05/01/24 19:31 Dose: 5 mg Allergies Allergies Allergy/AdvReac Type Severity Reaction Status Date / Time codeine Allergy Unknown Verified 12/07/23 20:27 Assessment & Plan Assessment & Plan (1) Dementia with psychotic disturbance: Status: Acute Code(s): F03.92 - Unspecified dementia, unspecified severity, with psychotic disturbance Plan Mrs. Jin is a 83 year-old woman with hx of vascular dementia with delusions of having an affair and some paranoid delusions. Some insight that this may not be the case but pt very much believes and takes action based on delusion despite here reporting that it may not be happening. It is unclear report from [facility] as to suicidal ideation. no indication of imminent harm to self or others, but collateral information is pending from family. May consider antipsychotic. PLAN 1. Continue with same treatment. 2. Waiting for placement. Reason for continued inpatient stay Substantial Risk for: inability to function, rapid decompensation and med/psych decompensation Time Spent With Patient Time: Total time managing care of this patient today __20__ minutes.
[2024-05-02 20:00] VITALS: BP 139/64; PULSE 81; RESP 16; TEMP 36.1; O2SAT 98
[2024-05-02] MEDS: metFORMIN HCl 500 MG TABLET PO (20:03)
[2024-05-02] MEDS: Albuterol Sulfate 90 MCG 8 GM INHALER 2 PUFF INHALE (20:03)
[2024-05-02] MEDS: Donepezil HCl 5 MG TABLET PO (20:03)
[2024-05-02] MEDS: Atorvastatin Calcium 10 MG TABLET PO (20:03)
[2024-05-02] MEDS: Loratadine 10 MG TABLET PO (20:03)
[2024-05-02] MEDS: Zolpidem Tartrate 5 MG TABLET PO (20:03)
[2024-05-03] MEDS: Levothyroxine Sodium 88 MCG TABLET PO (06:27)
[2024-05-03 08:00] VITALS: BP 133/62; PULSE 82; RESP 18; TEMP 36.2; O2SAT 98
[2024-05-03] MEDS: Acetaminophen 325 MG TABLET 650 MG PO ×2 (08:57→19:57)
[2024-05-03] MEDS: amLODIPine Besylate 2.5 MG TABLET PO (08:57)
[2024-05-03] MEDS: Cholecalciferol (Vitamin D3) 25 MCG TABLET PO (08:57)
[2024-05-03] MEDS: SITagliptin Phosphate 50 MG TABLET PO (08:57)
[2024-05-03] MEDS: Simethicone 80 MG TAB.CHEW PO ×2 (08:57→19:57)
[2024-05-03] MEDS: Escitalopram Oxalate 10 MG TABLET PO (08:57)
[2024-05-03] MEDS: allopurinoL 100 MG TABLET PO (08:57)
[2024-05-03] MEDS: guaiFENesin LA 600 MG TAB.ER.12H PO ×2 (08:58→19:57)
[2024-05-03] MEDS: Albuterol Sulfate 90 MCG 8 GM INHALER 2 PUFF INHALE (08:58)
[2024-05-03] MEDS: Memantine HCl 5 MG TABLET PO (08:58)
--- NOTE | 2024-05-03 15:44 | P.PNPSI_ITS ---
Subjective Subjective Date of Service: 05/03/24 Reason For Visit: psychosis Subjective Notes: Conditional Voluntary Interim History: The nursing staff reported no changes in her mental status cooperative pleasant. The social and political studies professor reported that finally she is going to be transferred next Monday to the longterm facility. On interview the patient denies new symptoms waiting for placement. Mental Status Exam Mental Status Exam Patient Appearance: Well Grooomed and Appropriate Patient Orientation: Person and Situation Level of Consciousness: Awake and Appropriate Patient Behavior: Cooperative and Passive Mood Description: Calm Affect Description: Constricted Patient Cognition Impaired: Yes Ability to Follow Directions: Good Speech Pattern: Clear Hallucinations: None Delusions: Not Present Thought Process: Distracted and Slowed Thinking Thought Content: positive for Circumstantial Judgement: Fair Diagnostics Vital Signs (24Hr): Vital Signs - 24 hr 05/02/24 20:00 05/03/24 08:00 Temperature 97 F 97.2 F Pulse Rate 81 82 Respiratory Rate 16 18 Blood Pressure 139/64 133/62 Pulse Oximetry 98 98 Oxygen Delivery Method Room Air Room Air BMI result Body Mass Index 34.3 Labs 01/06/24 07:28 04/27/24 07:09 Medications Medications Current Medications Acetaminophen (Acetaminophen 325 Mg Tablet) 650 mg PO Q6H PRN PRN Reason: Headache/Pain Mild Scale (1-3) Last Admin: 05/03/24 08:57 Dose: 650 mg Al Hydroxide/Mg Hydroxide (Magnesium Hydrox/Alum Hydrox 30 Ml Oral.Susp) 30 ml PO Q6H PRN PRN Reason: Heartburn/Nausea Albuterol Sulfate (Albuterol Sulfate 90 Mcg 8 Gm Inhaler) 2 puff INHALE RQ6H PRN PRN Reason: Wheezing Last Admin: 05/03/24 08:58 Dose: 2 puff Allopurinol (Allopurinol 100 Mg Tablet) 100 mg PO DAILY [facility] Last Admin: 05/03/24 08:57 Dose: 100 mg Amlodipine Besylate (Amlodipine Besylate 2.5 Mg Tablet) 2.5 mg PO DAILY [facility]; Protocol Last Admin: 05/03/24 08:57 Dose: 2.5 mg Artificial Tears (Artificial Tears 15 Ml Drops) 2 drop EYE-BOTH Q4H PRN PRN Reason: Dry Eyes Last Admin: 05/02/24 20:03 Dose: 2 drop Atorvastatin Calcium (Atorvastatin Calcium 10 Mg Tablet) 10 mg PO BEDTIME [facility] Last Admin: 05/02/24 20:03 Dose: 10 mg Cyclobenzaprine HCl (Cyclobenzaprine Hcl 5 Mg Tablet) 5 mg PO TID PRN PRN Reason: Back spasms Donepezil HCl (Donepezil Hcl 5 Mg Tablet) 5 mg PO BEDTIME [facility] Last Admin: 05/02/24 20:03 Dose: 5 mg Escitalopram Oxalate (Escitalopram Oxalate 10 Mg Tablet) 10 mg PO DAILY [facility] Last Admin: 05/03/24 08:57 Dose: 10 mg Guaifenesin (Guaifenesin La 600 Mg Tab.Er.12h) 600 mg PO BID [facility] Last Admin: 05/03/24 08:58 Dose: 600 mg Levothyroxine Sodium (Levothyroxine Sodium 88 Mcg Tablet) 88 mcg PO DAILY@0600 [facility] Last Admin: 05/03/24 06:27 Dose: 88 mcg Loperamide HCl (Loperamide Hcl 2 Mg Capsule) 2 mg PO Q4H PRN PRN Reason: Loose Stool Last Admin: 04/24/24 10:06 Dose: 2 mg Loratadine (Loratadine 10 Mg Tablet) 10 mg PO DAILY PRN PRN Reason: seasonal allergies Last Admin: 05/02/24 20:03 Dose: 10 mg Magnesium Hydroxide (Milk Of Magnesia 30 Ml Oral.Susp) 30 ml PO DAILY PRN PRN Reason: Constipation Memantine (Memantine Hcl 5 Mg Tablet) 5 mg PO DAILY [facility] Last Admin: 05/03/24 08:58 Dose: 5 mg Metformin HCl (Metformin Hcl 500 Mg Tablet) 500 mg PO BEDTIME [facility] Last Admin: 05/02/24 20:03 Dose: 500 mg Pt Own (Cyclosporine ([Restasis] 1 Drop)) 1 drop EYE-BOTH BID [facility] Last Admin: 05/03/24 09:01 Dose: Not Given Olanzapine (Olanzapine 2.5 Mg Tablet) 2.5 mg PO Q4H PRN PRN Reason: agitation/acute psychosis Simethicone (Simethicone 80 Mg Tab.Chew) 80 mg PO QIDWMHS PRN PRN Reason: bloating Last Admin: 05/03/24 08:57 Dose: 80 mg Sitagliptin Phosphate (Sitagliptin Phosphate 50 Mg Tablet) 50 mg PO DAILY [facility] Last Admin: 05/03/24 08:57 Dose: 50 mg Trazodone HCl (Trazodone Hcl 50 Mg Tablet) 50 mg PO BEDTIME [facility] PRN PRN Reason: Insomnia Last Admin: 02/05/24 21:08 Dose: 50 mg Vitamin D (Cholecalciferol (Vitamin D3) 25 Mcg Tablet) 25 mcg PO DAILY [facility] Last Admin: 05/03/24 08:57 Dose: 25 mcg Zolpidem Tartrate (Zolpidem Tartrate 5 Mg Tablet) 5 mg PO BEDTIME [facility] Last Admin: 05/02/24 20:03 Dose: 5 mg Allergies Allergies Allergy/AdvReac Type Severity Reaction Status Date / Time codeine Allergy Unknown Verified 12/07/23 20:27 Assessment & Plan Assessment & Plan (1) Dementia with psychotic disturbance: Status: Acute Code(s): F03.92 - Unspecified dementia, unspecified severity, with psychotic disturbance Plan Mrs. Jin is a 83 year-old woman with hx of vascular dementia with delusions of having an affair and some paranoid delusions. Some insight that this may not be the case but pt very much believes and takes action based on delusion despite here reporting that it may not be happening. It is unclear report from [facility] as to suicidal ideation. no indication of imminent harm to self or others, but collateral information is pending from family. May consider antipsychotic. PLAN 1. Continue with same treatment. 2. Waiting for placement. Reason for continued inpatient stay Substantial Risk for: inability to function, rapid decompensation and med/psych decompensation Time Spent With Patient Time: Total time managing care of this patient today __20__ minutes.
[2024-05-03 19:54] VITALS: BP 140/63; PULSE 76; RESP 16; TEMP 36.7; O2SAT 98
[2024-05-03] MEDS: Atorvastatin Calcium 10 MG TABLET PO (19:56)
[2024-05-03] MEDS: Donepezil HCl 5 MG TABLET PO (19:57)
[2024-05-03] MEDS: Zolpidem Tartrate 5 MG TABLET PO (19:57)
[2024-05-03] MEDS: metFORMIN HCl 500 MG TABLET PO (19:57)
[2024-05-03] MEDS: Artificial Tears 15 ML DROPS 2 DROP EYE-BOTH (20:03)
[2024-05-03] MEDS: Loratadine 10 MG TABLET PO (20:03)
[2024-05-04] MEDS: Levothyroxine Sodium 88 MCG TABLET PO (05:28)
[2024-05-04 07:37] LABS: Creatinine Clr Calc Pharmacy 31.5; Estimated Glomerular Filt Rate 33
[2024-05-04 08:00] VITALS: BP 143/65; PULSE 74; RESP 18; TEMP 36.4; O2SAT 97
[2024-05-04] MEDS: Acetaminophen 325 MG TABLET 650 MG PO ×2 (09:11→20:27)
[2024-05-04] MEDS: Cholecalciferol (Vitamin D3) 25 MCG TABLET PO (09:11)
[2024-05-04] MEDS: Memantine HCl 5 MG TABLET PO (09:11)
[2024-05-04] MEDS: Simethicone 80 MG TAB.CHEW PO ×2 (09:11→20:25)
[2024-05-04 09:12] VITALS: BP 143/65
[2024-05-04] MEDS: SITagliptin Phosphate 50 MG TABLET PO (09:12)
[2024-05-04] MEDS: guaiFENesin LA 600 MG TAB.ER.12H PO ×2 (09:12→20:25)
[2024-05-04] MEDS: amLODIPine Besylate 2.5 MG TABLET PO (09:12)
[2024-05-04] MEDS: Escitalopram Oxalate 10 MG TABLET PO (09:12)
[2024-05-04] MEDS: allopurinoL 100 MG TABLET PO (09:12)
[2024-05-04] MEDS: Artificial Tears 15 ML DROPS 2 DROP EYE-BOTH ×2 (09:13→20:29)
--- NOTE | 2024-05-04 13:46 | HO.PSYCHPN ---
Subjective Subjective Date of Service: 05/04/24 Reason For Visit: psychosis Subjective Notes: Conditional Voluntary Interim History: Pt slept through the night. She denies any concerns. She reports she is looking forward to go to facility this Monday. No SI/HI. out in the common area, social with peers. Review of Systems Review of Systems unremarkable Yes all other systems are reviewed and are negative Constitutional: Reports fatigue, Reports malaise and Reports weakness Reports vertigo and Reports dizziness Cardiovascular: Reports lightheadedness Reports vertigo, Reports dizziness and Reports weakness Endocrine: Reports fatigue Mental Status Exam Mental Status Exam Patient Appearance: Well Grooomed and Appropriate Patient Orientation: Person and Situation Level of Consciousness: Awake and Appropriate Patient Behavior: Cooperative and Passive Mood Description: Calm Affect Description: Constricted Patient Cognition Impaired: Yes Ability to Follow Directions: Good Speech Pattern: Clear Memory Description: Intact Diagnostics Vital Signs (24Hr): Vital Signs - 24 hr 05/03/24 19:54 05/04/24 08:00 05/04/24 09:12 Temperature 98.1 F 97.5 F Pulse Rate 76 74 Respiratory Rate 16 18 Blood Pressure 140/63 H 143/65 H 143/65 H Pulse Oximetry 98 97 Oxygen Delivery Method Room Air Room Air BMI result Body Mass Index 34.3 Labs 01/06/24 07:28 05/04/24 07:06 Labs: Laboratory Results - last 48 hr 05/04/24 07:06 Creatinine 1.50 H Estim Creat Clear Calc 31.5 Estimated GFR 33 Medications Medications Current Medications Acetaminophen (Acetaminophen 325 Mg Tablet) 650 mg PO Q6H PRN PRN Reason: Headache/Pain Mild Scale (1-3) Last Admin: 05/04/24 09:11 Dose: 650 mg Al Hydroxide/Mg Hydroxide (Magnesium Hydrox/Alum Hydrox 30 Ml Oral.Susp) 30 ml PO Q6H PRN PRN Reason: Heartburn/Nausea Albuterol Sulfate (Albuterol Sulfate 90 Mcg 8 Gm Inhaler) 2 puff INHALE RQ6H PRN PRN Reason: Wheezing Last Admin: 05/03/24 08:58 Dose: 2 puff Allopurinol (Allopurinol 100 Mg Tablet) 100 mg PO DAILY [facility] Last Admin: 05/04/24 09:12 Dose: 100 mg Amlodipine Besylate (Amlodipine Besylate 2.5 Mg Tablet) 2.5 mg PO DAILY [facility]; Protocol Last Admin: 05/04/24 09:12 Dose: 2.5 mg Artificial Tears (Artificial Tears 15 Ml Drops) 2 drop EYE-BOTH Q4H PRN PRN Reason: Dry Eyes Last Admin: 05/04/24 09:13 Dose: 2 drop Atorvastatin Calcium (Atorvastatin Calcium 10 Mg Tablet) 10 mg PO BEDTIME [facility] Last Admin: 05/03/24 19:56 Dose: 10 mg Cyclobenzaprine HCl (Cyclobenzaprine Hcl 5 Mg Tablet) 5 mg PO TID PRN PRN Reason: Back spasms Donepezil HCl (Donepezil Hcl 5 Mg Tablet) 5 mg PO BEDTIME [facility] Last Admin: 05/03/24 19:57 Dose: 5 mg Escitalopram Oxalate (Escitalopram Oxalate 10 Mg Tablet) 10 mg PO DAILY [facility] Last Admin: 05/04/24 09:12 Dose: 10 mg Guaifenesin (Guaifenesin La 600 Mg Tab.Er.12h) 600 mg PO BID [facility] Last Admin: 05/04/24 09:12 Dose: 600 mg Levothyroxine Sodium (Levothyroxine Sodium 88 Mcg Tablet) 88 mcg PO DAILY@0600 [facility] Last Admin: 05/04/24 05:28 Dose: 88 mcg Loperamide HCl (Loperamide Hcl 2 Mg Capsule) 2 mg PO Q4H PRN PRN Reason: Loose Stool Last Admin: 04/24/24 10:06 Dose: 2 mg Loratadine (Loratadine 10 Mg Tablet) 10 mg PO DAILY PRN PRN Reason: seasonal allergies Last Admin: 05/03/24 20:03 Dose: 10 mg Magnesium Hydroxide (Milk Of Magnesia 30 Ml Oral.Susp) 30 ml PO DAILY PRN PRN Reason: Constipation Memantine (Memantine Hcl 5 Mg Tablet) 5 mg PO DAILY [facility] Last Admin: 05/04/24 09:11 Dose: 5 mg Metformin HCl (Metformin Hcl 500 Mg Tablet) 500 mg PO BEDTIME [facility] Last Admin: 05/03/24 19:57 Dose: 500 mg Pt Own (Cyclosporine ([Restasis] 1 Drop)) 1 drop EYE-BOTH BID [facility] Last Admin: 05/04/24 09:18 Dose: Not Given Olanzapine (Olanzapine 2.5 Mg Tablet) 2.5 mg PO Q4H PRN PRN Reason: agitation/acute psychosis Simethicone (Simethicone 80 Mg Tab.Chew) 80 mg PO QIDWMHS PRN PRN Reason: bloating Last Admin: 05/04/24 09:11 Dose: 80 mg Sitagliptin Phosphate (Sitagliptin Phosphate 50 Mg Tablet) 50 mg PO DAILY [facility] Last Admin: 05/04/24 09:12 Dose: 50 mg Trazodone HCl (Trazodone Hcl 50 Mg Tablet) 50 mg PO BEDTIME MRX1 PRN PRN Reason: Insomnia Last Admin: 02/05/24 21:08 Dose: 50 mg Vitamin D (Cholecalciferol (Vitamin D3) 25 Mcg Tablet) 25 mcg PO DAILY [facility] Last Admin: 05/04/24 09:11 Dose: 25 mcg Zolpidem Tartrate (Zolpidem Tartrate 5 Mg Tablet) 5 mg PO BEDTIME [facility] Last Admin: 05/03/24 19:57 Dose: 5 mg Allergies Allergies Allergy/AdvReac Type Severity Reaction Status Date / Time codeine Allergy Unknown Verified 12/07/23 20:27 Assessment & Plan Assessment & Plan (1) Dementia with psychotic disturbance: Status: Acute Code(s): F03.92 - Unspecified dementia, unspecified severity, with psychotic disturbance Plan Mrs. Jin is a 83 year-old woman with hx of vascular dementia with delusions of having an affair and some paranoid delusions. Some insight that this may not be the case but pt very much believes and takes action based on delusion despite here reporting that it may not be happening. It is unclear report from [facility] as to suicidal ideation. no indication of imminent harm to self or others, but collateral information is pending from family. May consider antipsychotic. PLAN 1. Continue with same treatment. 2. Waiting for placement. Reason for continued inpatient stay Substantial Risk for: inability to function Time Spent With Patient Time: Total time managing care of this patient today ____ minutes.
[2024-05-04 20:00] VITALS: BP 132/76; PULSE 80; RESP 18; TEMP 36.1; O2SAT 97
[2024-05-04] MEDS: metFORMIN HCl 500 MG TABLET PO (20:23)
[2024-05-04] MEDS: Albuterol Sulfate 90 MCG 8 GM INHALER 2 PUFF INHALE (20:23)
[2024-05-04] MEDS: Zolpidem Tartrate 5 MG TABLET PO (20:24)
[2024-05-04] MEDS: Loratadine 10 MG TABLET PO (20:26)
[2024-05-04] MEDS: Atorvastatin Calcium 10 MG TABLET PO (20:26)
[2024-05-04] MEDS: Donepezil HCl 5 MG TABLET PO (20:27)
[2024-05-05] MEDS: Levothyroxine Sodium 88 MCG TABLET PO (06:37)
[2024-05-05 08:04] VITALS: BP 142/65; PULSE 77; RESP 16; TEMP 36.2; O2SAT 96
[2024-05-05] MEDS: Cholecalciferol (Vitamin D3) 25 MCG TABLET PO (09:13)
[2024-05-05] MEDS: Simethicone 80 MG TAB.CHEW PO ×2 (09:13→20:29)
[2024-05-05 09:14] VITALS: BP 138/71
[2024-05-05] MEDS: guaiFENesin LA 600 MG TAB.ER.12H PO ×2 (09:14→20:29)
[2024-05-05] MEDS: Memantine HCl 5 MG TABLET PO (09:14)
[2024-05-05] MEDS: SITagliptin Phosphate 50 MG TABLET PO (09:14)
[2024-05-05] MEDS: Escitalopram Oxalate 10 MG TABLET PO (09:14)
[2024-05-05] MEDS: Acetaminophen 325 MG TABLET 650 MG PO ×2 (09:14→20:28)
[2024-05-05] MEDS: amLODIPine Besylate 2.5 MG TABLET PO (09:14)
[2024-05-05] MEDS: allopurinoL 100 MG TABLET PO (09:14)
[2024-05-05] MEDS: Artificial Tears 15 ML DROPS 2 DROP EYE-BOTH ×2 (09:16→20:29)
--- NOTE | 2024-05-05 12:30 | HO.PSYCHPN ---
Subjective Subjective Date of Service: 05/05/24 Reason For Visit: psychosis Interim History: Pt slept through the night. She denies any concerns. She reports she is looking forward to go to facility this Monday. No SI/HI. out in the common area, social with peers. Review of Systems Review of Systems unremarkable Yes all other systems are reviewed and are negative Constitutional: Reports fatigue, Reports malaise and Reports weakness Reports vertigo and Reports dizziness Cardiovascular: Reports lightheadedness Reports vertigo, Reports dizziness and Reports weakness Endocrine: Reports fatigue Mental Status Exam Mental Status Exam Narrative: sitting up in wheelchair! with sunglasses on but took them off to talk to provider Patient Appearance: Well Grooomed and Appropriate Patient Orientation: Person and Situation Level of Consciousness: Awake and Appropriate Patient Behavior: Cooperative and Passive Mood Description: Calm Affect Description: Constricted Patient Cognition Impaired: Yes Ability to Follow Directions: Good Speech Pattern: Clear Memory Description: Intact Diagnostics Vital Signs (24Hr): Vital Signs - 24 hr 05/04/24 20:00 05/05/24 08:04 05/05/24 09:14 Temperature 97.0 F 97.1 F Pulse Rate 80 77 Respiratory Rate 18 16 Blood Pressure 132/76 142/65 H 138/71 Pulse Oximetry 97 96 Oxygen Delivery Method Room Air Room Air BMI result Body Mass Index 34.3 Labs 01/06/24 07:28 05/04/24 07:06 Labs: Laboratory Results - last 48 hr 05/04/24 07:06 Creatinine 1.50 H Estim Creat Clear Calc 31.5 Estimated GFR 33 Medications Medications Current Medications Acetaminophen (Acetaminophen 325 Mg Tablet) 650 mg PO Q6H PRN PRN Reason: Headache/Pain Mild Scale (1-3) Last Admin: 05/05/24 09:14 Dose: 650 mg Al Hydroxide/Mg Hydroxide (Magnesium Hydrox/Alum Hydrox 30 Ml Oral.Susp) 30 ml PO Q6H PRN PRN Reason: Heartburn/Nausea Albuterol Sulfate (Albuterol Sulfate 90 Mcg 8 Gm Inhaler) 2 puff INHALE RQ6H PRN PRN Reason: Wheezing Last Admin: 05/04/24 20:23 Dose: 2 puff Allopurinol (Allopurinol 100 Mg Tablet) 100 mg PO DAILY [facility] Last Admin: 05/05/24 09:14 Dose: 100 mg Amlodipine Besylate (Amlodipine Besylate 2.5 Mg Tablet) 2.5 mg PO DAILY [facility]; Protocol Last Admin: 05/05/24 09:14 Dose: 2.5 mg Artificial Tears (Artificial Tears 15 Ml Drops) 2 drop EYE-BOTH Q4H PRN PRN Reason: Dry Eyes Last Admin: 05/05/24 09:16 Dose: 2 drop Atorvastatin Calcium (Atorvastatin Calcium 10 Mg Tablet) 10 mg PO BEDTIME [facility] Last Admin: 05/04/24 20:26 Dose: 10 mg Cyclobenzaprine HCl (Cyclobenzaprine Hcl 5 Mg Tablet) 5 mg PO TID PRN PRN Reason: Back spasms Donepezil HCl (Donepezil Hcl 5 Mg Tablet) 5 mg PO BEDTIME [facility] Last Admin: 05/04/24 20:27 Dose: 5 mg Escitalopram Oxalate (Escitalopram Oxalate 10 Mg Tablet) 10 mg PO DAILY [facility] Last Admin: 05/05/24 09:14 Dose: 10 mg Guaifenesin (Guaifenesin La 600 Mg Tab.Er.12h) 600 mg PO BID [facility] Last Admin: 05/05/24 09:14 Dose: 600 mg Levothyroxine Sodium (Levothyroxine Sodium 88 Mcg Tablet) 88 mcg PO DAILY@0600 [facility] Last Admin: 05/05/24 06:37 Dose: 88 mcg Loperamide HCl (Loperamide Hcl 2 Mg Capsule) 2 mg PO Q4H PRN PRN Reason: Loose Stool Last Admin: 04/24/24 10:06 Dose: 2 mg Loratadine (Loratadine 10 Mg Tablet) 10 mg PO DAILY PRN PRN Reason: seasonal allergies Last Admin: 05/04/24 20:26 Dose: 10 mg Magnesium Hydroxide (Milk Of Magnesia 30 Ml Oral.Susp) 30 ml PO DAILY PRN PRN Reason: Constipation Memantine (Memantine Hcl 5 Mg Tablet) 5 mg PO DAILY [facility] Last Admin: 05/05/24 09:14 Dose: 5 mg Metformin HCl (Metformin Hcl 500 Mg Tablet) 500 mg PO BEDTIME [facility] Last Admin: 05/04/24 20:23 Dose: 500 mg Pt Own (Cyclosporine ([Restasis] 1 Drop)) 1 drop EYE-BOTH BID [facility] Last Admin: 05/05/24 09:16 Dose: Not Given Olanzapine (Olanzapine 2.5 Mg Tablet) 2.5 mg PO Q4H PRN PRN Reason: agitation/acute psychosis Simethicone (Simethicone 80 Mg Tab.Chew) 80 mg PO QIDWMHS PRN PRN Reason: bloating Last Admin: 05/05/24 09:13 Dose: 80 mg Sitagliptin Phosphate (Sitagliptin Phosphate 50 Mg Tablet) 50 mg PO DAILY [facility] Last Admin: 05/05/24 09:14 Dose: 50 mg Trazodone HCl (Trazodone Hcl 50 Mg Tablet) 50 mg PO BEDTIME [facility]X1 PRN PRN Reason: Insomnia Last Admin: 02/05/24 21:08 Dose: 50 mg Vitamin D (Cholecalciferol (Vitamin D3) 25 Mcg Tablet) 25 mcg PO DAILY [facility] Last Admin: 05/05/24 09:13 Dose: 25 mcg Zolpidem Tartrate (Zolpidem Tartrate 5 Mg Tablet) 5 mg PO BEDTIME [facility] Last Admin: 05/04/24 20:24 Dose: 5 mg Allergies Allergies Allergy/AdvReac Type Severity Reaction Status Date / Time codeine Allergy Unknown Verified 12/07/23 20:27 Assessment & Plan Assessment & Plan (1) Dementia with psychotic disturbance: Status: Acute Code(s): F03.92 - Unspecified dementia, unspecified severity, with psychotic disturbance Plan Mrs. Jin is a 83 year-old woman with hx of vascular dementia with delusions of having an affair and some paranoid delusions. Some insight that this may not be the case but pt very much believes and takes action based on delusion despite here reporting that it may not be happening. It is unclear report from [facility] as to suicidal ideation. no indication of imminent harm to self or others, but collateral information is pending from family. May consider antipsychotic. PLAN 1. Continue with same treatment. 2. Waiting for placement. Reason for continued inpatient stay Substantial Risk for: inability to function Time Spent With Patient Time: Total time managing care of this patient today ____ minutes.
[2024-05-05 20:00] VITALS: BP 125/57; PULSE 80; RESP 18; TEMP 36.4; O2SAT 95
[2024-05-05] MEDS: Loratadine 10 MG TABLET PO (20:29)
[2024-05-05] MEDS: Zolpidem Tartrate 5 MG TABLET PO (20:29)
[2024-05-05] MEDS: Donepezil HCl 5 MG TABLET PO (20:29)
[2024-05-05] MEDS: metFORMIN HCl 500 MG TABLET PO (20:29)
[2024-05-05] MEDS: Albuterol Sulfate 90 MCG 8 GM INHALER 2 PUFF INHALE (20:29)
[2024-05-05] MEDS: Atorvastatin Calcium 10 MG TABLET PO (20:29)
[2024-05-06] MEDS: Levothyroxine Sodium 88 MCG TABLET PO (05:52)
[2024-05-06 08:00] VITALS: BP 153/67; PULSE 85; RESP 18; TEMP 36.4; O2SAT 97
--- NOTE | 2024-05-06 08:00 | P.DS_ITS ---
DS: Providers Provider Date of Service: 05/06/24 Date of admission: 12/08/23 16:34 Date of discharge: 05/06/24 Primary care physician: Rossana Bower NP Consults: 01/05/24 15:44 Consult to Hospitalist Routine Comment: Please review HTN medication regime. [place]ing [place] [facility] [place] Reason For Exam: hypotension with dizziness, lightheadedness 02/20/24 11:00 Consult to Wound Care Routine Reason for consultation: right toe Attending physician on discharge: Shakeel Cornell DS: Diagnosis Discharge Diagnosis (1) Dementia with psychotic disturbance: Status: Acute DS: Medications Discharge Medications Home Medications: Home Medications ?Medication ?Instructions ?Recorded ?Confirmed metformin 500 mg tablet,extended 750 mg PO BEDTIME 12/07/23 12/07/23 release 24 hr zolpidem 5 mg tablet 5 mg PO BEDTIME 12/07/23 12/08/23 amlodipine 5 mg tablet 2.5 mg PO DAILY 12/08/23 12/08/23 levothyroxine 88 mcg tablet 88 mcg PO DAILY@0600 12/08/23 12/08/23 lorazepam 0.5 mg tablet 0.5 mg PO DAILY PRN anxiety 12/08/23 12/08/23 Previous Rx's ?Medication ?Instructions ?Recorded acetaminophen 325 mg tablet 650 mg (2 x 325 mg) PO Q6H PRN 10/20/23 Headache/Pain Mild Scale (1-3) 30 days #60 tabs allopurinol 100 mg tablet 100 mg PO DAILY 30 days #30 tabs 10/20/23 cholecalciferol (vitamin D3) 25 25 mcg PO DAILY 30 days #30 tabs 10/20/23 mcg (1,000 unit) tablet cholestyramine (with sugar) 4 gram 4 g PO DAILY #60 ea 10/20/23 powder for susp in a packet cyclosporine 0.05 % eye drops in a 1 drp ophthalmic (eye) DAILY #30 ea 10/20/23 dropperette (Restasis) diphenoxylate-atropine 2.5 1 tab PO DAILY PRN Diarrhea 30 10/20/23 mg-0.025 mg tablet (Lomotil) days #30 tabs donepezil 5 mg tablet 5 mg PO BEDTIME 30 days #30 tabs 10/20/23 escitalopram oxalate 10 mg tablet 10 mg PO DAILY 30 days #30 tabs 10/20/23 memantine 5 mg tablet 5 mg PO DAILY 30 days #30 tabs 10/20/23 metoprolol succinate 25 mg 25 mg PO DAILY 30 days #30 tabs 10/20/23 tablet,extended release 24 hr simvastatin 10 mg tablet 10 mg PO BEDTIME 30 days #30 tabs 10/20/23 sitagliptin phosphate 100 mg 100 mg PO DAILY #30 tabs 10/20/23 tablet (Januvia) spironolactone 25 mg tablet 12.5 mg (1/2 x 25 mg) PO DAILY 30 10/20/23 days #15 tabs Mental Status Exam Mental Status Exam Patient Appearance: Well Grooomed and Appropriate Patient Orientation: Person and Situation Level of Consciousness: Awake and Appropriate Patient Behavior: Appropriate and Cooperative Mood Description: Calm Affect Description: Constricted Patient Cognition Impaired: Yes Ability to Follow Directions: Good Speech Pattern: Clear Hallucinations: None Delusions: Not Present Thought Process: Distracted and Goal Oriented Thought Content: positive for [place] and positive for Circumstantial Judgement: Fair Data Data Completed and Pending Completed studies during hospitalization [Text1]: 05/04/24 07:06 Creatinine 1.50 H Estim Creat Clear Calc 31.5 Estimated GFR 33 DS: Summary Hospital Course Hospital Course: The patient is an 83-year-old female with a prior history of dementia who was admitted into the hospital after she became paranoid against her stating that he was having an affair with the A. The patient was assessed by crisis and transferring to this facility for psychiatric stabilization. Please see the HPI of the admission note for further details. The patient is known by this team since she was here before, with a similar presentation. At that time we tried a short course of antipsychotics that we needed to discontinue due to EPS. On dislocation, we treated the UTI that was initially diagnosed and her psychotic symptoms resolved. The patient was not in agreement of taking long-term antipsychotics. We increase her dementia medications with for tolerability. We did several assessments, the occupational therapist reported that she has unstable [place] of 20/30 and her Pete test decreased. Physical therapy also assessed her and it was clear that the patient needed to be in a long-term care, she needed help for the ambulation and transferred from the bed. We had several family meetings and the patient agreed to continue treatment as in a long-term care facility, it took several weeks to get the financial clearance but finally, she was accepted at the long-term facility. Since there were no safety concerns discharge planning was discussed Time spent discussing smoking cessation with patient: 3 to 10 minutes Status at Discharge Cognitive/behavioral status at discharge: Stable, mildly. Impaired at Baseline Functional status at discharge: wheelchair bound Overall status at discharge: patient is back to baseline Time Spent with Patient Time attestation: Total time managing care of this patient today __30__ minutes. Time spent: Less than 30 minutes Discharge Plan Discharge Anticipated Discharge Date/Time: 05/06/24 10:00 Patient Disposition: Xfer SNF Discharge Diagnosis: Dementia Delirium resolved Referrals: Anjel Hlaey MD [Physician] - 05/08/24 1:40 pm (You will see on 05/08/24 at 1:40pm. It will be a telehealth appointment. If you need to reschedule or cancel the appointment please call the number listed.) Rossana Bower NP [Primary Care Provider] - 05/27/24 3:30 pm (You will see Rossana Bower on 05/27/24 at 3:30pm. It will be in person at her office. If you need to reschedule or cancel the appointment please call the number listed) Discharge Medications: New albuterol sulfate [Ventolin HFA] 90 mcg/actuation Hfa Aerosol Inhaler 2 puff inhalation RQ6H PRN (Reason: Wheezing) Qty: 6.7 0RF loratadine 10 mg Tablet 10 mg PO DAILY PRN (Reason: seasonal allergies) 30 Days Qty: 30 0RF amlodipine 2.5 mg Tablet 2.5 mg PO DAILY 30 Days Qty: 30 0RF Protocol: Hold for SBP< HOLD for SBP < : 90 zolpidem 5 mg Tablet 5 mg PO BEDTIME 30 Days Qty: 30 0RF Artificial Tears([id number]) 1-0.2-0.2 % Drops 2 drp ophthalmic (eye) Q4H PRN (Reason: Dry Eyes) 30 Days Qty: 5 0RF cyclobenzaprine 5 mg Tablet 5 mg PO TID PRN (Reason: Back spasms) 30 Days Qty: 30 0RF cyclosporine 0.05 % Dropperette 1 drp ophthalmic (eye) BID Qty: 30 0RF metformin 500 mg Tablet 500 mg PO BEDTIME 30 Days Qty: 30 0RF loperamide 2 mg Capsule 2 mg PO Q4H PRN (Reason: Loose Stool) 30 Days Qty: 30 0RF levothyroxine 88 mcg Tablet 88 mcg PO DAILY@0600 30 Days Qty: 30 0RF simethicone [Gas Relief (simethicone)] 80 mg Tablet,Chewable 80 mg PO QIDWMHS PRN (Reason: bloating) 30 Days Qty: 30 0RF Januvia 50 mg Tablet 50 mg PO DAILY Qty: 30 0RF guaifenesin [Mucinex] 600 mg Tablet Extended Release 12hr 600 mg PO BID 30 Days Qty: 60 0RF Continued acetaminophen 325 mg Tablet 650 mg PO Q6H PRN (Reason: Headache/Pain Mild Scale (1-3)) 30 Days Qty: 60 0RF donepezil 5 mg Tablet 5 mg PO BEDTIME 30 Days Qty: 30 0RF simvastatin 10 mg tablet 10 mg PO BEDTIME 30 Days Qty: 30 0RF allopurinol 100 mg tablet 100 mg PO DAILY 30 Days Qty: 30 0RF escitalopram oxalate 10 mg tablet 10 mg PO DAILY 30 Days Qty: 30 0RF memantine 5 mg Tablet 5 mg PO DAILY 30 Days Qty: 30 0RF cholecalciferol (vitamin D3) 25 mcg (1,000 unit) Tablet 25 mcg PO DAILY 30 Days Qty: 30 0RF Changed lorazepam 0.5 mg tablet 0.5 mg PO DAILY PRN (Reason: anxiety) 30 Days Qty: 15 0RF Discontinued metformin 500 mg tablet extended release 24 hr 750 mg PO BEDTIME zolpidem 5 mg Tablet 5 mg PO BEDTIME amlodipine 5 mg tablet 2.5 mg PO DAILY levothyroxine 88 mcg tablet 88 mcg PO DAILY@0600 diphenoxylate-atropine [Lomotil] 2.5-0.025 mg Tablet 1 tab PO DAILY PRN (Reason: Diarrhea) 30 Days Qty: 30 0RF spironolactone 25 mg tablet 12.5 mg PO DAILY 30 Days Qty: 15 0RF metoprolol succinate 25 mg tablet extended release 24 hr 25 mg PO DAILY 30 Days Qty: 30 0RF cyclosporine [Restasis] 0.05 % Dropperette 1 drp OPHTHALMIC (EYE) DAILY Qty: 30 0RF cholestyramine (with sugar) 4 gram Powder In Packet 4 g PO DAILY Qty: 60 0RF Rx Instructions: mix in 4oz of liq administer w/meal; avoid other meds within 1hr before or 4- 6hr after dose Januvia 100 mg Tablet 100 mg PO DAILY Qty: 30 0RF Discharge Orders: Discharge Order (Routine); Ordered 05/06/24 Ordered By: Shakeel Cornell Diet: Advance to usual diet Activity on Discharge: As tolerated Stand Alone Forms: Patient Portal Discharge page Print Language: Slovenian Care Plan Goals: Care plan goals achieved in this admission Health Concerns: Continue treatment with primary care physician and other specialists as an outpatient Plan of Treatment: Continue treatment as an outpatient Assessment: Elderly female with a history of dementia who was admitted for exacerbation Negro's in the context of delirium that resolve, she did not need antipsychotics to me since. The patient is functionality decreased and she agreed to go to senior living facility. No safety concerns at the moment of the discharge.
[2024-05-06] MEDS: Cholecalciferol (Vitamin D3) 25 MCG TABLET PO (08:07)
[2024-05-06] MEDS: Escitalopram Oxalate 10 MG TABLET PO (08:07)
[2024-05-06] MEDS: Artificial Tears 15 ML DROPS 2 DROP EYE-BOTH (08:07)
[2024-05-06] MEDS: Memantine HCl 5 MG TABLET PO (08:07)
[2024-05-06] MEDS: SITagliptin Phosphate 50 MG TABLET PO (08:07)
[2024-05-06 08:08] VITALS: BP 153/67
[2024-05-06] MEDS: amLODIPine Besylate 2.5 MG TABLET PO (08:08)
[2024-05-06] MEDS: guaiFENesin LA 600 MG TAB.ER.12H PO (08:08)
[2024-05-06] MEDS: Simethicone 80 MG TAB.CHEW PO (08:08)
[2024-05-06] MEDS: Acetaminophen 325 MG TABLET 650 MG PO (08:08)
[2024-05-06] MEDS: allopurinoL 100 MG TABLET PO (08:08)
[2024-05-06] MEDS: Albuterol Sulfate 90 MCG 8 GM INHALER 2 PUFF INHALE (08:18)
--- NOTE | 2024-05-06 13:57 | PC.NURSE ---
Patient was aware of discharge, reported readiness for discharge. D/C instructions given to Kylie. Pt took her belongings. Left the unit at 13:34. Transferred via ambulance to [facility].
== END 2024-05-06 13:34 | disposition skilled nursing facility (03) | DRG 884 ==
LOC: HO.ED 22:11 → HO.PGERI 12-08 16:52
PROVIDERS: Clinical Nurse Specialist Psychiatric/Mental Health, Adult; Hospitalist; Psychiatry & Neurology Psychiatry; Student in an Organized Health Care Education/Training Program; Admitting Provider Social Worker; Emergency Provider Emergency Medicine; PCP Nurse Practitioner Family; Visit Provider Social Worker
DX: F01.52 Vascular dementia, unspecified severity, with psychotic disturbance (principal); R45.851 Suicidal ideations; F05 Delirium due to known physiological condition; E86.0 Dehydration; I95.9 Hypotension, unspecified; R00.1 Bradycardia, unspecified; Z75.1 Person awaiting admission to adequate facility elsewhere; Z99.3 Dependence on wheelchair; Z20.822 Contact with and (suspected) exposure to COVID-19; Z79.899 Other long term (current) drug therapy
CPT/HCPCS: 36415; 80048; 80053; 80061; 80076; 80307; 81001; 82565; 82607; 82746; 82947; 83036; 84443; 85025; 87633; 93005; 99285

== ENCOUNTER → 2023-12-08 16:34 | Outpatient (BNV) | payer MEDICARE, SELFPAY | PROVIDERS: Admitting Provider Social Worker; Emergency Provider Emergency Medicine; PCP Nurse Practitioner Family; Visit Provider Psychiatry & Neurology Psychiatry | DX: F03.92 Unspecified dementia, unspecified severity, with psychotic disturbance (principal) | CPT/HCPCS: 99231 ==

== ENCOUNTER → 2023-12-08 16:34 | Outpatient (BNV) | payer MEDICARE, SELFPAY | PROVIDERS: Admitting Provider Social Worker; Emergency Provider Emergency Medicine; PCP Nurse Practitioner Family; Visit Provider Psychiatry & Neurology Psychiatry | DX: F03.92 Unspecified dementia, unspecified severity, with psychotic disturbance (principal) | CPT/HCPCS: 90792; 99231; 99232 ==